=== PATIENT | male | born 1965 | race Caucasian/White ===

== ENCOUNTER → 2018-04-11 | Outpatient (CLI) | payer OTHER ==
[~2018-04-11] MED LIST: AMPHETAMINE PO; ATR20T PO; CATHETER FLUSH 10 ML SYR IV PRN; CHOL200018 PO; DIAZ10TA PO; GARL200T PO; LAMO100T PO; LISI-552 PO; MULT-974 PO; OMEG-9 PO; OMEP-10 PO; ONDA4TAB8 PO; OXYC-12 PO; RED600TA PO; SAWP1CAP PO; SRTR100T PO; THYR60TA2 PO
[2018-04-11 09:40] VITALS: BP 115/84
[2018-04-11 09:49] VITALS: BP 112/64
--- NOTE | 2018-04-12 07:16 | STRESS TEST ---
DATE OF SERVICE: 04/11/2018 EXERCISE MYOVIEW STRESS TEST REPORT REFERRING PHYSICIAN: Dr. Francisco. Baseline heart rate is 83, baseline blood pressure 102/78. Baseline EKG is sinus rhythm with no significant abnormality. In summary, the patient was injected with 10.97 mCi of technetium-99 Myoview and the resting images were obtained. Then, the patient started exercising with a baseline heart rate, blood pressure and EKG as mentioned above. The patient was able to exercise for 7 minutes on standard Nehemias protocol. With peak exercise level, EKG was showing no acute ischemic changes. Blood pressure was 141/87. During recovery, heart rate and blood pressure returned to baseline. EKG returned to baseline. The resting and stress images were reviewed and compared in the short axis, horizontal long axis and vertical long axis views. Review of the images showed diaphragmatic attenuation with typical male pattern and no significant ischemia or infarction on SPECT images. SSS is 3, SDS 3, TID value 0.98. On the gated images, the left ventricle appeared to be in normal size with normal contractility. Calculated ejection fraction is 63%. CONCLUSION: 1. Fair exercise tolerance, a total of 7 minutes on standard Nehemias protocol, total of 8.3 METS achieving 92% of maximum expected heart rate. 2. Appropriate heart rate and blood pressure response to exercise returned to baseline during recovery. 3. Typical male pattern with diaphragmatic attenuation with no significant ischemia or infarction on SPECT images. Job ID: [id number] DocumentID: [id number] Dictated Date: 04/12/2018 06:39:42 Auto Glass Technician Date: 04/12/2018 07:15:50 Dictated By: MARVIN VERDUZCO MD
== END ==
LOC: CARD 07:31
PROVIDERS: ATTEND Internal Medicine Cardiovascular Disease
DX: R07.89 Other chest pain (principal); I10 Essential (primary) hypertension; E78.2 Mixed hyperlipidemia; E78.00 Pure hypercholesterolemia, unspecified; K21.9 Gastro-esophageal reflux disease without esophagitis
CPT/HCPCS: 78452; 93017

== ENCOUNTER → 2018-04-30 | Outpatient (CLI) | payer OTHER ==
[~2018-04-30] MED LIST changes: -CATHETER FLUSH 10 ML SYR IV PRN
== END ==
LOC: CARD 08:43
PROVIDERS: ATTEND Internal Medicine Cardiovascular Disease
DX: R07.89 Other chest pain (principal); I10 Essential (primary) hypertension; E78.2 Mixed hyperlipidemia; E78.00 Pure hypercholesterolemia, unspecified; K21.9 Gastro-esophageal reflux disease without esophagitis; I07.1 Rheumatic tricuspid insufficiency
CPT/HCPCS: 93306

== ENCOUNTER 2019-11-11 14:55 | Emergency (ER) | payer OTHER ==
[~2019-11-11] VITALS: Ht 167.7 cm; Wt 72.6 kg
[~2019-11-11 14:55] MED LIST changes: -LAMO100T PO; +LAMO100T5 PO
[2019-11-11] MEDS ORDERED: KETOROLAC 30 MG/ML VIAL IVP ONE (15:15)
[2019-11-11] MEDS ORDERED: ORPHENADRINE 60 MG/2 ML (NORFLEX) AMP IV ONE (15:15)
[2019-11-11] MEDS ORDERED: fentaNYL INJECTION 100 MCG/2 ML AMP IVP ONE (15:15)
--- NOTE | 2019-11-11 15:16 | ED Back Pain ---
General Chief Complaint: Back Problems Stated Complaint: BACK PAIN Source of Information: Patient Exam Limitations: No Limitations History of Present Illness Date Seen by Provider: November 11, 2019 Time Seen by Provider: 15:13 Initial Comments To ER with right-sided low back pain that began yesterday. He bent down to pepper picker a small piece of wood out of the yard after he finished mowing and had sudden onset of worsening of his chronic low back pain. This is right-sided greater than left. He does report some mild tingling sensation in both feet but has normal sensation and can feel everything fine he states. He is able to move both legs. No fever no chills. No loss of sensation of genitals or loss of control of bowel or bladder. Is taken to the [facility] yesterday for this pain and was given prednisone Toradol injection and Flexeril prescription. Denies much improvement despite taking these. 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, states he'll also need a note to be off the rest of the week. Location: Lumbar Spine, Paraspinous Muscles Timing/Duration: 1-2 Days Severity: Moderate Pain/Injury Location: Back Associated Symptoms: lower back pain Allergies and Home Medications Allergies Coded Allergies: codeine (Unverified Adverse Reaction, Unknown, 09/29/14) MAKES HIM FEEL DRUNK Home Medications Atorvastatin 20 Mg Tablet, 20 MG PO DAILY, (Reported) Lamotrigine 100 Mg Tablet, 100 MG PO HS, (Reported) Lisinopril 20 Mg Tablet, 20 MG PO DAILY, (Reported) Omeprazole 20 Mg Capsule.dr, 20 MG PO HS, (Reported) Ondansetron 4 Mg Tab.rapdis, 4 MG PO Q4H PRN for NAUSEA/VOMITING Prescribed by: RICHARD GIBBONS on 10/04/15 1319 [Amphetamine] , 200 MG PO BID, (Reported) Patient Home Medication List Home Medication List Reviewed: Yes Review of Systems Constitutional: see HPI; No chills, No fever EENTM: see HPI Respiratory: no symptoms reported Cardiovascular: no symptoms reported Genitourinary: no symptoms reported Musculoskeletal: see HPI, back pain Skin: no symptoms reported Psychiatric/Neurological: No Symptoms Reported Past Dsnbnxq-Ophunk-Skvbim Hx Patient Social History Alcohol Use: Denies Use Recreational Drug Use: No Smoking Status: Never a Smoker 2nd Hand Smoke Exposure: No Recent Hopitalizations: No Physical Abuse: No Sexual Abuse: No Mistreated: No Fear: No Immunizations Up To Date Date of Pneumonia Vaccine: Feb 06, 2010 Date of Influenza Vaccine: May 01, 2014 Seasonal Allergies Seasonal Allergies: No Past Medical History Surgeries: Yes Abdominal Respiratory: No Cardiac: Yes (TACHYCARDIA) High Cholesterol, Hypertension Neurological: No Reproductive Disorders: No Genitourinary: No Gastrointestinal: Yes (INGUINAL HERNIA) Musculoskeletal: No Endocrine: No Cancer: No Psychosocial: Yes ADD/ADHD Blood Disorders: No Family Medical History Heart Disease Physical Exam Vital Signs Vital Signs - First Documented 11/11/19 15:11 Temp 37.0 Pulse 97 Resp 18 B/P (MAP) 137/90 (106) O2 Delivery Room Air Capillary Refill : Height, Weight, BMI Height: 5'6" Weight: 150lbs. oz. 68.702409vp; BMI Method:Stated General Appearance: WD/WN, Mild Distress (unable to stand without assistance because of pain, any movement causes him to yell out.) Neck: Full Range of Motion, Normal Inspection Respiratory: No Accessory Muscle Use, No Respiratory Distress Gastrointestinal: Normal Bowel Sounds, Non Tender, Soft Back: Normal Inspection, Decreased Range of Motion; No Vertebral Tenderness Extremity: Normal Capillary Refill, Normal Inspection Neurologic/Psychiatric: Alert, Oriented x3 Skin: Normal Color, Warm/Dry Progress/Results/Core Measures Results/Orders Lab Results Laboratory Tests Test 11/11/19 15:05 Range/Units White Blood Count 11.2 H 4.3-11.0 10^3/uL Red Blood Count 4.99 4.35-5.85 10^6/uL Hemoglobin 15.6 13.3-17.7 G/DL Hematocrit 46 40-54 % Mean Corpuscular Volume 91 80-99 FL Mean Corpuscular Hemoglobin 31 25-34 PG Mean Corpuscular Hemoglobin Concent 34 32-36 G/DL Red Cell Distribution Width 12.3 10.0-14.5 % Platelet Count 295 130-400 10^3/uL Mean Platelet Volume 9.9 7.4-10.4 FL Neutrophils (%) (Auto) 73 42-75 % Lymphocytes (%) (Auto) 20 12-44 % Monocytes (%) (Auto) 7 0-12 % Eosinophils (%) (Auto) 1 0-10 % Basophils (%) (Auto) 0 0-10 % Neutrophils # (Auto) 8.2 H 1.8-7.8 X 10^3 Lymphocytes # (Auto) 2.2 1.0-4.0 X 10^3 Monocytes # (Auto) 0.8 0.0-1.0 X 10^3 Eosinophils # (Auto) 0.1 0.0-0.3 10^3/uL Basophils # (Auto) 0.0 0.0-0.1 10^3/uL Sodium Level 138 135-145 MMOL/L Potassium Level 4.0 3.6-5.0 MMOL/L Chloride Level 107 98-107 MMOL/L Carbon Dioxide Level 21 21-32 MMOL/L Anion Gap 10 5-14 MMOL/L Blood Urea Nitrogen 19 H 7-18 MG/DL Creatinine 1.36 H 0.60-1.30 MG/DL Estimat Glomerular Filtration Rate 55 BUN/Creatinine Ratio 14 Glucose Level 90 70-105 MG/DL Calcium Level 9.8 8.5-10.1 MG/DL C-Reactive Protein High Sensitivity 0.09 0.00-0.50 MG/DL My Orders Orders - JUANA MAURICIO APRN Cbc With Automated Diff (11/11/19 15:11) Basic Metabolic Panel (11/11/19 15:11) Hs C Reactive Protein (11/11/19 15:11) Ct Lumbar Spine Wo (11/11/19 15:11) Ed Iv/Invasive Line Start (11/11/19 15:11) Ketorolac Injection (Toradol Injection) (11/11/19 15:15) Fentanyl Injection (Sublimaze Injection (11/11/19 15:15) Orphenadrine Injection (Norflex Injectio (11/11/19 15:15) Lactated Ringers (Lr 1000 Ml Iv Solution (11/11/19 16:00) Medications Given in ED Current Medications Medications Dose Ordered Sig/Katya Route Start Time Stop Time Status Last Admin Dose Admin Fentanyl Citrate 50 mcg ONCE ONCE IVP 11/11/19 15:15 11/11/19 15:16 DC 11/11/19 15:19 50 MCG Ketorolac Tromethamine 15 mg ONCE ONCE IVP 11/11/19 15:15 11/11/19 15:16 DC 11/11/19 15:19 15 MG Orphenadrine Citrate 60 mg ONCE ONCE IV 11/11/19 15:15 11/11/19 15:16 DC 11/11/19 15:19 60 MG Vital Signs/I&O 11/11/19 15:11 Temp 37.0 Pulse 97 Resp 18 B/P (MAP) 137/90 (106) O2 Delivery Room Air Diagnostic Imaging Diagonstic Imaging: CT Comments NAME: NOEL CHENG REC#: [id number] PT STATUS: REG ER : 1965 PHYSICIAN: JUANA MAURICIO APRN ADMIT DATE: 11/11/19/ER Signed Date of Exam:11/11/19 CT LUMBAR SPINE WO PROCEDURE: CT lumbar spine without contrast. TECHNIQUE: Multiple contiguous axial images were obtained through the lumbar spine without the use of intravenous contrast. Sagittal and coronal reformations were then performed. Auto Exposure Controls were utilized during the CT exam to meet ALARA standards for radiation dose reduction. INDICATION: Back pain. [place] something pull while bending over. COMPARISON: None. FINDINGS: Five lumbar type vertebral bodies are visualized with the last well-formed disc space designated L5-S1. No acute fracture or dislocation is seen in the lumbar spine. Alignment is anatomic. The vertebral body heights and disc spaces are well maintained. No focal osseous lesions are identified. Small Schmorl's nodes are visualized in the lumbar spine at the L2-L3 and L4-L5 levels. Mild degenerative changes are present in the lumbar spine with disc bulges, facet hypertrophy, and marginal osteophytes. These appear greatest at the L5-S1 level. The surrounding soft tissues of the lumbar spine demonstrate no acute abnormalities. Views of the pelvis demonstrate normal alignment of the SI joints bilaterally. IMPRESSION: 1. No acute fracture or dislocation in the lumbar spine. 2. Mild degenerative changes in the lumbar spine, greatest at L5-S1. Dictated by: Dictated on workstation # [id number] Dict: 11/11/19 1542 Trans: 11/11/19 1554 [id number] Interpreted by: ANDRADE DELANEY DO Electronically signed by: ANDRADE DELANEY DO 11/11/19 1554 Departure Communication (Admissions) 2714-he was offered additional pain medication at this time but declines, states he doesn't need any right now. I'll give a liter of IV fluids given slightly bumped BUN/creatinine. Impression Primary Impression: Acute low back pain Qualified Codes: M54.5 - Low back pain Disposition: 01 HOME, SELF-CARE Condition: Stable Departure-Patient Inst. Decision time for Depature: 15:59 Referrals: FALLON JOHNSON MD (PCP/Family) Primary Care Physician Patient Instructions: Low Back Pain (DC) Add. Discharge Instructions: 1. Follow-up with your doctor or [facility] later this week for recheck. If pain persists discuss scheduling an MRI. All discharge instructions reviewed with patient and/or family. Voiced understanding. Work/School Note: Work Release Form Date Seen in the Emergency Department: November 11, 2019 Return to Work: November 18, 2019 Images Torso/Trunk 1 - JUANA MAURICIO APRN November 11, 2019 15:16
[2019-11-11 15:19] LABS: BASOPHILS % (AUTO) 0 % (0-10); EOSINOPHILS # (AUTO) 0.1 10^3/uL (0.0-0.3); EOSINOPHILS % (AUTO) 1 % (0-10); HEMATOCRIT 46 % (40-54); HEMOGLOBIN 15.6 G/DL (13.3-17.7); LYMPHOCYTES # (AUTO) 2.2 X 10^3 (1.0-4.0); LYMPHOCYTES % (AUTO) 20 % (12-44); MEAN CORPUSCULAR HEMOGLOBIN 31 PG (25-34); MEAN CORPUSCULAR HGB CONC 34 G/DL (32-36); MEAN CORPUSCULAR VOLUME 91 FL (80-99); MEAN PLATELET VOLUME 9.9 FL (7.4-10.4); MONOCYTES # (AUTO) 0.8 X 10^3 (0.0-1.0); MONOCYTES % (AUTO) 7 % (0-12); NEUTROPHILS # (AUTO) 8.2 X 10^3 (1.8-7.8); NEUTROPHILS % (AUTO) 73 % (42-75); PLATELET COUNT 295 10^3/uL (130-400); RED CELL DISTRIBUTION WIDTH 12.3 % (10.0-14.5); WHITE BLOOD COUNT 11.2 10^3/uL (4.3-11.0)
[2019-11-11 15:26] LABS: CALCIUM 9.8 MG/DL (8.5-10.1)
[2019-11-11 15:30] LABS: CREATININE SERUM 1.36 MG/DL (0.60-1.30)
--- NOTE | 2019-11-11 15:51 | Diagnostic Imaging Report ---
PROCEDURE: CT lumbar spine without contrast. TECHNIQUE: Multiple contiguous axial images were obtained through the lumbar spine without the use of intravenous contrast. Sagittal and coronal reformations were then performed. Auto Exposure Controls were utilized during the CT exam to meet ALARA standards for radiation dose reduction. INDICATION: Back pain. [place] something pull while bending over. COMPARISON: None. FINDINGS: Five lumbar type vertebral bodies are visualized with the last well-formed disc space designated L5-S1. No acute fracture or dislocation is seen in the lumbar spine. Alignment is anatomic. The vertebral body heights and disc spaces are well maintained. No focal osseous lesions are identified. Small Schmorl's nodes are visualized in the lumbar spine at the L2-L3 and L4-L5 levels. Mild degenerative changes are present in the lumbar spine with disc bulges, facet hypertrophy, and marginal osteophytes. These appear greatest at the L5-S1 level. The surrounding soft tissues of the lumbar spine demonstrate no acute abnormalities. Views of the pelvis demonstrate normal alignment of the SI joints bilaterally. IMPRESSION: 1. No acute fracture or dislocation in the lumbar spine. 2. Mild degenerative changes in the lumbar spine, greatest at L5-S1. Dictated by: Dictated on workstation # [id number]
[2019-11-11] MEDS ORDERED: HYDR-3870 PO (15:59)
[2019-11-11] MEDS ORDERED: LACTATED RINGERS 1,000 ML IV SCH (16:00)
[2019-11-11 16:49] VITALS: BP 124/71
--- OUTSIDE RECORDS SUMMARY | 2019-11-11 19:05 | XMS REPORT ---
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 [employer] [facility] [facility] Address [address] [address] Care Team Providers Care Environmental Services Worker Name Role Phone FLEX, GUILLERMO Unavailable Unavailable FLEX, GUILLERMO Unavailable FALLON JOHNSON Unavailable Unavailable FALLON JOHNSON Unavailable SKYLAR THOMPSON Unavailable Unavailable FALLON JOHNSON Unavailable FLEX, GUILLERMO Unavailable FALLON JOHNSON Unavailable FLEX, GUILLERMO Unavailable FLEX, GUILELRMO Unavailable FLEX, GUILLERMO Unavailable FLEX, GUILLERMO Unavailable FLEX, GUILLERMO Unavailable LANE DIAZ Unavailable FLEX, GUILLERMO Unavailable FLEX, GUILLERMO Unavailable FALLON JOHNSON Unavailable GERRY BOATENG Unavailable FLEX, GUILLERMO Unavailable FLEX, GUILLERMO Unavailable FLEX, GUILLERMO Unavailable FLEX, GUILLERMO Unavailable FLEX, GUILLERMO Unavailable FRANKLIN HIGGINS Unavailable FLEX, GUILLERMO Unavailable FLEX, GUILLERMO Unavailable FLEX, GUILLERMO Unavailable ERASTO ARRIAGA Unavailable FLEX, GUILLERMO Unavailable FALLON JOHNSON Unavailable FLEX, GUILLERMO Unavailable HUERTDARRION, FALLON Unavailable FLEX, GUILLERMO Unavailable FLEX, GUILLERMO Unavailable FLEX, GUILLERMO Unavailable Migration, Doctor Unavailable Unavailable Migration, Doctor Unavailable Unavailable Migration, Doctor Unavailable Unavailable FLEX, GUILLERMO Unavailable DONNA, SKYLAR Unavailable HUERTER, FALLON Unavailable HUERTDARRION, FALLON Unavailable FLEX, GUILLERMO Unavailable FLEX, GUILLERMO Unavailable SKYLAR THOMPSON Unavailable ERTER, FALLON Unavailable ERTDARRION, FALLON Unavailable FLEX, GUILLERMO Unavailable ERTFALLON MAIER Unavailable FLEX, GUILLERMO Unavailable FLEX, GUILLERMO Unavailable FLEX, GUILLERMO Unavailable DONNA, SKYLAR [facility]available [facility] Un[facility] FLEX, GUILLERMO Unavailable FLEX, GUILLERMO Unavailable FALLON SUMMERS Unavailable FLEX, GUILLERMO Unavailable FLEX, GUILLERMO Unavailable FALLON JOHNSON Unavailable Unavailable MARVIN VERDUZCO MD Unavailable Unavailable Unavailable Unavailable SKYLAR THOMPSON Unavailable FLEX, GUILLERMO Unavailable DONNA SKYLAR Unavailable HOLLEY PEREA DO Unavailable Unavailable MD Erick JOHNSON PCP Unavailable Unavailable Unavailable Unavailable Unavailable Unavailable Unavailable Unavailable Unavailable Unavailable Allergies Normalized Allergy Reported Date of Reaction(s) Care Provider Facility Allergy Type classification allergen Allergy Onset Drug Allergy Amoxicillin / Amoxicillin / 09-10-2018 - stomach up set [facility] (1 source.) Clavulanate Clavulanate [facility] [address] [facility] nter Translations: of [facility] [ Augmentin] [place] ([address]) Medications Medication Ingredient Drug Dose Dates Status Sig Sig Care Class(es) (Normalized) (Original) Provid er no Acetaminoph no Active no Tylenol no information en information information Active name (1 source.) amoxicillin amoxicillin Penicillin- 12-11-19 Active no Augme ntin no 875 mg / / class 18 - information 875-125 MG name clavulanate clavulanate Antibacteri 12-18-19 Orally every 125 mg oral Translation al 18 12 hrs 1 tablet (1 s: [ tablet 12h source.) Augmentin Dec, 875-125 MG] Dec, 07 days Active cyclobenzap cyclobenzap Muscle 10 mg 09-11-19 Active take 1 Cyc lobenzapr no rine rine Relaxant 19 tablet by ine HCl 10 name hydrochlori Translation mouth three MG Orally de 10 mg s: [ times daily Three times oral tablet Cyclobenzap as needed a day 1 (3 rine HCl 10 tablet as sources.) mg, needed 8h 11 Cyclobenzap Aug, 2018 7 rine HCl 10 days Active mg] 10 mg 03-06-2018 Suspended no Cycloben no name - inform zaprine 04-05-2018 ation HCl 10 mg Orally Three times a day 1 tablet as needed 8h Mar, 4 Apr, 2018 30 days Not-Taki ng HYDROcodone HYDROcodone Opioid 03-06-20 Active no Hydrocodon e- no bitartrate / ibuprofen Agonist, 18 - information Ibuprofen name 7.5 mg / Translation Nonsteroida 03-11-20 7.5-200 MG ibuprofen s: [ l 18 Orally 3 200 mg oral Hydrocodone Anti-inflam times a day tablet (1 -Ibuprofen matory Drug 1 tablet as source.) 7.5-200 MG] needed 8h Mar, 9 Mar, 2018 05 days Active no Ibuprofen Nonsteroida Active no Ibuprofen no information l information Active name (1 source.) Anti-inflam matory Drug 24 hr Methylpheni Central 27 mg 08-20-19 Active take 1 Methylp henid no methylpheni date Nervous 19 tablet by ate HCl ER nam e date Translation System mouth once 27 MG Orally hydrochlori s: [ Stimulant daily in the Once a day de 27 mg Methylpheni morning for ADHD 1 extended date HCl ER tablet in release 27 MG] the morning oral tablet Aug, (2 28 days sources.) Active Problems Problem Normalized Date Last Normalized Normalized Provider Juan lin Classification Problem(s) Recorded Problem Problem Sta tus Duration Attention-defi Attention Chronic Active GUILLERMO Communi ty cit, conduct, deficit [place] [address] [facility] and disruptive disorder of [facility] behavior without [place] ([address]) disorders (20 mention of sources.) hyperactivity Translations: [ - Attention deficit disorder of childhood without mention of hyperactivity 314.00, - Attention deficit disorder of childhood without mention of hyperactivity 314.00] Other Diarrhea, Episodic Active no name no informati on gastrointestin unspecified al disorders (3 sources.) Fluid and Hypovolemia Episodic Active MD FALLON Nichols Via electrolyte Translations: ERT 12250 [facility] disorders (4 [ Hypovolemia] (Work Phone: Hospital sources.) (24560) ) NEGATED Mixed no information Active MARVIN VERDUZCO , Not Available no hyperlipidemia (85768) information (5 Translations: sources.) [ PURE HYPERCHOLESTER OLEMIA, UNSPECIFIED] Nonspecific Other chest Episodic Active GUILLERMO Communit y chest pain (20 pain [place] [address] [facility] sources.) Translations: of [facility] [ - Chest [place] ([address]) pain, exertional R07.9, - Exertional chest pain R07.9, - Chest pain, exertional R07.9, - Exertional chest pain R07.9] 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 (44588) 09-10-2018 Ketorolac tromethamine no information no name [facility] (45246) 09-10-2018 Therapeutic no information no name [facility] ealt prophylactic/dx [facility] injection subq/im [place] (02169) Immunizations Normalized Immunization Date Notes Care Provider Facili ty Immunization influenza, seasonal, 04-21-2019 no information no name [facility] (31773) influenza, seasonal, 05-03-2018 no information no name [facility] (02958) TORADOL (IM) 60 09-10-2018 no information ION ARMACHANDRAN [facility] MG/2ML (UP TO 15 MG) [address] [facility] (88869) Results Test Name Value Interpretation Reference Range Date Time Fa cility (Normalized) (Normalized) (Medline Reference) laboratory on 2019-11-11 Anion gap 10 mmol/L (NEG) 3 - 11 mmol/L 11-11-2019 PENDING LOCATION [Moles/Vol] 11:05-0400 [facility] (06863) Basophils (Bld) 0.0 10*3/uL (NEG) 0 - 0.3 10*3/uL 11-11-2019 PENDING LOCATION [#/Vol] 11:05-0400 [facility] (66296) Basophils/100 0 % (NEG) 0.5 - 1 % 11-11-2019 PENDING LOCATION WBC (Bld) 11:05-0400 [facility] (98048) Calcium 9.8 mg/dL (NEG) 8.5 - 10.2 mg/dL 11-11-2019 PENDI NG LOCATION [Mass/Vol] 11:05-0400 [facility] (33999) Chloride 107 mmol/L (NEG) 95 - 106 mmol/L 11-11-2019 PENDI NG LOCATION [Moles/Vol] 11:05-0400 [facility] (16494) CO2 [Moles/Vol] 21 mmol/L (NEG) 23 - 29 mmol/L 11-11-2019 P ENDING LOCATION 11:05-0400 [facility] (97563) Creatinine 1.36 mg/dL (H) 11-11-2019 PENDING LOCATI ON [Mass/Vol] 11:05-0400 [facility] (36089) Creatinine and 55 (no code) 11-11-2019 PENDING LOC ATION Glomerular 11:05-0400 [facility] (47900) filtration rate.predicted panel - Serum, Plasma or Blood CRP [Mass/Vol] 0.09 (NEG) 11-11-2019 PENDING LOC ATION 11:05-0400 [facility] (77939) Eosinophils 0.1 10*3/uL (NEG) 0.05 - 0.5 11-11-2019 PENDING LOCATION (Bld) [#/Vol] 10*3/uL 11:05-0400 [facility] (49473) Eosinophils/100 1 % (NEG) 1 - 4 % 11-11-2019 [facility] LOCATION WBC (Bld) 11:05-0400 [facility] (52369) Erythrocyte 12.3 % (NEG) 11.6 - 14.6 % 11-11-2019 [facility] LOCATION distribution 11:05-0400 [facility] (89661) width (RBC) [Ratio] Glucose 90 mg/dL (NEG) 60 - 125 mg/dL 11-11-2019 PENDING LOCATION [Mass/Vol] 11:05-0400 [facility] (80961) Hematocrit (Bld) 46 % (NEG) 36.1 - 50.3 % 11-11-2019 P ENDING LOCATION [Volume 11:05-0400 [facility] (76690) fraction] Hemoglobin (Bld) 15.6 g/dL (NEG) 12.1 - 17.2 g/dL 11-11-2019 PENDING LOCATION [Mass/Vol] 11:05-0400 [facility] (07470) Lymphocytes 2.2 10*3/uL (NEG) 0.9 - 2.9 11-11-2019 PENDING LOCATION (Bld) [#/Vol] 10*3/uL 11:05-0400 [facility] (49730) Lymphocytes/100 20 % (NEG) 20 - 40 % 11-11-2019 [facility] LOCATION WBC (Bld) 11:05-0400 [facility] (42570) MCH (RBC) 31 pg (NEG) 27 - 31 pg 11-11-2019 PENDING LOC ATION [Entitic mass] 11:05-0400 [facility] (89207) MCHC (RBC) 34 g/dL (NEG) 32 - 36 g/dL 11-11-2019 PENDING LOCATION [Mass/Vol] 11:05-0400 [facility] (52322) MCV (RBC) 91 (NEG) 11-11-2019 PENDING LOCATI ON [Entitic vol] 11:05-0400 [facility] (64847) Monocytes (Bld) 0.8 10*3/uL (NEG) 0.3 - 0.9 11-11-2019 PEND ING LOCATION [#/Vol] 10*3/uL 11:05-0400 [facility] (52855) Monocytes/100 7 % (NEG) 2 - 8 % 11-11-2019 PENDING LOCATION WBC (Bld) 11:05-0400 [facility] (14817) Neutrophils 8.2 10*3/uL (H) 1.7 - 7 10*3/uL 11-11-2019 PE NDING LOCATION (Bld) [#/Vol] 11:05-0400 [facility] (99448) Neutrophils/100 73 % (NEG) 40 - 60 % 11-11-2019 PENDIN G LOCATION WBC (Bld) 11:0400 [facility] (99955) Platelet mean 9.9 (NEG) 11-11-2019 PENDING LOCA TION volume (Bld) 11:05-0400 [facility] (61756) [Entitic vol] Platelets (Bld) 295 10*3/uL (NEG) 150 - 450 11-11-2019 PEND ING LOCATION [#/Vol] 10*3/uL 11:05-0400 [facility] (57182) Potassium 4.0 mmol/L (NEG) 3.7 - 5.2 mmol/L 11-11-2019 PEND ING LOCATION [Moles/Vol] 11:05-0400 [facility] (49225) RBC (Bld) 4.99 10*6/uL (NEG) 4.2 - 6.1 11-11-2019 PENDING L OCATION [#/Vol] 10*6/uL 11:05-0400 [facility] (29471) Sodium 138 mmol/L (NEG) 135 - 145 mmol/L 11-11-2019 PEND ING LOCATION [Moles/Vol] 11:05-0400 [facility] (28305) Urea nitrogen 19 mg/dL (H) 7 - 20 mg/dL 11-11-2019 PENDI NG LOCATION [Mass/Vol] 11:05-0400 [facility] (27621) Urea 14 mg/mg (no code) 6 - 22 mg/mg 11-11-2019 PENDING L OCATION nitrogen/Creatin 11:050400 [facility] (88423) ine [Mass ratio] WBC (Bld) 11.2 10*3/uL (H) 3.5 - 10.5 11-11-2019 PENDING LOCATION [#/Vol] 10*3/uL 11: [facility] (22668) laboratory on 2019-10-10 Appearance (U) CLEAR (N) [facility] (19151) Bacteria LM.HPF NONE SEEN (N) [facility] (Urine sed) [facility] [#/Area] [facility] (81673) Bilirubin Ql (U) Negative (N) [facility] (72881) Color (U) YELLOW (N) [facility] (89651) Creatinine (U) 113 mg/dL (N) [facility] [Mass/Vol] [facility] (46745) Epithelial NONE SEEN (N) [facility] cells.squamous [facility] LM.HPF (Urine [facility] sed) [#/Area] (73908) Glucose Ql (U) Negative (N) [facility] (70018) Hemoglobin Ql Negative (N) [facility] h (U) [facility] (61286) Hyaline casts NONE SEEN (N) [facility] (Urine sed) [facility] [#/Area] [facility] (09831) Ketones Ql (U) Negative (N) [facility] (80353) Leukocyte Negative (N) [facility] esterase Test Center [facility] Ql (U) [facility] (99048) Nitrite Ql (U) Negative (N) [facility] (31408) pH (U) 5.5 [pH] (N) 4.6 - 8 [pH] [facility] alth [facility] (66816) Protein (U) 6 mg/dL (N) 0 - 20 mg/dL [facility] alth [Mass/Vol] [facility] (65901) Protein Ql (U) Negative (N) [facility] (43723) Protein/Creatini 53 (N) [facility] ne (U) [Mass [facility] ratio] [facility] (75414) RBC LM.HPF NONE SEEN (N) [facility] h (Urine sed) [facility] [#/Area] [facility] (09449) Specific gravity 1.019 (N) [facility] (U) [[facility]] [facility] (92471) WBC LM.HPF NONE SEEN (N) [facility] (Urine sed) [facility] [#/Area] [facility] (40451) laboratory on 2019-08-30 Albumin 4.6 g/dL (N) 3.4 - 5.4 g/dL [facility] [Mass/Vol] [facility] (99164) Albumin/Globulin 2.0 {ratio} (N) 1 - 2.5 {ratio} Comm [facility] [Mass ratio] [facility] (36903) ALP [Catalytic 92 U/L (N) 44 - 147 U/L [facility] Health activity/Vol] [facility] (67459) ALT [Catalytic 44 U/L (N) 4 - 40 U/L [facility] ealth activity/Vol] [facility] (93796) AST [Catalytic 27 U/L (N) 10 - 34 U/L [facility] activity/Vol] [facility] (46295) Bilirubin 0.6 mg/dL (N) 0.1 - 1.2 mg/dL [facility] [Mass/Vol] [facility] (09094) Calcium 9.9 mg/dL (N) 8.5 - 10.2 mg/dL [facility] [Mass/Vol] [facility] (31020) Chloride 103 mmol/L (N) 95 - 106 mmol/L [facility] [Moles/Vol] [facility] (79293) Cholesterol 204 mg/dL (H) 180 - 200 mg/dL [facility] [Mass/Vol] [facility] (10448) Cholesterol in 45 mg/dL (N) [facility] HDL [Mass/Vol] [facility] (24608) Cholesterol in 123 mg/dL (H) 0 - 100 mg/dL [facility] LDL [Mass/Vol] [facility] (68535) Cholesterol non 159 mg/dL (H) [facility] HDL [Mass/Vol] [facility] (06338) Cholesterol.tota 4.5 {ratio} (N) [facility] Hea lth l/Cholesterol in [facility] HDL [Mass ratio] [facility] (25449) CO2 [Moles/Vol] 26 mmol/L (N) 23 - 29 mmol/L [facility] (59614) Creatinine 1.43 mg/dL (H) [facility] h [Mass/Vol] [facility] (23717) GFR/1.73 sq M 65 (N) 90 - 120 [facility] He alth predicted among mL/min/{1.73_m2} mL/min/{1.73_m2} Center o f [facility] blacks MDRD [facility] (S/P/Bld) [Vol (93014) rate/Area] GFR/1.73 sq 56 (L) 90 - 120 [facility] th M.predicted MDRD mL/min/{1.73_m2} mL/min/{1.73_m2} [facility] (S/P/Bld) [Vol [facility] rate/Area] (19800) Globulin (S) 2.3 g/dL (N) 2 - 3.5 g/dL Community ealth [Mass/Vol] [facility] (49424) Glucose 116 mg/dL (N) 60 - 125 mg/dL [facility] [Mass/Vol] [facility] (54787) Potassium 4.6 mmol/L (N) 3.7 - 5.2 mmol/L [facility] [Moles/Vol] [facility] (94438) Protein 6.9 g/dL (N) 6.4 - 8.3 g/dL [facility] [Mass/Vol] [facility] (27550) Sodium 139 mmol/L (N) 135 - 145 mmol/L [facility] [Moles/Vol] [facility] (62814) Triglyceride 235 mg/dL (H) 0 - 150 mg/dL [facility] [Mass/Vol] [facility] (57148) Urea nitrogen 21 mg/dL (N) 7 - 20 mg/dL [facility] [Mass/Vol] [facility] (74714) Urea 15 mg/mg (N) 6 - 22 mg/mg Community [facility] alth nitrogen/Creatin Center [facility] [Mass ratio] [facility] (65361) other on 2018-03-23 Albumin/Globulin 1.7 (N) [facility] Hea lth mass ratio Center [facility] (16746) Cholesterol in 153 (H) [facility] Healt h LDL mass conc [facility] (90883) Cholesterol non 192 (H) [facility] HDL mass conc [facility] (36268) Cholesterol.tota 4.9 (N) [facility]/Cholesterol in [facility] HDL mass ratio [facility] (29179) Globulin 2.7 (N) [facility] h Calculated mass [facility] (S) [facility] (96842) metabolic panel on 2018-03-23 Albumin mass 4.7 g/dL (N) 3.4 - 5.4 g/dL [facility] (83642) ALP enzyme 85 U/L (N) 44 - 147 U/L Community [facility] alth act/vol [facility] (07106) ALT enzyme 20 U/L (N) 4 - 40 U/L [facility] act/vol [facility] (76435) AST enzyme 13 U/L (N) 10 - 34 U/L [facility] (78872) Bilirubin mass 0.5 mg/dL (N) 0.1 - 1.2 mg/dL [facility] (38759) Calcium mass 10.2 mg/dL (N) 8.5 - 10.2 mg/dL [facility] (66709) Chloride molar 103 mmol/L (N) 95 - 106 mmol/L [facility] (80602) CO2 molar conc 27 mmol/L (N) 23 - 29 mmol/L [facility] (12645) Creatinine mass 1.30 mg/dL (N) [facility] conc [facility] (26294) GFR/1.73 sq M 74 (N) 90 - 120 [facility] alth predicted among mL/min/{1.73_m2} mL/min/{1.73_m2} Center o [facility] blacks MDRD vol [facility] rate/area (02831) (S/P/Bld) GFR/1.73 sq 64 (N) 90 - 120 [facility] th M.predicted MDRD mL/min/{1.73_m2} mL/min/{1.73_m2} Center [facility] rate/area [facility] (94280) Glucose mass 99 mg/dL (N) 60 - 125 mg/dL [facility] (85726) Potassium molar 4.4 mmol/L (N) 3.7 - 5.2 mmol/L Comm [facility] (58297) Protein mass 7.4 g/dL (N) 6.4 - 8.3 g/dL [facility] (72907) Sodium molar 139 mmol/L (N) 135 - 145 mmol/L [facility] (62405) Urea nitrogen 24 mg/dL (N) 7 - 20 mg/dL [facility] (52283) Urea NOT APPLICABLE (no code) [facility] nitrogen/Creatin [facility] mass ratio [facility] (76961) imm/path on 2018-03-23 Prostate 1.1 ng/mL (N) 0 - 4 ng/mL [facility] lth specific Ag [facility] (35802) cardiac on 2018-03-23 Cholesterol in 49 mg/dL (N) [facility] HDL mass [facility] (73798) Cholesterol mass 241 mg/dL (H) 180 - 200 mg/dL Comm [facility] (99952) Triglyceride 219 mg/dL (H) 0 - 150 mg/dL [facility] (82301) other on 2017-04-14 Albumin/Globulin 1.8 {ratio} (no code) 1 - 2.5 {ratio} 7 Not Available mass ratio 09:05-0400 (68370) Cholesterol in 123 (H) 04-14-2017 Not Availab le LDL mass conc 09:12-0400 (58536) Cholesterol in 24 (no code) 04-14-2017 Not Availab le VLDL mass conc 09: (75610) Globulin 2.4 g/dL (no code) 2 - 3.5 g/dL 04-14-2017 Not Avail able Calculated mass 09: (82782) conc (S) metabolic panel on 2017-04-14 Albumin mass 4.3 g/dL (no code) 3.4 - 5.4 g/dL 04-14-2017 Not Available conc 09: (67366) ALP enzyme 91 U/L (no code) 44 - 147 U/L 04-14-2017 Not Avai lable act/vol 09: (85104) ALT enzyme 28 U/L (no code) 4 - 40 U/L 04-14-2017 Not Availa ble act/vol 09: (39564) AST enzyme 18 U/L (no code) 10 - 34 U/L 04-14-2017 Not Avail able act/vol 09: (29229) Bilirubin mass 0.4 mg/dL (no code) 0.1 - 1.2 mg/dL 04-14-2017 N ot Available conc 09: (95244) Calcium mass 9.8 mg/dL (no code) 8.5 - 10.2 mg/dL 04-14-2017 No t Available conc 09: (11248) Chloride molar 99 mmol/L (no code) 95 - 106 mmol/L 04-14-2017 N ot Available conc 09: (50805) CO2 molar conc 25 mmol/L (no code) 23 - 29 mmol/L 04-14-2017 No t Available 09: (12141) Creatinine mass 1.25 mg/dL (no code) 04-14-2017 Not Availa ble conc 09: (16317) GFR/1.73 sq M 78 (no code) 90 - 120 04-14-2017 Not Avai lable predicted among mL/min/{1.73_m2} mL/min/{1.73_m2} 09: (75946) blacks MDRD vol rate/area (S/P/Bld) GFR/1.73 sq M 67 (no code) 90 - 120 04-14-2017 Not Avai lable predicted among mL/min/{1.73_m2} mL/min/{1.73_m2} 09: (59813) non-blacks MDRD vol rate/area (S/P/Bld) Glucose mass 104 mg/dL (H) 60 - 125 mg/dL 04-14-2017 Not Available conc : (58456) Potassium molar 4.4 mmol/L (no code) 3.7 - 5.2 mmol/L 04-14-2017 Not Available conc : (87503) Protein mass 6.7 g/dL (no code) 6.4 - 8.3 g/dL 04-14-2017 Not Available conc : (98535) Sodium molar 138 mmol/L (no code) 135 - 145 mmol/L 04-14-2017 N ot Available conc : (67876) Urea nitrogen 18 mg/dL (no code) 7 - 20 mg/dL 04-14-2017 Not A vailable mass conc : (57630) Urea 14 mg/mg (no code) 6 - 22 mg/mg 04-14-2017 Not Avail able nitrogen/Creatin : (10594) ine mass ratio cardiac on 2017-04-14 Cholesterol in 46 mg/dL (no code) 04-14-2017 Not Availab le HDL mass conc 09: (02713) Cholesterol mass 193 mg/dL (no code) 180 - 200 mg/dL 04-14-2017 Not Available conc : (89618) Triglyceride 118 mg/dL (no code) 0 - 150 mg/dL 04-14-2017 Not A vailable mass conc : (63757) Vital Signs Vital Sign Value Interpretation Reference Date Time Care Prov ider Facility (Normalized) (Normalized) Range BMI (Body Mass 27.53 kg/m2 (no code) 15 - 25 kg/m2 09-10-2018 CH RISTY Community Index) 13:00-[id number] [place] [address] (13352) BMI (Body Mass 25.74 kg/m2 (no code) 15 - 25 kg/m2 03-22-2018 Melissa JOHNSON Community Index) 12:00762 [facility] (00047) BMI (Body Mass 25.92 kg/m2 (no code) 15 - 25 kg/m2 03-06-2018 CARLOS MURRAYCheyanne CORINA Community Index) 11:762 [facility] (25037) BMI (Body Mass 25.68 kg/m2 (no code) 15 - 25 kg/m2 01-25-2018 ILAN FLOWER Community Index) 10: [place] [address] [facility] (92899) BMI (Body Mass 26.02 kg/m2 (no code) 15 - 25 kg/m2 12-10-2017 Shannon HIGGINS Community Index) 17: [address] [place] [address] (30818) Body 97.4 [degF] (no code) 97.8 - 99.0 09-10-2018 [facility] Temperature [degF] 13:[address] (92419) Body 97.4 [degF] (no code) 97.8 - 99.0 03-22-2018 FALLON BOOTH [facility] Temperature [degF] 12:762 [facility] (29058) Body 97 [degF] (no code) 97.8 - 99.0 03-06-2018 [facility] Temperature [degF] 11:762 [facility] (74730) Body 97.7 [degF] (no code) 97.8 - 99.0 12-10-2017 FRANKLIN QUEVEDO [facility] Temperature [degF] 17:762 [facility] (20768) Body weight 72.76 kg (no code) kg 09-10-2018 ION Com munity 13:00-[address] (65890) Height 162.56 cm (no code) cm 09-10-2018 ION Commu nity 13:[address] [place] ([address]174) Height 162.56 cm (no code) cm 03-22-2018 [facility] 12:00-[address] [place] [address] (25689) Height 162.56 cm (no code) cm 03-06-2018 ERASTO GAJOSTIN [facility] 11:200400 [address] [place] [address] (66619) Height 162.56 cm (no code) cm 01-25-2018 GUILLERMO Parham nitcheyanne 10:200400 FLEX [address] [place] [address] (90525) Height 162.56 cm (no code) cm 12-10-2017 FRANKLIN HIGGINS [facility] 17:[address] [place] [address] ([id number]) Pulse Oximetry 99 % (no code) 95 - 100 % 01-[facility] [address] ([id number]) Pulse Oximetry 0 % (no code) 95 - 100 % 12-10-2017 URSULARUPAL CHANCE BURGESS [facility] 17:[address] [place] [address] ([id number]) Weight 68.04 kg (no code) kg 03-22-2018 FALLON JOHNSON [facility] 12:000400 [address] [place] [address] ([id number]) Weight 68.49 kg (no code) kg 03-06-[address] [facility] munity 11: [address] [place] [address] ([id number]) Weight 67.86 kg (no code) kg 01-25-2018 GUILLERMO [facility] 10:200400 FLEX [address] [place] [address] ([id number]) Weight 68.77 kg (no code) kg 12-10-2017 [facility]LIN HIGGINS [facility]:[address] [place] [address] ([id number]) Interventions No Information Plan of Treatment Normalized Care Care Detail Care Activity Date Care Provider F acility Activity (PSY-FU-20) [facility] 05-03-2018 GUILLERMO Parham nitcheyanne [facility] Psychiatry F/U [address] ([id number]) (PSY-FU-20) [facility] 08-09-2018 GUILLERMO MCCORD [facility] Psychiatry F/U 20 [facility] [address] [facility] ([id number]) Patient Education Low Back Pain (DC) no information MD FALLON SUMMERS [address] [phone] (Work Phone: [place] [address] ) ([id number]) Patient referral no information no information MD FALLON JOHNSON [address] [address] (Work Phone: [facility] ) ([id number]) Goals Patient Goal Desired Goal no information no information Social History Normalized Code Original Code Date Value Tobacco smoking status Tobacco smoking status no information Never smoked tobacco NHIS NJIS (finding) no information no information 10-04-2015 Denies Use no information no information 10-04-2015 No no information no information 11-11-2019 Denies no information no information 11-11-2019 Never a Smoker Sex Assigned At Sex Assigned At no information M jennifer Functional Status Status Assessment Result Care Provider Facility Functional status Pasrachelle Opioid-induced MD FALLON JOHNSON [phone] Sedation Scale (POSS) (Work Phone: Hospital ([id number]) Awake and alert ) Mental Status Status Assessment Result Care Provider Facility Cognitive function Radha Opioid-induced MD FALLON JOHNSON [phone] Sedation Scale (POSS) (Work Phone: [facility] ([phone]) Awake and alert ) Encounters Encounter Normalized Encounter Encounter Diagnosis Care Provi gabby Organization Date Type 11-11-2019 Emergency department no information (no phone) [facility] [address] - patient visit Hospital (no phone) 11-11-2019 11-11-2019 Emergency department no information [facility] (no [facility] [address] patient visit phone) [facility] (no phone) NEGATED Patient encounter no information no name no or ganization name 04-30-2018 NEGATED Patient encounter no information no name no or ganization name 04-11-2018 03-23-2018 Patient encounter no information no name no or ganization name 12-10-2017 Patient encounter no information no name no or ganization name 07-12-2017 Patient encounter no information no name no or ganization name 09-29-2014 Patient encounter no information no name no or ganization name - 09-29-2014 Patient encounter no information no name no organizat ion name 11-10-2019 Patient encounter no information FALLON JOHNSON [facility] (no phone) 10-10-2019 Patient encounter no information (no phone) [facility] procedure [facility] (no phone) 08-30-2019 Patient encounter no information (no phone) [facility] procedure [facility] (no phone) 04-21-2019 Patient encounter no information no name no or ganization name procedure 02-18-2019 Patient encounter no information no name no or ganization name procedure 02-18-2019 Patient encounter no information no name no or ganization name procedure 02-07-2019 Patient encounter no information no name no or ganization name procedure 01-24-2019 Patient encounter no information no name no or ganization name procedure 10-04-2018 Patient encounter no information no name no or ganization name procedure 09-10-2018 Patient encounter no information no name no or ganization name procedure 08-09-2018 Patient encounter no information no name no or ganization name procedure 07-01-2018 Patient encounter no information no name no or ganization name procedure 04-30-2018 Patient encounter no information no name no or ganization name procedure 09-29-2014 Patient encounter no information no name no or ganization name procedure no information Pre-operative no name no organization name examination, unspecified Medical Equipment The data below is from unstructured sourcesNo Medical Equipment Information available Payers Normalized Payer Value Private Health Insurance no information ([id number]) Evaluation note Note Type Note Facility Evaluation No Assessments Information Available A scension note [facility] ([id number]) Summary Purpose eClinicalWorks SubmissioneClinicalWorks SubmissioneClinicalWorks SubmissioneClinicalWorks SubmissioneClinicalWorks SubmissioneClinicalWorks SubmissioneClinicalWorks SubmissioneClinicalWorks SubmissioneClinicalWorks SubmissioneClinicalWorks SubmissioneClinicalWorks SubmissioneClinicalWorks SubmissioneClinicalWorks SubmissioneClinicalWorks SubmissioneClinicalWorks SubmissioneClinicalWorks SubmissioneClinicalWorks SubmissioneClinicalWorks SubmissioneClinicalWorks SubmissioneClinicalWorks SubmissioneClinicalWorks SubmissioneClinicalWorks SubmissioneClinicalWorks Submission Advance Directives Directive Response Recor ded Date/Time Advance Directives No 10:08am Health Care Power of [employer] Applications Analyst No 10/04/15 10:08am Organ Donor No 10/04/15 10:08am Resuscitation Status Full Code 10/04/15 10:08am Directive Response Recor ded Date Advance Directives N 01/12 12:58pm Health Care Power of [employer] Applications Analyst N 02/06/13 12:58pm Organ Donor N 02/06/13 1 2:58pm Directive Response Recor ded Date/Time Advance Directives No 10:20am Health Care Power of [employer] Applications Analyst No 09/29/14 10:20am Organ Donor No 09/29/14 10:20am Resuscitation Status Full Code 09/29/14 10:20am Advance Directive Response Recorded Date/Time Advance Directives No 2019 3:05pm Health Care Power of [employer] Applications Analyst No November 11, 2019 3:05pm Organ Donor No November 11, 2019 3:05pm Resuscitation Status Full Code November 11, 2019 3:05pm Discharge Instructions No hospital discharge instructions.No hospital discharge instructions. Chief Complaint and Reason for Visit Chief Complaint Back Problems Reason for Visit [id number] Additional Source Comments This clinical document has been generated using [employer] software that has been certified by the Office of the National Coordinator for Health Information Technology (ONC 15.99.04.3023.Diam.31.00.0.658252) and the National Committee for Net Software Developer (NCQA, as an eMeasure certified technology). FOR RECORDS PERTAINING TO PATIENTS WHO ARE OR HAVE BEEN ENROLLED IN A CHEMICAL D EPENDENCY/SUBSTANCE ABUSE PROGRAM, SOME INFORMATION MAY BE OMITTED. This clinica l summary was aggregated from multiple sources. Caution should be exercised in using it in the provision of clinical care. This summary normalizes information from multiple sources, and as a consequence, information in this document may ma terially change the coding, format and clinical context of patient data. In nicolas tion, data may be omitted in some cases. CLINICAL DECISIONS SHOULD BE BASED ON T HE PRIMARY CLINICAL RECORDS. [employer] provides no warranty or guara ntee of the accuracy or completeness of information in this document.The followi ng information is based on time limited clinical information UNRECOGNIZED CONTENT PROVIDED BELOW FOR UNRECOGNIZED SECTION MEDICAL (GENERAL) HISTORY Type Description Date Medical History Hypertension Medical History GERD Medical History Bipolar Surgical History Hernia right ingual Surgical History Colonoscopy october 2014 Hospitalization History surgeries Hospitalization History [facility] de [facility] and vomitting 10/04/15 Type Description Date Medical History Hypertension Medical History GERD Medical History Bipolar Medical History Gastroesophageal ref lux disease without esophagitis Medical History Urinary hesitancy Medical History Posttraumatic stress disorder Surgical History Hernia right ingual Surgical History Colonoscopy october 2014 Hospitalization History surgeries Hospitalization History [facility] for de hydration and vomitting 10/04/15 Type Description Date Medical History Hypertension Medical History GERD Medical History Bipolar Medical History Gastroesophageal ref lux disease without esophagitis Medical History Urinary hesitancy Medical History Posttraumatic stress disorder Surgical History Hernia right ingual Surgical History Colonoscopy August 2014 Hospitalization History surgeries Hospitalization History [facility] de [facility] and vomitting 10/04/15 UNRECOGNIZED CONTENT PROVIDED BELOW FOR UNRECOGNIZED SECTION REASON FOR VISIT Morris 12/28/17vnaveed 01/25/2018 erick/u [place] low Back Painmaiking it hard to walk -- lacy vang 02/22/2018wanting blood work / annual check up KP age Lacy 03/21/2018vnaveed 05/17/2018vnaveed 05/29/2018vyvdonan 06/26/2018EMR -IatZEK-JvfWII-Ldzfaz back pain: Patient reports having back pain and back spasm s since Monday. Patient reports their pain started after they were standing fo r a long period of time. Patient reports they have been using a heating pad and taking Tylenol to help their pain.[place] 09/18/2018
--- OUTSIDE RECORDS SUMMARY | 2019-11-11 19:05 | XMS REPORT ---
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 12 Active 614396714 Problem Bipolar 2 disorder F31.81 Active 8 8089164 Problem PTSD (post-traumatic stress disorder) F43.10 Active 79930101 Problem Social anxiety disorder F40.10 Active 66593588 Problem Stage 3 chronic kidney disease N18.3 Active 086153997 Problem Attention deficit disorder F90.0 Act shalom 484511308 Problem Other chronic pain G89.29 Active 8 8359470 Problem Lumbago with sciatica, left side M54.42 Active 586511607 Problem Lumbago with sciatica, right side M54.41 Active [id number] Problem Pure hypercholesterolemia E78.00 Acti ve [id number] ALLERGIES No Information ENCOUNTERS Encounter Location Date Diagnosis [facility] [address] [facility] [id number] [address] [place] [phone] October, [facility] [address] [facility] [id number] [address] [place] [phone] Oct, [facility] [address] [facility] [id number] [address] [place] [phone] Oct, Chronic post-traumatic stres s disorder (PTSD) F43.12 [facility] [address] [facility] [id number] [address] [place] [phone] Oct, Attention deficit disorder F 90.0 [facility] [address] [facility] [id number] [address] [place] [phone] 09 Oct, 2019 Stage 3 chronic kidney disea se N18.3 [facility] [address] [facility] [id number] [address] [place] [id number] 09 Oct, 2019 Bipolar 2 disorder F31.81 ; Attention deficit disorder F90.0 ; Social anxiety disorder F40.10 and Chronic post-traumatic stress disorder (PTSD) F43.12 [facility] [address] [facility] [id number] [address] [place] [phone] Aug, Attention deficit disorder F 90.0 [facility] [address] [facility] [id number] [address] [place] [id number] 02 Sep, 2019 Stage 3 chronic kidney disea se N18.3 [facility] [address] [facility] [id number] [address] [place] [phone] 28 Aug, 2019 Hypertension I10 ; Hyperlipi demia E78.5 and Other chronic pain G89.29 [place] [address] [facility] [id number] [address] [place] [id number] 14 Aug, 2019 [facility] [address] [facility] [id number] [address] [place] [id number] 13 Aug, 2019 Attention deficit disorder F 90.0 [facility] [address] [facility] [id number] [address] [place] [phone] Jul, [place] [address] [facility] [id number] [address] [place] [id number] Jul, Bipolar 2 disorder F31.81 [facility] [address] [facility] [id number] [address] [place] [id number] Jul, Bipolar 2 disorder F31.81 ; Attention deficit disorder F90.0 ; Chronic post-traumatic stress disorder (PTSD) F43.12 and Social anxiety disorder F40.10 [facility] [address] [facility] [id number] [address] [place] [phone] Jun, Bipolar 2 disorder F31.81 [place] [address] [place] [id number] [address] [place] [phone] May, Bipolar 2 disorder F31.81 [facility] [address] [place] [id number] [address] [place] [id number] May, Bipolar 2 disorder F31.81 ; Attention deficit disorder F90.0 ; Social anxiety disorder F40.10 and PTSD (post-traumatic stress disorder) F43.10 [facility] [id number] [place] [id number] Apr, Bipolar 2 disorder F31.81 [facility] [address] [place] [id number] [address] [place] [phone] Apr, Encounter for immunization Z 23 [place] [address] [place] [id number] [place] [phone] Mar, Bipolar 2 disorder F31.81 [place] [address] [address] Jan, Bipolar 2 disorder F31.81 [facility] [address] [place] [id number] [address] [place] [phone] Jan, Lumbago with sciatica, left side M54.42 and Lumbago with sciatica, right side M54.41 [place] [address] [place] [id number] [address] [place] [phone] Jan, Bipolar 2 disorder F31.81 ; Attention deficit disorder F90.0 ; Social anxiety disorder F40.10 and Chronic post-traumatic stress disorder (PTSD) F43.12 [place] [address] [place] [phone] Dec, Hypertension I10 and Impacte d cerumen of left ear H61.22 [place] [address] [place] [id number] [address] [place] [id number] Dec, Bipolar 2 disorder F31.81 [place] [address] [place] [id number] [address] [place] [phone] Dec, [place] [address] [place] [address] Dec, Bipolar 2 disorder F31.81 [facility] [address] [place] [id number] [address] [place] [phone] Oct, Bipolar 2 disorder F31.81 [facility] [address] [facility] [id number] [address] [place] [phone] Oct, Bipolar 2 disorder F31.81 ; Attention deficit disorder F90.0 ; Social anxiety disorder F40.10 and Chronic post-traumatic stress disorder (PTSD) F43.12 [facility] [address] [facility] [id number] [address] [place] [id number] Aug, Lumbago with sciatica, left side M54.42 and Lumbago with sciatica, right side M54.41 [place] [address] [place] [id number] [address] [place] [address] Aug, Bipolar 2 disorder F31.81 [place] [address] [place] [id number] [address] [place] [phone] Aug, Bipolar 2 disorder F31.81 [place] [address] [place] [id number] [place] [address] Aug, Bipolar 2 disorder F31.81 ; Attention deficit disorder F90.0 ; Social anxiety disorder F40.10 and PTSD (post-traumatic stress disorder) F43.10 [facility] [address] [place] [id number] [address] [place] [phone] Jul, [facility] [address] [facility] [id number] [address] [place] [phone] Jun, Nasal congestion R09.81 ; Ac ping nonintractable headache, unspecified headache type R51 and Viral upper respiratory tract infection J06.9 [facility] [address] [facility] [id number] [address] [place] [phone] Jun, [place] [address] [place] [id number] [place] [phone] May, [facility] [address] [address] May, [facility] [address] [address] May, Bipolar 2 disorder F31.81 ; Social anxiety disorder F40.10 ; Chronic post-traumatic stress disorder (PTSD) F43.12 ; Attention deficit disorder F90.0 and Encounter for immunization Z23 [facility] [address] [address] Apr, [facility] [address] [address] Apr, Body aches R52 and Acute chely opharyngitis J00 [place] [address] [address] 24 Mar, 2018 Pure hypercholesterolemia E7 8.00 and Exertional chest pain R07.9 [place] [address] [address] Mar, Hyperlipidemia E78.5 ; Hyper tension I10 and Routine adult health maintenance Z00.00 [place] [address] [address] 20 Mar, 2018 Hypertension I10 ; Hyperlipi demia E78.5 ; Chest pain, exertional R07.9 and Routine adult health maintenance Z00.00 [place] [address] [address] 17 Mar, 2018 [place] [address] [address] Mar, Lumbago with sciatica, left side M54.42 and Lumbago with sciatica, right side M54.41 [place] [address] [address] Jan, [place] [address] [address] Dec, Bipolar 2 disorder F31.81 ; Social anxiety disorder F40.10 and Chronic post-traumatic stress disorder (PTSD) F43.12 [facility] [address] [id number] [address] [place] [id number] Dec, [facility] [address] [id number] [address] [place] [id number] Dec, [facility] [address] [id number] [address] [place] [phone] Dec, Upper respiratory tract infe ction, unspecified type J06.9 [facility] [address] [id number] [address] [place] [phone] October, [facility] [address] [id number] [address] [place] [id number] Oct, Bipolar 2 disorder F31.81 ; Attention deficit disorder F90.0 ; Social anxiety disorder F40.10 and Chronic post-traumatic stress disorder (PTSD) F43.12 [facility] [address] [id number] [address] [place] [phone] Oct, [facility] [address] [id number] [address] [place] [phone] Oct, [facility] [address] [id number] [address] [place] [phone] Aug, [facility] [address] [facility] [id number] [address] [place] [phone] Aug, [facility] [address] [id number] [address] [place] [id number] Jul, Strain of lumbar region, ini tial encounter S39.012A [facility] [address] [id number] [address] [place] [id number] Jul, Lumbago with sciatica, left side M54.42 and Lumbago with sciatica, right side M54.41 [facility] [address] [id number] [address] [place] [id number] Jul, Low back pain M54.5 and Othe r chronic pain G89.29 [facility] [address] [facility] [id number] [address] [place] [id number] Jul, [facility] [address] [facility] [id number] [address] [place] [id number] Jul, Bipolar 2 disorder F31.81 ; Attention deficit disorder F90.0 and Social anxiety disorder F40.10 [facility] [address] [place] [id number] [place] [phone] Jun, [facility] [address] [place] [id number] [place] [phone] May, [facility] [address] [place] [id number] [place] [phone] Apr, Bipolar 2 disorder F31.81 ; Attention deficit disorder F90.0 ; Social anxiety disorder F40.10 and Chronic post-traumatic stress disorder (PTSD) F43.12 [facility] [address] [address] Apr, [facility] [address] [place] [id number] [place] [phone] Apr, Hyperlipidemia E78.5 [facility] [address] [facility] [id number] [address] [place] [phone] Mar, Encounter for immunization Z 23 and Tinea cruris B35.6 [facility] [address] [facility] [id number] [address] [place] [phone] Mar, [facility] [address] [facility] [id number] [address] [place] [phone] Jan, [facility] [address] [facility] [id number] [address] [place] [phone] Dec, [facility] [address] [facility] [id number] [address] [place] [phone] Dec, [place] [address] [id number] [address] [place] [phone] Dec, Bipolar 2 disorder F31.81 ; Social anxiety disorder F40.10 and Attention deficit disorder F90.0 [facility] [address] [id number] [address] [place] [id number] Dec, [facility] [address] [id number] [address] [place] [phone] Dec, Hypertension I10 [facility] [address] [id number] [address] [place] [id number] October, [facility] [address] [id number] [address] [place] [phone] Oct, [facility] [address] [facility] [id number] [address] [place] [phone] Oct, Nasal congestion R09.81 [facility] [address] [facility] [id number] [address] [place] [phone] Oct, Social anxiety disorder F40. 10 ; Bipolar 2 disorder F31.81 and Attention deficit disorder F90.0 [facility] [address] [facility] [id number] [address] [place] [phone] Aug, [facility] [address] [facility] [id number] [address] [place] [phone] Aug, [facility] [address] [facility] [id number] [address] [place] [phone] Jul, Nasal congestion R09.81 [facility] [address] [facility] [id number] [address] [place] [id number] Jul, [facility] [address] [facility] [id number] [address] [place] [phone] Jun, Bipolar 2 disorder F31.81 ; Attention deficit disorder F90.0 ; Social anxiety disorder F40.10 and Chronic post-traumatic stress disorder (PTSD) F43.12 [facility] [address] [facility] [id number] [address] [place] [phone] Jun, [facility] [address] [facility] [id number] [address] [place] [phone] May, [facility] [address] [facility] [id number] [address] [place] [phone] Apr, Attention deficit disorder F 90.0 [facility] [address] [place] [id number] [address] [place] [phone] Apr, Urinary hesitancy R39.11 ; H yperlipidemia E78.5 and Encounter for immunization Z23 [facility] [address] [facility] [id number] [address] [place] [phone] Apr, [facility] [address] [facility] [id number] [address] [place] [id number] Mar, [facility] [address] [place] [id number] [place] [phone] Jan, [facility] [address] [place] [id number] [address] [place] [phone] Dec, [facility] [address] [facility] [id number] [address] [place] [id number] Dec, [facility] [address] [place] [id number] [address] [place] [phone] Dec, Bipolar 2 disorder F31.81 ; Attention deficit disorder F90.0 ; Posttraumatic stress disorder F43.10 and Social anxiety disorder F40.10 [facility] [address] [facility] [id number] [address] [place] [id number] Dec, Scabies exposure Z20.89 and Scabies B86 [facility] [address] [place] [id number] [address] [place] [phone] Dec, [facility] [address] [place] [id number] [address] [place] [id number] Dec, Hypertension I10 and Gastroe sophageal reflux disease without esophagitis K21.9 [facility] [address] [place] [id number] [address] [place] [phone] October, [facility] [address] [facility] [id number] [address] [place] [phone] October, [facility] [address] [facility] [id number] [address] [place] [phone] Oct, Bipolar 2 disorder F31.81 ; Posttraumatic stress disorder F43.10 ; Attention deficit disorder F90.0 and Social anxiety disorder F40.10 [facility] [address] [facility] [id number] [address] [place] [phone] Oct, [facility] [address] [facility] [id number] [address] [place] [phone] Oct, Hypertension I10 and Nasal c ongestion R09.81 [facility] [address] [facility] [id number] [address] [place] [phone] Aug, [facility] [address] [facility] [id number] [address] [place] [phone] Aug, [facility] [address] [facility] [id number] [address] [place] [phone] Aug, [facility] [address] [facility] [id number] [address] [place] [phone] Aug, [facility] [address] [facility] [id number] [address] [place] [phone] Aug, [facility] [address] [facility] [id number] [address] [place] [phone] Aug, Hypertension I10 and Tremor R25.1 [facility] [address] [facility] [id number] [address] [place] [phone] Aug, Bipolar 2 disorder F31.81 ; Posttraumatic stress disorder F43.10 ; Attention deficit disorder F90.0 and Social anxiety disorder F40.10 [facility] [address] [facility] [id number] [address] [place] [id number] Jul, [facility] [address] [id number] [address] [place] [phone] Jul, Hyperlipidemia E78.5 [facility] [address] [facility] [id number] [address] [place] [phone] Jul, Hypertension I10 and Hyperli pidemia E78.5 [facility] [address] [id number] [address] [place] [phone] Jun, Bipolar 2 disorder F31.81 ; Posttraumatic stress disorder F43.10 ; Attention deficit disorder F90.0 and Social anxiety disorder F40.10 [facility] [address] [id number] [address] [place] [phone] May, [facility] [address] [facility] [id number] [address] [place] [id number] May, [facility] [address] [facility] [id number] [address] [place] [phone] Apr, Bipolar 2 disorder F31.81 ; Posttraumatic stress disorder F43.10 ; Attention deficit disorder F90.0 and Social phobia F40.10 [facility] [address] [id number] [address] [place] [id number] Apr, Bipolar 2 disorder F31.81 ; Posttraumatic stress disorder F43.10 and Attention deficit disorder F90.0 [facility] [address] [facility] [id number] [address] [place] [phone] Apr, [facility] [address] [id number] [address] [place] [phone] Apr, [facility] [address] [facility] [id number] [address] [place] [phone] Apr, [facility] [address] [id number] [address] [place] [phone] Mar, [facility] [address] [id number] [address] [place] [phone] Mar, [facility] [address] [facility] [id number] [address] [place] [phone] Jan, [facility] [address] [facility] [id number] [address] [place] [phone] Jan, [facility] [address] [facility] [id number] [address] [place] [phone] Jan, Bipolar II disorder 296.89 ; Posttraumatic stress disorder 309.81 ; Social phobia 300.23 and Attention deficit disorder of childhood without mention of hyperactivity 314.00 [facility] [address] [facility] [id number] [address] [place] [phone] Jan, Other and unspecified bipola r disorders 296.89 ; Posttraumatic stress disorder 309.81 and Attention deficit disorder of childhood without mention of hyperactivity 314.00 [facility] [address] [facility] [id number] [address] [place] [phone] Jan, [facility] [address] [facility] [id number] [address] [place] [phone] Dec, Other and unspecified bipola r disorders 296.89 ; Posttraumatic stress disorder 309.81 and Attention deficit disorder of childhood without mention of hyperactivity 314.00 [facility] [address] [facility] [id number] [address] [place] [phone] Dec, Migraines 346.90 [facility] [address] [facility] [id number] [address] [place] [phone] Dec, Other and unspecified bipola r disorders 296.89 ; Posttraumatic stress disorder 309.81 and Attention deficit disorder of childhood without mention of hyperactivity 314.00 [facility] [address] [facility] [id number] [address] [place] [phone] Dec, [facility] [address] [facility] [id number] [address] [place] [phone] Dec, Bipolar II disorder 296.89 ; Social phobia 300.23 ; Posttraumatic stress disorder 309.81 and Attention deficit disorder of childhood without mention of hyperactivity 314.00 [facility] [address] [facility] [id number] [address] [place] [phone] Dec, Other and unspecified bipola r disorders 296.89 ; Posttraumatic stress disorder 309.81 and Attention deficit disorder of childhood without mention of hyperactivity 314.00 [facility] [address] [id number] [address] [place] [phone] October, Other and unspecified bipola r disorders 296.89 ; Posttraumatic stress disorder 309.81 and Attention deficit disorder of childhood without mention of hyperactivity 314.00 [facility] [address] [id number] [address] [place] [phone] October, [facility] [address] [id number] [address] [place] [id number] October, [facility] [address] [id number] [address] [place] [phone] October, [facility] [address] [id number] [address] [place] [phone] October, [facility] [address] [facility] [id number] [address] [place] [id number] October, Attention deficit disorder o f childhood without mention of hyperactivity 314.00 ; Posttraumatic stress disorder 309.81 ; Social phobia 300.23 and Other and unspecified bipolar disorders 296.89 [facility] [address] [id number] [address] [place] [id number] Oct, [facility] [address] [id number] [address] [place] [id number] Oct, [facility] [address] [id number] [address] [place] [id number] Aug, [facility] [address] [id number] [address] [place] [id number] Aug, [facility] [address] [id number] [address] [place] [id number] Aug, [facility] [address] [id number] [address] [place] [id number] Aug, [facility] [address] [id number] [address] [place] [id number] 17 Aug, 2014 [facility] [address] [id number] [facility] [place] [address] 17 Aug, 2014 [facility] [address] [id number] [facility] [place] [address] 17 Aug, 2014 [facility] [address] [id number] [facility] [place] [address] 17 Aug, 2014 [facility] [address] [id number] [address] [place] [address], [place] [address] 17 Aug, 2014 [facility] [address] [id number] [address] [place] [address], [place] [address] 17 Aug, 2014 [facility] [address] [id number] [address] [place] [address], [place] [address] 13 Aug, 2014 [facility] [address] [id number] [address] [place] [address], [place] [address] 13 Aug, 2014 [facility] [address] [id number] [address] [place] [address], [place] [address] 12 Aug, 2014 [facility] [address] [id number] [address] [place] [address], [place] [address] Aug, [facility] [address] [id number] [address] [place] [address], [place] [address] Aug, [facility] [address] [id number] [address] [place] [address], [place] [address] Aug, [facility] [address] [id number] [address] [place] [address], [place] [address] Aug, [facility] [address] [id number] [address] [place] [address], [place] [address] Aug, [facility] [address] [id number] [address] [place] [address], [place] [address] Aug, [facility] [address] [id number] [address] [place] [address], [place] [address] Aug, [facility] [address] [id number] [address] [place] [address], [place] [address] Aug, [facility] [address] [id number] [address] [place] [address], [place] [address] Aug, [facility] [address] [id number] [address] [place] [address], [place] [address] Aug, [facility] [address] [id number] [address] [place] [address], [place] [address] Aug, [facility] [address] [id number] [address] [place] [address], [place] [address] Aug, [facility] [address] [id number] [address] [place] [address], [place] [address] Aug, [facility] [address] [id number] [address] [place] [address], [place] [address] Aug, [facility] [address] [id number] [address] [place] [address], [place] [address] Aug, [facility] [address] [id number] [address] [place] [address], [place] [address] Aug, [facility] [address] [id number] [address] [place] [address], [place] [address] Aug, [facility] [address] [id number] [address] [place] [address], [place] [address] Jul, [facility] [address] [id number] [address] [place] [address], [place] [address] Jul, [facility] [address] [id number] [address] [place] [address], [place] [address] Jul, [facility] [address] [id number] [address] [place] [address], [place] [address] Jul, [facility] [address] [id number] [address] [place] [address], [place] [address] Jul, [facility] [address] [id number] [address] [place] [address], [place] [address] Jul, [facility] [address] [id number] [address] [place] [phone] Jul, [facility] [address] [id number] [address] [place] [phone] Jul, [facility] [address] [id number] [address] [place] [id number] Jun, [facility] [address] [id number] [address] [place] [id number] Jun, [facility] [address] [id number] [address] [place] [phone] Jun, [facility] [address] [id number] [address] [place] [id number] Jun, [facility] [address] [id number] [address] [place] [id number] May, [facility] [address] [id number] [address] [place] [phone] May, [facility] [address] [id number] [address] [place] [phone] May, [facility] [address] [id number] [address] [place] [id number] May, [facility] [address] [id number] [address] [place] [id number] May, [facility] [address] [id number] [address] [place] [id number] Apr, [facility] [address] [id number] [address] [place] [id number] Apr, IMMUNIZATIONS No Known Immunizations SOCIAL HISTORY Never Assessed REASON FOR VISIT PLAN OF CARE VITAL SIGNS MEDICATIONS Unknown Medications RESULTS No Results PROCEDURES Procedure Date Ordered Result Body Site PSYCH DIAGNOSTIC EVALUATION Jun 20, 2014 INSTRUCTIONS MEDICATIONS ADMINISTERED No Known Medications MEDICAL (GENERAL) HISTORY Type Description Date Medical History Hypertension Medical History GERD Medical History Bipolar Medical History Gastroesophageal reflux disease without esophagitis Medical History Urinary hesitancy Medical History Posttraumatic stress disorder Surgical History Hernia right ingual Surgical History Colonoscopy August 2014 Hospitalization History surgeries Hospitalization History [facility] and [facility] 10/04/15
--- OUTSIDE RECORDS SUMMARY | 2019-11-11 19:06 | XMS REPORT ---
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 12 Active 223444146 Problem Other chronic pain G89.29 Active 8 6155182 Problem Lumbago with sciatica, left side M54.42 Active 075781921 Problem Lumbago with sciatica, right side M54.41 Active [id number] ALLERGIES No Information ENCOUNTERS Encounter Location Date Diagnosis [facility] [address] [facility] [id number] [address] [place] [phone] May, [facility] [address] [place] [id number] [address] [place] [phone] Jan, Bipolar 2 disorder F31.81 [facility] [address] [facility] [id number] [address] [place] [phone] Jan, Lumbago with sciatica, left side M54.42 and Lumbago with sciatica, right side M54.41 [facility] [address] [facility] [id number] [address] [place] [phone] 08 Jan, 2019 Bipolar 2 disorder F31.81 ; Attention deficit disorder F90.0 ; Social anxiety disorder F40.10 and Chronic post-traumatic stress disorder (PTSD) F43.12 [facility] [address] [facility] [id number] [address] [place] [phone] Dec, Hypertension I10 and Impacte d cerumen of left ear H61.22 [facility] [address] [facility] [id number] [address] [place] [phone] Dec, Bipolar 2 disorder F31.81 [facility] [address] [facility] [id number] [address] [place] [phone] Dec, [place] [address] [facility] [id number] [address] [place] [phone] Dec, Bipolar 2 disorder F31.81 [place] [address] [place] [id number] [address] [place] [phone] Oct, Bipolar 2 disorder F31.81 [place] [address] [place] [id number] [address] [place] [phone] Oct, Bipolar 2 disorder F31.81 ; Attention deficit disorder F90.0 ; Social anxiety disorder F40.10 and Chronic post-traumatic stress disorder (PTSD) F43.12 [facility] [address] [place] [id number] [address] [place] [phone] Aug, Lumbago with sciatica, left side M54.42 and Lumbago with sciatica, right side M54.41 [facility] [address] [place] [id number] [address] [place] [phone] Aug, Bipolar 2 disorder F31.81 [facility] [address] [facility] [id number] [address] [place] [phone] Aug, Bipolar 2 disorder F31.81 [place] [address] [place] [id number] [address] [place] [phone] Aug, Bipolar 2 disorder F31.81 ; Attention deficit disorder F90.0 ; Social anxiety disorder F40.10 and PTSD (post-traumatic stress disorder) F43.10 [facility] [address] [place] [id number] [address] [place] [phone] Jul, [facility] [address] [place] [id number] [place] [phone] Jun, Nasal congestion R09.81 ; Ac ambler nonintractable headache, unspecified headache type R51 and Viral upper respiratory tract infection J06.9 [facility] [address] [id number] Jun, [facility] [address] [id number] May, [place] [address] [phone] May, [facility] [address] [address] May, Bipolar 2 disorder F31.81 ; Social anxiety disorder F40.10 ; Chronic post-traumatic stress disorder (PTSD) F43.12 ; Attention deficit disorder F90.0 and Encounter for immunization Z23 [facility] [address] [id number] 12 Apr, 2018 [facility] [address] [place] [id number] [place] [phone] Apr, Body aches R52 and Acute chely opharyngitis J00 [place] [address] [id number] 24 Mar, 2018 Pure hypercholesterolemia E7 8.00 and Exertional chest pain R07.9 [facility] [address] [place] [id number] [address] [place] [id number] 21 Mar, 2018 Hyperlipidemia E78.5 ; Hyper tension I10 and Routine adult health maintenance Z00.00 [facility] [address] [place] [id number] [place] [phone] 20 Mar, 2018 Hypertension I10 ; Hyperlipi demia E78.5 ; Chest pain, exertional R07.9 and Routine adult health maintenance Z00.00 [place] [address] [id number] [address] [place] [phone] Mar, [facility] [address] [id number] [address] [place] [phone] Mar, Lumbago with sciatica, left side M54.42 and Lumbago with sciatica, right side M54.41 [facility] [address] [id number] [address] [place] [id number] Jan, [facility] [address] [id number] [address] [place] [phone] Dec, Bipolar 2 disorder F31.81 ; Social anxiety disorder F40.10 and Chronic post-traumatic stress disorder (PTSD) F43.12 [facility] [address] [facility] [id number] [address] [place] [phone] Dec, [facility] [address] [facility] [id number] [address] [place] [phone] Dec, [facility] [address] [id number] [address] [place] [id number] Dec, Upper respiratory tract infe ction, unspecified type J06.9 [facility] [address] [facility] [id number] [address] [place] [phone] October, [facility] [address] [facility] [id number] [address] [place] [phone] Oct, Bipolar 2 disorder F31.81 ; Attention deficit disorder F90.0 ; Social anxiety disorder F40.10 and Chronic post-traumatic stress disorder (PTSD) F43.12 [facility] [address] [id number] [address] [place] [id number] Oct, [facility] [address] [facility] [id number] [address] [place] [phone] Oct, [facility] [address] [facility] [id number] [address] [place] [phone] Aug, [facility] [address] [id number] [address] [place] [phone] 05 Aug, 2017 [facility] [address] [id number] [address] [place] [phone] Jul, Strain of lumbar region, ini tial encounter S39.012A [facility] [address] [id number] [address] [place] [phone] Jul, Lumbago with sciatica, left side M54.42 and Lumbago with sciatica, right side M54.41 [facility] [address] [id number] [address] [place] [phone] Jul, Low back pain M54.5 and Othe r chronic pain G89.29 [facility] [address] [facility] [id number] [address] [place] [phone] Jul, [facility] [address] [facility] [id number] [address] [place] [phone] Jul, Bipolar 2 disorder F31.81 ; Attention deficit disorder F90.0 and Social anxiety disorder F40.10 [place] [address] [id number] [address] [place] [phone] Jun, [facility] [address] [facility] [id number] [address] [place] [phone] May, [facility] [address] [facility] [id number] [address] [place] [phone] Apr, Bipolar 2 disorder F31.81 ; Attention deficit disorder F90.0 ; Social anxiety disorder F40.10 and Chronic post-traumatic stress disorder (PTSD) F43.12 [place] [address] [facility] [id number] [address] [place] [phone] Apr, [place] [address] [facility] [id number] [address] [place] [phone] 12 Apr, 2017 Hyperlipidemia E78.5 [facility] [address] [facility] [id number] [address] [place] [phone] Mar, Encounter for immunization Z 23 and Tinea cruris B35.6 [facility] [address] [facility] [id number] [address] [place] [phone] Mar, [facility] [address] [facility] [id number] [address] [place] [phone] Jan, [facility] [address] [facility] [id number] [address] [place] [phone] Dec, [facility] [address] [facility] [id number] [address] [place] [phone] Dec, [facility] [address] [facility] [id number] [address] [place] [phone] Dec, Bipolar 2 disorder F31.81 ; Social anxiety disorder F40.10 and Attention deficit disorder F90.0 [facility] [address] [place] [id number] [address] [place] [phone] Dec, [facility] [address] [place] [id number] [address] [place] [phone] Dec, Hypertension I10 [facility] [address] [facility] [id number] [address] [place] [phone] October, [facility] [address] [place] [id number] [address] [place] [phone] Oct, [facility] [address] [place] [id number] [address] [place] [phone] Oct, Nasal congestion R09.81 [facility] [address] [facility] [id number] [address] [place] [id number] Oct, Social anxiety disorder F40. 10 ; Bipolar 2 disorder F31.81 and Attention deficit disorder F90.0 [facility] [address] [facility] [id number] [address] [place] [phone] Aug, [facility] [address] [place] [id number] [address] [place] [phone] Aug, [facility] [address] [place] [id number] [address] [place] [phone] Jul, Nasal congestion R09.81 [facility] [address] [facility] [id number] [address] [place] [phone] Jul, [facility] [address] [facility] [id number] [address] [place] [phone] Jun, Bipolar 2 disorder F31.81 ; Attention deficit disorder F90.0 ; Social anxiety disorder F40.10 and Chronic post-traumatic stress disorder (PTSD) F43.12 [facility] [address] [facility] [id number] [address] [place] [phone] Jun, [facility] [address] [place] [id number] [place] [phone] May, [facility] [address] [place] [id number] [place] [phone] Apr, Attention deficit disorder F 90.0 [facility] [address] [id number] Apr, Urinary hesitancy R39.11 ; H yperlipidemia E78.5 and Encounter for immunization Z23 [facility] [address] [place] [id number] [address] [place] [phone] Apr, [facility] [address] [place] [id number] [address] [place] [phone] Mar, [facility] [address] [facility] [id number] [address] [place] [phone] Jan, [facility] [address] [place] [id number] [address] [place] [id number] Dec, [facility] [address] [place] [id number] [address] [place] [phone] Dec, [facility] [address] [facility] [id number] [address] [place] [phone] Dec, Bipolar 2 disorder F31.81 ; Attention deficit disorder F90.0 ; Posttraumatic stress disorder F43.10 and Social anxiety disorder F40.10 [facility] [address] [facility] [id number] [address] [place] [phone] 27 Dec, 2015 Scabies exposure Z20.89 and Scabies B86 [facility] [address] [facility] [id number] [address] [place] [phone] 24 Dec, 2015 [facility] [address] [facility] [id number] [address] [place] [phone] 16 Dec, 2015 Hypertension I10 and Gastroe sophageal reflux disease without esophagitis K21.9 [facility] [address] [facility] [id number] [address] [place] [phone] October, [facility] [address] [facility] [id number] [address] [place] [phone] October, [facility] [address] [facility] [id number] [address] [place] [phone] 14 Oct, 2015 Bipolar 2 disorder F31.81 ; Posttraumatic stress disorder F43.10 ; Attention deficit disorder F90.0 and Social anxiety disorder F40.10 [facility] [address] [facility] [id number] [address] [place] [phone] Oct, [facility] [address] [facility] [id number] [address] [place] [phone] Oct, Hypertension I10 and Nasal c ongestion R09.81 [facility] [address] [facility] [id number] [address] [place] [phone] Aug, [facility] [address] [facility] [id number] [address] [place] [phone] Aug, [facility] [address] [facility] [id number] [address] [place] [phone] Aug, [facility] [address] [facility] [id number] [address] [place] [phone] 26 Aug, 2015 [facility] [address] [place] [id number] [address] [place] [id number] 15 Aug, 2015 [facility] [address] [place] [id number] [address] [place] [phone] Aug, Hypertension I10 and Tremor R25.1 [facility] [address] [place] [id number] [place] [address] 04 Aug, 2015 Bipolar 2 disorder F31.81 ; Posttraumatic stress disorder F43.10 ; Attention deficit disorder F90.0 and Social anxiety disorder F40.10 [place] [address] [address] Jul, [facility] [address] [address] Jul, Hyperlipidemia E78.5 [place] [address] [address] Jul, Hypertension I10 and Hyperli pidemia E78.5 [place] [address] [address] Jun, Bipolar 2 disorder F31.81 ; Posttraumatic stress disorder F43.10 ; Attention deficit disorder F90.0 and Social anxiety disorder F40.10 [place] [address] [address] May, [place] [address] [address] May, [facility] [address] [address] Apr, Bipolar 2 disorder F31.81 ; Posttraumatic stress disorder F43.10 ; Attention deficit disorder F90.0 and Social phobia F40.10 [place] [address] [address] Apr, Bipolar 2 disorder F31.81 ; Posttraumatic stress disorder F43.10 and Attention deficit disorder F90.0 [place] [address] [address] Apr, [facility] [address] [id number] [address] [place] [phone] Apr, [facility] [address] [id number] [address] [place] [phone] Apr, [facility] [address] [id number] [address] [place] [phone] Mar, [facility] [address] [id number] [address] [place] [phone] Mar, [facility] [address] [id number] [address] [place] [phone] Jan, [facility] [address] [id number] [address] [place] [phone] Jan, [facility] [address] [facility] [id number] [address] [place] [phone] Jan, Bipolar II disorder 296.89 ; Posttraumatic stress disorder 309.81 ; Social phobia 300.23 and Attention deficit disorder of childhood without mention of hyperactivity 314.00 [facility] [address] [facility] [id number] [address] [place] [phone] Jan, Other and unspecified bipola r disorders 296.89 ; Posttraumatic stress disorder 309.81 and Attention deficit disorder of childhood without mention of hyperactivity 314.00 [facility] [address] [facility] [id number] [address] [place] [phone] Jan, [facility] [address] [facility] [id number] [address] [place] [phone] Dec, Other and unspecified bipola r disorders 296.89 ; Posttraumatic stress disorder 309.81 and Attention deficit disorder of childhood without mention of hyperactivity 314.00 [facility] [address] [facility] [id number] [address] [place] [phone] Dec, Migraines 346.90 [facility] [address] [facility] [id number] [address] [place] [phone] Dec, Other and unspecified bipola r disorders 296.89 ; Posttraumatic stress disorder 309.81 and Attention deficit disorder of childhood without mention of hyperactivity 314.00 [facility] [address] [id number] [address] [place] [phone] Dec, [facility] [address] [facility] [id number] [address] [place] [address] Dec, Bipolar II disorder 296.89 ; Social phobia 300.23 ; Posttraumatic stress disorder 309.81 and Attention deficit disorder of childhood without mention of hyperactivity 314.00 [facility] [address] [facility] [id number] [address] [place] [phone] Dec, Other and unspecified bipola r disorders 296.89 ; Posttraumatic stress disorder 309.81 and Attention deficit disorder of childhood without mention of hyperactivity 314.00 [facility] [address] [facility] [id number] [address] [place] [phone] October, Other and unspecified bipola r disorders 296.89 ; Posttraumatic stress disorder 309.81 and Attention deficit disorder of childhood without mention of hyperactivity 314.00 [facility] [address] [facility] [id number] [address] [place] [phone] October, [facility] [address] [facility] [id number] [address] [place] [phone] October, [facility] [address] [facility] [id number] [address] [place] [phone] October, [facility] [address] [facility] [id number] [address] [place] [phone] October, [facility] [address] [facility] [id number] [address] [place] [phone] October, Attention deficit disorder o f childhood without mention of hyperactivity 314.00 ; Posttraumatic stress disorder 309.81 ; Social phobia 300.23 and Other and unspecified bipolar disorders 296.89 [facility] [address] [facility] [id number] [address] [place] [phone] Oct, [facility] [address] [facility] [id number] [address] [place] [phone] Oct, [facility] [address] [id number] [facility] [place] [address] 26 Aug, 2014 [facility] [address] [id number] [facility] [place] [address] 26 Aug, 2014 [facility] [address] [id number] [facility] [place] [address] 24 Aug, 2014 [facility] [address] [id number] [address] [place] [address], [place] [id number] 24 Aug, 2014 [facility] [address] [id number] [facility] [place] [address] 17 Aug, 2014 [facility] [address] [id number] [address] [place] [address], [place] [id number] 17 Aug, 2014 [facility] [address] [id number] [address] [place] [address], [place] [id number] 17 Aug, 2014 [facility] [address] [id number] [address] [place] [address], [place] [id number] 17 Aug, 2014 [facility] [address] [id number] [address] [place] [address], [place] [id number] 17 Aug, 2014 [facility] [address] [id number] [address] [place] [address], [place] [id number] 17 Aug, 2014 [facility] [address] [id number] [address] [place] [address], [place] [id number] 13 Aug, 2014 [facility] [address] [id number] [address] [place] [address], [place] [id number] 13 Aug, 2014 [facility] [facility] [address] [id number] [address] [place] [address], [place] [id number] 12 Aug, 2014 [facility] [address] [id number] [address] [place] [address], [place] [id number] 12 Aug, 2014 [facility] [address] [id number] [address] [place] [address], [place] [id number] 12 Aug, 2014 [facility] [address] [id number] [address] [address] Aug, [facility] [address] [id number] [address] [place] [address], [place] [id number] Aug, [facility] [address] [id number] [address] [place] [address], [place] [id number] Aug, [facility] [address] [id number] [address] [place] [address], [place] [id number] Aug, [facility] [address] [id number] [address] [place] [address], [place] [id number] Aug, [facility] [address] [id number] [address] [place] [address], [place] [id number] Aug, [facility] [address] [id number] [address] [place] [address], [place] [id number] Aug, [facility] [address] [id number] [address] [place] [address], [place] [id number] Aug, [facility] [address] [id number] [address] [place] [id number] Aug, [facility] [address] [id number] [address] [place] [address], [place] [id number] Aug, [facility] [address] [id number] [address] [place] [address], [place] [id number] Aug, [facility] [address] [id number] [address] [place] [address], [place] [id number] Aug, [facility] [address] [id number] [address] [place] [id number] Aug, [facility] [address] [id number] [address] [place] [address], [place] [id number] Aug, [facility] [address] [id number] [address] [place] [address], [place] [id number] Aug, [facility] [address] [id number] [address] [place] [address], [place] [id number] Jul, [facility] [address] [id number] [address] [place] [address], [place] [id number] Jul, [facility] [address] [id number] [address] [place] [address], [place] [id number] Jul, [facility] [address] [id number] [address] [place] [address], [place] [id number] Jul, [facility] [address] [id number] [address] [place] [address], [place] [id number] Jul, [facility] [address] [id number] [address] [place] [address], [place] [id number] Jul, [facility] [address] [id number] [address] [place] [address], [place] [id number] Jul, [facility] [address] [id number] [address] [place] [address], [place] [id number] Jul, [facility] [address] [id number] [address] [place] [address], [place] [id number] Jun, [facility] [address] [id number] [address] [place] [address], [place] [id number] Jun, [facility] [address] [id number] [address] [place] [address], [place] [id number] Jun, [facility] [address] [id number] [address] [place] [address], [place] [id number] Jun, [facility] [address] [id number] [address] [place] [address], [place] [id number] May, [facility] [address] [id number] [address] [place] [address], [place] [id number] May, [facility] [address] [id number] [address] [place] [address], [place] [address] May, [facility] [address] [id number] [address] [place] [address], [place] [id number] May, [facility] [address] [id number] [address] [place] [address], [place] [id number] May, [facility] [address] [facility] [id number] [address] [place] [id number] Apr, [facility] [address] [facility] [id number] [address] [place] [id number] Apr, IMMUNIZATIONS No Known Immunizations SOCIAL HISTORY Never Assessed REASON FOR VISIT PLAN OF CARE VITAL SIGNS MEDICATIONS Unknown Medications RESULTS No Results PROCEDURES No Known procedures INSTRUCTIONS MEDICATIONS ADMINISTERED No Known Medications MEDICAL (GENERAL) HISTORY Type Description Date Medical History Hypertension Medical History GERD Medical History Bipolar Medical History Gastroesophageal reflux disease without esophagitis Medical History Urinary hesitancy Medical History Posttraumatic stress disorder Surgical History Hernia right ingual Surgical History Colonoscopy August 2014 Hospitalization History surgeries Hospitalization History ER for dehydration and vomitting 10/04/15
--- OUTSIDE RECORDS SUMMARY | 2019-11-11 19:06 | XMS REPORT ---
Author Author [place] [facility] Address [address] [place] [address] Care Team Providers Care Combustion Analyst Name Role Phone GUILLERMO MCCORD Unavailable PROBLEMS Type Condition ICD9-CM Code DYC26-DF Code Onset Dates Condition S tatus SNOMED Code Problem Social anxiety disorder F40.10 Active 77490967 Problem Hyperlipidemia E78.5 Active 72274 004 Problem Hypertension I10 Active 8173484 3 Problem Pure hypercholesterolemia E78.00 Acti ve 120091203 Problem Attention deficit disorder F90.0 Act shalom 519869681 Problem PTSD (post-traumatic stress disorder) F43.10 Active 22838729 Problem Bipolar 2 disorder F31.81 Active 8 2389201 Problem Chronic post-traumatic stress disorder (PTSD) F43. 12 Active 055019239 Problem Other chronic pain G89.29 Active 8 0259451 Problem Lumbago with sciatica, left side M54.42 Active 993003342 Problem Lumbago with sciatica, right side M54.41 Active [id number] ALLERGIES No Information ENCOUNTERS Encounter Location Date Diagnosis [facility] [address] [id number] [address] [place] [phone] May, [facility] [address] [id number] [address] [place] [address] Jan, Bipolar 2 disorder F31.81 ; Attention deficit disorder F90.0 ; Social anxiety disorder F40.10 and Chronic post-traumatic stress disorder (PTSD) F43.12 [facility] [address] [id number] [address] [place] [address] Dec, Hypertension I10 and Impacte d cerumen of left ear H61.22 [facility] [address] [id number] [address] [place] [address] Dec, Bipolar [address] [facility] [address] [facility] [id number] [address] [place] [address] Dec, [facility] [address] [facility] [id number] [address] [place] [address] Dec, Bipolar [address] [facility] [address] [facility] [id number] [address] [place] [address] Oct, Bipolar [address] [facility] [address] [facility] [id number] [address] [place] [address] Oct, Bipolar 2 disorder F31.81 ; Attention deficit disorder F90.0 ; Social anxiety disorder F40.10 and Chronic post-traumatic stress disorder (PTSD) F43.12 [facility] [address] [facility] [id number] [address] [place] [address] Aug, Lumbago with sciatica, left side M54.42 and Lumbago with sciatica, right side M54.41 [facility] [address] [facility] [id number] [address] [place] [address] Aug, Bipolar [address] [facility] [address] [facility] [id number] [address] [place] [address] Aug, Bipolar [address] [facility] [address] [facility] [id number] [address] [place] [address] Aug, Bipolar 2 disorder F31.81 ; Attention deficit disorder F90.0 ; Social anxiety disorder F40.10 and PTSD (post-traumatic stress disorder) F43.10 [facility] [address] [facility] [id number] [address] [place] [address] Jul, [facility] [address] [facility] [id number] [address] [place] [address] Jun, Nasal congestion R09.81 ; Ac confederated salish nonintractable headache, unspecified headache type R51 and Viral upper respiratory tract infection J06.9 [facility] [address] [id number] [address] [place] [phone] [address], [address] [facility] [address] [facility] [id number] [address] [place] [address] May, [facility] [id number] [place] [address] May, [facility] [address] [address] May, Bipolar 2 disorder F31.81 ; Social anxiety disorder F40.10 ; Chronic post-traumatic stress disorder (PTSD) F43.12 ; Attention deficit disorder F90.0 and Encounter for immunization Z23 [facility] [address] [address] 12 Apr, 2018 [facility] [id number] [place] [address] Apr, Body aches R52 and Acute chely opharyngitis J00 [facility] [address] [id number] [address] [place] [address] 24 Mar, 2018 Pure hypercholesterolemia E7 8.00 and Exertional chest pain R07.9 [place] [address] [id number] [place] [address] Mar, Hyperlipidemia E78.5 ; Hyper tension I10 and Routine adult health maintenance Z00.00 [place] [id number] [place] [address] 20 Mar, 2018 Hypertension I10 ; Hyperlipi demia E78.5 ; Chest pain, exertional R07.9 and Routine adult health maintenance Z00.00 [facility] [address] [id number] [address] [place] [address] 17 Mar, 2018 [place] [id number] [place] [address] 04 Mar, 2018 Lumbago with sciatica, left side M54.42 and Lumbago with sciatica, right side M54.41 [facility] [id number] [address] Jan, [facility] [address] [id number] [address] [place] [address] Dec, Bipolar 2 disorder F31.81 ; Social anxiety disorder F40.10 and Chronic post-traumatic stress disorder (PTSD) F43.12 [facility] [address] [id number] [address] [place] [address] Dec, [facility] [address] [id number] [address] [place] [address] Dec, [facility] [address] [id number] [address] [place] [address] Dec, Upper respiratory tract infe ction, unspecified type J06.9 [facility] [address] [facility] [id number] [address] [place] [address] October, [facility] [address] [facility] [id number] [address] [place] [address] Oct, Bipolar 2 disorder F31.81 ; Attention deficit disorder F90.0 ; Social anxiety disorder F40.10 and Chronic post-traumatic stress disorder (PTSD) F43.12 [facility] [address] [facility] [id number] [address] [place] [address] Oct, [facility] [address] [id number] [address] [place] [address] Oct, [facility] [address] [facility] [id number] [address] [place] [address] Aug, [facility] [address] [facility] [id number] [address] [place] [address] Aug, [facility] [address] [facility] [id number] [address] [place] [address] Jul, Strain of lumbar region, ini tial encounter S39.012A [facility] [address] [facility] [id number] [address] [place] [address] Jul, Lumbago with sciatica, left side M54.42 and Lumbago with sciatica, right side M54.41 [facility] [address] [address] Jul, Low back pain M54.5 and Othe r chronic pain G89.29 [facility] [address] [address] Jul, [place] [address] [address] Jul, Bipolar 2 disorder F31.81 ; Attention deficit disorder F90.0 and Social anxiety disorder F40.10 [place] [address] [address] Jun, [place] [address] [address] May, [place] [address] [address] Apr, Bipolar 2 disorder F31.81 ; Attention deficit disorder F90.0 ; Social anxiety disorder F40.10 and Chronic post-traumatic stress disorder (PTSD) F43.12 [place] [address] [address] 13 Apr, 2017 [place] [address] [address] Apr, Hyperlipidemia E78.5 [facility] [address] [address] 27 Mar, 2017 Encounter for immunization Z 23 and Tinea cruris B35.6 [place] [address] [address] 15 Mar, 2017 [place] [address] [address] Jan, [place] [address] [address] Dec, [facility] [address] [facility] [id number] [address] [place] [address] Dec, [facility] [address] [facility] [id number] [address] [place] [address] Dec, Bipolar 2 disorder F31.81 ; Social anxiety disorder F40.10 and Attention deficit disorder F90.0 [facility] [address] [facility] [id number] [address] [place] [address] Dec, [facility] [address] [facility] [id number] [address] [place] [address] Dec, Hypertension I10 [facility] [address] [facility] [id number] [address] [place] [address] October, [facility] [address] [facility] [id number] [address] [place] [address] Oct, [facility] [address] [facility] [id number] [address] [place] [address] Oct, Nasal congestion R09.81 [facility] [address] [facility] [id number] [address] [place] [address] Oct, Social anxiety disorder F40. 10 ; Bipolar 2 disorder F31.81 and Attention deficit disorder F90.0 [facility] [address] [facility] [id number] [address] [place] [phone] Aug, [facility] [address] [facility] [id number] [address] [place] [address] Aug, [facility] [address] [facility] [id number] [address] [place] [address] Jul, Nasal congestion R09.81 [facility] [address] [facility] [id number] [address] [place] [address] Jul, [facility] [address] [facility] [id number] [address] [place] [address] Jun, Bipolar 2 disorder F31.81 ; Attention deficit disorder F90.0 ; Social anxiety disorder F40.10 and Chronic post-traumatic stress disorder (PTSD) F43.12 [facility] [address] [address] Jun, [facility] [address] [id number] [address] [place] [address] May, [facility] [address] [address] Apr, Attention deficit disorder F 90.0 [place] [address] [address] Apr, Urinary hesitancy R39.11 ; H yperlipidemia E78.5 and Encounter for immunization Z23 [facility] [address] [address] Apr, [facility] [address] [address] Mar, [facility] [address] [address] Jan, [facility] [address] [address] Dec, [facility] [address] [address] Dec, [facility] [address] [address] Dec, Bipolar 2 disorder F31.81 ; Attention deficit disorder F90.0 ; Posttraumatic stress disorder F43.10 and Social anxiety disorder F40.10 [facility] [id number] [place] [address] Dec, Scabies exposure Z20.[address] [facility] [address] [id number] [address] [place] [address] Dec, [facility] [id number] [address] Dec, Hypertension I10 and Gastroe sophageal reflux disease without esophagitis K21.9 [facility] [address] [facility] [id number] [address] [place] [address] October, [facility] [address] [facility] [id number] [address] [place] [address] October, [facility] [address] [facility] [id number] [address] [place] [address] Oct, Bipolar 2 disorder F31.81 ; Posttraumatic stress disorder F43.10 ; Attention deficit disorder F90.0 and Social anxiety disorder F40.10 [facility] [address] [facility] [id number] [address] [place] [address] Oct, [facility] [id number] [place] [address] Oct, Hypertension I10 and Nasal c ongestion R09.81 [facility] [address] [facility] [id number] [address] [place] [address] Aug, [facility] [address] [facility] [id number] [address] [place] [address] Aug, [facility] [address] [facility] [id number] [address] [place] [address] Aug, [facility] [address] [facility] [id number] [address] [place] [phone] Aug, [facility] [address] [facility] [id number] [address] [place] [address] Aug, [facility] [address] [facility] [id number] [address] [place] [address] Aug, Hypertension I10 [address]25.1 [facility] [address] [facility] [id number] [address] [place] [address] Aug, Bipolar 2 disorder F31.81 ; Posttraumatic stress disorder F43.10 ; Attention deficit disorder F90.0 and Social anxiety disorder F40.10 [facility] [address] [facility] [id number] [address] [place] [address] Jul, [facility] [address] [facility] [id number] [address] [place] [address] Jul, Hyperlipidemia E78.5 [facility] [address] [facility] [id number] [address] [place] [address] Jul, Hypertension I10 and Hyperli pidemia E78.5 [facility] [address] [id number] [address] [place] [address] Jun, Bipolar 2 disorder F31.81 ; Posttraumatic stress disorder F43.10 ; Attention deficit disorder F90.0 and Social anxiety disorder F40.10 [facility] [address] [facility] [id number] [address] [place] [address] May, [facility] [address] [facility] [id number] [address] [place] [address] May, [facility] [address] [facility] [id number] [address] [place] [address] Apr, Bipolar 2 disorder F31.81 ; Posttraumatic stress disorder F43.10 ; Attention deficit disorder F90.[address] phobia F40.10 [facility] [address] [facility] [id number] [address] [place] [address] Apr, Bipolar 2 disorder F31.81 ; Posttraumatic stress disorder F43.10 and Attention deficit disorder F90.0 [facility] [address] [facility] [id number] [address] [place] [address] Apr, [facility] [address] [facility] [id number] [address] [place] [address] Apr, [facility] [address] [facility] [id number] [address] [place] [address] Apr, [facility] [address] [facility] [id number] [address] [place] [address] Mar, [facility] [address] [facility] [id number] [address] [place] [phone] Mar, [facility] [address] [facility] [id number] [address] [place] [address] Jan, [facility] [address] [facility] [id number] [address] [place] [address] Jan, [facility] [address] [facility] [id number] [address] [place] [address] Jan, Bipolar II disorder 296.89 ; Posttraumatic stress disorder 309.81 ; Social phobia 300.23 and Attention deficit disorder of childhood without mention of hyperactivity 314.00 [facility] [address] [facility] [id number] [address] [place] [address] Jan, Other and unspecified bipola r disorders 296.89 ; Posttraumatic stress disorder 309.81 and Attention deficit disorder of childhood without mention of hyperactivity 314.00 [facility] [address] [facility] [id number] [address] [place] [address] Jan, [facility] [address] [facility] [id number] [address] [place] [address] Dec, Other and unspecified bipola r disorders 296.89 ; Posttraumatic stress disorder 309.81 and Attention deficit disorder of childhood without mention of hyperactivity 314.00 [facility] [address] [facility] [id number] [address] [place] [address] Dec, Migraines 346.90 [facility] [address] [facility] [id number] [address] [place] [address] Dec, Other and unspecified bipola r disorders 296.89 ; Posttraumatic stress disorder 309.81 and Attention deficit disorder of childhood without mention of hyperactivity 314.00 [facility] [address] [facility] [id number] [address] [place] [address] Dec, [facility] [address] [facility] [id number] [address] [place] [address] Dec, Bipolar II disorder 296.89 ; Social phobia 300.23 ; Posttraumatic stress disorder 309.81 and Attention deficit disorder of childhood without mention of hyperactivity 314.00 [facility] [address] [id number] [address] [place] [address] Dec, Other and unspecified bipola r disorders 296.89 ; Posttraumatic stress disorder 309.81 and Attention deficit disorder of childhood without mention of hyperactivity 314.00 [facility] [address] [id number] [address] [place] [address] October, Other and unspecified bipola r disorders 296.89 ; Posttraumatic stress disorder 309.81 and Attention deficit disorder of childhood without mention of hyperactivity 314.00 [facility] [address] [id number] [address] [place] [address] October, [facility] [address] [id number] [address] [place] [address] October, [facility] [address] [id number] [address] [place] [address] October, [facility] [address] [id number] [address] [place] [address] October, [facility] [address] [id number] [address] [place] [address] October, Attention deficit disorder o f childhood without mention of hyperactivity 314.00 ; Posttraumatic stress disorder 309.81 ; Social phobia 300.23 and Other and unspecified bipolar disorders 296.89 [facility] [address] [id number] [address] [place] [address] Oct, [facility] [address] [id number] [address] [place] [address] Oct, [facility] [address] [id number] [address] [place] [address] Aug, [facility] [address] [id number] [address] [place] [address] Aug, [facility] [address] [facility] [id number] [address] [place] [address] Aug, [facility] [place] [facility] [address] [id number] [facility] [address] 24 Aug, 2014 [facility] [place] [facility] [address] [id number] [facility] [address] 17 Aug, 2014 [facility] [place] [facility] [address] [id number] [facility] [address] 17 Aug, 2014 [facility] [place] [facility] [address] [id number] [facility] [address] 17 Aug, 2014 [facility] [place] [facility] [address] [id number] [facility] [address] 17 Aug, 2014 [facility] [place] [facility] [address] [id number] [facility] [address] 17 Aug, 2014 [facility] [address] [id number] [address] [place] [address], [place] [address] 17 Aug, 2014 [facility] [address] [id number] [address] [place] [address], [place] [address] 13 Aug, 2014 [facility] [address] [id number] [address] [place] [address], [place] [address] 13 Aug, 2014 [facility] [address] [id number] [address] [place] [address], [place] [address] 12 Aug, 2014 [facility] [address] [id number] [address] [place] [address], [place] [address] 12 Aug, 2014 [facility] [address] [id number] [address] [place] [address], [place] [address] 12 Aug, 2014 [facility] [address] [id number] [address] [place] [address], [place] [address] 12 Aug, 2014 [facility] [address] [id number] [address] [place] [address], [place] [address] 12 Aug, 2014 [facility] [address] [id number] [address] [place] [address], [place] [address] 12 Aug, 2014 [facility] [address] [id number] [address] [place] [address], [place] [address] Aug, [facility] [address] [id number] [address] [place] [address], [place] [address] Aug, [facility] [address] [id number] [address] [place] [address], [place] [address] Aug, [facility] [address] [id number] [address] [place] [address], [place] [address] Aug, [facility] [address] [id number] [address] [place] [address], [place] [address] Aug, [facility] [address] [id number] [address] [place] [address], [place] [address] Aug, [facility] [address] [id number] [address] [place] [address], [place] [address] Aug, [facility] [address] [id number] [address] [place] [address], [place] [address] Aug, [facility] [address] [id number] [address] [place] [address], [place] [address] Aug, [facility] [address] [id number] [address] [place] [address], [place] [address] Aug, [facility] [address] [id number] [address] [place] [address], [place] [address] Aug, [facility] [address] [id number] [address] [place] [address], [place] [address] Aug, [facility] [address] [id number] [address] [place] [address], [place] [address] Jul, [facility] [address] [id number] [address] [place] [address], [place] [address] Jul, [facility] [address] [id number] [address] [place] [address], [place] [id number] Jul, [facility] [address] [id number] [address] [place] [address], [place] [id number] Jul, [facility] [address] [id number] [address] [place] [phone] Jul, [facility] [address] [id number] [address] [place] [phone] Jul, [facility] [address] [id number] [address] [place] [phone] Jul, [facility] [address] [id number] [address] [place] [phone] Jul, [facility] [address] [id number] [address] [place] [phone] Jun, [facility] [address] [id number] [address] [place] [phone] Jun, [facility] [address] [id number] [address] [place] [id number] Jun, [facility] [address] [id number] [address] [place] [id number] Jun, [facility] [address] [id number] [address] [place] [id number] May, [facility] [address] [id number] [address] [place] [phone] May, [facility] [address] [id number] [address] [place] [phone] May, [facility] [address] [id number] [address] [place] [id number] May, [facility] [address] [id number] [address] [place] [phone] May, [facility] [address] [id number] [address] [place] [phone] Apr, [facility] [address] [id number] [address] [place] [id number] Apr, IMMUNIZATIONS No Known Immunizations SOCIAL HISTORY [...]
--- OUTSIDE RECORDS SUMMARY | 2019-11-11 19:06 | XMS REPORT ---
Author Author [facility] Address [address] [place] [address] Care Team Providers Care Instruction Librarian Name Role Phone GUILLERMO MCCORD Unavailable PROBLEMS Type Condition ICD9-CM Code YJD88-AH Code Onset Dates Condition S tatus SNOMED Code Problem Hyperlipidemia E78.5 Active 66568 004 Problem Hypertension I10 Active 5736829 3 Problem Chronic post-traumatic stress disorder (PTSD) F43. 12 Active 202042664 Problem Bipolar 2 disorder F31.81 Active 8 6025652 Problem PTSD (post-traumatic stress disorder) F43.10 Active 86850424 Problem Social anxiety disorder F40.10 Active 22324565 Problem Stage 3 chronic kidney disease N18.3 Active 796192620 Problem Attention deficit disorder F90.0 Act shalom 614361508 Problem Other chronic pain G89.29 Active 8 2924384 Problem Lumbago with sciatica, left side M54.42 Active 267774101 Problem Lumbago with sciatica, right side M54.41 Active [id number] Problem Pure hypercholesterolemia E78.00 Acti ve [id number] ALLERGIES No Information ENCOUNTERS Encounter Location Date Diagnosis [facility] [address] [facility] [id number] [address] [place] [phone] October, [facility] [address] [facility] [id number] [address] [place] [phone] Oct, [facility] [address] [facility] [id number] [address] [place] [phone] Oct, Chronic post-traumatic stres s disorder (PTSD) F43.12 [facility] [address] [facility] [id number] [address] [place] [phone] Oct, Attention deficit disorder F 90.0 [facility] [address] [facility] [id number] [address] [place] [phone] 09 Oct, 2019 Stage 3 chronic kidney disea se N18.3 [facility] [address] [id number] [address] [place] [id number] 09 Oct, 2019 Bipolar 2 disorder F31.81 ; Attention deficit disorder F90.0 ; Social anxiety disorder F40.10 and Chronic post-traumatic stress disorder (PTSD) F43.12 [facility] [address] [facility] [id number] [address] [place] [id number] 13 Sep, 2019 Attention deficit disorder F 90.0 [facility] [address] [id number] [address] [place] [id number] 02 Sep, 2019 Stage 3 chronic kidney disea se N18.3 [facility] [address] [facility] [id number] [address] [place] [phone] 28 Aug, 2019 Hypertension I10 ; Hyperlipi demia E78.5 and Other chronic pain G89.29 [place] [address] [facility] [id number] [address] [place] [id number] 14 Aug, 2019 [facility] [address] [facility] [id number] [address] [place] [phone] 13 Aug, 2019 Attention deficit disorder F 90.0 [facility] [address] [facility] [id number] [address] [place] [phone] Jul, [place] [address] [facility] [id number] [address] [place] [address] Jul, Bipolar 2 disorder F31.81 [facility] [address] [facility] [id number] [address] [place] [phone] 09 Jul, 2019 Bipolar 2 disorder F31.81 ; Attention deficit disorder F90.0 ; Chronic post-traumatic stress disorder (PTSD) F43.12 and Social anxiety disorder F40.10 [facility] [address] [facility] [id number] [address] [place] [address] Jun, Bipolar 2 disorder F31.81 [place] [address] [facility] [id number] [address] [place] [address] May, Bipolar 2 disorder F31.81 [facility] [address] [facility] [id number] [address] [place] [address] May, Bipolar 2 disorder F31.81 ; Attention deficit disorder F90.0 ; Social anxiety disorder F40.10 and PTSD (post-traumatic stress disorder) F43.10 [facility] [address] [facility] [id number] [address] [place] [address] Apr, Bipolar 2 disorder F31.81 [facility] [address] [facility] [id number] [address] [place] [address] Apr, Encounter for immunization Z 23 [place] [address] [facility] [id number] [address] [place] [address] Mar, Bipolar 2 disorder F31.81 [place] [address] [place] [id number] [address] [place] [address] Jan, Bipolar 2 disorder F31.81 [facility] [address] [facility] [id number] [address] [place] [address] Jan, Lumbago with sciatica, left side M54.42 and Lumbago with sciatica, right side M54.41 [place] [address] [place] [id number] [address] [place] [address] Jan, Bipolar 2 disorder F31.81 ; Attention deficit disorder F90.0 ; Social anxiety disorder F40.10 and Chronic post-traumatic stress disorder (PTSD) F43.12 [place] [address] [place] [id number] [address] [place] [address] Dec, Hypertension I10 and Impacte d cerumen of left ear H61.22 [place] [address] [place] [id number] [address] [place] [address] Dec, Bipolar 2 disorder F31.81 [place] [address] [place] [id number] [address] [place] [address] Dec, [place] [address] [id number] [address] Dec, Bipolar 2 disorder F31.81 [facility] [address] [facility] [id number] [address] [place] [address] Oct, Bipolar 2 disorder F31.81 [facility] [address] [facility] [id number] [address] [place] [address] Oct, Bipolar 2 disorder F31.81 ; Attention deficit disorder F90.0 ; Social anxiety disorder F40.10 and Chronic post-traumatic stress disorder (PTSD) F43.12 [facility] [address] [facility] [id number] [address] [place] [address] Aug, Lumbago with sciatica, left side M54.42 and Lumbago with sciatica, right side M54.41 [facility] [address] [place] [id number] [address] [place] [phone] Aug, Bipolar 2 disorder F31.81 [facility] [address] [place] [id number] [address] [place] [address] Aug, Bipolar 2 disorder F31.81 [place] [address] [place] [id number] [place] [address] Aug, Bipolar 2 disorder F31.81 ; Attention deficit disorder F90.0 ; Social anxiety disorder F40.10 and PTSD (post-traumatic stress disorder) F43.10 [facility] [address] [place] [id number] [address] [place] [phone] Jul, [facility] [address] [facility] [id number] [address] [place] [address] Jun, Nasal congestion R09.81 ; Ac [employer] nonintractable headache, unspecified headache type R51 and Viral upper respiratory tract infection J06.9 [facility] [address] [facility] [id number] [address] [place] [address] Jun, [facility] [address] [place] [id number] [place] [address] May, [facility] [address] [address] May, [facility] [address] [address] May, Bipolar 2 disorder F31.81 ; Social anxiety disorder F40.10 ; Chronic post-traumatic stress disorder (PTSD) F43.12 ; Attention deficit disorder F90.0 and Encounter for immunization Z23 [facility] [address] [address] Apr, [facility] [address] [address] Apr, Body aches R52 and Acute chely opharyngitis J00 [place] [address] [address] Mar, Pure hypercholesterolemia E7 8.00 and Exertional chest pain R07.9 [place] [address] [address] Mar, Hyperlipidemia E78.5 ; Hyper tension I10 and Routine adult health maintenance Z00.00 [place] [address] [address] 20 Mar, 2018 Hypertension I10 ; Hyperlipi demia E78.5 ; Chest pain, exertional R07.9 and Routine adult health maintenance Z00.00 [place] [address] [address] Mar, [place] [address] [address] Mar, Lumbago with sciatica, left side M54.42 and Lumbago with sciatica, right side M54.41 [place] [address] [address] Jan, [place] [address] [address] Dec, Bipolar 2 disorder F31.81 ; Social anxiety disorder F40.10 and Chronic post-traumatic stress disorder (PTSD) F43.12 [facility] [address] [id number] [address] [place] [address] Dec, [facility] [address] [id number] [address] [place] [address] Dec, [facility] [address] [id number] [address] [place] [address] Dec, Upper respiratory tract infe ction, unspecified type J06.9 [facility] [address] [id number] [address] [place] [phone] October, [facility] [address] [id number] [address] [place] [address] Oct, Bipolar 2 disorder F31.81 ; Attention deficit disorder F90.0 ; Social anxiety disorder F40.10 and Chronic post-traumatic stress disorder (PTSD) F43.12 [facility] [address] [id number] [address] [place] [address] Oct, [facility] [address] [id number] [address] [place] [phone] Oct, [facility] [address] [facility] [id number] [address] [place] [address] Aug, [facility] [address] [facility] [id number] [address] [place] [id number] Aug, [facility] [address] [id number] [address] [place] [address] Jul, Strain of lumbar region, ini tial encounter S39.012A [facility] [address] [id number] [address] [place] [address] Jul, Lumbago with sciatica, left side M54.42 and Lumbago with sciatica, right side M54.41 [facility] [address] [place] [id number] [address] [place] [address] Jul, Low back pain M54.5 and Othe r chronic pain G89.29 [facility] [address] [place] [id number] [place] [address] Jul, [facility] [address] [place] [id number] [address] [place] [address] Jul, Bipolar 2 disorder F31.81 ; Attention deficit disorder F90.0 and Social anxiety disorder F40.10 [facility] [address] [place] [id number] [place] [address] Jun, [facility] [address] [place] [id number] [place] [address] May, [facility] [address] [place] [id number] [place] [address] Apr, Bipolar 2 disorder F31.81 ; Attention deficit disorder F90.0 ; Social anxiety disorder F40.10 and Chronic post-traumatic stress disorder (PTSD) F43.12 [facility] [address] [address] Apr, [facility] [address] [address] Apr, Hyperlipidemia E78.5 [facility] [address] [facility] [id number] [address] [place] [address] Mar, Encounter for immunization Z 23 and Tinea cruris B35.6 [facility] [address] [place] [id number] [address] [place] [address] Mar, [facility] [address] [place] [id number] [address] [place] [address] Jan, [facility] [address] [place] [id number] [address] [place] [address] Dec, [facility] [address] [place] [id number] [place] [address] Dec, [facility] [address] [id number] [address] [place] [address] Dec, Bipolar 2 disorder F31.81 ; Social anxiety disorder F40.10 and Attention deficit disorder F90.0 [facility] [address] [id number] [address] [place] [address] Dec, [facility] [address] [id number] [address] [place] [address] Dec, Hypertension I10 [facility] [address] [id number] [address] [place] [address] October, [facility] [address] [id number] [address] [place] [address] Oct, [facility] [address] [facility] [id number] [address] [place] [address] Oct, Nasal congestion R09.81 [facility] [address] [facility] [id number] [address] [place] [address] Oct, Social anxiety disorder F40. 10 ; Bipolar 2 disorder F31.81 and Attention deficit disorder F90.0 [facility] [address] [id number] [address] [place] [address] Aug, [facility] [address] [facility] [id number] [address] [place] [address] Aug, [facility] [address] [id number] [address] [place] [address] Jul, Nasal congestion R09.81 [facility] [address] [id number] [address] [place] [address] Jul, [facility] [address] [facility] [id number] [address] [place] [address] Jun, Bipolar 2 disorder F31.81 ; Attention deficit disorder F90.0 ; Social anxiety disorder F40.10 and Chronic post-traumatic stress disorder (PTSD) F43.12 [facility] [address] [facility] [id number] [address] [place] [address] Jun, [facility] [address] [facility] [id number] [address] [place] [address] May, [facility] [address] [place] [id number] [address] [place] [address] Apr, Attention deficit disorder F 90.0 [facility] [address] [address] Apr, Urinary hesitancy R39.11 ; H yperlipidemia E78.5 and Encounter for immunization Z23 [facility] [address] [place] [id number] [address] [place] [address] Apr, [facility] [address] [place] [id number] [place] [address] Mar, [facility] [address] [address] Jan, [facility] [address] [place] [id number] [address] [place] [address] Dec, [facility] [address] [address] Dec, [facility] [address] [place] [id number] [address] [place] [address] Dec, Bipolar 2 disorder F31.81 ; Attention deficit disorder F90.0 ; Posttraumatic stress disorder F43.10 and Social anxiety disorder F40.10 [facility] [address] [place] [id number] [address] [place] [address] Dec, Scabies exposure Z20.89 and Scabies B86 [facility] [address] [place] [id number] [address] [place] [address] Dec, [facility] [address] [place] [id number] [address] [place] [address] Dec, Hypertension I10 and Gastroe sophageal reflux disease without esophagitis K21.9 [facility] [address] [place] [id number] [address] [place] [address] October, [facility] [address] [facility] [id number] [address] [place] [address] October, [facility] [address] [facility] [id number] [address] [place] [address] Oct, Bipolar 2 disorder F31.81 ; Posttraumatic stress disorder F43.10 ; Attention deficit disorder F90.0 and Social anxiety disorder F40.10 [facility] [address] [facility] [id number] [address] [place] [address] Oct, [facility] [address] [facility] [id number] [address] [place] [address] Oct, Hypertension I10 and Nasal c ongestion R09.81 [facility] [address] [facility] [id number] [address] [place] [address] Aug, [facility] [address] [facility] [id number] [address] [place] [phone] Aug, [facility] [address] [facility] [id number] [address] [place] [phone] Aug, [facility] [address] [facility] [id number] [address] [place] [address] Aug, [facility] [address] [facility] [id number] [address] [place] [address] Aug, [facility] [address] [facility] [id number] [address] [place] [address] Aug, Hypertension I10 and Tremor R25.1 [facility] [address] [facility] [id number] [address] [place] [address] Aug, Bipolar 2 disorder F31.81 ; Posttraumatic stress disorder F43.10 ; Attention deficit disorder F90.0 and Social anxiety disorder F40.10 [facility] [address] [facility] [id number] [address] [place] [address] Jul, [facility] [address] [id number] [address] [place] [address] Jul, Hyperlipidemia E78.5 [facility] [address] [facility] [id number] [address] [place] [address] Jul, Hypertension I10 and Hyperli pidemia E78.5 [facility] [address] [id number] [address] [place] [address] Jun, Bipolar 2 disorder F31.81 ; Posttraumatic stress disorder F43.10 ; Attention deficit disorder F90.0 and Social anxiety disorder F40.10 [facility] [address] [id number] [address] [place] [address] May, [facility] [address] [facility] [id number] [address] [place] [address] May, [facility] [address] [facility] [id number] [address] [place] [address] Apr, Bipolar 2 disorder F31.81 ; Posttraumatic stress disorder F43.10 ; Attention deficit disorder F90.0 and Social phobia F40.10 [facility] [address] [id number] [address] [place] [address] Apr, Bipolar 2 disorder F31.81 ; Posttraumatic stress disorder F43.10 and Attention deficit disorder F90.0 [facility] [address] [facility] [id number] [address] [place] [address] Apr, [facility] [address] [id number] [address] [place] [address] Apr, [facility] [address] [facility] [id number] [address] [place] [address] Apr, [facility] [address] [id number] [address] [place] [phone] Mar, [facility] [address] [facility] [id number] [address] [place] [phone] Mar, [facility] [address] [id number] [address] [place] [phone] Jan, [facility] [address] [facility] [id number] [address] [place] [address] Jan, [facility] [address] [facility] [id number] [address] [place] [address] Jan, Bipolar II disorder 296.89 ; Posttraumatic stress disorder 309.81 ; Social phobia 300.23 and Attention deficit disorder of childhood without mention of hyperactivity 314.00 [facility] [address] [facility] [id number] [address] [place] [address] Jan, Other and unspecified bipola r disorders 296.89 ; Posttraumatic stress disorder 309.81 and Attention deficit disorder of childhood without mention of hyperactivity 314.00 [facility] [address] [facility] [id number] [address] [place] [address] Jan, [facility] [address] [facility] [id number] [address] [place] [id number] Dec, Other and unspecified bipola r disorders 296.89 ; Posttraumatic stress disorder 309.81 and Attention deficit disorder of childhood without mention of hyperactivity 314.00 [facility] [address] [facility] [id number] [address] [place] [id number] Dec, Migraines 346.90 [facility] [address] [facility] [id number] [address] [place] [id number] Dec, Other and unspecified bipola r disorders 296.89 ; Posttraumatic stress disorder 309.81 and Attention deficit disorder of childhood without mention of hyperactivity 314.00 [facility] [address] [facility] [id number] [address] [place] [id number] Dec, [facility] [address] [facility] [id number] [address] [place] [id number] Dec, Bipolar II disorder 296.89 ; Social phobia 300.23 ; Posttraumatic stress disorder 309.81 and Attention deficit disorder of childhood without mention of hyperactivity 314.00 [facility] [address] [facility] [id number] [address] [place] [id number] Dec, Other and unspecified bipola r disorders 296.89 ; Posttraumatic stress disorder 309.81 and Attention deficit disorder of childhood without mention of hyperactivity 314.00 [facility] [address] [id number] [address] [place], [place] [id number] October, Other and unspecified bipola r disorders 296.89 ; Posttraumatic stress disorder 309.81 and Attention deficit disorder of childhood without mention of hyperactivity 314.00 [facility] [address] [id number] [address] [place] [id number] October, [facility] [address] [id number] [address] [place] [id number] October, [facility] [address] [id number] [address] [place] [id number] October, [facility] [address] [id number] [address] [place] [id number] October, [facility] [address] [id number] [address] [place] [id number] October, Attention deficit disorder o f childhood without mention of hyperactivity 314.00 ; Posttraumatic stress disorder 309.81 ; Social phobia 300.23 and Other and unspecified bipolar disorders 296.89 [facility] [address] [id number] [address] [place] [id number] Oct, [facility] [address] [id number] [address] [place] [phone] Oct, [facility] [address] [id number] [address] [place] [id number] Aug, [facility] [address] [id number] [address] [place] [phone] Aug, [facility] [address] [id number] [address] [place] [id number] Aug, [facility] [address] [id number] [address] [place] [id number] Aug, [facility] [address] [id number] [address] [place] [phone] 17 Aug, 2014 [facility] [address] [id number] [facility] [place] [address] 17 Aug, 2014 [facility] [address] [id number] [address] [place] [id number], [place] [address] 17 Aug, 2014 [facility] [address] [id number] [address] [place] [id number], [place] [address] 17 Aug, 2014 [facility] [address] [id number] [address] [place] [id number], [place] [address] 17 Aug, 2014 [facility] [address] [id number] [address] [place] [id number], [place] [address] 17 Aug, 2014 [facility] [address] [id number] [address] [place] [id number], [place] [address] 13 Aug, 2014 [facility] [address] [id number] [address] [place] [id number], [place] [address] 13 Aug, 2014 [facility] [address] [id number] [address] [place] [id number], [place] [address] 12 Aug, 2014 [facility] [address] [id number] [address] [place] [id number], [place] [address] Aug, [facility] [address] [id number] [address] [place] [id number], [place] [address] Aug, [facility] [address] [id number] [address] [place] [id number], [place] [address] Aug, [facility] [address] [id number] [address] [place] [id number], [place] [address] Aug, [facility] [address] [id number] [address] [place] [id number], [place] [address] Aug, [facility] [address] [id number] [address] [place] [id number], [place] [address] Aug, [facility] [address] [id number] [address] [place] [id number], [place] [address] Aug, [facility] [address] [id number] [address] [place] [id number], [place] [address] Aug, [facility] [address] [id number] [address] [place] [id number], [place] [address] Aug, [facility] [address] [id number] [address] [place] [id number], [place] [address] Aug, [facility] [address] [id number] [address] [place] [id number], [place] [address] Aug, [facility] [address] [id number] [address] [place] [id number], [place] [address] Aug, [facility] [address] [id number] [address] [place] [id number], [place] [address] Aug, [facility] [address] [id number] [address] [place] [id number], [place] [address] Aug, [facility] [address] [id number] [address] [place] [id number], [place] [address] Aug, [facility] [address] [id number] [address] [place] [id number], [place] [address] Aug, [facility] [address] [id number] [address] [place] [id number], [place] [address] Aug, [facility] [address] [id number] [address] [place] [id number], [place] [address] Jul, [facility] [address] [id number] [address] [place] [id number], [place] [address] Jul, [facility] [address] [id number] [address] [place] [id number], [place] [address] Jul, [facility] [address] [id number] [address] [place] [id number], [place] [address] Jul, [facility] [address] [id number] [address] [place] [id number], [place] [address] Jul, [facility] [address] [id number] [address] [place] [phone] Jul, [facility] [address] [id number] [address] [place] [phone] Jul, [facility] [address] [id number] [address] [place] [phone] Jul, [facility] [address] [id number] [address] [place] [phone] Jun, [facility] [address] [id number] [address] [place] [phone] Jun, [facility] [address] [id number] [address] [place] [phone] Jun, [facility] [address] [id number] [address] [place] [phone] Jun, [facility] [address] [id number] [address] [place] [phone] May, [facility] [address] [id number] [address] [place] [phone] May, [facility] [address] [id number] [address] [place] [phone] May, [facility] [address] [id number] [address] [place] [phone] May, [facility] [address] [id number] [address] [place] [phone] May, [facility] [address] [id number] [address] [place] [id number] Apr, [facility] [address] [id number] [address] [place] [phone] Apr, IMMUNIZATIONS No Known Immunizations SOCIAL HISTORY Never Assessed REASON FOR VISIT PLAN OF CARE VITAL SIGNS Height 64.5 in 2014-07-24 Weight 160.5 lbs 2014-07-24 Temperature 98 degrees Fahrenheit 2014-07-24 Heart Rate 88 bpm 2014-07-24 Respiratory Rate 28 2014-07-24 Blood pressure systolic 114 mmHg 2014-07-24 Blood pressure diastolic 84 mmHg 2014-07-24 MEDICATIONS Unknown Medications RESULTS No Results PROCEDURES [...]
--- OUTSIDE RECORDS SUMMARY | 2019-11-11 19:06 | XMS REPORT ---
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 12 Active 604315847 Problem Other chronic pain G89.29 Active 8 1358419 Problem Lumbago with sciatica, left side M54.42 Active 209323320 Problem Lumbago with sciatica, right side M54.41 Active [id number] ALLERGIES No Information ENCOUNTERS Encounter Location Date Diagnosis [facility] [address] [facility] [id number] [address] [place] [id number] May, [facility] [address] [place] [id number] [address] [place] [address] Jan, Bipolar 2 disorder F31.81 [facility] [address] [facility] [id number] [address] [place] [address] Jan, Lumbago with sciatica, left side M54.42 and Lumbago with sciatica, right side M54.41 [facility] [address] [facility] [id number] [address] [place] [address] 08 Jan, 2019 Bipolar 2 disorder F31.81 ; Attention deficit disorder F90.0 ; Social anxiety disorder F40.10 and Chronic post-traumatic stress disorder (PTSD) F43.12 [facility] [address] [facility] [id number] [address] [place] [id number] Dec, Hypertension I10 and Impacte d cerumen of left ear H61.22 [facility] [address] [facility] [id number] [address] [place] [address] Dec, Bipolar 2 disorder F31.81 [facility] [address] [facility] [id number] [address] [place] [address] Dec, [place] [address] [facility] [id number] [address] [place] [address] Dec, Bipolar 2 disorder F31.81 [place] [address] [place] [id number] [address] [place] [address] Oct, Bipolar 2 disorder F31.81 [place] [address] [place] [id number] [address] [place] [address] Oct, Bipolar 2 disorder F31.81 ; Attention deficit disorder F90.0 ; Social anxiety disorder F40.10 and Chronic post-traumatic stress disorder (PTSD) F43.12 [facility] [address] [place] [id number] [address] [place] [address] Aug, Lumbago with sciatica, left side M54.42 and Lumbago with sciatica, right side M54.41 [facility] [address] [place] [id number] [address] [place] [address] Aug, Bipolar 2 disorder F31.81 [facility] [address] [facility] [id number] [address] [place] [address] Aug, Bipolar 2 disorder F31.81 [place] [address] [place] [id number] [address] [place] [address] Aug, Bipolar 2 disorder F31.81 ; Attention deficit disorder F90.0 ; Social anxiety disorder F40.10 and PTSD (post-traumatic stress disorder) F43.10 [facility] [address] [place] [id number] [address] [place] [address] Jul, [facility] [address] [place] [id number] [place] [address] Jun, Nasal congestion R09.81 ; Ac [place] nonintractable headache, unspecified headache type R51 and Viral upper respiratory tract infection J06.9 [facility] [address] [address] Jun, [facility] [address] [address] May, [place] [address] [address] May, [facility] [address] [address] May, Bipolar 2 disorder F31.81 ; Social anxiety disorder F40.10 ; Chronic post-traumatic stress disorder (PTSD) F43.12 ; Attention deficit disorder F90.0 and Encounter for immunization Z23 [facility] [address] [address] 12 Apr, 2018 [facility] [address] [place] [id number] [place] [address] Apr, Body aches R52 and Acute chely opharyngitis J00 [place] [address] [address] 24 Mar, 2018 Pure hypercholesterolemia E7 8.00 and Exertional chest pain R07.9 [facility] [address] [place] [id number] [address] [place] [address] 21 Mar, 2018 Hyperlipidemia E78.5 ; Hyper tension I10 and Routine adult health maintenance Z00.00 [facility] [address] [place] [id number] [place] [address] 20 Mar, 2018 Hypertension I10 ; Hyperlipi demia E78.5 ; Chest pain, exertional R07.9 and Routine adult health maintenance Z00.00 [place] [address] [id number] [address] [place] [address] Mar, [facility] [address] [id number] [address] [place] [address] Mar, Lumbago with sciatica, left side M54.42 and Lumbago with sciatica, right side M54.41 [facility] [address] [id number] [address] [place] [address] Jan, [facility] [address] [id number] [address] [place] [address] Dec, Bipolar 2 disorder F31.81 ; Social anxiety disorder F40.10 and Chronic post-traumatic stress disorder (PTSD) F43.12 [facility] [address] [facility] [id number] [address] [place] [address] Dec, [facility] [address] [facility] [id number] [address] [place] [address] Dec, [facility] [address] [id number] [address] [place] [address] Dec, Upper respiratory tract infe ction, unspecified type J06.9 [facility] [address] [facility] [id number] [address] [place] [address] October, [facility] [address] [facility] [id number] [address] [place] [address] Oct, Bipolar 2 disorder F31.81 ; Attention deficit disorder F90.0 ; Social anxiety disorder F40.10 and Chronic post-traumatic stress disorder (PTSD) F43.12 [facility] [address] [id number] [address] [place] [address] Oct, [facility] [address] [facility] [id number] [address] [place] [address] Oct, [facility] [address] [facility] [id number] [address] [place] [address] Aug, [facility] [address] [id number] [address] [place] [address] 05 Aug, 2017 [facility] [address] [id number] [address] [place] [address] Jul, Strain of lumbar region, ini tial encounter S39.012A [facility] [address] [id number] [address] [place] [address] Jul, Lumbago with sciatica, left side M54.42 and Lumbago with sciatica, right side M54.41 [facility] [address] [id number] [address] [place] [address] Jul, Low back pain M54.5 and Othe r chronic pain G89.29 [facility] [address] [facility] [id number] [address] [place] [address] Jul, [facility] [address] [facility] [id number] [address] [place] [address] Jul, Bipolar 2 disorder F31.81 ; Attention deficit disorder F90.0 and Social anxiety disorder F40.10 [place] [address] [id number] [address] [place] [address] Jun, [facility] [address] [facility] [id number] [address] [place] [address] May, [facility] [address] [facility] [id number] [address] [place] [address] Apr, Bipolar 2 disorder F31.81 ; Attention deficit disorder F90.0 ; Social anxiety disorder F40.10 and Chronic post-traumatic stress disorder (PTSD) F43.12 [place] [address] [facility] [id number] [address] [place] [address] Apr, [place] [address] [facility] [id number] [address] [place] [phone] 12 Apr, 2017 Hyperlipidemia E78.5 [facility] [address] [facility] [id number] [address] [place] [address] Mar, Encounter for immunization Z 23 and Tinea cruris B35.6 [facility] [address] [facility] [id number] [address] [place] [address] Mar, [facility] [address] [facility] [id number] [address] [place] [address] Jan, [facility] [address] [facility] [id number] [address] [place] [address] Dec, [facility] [address] [facility] [id number] [address] [place] [address] Dec, [facility] [address] [facility] [id number] [address] [place] [address] Dec, Bipolar 2 disorder F31.81 ; Social anxiety disorder F40.10 and Attention deficit disorder F90.0 [facility] [address] [place] [id number] [address] [place] [address] Dec, [facility] [address] [place] [id number] [address] [place] [address] Dec, Hypertension I10 [facility] [address] [facility] [id number] [address] [place] [address] October, [facility] [address] [place] [id number] [address] [place] [address] Oct, [facility] [address] [place] [id number] [address] [place] [address] Oct, Nasal congestion R09.81 [facility] [address] [facility] [id number] [address] [place] [address] Oct, Social anxiety disorder F40. 10 ; Bipolar 2 disorder F31.81 and Attention deficit disorder F90.0 [facility] [address] [facility] [id number] [address] [place] [address] Aug, [facility] [address] [place] [id number] [address] [place] [address] Aug, [facility] [address] [place] [id number] [address] [place] [address] Jul, Nasal congestion R09.81 [facility] [address] [facility] [id number] [address] [place] [address] Jul, [facility] [address] [facility] [id number] [address] [place] [address] Jun, Bipolar 2 disorder F31.81 ; Attention deficit disorder F90.0 ; Social anxiety disorder F40.10 and Chronic post-traumatic stress disorder (PTSD) F43.12 [facility] [address] [facility] [id number] [address] [place] [address] Jun, [facility] [address] [place] [id number] [place] [address] May, [facility] [address] [place] [id number] [place] [address] Apr, Attention deficit disorder F 90.0 [facility] [address] [address] Apr, Urinary hesitancy R39.11 ; H yperlipidemia E78.5 and Encounter for immunization Z23 [facility] [address] [place] [id number] [address] [place] [address] Apr, [facility] [address] [place] [id number] [address] [place] [address] Mar, [facility] [address] [facility] [id number] [address] [place] [address] Jan, [facility] [address] [place] [id number] [address] [place] [address] Dec, [facility] [address] [place] [id number] [address] [place] [address] Dec, [facility] [address] [facility] [id number] [address] [place] [address] Dec, Bipolar 2 disorder F31.81 ; Attention deficit disorder F90.0 ; Posttraumatic stress disorder F43.10 and Social anxiety disorder F40.10 [facility] [address] [facility] [id number] [address] [place] [address] 27 Dec, 2015 Scabies exposure Z20.89 and Scabies B86 [facility] [address] [facility] [id number] [address] [place] [address] 24 Dec, 2015 [facility] [address] [facility] [id number] [address] [place] [id number] 16 Dec, 2015 Hypertension I10 and Gastroe sophageal reflux disease without esophagitis K21.9 [facility] [address] [facility] [id number] [address] [place] [address] October, [facility] [address] [facility] [id number] [address] [place] [address] October, [facility] [address] [facility] [id number] [address] [place] [address] 14 Oct, 2015 Bipolar 2 disorder F31.81 ; Posttraumatic stress disorder F43.10 ; Attention deficit disorder F90.0 and Social anxiety disorder F40.10 [facility] [address] [facility] [id number] [address] [place] [address] Oct, [facility] [address] [facility] [id number] [address] [place] [address] Oct, Hypertension I10 and Nasal c ongestion R09.81 [facility] [address] [facility] [id number] [address] [place] [id number] Aug, [facility] [address] [facility] [id number] [address] [place] [phone] Aug, [facility] [address] [facility] [id number] [address] [place] [address] Aug, [facility] [address] [facility] [id number] [address] [place] [address] 26 Aug, 2015 [facility] [address] [place] [id number] [address] [place] [phone] 15 Aug, 2015 [facility] [address] [place] [id number] [address] [place] [address] Aug, Hypertension I10 and Tremor R25.1 [facility] [address] [place] [id number] [place] [address] 04 Aug, 2015 Bipolar 2 disorder F31.81 ; Posttraumatic stress disorder F43.10 ; Attention deficit disorder F90.0 and Social anxiety disorder F40.10 [place] [address] [address] Jul, [facility] [address] [address] Jul, Hyperlipidemia E78.5 [place] [address] [address] Jul, Hypertension I10 and Hyperli pidemia E78.5 [place] [address] [address] Jun, Bipolar 2 disorder F31.81 ; Posttraumatic stress disorder F43.10 ; Attention deficit disorder F90.0 and Social anxiety disorder F40.10 [place] [address] [address] May, [place] [address] [address] May, [facility] [address] [address] Apr, Bipolar 2 disorder F31.81 ; Posttraumatic stress disorder F43.10 ; Attention deficit disorder F90.0 and Social phobia F40.10 [place] [address] [address] Apr, Bipolar 2 disorder F31.81 ; Posttraumatic stress disorder F43.10 and Attention deficit disorder F90.0 [place] [address] [address] Apr, [facility] [address] [id number] [address] [place] [address] Apr, [facility] [address] [id number] [address] [place] [address] Apr, [facility] [address] [id number] [address] [place] [address] Mar, [facility] [address] [id number] [address] [place] [address] Mar, [facility] [address] [id number] [address] [place] [address] Jan, [facility] [address] [id number] [address] [place] [address] Jan, [facility] [address] [facility] [id number] [address] [place] [address] Jan, Bipolar II disorder 296.89 ; Posttraumatic stress disorder 309.81 ; Social phobia 300.23 and Attention deficit disorder of childhood without mention of hyperactivity 314.00 [facility] [address] [facility] [id number] [address] [place] [address] Jan, Other and unspecified bipola r disorders 296.89 ; Posttraumatic stress disorder 309.81 and Attention deficit disorder of childhood without mention of hyperactivity 314.00 [facility] [address] [facility] [id number] [address] [place] [address] Jan, [facility] [address] [facility] [id number] [address] [place] [address] Dec, Other and unspecified bipola r disorders 296.89 ; Posttraumatic stress disorder 309.81 and Attention deficit disorder of childhood without mention of hyperactivity 314.00 [facility] [address] [facility] [id number] [address] [place] [address] Dec, Migraines 346.90 [facility] [address] [facility] [id number] [address] [place] [address] Dec, Other and unspecified bipola r disorders 296.89 ; Posttraumatic stress disorder 309.81 and Attention deficit disorder of childhood without mention of hyperactivity 314.00 [facility] [address] [id number] [address] [place] [address] Dec, [facility] [address] [facility] [id number] [address] [place] [address] Dec, Bipolar II disorder 296.89 ; Social phobia 300.23 ; Posttraumatic stress disorder 309.81 and Attention deficit disorder of childhood without mention of hyperactivity 314.00 [facility] [address] [facility] [id number] [address] [place] [address] Dec, Other and unspecified bipola r disorders 296.89 ; Posttraumatic stress disorder 309.81 and Attention deficit disorder of childhood without mention of hyperactivity 314.00 [facility] [address] [facility] [id number] [address] [place] [address] October, Other and unspecified bipola r disorders 296.89 ; Posttraumatic stress disorder 309.81 and Attention deficit disorder of childhood without mention of hyperactivity 314.00 [facility] [address] [facility] [id number] [address] [place] [address] October, [facility] [address] [facility] [id number] [address] [place] [address] October, [facility] [address] [facility] [id number] [address] [place] [address] October, [facility] [address] [facility] [id number] [address] [place] [address] October, [facility] [address] [facility] [id number] [address] [place] [address] October, Attention deficit disorder o f childhood without mention of hyperactivity 314.00 ; Posttraumatic stress disorder 309.81 ; Social phobia 300.23 and Other and unspecified bipolar disorders 296.89 [facility] [address] [facility] [id number] [address] [place] [address] Oct, [facility] [address] [facility] [id number] [address] [place] [address] Oct, [facility] [address] [id number] [facility] [place] [address] 26 Aug, 2014 [facility] [address] [id number] [facility] [place] [address] 26 Aug, 2014 [facility] [address] [id number] [facility] [place] [address] 24 Aug, 2014 [facility] [address] [id number] [address] [place] [address], [place] [address] 24 Aug, 2014 [facility] [address] [id number] [facility] [place] [address] 17 Aug, 2014 [facility] [address] [id number] [address] [place] [address], [place] [address] 17 Aug, 2014 [facility] [address] [id number] [address] [place] [address], [place] [address] 17 Aug, 2014 [facility] [address] [id number] [address] [place] [address], [place] [address] 17 Aug, 2014 [facility] [address] [id number] [address] [place] [address], [place] [address] 17 Aug, 2014 [facility] [address] [id number] [address] [place] [address], [place] [id number] 17 Aug, 2014 [facility] [address] [id number] [address] [place] [address], [place] [address] 13 Aug, 2014 [facility] [address] [id number] [address] [place] [address], [place] [address] 13 Aug, 2014 [facility] [address] [id number] [address] [place] [address], [place] [address] 12 Aug, 2014 [facility] [address] [id number] [address] [place] [address], [place] [address] 12 Aug, 2014 [facility] [address] [id number] [address] [place] [address], [place] [address] 12 Aug, 2014 [facility] [address] [id number] [address] [address] Aug, [facility] [address] [id number] [address] [place] [address], [place] [address] Aug, [facility] [address] [id number] [address] [place] [address], [place] [address] Aug, [facility] [address] [id number] [address] [place] [address], [place] [address] Aug, [facility] [address] [id number] [address] [place] [address], [place] [address] Aug, [facility] [address] [id number] [address] [place] [address], [place] [address] Aug, [facility] [address] [id number] [address] [place] [address], [place] [address] Aug, [facility] [address] [id number] [address] [place] [address], [place] [id number] Aug, [facility] [address] [id number] [address] [place] [id number] Aug, [facility] [address] [id number] [address] [place] [address], [place] [id number] Aug, [facility] [address] [id number] [address] [place] [address], [place] [id number] Aug, [facility] [address] [id number] [address] [place] [address], [place] [id number] Aug, [facility] [address] [id number] [address] [place] [id number] Aug, [facility] [address] [id number] [address] [place] [address], [place] [id number] Aug, [facility] [address] [id number] [address] [place] [address], [place] [id number] Aug, [facility] [address] [id number] [address] [place] [address], [place] [id number] Jul, [facility] [address] [id number] [address] [place] [address], [place] [id number] Jul, [facility] [address] [id number] [address] [place] [address], [place] [id number] Jul, [facility] [address] [id number] [address] [place] [address], [place] [id number] Jul, [facility] [address] [id number] [address] [place] [address], [place] [id number] Jul, [facility] [address] [id number] [address] [place] [address], [place] [id number] Jul, [facility] [address] [id number] [address] [place] [address], [place] [id number] Jul, [facility] [address] [id number] [address] [place] [address], [place] [address] Jul, [facility] [address] [id number] [address] [place] [address], [place] [id number] Jun, [facility] [address] [id number] [address] [place] [address], [place] [id number] Jun, [facility] [address] [id number] [address] [place] [address], [place] [id number] Jun, [facility] [address] [id number] [address] [place] [address], [place] [id number] Jun, [facility] [facility] [address] [id number] [address] [place] [address], [place] [phone] May, [facility] [address] [id number] [address] [place] [address], [place] [id number] May, [facility] [address] [id number] [address] [place] [address], [place] [id number] May, [facility] [address] [id number] [address] [place] [address], [place] [id number] May, [facility] [address] [id number] [address] [place] [address], [place] [id number] May, [facility] [address] [facility] [id number] [address] [address] Apr, [facility] [address] [facility] [id number] [address] [place] [id number] Apr, IMMUNIZATIONS No Known Immunizations SOCIAL HISTORY Never Assessed REASON FOR VISIT PLAN OF CARE VITAL SIGNS Height 64.5 in 2014-05-27 Weight 154.12 lbs 2014-05-27 Temperature 97.5 degrees Fahrenheit 2014-05-27 Heart Rate 98 bpm 2014-05-27 Respiratory Rate 28 2014-05-27 Blood pressure systolic 124 mmHg 2014-05-27 Blood pressure diastolic 98 mmHg 2014-05-27 MEDICATIONS Unknown Medications RESULTS No Results PROCEDURES [...]
--- OUTSIDE RECORDS SUMMARY | 2019-11-11 19:06 | XMS REPORT ---
Author Author [facility] Address [address] [place] [address] Care Team Providers Care Slackline Operator Name Role Phone SKYLAR THOMPSON Unavailable PROBLEMS Type Condition ICD9-CM Code LMA34-KX Code Onset Dates Condition S tatus SNOMED Code Problem Hyperlipidemia E78.5 Active 68190 004 Problem Hypertension I10 Active 0322093 3 Problem Chronic post-traumatic stress disorder (PTSD) F43. 12 Active 583360035 Problem Bipolar 2 disorder F31.81 Active 8 3340897 Problem PTSD (post-traumatic stress disorder) F43.10 Active 61140567 Problem Social anxiety disorder F40.10 Active 64226540 Problem Stage 3 chronic kidney disease N18.3 Active 045754896 Problem Attention deficit disorder F90.0 Act shalom 638438591 Problem Other chronic pain G89.29 Active 8 9606042 Problem Lumbago with sciatica, left side M54.42 Active 919241257 Problem Lumbago with sciatica, right side M54.41 Active [id number] Problem Pure hypercholesterolemia E78.00 Acti ve 897602364 ALLERGIES No Information ENCOUNTERS Encounter Location Date Diagnosis [facility] [address] [facility] [id number] [address] [place] [phone] October, [facility] [address] [facility] [id number] [address] [place] [phone] Oct, [facility] [address] [facility] [id number] [address] [place] [phone] Oct, Chronic post-traumatic stres s disorder (PTSD) F43.12 [facility] [address] [facility] [id number] [address] [place] [phone] Oct, Attention deficit disorder F 90.0 [facility] [address] [facility] [id number] [address] [place] [phone] 09 Oct, 2019 Stage 3 chronic kidney disea se N18.3 [facility] [address] [facility] [id number] [address] [place] [phone] 09 Oct, 2019 Bipolar 2 disorder F31.81 ; Attention deficit disorder F90.0 ; Social anxiety disorder F40.10 and Chronic post-traumatic stress disorder (PTSD) F43.12 [facility] [address] [facility] [id number] [address] [place] [phone] Aug, Attention deficit disorder F 90.0 [facility] [address] [facility] [id number] [address] [place] [phone] 02 Sep, 2019 Stage 3 chronic kidney disea se N18.3 [facility] [address] [facility] [id number] [address] [place] [phone] 28 Aug, 2019 Hypertension I10 ; Hyperlipi demia E78.5 and Other chronic pain G89.29 [place] [address] [facility] [id number] [address] [place] [phone] 14 Aug, 2019 [facility] [address] [facility] [id number] [address] [place] [phone] 13 Aug, 2019 Attention deficit disorder F 90.0 [facility] [address] [facility] [id number] [address] [place] [phone] Jul, [place] [address] [facility] [id number] [address] [place] [phone] Jul, Bipolar 2 disorder F31.81 [facility] [address] [facility] [id number] [address] [place] [address] Jul, Bipolar 2 disorder F31.81 ; Attention deficit disorder F90.0 ; Chronic post-traumatic stress disorder (PTSD) F43.12 and Social anxiety disorder F40.10 [facility] [address] [facility] [id number] [address] [place] [address] Jun, Bipolar 2 disorder F31.81 [place] [address] [place] [id number] [address] [place] [phone] May, Bipolar 2 disorder F31.81 [facility] [address] [place] [id number] [address] [place] [phone] May, Bipolar 2 disorder F31.81 ; Attention deficit disorder F90.0 ; Social anxiety disorder F40.10 and PTSD (post-traumatic stress disorder) F43.10 [facility] [id number] [place] [phone] Apr, Bipolar 2 disorder F31.81 [facility] [address] [place] [id number] [address] [place] [phone] Apr, Encounter for immunization Z 23 [place] [address] [place] [id number] [place] [phone] Mar, Bipolar 2 disorder F31.81 [place] [address] [address] Jan, Bipolar 2 disorder F31.81 [facility] [address] [place] [id number] [address] [place] [address] Jan, Lumbago with sciatica, left side M54.42 and Lumbago with sciatica, right side M54.41 [place] [address] [place] [id number] [address] [place] [address] Jan, Bipolar 2 disorder F31.81 ; Attention deficit disorder F90.0 ; Social anxiety disorder F40.10 and Chronic post-traumatic stress disorder (PTSD) F43.12 [place] [address] [place] [address] Dec, Hypertension I10 and Impacte d cerumen of left ear H61.22 [place] [address] [place] [id number] [address] [place] [address] Dec, Bipolar 2 disorder F31.81 [place] [address] [place] [id number] [address] [place] [address] Dec, [place] [address] [place] [address] Dec, Bipolar 2 disorder F31.81 [facility] [address] [place] [id number] [address] [place] [address] Oct, Bipolar 2 disorder F31.81 [facility] [address] [facility] [id number] [address] [place] [address] Oct, Bipolar 2 disorder F31.81 ; Attention deficit disorder F90.0 ; Social anxiety disorder F40.10 and Chronic post-traumatic stress disorder (PTSD) F43.12 [facility] [address] [facility] [id number] [address] [place] [address] Aug, Lumbago with sciatica, left side M54.42 and Lumbago with sciatica, right side M54.41 [place] [address] [place] [id number] [address] [place] [address] Aug, Bipolar 2 disorder F31.81 [place] [address] [place] [id number] [address] [place] [address] Aug, Bipolar 2 disorder F31.81 [place] [address] [place] [id number] [place] [address] Aug, Bipolar 2 disorder F31.81 ; Attention deficit disorder F90.0 ; Social anxiety disorder F40.10 and PTSD (post-traumatic stress disorder) F43.10 [facility] [address] [place] [id number] [address] [place] [address] Jul, [facility] [address] [facility] [id number] [address] [place] [address] Jun, Nasal congestion R09.81 ; Ac ping nonintractable headache, unspecified headache type R51 and Viral upper respiratory tract infection J06.9 [facility] [address] [facility] [id number] [address] [place] [address] Jun, [place] [address] [place] [id number] [place] [phone] May, [facility] [address] [address] May, [facility] [address] [address] May, Bipolar 2 disorder F31.81 ; Social anxiety disorder F40.10 ; Chronic post-traumatic stress disorder (PTSD) F43.12 ; Attention deficit disorder F90.0 and Encounter for immunization Z23 [facility] [address] [address] Apr, [facility] [address] [address] Apr, Body aches R52 and Acute chely opharyngitis J00 [place] [address] [address] 24 Mar, 2018 Pure hypercholesterolemia E7 8.00 and Exertional chest pain R07.9 [place] [address] [address] Mar, Hyperlipidemia E78.5 ; Hyper tension I10 and Routine adult health maintenance Z00.00 [place] [address] [address] 20 Mar, 2018 Hypertension I10 ; Hyperlipi demia E78.5 ; Chest pain, exertional R07.9 and Routine adult health maintenance Z00.00 [place] [address] [address] 17 Mar, 2018 [place] [address] [address] Mar, Lumbago with sciatica, left side M54.42 and Lumbago with sciatica, right side M54.41 [place] [address] [address] Jan, [place] [address] [address] Dec, Bipolar 2 disorder F31.81 ; Social anxiety disorder F40.10 and Chronic post-traumatic stress disorder (PTSD) F43.12 [facility] [address] [id number] [address] [place] [address] Dec, [facility] [address] [id number] [address] [place] [phone] Dec, [facility] [address] [id number] [address] [place] [address] Dec, Upper respiratory tract infe ction, unspecified type J06.9 [facility] [address] [id number] [address] [place] [address] October, [facility] [address] [id number] [address] [place] [address] Oct, Bipolar 2 disorder F31.81 ; Attention deficit disorder F90.0 ; Social anxiety disorder F40.10 and Chronic post-traumatic stress disorder (PTSD) F43.12 [facility] [address] [id number] [address] [place] [phone] Oct, [facility] [address] [id number] [address] [place] [address] Oct, [facility] [address] [id number] [address] [place] [phone] Aug, [facility] [address] [facility] [id number] [address] [place] [phone] Aug, [facility] [address] [id number] [address] [place] [phone] Jul, Strain of lumbar region, ini tial encounter S39.012A [facility] [address] [id number] [address] [place] [phone] Jul, Lumbago with sciatica, left side M54.42 and Lumbago with sciatica, right side M54.41 [facility] [address] [id number] [address] [place] [address] Jul, Low back pain M54.5 and Othe r chronic pain G89.29 [facility] [address] [facility] [id number] [address] [place] [phone] Jul, [facility] [address] [facility] [id number] [address] [place] [address] Jul, Bipolar 2 disorder F31.81 ; Attention deficit disorder F90.0 and Social anxiety disorder F40.10 [facility] [address] [place] [id number] [place] [phone] Jun, [facility] [address] [place] [id number] [place] [phone] May, [facility] [address] [place] [id number] [place] [address] Apr, Bipolar 2 disorder F31.81 ; Attention deficit disorder F90.0 ; Social anxiety disorder F40.10 and Chronic post-traumatic stress disorder (PTSD) F43.12 [facility] [address] [id number] Apr, [facility] [address] [place] [id number] [place] [address] Apr, Hyperlipidemia E78.5 [facility] [address] [facility] [id number] [address] [place] [address] Mar, Encounter for immunization Z 23 and Tinea cruris B35.6 [facility] [address] [facility] [id number] [address] [place] [address] Mar, [facility] [address] [facility] [id number] [address] [place] [phone] Jan, [facility] [address] [facility] [id number] [address] [place] [phone] Dec, [facility] [address] [facility] [id number] [address] [place] [address] Dec, [place] [address] [id number] [address] [place] [address] Dec, Bipolar 2 disorder F31.81 ; Social anxiety disorder F40.10 and Attention deficit disorder F90.0 [facility] [address] [id number] [address] [place] [phone] Dec, [facility] [address] [id number] [address] [place] [address] Dec, Hypertension I10 [facility] [address] [id number] [address] [place] [phone] October, [facility] [address] [id number] [address] [place] [phone] Oct, [facility] [address] [facility] [id number] [address] [place] [phone] Oct, Nasal congestion R09.81 [facility] [address] [facility] [id number] [address] [place] [address] Oct, Social anxiety disorder F40. 10 ; Bipolar 2 disorder F31.81 and Attention deficit disorder F90.0 [facility] [address] [facility] [id number] [address] [place] [phone] Aug, [facility] [address] [facility] [id number] [address] [place] [phone] Aug, [facility] [address] [facility] [id number] [address] [place] [address] Jul, Nasal congestion R09.81 [facility] [address] [facility] [id number] [address] [place] [address] Jul, [facility] [address] [facility] [id number] [address] [place] [phone] Jun, Bipolar 2 disorder F31.81 ; Attention deficit disorder F90.0 ; Social anxiety disorder F40.10 and Chronic post-traumatic stress disorder (PTSD) F43.12 [facility] [address] [facility] [id number] [address] [place] [phone] Jun, [facility] [address] [facility] [id number] [address] [place] [address] May, [facility] [address] [facility] [id number] [address] [place] [address] Apr, Attention deficit disorder F 90.0 [facility] [address] [place] [id number] [address] [place] [address] Apr, Urinary hesitancy R39.11 ; H yperlipidemia E78.5 and Encounter for immunization Z23 [facility] [address] [facility] [id number] [address] [place] [address] Apr, [facility] [address] [facility] [id number] [address] [place] [address] Mar, [facility] [address] [place] [id number] [place] [address] Jan, [facility] [address] [place] [id number] [address] [place] [phone] Dec, [facility] [address] [facility] [id number] [address] [place] [address] Dec, [facility] [address] [place] [id number] [address] [place] [address] Dec, Bipolar 2 disorder F31.81 ; Attention deficit disorder F90.0 ; Posttraumatic stress disorder F43.10 and Social anxiety disorder F40.10 [facility] [address] [facility] [id number] [address] [place] [phone] Dec, Scabies exposure Z20.89 and Scabies B86 [facility] [address] [place] [id number] [address] [place] [address] Dec, [facility] [address] [place] [id number] [address] [place] [phone] Dec, Hypertension I10 and Gastroe sophageal reflux disease without esophagitis K21.9 [facility] [address] [place] [id number] [address] [place] [address] October, [facility] [address] [facility] [id number] [address] [place] [phone] October, [facility] [address] [facility] [id number] [address] [place] [address] Oct, Bipolar 2 disorder F31.81 ; Posttraumatic stress disorder F43.10 ; Attention deficit disorder F90.0 and Social anxiety disorder F40.10 [facility] [address] [facility] [id number] [address] [place] [phone] Oct, [facility] [address] [facility] [id number] [address] [place] [address] Oct, Hypertension I10 and Nasal c ongestion R09.81 [facility] [address] [facility] [id number] [address] [place] [phone] Aug, [facility] [address] [facility] [id number] [address] [place] [phone] Aug, [facility] [address] [facility] [id number] [address] [place] [address] Aug, [facility] [address] [facility] [id number] [address] [place] [address] Aug, [facility] [address] [facility] [id number] [address] [place] [phone] Aug, [facility] [address] [facility] [id number] [address] [place] [phone] Aug, Hypertension I10 and Tremor R25.1 [facility] [address] [facility] [id number] [address] [place] [address] Aug, Bipolar 2 disorder F31.81 ; Posttraumatic stress disorder F43.10 ; Attention deficit disorder F90.0 and Social anxiety disorder F40.10 [facility] [address] [facility] [id number] [address] [place] [address] Jul, [facility] [address] [id number] [address] [place] [address] Jul, Hyperlipidemia E78.5 [facility] [address] [facility] [id number] [address] [place] [address] Jul, Hypertension I10 and Hyperli pidemia E78.5 [facility] [address] [id number] [address] [place] [address] Jun, Bipolar 2 disorder F31.81 ; Posttraumatic stress disorder F43.10 ; Attention deficit disorder F90.0 and Social anxiety disorder F40.10 [facility] [address] [id number] [address] [place] [phone] May, [facility] [address] [facility] [id number] [address] [place] [address] May, [facility] [address] [facility] [id number] [address] [place] [address] Apr, Bipolar 2 disorder F31.81 ; Posttraumatic stress disorder F43.10 ; Attention deficit disorder F90.0 and Social phobia F40.10 [facility] [address] [id number] [address] [place] [address] Apr, Bipolar 2 disorder F31.81 ; Posttraumatic stress disorder F43.10 and Attention deficit disorder F90.0 [facility] [address] [facility] [id number] [address] [place] [phone] Apr, [facility] [address] [id number] [address] [place] [phone] Apr, [facility] [address] [facility] [id number] [address] [place] [address] Apr, [facility] [address] [id number] [address] [place] [phone] Mar, [facility] [address] [id number] [address] [place] [phone] Mar, [facility] [address] [facility] [id number] [address] [place] [phone] Jan, [facility] [address] [facility] [id number] [address] [place] [address] Jan, [facility] [address] [facility] [id number] [address] [place] [phone] Jan, Bipolar II disorder 296.89 ; Posttraumatic stress disorder 309.81 ; Social phobia 300.23 and Attention deficit disorder of childhood without mention of hyperactivity 314.00 [facility] [address] [facility] [id number] [address] [place] [address] Jan, Other and unspecified bipola r disorders 296.89 ; Posttraumatic stress disorder 309.81 and Attention deficit disorder of childhood without mention of hyperactivity 314.00 [facility] [address] [facility] [id number] [address] [place] [address] Jan, [facility] [address] [facility] [id number] [address] [place] [phone] Dec, Other and unspecified bipola r disorders 296.89 ; Posttraumatic stress disorder 309.81 and Attention deficit disorder of childhood without mention of hyperactivity 314.00 [facility] [address] [facility] [id number] [address] [place] [address] Dec, Migraines 346.90 [facility] [address] [facility] [id number] [address] [place] [address] Dec, Other and unspecified bipola r disorders 296.89 ; Posttraumatic stress disorder 309.81 and Attention deficit disorder of childhood without mention of hyperactivity 314.00 [facility] [address] [facility] [id number] [address] [place] [phone] Dec, [facility] [address] [facility] [id number] [address] [place] [phone] Dec, Bipolar II disorder 296.89 ; Social phobia 300.23 ; Posttraumatic stress disorder 309.81 and Attention deficit disorder of childhood without mention of hyperactivity 314.00 [facility] [address] [facility] [id number] [address] [place] [phone] Dec, Other and unspecified bipola r disorders 296.89 ; Posttraumatic stress disorder 309.81 and Attention deficit disorder of childhood without mention of hyperactivity 314.00 [facility] [address] [id number] [address] [place] [phone] October, Other and unspecified bipola r disorders 296.89 ; Posttraumatic stress disorder 309.81 and Attention deficit disorder of childhood without mention of hyperactivity 314.00 [facility] [address] [id number] [address] [place] [phone] October, [facility] [address] [id number] [address] [place] [phone] October, [facility] [address] [id number] [address] [place] [phone] October, [facility] [address] [id number] [address] [place] [phone] October, [facility] [address] [facility] [id number] [address] [place] [phone] October, Attention deficit disorder o f childhood without mention of hyperactivity 314.00 ; Posttraumatic stress disorder 309.81 ; Social phobia 300.23 and Other and unspecified bipolar disorders 296.89 [facility] [address] [id number] [address] [place] [phone] Oct, [facility] [address] [id number] [address] [place] [phone] Oct, [facility] [address] [id number] [address] [place] [phone] Aug, [facility] [address] [id number] [address] [place] [phone] Aug, [facility] [address] [id number] [address] [place] [phone] Aug, [facility] [address] [id number] [address] [place] [id number] Aug, [facility] [address] [id number] [address] [place] [phone] 17 Aug, 2014 [facility] [address] [id number] [facility] [place] [address] 17 Aug, 2014 [facility] [address] [id number] [facility] [place] [address] 17 Aug, 2014 [facility] [address] [id number] [facility] [place] [address] 17 Aug, 2014 [facility] [address] [id number] [address] [place] [address], [place] [address] 17 Aug, 2014 [facility] [address] [id number] [address] [place] [address], [place] [address] 17 Aug, 2014 [facility] [address] [id number] [address] [place] [address], [place] [address] 13 Aug, 2014 [facility] [address] [id number] [address] [place] [address], [place] [address] 13 Aug, 2014 [facility] [address] [id number] [address] [place] [address], [place] [address] 12 Aug, 2014 [facility] [address] [id number] [address] [place] [address], [place] [address] Aug, [facility] [address] [id number] [address] [place] [address], [place] [address] Aug, [facility] [address] [id number] [address] [place] [address], [place] [address] Aug, [facility] [address] [id number] [address] [place] [address], [place] [address] Aug, [facility] [address] [id number] [address] [place] [address], [place] [address] Aug, [facility] [address] [id number] [address] [place] [address], [place] [address] Aug, [facility] [address] [id number] [address] [place] [address], [place] [address] Aug, [facility] [address] [id number] [address] [place] [address], [place] [address] Aug, [facility] [address] [id number] [address] [place] [address], [place] [address] Aug, [facility] [address] [id number] [address] [place] [address], [place] [address] Aug, [facility] [address] [id number] [address] [place] [address], [place] [address] Aug, [facility] [address] [id number] [address] [place] [address], [place] [address] Aug, [facility] [address] [id number] [address] [place] [address], [place] [address] Aug, [facility] [address] [id number] [address] [place] [address], [place] [address] Aug, [facility] [address] [id number] [address] [place] [address], [place] [address] Aug, [facility] [address] [id number] [address] [place] [address], [place] [address] Aug, [facility] [address] [id number] [address] [place] [address], [place] [address] Aug, [facility] [address] [id number] [address] [place] [address], [place] [address] Jul, [facility] [address] [id number] [address] [place] [address], [place] [address] Jul, [facility] [address] [id number] [address] [place] [address], [place] [address] Jul, [facility] [address] [id number] [address] [place] [address], [place] [address] Jul, [facility] [address] [id number] [address] [place] [address], [place] [address] Jul, [facility] [address] [id number] [address] [place] [address], [place] [address] Jul, [facility] [address] [id number] [address] [place] [phone] Jul, [facility] [address] [id number] [address] [place] [id number] Jul, [facility] [address] [id number] [address] [place] [phone] Jun, [facility] [address] [id number] [address] [place] [phone] Jun, [facility] [address] [id number] [address] [place] [phone] Jun, [facility] [address] [id number] [address] [place] [phone] Jun, [facility] [address] [id number] [address] [place] [id number] May, [facility] [address] [id number] [address] [place] [id number] May, [facility] [address] [id number] [address] [place] [id number] May, [facility] [address] [id number] [address] [place] [id number] May, [facility] [address] [id number] [address] [place] [phone] May, [facility] [address] [id number] [address] [place] [phone] Apr, [facility] [address] [id number] [address] [place] [phone] Apr, IMMUNIZATIONS No Known Immunizations SOCIAL HISTORY Never Assessed REASON FOR VISIT PLAN OF CARE VITAL SIGNS MEDICATIONS Unknown Medications RESULTS No Results PROCEDURES Procedure Date Ordered Result Body Site PSYTX PT&/FAMILY 45 MINUTES Aug 22, 2014 INSTRUCTIONS MEDICATIONS ADMINISTERED No Known Medications [...]
--- OUTSIDE RECORDS SUMMARY | 2019-11-11 19:07 | XMS REPORT ---
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 12 Active 980617221 Problem Other chronic pain G89.29 Active 8 4874429 Problem Lumbago with sciatica, left side M54.42 Active 400436830 Problem Lumbago with sciatica, right side M54.41 Active [id number] ALLERGIES No Information ENCOUNTERS Encounter Location Date Diagnosis [facility] [address] [id number] [address] [place] [address] May, [facility] [address] [id number] [address] [place] [address] Jan, Bipolar 2 disorder F31.81 ; Attention deficit disorder F90.0 ; Social anxiety disorder F40.10 and Chronic post-traumatic stress disorder (PTSD) F43.12 [facility] [address] [id number] [address] [place] [address] Dec, Hypertension I10 and Impacte d cerumen of left ear H61.22 [facility] [address] [id number] [address] [place] [address] Dec, Bipolar 2 disorder F31.81 [facility] [address] [facility] [id number] [address] [place] [address] Dec, [facility] [address] [facility] [id number] [address] [place] [address] Dec, Bipolar 2 disorder F31.81 [facility] [address] [facility] [id number] [address] [place] [address] Oct, Bipolar 2 disorder F31.81 [facility] [address] [facility] [id number] [address] [place] [address] Oct, Bipolar 2 disorder F31.81 ; Attention deficit disorder F90.0 ; Social anxiety disorder F40.10 and Chronic post-traumatic stress disorder (PTSD) F43.12 [facility] [address] [facility] [id number] [address] [place] [address] Aug, Lumbago with sciatica, left side M54.42 and Lumbago with sciatica, right side M54.41 [facility] [address] [facility] [id number] [address] [place] [address] Aug, Bipolar 2 disorder F31.81 [facility] [address] [facility] [id number] [address] [place] [address] Aug, Bipolar 2 disorder F31.81 [facility] [address] [facility] [id number] [address] [place] [address] Aug, Bipolar 2 disorder F31.81 ; Attention deficit disorder F90.0 ; Social anxiety disorder F40.10 and PTSD (post-traumatic stress disorder) F43.10 [facility] [address] [facility] [id number] [address] [place] [address] Jul, [facility] [address] [facility] [id number] [address] [place] [address] Jun, Nasal congestion R09.81 ; Ac capitan grande nonintractable headache, unspecified headache type R51 and Viral upper respiratory tract infection J06.9 [facility] [address] [id number] [address] [place] [address] 18 Jun, 2018 [facility] [address] [facility] [id number] [address] [place] [address] May, [facility] [id number] [place] [address] May, [facility] [address] [address] May, Bipolar 2 disorder F31.81 ; Social anxiety disorder F40.10 ; Chronic post-traumatic stress disorder (PTSD) F43.12 ; Attention deficit disorder F90.0 and Encounter for immunization Z23 [facility] [address] [address] 12 Apr, 2018 [facility] [id number] [place] [address] Apr, Body aches R52 and Acute chely opharyngitis J00 [facility] [address] [id number] [address] [place] [address] 24 Mar, 2018 Pure hypercholesterolemia E7 8.00 and Exertional chest pain R07.9 [place] [address] [id number] [address] [place] [address] Mar, Hyperlipidemia E78.5 ; Hyper tension I10 and Routine adult health maintenance Z00.00 [place] [address] [id number] [address] [place] [address] 20 Mar, 2018 Hypertension I10 ; Hyperlipi demia E78.5 ; Chest pain, exertional R07.9 and Routine adult health maintenance Z00.00 [facility] [address] [id number] [address] [place] [address] 17 Mar, 2018 [place] [id number] [place] [address] 04 Mar, 2018 Lumbago with sciatica, left side M54.42 and Lumbago with sciatica, right side M54.41 [facility] [address] [place] [address] Jan, [facility] [address] [id number] [address] [place] [address] Dec, Bipolar 2 disorder F31.81 ; Social anxiety disorder F40.10 and Chronic post-traumatic stress disorder (PTSD) F43.12 [facility] [address] [id number] [address] [place] [address] Dec, [facility] [address] [id number] [address] [place] [address] Dec, [facility] [address] [id number] [address] [place] [address] Dec, Upper respiratory tract infe ction, unspecified type J06.9 [facility] [address] [facility] [id number] [address] [place] [address] October, [facility] [address] [facility] [id number] [address] [place] [address] Oct, Bipolar 2 disorder F31.81 ; Attention deficit disorder F90.0 ; Social anxiety disorder F40.10 and Chronic post-traumatic stress disorder (PTSD) F43.12 [facility] [address] [facility] [id number] [address] [place] [address] Oct, [facility] [address] [id number] [address] [place] [address] Oct, [facility] [address] [facility] [id number] [address] [place] [address] Aug, [facility] [address] [facility] [id number] [address] [place] [address] Aug, [facility] [address] [facility] [id number] [address] [place] [address] Jul, Strain of lumbar region, ini tial encounter S39.012A [facility] [address] [facility] [id number] [address] [place] [address] Jul, Lumbago with sciatica, left side M54.42 and Lumbago with sciatica, right side M54.41 [facility] [address] [address] Jul, Low back pain M54.5 and Othe r chronic pain G89.29 [facility] [address] [address] Jul, [place] [address] [address] Jul, Bipolar 2 disorder F31.81 ; Attention deficit disorder F90.0 and Social anxiety disorder F40.10 [place] [address] [address] Jun, [place] [address] [address] May, [place] [address] [address] Apr, Bipolar 2 disorder F31.81 ; Attention deficit disorder F90.0 ; Social anxiety disorder F40.10 and Chronic post-traumatic stress disorder (PTSD) F43.12 [place] [address] [address] 13 Apr, 2017 [place] [address] [address] Apr, Hyperlipidemia E78.5 [facility] [address] [address] 27 Mar, 2017 Encounter for immunization Z 23 and Tinea cruris B35.6 [place] [address] [address] 15 Mar, 2017 [place] [address] [address] Jan, [place] [address] [address] Dec, [facility] [address] [facility] [id number] [address] [place] [address] Dec, [facility] [address] [facility] [id number] [address] [place] [address] Dec, Bipolar 2 disorder F31.81 ; Social anxiety disorder F40.10 and Attention deficit disorder F90.0 [facility] [address] [facility] [id number] [address] [place] [address] Dec, [facility] [address] [facility] [id number] [address] [place] [address] Dec, Hypertension I10 [facility] [address] [facility] [id number] [address] [place] [address] October, [facility] [address] [facility] [id number] [address] [place] [address] Oct, [facility] [address] [facility] [id number] [address] [place] [address] Oct, Nasal congestion R09.81 [facility] [address] [facility] [id number] [address] [place] [address] Oct, Social anxiety disorder F40. 10 ; Bipolar 2 disorder F31.81 and Attention deficit disorder F90.0 [facility] [address] [facility] [id number] [address] [place] [address] Aug, [facility] [address] [facility] [id number] [address] [place] [address] Aug, [facility] [address] [facility] [id number] [address] [place] [address] Jul, Nasal congestion R09.81 [facility] [address] [facility] [id number] [address] [place] [address] Jul, [facility] [address] [facility] [id number] [address] [place] [address] Jun, Bipolar 2 disorder F31.81 ; Attention deficit disorder F90.0 ; Social anxiety disorder F40.10 and Chronic post-traumatic stress disorder (PTSD) F43.12 [facility] [address] [address] Jun, [facility] [address] [id number] [address] [place] [address] May, [facility] [address] [address] Apr, Attention deficit disorder F 90.0 [place] [address] [address] Apr, Urinary hesitancy R39.11 ; H yperlipidemia E78.5 and Encounter for immunization Z23 [facility] [address] [address] Apr, [facility] [address] [address] Mar, [facility] [address] [address] Jan, [facility] [address] [address] Dec, [facility] [address] [address] Dec, [facility] [address] [address] Dec, Bipolar 2 disorder F31.81 ; Attention deficit disorder F90.0 ; Posttraumatic stress disorder F43.10 and Social anxiety disorder F40.10 [facility] [id number] [place] [address] Dec, Scabies exposure Z20.89 and Scabies B86 [facility] [address] [id number] [address] [place] [address] Dec, [facility] [address] [place] [address] Dec, Hypertension I10 and Gastroe sophageal reflux disease without esophagitis K21.9 [facility] [address] [facility] [id number] [address] [place] [address] October, [facility] [address] [facility] [id number] [address] [place] [address] October, [facility] [address] [facility] [id number] [address] [place] [address] Oct, Bipolar 2 disorder F31.81 ; Posttraumatic stress disorder F43.10 ; Attention deficit disorder F90.0 and Social anxiety disorder F40.10 [facility] [address] [facility] [id number] [address] [place] [address] Oct, [facility] [id number] [place] [address] Oct, Hypertension I10 and Nasal c ongestion R09.81 [facility] [address] [facility] [id number] [address] [place] [address] Aug, [facility] [address] [facility] [id number] [address] [place] [address] Aug, [facility] [address] [facility] [id number] [address] [place] [address] Aug, [facility] [address] [facility] [id number] [address] [place] [address] Aug, [facility] [address] [facility] [id number] [address] [place] [address] Aug, [facility] [address] [facility] [id number] [address] [place] [address] Aug, Hypertension I10 and Tremor R25.1 [facility] [address] [facility] [id number] [address] [place] [address] Aug, Bipolar 2 disorder F31.81 ; Posttraumatic stress disorder F43.10 ; Attention deficit disorder F90.0 and Social anxiety disorder F40.10 [facility] [address] [facility] [id number] [address] [place] [address] Jul, [facility] [address] [facility] [id number] [address] [place] [address] Jul, Hyperlipidemia E78.5 [facility] [address] [facility] [id number] [address] [place] [address] Jul, Hypertension I10 and Hyperli pidemia E78.5 [facility] [address] [id number] [address] [place] [address] Jun, Bipolar 2 disorder F31.81 ; Posttraumatic stress disorder F43.10 ; Attention deficit disorder F90.0 and Social anxiety disorder F40.10 [facility] [address] [facility] [id number] [address] [place] [address] May, [facility] [address] [facility] [id number] [address] [place] [address] May, [facility] [address] [facility] [id number] [address] [place] [address] Apr, Bipolar 2 disorder F31.81 ; Posttraumatic stress disorder F43.10 ; Attention deficit disorder F90.0 and Social phobia F40.10 [facility] [address] [facility] [id number] [address] [place] [address] Apr, Bipolar 2 disorder F31.81 ; Posttraumatic stress disorder F43.10 and Attention deficit disorder F90.0 [facility] [address] [facility] [id number] [address] [place] [address] Apr, [facility] [address] [facility] [id number] [address] [place] [address] Apr, [facility] [address] [facility] [id number] [address] [place] [address] Apr, [facility] [address] [facility] [id number] [address] [place] [address] Mar, [facility] [address] [facility] [id number] [address] [place] [address] Mar, [facility] [address] [facility] [id number] [address] [place] [address] Jan, [facility] [address] [facility] [id number] [address] [place] [address] Jan, [facility] [address] [facility] [id number] [address] [place] [address] Jan, Bipolar II disorder 296.89 ; Posttraumatic stress disorder 309.81 ; Social phobia 300.23 and Attention deficit disorder of childhood without mention of hyperactivity 314.00 [facility] [address] [facility] [id number] [address] [place] [address] Jan, Other and unspecified bipola r disorders 296.89 ; Posttraumatic stress disorder 309.81 and Attention deficit disorder of childhood without mention of hyperactivity 314.00 [facility] [address] [facility] [id number] [address] [place] [address] Jan, [facility] [address] [facility] [id number] [address] [place] [address] Dec, Other and unspecified bipola r disorders 296.89 ; Posttraumatic stress disorder 309.81 and Attention deficit disorder of childhood without mention of hyperactivity 314.00 [facility] [address] [facility] [id number] [address] [place] [address] Dec, Migraines 346.90 [facility] [address] [facility] [id number] [address] [place] [address] Dec, Other and unspecified bipola r disorders 296.89 ; Posttraumatic stress disorder 309.81 and Attention deficit disorder of childhood without mention of hyperactivity 314.00 [facility] [address] [facility] [id number] [address] [place] [address] Dec, [facility] [address] [facility] [id number] [address] [place] [address] Dec, Bipolar II disorder 296.89 ; Social phobia 300.23 ; Posttraumatic stress disorder 309.81 and Attention deficit disorder of childhood without mention of hyperactivity 314.00 [facility] [address] [id number] [address] [place] [address] Dec, Other and unspecified bipola r disorders 296.89 ; Posttraumatic stress disorder 309.81 and Attention deficit disorder of childhood without mention of hyperactivity 314.00 [facility] [address] [id number] [address] [place] [address] October, Other and unspecified bipola r disorders 296.89 ; Posttraumatic stress disorder 309.81 and Attention deficit disorder of childhood without mention of hyperactivity 314.00 [facility] [address] [id number] [address] [place] [address] October, [facility] [address] [id number] [address] [place] [address] October, [facility] [address] [id number] [address] [place] [address] October, [facility] [address] [id number] [address] [place] [address] October, [facility] [address] [id number] [address] [place] [address] October, Attention deficit disorder o f childhood without mention of hyperactivity 314.00 ; Posttraumatic stress disorder 309.81 ; Social phobia 300.23 and Other and unspecified bipolar disorders 296.89 [facility] [address] [id number] [address] [place] [address] Oct, [facility] [address] [id number] [address] [place] [address] Oct, [facility] [address] [id number] [address] [place] [address] Aug, [facility] [address] [id number] [address] [place] [address] Aug, [facility] [address] [facility] [id number] [address] [place] [address] Aug, [facility] [place] [facility] [address] [id number] [facility] [place] [address] 24 Aug, 2014 [facility] [place] [facility] [address] [id number] [facility] [place] [address] 17 Aug, 2014 [facility] [place] [facility] [address] [id number] [facility] [place] [address] 17 Aug, 2014 [facility] [place] [facility] [address] [id number] [facility] [place] [address] 17 Aug, 2014 [facility] [place] [facility] [address] [id number] [facility] [place] [address] 17 Aug, 2014 [facility] [place] [facility] [address] [id number] [facility] [place] [address] 17 Aug, 2014 [facility] [place] [facility] [address] [id number] [address] [place] [address], [place] [address] 17 Aug, 2014 [facility] [place] [facility] [address] [id number] [address] [place] [address], [place] [address] 13 Aug, 2014 [facility] [place] [facility] [address] [id number] [address] [place] [address], [place] [address] 13 Aug, 2014 [facility] [place] [facility] [address] [id number] [address] [place] [address], [place] [address] 12 Aug, 2014 [facility] [place] [facility] [address] [id number] [address] [place] [address], [place] [address] 12 Aug, 2014 [facility] [address] [id number] [address] [place] [address], [place] [address] 12 Aug, 2014 [facility] [address] [id number] [address] [place] [address], [place] [address] 12 Aug, 2014 [facility] [address] [id number] [address] [place] [address], [place] [address] 12 Aug, 2014 [facility] [address] [id number] [address] [place] [address], [place] [address] 12 Aug, 2014 [facility] [address] [id number] [address] [place] [address], [place] [address] Aug, [facility] [address] [id number] [address] [place] [address], [place] [address] Aug, [facility] [address] [id number] [address] [place] [address], [place] [address] Aug, [facility] [address] [id number] [address] [place] [address], [place] [address] Aug, [facility] [address] [id number] [address] [place] [address], [place] [address] Aug, [facility] [address] [id number] [address] [place] [address], [place] [address] Aug, [facility] [address] [id number] [address] [place] [address], [place] [address] Aug, [facility] [address] [id number] [address] [place] [address], [place] [address] Aug, [facility] [address] [id number] [address] [place] [address], [place] [address] Aug, [facility] [address] [id number] [address] [place] [address], [place] [address] Aug, [facility] [address] [id number] [address] [place] [address], [place] [address] Aug, [facility] [address] [id number] [address] [place] [address], [place] [address] Aug, [facility] [address] [id number] [address] [place] [address], [place] [address] Jul, [facility] [address] [id number] [address] [place] [address], [place] [id number] Jul, [facility] [address] [id number] [address] [place] [address], [place] [id number] Jul, [facility] [address] [id number] [address] [place] [address], [place] [id number] Jul, [facility] [address] [id number] [address] [place] [id number] Jul, [facility] [address] [id number] [address] [place] [id number] Jul, [facility] [address] [id number] [address] [place] [id number] Jul, [facility] [address] [id number] [address] [place] [id number] Jul, [facility] [address] [id number] [address] [place] [id number] Jun, [facility] [address] [id number] [address] [place] [phone] Jun, [facility] [address] [id number] [address] [place] [id number] Jun, [facility] [address] [id number] [address] [place] [id number] Jun, [facility] [address] [id number] [address] [place] [id number] May, [facility] [address] [id number] [address] [place] [phone] May, [facility] [address] [id number] [address] [place] [id number] May, [facility] [address] [id number] [address] [place] [id number] May, [facility] [address] [id number] [address] [place] [id number] May, [facility] [address] [id number] [address] [place] [id number] Apr, [facility] [address] [id number] [address] [place] [id number] Apr, IMMUNIZATIONS No Known Immunizations SOCIAL HISTORY Never Assessed REASON FOR VISIT PLAN OF CARE VITAL SIGNS Height 64.5 in 2014-05-01 Weight 151.5 lbs 2014-05-01 Temperature 97.9 degrees Fahrenheit 2014-05-01 Heart Rate 80 bpm 2014-05-01 Respiratory Rate 28 2014-05-01 Blood pressure systolic 130 mmHg 2014-05-01 Blood pressure diastolic 96 mmHg 2014-05-01 MEDICATIONS Unknown Medications RESULTS No Results PROCEDURES [...]
--- OUTSIDE RECORDS SUMMARY | 2019-11-11 19:07 | XMS REPORT ---
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 12 Active 179604415 Problem Other chronic pain G89.29 Active 8 1149313 Problem Lumbago with sciatica, left side M54.42 Active 609108436 Problem Lumbago with sciatica, right side M54.41 Active [id number] ALLERGIES No Information ENCOUNTERS Encounter Location Date Diagnosis [place] [id number] [facility] [id number] [address] [place] [phone] Jan, [facility] [address] [place] [id number] [address] [place] [address] Dec, Hypertension I10 and Impacte d cerumen of left ear H61.22 [facility] [address] [facility] [id number] [address] [place] [address] Dec, Bipolar 2 disorder F31.81 [facility] [address] [facility] [id number] [address] [place] [address] Dec, [facility] [address] [facility] [id number] [address] [place] [id number] Dec, Bipolar 2 disorder F31.81 [facility] [address] [place] [id number] [address] [place] [phone] Oct, Bipolar 2 disorder F31.81 [facility] [address] [facility] [id number] [address] [place] [phone] Oct, Bipolar 2 disorder F31.81 ; Attention deficit disorder F90.0 ; Social anxiety disorder F40.10 and Chronic post-traumatic stress disorder (PTSD) F43.12 [facility] [address] [place] [id number] [address] [place] [id number] Aug, Lumbago with sciatica, left side M54.42 and Lumbago with sciatica, right side M54.41 [facility] [address] [place] [id number] [address] [place] [address] Aug, Bipolar 2 disorder F31.81 [place] [address] [place] [id number] [place] [address] Aug, Bipolar 2 disorder F31.81 [facility] [address] [place] [id number] [place] [address] Aug, Bipolar 2 disorder F31.81 ; Attention deficit disorder F90.0 ; Social anxiety disorder F40.10 and PTSD (post-traumatic stress disorder) F43.10 [facility] [address] [place] [id number] [address] [place] [address] Jul, [facility] [address] [place] [id number] [address] [place] [address] Jun, Nasal congestion R09.81 ; Ac ping nonintractable headache, unspecified headache type R51 and Viral upper respiratory tract infection J06.9 [facility] [address] [place] [id number] [address] [place] [address] Jun, [facility] [address] [place] [id number] [address] [place] [phone] May, [facility] [address] [address] May, [facility] [address] [address] May, Bipolar 2 disorder F31.81 ; Social anxiety disorder F40.10 ; Chronic post-traumatic stress disorder (PTSD) F43.12 ; Attention deficit disorder F90.0 and Encounter for immunization Z23 [facility] [address] [address] Apr, [facility] [address] [address] Apr, Body aches R52 and Acute chely opharyngitis J00 [place] [address] [address] 24 Mar, 2018 Pure hypercholesterolemia E7 8.00 and Exertional chest pain R07.9 [place] [address] [address] Mar, Hyperlipidemia E78.5 ; Hyper tension I10 and Routine adult health maintenance Z00.00 [place] [address] [address] 20 Mar, 2018 Hypertension I10 ; Hyperlipi demia E78.5 ; Chest pain, exertional R07.9 and Routine adult health maintenance Z00.00 [place] [address] [address] 17 Mar, 2018 [place] [address] [address] Mar, Lumbago with sciatica, left side M54.42 and Lumbago with sciatica, right side M54.41 [place] [address] [address] Jan, [place] [address] [place] [id number] [address] [place] [address] Dec, Bipolar 2 disorder F31.81 ; Social anxiety disorder F40.10 and Chronic post-traumatic stress disorder (PTSD) F43.12 [facility] [address] [id number] [address] [place] [address] Dec, [facility] [address] [id number] [address] [place] [address] Dec, [facility] [address] [id number] [address] [place] [address] Dec, Upper respiratory tract infe ction, unspecified type J06.9 [facility] [address] [id number] [address] [place] [address] October, [place] [address] [id number] [address] [place] [address] Oct, Bipolar 2 disorder F31.81 ; Attention deficit disorder F90.0 ; Social anxiety disorder F40.10 and Chronic post-traumatic stress disorder (PTSD) F43.12 [place] [address] [id number] [address] [place] [address] Oct, [place] [address] [id number] [address] [place] [address] Oct, [place] [address] [facility] [id number] [address] [place] [address] Aug, [place] [address] [facility] [id number] [address] [place] [address] Aug, [place] [address] [facility] [id number] [address] [place] [address] Jul, Strain of lumbar region, ini tial encounter S39.012A [facility] [address] [id number] [address] [place] [address] Jul, Lumbago with sciatica, left side M54.42 and Lumbago with sciatica, right side M54.41 [facility] [address] [facility] [id number] [address] [place] [id number] Jul, Low back pain M54.5 and Othe r chronic pain G89.29 [facility] [address] [facility] [id number] [address] [place] [phone] Jul, [facility] [address] [facility] [id number] [address] [place] [address] Jul, Bipolar 2 disorder F31.81 ; Attention deficit disorder F90.0 and Social anxiety disorder F40.10 [facility] [address] [place] [id number] [place] [id number] Jun, [facility] [address] [place] [id number] [place] [address] May, [facility] [address] [place] [id number] [place] [address] Apr, Bipolar 2 disorder F31.81 ; Attention deficit disorder F90.0 ; Social anxiety disorder F40.10 and Chronic post-traumatic stress disorder (PTSD) F43.12 [facility] [address] [address] Apr, [facility] [address] [address] Apr, Hyperlipidemia E78.5 [facility] [address] [place] [id number] [address] [place] [phone] Mar, Encounter for immunization Z 23 and Tinea cruris B35.6 [facility] [address] [place] [id number] [address] [place] [address] Mar, [facility] [address] [place] [id number] [address] [place] [address] Jan, [facility] [address] [place] [id number] [address] [place] [id number] Dec, [facility] [address] [place] [id number] [address] [place] [address] Dec, [facility] [address] [place] [id number] [address] [place] [address] Dec, Bipolar 2 disorder F31.81 ; Social anxiety disorder F40.10 and Attention deficit disorder F90.0 [facility] [address] [id number] [address] [place] [address] Dec, [facility] [address] [id number] [address] [place] [address] Dec, Hypertension I10 [facility] [address] [id number] [address] [place] [phone] October, [facility] [address] [id number] [address] [place] [phone] Oct, [facility] [address] [id number] [address] [place] [address] Oct, Nasal congestion R09.81 [facility] [address] [id number] [address] [place] [phone] Oct, Social anxiety disorder F40. 10 ; Bipolar 2 disorder F31.81 and Attention deficit disorder F90.0 [facility] [address] [id number] [address] [place] [address] Aug, [facility] [address] [id number] [address] [place] [id number] Aug, [facility] [address] [id number] [address] [place] [address] Jul, Nasal congestion R09.81 [facility] [address] [id number] [address] [place] [address] Jul, [facility] [address] [id number] [address] [place] [address] Jun, Bipolar 2 disorder F31.81 ; Attention deficit disorder F90.0 ; Social anxiety disorder F40.10 and Chronic post-traumatic stress disorder (PTSD) F43.12 [facility] [address] [id number] [address] [place] [address] Jun, [facility] [address] [place] [id number] [address] [place] [address] May, [facility] [address] [address] Apr, Attention deficit disorder F 90.0 [facility] [address] [place] [id number] [place] [address] 10 Apr, 2016 Urinary hesitancy R39.11 ; H yperlipidemia E78.5 and Encounter for immunization Z23 [facility] [address] [address] Apr, [facility] [address] [address] Mar, [facility] [address] [address] Jan, [facility] [address] [address] Dec, [facility] [address] [address] Dec, [facility] [address] [address] Dec, Bipolar 2 disorder F31.81 ; Attention deficit disorder F90.0 ; Posttraumatic stress disorder F43.10 and Social anxiety disorder F40.10 [facility] [id number] [place] [address] Dec, Scabies exposure Z20.89 and Scabies B86 [facility] [address] [place] [address] Dec, [facility] [address] [address] Dec, Hypertension I10 and Gastroe sophageal reflux disease without esophagitis K21.9 [facility] [address] [address] October, [facility] [address] [facility] [id number] [address] [place] [id number] October, [facility] [address] [facility] [id number] [address] [place] [address] Oct, Bipolar 2 disorder F31.81 ; Posttraumatic stress disorder F43.10 ; Attention deficit disorder F90.0 and Social anxiety disorder F40.10 [facility] [address] [facility] [id number] [address] [place] [phone] Oct, [facility] [address] [facility] [id number] [address] [place] [id number] Oct, Hypertension I10 and Nasal c ongestion R09.81 [facility] [address] [facility] [id number] [address] [place] [phone] Aug, [facility] [address] [facility] [id number] [address] [place] [id number] Aug, [facility] [address] [facility] [id number] [address] [place] [phone] Aug, [facility] [address] [facility] [id number] [address] [place] [id number] Aug, [facility] [address] [facility] [id number] [address] [place] [id number] Aug, [facility] [address] [facility] [id number] [address] [place] [phone] Aug, Hypertension I10 and Tremor R25.1 [facility] [address] [facility] [id number] [address] [place] [address] Aug, Bipolar 2 disorder F31.81 ; Posttraumatic stress disorder F43.10 ; Attention deficit disorder F90.0 and Social anxiety disorder F40.10 [facility] [address] [facility] [id number] [address] [place] [id number] Jul, [facility] [address] [place] [id number] [address] [place] [address] Jul, Hyperlipidemia E78.5 [facility] [address] [facility] [id number] [address] [place] [address] Jul, Hypertension I10 and Hyperli pidemia E78.5 [facility] [address] [id number] [address] [place] [address] Jun, Bipolar 2 disorder F31.81 ; Posttraumatic stress disorder F43.10 ; Attention deficit disorder F90.0 and Social anxiety disorder F40.10 [facility] [address] [id number] [address] [place] [address] May, [facility] [address] [facility] [id number] [address] [place] [address] May, [facility] [address] [facility] [id number] [address] [place] [address] Apr, Bipolar 2 disorder F31.81 ; Posttraumatic stress disorder F43.10 ; Attention deficit disorder F90.0 and Social phobia F40.10 [facility] [address] [facility] [id number] [address] [place] [address] Apr, Bipolar 2 disorder F31.81 ; Posttraumatic stress disorder F43.10 and Attention deficit disorder F90.0 [facility] [address] [facility] [id number] [address] [place] [address] Apr, [facility] [address] [facility] [id number] [address] [place] [address] Apr, [facility] [address] [facility] [id number] [address] [place] [address] Apr, [facility] [address] [id number] [address] [place] [phone] Mar, [facility] [address] [facility] [id number] [address] [place] [phone] Mar, [facility] [address] [facility] [id number] [address] [place] [phone] Jan, [facility] [address] [facility] [id number] [address] [place] [address] Jan, [facility] [address] [facility] [id number] [address] [place] [address] Jan, Bipolar II disorder 296.89 ; Posttraumatic stress disorder 309.81 ; Social phobia 300.23 and Attention deficit disorder of childhood without mention of hyperactivity 314.00 [facility] [address] [facility] [id number] [address] [place] [address] Jan, Other and unspecified bipola r disorders 296.89 ; Posttraumatic stress disorder 309.81 and Attention deficit disorder of childhood without mention of hyperactivity 314.00 [facility] [address] [facility] [id number] [address] [place] [address] Jan, [facility] [address] [facility] [id number] [address] [place] [address] Dec, Other and unspecified bipola r disorders 296.89 ; Posttraumatic stress disorder 309.81 and Attention deficit disorder of childhood without mention of hyperactivity 314.00 [facility] [address] [facility] [id number] [address] [place] [address] Dec, Migraines 346.90 [facility] [address] [facility] [id number] [address] [place] [address] Dec, Other and unspecified bipola r disorders 296.89 ; Posttraumatic stress disorder 309.81 and Attention deficit disorder of childhood without mention of hyperactivity 314.00 [facility] [address] [facility] [id number] [address] [place] [id number] Dec, [facility] [address] [facility] [id number] [address] [place] [address] Dec, Bipolar II disorder 296.89 ; Social phobia 300.23 ; Posttraumatic stress disorder 309.81 and Attention deficit disorder of childhood without mention of hyperactivity 314.00 [facility] [address] [facility] [id number] [address] [place] [address] Dec, Other and unspecified bipola r disorders 296.89 ; Posttraumatic stress disorder 309.81 and Attention deficit disorder of childhood without mention of hyperactivity 314.00 [facility] [address] [id number] [address] [place] [address] October, Other and unspecified bipola r disorders 296.89 ; Posttraumatic stress disorder 309.81 and Attention deficit disorder of childhood without mention of hyperactivity 314.00 [facility] [address] [id number] [address] [place] [address] October, [facility] [address] [id number] [address] [place] [phone] October, [facility] [address] [id number] [address] [place] [phone] October, [facility] [address] [id number] [address] [place] [address] October, [facility] [address] [id number] [address] [place] [address] October, Attention deficit disorder o f childhood without mention of hyperactivity 314.00 ; Posttraumatic stress disorder 309.81 ; Social phobia 300.23 and Other and unspecified bipolar disorders 296.89 [facility] [address] [id number] [address] [place] [phone] Oct, [facility] [address] [id number] [address] [place] [phone] Oct, [facility] [address] [id number] [address] [place] [phone] Aug, [facility] [address] [id number] [address] [place] [id number] Aug, [facility] [address] [id number] [address] [place] [phone] Aug, [facility] [address] [id number] [address] [place] [phone] Aug, [facility] [address] [id number] [address] [place] [phone] Aug, [facility] [address] [id number] [facility] [place] [address] 17 Aug, 2014 [facility] [address] [id number] [facility] [place] [address] 17 Aug, 2014 [facility] [address] [id number] [facility] [place] [address] 17 Aug, 2014 [facility] [address] [id number] [address] [place] [address], [place] [address] 17 Aug, 2014 [facility] [address] [id number] [facility] [place] [address] 17 Aug, 2014 [facility] [address] [id number] [address] [place] [address], [place] [address] 13 Aug, 2014 [facility] [address] [id number] [address] [place] [address], [place] [address] 13 Aug, 2014 [facility] [address] [id number] [address] [place] [address], [place] [address] 12 Aug, 2014 [facility] [address] [id number] [address] [place] [address], [place] [address] 12 Aug, 2014 [facility] [address] [id number] [address] [place] [address], [place] [address] Aug, [facility] [address] [id number] [address] [place] [address], [place] [address] 12 Aug, 2014 [facility] [address] [id number] [address] [place] [address], [place] [address] Aug, [facility] [address] [id number] [address] [place] [address], [place] [address] 12 Aug, 2014 [facility] [address] [id number] [address] [place] [address], [place] [address] 11 Aug, 2014 [facility] [address] [id number] [address] [place] [address], [place] [address] 11 Aug, 2014 [facility] [address] [id number] [address] [place] [address], [place] [address] Aug, [facility] [address] [id number] [address] [place] [address], [place] [address] Aug, [facility] [address] [id number] [address] [place] [address], [place] [address] Aug, [facility] [address] [id number] [address] [place] [address], [place] [address] Aug, [facility] [address] [id number] [address] [place] [address], [place] [address] Aug, [facility] [address] [id number] [address] [place] [address], [place] [address] Aug, [facility] [address] [id number] [address] [place] [address], [place] [address] Aug, [facility] [address] [id number] [address] [place] [address], [place] [address] Aug, [facility] [address] [id number] [address] [place] [address], [place] [address] Aug, [facility] [address] [id number] [address] [place] [address], [place] [address] Aug, [facility] [address] [id number] [address] [place] [address], [place] [address] Jul, [facility] [address] [id number] [address] [place] [address], [place] [address] Jul, [facility] [address] [id number] [address] [place] [address] Jul, [facility] [address] [id number] [address] [place] [address], [place] [address] Jul, [facility] [address] [id number] [address] [place] [address], [place] [address] Jul, [facility] [address] [id number] [address] [place] [address], [place] [address] Jul, [facility] [address] [id number] [address] [place] [address] Jul, [facility] [address] [id number] [address] [place] [address] Jul, [facility] [address] [id number] [address] [place] [address] Jun, [facility] [address] [id number] [address] [place] [phone] Jun, [facility] [address] [id number] [address] [place] [phone] Jun, [facility] [address] [id number] [address] [place] [phone] Jun, [facility] [address] [id number] [address] [place] [phone] May, [facility] [address] [id number] [address] [place] [phone] May, [facility] [address] [id number] [address] [place] [phone] May, [facility] [address] [id number] [address] [place] [phone] May, [facility] [address] [id number] [address] [place] [phone] May, [facility] [address] [id number] [address] [place] [phone] Apr, [facility] [address] [id number] [address] [place] [phone] Apr, IMMUNIZATIONS No Known Immunizations SOCIAL HISTORY Never Assessed REASON FOR VISIT PLAN OF CARE VITAL SIGNS MEDICATIONS Unknown Medications RESULTS No Results PROCEDURES Procedure Date Ordered Result Body Site ASSAY THYROID STIM HORMONE Jul 11, 2014 LIPID PANEL Jul 11, 2014 COMPREHEN METABOLIC PANEL Jul 11, 2014 VENIPUNCT, ROUTINE* Jul 11, 2014 INSTRUCTIONS MEDICATIONS ADMINISTERED No Known Medications [...]
--- OUTSIDE RECORDS SUMMARY | 2019-11-11 19:07 | XMS REPORT ---
Author Author [place] [facility] Address [address] [place] [address] Care Team Providers Care Air Brake Man Name Role Phone ION RAMACHANDRAN Unavailable PROBLEMS Type Condition ICD9-CM Code [id number] Code Onset Dates Condition S tatus SNOMED Code Problem Social anxiety disorder F40.10 Active 71389826 Problem Hyperlipidemia E78.5 Active 78800 004 Problem Hypertension I10 Active 0338088 3 Problem Pure hypercholesterolemia E78.00 Acti ve 137686561 Problem Attention deficit disorder F90.0 Act shalom 590362756 Problem PTSD (post-traumatic stress disorder) F43.10 Active 38311141 Problem Bipolar 2 disorder F31.81 Active 8 2123091 Problem Chronic post-traumatic stress disorder (PTSD) F43. 12 Active 140987244 Problem Other chronic pain G89.29 Active 8 2507497 Problem Lumbago with sciatica, left side M54.42 Active 593304382 Problem Lumbago with sciatica, right side M54.41 Active [id number] ALLERGIES Substance Reaction Event Type Date Status Codeine Sulfate disoriented Drug Allergy Aug, Active Augmentin stomach upset Drug Allergy Aug, Active ENCOUNTERS Encounter Location Date Diagnosis [facility] [address] [facility] [id number] [address] [place] [phone] Jan, [facility] [address] [facility] [id number] [address] [place] [phone] Dec, [facility] [address] [facility] [id number] [address] [place] [phone] Dec, Bipolar 2 disorder F31.81 [facility] [address] [facility] [id number] [address] [place] [phone] Dec, [facility] [address] [facility] [id number] [address] [place] [phone] Dec, Bipolar 2 disorder F31.81 [facility] [address] [facility] [id number] [address] [place] [phone] Oct, Bipolar 2 disorder F31.81 [facility] [address] [facility] [id number] [address] [place] [address] Oct, Bipolar 2 disorder F31.81 ; Attention deficit disorder F90.0 ; Social anxiety disorder F40.10 and Chronic post-traumatic stress disorder (PTSD) F43.12 [facility] [address] [facility] [id number] [address] [place] [phone] Aug, Lumbago with sciatica, left side M54.42 and Lumbago with sciatica, right side M54.41 [place] [id number] [place] [id number] [address] [place] [address] Aug, Bipolar 2 disorder F31.81 [facility] [address] [place] [id number] [address] [place] [address] Aug, Bipolar 2 disorder F31.81 [facility] [address] [place] [id number] [address] [place] [address] Aug, Bipolar 2 disorder F31.81 ; Attention deficit disorder F90.0 ; Social anxiety disorder F40.10 and PTSD (post-traumatic stress disorder) F43.10 [facility] [address] [place] [id number] [address] [place] [address] Jul, [facility] [address] [facility] [id number] [address] [place] [phone] Jun, Nasal congestion R09.81 ; Ac ping nonintractable headache, unspecified headache type R51 and Viral upper respiratory tract infection J06.9 [facility] [address] [facility] [id number] [address] [place] [address] Jun, [facility] [address] [place] [id number] [address] [place] [address] May, [place] [id number] [address] May, [place] [address] [address] May, Bipolar 2 disorder F31.81 ; Social anxiety disorder F40.10 ; Chronic post-traumatic stress disorder (PTSD) F43.12 ; Attention deficit disorder F90.0 and Encounter for immunization Z23 [facility] [address] [address] Apr, [facility] [address] [address] Apr, Body aches R52 and Acute chely opharyngitis J00 [place] [address] [address] 24 Mar, 2018 Pure hypercholesterolemia E7 8.00 and Exertional chest pain R07.9 [place] [address] [address] 21 Mar, 2018 Hyperlipidemia E78.5 ; Hyper tension I10 and Routine adult health maintenance Z00.00 [place] [address] [address] 20 Mar, 2018 Hypertension I10 ; Hyperlipi demia E78.5 ; Chest pain, exertional R07.9 and Routine adult health maintenance Z00.00 [place] [address] [address] 17 Mar, 2018 [place] [address] [address] Mar, Lumbago with sciatica, left side M54.42 and Lumbago with sciatica, right side M54.41 [place] [address] [address] Jan, [place] [address] [address] Dec, Bipolar 2 disorder F31.81 ; Social anxiety disorder F40.10 and Chronic post-traumatic stress disorder (PTSD) F43.12 [facility] [address] [id number] [address] [place] [address] Dec, [facility] [address] [id number] [address] [place] [phone] Dec, [facility] [address] [id number] [address] [place] [address] Dec, Upper respiratory tract infe ction, unspecified type J06.9 [facility] [address] [id number] [address] [place] [address] October, [facility] [address] [facility] [id number] [address] [place] [address] Oct, Bipolar 2 disorder F31.81 ; Attention deficit disorder F90.0 ; Social anxiety disorder F40.10 and Chronic post-traumatic stress disorder (PTSD) F43.12 [facility] [address] [id number] [address] [place] [address] Oct, [facility] [address] [id number] [address] [place] [phone] Oct, [facility] [address] [facility] [id number] [address] [place] [address] Aug, [place] [address] [facility] [id number] [address] [place] [address] Aug, [facility] [address] [facility] [id number] [address] [place] [address] Jul, Strain of lumbar region, ini tial encounter S39.012A [facility] [address] [facility] [id number] [address] [place] [address] Jul, Lumbago with sciatica, left side M54.42 and Lumbago with sciatica, right side M54.41 [facility] [address] [facility] [id number] [address] [place] [address] Jul, Low back pain M54.5 and Othe r chronic pain G89.29 [facility] [address] [facility] [id number] [address] [place] [address] Jul, [facility] [address] [facility] [id number] [address] [place] [address] Jul, Bipolar 2 disorder F31.81 ; Attention deficit disorder F90.0 and Social anxiety disorder F40.10 [facility] [address] [facility] [id number] [address] [place] [phone] Jun, [facility] [address] [facility] [id number] [place] [address] May, [facility] [address] [place] [id number] [place] [address] Apr, Bipolar 2 disorder F31.81 ; Attention deficit disorder F90.0 ; Social anxiety disorder F40.10 and Chronic post-traumatic stress disorder (PTSD) F43.12 [facility] [address] [facility] [id number] [address] [place] [phone] Apr, [facility] [address] [place] [id number] [place] [address] Apr, Hyperlipidemia E78.5 [facility] [address] [facility] [id number] [address] [place] [phone] Mar, Encounter for immunization Z 23 and Tinea cruris B35.6 [facility] [address] [facility] [id number] [address] [place] [phone] Mar, [facility] [address] [facility] [id number] [address] [place] [phone] Jan, [facility] [address] [facility] [id number] [address] [place] [phone] Dec, [facility] [address] [facility] [id number] [address] [place] [phone] Dec, [facility] [address] [place] [id number] [address] [place] [phone] Dec, Bipolar 2 disorder F31.81 ; Social anxiety disorder F40.10 and Attention deficit disorder F90.0 [facility] [address] [facility] [id number] [address] [place] [phone] Dec, [facility] [address] [facility] [id number] [address] [place] [address] Dec, Hypertension I10 [facility] [address] [facility] [id number] [address] [place] [address] October, [facility] [address] [id number] [address] [place] [address] Oct, [facility] [address] [facility] [id number] [address] [place] [address] Oct, Nasal congestion R09.81 [facility] [address] [facility] [id number] [address] [place] [address] Oct, Social anxiety disorder F40. 10 ; Bipolar 2 disorder F31.81 and Attention deficit disorder F90.0 [facility] [address] [facility] [id number] [address] [place] [phone] Aug, [facility] [address] [facility] [id number] [address] [place] [phone] Aug, [facility] [address] [facility] [id number] [address] [place] [phone] Jul, Nasal congestion R09.81 [facility] [address] [facility] [id number] [address] [place] [phone] Jul, [facility] [address] [place] [id number] [address] [place] [phone] Jun, Bipolar 2 disorder F31.81 ; Attention deficit disorder F90.0 ; Social anxiety disorder F40.10 and Chronic post-traumatic stress disorder (PTSD) F43.12 [facility] [address] [facility] [id number] [address] [place] [phone] Jun, [facility] [address] [facility] [id number] [address] [place] [phone] May, [facility] [address] [place] [id number] [address] [place] [address] Apr, Attention deficit disorder F 90.0 [facility] [address] [address] Apr, Urinary hesitancy R39.11 ; H yperlipidemia E78.5 and Encounter for immunization Z23 [facility] [address] [facility] [id number] [address] [place] [phone] Apr, [facility] [address] [place] [id number] [place] [address] Mar, [facility] [address] [address] Jan, [facility] [address] [place] [id number] [address] [place] [address] Dec, [facility] [address] [place] [id number] [address] [place] [phone] Dec, [facility] [address] [place] [id number] [address] [place] [phone] Dec, Bipolar 2 disorder F31.81 ; Attention deficit disorder F90.0 ; Posttraumatic stress disorder F43.10 and Social anxiety disorder F40.10 [facility] [address] [facility] [id number] [address] [place] [address] Dec, Scabies exposure Z20.89 and Scabies B86 [facility] [address] [place] [id number] [address] [place] [phone] Dec, [facility] [address] [place] [id number] [address] [place] [phone] Dec, Hypertension I10 and Gastroe sophageal reflux disease without esophagitis K21.9 [facility] [address] [place] [id number] [address] [place] [id number] October, [facility] [address] [facility] [id number] [address] [place] [address] October, [facility] [address] [place] [id number] [address] [place] [id number] Oct, Bipolar 2 disorder F31.81 ; Posttraumatic stress disorder F43.10 ; Attention deficit disorder F90.0 and Social anxiety disorder F40.10 [facility] [address] [facility] [id number] [address] [place] [address] Oct, [facility] [address] [facility] [id number] [address] [place] [address] Oct, Hypertension I10 and Nasal c ongestion R09.81 [facility] [address] [facility] [id number] [address] [place] [address] Aug, [facility] [address] [facility] [id number] [address] [place] [address] Aug, [facility] [address] [facility] [id number] [address] [place] [phone] Aug, [facility] [address] [facility] [id number] [address] [place] [phone] Aug, [facility] [address] [place] [id number] [address] [place] [phone] Aug, [facility] [address] [facility] [id number] [address] [place] [address] Aug, Hypertension I10 and Tremor R25.1 [facility] [address] [facility] [id number] [address] [place] [address] Aug, Bipolar 2 disorder F31.81 ; Posttraumatic stress disorder F43.10 ; Attention deficit disorder F90.0 and Social anxiety disorder F40.10 [facility] [address] [facility] [id number] [address] [place] [phone] Jul, [facility] [address] [place] [id number] [place] [address] Jul, Hyperlipidemia E78.5 [facility] [address] [facility] [id number] [address] [place] [address] Jul, Hypertension I10 and Hyperli pidemia E78.5 [facility] [address] [facility] [id number] [address] [place] [address] Jun, Bipolar 2 disorder F31.81 ; Posttraumatic stress disorder F43.10 ; Attention deficit disorder F90.0 and Social anxiety disorder F40.10 [facility] [address] [facility] [id number] [address] [place] [phone] May, [facility] [address] [facility] [id number] [address] [place] [address] May, [facility] [address] [facility] [id number] [address] [place] [address] Apr, Bipolar 2 disorder F31.81 ; Posttraumatic stress disorder F43.10 ; Attention deficit disorder F90.0 and Social phobia F40.10 [facility] [address] [facility] [id number] [address] [place] [address] Apr, Bipolar 2 disorder F31.81 ; Posttraumatic stress disorder F43.10 and Attention deficit disorder F90.0 [facility] [address] [facility] [id number] [address] [place] [phone] Apr, [facility] [address] [id number] [address] [place] [phone] Apr, [facility] [address] [facility] [id number] [address] [place] [address] Apr, [facility] [address] [facility] [id number] [address] [place] [phone] Mar, [facility] [address] [id number] [address] [place] [phone] Mar, [facility] [address] [facility] [id number] [address] [place] [phone] Jan, [facility] [address] [facility] [id number] [address] [place] [address] Jan, [facility] [address] [facility] [id number] [address] [place] [address] Jan, Bipolar II disorder 296.89 ; Posttraumatic stress disorder 309.81 ; Social phobia 300.23 and Attention deficit disorder of childhood without mention of hyperactivity 314.00 [facility] [address] [facility] [id number] [address] [place] [address] Jan, Other and unspecified bipola r disorders 296.89 ; Posttraumatic stress disorder 309.81 and Attention deficit disorder of childhood without mention of hyperactivity 314.00 [facility] [address] [facility] [id number] [address] [place] [address] Jan, [facility] [address] [facility] [id number] [address] [place] [address] Dec, Other and unspecified bipola r disorders 296.89 ; Posttraumatic stress disorder 309.81 and Attention deficit disorder of childhood without mention of hyperactivity 314.00 [facility] [address] [facility] [id number] [address] [place] [address] Dec, Migraines 346.90 [facility] [address] [facility] [id number] [address] [place] [address] Dec, Other and unspecified bipola r disorders 296.89 ; Posttraumatic stress disorder 309.81 and Attention deficit disorder of childhood without mention of hyperactivity 314.00 [facility] [address] [facility] [id number] [address] [place] [address] Dec, [facility] [address] [facility] [id number] [address] [place] [address] Dec, Bipolar II disorder 296.89 ; Social phobia 300.23 ; Posttraumatic stress disorder 309.81 and Attention deficit disorder of childhood without mention of hyperactivity 314.00 [facility] [address] [facility] [id number] [address] [place] [phone] Dec, Other and unspecified bipola r disorders 296.89 ; Posttraumatic stress disorder 309.81 and Attention deficit disorder of childhood without mention of hyperactivity 314.00 [facility] [address] [id number] [address] [place] [address] October, Other and unspecified bipola r disorders 296.89 ; Posttraumatic stress disorder 309.81 and Attention deficit disorder of childhood without mention of hyperactivity 314.00 [facility] [address] [id number] [address] [place] [phone] October, [facility] [address] [id number] [address] [place] [phone] October, [facility] [address] [facility] [id number] [address] [place] [phone] October, [facility] [address] [facility] [id number] [address] [place] [address] October, [facility] [address] [facility] [id number] [address] [place] [id number] October, Attention deficit disorder o f childhood without mention of hyperactivity 314.00 ; Posttraumatic stress disorder 309.81 ; Social phobia 300.23 and Other and unspecified bipolar disorders 296.89 [facility] [address] [facility] [id number] [address] [place] [phone] Oct, [facility] [address] [facility] [id number] [address] [place] [phone] Oct, [facility] [address] [facility] [id number] [address] [place] [phone] Aug, [facility] [address] [id number] [address] [place] [phone] Aug, [facility] [address] [facility] [id number] [address] [place] [phone] Aug, [facility] [address] [facility] [id number] [address] [place] [phone] Aug, [facility] [address] [facility] [id number] [address] [place] [id number] 17 Aug, 2014 [facility] [address] [id number] [facility] [place] [address] 17 Aug, 2014 [facility] [address] [id number] [facility] [place] [address] 17 Aug, 2014 [facility] [address] [id number] [facility] [place] [address] 17 Aug, 2014 [facility] [address] [id number] [facility] [place] [address] 17 Aug, 2014 [facility] [address] [id number] [facility] [place] [address] 17 Aug, 2014 [facility] [address] [id number] [address] [place] [address], [place] [address] 13 Aug, 2014 [facility] [address] [id number] [address] [place] [address], [place] [address] 13 Aug, 2014 [facility] [address] [id number] [address] [place] [address], [place] [address] 12 Aug, 2014 [facility] [address] [id number] [address] [place] [address], [place] [address] 12 Aug, 2014 [facility] [address] [id number] [address] [place] [address], [place] [address] 12 Aug, 2014 [facility] [address] [id number] [address] [place] [address], [place] [address] 12 Aug, 2014 [facility] [address] [id number] [address] [place] [address], [place] [address] 12 Aug, 2014 [facility] [address] [id number] [address] [place] [address], [place] [address] 12 Aug, 2014 [facility] [address] [id number] [address] [place] [address], [place] [address] 11 Aug, 2014 [facility] [address] [id number] [facility] [place] [address] 11 Aug, 2014 [facility] [address] [id number] [address] [place] [address], [place] [address] 04 Aug, 2014 [facility] [address] [id number] [address] [place] [address], [place] [address] Aug, [facility] [address] [id number] [address] [place] [address], [place] [address] Aug, [facility] [address] [id number] [address] [place] [address], [place] [address] Aug, [facility] [address] [id number] [address] [place] [address], [place] [address] Aug, [facility] [address] [id number] [address] [place] [address], [place] [address] Aug, [facility] [address] [id number] [address] [place] [address], [place] [address] Aug, [facility] [address] [address] [id number] [address] [place] [address], [place] [id number] Aug, [facility] [address] [id number] [address] [place] [address], [place] [address] Aug, [facility] [address] [id number] [address] [place] [address], [place] [address] Aug, [facility] [address] [id number] [address] [place] [address], [place] [id number] Jul, [facility] [address] [id number] [address] [place] [address], [place] [address] Jul, [facility] [address] [id number] [address] [place] [address], [place] [address] Jul, [facility] [address] [id number] [address] [place] [address], [place] [address] Jul, [facility] [address] [id number] [address] [place] [address], [place] [address] Jul, [facility] [address] [id number] [address] [place] [address], [place] [address] Jul, [facility] [address] [id number] [address] [place] [phone] Jul, [facility] [address] [id number] [address] [place] [phone] Jul, [facility] [address] [id number] [address] [place] [phone] Jun, [facility] [address] [id number] [address] [place] [phone] Jun, [facility] [address] [id number] [address] [place] [phone] Jun, [facility] [address] [id number] [address] [place] [phone] Jun, [facility] [address] [id number] [address] [place] [phone] May, [facility] [address] [id number] [address] [place] [phone] May, [facility] [address] [id number] [address] [place] [phone] May, [facility] [address] [id number] [address] [place] [phone] May, [facility] [address] [id number] [address] [place] [phone] May, [facility] [address] [id number] [address] [place] [phone] Apr, [facility] [address] [id number] [address] [place] [phone] Apr, IMMUNIZATIONS Vaccine Route Administration Date Status TORADOL (IM) 60 MG/2ML (UP TO 15 MG) IM Intramuscular September 10, 2018 Administered SOCIAL HISTORY Never Assessed REASON FOR VISIT bad back pain: Patient reports having back pain and back spasms since Monday. Patient reports their pain started after they were standing for a long period of time. Patient reports they have been using a heating pad and taking Tylenol to help their pain. PLAN OF CARE Activity Details Follow Up prn Reason: VITAL SIGNS Height 64 in 2018-09-10 Weight 160.4 lbs 2018-09-10 Temperature 97.4 degrees Fahrenheit 2018-09-10 Heart Rate 106 bpm 2018-09-10 Respiratory Rate 20 2018-09-10 BMI 27.53 kg/m2 2018-09-10 Blood pressure systolic 126 mmHg 2018-09-10 Blood pressure diastolic 70 mmHg 2018-09-10 MEDICATIONS Medication Instructions Dosage Frequency Start Date End Date Duration S tatus Ibuprofen Active Methylphenidate HCl ER 27 MG Orally Once a day for ADHD 1 tablet in the morning Aug, 28 days Active Multivitamin 1 tablet by Oral route 1 time per day 30 2013 Active PredniSONE 20 MG Orally Once a day 2 tablet 24h Aug, 5 days Active Omeprazole 20 MG TAKE ONE CAPSULE BY MOUTH ONCE DAILY 30 Active Lisinopril 20 MG TAKE ONE TABLET BY MOUTH ONCE DAILY 30 Active Tylenol Active Aspirin 325 mg 1 tablet by Oral route 1 time per day Apr, Active Lamotrigine 200 MG TAKE ONE TABLET BY M OUTH ONCE DAILY IN THE EVENING FOR DEPRESSION Active Vitamin C 500 mg 1 tablet by Oral route 1 time per day 3 0 Apr, 2014 Active Atorvastatin Calcium 40 MG Orally Once a day 1 tablet 24h 30 Active Vitamin D3 5000 UNIT Orally Once a day 1 capsule 24h Apr, Active Pseudoephedrine HCl 30 MG Orally every 6 hrs 1 tablet as needed 6h Jun, 7 days Active Cyclobenzaprine HCl 10 MG Orally Three times a day 1 tablet as need ed 8h Aug, 7 days Active RESULTS No Results PROCEDURES Procedure Date Ordered Result Body Site THER/PROPH/DIAG INJ, SC/IM September 10, 2018 TORADOL (IM) 60 MG/2ML (UP TO 15 MG) September 10, 2018 INSTRUCTIONS MEDICATIONS ADMINISTERED No Known Medications MEDICAL (GENERAL) HISTORY Type Description Date Medical History Hypertension Medical History GERD Medical History Bipolar Medical History Gastroesophageal reflux disease without esophagitis Medical History Urinary hesitancy Medical History Posttraumatic stress disorder Surgical History Hernia right ingual Surgical History Colonoscopy october 2014 Hospitalization History surgeries Hospitalization History ER for dehydration and vomitting 10/04/15
--- OUTSIDE RECORDS SUMMARY | 2019-11-11 19:07 | XMS REPORT ---
Author Author [facility] Address [address] [place] [address] Care Team Providers Care Machine Molder Name Role Phone GUILLERMO MCCORD Unavailable PROBLEMS Type Condition ICD9-CM Code [id number] Code Onset Dates Condition S tatus SNOMED Code Problem Social anxiety disorder F40.10 Active 15871989 Problem Hyperlipidemia E78.5 Active 19983 004 Problem Hypertension I10 Active 1659019 3 Problem Pure hypercholesterolemia E78.00 Acti ve 324900858 Problem Attention deficit disorder F90.0 Act shalom 790363015 Problem PTSD (post-traumatic stress disorder) F43.10 Active 42245360 Problem Bipolar 2 disorder F31.81 Active 8 0911320 Problem Chronic post-traumatic stress disorder (PTSD) F43. 12 Active 987852225 Problem Other chronic pain G89.29 Active 8 8336816 Problem Lumbago with sciatica, left side M54.42 Active 701773297 Problem Lumbago with sciatica, right side M54.41 Active [id number] ALLERGIES No Information ENCOUNTERS Encounter Location Date Diagnosis [facility] [address] [facility] [id number] [address] [place] [phone] Jan, [facility] [address] [facility] [id number] [address] [place] [phone] Dec, [facility] [address] [facility] [id number] [address] [place] [phone] Dec, Bipolar 2 disorder F31.81 [facility] [address] [facility] [id number] [address] [place] [address] Dec, [facility] [address] [facility] [id number] [address] [place] [address] Dec, Bipolar 2 disorder F31.81 [facility] [address] [place] [id number] [address] [place] [address] Oct, Bipolar 2 disorder F31.81 [facility] [address] [place] [id number] [place] [address] Oct, Bipolar 2 disorder F31.81 ; Attention deficit disorder F90.0 ; Social anxiety disorder F40.10 and Chronic post-traumatic stress disorder (PTSD) F43.[address] [facility] [address] [place] [id number] [address] [place] [address] Aug, Lumbago with sciatica, left side M54.42 and Lumbago with sciatica, right side M54.41 [facility] [address] [place] [id number] [place] [address] Aug, Bipolar 2 disorder F31.81 [facility] [address] [place] [id number] [place] [address] Aug, Bipolar 2 disorder F31.81 [facility] [address] [place] [id number] [place] [address] Aug, Bipolar 2 disorder F31.81 ; Attention deficit disorder F90.0 ; Social anxiety disorder F40.10 and PTSD (post-traumatic stress disorder) F43.10 [facility] [address] [place] [id number] [address] [place] [address] Jul, [facility] [address] [place] [id number] [address] [place] [phone] Jun, Nasal congestion R09.81 ; Ac table mountain nonintractable headache, unspecified headache type R51 and Viral upper respiratory tract infection J06.9 [facility] [address] [place] [id number] [address] [place] [phone] Jun, [facility] [address] [place] [id number] [place] [address] May, [facility] [address] [place] [id number] [address] [place] [phone] May, [place] [address] [place] [id number] [address] [place] [address] May, Bipolar 2 disorder F31.81 ; Social anxiety disorder F40.10 ; Chronic post-traumatic stress disorder (PTSD) F43.12 ; Attention deficit disorder F90.0 and Encounter for immunization Z23 [facility] [address] [address] Apr, [facility] [address] [place] [id number] [place] [address] Apr, Body aches R52 and Acute chely opharyngitis J00 [place] [address] [address] 24 Mar, 2018 Pure hypercholesterolemia E7 8.00 and Exertional chest pain R07.9 [place] [address] [address] Mar, Hyperlipidemia E78.5 ; Hyper tension I10 and Routine adult health maintenance Z00.00 [place] [address] [address] 20 Mar, 2018 Hypertension I10 ; Hyperlipi demia E78.5 ; Chest pain, exertional R07.9 and Routine adult health maintenance Z00.00 [place] [address] [place] [id number] [address] [place] [address] 17 Mar, 2018 [place] [address] [address] Mar, Lumbago with sciatica, left side M54.42 and Lumbago with sciatica, right side M54.41 [place] [address] [address] Jan, [place] [address] [place] [id number] [place] [address] Dec, Bipolar 2 disorder F31.81 ; Social anxiety disorder F40.10 and Chronic post-traumatic stress disorder (PTSD) F43.12 [place] [address] [id number] [address] [place] [address] Dec, [facility] [address] [facility] [id number] [address] [place] [address] Dec, [facility] [address] [facility] [id number] [address] [place] [address] Dec, Upper respiratory tract infe ction, unspecified type J06.9 [facility] [address] [id number] [address] [place] [address] October, [facility] [address] [id number] [address] [place] [address] Oct, Bipolar 2 disorder F31.81 ; Attention deficit disorder F90.0 ; Social anxiety disorder F40.10 and Chronic post-traumatic stress disorder (PTSD) F43.12 [place] [address] [facility] [id number] [address] [place] [address] Oct, [facility] [address] [facility] [id number] [address] [place] [address] Oct, [place] [address] [facility] [id number] [address] [place] [address] Aug, [facility] [address] [facility] [id number] [address] [place] [address] Aug, [facility] [address] [facility] [id number] [address] [place] [address] Jul, Strain of lumbar region, ini tial encounter S39.012A [facility] [address] [id number] [address] [place] [address] Jul, Lumbago with sciatica, left side M54.42 and Lumbago with sciatica, right side M54.41 [facility] [address] [facility] [id number] [address] [place] [address] Jul, Low back pain M54.5 and Othe r chronic pain G89.29 [facility] [address] [place] [id number] [address] [place] [address] Jul, [facility] [address] [place] [id number] [place] [address] Jul, Bipolar 2 disorder F31.81 ; Attention deficit disorder F90.0 and Social anxiety disorder F40.10 [facility] [address] [place] [id number] [place] [address] Jun, [facility] [address] [place] [id number] [place] [address] May, [facility] [address] [place] [id number] [place] [address] Apr, Bipolar 2 disorder F31.81 ; Attention deficit disorder F90.0 ; Social anxiety disorder F40.10 and Chronic post-traumatic stress disorder (PTSD) F43.12 [place] [address] [address] Apr, [facility] [address] [address] Apr, Hyperlipidemia E78.5 [facility] [address] [place] [id number] [place] [address] Mar, Encounter for immunization Z 23 and Tinea cruris B35.6 [facility] [id number] [place] [address] Mar, [facility] [address] [place] [id number] [place] [address] Jan, [facility] [address] [place] [id number] [address] [place] [address] Dec, [facility] [address] [place] [id number] [address] [place] [address] Dec, [facility] [address] [place] [id number] [address] [place] [address] Dec, Bipolar 2 disorder F31.81 ; Social anxiety disorder F40.10 and Attention deficit disorder F90.0 [facility] [address] [id number] [address] [place] [phone] Dec, [facility] [address] [id number] [address] [place] [address] Dec, Hypertension I10 [facility] [address] [id number] [address] [place] [phone] October, [facility] [address] [id number] [address] [place] [address] Oct, [facility] [address] [id number] [address] [place] [address] Oct, Nasal congestion R09.81 [facility] [address] [facility] [id number] [address] [place] [address] Oct, Social anxiety disorder F40. 10 ; Bipolar 2 disorder F31.81 and Attention deficit disorder F90.0 [facility] [address] [id number] [address] [place] [phone] Aug, [facility] [address] [facility] [id number] [address] [place] [address] Aug, [facility] [address] [facility] [id number] [address] [place] [address] Jul, Nasal congestion R09.81 [facility] [address] [facility] [id number] [address] [place] [address] Jul, [facility] [address] [facility] [id number] [address] [place] [address] Jun, Bipolar 2 disorder F31.81 ; Attention deficit disorder F90.0 ; Social anxiety disorder F40.10 and Chronic post-traumatic stress disorder (PTSD) F43.12 [facility] [address] [id number] [address] [place] [address] Jun, [facility] [address] [facility] [id number] [address] [place] [id number] May, [facility] [address] [facility] [id number] [address] [place] [address] Apr, Attention deficit disorder F 90.0 [facility] [address] [place] [id number] [address] [place] [address] Apr, Urinary hesitancy R39.11 ; H yperlipidemia E78.5 and Encounter for immunization Z23 [facility] [address] [facility] [id number] [address] [place] [address] Apr, [facility] [address] [place] [id number] [address] [place] [address] Mar, [facility] [address] [place] [id number] [place] [address] Jan, [facility] [address] [place] [id number] [place] [address] Dec, [facility] [address] [place] [id number] [address] [place] [address] Dec, [facility] [address] [place] [id number] [address] [place] [phone] Dec, Bipolar 2 disorder F31.81 ; Attention deficit disorder F90.0 ; Posttraumatic stress disorder F43.10 and Social anxiety disorder F40.10 [facility] [address] [facility] [id number] [address] [place] [address] Dec, Scabies exposure Z20.89 and Scabies B86 [facility] [address] [facility] [id number] [address] [place] [address] Dec, [facility] [address] [place] [id number] [address] [place] [id number] Dec, Hypertension I10 and Gastroe sophageal reflux disease without esophagitis K21.9 [facility] [address] [place] [id number] [address] [place] [address] October, [facility] [address] [place] [id number] [address] [place] [address] October, [facility] [address] [facility] [id number] [address] [place] [address] Oct, Bipolar 2 disorder F31.81 ; Posttraumatic stress disorder F43.10 ; Attention deficit disorder F90.0 and Social anxiety disorder F40.10 [facility] [address] [place] [id number] [place] [address] Oct, [facility] [address] [place] [id number] [place] [address] Oct, Hypertension I10 and Nasal c ongestion R09.81 [facility] [address] [facility] [id number] [place] [address] Aug, [facility] [address] [place] [id number] [place] [address] Aug, [facility] [address] [address] Aug, [facility] [address] [place] [id number] [address] [place] [address] Aug, [facility] [address] [address] Aug, [facility] [address] [address] Aug, Hypertension I10 and Tremor R25.1 [facility] [address] [place] [id number] [address] [place] [address] Aug, Bipolar 2 disorder F31.81 ; Posttraumatic stress disorder F43.10 ; Attention deficit disorder F90.0 and Social anxiety disorder F40.10 [facility] [address] [place] [id number] [address] [place] [address] Jul, [facility] [address] [address] Jul, Hyperlipidemia E78.5 [facility] [address] [place] [id number] [address] [place] [address] Jul, Hypertension I10 and Hyperli pidemia E78.5 [facility] [address] [place] [id number] [address] [place] [address] Jun, Bipolar 2 disorder F31.81 ; Posttraumatic stress disorder F43.10 ; Attention deficit disorder F90.0 and Social anxiety disorder F40.10 [facility] [address] [address] May, [facility] [address] [place] [id number] [place] [address] May, [facility] [address] [place] [id number] [place] [address] Apr, Bipolar 2 disorder F31.81 ; Posttraumatic stress disorder F43.10 ; Attention deficit disorder F90.0 and Social phobia F40.10 [facility] [address] [address] Apr, Bipolar 2 disorder F31.81 ; Posttraumatic stress disorder F43.10 and Attention deficit disorder F90.0 [facility] [address] [address] Apr, [facility] [address] [place] [id number] [place] [address] Apr, [facility] [address] [place] [id number] [address] [place] [address] Apr, [facility] [address] [place] [id number] [address] [place] [address] Mar, [facility] [address] [address] Mar, [facility] [address] [place] [id number] [address] [place] [address] Jan, [facility] [address] [place] [id number] [address] [place] [address] Jan, [facility] [address] [facility] [id number] [address] [place] [address] Jan, Bipolar II disorder 296.89 ; Posttraumatic stress disorder 309.81 ; Social phobia 300.23 and Attention deficit disorder of childhood without mention of hyperactivity 314.00 [facility] [address] [facility] [id number] [address] [place] [address] Jan, Other and unspecified bipola r disorders 296.89 ; Posttraumatic stress disorder 309.81 and Attention deficit disorder of childhood without mention of hyperactivity 314.00 [facility] [address] [facility] [id number] [address] [place] [address] Jan, [facility] [address] [facility] [id number] [address] [place] [address] Dec, Other and unspecified bipola r disorders 296.89 ; Posttraumatic stress disorder 309.81 and Attention deficit disorder of childhood without mention of hyperactivity 314.00 [facility] [address] [facility] [id number] [address] [place] [address] Dec, Migraines 346.90 [facility] [address] [facility] [id number] [address] [place] [address] Dec, Other and unspecified bipola r disorders 296.89 ; Posttraumatic stress disorder 309.81 and Attention deficit disorder of childhood without mention of hyperactivity 314.00 [facility] [address] [facility] [id number] [address] [place] [address] Dec, [facility] [address] [facility] [id number] [address] [place] [address] Dec, Bipolar II disorder 296.89 ; Social phobia 300.23 ; Posttraumatic stress disorder 309.81 and Attention deficit disorder of childhood without mention of hyperactivity 314.00 [facility] [address] [facility] [id number] [address] [place] [address] Dec, Other and unspecified bipola r disorders 296.89 ; Posttraumatic stress disorder 309.81 and Attention deficit disorder of childhood without mention of hyperactivity 314.00 [facility] [address] [facility] [id number] [address] [place] [address] October, Other and unspecified bipola r disorders 296.89 ; Posttraumatic stress disorder 309.81 and Attention deficit disorder of childhood without mention of hyperactivity 314.00 [facility] [address] [id number] [address] [place] [address] October, [facility] [address] [id number] [address] [place] [address] October, [facility] [address] [id number] [address] [place] [phone] October, [facility] [address] [id number] [address] [place] [address] October, [facility] [address] [id number] [address] [place] [address] October, Attention deficit disorder o f childhood without mention of hyperactivity 314.00 ; Posttraumatic stress disorder 309.81 ; Social phobia 300.23 and Other and unspecified bipolar disorders 296.89 [facility] [address] [id number] [address] [place] [address] Oct, [facility] [address] [id number] [address] [place] [phone] Oct, [facility] [address] [facility] [id number] [address] [place] [address] Aug, [facility] [address] [id number] [address] [place] [phone] Aug, [facility] [address] [id number] [address] [place] [address] Aug, [facility] [address] [id number] [address] [place] [phone] Aug, [facility] [address] [facility] [id number] [address] [place] [phone] Aug, [facility] [address] [id number] [address] [place] [address] Aug, [facility] [address] [id number] [facility] [place] [address] 17 Aug, 2014 [facility] [address] [id number] [facility] [place] [address] 17 Aug, 2014 [facility] [address] [id number] [facility] [place] [address] 17 Aug, 2014 [facility] [address] [id number] [address] [place] [address], [place] [address] 17 Aug, 2014 [facility] [address] [id number] [address] [place] [address], [place] [address] 13 Aug, 2014 [facility] [address] [id number] [address] [place] [address], [place] [address] 13 Aug, 2014 [facility] [address] [id number] [address] [place] [address], [place] [address] 12 Aug, 2014 [facility] [address] [id number] [address] [place] [address], [place] [address] 12 Aug, 2014 [facility] [address] [id number] [address] [place] [address], [place] [address] Aug, [facility] [address] [id number] [address] [place] [address], [place] [address] Aug, [facility] [address] [id number] [address] [place] [address], [place] [address] Aug, [facility] [address] [id number] [address] [place] [address], [place] [address] Aug, [facility] [address] [id number] [address] [place] [address], [place] [address] Aug, [facility] [address] [id number] [address] [place] [address], [place] [address] Aug, [facility] [address] [id number] [address] [place] [address], [place] [address] 04 Aug, 2014 [facility] [address] [id number] [address] [place] [address], [place] [address] Aug, [facility] [address] [id number] [address] [place] [address], [place] [address] Aug, [facility] [address] [id number] [address] [place] [address], [place] [address] Aug, [facility] [address] [id number] [address] [place] [address], [place] [address] Aug, [facility] [address] [id number] [address] [place] [address], [place] [address] Aug, [facility] [address] [id number] [address] [place] [address], [place] [address] Aug, [facility] [address] [id number] [address] [place] [address], [place] [address] Aug, [facility] [address] [id number] [address] [place] [address], [place] [address] Aug, [facility] [address] [id number] [address] [place] [address], [place] [address] Aug, [facility] [address] [id number] [address] [place] [address], [place] [address] Jul, [facility] [address] [id number] [address] [place] [address], [place] [address] Jul, [facility] [address] [id number] [address] [place] [address], [place] [address] Jul, [facility] [address] [id number] [address] [place] [address], [place] [address] Jul, [facility] [address] [id number] [address] [place] [address], [place] [address] Jul, [facility] [address] [id number] [address] [place] [address], [place] [address] Jul, [facility] [address] [id number] [address] [place] [address], [place] [address] Jul, [facility] [address] [id number] [address] [place] [id number] Jul, [facility] [address] [id number] [address] [place] [id number] Jun, [facility] [address] [id number] [address] [place] [id number] Jun, [facility] [facility] [address] [id number] [address] [place] [id number] Jun, [facility] [address] [id number] [address] [place] [id number] Jun, [facility] [address] [id number] [address] [place] [phone] May, [facility] [address] [id number] [address] [place] [id number] May, [facility] [address] [id number] [address] [place] [id number] May, [facility] [address] [id number] [address] [place] [id number] May, [facility] [address] [id number] [address] [place] [id number] May, [facility] [address] [id number] [address] [place] [id number] Apr, [facility] [address] [id number] [address] [place] [phone] Apr, IMMUNIZATIONS No Known Immunizations SOCIAL HISTORY Never Assessed REASON FOR VISIT [facility] 09/18/2018 PLAN OF CARE VITAL SIGNS MEDICATIONS Medication Instructions Dosage Frequency Start Date End Date Duration S sekouus Methylphenidate HCl ER 27 MG Orally Once a day for ADHD 1 tablet in the morning Aug, 28 days Active RESULTS No Results PROCEDURES No Known procedures [...]
--- OUTSIDE RECORDS SUMMARY | 2019-11-11 19:07 | XMS REPORT ---
Author Author [place] [facility] Address [address] [place] [address] Care Team Providers Care Fire Coordinator Name Role Phone GUILLERMO M[place] Unavailable PROBLEMS Type Condition ICD9-CM Code [id number] Code Onset Dates Condition S tatus SNOMED Code Problem Social anxiety disorder F40.10 Active 00755966 Problem Hyperlipidemia E78.5 Active 05937 004 Problem Hypertension I10 Active 7941942 3 Problem Pure hypercholesterolemia E78.00 Acti ve 526900705 Problem Attention deficit disorder F90.0 Act shalom 382499897 Problem PTSD (post-traumatic stress disorder) F43.10 Active 64790262 Problem Bipolar 2 disorder F31.81 Active 8 5239595 Problem Chronic post-traumatic stress disorder (PTSD) F43. 12 Active 465220316 Problem Other chronic pain G89.29 Active 8 6258406 Problem Lumbago with sciatica, left side M54.42 Active 854608483 Problem Lumbago with sciatica, right side M54.41 Active [id number] ALLERGIES No Information ENCOUNTERS Encounter Location Date Diagnosis [facility] [address] [facility] [id number] [address] [place] [phone] Jan, [facility] [address] [facility] [id number] [address] [place] [address] Dec, [facility] [address] [facility] [id number] [address] [place] [address] Dec, Bipolar [address] [facility] [address] [facility] [id number] [address] [place] [address] Dec, [facility] [address] [facility] [id number] [address] [place] [address] Dec, Bipolar [address] [facility] [address] [place] [id number] [address] [place] [address] Oct, Bipolar [address] [facility] [address] [id number] [place] [address] Oct, Bipolar 2 disorder F31.81 ; Attention deficit disorder F90.0 ; Social anxiety disorder F40.10 and Chronic post-traumatic stress disorder (PTSD) F43.12 [facility] [address] [id number] [address] [place] [address] Aug, Lumbago with sciatica, left side M54.42 and Lumbago with sciatica, right side M54.41 [facility] [address] [id number] [place] [address] Aug, Bipolar [address] [facility] [address] [id number] [place] [address] Aug, Bipolar [address] [facility] [id number] [place] [address] Aug, Bipolar 2 disorder F31.81 ; Attention deficit disorder F90.0 ; Social anxiety disorder F40.10 and PTSD (post-traumatic stress disorder) F43.10 [facility] [address] [id number] [address] [place] [address] Jul, [facility] [address] [id number] [address] [place] [address] Jun, Nasal congestion R09.81 ; Ac s[place] nonintractable headache, unspecified headache type R51 and Viral upper respiratory tract infection J06.9 [facility] [address] [id number] [address] [place] [address] Jun, [facility] [id number] [place] [address] May, [facility] [address] [place] [id number] [address] [place] [address] May, [place] [address] [place] [id number] [address] [place] [address] May, Bipolar 2 disorder F31.81 ; Social anxiety disorder F40.10 ; Chronic post-traumatic stress disorder (PTSD) F43.12 ; Attention deficit disorder F90.0 and Encounter for immunization Z23 [facility] [address] [address] Apr, [facility] [id number] [place] [address] Apr, Body aches R52 and Acute chely opharyngitis J00 [place] [address] [id number] 24 Mar, 2018 Pure hypercholesterolemia E7 8.00 and Exertional chest pain R07.9 [place] [address] [address] Mar, Hyperlipidemia E78.5 ; Hyper tension I10 and Routine adult health maintenance Z00.00 [place] [address] [address] 20 Mar, 2018 Hypertension I10 ; Hyperlipi demia E78.5 ; Chest pain, exertional R07.9 and Routine adult health maintenance Z00.00 [place] [address] [place] [id number] [address] [place] [address] 17 Mar, 2018 [place] [address] [address] Mar, Lumbago with sciatica, left side M54.42 and Lumbago with sciatica, right side M54.41 [place] [address] [address] Jan, [place] [address] [place] [id number] [place] [address] Dec, Bipolar 2 disorder F31.81 ; Social anxiety disorder F40.10 and Chronic post-traumatic stress disorder (PTSD) F43.12 [place] [address] [id number] [address] [place] [address] Dec, [facility] [address] [facility] [id number] [address] [place] [address] Dec, [facility] [address] [facility] [id number] [address] [place] [address] Dec, Upper respiratory tract infe ction, unspecified type J06.9 [facility] [address] [id number] [address] [place] [address] October, [facility] [address] [id number] [address] [place] [address] Oct, Bipolar 2 disorder F31.81 ; Attention deficit disorder F90.0 ; Social anxiety disorder F40.10 and Chronic post-traumatic stress disorder (PTSD) F43.12 [place] [address] [facility] [id number] [address] [place] [address] Oct, [facility] [address] [facility] [id number] [address] [place] [address] Oct, [place] [address] [facility] [id number] [address] [place] [address] Aug, [facility] [address] [facility] [id number] [address] [place] [address] Aug, [facility] [address] [facility] [id number] [address] [place] [address] Jul, Strain of lumbar region, ini tial encounter S39.012A [facility] [address] [id number] [address] [place] [address] Jul, Lumbago with sciatica, left side M54.42 and Lumbago with sciatica, right side M54.41 [facility] [address] [facility] [id number] [address] [place] [address] Jul, Low back pain M54.5 and Othe r chronic pain G89.29 [facility] [address] [id number] [address] [place] [address] Jul, [facility] [address] [address] [id number] [place] [address] Jul, Bipolar 2 disorder F31.81 ; Attention deficit disorder F90.0 and Social anxiety disorder F40.10 [facility] [id number] [place] [address] Jun, [facility] [address] [id number] [place] [address] May, [facility] [address] [id number] [place] [address] Apr, Bipolar 2 disorder F31.81 ; Attention deficit disorder F90.0 ; Social anxiety disorder F40.10 and Chronic post-traumatic stress disorder (PTSD) F43.12 [place] [address] [address] Apr, [facility] [address] [address] Apr, Hyperlipidemia E78.5 [facility] [address] [id number] [place] [address] Mar, Encounter for immunization Z 23 and Tinea cruris B35.6 [facility] [id number] [place] [address] Mar, [facility] [id number] [place] [phone] Jan, [facility] [address] [place] [id number] [address] [place] [address] Dec, [facility] [address] [id number] [address] [place] [address] Dec, [facility] [address] [place] [id number] [address] [place] [address] Dec, Bipolar 2 disorder F31.81 ; Social anxiety disorder F40.10 and Attention deficit disorder F90.0 [facility] [address] [id number] [address] [place] [address] Dec, [facility] [address] [id number] [address] [place] [address] Dec, Hypertension I10 [facility] [address] [id number] [address] [place] [address] October, [facility] [address] [id number] [address] [place] [address] Oct, [facility] [address] [id number] [address] [place] [address] Oct, Nasal congestion R09.81 [facility] [address] [facility] [id number] [address] [place] [address] Oct, Social anxiety disorder F40. 10 ; Bipolar 2 disorder F31.81 and Attention deficit disorder F90.0 [facility] [address] [id number] [address] [place] [address] Aug, [facility] [address] [facility] [id number] [address] [place] [address] Aug, [facility] [address] [facility] [id number] [address] [place] [address] Jul, Nasal congestion R09.81 [facility] [address] [facility] [id number] [address] [place] [address] Jul, [facility] [address] [facility] [id number] [address] [place] [address] Jun, Bipolar 2 disorder F31.81 ; Attention deficit disorder F90.0 ; Social anxiety disorder F40.10 and Chronic post-traumatic stress disorder (PTSD) F43.12 [facility] [address] [id number] [address] [place] [address] Jun, [facility] [address] [facility] [id number] [address] [place] [address] May, [facility] [address] [facility] [id number] [address] [place] [address] Apr, Attention deficit disorder F 90.0 [facility] [address] [place] [id number] [address] [place] [address] Apr, Urinary hesitancy R39.11 ; H yperlipidemia E78.5 and Encounter for immunization Z23 [facility] [address] [facility] [id number] [address] [place] [address] Apr, [facility] [address] [id number] [address] [place] [phone] Mar, [facility] [id number] [place] [address] Jan, [facility] [id number] [place] [address] Dec, [facility] [address] [place] [id number] [address] [place] [phone] Dec, [facility] [address] [id number] [address] [place] [address] Dec, Bipolar 2 disorder F31.81 ; Attention deficit disorder F90.0 ; Posttraumatic stress disorder F43.10 and Social anxiety disorder F40.10 [facility] [address] [facility] [id number] [address] [place] [address] Dec, Scabies exposure Z20.[address] [facility] [address] [facility] [id number] [address] [place] [address] Dec, [facility] [address] [id number] [address] [place] [address] Dec, Hypertension I10 and Gastroe sophageal reflux disease without esophagitis K21.9 [facility] [address] [id number] [address] [place] [address] October, [facility] [address] [place] [id number] [address] [place] [address] October, [facility] [address] [facility] [id number] [address] [place] [address] Oct, Bipolar 2 disorder F31.81 ; Posttraumatic stress disorder F43.10 ; Attention deficit disorder F90.0 and Social anxiety disorder F40.10 [facility] [id number] [place] [address] Oct, [facility] [id number] [place] [address] Oct, Hypertension I10 and Nasal c ongestion R09.81 [facility] [address] [facility] [id number] [place] [phone] Aug, [facility] [id number] [place] [address] Aug, [facility] [address] [address] Aug, [facility] [address] [place] [id number] [address] [place] [address] Aug, [facility] [address] [address] Aug, [facility] [address] [address] Aug, Hypertension I10 [address]25[address]1 [facility] [address] [id number] [address] [place] [address] Aug, Bipolar 2 disorder F31.81 ; Posttraumatic stress disorder F43.10 ; Attention deficit disorder F90.0 and Social anxiety disorder F40.10 [facility] [address] [place] [id number] [address] [place] [address] Jul, [facility] [address] [address] Jul, Hyperlipidemia E78.5 [facility] [address] [place] [id number] [address] [place] [address] Jul, Hypertension I10 and Hyperli pidemia E78.5 [facility] [address] [place] [id number] [address] [place] [address] Jun, Bipolar 2 disorder F31.81 ; Posttraumatic stress disorder F43.10 ; Attention deficit disorder F90.0 and Social anxiety disorder F40.10 [facility] [address] [address] May, [facility] [address] [id number] [place] [address] May, [facility] [id number] [place] [address] Apr, Bipolar 2 disorder F31.81 ; Posttraumatic stress disorder F43.10 ; Attention deficit disorder F90.[address]obia F40.10 [facility] [address] [address] Apr, Bipolar 2 disorder F31.81 ; Posttraumatic stress disorder F43.10 and Attention deficit disorder F90.0 [facility] [address] [address] Apr, [facility] [id number] [place] [address] Apr, [facility] [address] [place] [id number] [address] [place] [address] Apr, [facility] [address] [id number] [address] [place] [address] Mar, [facility] [address] [address] Mar, [facility] [address] [place] [id number] [address] [place] [phone] Jan, [facility] [address] [place] [id number] [address] [place] [address] Jan, [facility] [address] [facility] [id number] [address] [place] [address] Jan, Bipolar II disorder 296.89 ; Posttraumatic stress disorder 309.81 ; Social phobia 300.23 and Attention deficit disorder of childhood without mention of hyperactivity 314.00 [facility] [address] [facility] [id number] [address] [place] [address] Jan, Other and unspecified bipola r disorders 296.89 ; Posttraumatic stress disorder 309.81 and Attention deficit disorder of childhood without mention of hyperactivity 314.00 [facility] [address] [facility] [id number] [address] [place] [address] Jan, [facility] [address] [facility] [id number] [address] [place] [address] Dec, Other and unspecified bipola r disorders 296.89 ; Posttraumatic stress disorder 309.81 and Attention deficit disorder of childhood without mention of hyperactivity 314.00 [facility] [address] [facility] [id number] [address] [place] [address] Dec, Migraines 346.90 [facility] [address] [facility] [id number] [address] [place] [address] Dec, Other and unspecified bipola r disorders 296.89 ; Posttraumatic stress disorder 309.81 and Attention deficit disorder of childhood without mention of hyperactivity 314.00 [facility] [address] [facility] [id number] [address] [place] [address] Dec, [facility] [address] [facility] [id number] [address] [place] [address] Dec, Bipolar II disorder 296.89 ; Social phobia 300.23 ; Posttraumatic stress disorder 309.81 and Attention deficit disorder of childhood without mention of hyperactivity 314.00 [facility] [address] [facility] [id number] [address] [place] [address] Dec, Other and unspecified bipola r disorders 296.89 ; Posttraumatic stress disorder 309.81 and Attention deficit disorder of childhood without mention of hyperactivity 314.00 [facility] [address] [facility] [id number] [address] [place] [address] October, Other and unspecified bipola r disorders 296.89 ; Posttraumatic stress disorder 309.81 and Attention deficit disorder of childhood without mention of hyperactivity 314.00 [facility] [address] [id number] [address] [place] [address] October, [facility] [address] [id number] [address] [place] [address] October, [facility] [address] [id number] [address] [place] [address] October, [facility] [address] [id number] [address] [place] [address] October, [facility] [address] [id number] [address] [place] [address] October, Attention deficit disorder o f childhood without mention of hyperactivity 314.00 ; Posttraumatic stress disorder 309.81 ; Social phobia 300.23 and Other and unspecified bipolar disorders 296.89 [facility] [address] [id number] [address] [place] [address] Oct, [facility] [address] [id number] [address] [place] [address] Oct, [facility] [address] [facility] [id number] [address] [place] [address] Aug, [facility] [address] [id number] [address] [place] [address] Aug, [facility] [address] [id number] [address] [place] [address] Aug, [facility] [address] [id number] [address] [place] [address] Aug, [facility] [address] [facility] [id number] [address] [place] [phone] Aug, [facility] [address] [id number] [address] [place] [address] Aug, [facility] [address] [id number] [facility] [address] 17 Aug, 2014 [facility] [address] [id number] [facility] [address] 17 Aug, 2014 [facility] [address] [id number] [facility] [address] 17 Aug, 2014 [facility] [address] [id number] [address] [place] [address], [place] [address] 17 Aug, 2014 [facility] [address] [id number] [address] [place] [address], [place] [id number] 13 Aug, 2014 [facility] [address] [id number] [address] [place] [address], [place] [id number] 13 Aug, 2014 [facility] [address] [id number] [address] [place] [address], [place] [id number] 12 Aug, 2014 [facility] [address] [id number] [address] [place] [address], [place] [id number] 12 Aug, 2014 [facility] [address] [id number] [address] [place] [address], [place] [id number] Aug, [facility] [address] [id number] [address] [place] [address], [place] [id number] Aug, [facility] [address] [id number] [address] [place] [address], [place] [id number] Aug, [facility] [address] [id number] [address] [place] [address], [place] [id number] Aug, [facility] [address] [id number] [address] [place] [address], [place] [id number] Aug, [facility] [address] [id number] [address] [place] [address], [place] [address] Aug, [facility] [address] [id number] [address] [place] [address], [place] [id number] 04 Aug, 2014 [facility] [address] [id number] [address] [place] [address], [place] [id number] Aug, [facility] [address] [id number] [address] [place] [address], [place] [id number] Aug, [facility] [address] [id number] [address] [place] [address], [place] [id number] Aug, [facility] [address] [id number] [address] [place] [address], [place] [id number] Aug, [facility] [address] [id number] [address] [place] [address], [place] [id number] Aug, [facility] [address] [id number] [address] [place] [address], [place] [address] Aug, [facility] [address] [id number] [address] [place] [address], [place] [id number] Aug, [facility] [address] [id number] [address] [place] [address], [place] [id number] Aug, [facility] [address] [id number] [address] [place] [address], [place] [id number] Aug, [facility] [address] [id number] [address] [place] [address], [place] [id number] Jul, [facility] [address] [id number] [address] [place] [address], [place] [id number] Jul, [facility] [address] [id number] [address] [place] [address], [place] [id number] Jul, [facility] [address] [id number] [address] [place] [address], [place] [id number] Jul, [facility] [address] [id number] [address] [place] [address], [place] [id number] Jul, [facility] [address] [id number] [address] [place] [address], [place] [id number] Jul, [facility] [address] [id number] [address] [place] [address], [place] [address] Jul, [facility] [address] [id number] [address] [place] [id number] Jul, [facility] [address] [id number] [address] [place] [id number] Jun, [facility] [address] [id number] [address] [place] [id number] Jun, [facility] [address] [id number] [address] [place] [phone] Jun, [facility] [address] [id number] [address] [place] [id number] Jun, [facility] [address] [id number] [address] [place] [id number] May, [facility] [address] [id number] [address] [place] [phone] May, [facility] [address] [id number] [address] [place] [id number] May, [facility] [address] [id number] [address] [place] [phone] May, [facility] [address] [id number] [address] [place] [phone] May, [facility] [address] [id number] [address] [place] [phone] Apr, [facility] [address] [id number] [address] [place] [phone] Apr, IMMUNIZATIONS No Known Immunizations SOCIAL HISTORY [...]
--- OUTSIDE RECORDS SUMMARY | 2019-11-11 19:08 | XMS REPORT ---
Author Author [place] Organization [facility] Address [address] [place] [address] Care Team Providers Care Cant Gang Sawyer Name Role Phone [place] JOHNSON Unavailable PROBLEMS Type Condition ICD9-CM Code [id number] Code Onset Dates Condition S tatus SNOMED Code Problem Social anxiety disorder F40.10 Active 70535086 Problem Hyperlipidemia E78.5 Active 85458 004 Problem Hypertension I10 Active 2828854 3 Problem Pure hypercholesterolemia E78.00 Acti ve 585458505 Problem Attention deficit disorder F90.0 Act shalom 184912613 Problem PTSD (post-traumatic stress disorder) F43.10 Active 35649696 Problem Bipolar 2 disorder F31.81 Active 8 1575834 Problem Chronic post-traumatic stress disorder (PTSD) F43. 12 Active 130069452 Problem Other chronic pain G89.29 Active 8 1148124 Problem Lumbago with sciatica, left side M54.42 Active 118496130 Problem Lumbago with sciatica, right side M54.41 Active [id number] ALLERGIES No Information ENCOUNTERS Encounter Location Date Diagnosis [facility] [address] [facility] [id number] [address] [place] [id number] Jan, [facility] [address] [facility] [id number] [address] [place] [id number] Dec, [facility] [address] [facility] [id number] [address] [place] [id number] Dec, Bipolar 2 disorder F31.81 [facility] [address] [facility] [id number] [address] [place] [id number] Dec, [facility] [address] [facility] [id number] [address] [place] [id number] Dec, Bipolar 2 disorder F31.81 [facility] [address] [place] [id number] [address] [place] [id number] Oct, Bipolar 2 disorder F31.81 [facility] [address] [place] [id number] [place] [address] Oct, Bipolar 2 disorder F31.81 ; Attention deficit disorder F90.0 ; Social anxiety disorder F40.10 and Chronic post-traumatic stress disorder (PTSD) F43.12 [facility] [address] [place] [id number] [address] [place] [id number] Aug, Lumbago with sciatica, left side M54.42 and Lumbago with sciatica, right side M54.41 [facility] [address] [place] [id number] [place] [address] Aug, Bipolar 2 disorder F31.81 [facility] [address] [place] [id number] [place] [address] Aug, Bipolar 2 disorder F31.81 [facility] [address] [place] [id number] [place] [phone] Aug, Bipolar 2 disorder F31.81 ; Attention deficit disorder F90.0 ; Social anxiety disorder F40.10 and PTSD (post-traumatic stress disorder) F43.10 [facility] [address] [place] [id number] [address] [place] [id number] Jul, [facility] [address] [place] [id number] [address] [place] [phone] Jun, Nasal congestion R09.81 ; Ac seminole nonintractable headache, unspecified headache type R51 and Viral upper respiratory tract infection J06.9 [facility] [address] [place] [id number] [address] [place] [id number] Jun, [facility] [address] [id number] [place] [address] May, [facility] [address] [place] [id number] [address] [place] [id number] May, [place] [address] [place] [id number] [address] [place] [id number] May, Bipolar 2 disorder F31.81 ; Social anxiety disorder F40.10 ; Chronic post-traumatic stress disorder (PTSD) F43.12 ; Attention deficit disorder F90.0 and Encounter for immunization Z23 [facility] [address] [address] Apr, [facility] [address] [place] [id number] [place] [address] Apr, Body aches R52 and Acute chely opharyngitis J00 [place] [address] [address] 24 Mar, 2018 Pure hypercholesterolemia E7 8.00 and Exertional chest pain R07.9 [place] [address] [address] Mar, Hyperlipidemia E78.5 ; Hyper tension I10 and Routine adult health maintenance Z00.00 [place] [address] [address] 20 Mar, 2018 Hypertension I10 ; Hyperlipi demia E78.5 ; Chest pain, exertional R07.9 and Routine adult health maintenance Z00.00 [place] [address] [place] [id number] [address] [place] [id number] 17 Mar, 2018 [place] [address] [address] Mar, Lumbago with sciatica, left side M54.42 and Lumbago with sciatica, right side M54.41 [place] [address] [address] Jan, [place] [address] [place] [id number] [place] [address] Dec, Bipolar 2 disorder F31.81 ; Social anxiety disorder F40.10 and Chronic post-traumatic stress disorder (PTSD) F43.12 [place] [address] [id number] [address] [place] [id number] Dec, [facility] [address] [facility] [id number] [address] [place] [id number] Dec, [facility] [address] [facility] [id number] [address] [place] [id number] Dec, Upper respiratory tract infe ction, unspecified type J06.9 [facility] [address] [id number] [address] [place] [id number] October, [facility] [address] [id number] [address] [place] [id number] Oct, Bipolar 2 disorder F31.81 ; Attention deficit disorder F90.0 ; Social anxiety disorder F40.10 and Chronic post-traumatic stress disorder (PTSD) F43.12 [place] [address] [facility] [id number] [address] [place] [id number] Oct, [facility] [address] [facility] [id number] [address] [place] [id number] Oct, [place] [address] [facility] [id number] [address] [place] [phone] Aug, [facility] [address] [facility] [id number] [address] [place] [phone] Aug, [facility] [address] [facility] [id number] [address] [place] [id number] Jul, Strain of lumbar region, ini tial encounter S39.012A [facility] [address] [id number] [address] [place] [id number] Jul, Lumbago with sciatica, left side M54.42 and Lumbago with sciatica, right side M54.41 [facility] [address] [facility] [id number] [address] [place] [id number] Jul, Low back pain M54.5 and Othe r chronic pain G89.29 [facility] [address] [place] [id number] [address] [place] [id number] Jul, [facility] [address] [place] [id number] [place] [address] Jul, Bipolar 2 disorder F31.81 ; Attention deficit disorder F90.0 and Social anxiety disorder F40.10 [facility] [address] [place] [id number] [place] [id number] Jun, [facility] [address] [place] [id number] [place] [address] May, [facility] [address] [place] [id number] [place] [address] Apr, Bipolar 2 disorder F31.81 ; Attention deficit disorder F90.0 ; Social anxiety disorder F40.10 and Chronic post-traumatic stress disorder (PTSD) F43.12 [place] [address] [address] Apr, [facility] [address] [address] Apr, Hyperlipidemia E78.5 [facility] [address] [place] [id number] [place] [id number] Mar, Encounter for immunization Z 23 and Tinea cruris B35.6 [facility] [id number] [place] [id number] Mar, [facility] [address] [place] [id number] [place] [address] Jan, [facility] [address] [place] [id number] [address] [place] [phone] Dec, [facility] [address] [place] [id number] [address] [place] [id number] Dec, [facility] [address] [place] [id number] [address] [place] [id number] Dec, Bipolar 2 disorder F31.81 ; Social anxiety disorder F40.10 and Attention deficit disorder F90.0 [facility] [address] [id number] [address] [place] [id number] Dec, [facility] [address] [id number] [address] [place] [id number] Dec, Hypertension I10 [facility] [address] [id number] [address] [place] [phone] October, [facility] [address] [id number] [address] [place] [phone] Oct, [facility] [address] [id number] [address] [place] [id number] Oct, Nasal congestion R09.81 [facility] [address] [facility] [id number] [address] [place] [id number] Oct, Social anxiety disorder F40. 10 ; Bipolar 2 disorder F31.81 and Attention deficit disorder F90.0 [facility] [address] [id number] [address] [place] [id number] Aug, [facility] [address] [facility] [id number] [address] [place] [phone] Aug, [facility] [address] [facility] [id number] [address] [place] [id number] Jul, Nasal congestion R09.81 [facility] [address] [facility] [id number] [address] [place] [id number] Jul, [facility] [address] [facility] [id number] [address] [place] [phone] Jun, Bipolar 2 disorder F31.81 ; Attention deficit disorder F90.0 ; Social anxiety disorder F40.10 and Chronic post-traumatic stress disorder (PTSD) F43.12 [facility] [address] [id number] [address] [place] [phone] Jun, [facility] [address] [facility] [id number] [address] [place] [phone] May, [facility] [address] [facility] [id number] [address] [place] [phone] Apr, Attention deficit disorder F 90.0 [facility] [address] [place] [id number] [address] [place] [phone] Apr, Urinary hesitancy R39.11 ; H yperlipidemia E78.5 and Encounter for immunization Z23 [facility] [address] [facility] [id number] [address] [place] [id number] Apr, [facility] [address] [place] [id number] [address] [place] [phone] Mar, [facility] [address] [place] [id number] [place] [phone] Jan, [facility] [address] [place] [id number] [place] [id number] Dec, [facility] [address] [place] [id number] [address] [place] [phone] Dec, [facility] [address] [place] [id number] [address] [place] [id number] Dec, Bipolar 2 disorder F31.81 ; Attention deficit disorder F90.0 ; Posttraumatic stress disorder F43.10 and Social anxiety disorder F40.10 [facility] [address] [facility] [id number] [address] [place] [id number] Dec, Scabies exposure Z20.89 and Scabies B86 [facility] [address] [facility] [id number] [address] [place] [phone] Dec, [facility] [address] [place] [id number] [address] [place] [phone] Dec, Hypertension I10 and Gastroe sophageal reflux disease without esophagitis K21.9 [facility] [address] [place] [id number] [address] [place] [phone] October, [facility] [address] [place] [id number] [address] [place] [phone] October, [facility] [address] [facility] [id number] [address] [place] [id number] Oct, Bipolar 2 disorder F31.81 ; Posttraumatic stress disorder F43.10 ; Attention deficit disorder F90.0 and Social anxiety disorder F40.10 [facility] [address] [place] [id number] [place] [phone] Oct, [facility] [address] [place] [id number] [place] [phone] Oct, Hypertension I10 and Nasal c ongestion R09.81 [facility] [address] [facility] [id number] [place] [phone] Aug, [facility] [address] [place] [id number] [place] [phone] Aug, [facility] [address] [address] Aug, [facility] [address] [place] [id number] [address] [place] [phone] Aug, [facility] [address] [address] Aug, [facility] [address] [address] Aug, Hypertension I10 and Tremor R25.1 [facility] [address] [place] [id number] [address] [place] [phone] Aug, Bipolar 2 disorder F31.81 ; Posttraumatic stress disorder F43.10 ; Attention deficit disorder F90.0 and Social anxiety disorder F40.10 [facility] [address] [place] [id number] [address] [place] [phone] Jul, [facility] [address] [address] Jul, Hyperlipidemia E78.5 [facility] [address] [place] [id number] [address] [place] [id number] Jul, Hypertension I10 and Hyperli pidemia E78.5 [facility] [address] [place] [id number] [address] [place] [id number] Jun, Bipolar 2 disorder F31.81 ; Posttraumatic stress disorder F43.10 ; Attention deficit disorder F90.0 and Social anxiety disorder F40.10 [facility] [address] [address] May, [facility] [address] [place] [id number] [place] [address] May, [facility] [address] [place] [id number] [place] [address] Apr, Bipolar 2 disorder F31.81 ; Posttraumatic stress disorder F43.10 ; Attention deficit disorder F90.0 and Social phobia F40.10 [facility] [address] [address] Apr, Bipolar 2 disorder F31.81 ; Posttraumatic stress disorder F43.10 and Attention deficit disorder F90.0 [facility] [address] [address] Apr, [facility] [address] [place] [id number] [place] [address] Apr, [facility] [address] [place] [id number] [address] [place] [id number] Apr, [facility] [address] [place] [id number] [address] [place] [phone] Mar, [facility] [address] [address] Mar, [facility] [address] [place] [id number] [address] [place] [id number] Jan, [facility] [address] [place] [id number] [address] [place] [id number] Jan, [facility] [address] [facility] [id number] [address] [place] [id number] Jan, Bipolar II disorder 296.89 ; Posttraumatic stress disorder 309.81 ; Social phobia 300.23 and Attention deficit disorder of childhood without mention of hyperactivity 314.00 [facility] [address] [facility] [id number] [address] [place] [id number] Jan, Other and unspecified bipola r disorders 296.89 ; Posttraumatic stress disorder 309.81 and Attention deficit disorder of childhood without mention of hyperactivity 314.00 [facility] [address] [facility] [id number] [address] [place] [id number] Jan, [facility] [address] [facility] [id number] [address] [place] [id number] Dec, Other and unspecified bipola r disorders 296.89 ; Posttraumatic stress disorder 309.81 and Attention deficit disorder of childhood without mention of hyperactivity 314.00 [facility] [address] [facility] [id number] [address] [place] [id number] Dec, Migraines 346.90 [facility] [address] [facility] [id number] [address] [place] [id number] Dec, Other and unspecified bipola r disorders 296.89 ; Posttraumatic stress disorder 309.81 and Attention deficit disorder of childhood without mention of hyperactivity 314.00 [facility] [address] [facility] [id number] [address] [place] [id number] Dec, [facility] [address] [facility] [id number] [address] [place] [id number] Dec, Bipolar II disorder 296.89 ; Social phobia 300.23 ; Posttraumatic stress disorder 309.81 and Attention deficit disorder of childhood without mention of hyperactivity 314.00 [facility] [address] [facility] [id number] [address] [place] [id number] Dec, Other and unspecified bipola r disorders 296.89 ; Posttraumatic stress disorder 309.81 and Attention deficit disorder of childhood without mention of hyperactivity 314.00 [facility] [address] [facility] [id number] [address] [place] [id number] October, Other and unspecified bipola r disorders 296.89 ; Posttraumatic stress disorder 309.81 and Attention deficit disorder of childhood without mention of hyperactivity 314.00 [facility] [address] [id number] [address] [place] [id number] October, [facility] [address] [id number] [address] [place] [phone] October, [facility] [address] [id number] [address] [place] [phone] October, [facility] [address] [id number] [address] [place] [phone] October, [facility] [address] [id number] [address] [place] [phone] October, Attention deficit disorder o f childhood without mention of hyperactivity 314.00 ; Posttraumatic stress disorder 309.81 ; Social phobia 300.23 and Other and unspecified bipolar disorders 296.89 [facility] [address] [id number] [address] [place] [phone] Oct, [facility] [address] [id number] [address] [place] [id number] Oct, [facility] [address] [facility] [id number] [address] [place] [phone] Aug, [facility] [address] [id number] [address] [place] [phone] Aug, [facility] [address] [id number] [address] [place] [phone] Aug, [facility] [address] [id number] [address] [place] [phone] Aug, [facility] [address] [facility] [id number] [address] [place] [phone] Aug, [facility] [address] [id number] [address] [place] [phone] Aug, [facility] [address] [id number] [facility] [place] [address] 17 Aug, 2014 [facility] [address] [id number] [facility] [place] [address] 17 Aug, 2014 [facility] [address] [id number] [facility] [place] [address] 17 Aug, 2014 [facility] [address] [id number] [address] [place] [address], [place] [address] 17 Aug, 2014 [facility] [address] [id number] [address] [place] [address], [place] [address] 13 Aug, 2014 [facility] [address] [id number] [address] [place] [address], [place] [address] 13 Aug, 2014 [facility] [address] [id number] [address] [place] [address], [place] [address] 12 Aug, 2014 [facility] [address] [id number] [address] [place] [address], [place] [address] 12 Aug, 2014 [facility] [address] [id number] [address] [place] [address], [place] [address] Aug, [facility] [address] [id number] [address] [place] [address], [place] [address] Aug, [facility] [address] [id number] [address] [place] [address], [place] [address] Aug, [facility] [address] [id number] [address] [place] [address], [place] [address] Aug, [facility] [address] [id number] [address] [place] [address], [place] [address] Aug, [facility] [address] [id number] [address] [place] [address], [place] [address] Aug, [facility] [address] [id number] [address] [place] [address], [place] [address] 04 Aug, 2014 [facility] [address] [id number] [address] [place] [address], [place] [address] Aug, [facility] [address] [id number] [address] [place] [address], [place] [address] Aug, [facility] [address] [id number] [address] [place] [address], [place] [address] Aug, [facility] [address] [id number] [address] [place] [address], [place] [address] Aug, [facility] [address] [id number] [address] [place] [address], [place] [address] Aug, [facility] [address] [id number] [address] [place] [address], [place] [address] Aug, [facility] [address] [id number] [address] [place] [address], [place] [address] Aug, [facility] [address] [id number] [address] [place] [address], [place] [address] Aug, [facility] [address] [id number] [address] [place] [address], [place] [address] Aug, [facility] [address] [id number] [address] [place] [address], [place] [address] Jul, [facility] [address] [id number] [address] [place] [address], [place] [address] Jul, [facility] [address] [id number] [address] [place] [address], [place] [address] Jul, [facility] [address] [id number] [address] [place] [address], [place] [address] Jul, [facility] [address] [id number] [address] [place] [address], [place] [address] Jul, [facility] [address] [id number] [address] [place] [address], [place] [address] Jul, [facility] [address] [id number] [address] [place] [address], [place] [address] Jul, [facility] [address] [id number] [address] [place] [id number] Jul, [facility] [address] [id number] [address] [place] [id number] Jun, [facility] [address] [id number] [address] [place] [id number] Jun, [facility] [address] [id number] [address] [place] [id number] Jun, [facility] [address] [id number] [address] [place] [id number] Jun, [facility] [address] [id number] [address] [place] [id number] May, [facility] [address] [id number] [address] [place] [id number] May, [facility] [address] [address] [id number] [address] [place] [id number] May, [facility] [address] [id number] [address] [place] [id number] May, [facility] [address] [id number] [address] [place] [id number] May, [facility] [address] [id number] [address] [place] [id number] Apr, [facility] [address] [id number] [address] [place] [id number] Apr, IMMUNIZATIONS No Known Immunizations SOCIAL HISTORY [...]
--- OUTSIDE RECORDS SUMMARY | 2019-11-11 19:08 | XMS REPORT ---
Author Author [facility] Address [address] [place] [address] Care Team Providers Care Charging Board Operator Name Role Phone GUILLERMO M[facility] Unavailable PROBLEMS Type Condition ICD9-CM Code [id number] Code Onset Dates Condition S tatus SNOMED Code Problem Social anxiety disorder F40.10 Active 39351975 Problem Hyperlipidemia E78.5 Active 84748 004 Problem Hypertension I10 Active 1409875 3 Problem Pure hypercholesterolemia E78.00 Acti ve 207329203 Problem Attention deficit disorder F90.0 Act shalom 819946518 Problem PTSD (post-traumatic stress disorder) F43.10 Active 24544465 Problem Bipolar 2 disorder F31.81 Active 8 0177670 Problem Chronic post-traumatic stress disorder (PTSD) F43. 12 Active 316108896 Problem Other chronic pain G89.29 Active 8 6233403 Problem Lumbago with sciatica, left side M54.42 Active 752751511 Problem Lumbago with sciatica, right side M54.41 Active [id number] ALLERGIES No Information ENCOUNTERS Encounter Location Date Diagnosis [facility] [address] [facility] [id number] [address] [place] [address] Jan, [facility] [address] [facility] [id number] [address] [place] [address] Dec, [facility] [address] [facility] [id number] [address] [place] [address] Dec, Bipolar 2 disorder F31.81 [facility] [address] [facility] [id number] [address] [place] [address] Dec, [facility] [address] [facility] [id number] [address] [place] [address] Dec, Bipolar 2 disorder F31.81 [facility] [address] [place] [id number] [address] [place] [address] Oct, Bipolar 2 disorder F31.81 [facility] [address] [place] [id number] [place] [address] Oct, Bipolar 2 disorder F31.81 ; Attention deficit disorder F90.0 ; Social anxiety disorder F40.10 and Chronic post-traumatic stress disorder (PTSD) F43.12 [facility] [address] [place] [id number] [address] [place] [address] Aug, Lumbago with sciatica, left side M54.42 and Lumbago with sciatica, right side M54.41 [facility] [address] [place] [id number] [place] [address] Aug, Bipolar 2 disorder F31.81 [facility] [address] [place] [id number] [place] [address] Aug, Bipolar 2 disorder F31.81 [facility] [address] [id number] [place] [address] Aug, Bipolar 2 disorder F31.81 ; Attention deficit disorder F90.0 ; Social anxiety disorder F40.10 and PTSD (post-traumatic stress disorder) F43.10 [facility] [address] [place] [id number] [address] [place] [address] Jul, [facility] [address] [place] [id number] [address] [place] [address] Jun, Nasal congestion R09.81 ; Ac [place] nonintractable headache, unspecified headache type R51 and Viral upper respiratory tract infection J06.9 [facility] [address] [place] [id number] [address] [place] [address] Jun, [facility] [address] [id number] [place] [address] May, [facility] [address] [place] [id number] [address] [place] [address] May, [place] [address] [place] [id number] [place] [address] May, Bipolar 2 disorder F31.81 ; Social anxiety disorder F40.10 ; Chronic post-traumatic stress disorder (PTSD) F43.12 ; Attention deficit disorder F90.0 and Encounter for immunization Z23 [facility] [address] [address] Apr, [facility] [address] [place] [id number] [place] [address] Apr, Body aches R52 and Acute chely opharyngitis J00 [place] [address] [address] 24 Mar, 2018 Pure hypercholesterolemia E7 8.00 and Exertional chest pain R07.9 [place] [address] [address] Mar, Hyperlipidemia E78.5 ; Hyper tension I10 and Routine adult health maintenance Z00.00 [place] [address] [address] 20 Mar, 2018 Hypertension I10 ; Hyperlipi demia E78.5 ; Chest pain, exertional R07.9 and Routine adult health maintenance Z00.00 [place] [address] [place] [id number] [place] [address] 17 Mar, 2018 [place] [address] [address] Mar, Lumbago with sciatica, left side M54.42 and Lumbago with sciatica, right side M54.41 [place] [address] [address] Jan, [place] [address] [place] [id number] [place] [address] Dec, Bipolar 2 disorder F31.81 ; Social anxiety disorder F40.10 and Chronic post-traumatic stress disorder (PTSD) F43.12 [place] [address] [id number] [address] [place] [address] Dec, [facility] [address] [facility] [id number] [address] [place] [address] Dec, [facility] [address] [facility] [id number] [address] [place] [address] Dec, Upper respiratory tract infe ction, unspecified type J06.9 [facility] [address] [id number] [address] [place] [address] October, [facility] [address] [id number] [address] [place] [address] Oct, Bipolar 2 disorder F31.81 ; Attention deficit disorder F90.0 ; Social anxiety disorder F40.10 and Chronic post-traumatic stress disorder (PTSD) F43.12 [place] [address] [facility] [id number] [address] [place] [address] Oct, [facility] [address] [facility] [id number] [address] [place] [address] Oct, [place] [address] [facility] [id number] [address] [place] [address] Aug, [facility] [address] [facility] [id number] [address] [place] [address] Aug, [facility] [address] [facility] [id number] [address] [place] [address] Jul, Strain of lumbar region, ini tial encounter S39.012A [facility] [address] [id number] [address] [place] [address] Jul, Lumbago with sciatica, left side M54.42 and Lumbago with sciatica, right side M54.41 [facility] [address] [facility] [id number] [address] [place] [address] Jul, Low back pain M54.5 and Othe r chronic pain G89.29 [facility] [address] [place] [id number] [place] [address] Jul, [facility] [address] [place] [id number] [place] [address] Jul, Bipolar 2 disorder F31.81 ; Attention deficit disorder F90.0 and Social anxiety disorder F40.10 [facility] [address] [place] [id number] [place] [address] Jun, [facility] [address] [place] [id number] [place] [address] May, [facility] [address] [place] [id number] [place] [address] Apr, Bipolar 2 disorder F31.81 ; Attention deficit disorder F90.0 ; Social anxiety disorder F40.10 and Chronic post-traumatic stress disorder (PTSD) F43.12 [place] [address] [address] Apr, [facility] [address] [address] Apr, Hyperlipidemia E78.5 [facility] [address] [place] [id number] [place] [address] Mar, Encounter for immunization Z 23 and Tinea cruris B35.6 [facility] [id number] [place] [address] Mar, [facility] [address] [place] [id number] [place] [address] Jan, [facility] [address] [place] [id number] [place] [address] Dec, [facility] [address] [place] [id number] [place] [address] Dec, [facility] [address] [place] [id number] [place] [address] Dec, Bipolar 2 disorder F31.81 ; Social anxiety disorder F40.10 and Attention deficit disorder F90.0 [facility] [address] [id number] [address] [place] [address] Dec, [facility] [address] [id number] [address] [place] [address] Dec, Hypertension I10 [facility] [address] [id number] [address] [place] [address] October, [facility] [address] [id number] [address] [place] [address] Oct, [facility] [address] [id number] [address] [place] [address] Oct, Nasal congestion R09.81 [facility] [address] [facility] [id number] [address] [place] [address] Oct, Social anxiety disorder F40. 10 ; Bipolar 2 disorder F31.81 and Attention deficit disorder F90.0 [facility] [address] [id number] [address] [place] [address] Aug, [facility] [address] [facility] [id number] [address] [place] [address] Aug, [facility] [address] [facility] [id number] [address] [place] [address] Jul, Nasal congestion R09.81 [facility] [address] [facility] [id number] [address] [place] [address] Jul, [facility] [address] [facility] [id number] [address] [place] [address] Jun, Bipolar 2 disorder F31.81 ; Attention deficit disorder F90.0 ; Social anxiety disorder F40.10 and Chronic post-traumatic stress disorder (PTSD) F43.12 [facility] [address] [id number] [address] [place] [address] Jun, [facility] [address] [facility] [id number] [address] [place] [address] May, [facility] [address] [facility] [id number] [address] [place] [address] Apr, Attention deficit disorder F 90.0 [facility] [address] [place] [id number] [place] [address] Apr, Urinary hesitancy R39.11 ; H yperlipidemia E78.5 and Encounter for immunization Z23 [facility] [address] [facility] [id number] [address] [place] [address] Apr, [facility] [address] [place] [id number] [place] [address] Mar, [facility] [address] [place] [id number] [place] [address] Jan, [facility] [address] [place] [id number] [place] [address] Dec, [facility] [address] [place] [id number] [place] [address] Dec, [facility] [address] [place] [id number] [place] [address] Dec, Bipolar 2 disorder F31.81 ; Attention deficit disorder F90.0 ; Posttraumatic stress disorder F43.10 and Social anxiety disorder F40.10 [facility] [address] [facility] [id number] [address] [place] [address] Dec, Scabies exposure Z20.89 and Scabies B86 [facility] [address] [facility] [id number] [address] [place] [address] Dec, [facility] [address] [place] [id number] [place] [address] Dec, Hypertension I10 and Gastroe sophageal reflux disease without esophagitis K21.9 [facility] [address] [place] [id number] [place] [address] October, [facility] [address] [place] [id number] [place] [address] October, [facility] [address] [facility] [id number] [address] [place] [address] Oct, Bipolar 2 disorder F31.81 ; Posttraumatic stress disorder F43.10 ; Attention deficit disorder F90.0 and Social anxiety disorder F40.10 [facility] [address] [place] [id number] [place] [address] Oct, [facility] [address] [place] [id number] [place] [address] Oct, Hypertension I10 and Nasal c ongestion R09.81 [facility] [address] [facility] [id number] [place] [address] Aug, [facility] [address] [place] [id number] [place] [address] Aug, [facility] [address] [address] Aug, [facility] [address] [place] [id number] [place] [address] Aug, [facility] [address] [address] Aug, [facility] [address] [address] Aug, Hypertension I10 and Tremor R25.1 [facility] [address] [place] [id number] [place] [address] Aug, Bipolar 2 disorder F31.81 ; Posttraumatic stress disorder F43.10 ; Attention deficit disorder F90.0 and Social anxiety disorder F40.10 [facility] [address] [place] [id number] [place] [address] Jul, [facility] [address] [address] Jul, Hyperlipidemia E78.5 [facility] [address] [place] [id number] [place] [address] Jul, Hypertension I10 and Hyperli pidemia E78.5 [facility] [address] [place] [id number] [place] [address] Jun, Bipolar 2 disorder F31.81 ; Posttraumatic stress disorder F43.10 ; Attention deficit disorder F90.0 and Social anxiety disorder F40.10 [facility] [address] [address] May, [facility] [address] [place] [id number] [place] [address] May, [facility] [address] [place] [id number] [place] [address] Apr, Bipolar 2 disorder F31.81 ; Posttraumatic stress disorder F43.10 ; Attention deficit disorder F90.0 and Social phobia F40.10 [facility] [address] [address] Apr, Bipolar 2 disorder F31.81 ; Posttraumatic stress disorder F43.10 and Attention deficit disorder F90.0 [facility] [address] [address] Apr, [facility] [address] [place] [id number] [place] [address] Apr, [facility] [address] [place] [id number] [place] [address] Apr, [facility] [address] [place] [id number] [place] [address] Mar, [facility] [address] [address] Mar, [facility] [address] [place] [id number] [place] [address] Jan, [facility] [address] [place] [id number] [place] [address] Jan, [facility] [address] [facility] [id number] [address] [place] [address] Jan, Bipolar II disorder 296.89 ; Posttraumatic stress disorder 309.81 ; Social phobia 300.23 and Attention deficit disorder of childhood without mention of hyperactivity 314.00 [facility] [address] [facility] [id number] [address] [place] [address] Jan, Other and unspecified bipola r disorders 296.89 ; Posttraumatic stress disorder 309.81 and Attention deficit disorder of childhood without mention of hyperactivity 314.00 [facility] [address] [facility] [id number] [address] [place] [address] Jan, [facility] [address] [facility] [id number] [address] [place] [address] Dec, Other and unspecified bipola r disorders 296.89 ; Posttraumatic stress disorder 309.81 and Attention deficit disorder of childhood without mention of hyperactivity 314.00 [facility] [address] [facility] [id number] [address] [place] [address] Dec, Migraines 346.90 [facility] [address] [facility] [id number] [address] [place] [address] Dec, Other and unspecified bipola r disorders 296.89 ; Posttraumatic stress disorder 309.81 and Attention deficit disorder of childhood without mention of hyperactivity 314.00 [facility] [address] [facility] [id number] [address] [place] [address] Dec, [facility] [address] [facility] [id number] [address] [place] [address] Dec, Bipolar II disorder 296.89 ; Social phobia 300.23 ; Posttraumatic stress disorder 309.81 and Attention deficit disorder of childhood without mention of hyperactivity 314.00 [facility] [address] [facility] [id number] [address] [place] [address] Dec, Other and unspecified bipola r disorders 296.89 ; Posttraumatic stress disorder 309.81 and Attention deficit disorder of childhood without mention of hyperactivity 314.00 [facility] [address] [facility] [id number] [address] [place] [address] October, Other and unspecified bipola r disorders 296.89 ; Posttraumatic stress disorder 309.81 and Attention deficit disorder of childhood without mention of hyperactivity 314.00 [facility] [address] [id number] [address] [place] [address] October, [facility] [address] [id number] [address] [place] [address] October, [facility] [address] [id number] [address] [place] [address] October, [facility] [address] [id number] [address] [place] [address] October, [facility] [address] [id number] [address] [place] [address] October, Attention deficit disorder o f childhood without mention of hyperactivity 314.00 ; Posttraumatic stress disorder 309.81 ; Social phobia 300.23 and Other and unspecified bipolar disorders 296.89 [facility] [address] [id number] [address] [place] [address] Oct, [facility] [address] [id number] [address] [place] [address] Oct, [facility] [address] [facility] [id number] [address] [place] [address] Aug, [facility] [address] [id number] [address] [place] [address] Aug, [facility] [address] [id number] [address] [place] [address] Aug, [facility] [address] [id number] [address] [place] [address] Aug, [facility] [address] [facility] [id number] [address] [place] [address] Aug, [facility] [address] [id number] [address] [place] [address] Aug, [facility] [address] [id number] [facility] [address] 17 Aug, 2014 [facility] [address] [id number] [facility] [address] 17 Aug, 2014 [facility] [address] [id number] [facility] [place] [address] 17 Aug, 2014 [facility] [address] [id number] [address] [place] [address], [place] [address] 17 Aug, 2014 [facility] [address] [id number] [address] [place] [address], [place] [address] 13 Aug, 2014 [facility] [address] [id number] [address] [place] [address], [place] [address] 13 Aug, 2014 [facility] [address] [id number] [address] [place] [address], [place] [address] 12 Aug, 2014 [facility] [address] [id number] [address] [place] [address], [place] [address] 12 Aug, 2014 [facility] [address] [id number] [address] [place] [address], [place] [address] Aug, [facility] [address] [id number] [address] [place] [address], [place] [address] Aug, [facility] [address] [id number] [address] [place] [address], [place] [address] Aug, [facility] [address] [id number] [address] [place] [address], [place] [address] Aug, [facility] [address] [id number] [address] [place] [address], [place] [address] Aug, [facility] [address] [id number] [address] [place] [address], [place] [address] Aug, [facility] [address] [id number] [address] [place] [address], [place] [address] 04 Aug, 2014 [facility] [address] [id number] [address] [place] [address], [place] [address] Aug, [facility] [address] [id number] [address] [place] [address], [place] [address] Aug, [facility] [address] [id number] [address] [place] [address], [place] [address] Aug, [facility] [address] [id number] [address] [place] [address], [place] [address] Aug, [facility] [address] [id number] [address] [place] [address], [place] [address] Aug, [facility] [address] [id number] [address] [place] [address], [place] [address] Aug, [facility] [address] [id number] [address] [place] [address], [place] [address] Aug, [facility] [address] [id number] [address] [place] [address], [place] [address] Aug, [facility] [address] [id number] [address] [place] [address], [place] [address] Aug, [facility] [address] [id number] [address] [place] [address], [place] [address] Jul, [facility] [address] [id number] [address] [place] [address], [place] [address] Jul, [facility] [address] [id number] [address] [place] [address], [place] [address] Jul, [facility] [address] [id number] [address] [place] [address], [place] [address] Jul, [facility] [address] [id number] [address] [place] [address], [place] [address] Jul, [facility] [address] [id number] [address] [place] [address], [place] [address] Jul, [facility] [address] [id number] [address] [place] [address], [place] [address] Jul, [facility] [address] [id number] [address] [place] [address] Jul, [facility] [address] [id number] [address] [place] [address] Jun, [facility] [address] [id number] [address] [place] [id number] Jun, [facility] [address] [id number] [address] [place] [id number] Jun, [facility] [address] [id number] [address] [place] [id number] Jun, [facility] [address] [id number] [address] [place] [address] May, [facility] [address] [address] [id number] [address] [place] [id number] May, [facility] [address] [id number] [address] [place] [phone] May, [facility] [address] [id number] [address] [place] [id number] May, [facility] [address] [id number] [address] [place] [id number] May, [facility] [address] [id number] [address] [place] [id number] Apr, [facility] [address] [id number] [address] [place] [id number] Apr, IMMUNIZATIONS No Known Immunizations SOCIAL HISTORY [...]
--- OUTSIDE RECORDS SUMMARY | 2019-11-11 19:08 | XMS REPORT ---
Author Author [place] [facility] Address [address] [place] [address] Care Team Providers Care Helper Shear Operator Name Role Phone GUILLERMO MCCORD Unavailable PROBLEMS Type Condition ICD9-CM Code [id number] Code Onset Dates Condition S tatus SNOMED Code Problem Social anxiety disorder F40.10 Active 19391258 Problem Hyperlipidemia E78.5 Active 07355 004 Problem Hypertension I10 Active 1237170 3 Problem Pure hypercholesterolemia E78.00 Acti ve 930703310 Problem Attention deficit disorder F90.0 Act shalom 997517084 Problem PTSD (post-traumatic stress disorder) F43.10 Active 57073241 Problem Bipolar 2 disorder F31.81 Active 8 1831080 Problem Chronic post-traumatic stress disorder (PTSD) F43. 12 Active 430308829 Problem Other chronic pain G89.29 Active 8 7050993 Problem Lumbago with sciatica, left side M54.42 Active 873267542 Problem Lumbago with sciatica, right side M54.41 Active [id number] ALLERGIES No Information ENCOUNTERS Encounter Location Date Diagnosis [facility] [address] [facility] [id number] [address] [place] [phone] Jan, [facility] [address] [facility] [id number] [address] [place] [address] Dec, [facility] [address] [facility] [id number] [address] [place] [address] Dec, Bipolar 2 disorder F31.81 [facility] [address] [facility] [id number] [address] [place] [id number] Dec, [facility] [address] [facility] [id number] [address] [place] [address] Dec, Bipolar 2 disorder F31.81 [facility] [address] [place] [id number] [address] [place] [phone] Oct, Bipolar 2 disorder F31.81 [facility] [address] [place] [id number] [place] [address] Oct, Bipolar 2 disorder F31.81 ; Attention deficit disorder F90.0 ; Social anxiety disorder F40.10 and Chronic post-traumatic stress disorder (PTSD) F43.12 [facility] [address] [place] [id number] [address] [place] [address] Aug, Lumbago with sciatica, left side M54.42 and Lumbago with sciatica, right side M54.41 [facility] [address] [place] [id number] [place] [address] Aug, Bipolar 2 disorder F31.81 [facility] [address] [place] [id number] [place] [address] Aug, Bipolar 2 disorder F31.81 [facility] [address] [place] [id number] [place] [address] Aug, Bipolar 2 disorder F31.81 ; Attention deficit disorder F90.0 ; Social anxiety disorder F40.10 and PTSD (post-traumatic stress disorder) F43.10 [facility] [address] [place] [id number] [address] [place] [phone] Jul, [facility] [address] [place] [id number] [address] [place] [address] Jun, Nasal congestion R09.81 ; Ac tlingit & haida nonintractable headache, unspecified headache type R51 and Viral upper respiratory tract infection J06.9 [facility] [address] [place] [id number] [address] [place] [phone] Jun, [facility] [address] [place] [id number] [place] [address] May, [facility] [address] [place] [id number] [address] [place] [address] May, [place] [address] [place] [id number] [place] [address] May, Bipolar 2 disorder F31.81 ; Social anxiety disorder F40.10 ; Chronic post-traumatic stress disorder (PTSD) F43.12 ; Attention deficit disorder F90.0 and Encounter for immunization Z23 [facility] [address] [address] Apr, [facility] [address] [place] [id number] [place] [address] Apr, Body aches R52 and Acute chely opharyngitis J00 [place] [address] [address] 24 Mar, 2018 Pure hypercholesterolemia E7 8.00 and Exertional chest pain R07.9 [place] [address] [address] Mar, Hyperlipidemia E78.5 ; Hyper tension I10 and Routine adult health maintenance Z00.00 [place] [address] [address] 20 Mar, 2018 Hypertension I10 ; Hyperlipi demia E78.5 ; Chest pain, exertional R07.9 and Routine adult health maintenance Z00.00 [place] [address] [place] [id number] [place] [id number] 17 Mar, 2018 [place] [address] [address] Mar, Lumbago with sciatica, left side M54.42 and Lumbago with sciatica, right side M54.41 [place] [address] [address] Jan, [place] [address] [place] [id number] [place] [address] Dec, Bipolar 2 disorder F31.81 ; Social anxiety disorder F40.10 and Chronic post-traumatic stress disorder (PTSD) F43.12 [place] [address] [id number] [address] [place] [id number] Dec, [facility] [address] [facility] [id number] [address] [place] [address] Dec, [facility] [address] [facility] [id number] [address] [place] [address] Dec, Upper respiratory tract infe ction, unspecified type J06.9 [facility] [address] [id number] [address] [place] [id number] October, [facility] [address] [id number] [address] [place] [address] Oct, Bipolar 2 disorder F31.81 ; Attention deficit disorder F90.0 ; Social anxiety disorder F40.10 and Chronic post-traumatic stress disorder (PTSD) F43.12 [place] [address] [facility] [id number] [address] [place] [address] Oct, [facility] [address] [facility] [id number] [address] [place] [phone] Oct, [place] [address] [facility] [id number] [address] [place] [address] Aug, [facility] [address] [facility] [id number] [address] [place] [address] Aug, [facility] [address] [facility] [id number] [address] [place] [address] Jul, Strain of lumbar region, ini tial encounter S39.012A [facility] [address] [id number] [address] [place] [address] Jul, Lumbago with sciatica, left side M54.42 and Lumbago with sciatica, right side M54.41 [facility] [address] [facility] [id number] [address] [place] [id number] Jul, Low back pain M54.5 and Othe r chronic pain G89.29 [facility] [address] [place] [id number] [address] [place] [address] Jul, [facility] [address] [place] [id number] [place] [address] Jul, Bipolar 2 disorder F31.81 ; Attention deficit disorder F90.0 and Social anxiety disorder F40.10 [facility] [address] [place] [id number] [place] [address] Jun, [facility] [address] [place] [id number] [place] [address] May, [facility] [address] [place] [id number] [place] [address] Apr, Bipolar 2 disorder F31.81 ; Attention deficit disorder F90.0 ; Social anxiety disorder F40.10 and Chronic post-traumatic stress disorder (PTSD) F43.12 [place] [address] [address] Apr, [facility] [address] [address] Apr, Hyperlipidemia E78.5 [facility] [address] [place] [id number] [place] [phone] Mar, Encounter for immunization Z 23 and Tinea cruris B35.6 [facility] [id number] [place] [phone] Mar, [facility] [address] [place] [id number] [place] [address] Jan, [facility] [address] [place] [id number] [address] [place] [phone] Dec, [facility] [address] [place] [id number] [address] [place] [address] Dec, [facility] [address] [place] [id number] [place] [address] Dec, Bipolar 2 disorder F31.81 ; Social anxiety disorder F40.10 and Attention deficit disorder F90.0 [facility] [address] [id number] [address] [place] [address] Dec, [facility] [address] [id number] [address] [place] [address] Dec, Hypertension I10 [facility] [address] [id number] [address] [place] [phone] October, [facility] [address] [id number] [address] [place] [address] Oct, [facility] [address] [id number] [address] [place] [address] Oct, Nasal congestion R09.81 [facility] [address] [facility] [id number] [address] [place] [address] Oct, Social anxiety disorder F40. 10 ; Bipolar 2 disorder F31.81 and Attention deficit disorder F90.0 [facility] [address] [id number] [address] [place] [address] Aug, [facility] [address] [facility] [id number] [address] [place] [address] Aug, [facility] [address] [facility] [id number] [address] [place] [address] Jul, Nasal congestion R09.81 [facility] [address] [facility] [id number] [address] [place] [address] Jul, [facility] [address] [facility] [id number] [address] [place] [id number] Jun, Bipolar 2 disorder F31.81 ; Attention deficit disorder F90.0 ; Social anxiety disorder F40.10 and Chronic post-traumatic stress disorder (PTSD) F43.12 [facility] [address] [id number] [address] [place] [phone] Jun, [facility] [address] [facility] [id number] [address] [place] [phone] May, [facility] [address] [facility] [id number] [address] [place] [address] Apr, Attention deficit disorder F 90.0 [facility] [address] [place] [id number] [place] [phone] Apr, Urinary hesitancy R39.11 ; H yperlipidemia E78.5 and Encounter for immunization Z23 [facility] [address] [facility] [id number] [address] [place] [phone] Apr, [facility] [address] [place] [id number] [place] [phone] Mar, [facility] [address] [place] [id number] [place] [phone] Jan, [facility] [address] [place] [id number] [place] [address] Dec, [facility] [address] [place] [id number] [place] [address] Dec, [facility] [address] [place] [id number] [place] [address] Dec, Bipolar 2 disorder F31.81 ; Attention deficit disorder F90.0 ; Posttraumatic stress disorder F43.10 and Social anxiety disorder F40.10 [facility] [address] [facility] [id number] [address] [place] [address] Dec, Scabies exposure Z20.89 and Scabies B86 [facility] [address] [facility] [id number] [address] [place] [address] Dec, [facility] [address] [place] [id number] [place] [address] Dec, Hypertension I10 and Gastroe sophageal reflux disease without esophagitis K21.9 [facility] [address] [place] [id number] [place] [address] October, [facility] [address] [place] [id number] [place] [phone] October, [facility] [address] [facility] [id number] [address] [place] [address] Oct, Bipolar 2 disorder F31.81 ; Posttraumatic stress disorder F43.10 ; Attention deficit disorder F90.0 and Social anxiety disorder F40.10 [facility] [address] [place] [id number] [place] [address] Oct, [facility] [address] [place] [id number] [place] [address] Oct, Hypertension I10 and Nasal c ongestion R09.81 [facility] [address] [facility] [id number] [place] [phone] Aug, [facility] [address] [place] [id number] [place] [phone] Aug, [facility] [address] [address] Aug, [facility] [address] [place] [id number] [place] [address] Aug, [facility] [address] [address] Aug, [facility] [address] [address] Aug, Hypertension I10 and Tremor R25.1 [facility] [address] [place] [id number] [place] [address] Aug, Bipolar 2 disorder F31.81 ; Posttraumatic stress disorder F43.10 ; Attention deficit disorder F90.0 and Social anxiety disorder F40.10 [facility] [address] [place] [id number] [place] [address] Jul, [facility] [address] [address] Jul, Hyperlipidemia E78.5 [facility] [address] [place] [id number] [place] [address] Jul, Hypertension I10 and Hyperli pidemia E78.5 [facility] [address] [place] [id number] [place] [address] Jun, Bipolar 2 disorder F31.81 ; Posttraumatic stress disorder F43.10 ; Attention deficit disorder F90.0 and Social anxiety disorder F40.10 [facility] [address] [address] May, [facility] [address] [place] [id number] [place] [address] May, [facility] [address] [place] [id number] [place] [address] Apr, Bipolar 2 disorder F31.81 ; Posttraumatic stress disorder F43.10 ; Attention deficit disorder F90.0 and Social phobia F40.10 [facility] [address] [address] Apr, Bipolar 2 disorder F31.81 ; Posttraumatic stress disorder F43.10 and Attention deficit disorder F90.0 [facility] [address] [address] Apr, [facility] [address] [place] [id number] [place] [address] Apr, [facility] [address] [place] [id number] [address] [place] [address] Apr, [facility] [address] [place] [id number] [place] [address] Mar, [facility] [address] [address] Mar, [facility] [address] [place] [id number] [place] [address] Jan, [facility] [address] [place] [id number] [place] [id number] Jan, [facility] [address] [facility] [id number] [address] [place] [address] Jan, Bipolar II disorder 296.89 ; Posttraumatic stress disorder 309.81 ; Social phobia 300.23 and Attention deficit disorder of childhood without mention of hyperactivity 314.00 [facility] [address] [facility] [id number] [address] [place] [address] Jan, Other and unspecified bipola r disorders 296.89 ; Posttraumatic stress disorder 309.81 and Attention deficit disorder of childhood without mention of hyperactivity 314.00 [facility] [address] [facility] [id number] [address] [place] [address] Jan, [facility] [address] [facility] [id number] [address] [place] [address] Dec, Other and unspecified bipola r disorders 296.89 ; Posttraumatic stress disorder 309.81 and Attention deficit disorder of childhood without mention of hyperactivity 314.00 [facility] [address] [facility] [id number] [address] [place] [address] Dec, Migraines 346.90 [facility] [address] [facility] [id number] [address] [place] [address] Dec, Other and unspecified bipola r disorders 296.89 ; Posttraumatic stress disorder 309.81 and Attention deficit disorder of childhood without mention of hyperactivity 314.00 [facility] [address] [facility] [id number] [address] [place] [address] Dec, [facility] [address] [facility] [id number] [address] [place] [address] Dec, Bipolar II disorder 296.89 ; Social phobia 300.23 ; Posttraumatic stress disorder 309.81 and Attention deficit disorder of childhood without mention of hyperactivity 314.00 [facility] [address] [facility] [id number] [address] [place] [address] Dec, Other and unspecified bipola r disorders 296.89 ; Posttraumatic stress disorder 309.81 and Attention deficit disorder of childhood without mention of hyperactivity 314.00 [facility] [address] [facility] [id number] [address] [place] [address] October, Other and unspecified bipola r disorders 296.89 ; Posttraumatic stress disorder 309.81 and Attention deficit disorder of childhood without mention of hyperactivity 314.00 [facility] [address] [id number] [address] [place] [address] October, [facility] [address] [id number] [address] [place] [address] October, [facility] [address] [id number] [address] [place] [address] October, [facility] [address] [id number] [address] [place] [address] October, [facility] [address] [id number] [address] [place] [address] October, Attention deficit disorder o f childhood without mention of hyperactivity 314.00 ; Posttraumatic stress disorder 309.81 ; Social phobia 300.23 and Other and unspecified bipolar disorders 296.89 [facility] [address] [id number] [address] [place] [address] Oct, [facility] [address] [id number] [address] [place] [address] Oct, [facility] [address] [facility] [id number] [address] [place] [id number] Aug, [facility] [address] [id number] [address] [place] [phone] Aug, [facility] [address] [id number] [address] [place] [phone] Aug, [facility] [address] [id number] [address] [place] [address] Aug, [facility] [address] [facility] [id number] [address] [place] [id number] Aug, [facility] [address] [id number] [address] [place] [phone] Aug, [facility] [address] [id number] [facility] [place] [address] 17 Aug, 2014 [facility] [address] [id number] [facility] [place] [address] 17 Aug, 2014 [facility] [address] [id number] [facility] [place] [address] 17 Aug, 2014 [facility] [address] [id number] [address] [place] [address], [place] [address] 17 Aug, 2014 [facility] [address] [id number] [address] [place] [address], [place] [address] 13 Aug, 2014 [facility] [address] [id number] [address] [place] [address], [place] [address] 13 Aug, 2014 [facility] [address] [id number] [address] [place] [address], [place] [address] 12 Aug, 2014 [facility] [address] [id number] [address] [place] [address], [place] [address] 12 Aug, 2014 [facility] [address] [id number] [address] [place] [address], [place] [address] Aug, [facility] [address] [id number] [address] [place] [address], [place] [address] Aug, [facility] [address] [id number] [address] [place] [address], [place] [address] Aug, [facility] [address] [id number] [address] [place] [address], [place] [address] Aug, [facility] [address] [id number] [address] [place] [address], [place] [address] Aug, [facility] [address] [id number] [address] [place] [address], [place] [address] Aug, [facility] [address] [id number] [address] [place] [address], [place] [address] 04 Aug, 2014 [facility] [address] [id number] [address] [place] [address], [place] [address] Aug, [facility] [address] [id number] [address] [place] [address], [place] [address] Aug, [facility] [address] [id number] [address] [place] [address], [place] [address] Aug, [facility] [address] [id number] [address] [place] [address], [place] [address] Aug, [facility] [address] [id number] [address] [place] [address], [place] [address] Aug, [facility] [address] [id number] [address] [place] [address], [place] [address] Aug, [facility] [address] [id number] [address] [place] [address], [place] [address] Aug, [facility] [address] [id number] [address] [place] [address], [place] [address] Aug, [facility] [address] [id number] [address] [place] [address], [place] [address] Aug, [facility] [address] [id number] [address] [place] [address], [place] [address] Jul, [facility] [address] [id number] [address] [place] [address], [place] [address] Jul, [facility] [address] [id number] [address] [place] [address], [place] [address] Jul, [facility] [address] [id number] [address] [place] [address], [place] [address] Jul, [facility] [address] [id number] [address] [place] [address], [place] [address] Jul, [facility] [address] [id number] [address] [place] [address], [place] [id number] Jul, [facility] [address] [id number] [address] [place] [address], [place] [phone] Jul, [facility] [address] [id number] [address] [place] [phone] Jul, [facility] [address] [id number] [address] [place] [phone] Jun, [facility] [address] [id number] [address] [place] [phone] Jun, [facility] [address] [id number] [address] [place] [phone] Jun, [facility] [address] [id number] [address] [place] [phone] Jun, [facility] [address] [id number] [address] [place] [phone] May, [facility] [address] [id number] [address] [place] [phone] May, [facility] [address] [id number] [address] [place] [phone] May, [facility] [address] [id number] [address] [place] [phone] May, [facility] [address] [id number] [address] [place] [phone] May, [facility] [address] [id number] [address] [place] [phone] Apr, [facility] [address] [id number] [address] [place] [phone] Apr, IMMUNIZATIONS No Known Immunizations SOCIAL HISTORY [...]
--- OUTSIDE RECORDS SUMMARY | 2019-11-11 19:08 | XMS REPORT ---
Author Author [facility] Address [address] [place] [address] Care Team Providers Care Primary Care Coordinator Name Role Phone GUILLERMO MCCORD Unavailable PROBLEMS Type Condition ICD9-CM Code NKD31-EP Code Onset Dates Condition S tatus SNOMED Code Problem Social anxiety disorder F40.10 Active 77351481 Problem Hyperlipidemia E78.5 Active 84885 004 Problem Hypertension I10 Active 0355265 3 Problem Pure hypercholesterolemia E78.00 Acti ve 172546567 Problem Attention deficit disorder F90.0 Act shalom 006874540 Problem PTSD (post-traumatic stress disorder) F43.10 Active 47555782 Problem Bipolar 2 disorder F31.81 Active 8 2235054 Problem Chronic post-traumatic stress disorder (PTSD) F43. 12 Active 359620724 Problem Other chronic pain G89.29 Active 8 3190117 Problem Lumbago with sciatica, left side M54.42 Active 758629186 Problem Lumbago with sciatica, right side M54.41 Active [id number] ALLERGIES No Information ENCOUNTERS Encounter Location Date Diagnosis [facility] [address] [facility] [id number] [address] [place] [phone] Jan, [facility] [address] [facility] [id number] [address] [place] [phone] Dec, [facility] [address] [facility] [id number] [address] [place] [phone] Dec, Bipolar 2 disorder F31.81 [facility] [address] [facility] [id number] [address] [place] [phone] Dec, [facility] [address] [facility] [id number] [address] [place] [phone] Dec, Bipolar 2 disorder F31.81 [facility] [address] [place] [id number] [address] [place] [phone] Oct, Bipolar 2 disorder F31.81 [facility] [address] [place] [id number] [place] [address] Oct, Bipolar 2 disorder F31.81 ; Attention deficit disorder F90.0 ; Social anxiety disorder F40.10 and Chronic post-traumatic stress disorder (PTSD) F43.12 [facility] [address] [place] [id number] [address] [place] [phone] Aug, Lumbago with sciatica, left side M54.42 and Lumbago with sciatica, right side M54.41 [facility] [address] [place] [id number] [place] [address] Aug, Bipolar 2 disorder F31.81 [facility] [address] [place] [id number] [place] [address] Aug, Bipolar 2 disorder F31.81 [facility] [address] [place] [id number] [place] [address] Aug, Bipolar 2 disorder F31.81 ; Attention deficit disorder F90.0 ; Social anxiety disorder F40.10 and PTSD (post-traumatic stress disorder) F43.10 [facility] [address] [place] [id number] [address] [place] [phone] Jul, [facility] [address] [place] [id number] [address] [place] [address] Jun, Nasal congestion R09.81 ; Ac kasaan nonintractable headache, unspecified headache type R51 and Viral upper respiratory tract infection J06.9 [facility] [address] [place] [id number] [address] [place] [phone] Jun, [facility] [address] [id number] [place] [address] May, [facility] [address] [place] [id number] [address] [place] [phone] May, [place] [address] [place] [id number] [address] [place] [phone] May, Bipolar 2 disorder F31.81 ; Social anxiety disorder F40.10 ; Chronic post-traumatic stress disorder (PTSD) F43.12 ; Attention deficit disorder F90.0 and Encounter for immunization Z23 [facility] [address] [address] Apr, [facility] [address] [place] [id number] [place] [address] Apr, Body aches R52 and Acute chely opharyngitis J00 [place] [address] [address] 24 Mar, 2018 Pure hypercholesterolemia E7 8.00 and Exertional chest pain R07.9 [place] [address] [address] Mar, Hyperlipidemia E78.5 ; Hyper tension I10 and Routine adult health maintenance Z00.00 [place] [address] [address] 20 Mar, 2018 Hypertension I10 ; Hyperlipi demia E78.5 ; Chest pain, exertional R07.9 and Routine adult health maintenance Z00.00 [place] [address] [place] [id number] [address] [place] [id number] 17 Mar, 2018 [place] [address] [address] Mar, Lumbago with sciatica, left side M54.42 and Lumbago with sciatica, right side M54.41 [place] [address] [address] Jan, [place] [address] [place] [id number] [place] [address] Dec, Bipolar 2 disorder F31.81 ; Social anxiety disorder F40.10 and Chronic post-traumatic stress disorder (PTSD) F43.12 [place] [address] [id number] [address] [place] [phone] Dec, [facility] [address] [facility] [id number] [address] [place] [phone] Dec, [facility] [address] [facility] [id number] [address] [place] [address] Dec, Upper respiratory tract infe ction, unspecified type J06.9 [facility] [address] [id number] [address] [place] [phone] October, [facility] [address] [id number] [address] [place] [address] Oct, Bipolar 2 disorder F31.81 ; Attention deficit disorder F90.0 ; Social anxiety disorder F40.10 and Chronic post-traumatic stress disorder (PTSD) F43.12 [place] [address] [facility] [id number] [address] [place] [address] Oct, [facility] [address] [facility] [id number] [address] [place] [address] Oct, [place] [address] [facility] [id number] [address] [place] [phone] Aug, [facility] [address] [facility] [id number] [address] [place] [id number] Aug, [facility] [address] [facility] [id number] [address] [place] [address] Jul, Strain of lumbar region, ini tial encounter S39.012A [facility] [address] [id number] [address] [place] [phone] Jul, Lumbago with sciatica, left side M54.42 and Lumbago with sciatica, right side M54.41 [facility] [address] [facility] [id number] [address] [place] [phone] Jul, Low back pain M54.5 and Othe r chronic pain G89.29 [facility] [address] [place] [id number] [address] [place] [phone] Jul, [facility] [address] [place] [id number] [place] [address] Jul, Bipolar 2 disorder F31.81 ; Attention deficit disorder F90.0 and Social anxiety disorder F40.10 [facility] [address] [place] [id number] [place] [address] Jun, [facility] [address] [place] [id number] [place] [address] May, [facility] [address] [place] [id number] [place] [address] Apr, Bipolar 2 disorder F31.81 ; Attention deficit disorder F90.0 ; Social anxiety disorder F40.10 and Chronic post-traumatic stress disorder (PTSD) F43.12 [place] [address] [address] Apr, [facility] [address] [address] Apr, Hyperlipidemia E78.5 [facility] [address] [place] [id number] [place] [address] Mar, Encounter for immunization Z 23 and Tinea cruris B35.6 [facility] [id number] [place] [address] Mar, [facility] [address] [place] [id number] [place] [phone] Jan, [facility] [address] [place] [id number] [address] [place] [phone] Dec, [facility] [address] [place] [id number] [address] [place] [address] Dec, [facility] [address] [place] [id number] [address] [place] [address] Dec, Bipolar 2 disorder F31.81 ; Social anxiety disorder F40.10 and Attention deficit disorder F90.0 [facility] [address] [id number] [address] [place] [phone] Dec, [facility] [address] [id number] [address] [place] [phone] Dec, Hypertension I10 [facility] [address] [id number] [address] [place] [phone] October, [facility] [address] [id number] [address] [place] [phone] Oct, [facility] [address] [id number] [address] [place] [phone] Oct, Nasal congestion R09.81 [facility] [address] [facility] [id number] [address] [place] [address] Oct, Social anxiety disorder F40. 10 ; Bipolar 2 disorder F31.81 and Attention deficit disorder F90.0 [facility] [address] [id number] [address] [place] [phone] Aug, [facility] [address] [facility] [id number] [address] [place] [phone] Aug, [facility] [address] [facility] [id number] [address] [place] [phone] Jul, Nasal congestion R09.81 [facility] [address] [facility] [id number] [address] [place] [address] Jul, [facility] [address] [facility] [id number] [address] [place] [phone] Jun, Bipolar 2 disorder F31.81 ; Attention deficit disorder F90.0 ; Social anxiety disorder F40.10 and Chronic post-traumatic stress disorder (PTSD) F43.12 [facility] [address] [id number] [address] [place] [phone] Jun, [facility] [address] [facility] [id number] [address] [place] [phone] May, [facility] [address] [facility] [id number] [address] [place] [phone] Apr, Attention deficit disorder F 90.0 [facility] [address] [place] [id number] [address] [place] [phone] Apr, Urinary hesitancy R39.11 ; H yperlipidemia E78.5 and Encounter for immunization Z23 [facility] [address] [facility] [id number] [address] [place] [phone] Apr, [facility] [address] [place] [id number] [address] [place] [phone] Mar, [facility] [address] [place] [id number] [place] [phone] Jan, [facility] [address] [place] [id number] [place] [phone] Dec, [facility] [address] [place] [id number] [address] [place] [phone] Dec, [facility] [address] [place] [id number] [address] [place] [address] Dec, Bipolar 2 disorder F31.81 ; Attention deficit disorder F90.0 ; Posttraumatic stress disorder F43.10 and Social anxiety disorder F40.10 [facility] [address] [facility] [id number] [address] [place] [phone] Dec, Scabies exposure Z20.89 and Scabies B86 [facility] [address] [facility] [id number] [address] [place] [phone] Dec, [facility] [address] [place] [id number] [address] [place] [phone] Dec, Hypertension I10 and Gastroe sophageal reflux disease without esophagitis K21.9 [facility] [address] [place] [id number] [address] [place] [phone] October, [facility] [address] [place] [id number] [address] [place] [phone] October, [facility] [address] [facility] [id number] [address] [place] [phone] Oct, Bipolar 2 disorder F31.81 ; Posttraumatic stress disorder F43.10 ; Attention deficit disorder F90.0 and Social anxiety disorder F40.10 [facility] [address] [place] [id number] [place] [address] Oct, [facility] [address] [place] [id number] [place] [address] Oct, Hypertension I10 and Nasal c ongestion R09.81 [facility] [address] [facility] [id number] [place] [phone] Aug, [facility] [address] [place] [id number] [place] [address] Aug, [facility] [address] [address] Aug, [facility] [address] [place] [id number] [address] [place] [phone] Aug, [facility] [address] [address] Aug, [facility] [address] [address] Aug, Hypertension I10 and Tremor R25.1 [facility] [address] [place] [id number] [address] [place] [address] Aug, Bipolar 2 disorder F31.81 ; Posttraumatic stress disorder F43.10 ; Attention deficit disorder F90.0 and Social anxiety disorder F40.10 [facility] [address] [place] [id number] [address] [place] [phone] Jul, [facility] [address] [address] Jul, Hyperlipidemia E78.5 [facility] [address] [place] [id number] [address] [place] [address] Jul, Hypertension I10 and Hyperli pidemia E78.5 [facility] [address] [place] [id number] [address] [place] [address] Jun, Bipolar 2 disorder F31.81 ; Posttraumatic stress disorder F43.10 ; Attention deficit disorder F90.0 and Social anxiety disorder F40.10 [facility] [address] [address] May, [facility] [address] [place] [id number] [place] [address] May, [facility] [address] [place] [id number] [place] [address] Apr, Bipolar 2 disorder F31.81 ; Posttraumatic stress disorder F43.10 ; Attention deficit disorder F90.0 and Social phobia F40.10 [facility] [address] [address] Apr, Bipolar 2 disorder F31.81 ; Posttraumatic stress disorder F43.10 and Attention deficit disorder F90.0 [facility] [address] [address] Apr, [facility] [address] [place] [id number] [place] [address] Apr, [facility] [address] [place] [id number] [address] [place] [phone] Apr, [facility] [address] [place] [id number] [address] [place] [phone] Mar, [facility] [address] [address] Mar, [facility] [address] [place] [id number] [address] [place] [phone] Jan, [facility] [address] [place] [id number] [address] [place] [phone] Jan, [facility] [address] [facility] [id number] [address] [place] [address] Jan, Bipolar II disorder 296.89 ; Posttraumatic stress disorder 309.81 ; Social phobia 300.23 and Attention deficit disorder of childhood without mention of hyperactivity 314.00 [facility] [address] [facility] [id number] [address] [place] [address] Jan, Other and unspecified bipola r disorders 296.89 ; Posttraumatic stress disorder 309.81 and Attention deficit disorder of childhood without mention of hyperactivity 314.00 [facility] [address] [facility] [id number] [address] [place] [address] Jan, [facility] [address] [facility] [id number] [address] [place] [address] Dec, Other and unspecified bipola r disorders 296.89 ; Posttraumatic stress disorder 309.81 and Attention deficit disorder of childhood without mention of hyperactivity 314.00 [facility] [address] [facility] [id number] [address] [place] [address] Dec, Migraines 346.90 [facility] [address] [facility] [id number] [address] [place] [address] Dec, Other and unspecified bipola r disorders 296.89 ; Posttraumatic stress disorder 309.81 and Attention deficit disorder of childhood without mention of hyperactivity 314.00 [facility] [address] [facility] [id number] [address] [place] [address] Dec, [facility] [address] [facility] [id number] [address] [place] [phone] Dec, Bipolar II disorder 296.89 ; Social phobia 300.23 ; Posttraumatic stress disorder 309.81 and Attention deficit disorder of childhood without mention of hyperactivity 314.00 [facility] [address] [facility] [id number] [address] [place] [address] Dec, Other and unspecified bipola r disorders 296.89 ; Posttraumatic stress disorder 309.81 and Attention deficit disorder of childhood without mention of hyperactivity 314.00 [facility] [address] [facility] [id number] [address] [place] [address] October, Other and unspecified bipola r disorders 296.89 ; Posttraumatic stress disorder 309.81 and Attention deficit disorder of childhood without mention of hyperactivity 314.00 [facility] [address] [id number] [address] [place] [phone] October, [facility] [address] [id number] [address] [place] [phone] October, [facility] [address] [id number] [address] [place] [phone] October, [facility] [address] [id number] [address] [place] [phone] October, [facility] [address] [id number] [address] [place] [address] October, Attention deficit disorder o f childhood without mention of hyperactivity 314.00 ; Posttraumatic stress disorder 309.81 ; Social phobia 300.23 and Other and unspecified bipolar disorders 296.89 [facility] [address] [id number] [address] [place] [phone] Oct, [facility] [address] [id number] [address] [place] [phone] Oct, [facility] [address] [facility] [id number] [address] [place] [phone] Aug, [facility] [address] [id number] [address] [place] [phone] Aug, [facility] [address] [id number] [address] [place] [phone] Aug, [facility] [address] [id number] [address] [place] [phone] Aug, [facility] [address] [facility] [id number] [address] [place] [id number] Aug, [facility] [address] [id number] [address] [place] [id number] Aug, [facility] [address] [id number] [facility] [place] [address] 17 Aug, 2014 [facility] [address] [id number] [facility] [place] [address] 17 Aug, 2014 [facility] [address] [id number] [facility] [place] [address] 17 Aug, 2014 [facility] [address] [id number] [address] [place] [address], [place] [address] 17 Aug, 2014 [facility] [address] [id number] [address] [place] [address], [place] [address] 13 Aug, 2014 [facility] [address] [id number] [address] [place] [address], [place] [address] 13 Aug, 2014 [facility] [address] [id number] [address] [place] [address], [place] [address] 12 Aug, 2014 [facility] [address] [id number] [address] [place] [address], [place] [address] 12 Aug, 2014 [facility] [address] [id number] [address] [place] [address], [place] [address] Aug, [facility] [address] [id number] [address] [place] [address], [place] [address] Aug, [facility] [address] [id number] [address] [place] [address], [place] [address] Aug, [facility] [address] [id number] [address] [place] [address], [place] [address] Aug, [facility] [address] [id number] [address] [place] [address], [place] [address] Aug, [facility] [address] [id number] [address] [place] [address], [place] [address] Aug, [facility] [address] [id number] [address] [place] [address], [place] [address] 04 Aug, 2014 [facility] [address] [id number] [address] [place] [address], [place] [address] Aug, [facility] [address] [id number] [address] [place] [address], [place] [address] Aug, [facility] [address] [id number] [address] [place] [address], [place] [address] Aug, [facility] [address] [id number] [address] [place] [address], [place] [address] Aug, [facility] [address] [id number] [address] [place] [address], [place] [address] Aug, [facility] [address] [id number] [address] [place] [address], [place] [address] Aug, [facility] [address] [id number] [address] [place] [address], [place] [address] Aug, [facility] [address] [id number] [address] [place] [address], [place] [address] Aug, [facility] [address] [id number] [address] [place] [address], [place] [address] Aug, [facility] [address] [id number] [address] [place] [address], [place] [address] Jul, [facility] [address] [id number] [address] [place] [address], [place] [address] Jul, [facility] [address] [id number] [address] [place] [address], [place] [address] Jul, [facility] [address] [id number] [address] [place] [address], [place] [address] Jul, [facility] [address] [id number] [address] [place] [address], [place] [address] Jul, [facility] [address] [id number] [address] [place] [address], [place] [address] Jul, [facility] [address] [id number] [address] [place] [address], [place] [address] Jul, [facility] [address] [id number] [address] [place] [address] Jul, [facility] [address] [id number] [address] [place] [id number] Jun, [facility] [address] [id number] [address] [place] [id number] Jun, [facility] [address] [id number] [address] [place] [id number] Jun, [facility] [address] [id number] [address] [place] [id number] Jun, [facility] [address] [id number] [address] [place] [id number] May, [facility] [address] [id number] [place] [id number] May, [facility] [address] [id number] [address] [place] [id number] May, [facility] [address] [id number] [address] [place] [id number] May, [facility] [address] [id number] [address] [place] [id number] May, [facility] [address] [id number] [address] [place] [phone] Apr, [facility] [address] [id number] [address] [place] [id number] Apr, IMMUNIZATIONS No Known Immunizations SOCIAL HISTORY [...]
--- OUTSIDE RECORDS SUMMARY | 2019-11-11 19:08 | XMS REPORT ---
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 12 Active 786033451 Problem Other chronic pain G89.29 Active 8 1330926 Problem Lumbago with sciatica, left side M54.42 Active 995218311 Problem Lumbago with sciatica, right side M54.41 Active [id number] ALLERGIES No Information ENCOUNTERS Encounter Location Date Diagnosis [facility] [address] [facility] [id number] [address] [place] [phone] Jan, [facility] [address] [facility] [id number] [address] [place] [phone] Dec, [facility] [address] [facility] [id number] [address] [place] [phone] Dec, Bipolar 2 disorder F31.81 [facility] [address] [facility] [id number] [address] [place] [phone] Dec, [facility] [address] [facility] [id number] [address] [place] [address] Dec, Bipolar 2 disorder F31.81 [facility] [address] [place] [id number] [address] [place] [phone] Oct, Bipolar 2 disorder F31.81 [facility] [address] [place] [id number] [place] [address] Oct, Bipolar 2 disorder F31.81 ; Attention deficit disorder F90.0 ; Social anxiety disorder F40.10 and Chronic post-traumatic stress disorder (PTSD) F43.12 [facility] [address] [place] [id number] [address] [place] [phone] Aug, Lumbago with sciatica, left side M54.42 and Lumbago with sciatica, right side M54.41 [facility] [address] [place] [id number] [place] [address] Aug, Bipolar 2 disorder F31.81 [facility] [id number] [place] [address] Aug, Bipolar 2 disorder F31.81 [facility] [id number] [place] [address] Aug, Bipolar 2 disorder F31.81 ; Attention deficit disorder F90.0 ; Social anxiety disorder F40.10 and PTSD (post-traumatic stress disorder) F43.10 [facility] [address] [place] [place] [id number] [address] [place] [id number] Jul, [facility] [address] [place] [id number] [address] [place] [address] Jun, Nasal congestion R09.81 ; Ac [place] nonintractable headache, unspecified headache type R51 and Viral upper respiratory tract infection J06.9 [facility] [address] [place] [place] [id number] [address] [place] [phone] Jun, [facility] [address] [place] [id number] [place] [address] May, [facility] [address] [place] [id number] [address] [place] [address] May, [place] [address] [place] [id number] [place] [address] May, Bipolar 2 disorder F31.81 ; Social anxiety disorder F40.10 ; Chronic post-traumatic stress disorder (PTSD) F43.12 ; Attention deficit disorder F90.0 and Encounter for immunization Z23 [facility] [address] [address] Apr, [facility] [address] [id number] [place] [address] Apr, Body aches R52 and Acute chely opharyngitis J00 [place] [address] [address] 24 Mar, 2018 Pure hypercholesterolemia E7 8.00 and Exertional chest pain R07.9 [place] [address] [address] Mar, Hyperlipidemia E78.5 ; Hyper tension I10 and Routine adult health maintenance Z00.00 [place] [address] [address] 20 Mar, 2018 Hypertension I10 ; Hyperlipi demia E78.5 ; Chest pain, exertional R07.9 and Routine adult health maintenance Z00.00 [place] [address] [place] [id number] [place] [address] 17 Mar, 2018 [place] [address] [address] Mar, Lumbago with sciatica, left side M54.42 and Lumbago with sciatica, right side M54.41 [place] [address] [address] Jan, [place] [address] [place] [id number] [place] [address] Dec, Bipolar 2 disorder F31.81 ; Social anxiety disorder F40.10 and Chronic post-traumatic stress disorder (PTSD) F43.12 [place] [address] [id number] [address] [place] [phone] Dec, [facility] [address] [facility] [id number] [address] [place] [phone] Dec, [facility] [address] [facility] [id number] [address] [place] [phone] Dec, Upper respiratory tract infe ction, unspecified type J06.9 [facility] [address] [id number] [address] [place] [address] October, [facility] [address] [id number] [address] [place] [address] Oct, Bipolar 2 disorder F31.81 ; Attention deficit disorder F90.0 ; Social anxiety disorder F40.10 and Chronic post-traumatic stress disorder (PTSD) F43.12 [place] [address] [facility] [id number] [address] [place] [phone] Oct, [facility] [address] [facility] [id number] [address] [place] [phone] Oct, [place] [address] [facility] [id number] [address] [place] [phone] Aug, [facility] [address] [facility] [id number] [address] [place] [address] Aug, [facility] [address] [facility] [id number] [address] [place] [address] Jul, Strain of lumbar region, ini tial encounter S39.012A [facility] [address] [id number] [address] [place] [phone] Jul, Lumbago with sciatica, left side M54.42 and Lumbago with sciatica, right side M54.41 [facility] [address] [facility] [id number] [address] [place] [phone] Jul, Low back pain M54.5 and Othe r chronic pain G89.29 [facility] [address] [place] [id number] [address] [place] [address] Jul, [facility] [address] [id number] [place] [address] Jul, Bipolar 2 disorder F31.81 ; Attention deficit disorder F90.0 and Social anxiety disorder F40.10 [facility] [address] [place] [id number] [place] [address] Jun, [facility] [address] [id number] [place] [address] May, [facility] [address] [place] [id number] [place] [address] Apr, Bipolar 2 disorder F31.81 ; Attention deficit disorder F90.0 ; Social anxiety disorder F40.10 and Chronic post-traumatic stress disorder (PTSD) F43.12 [place] [address] [address] Apr, [facility] [address] [address] Apr, Hyperlipidemia E78.5 [facility] [address] [id number] [place] [address] Mar, Encounter for immunization Z 23 and Tinea cruris B35.6 [facility] [id number] [place] [address] Mar, [facility] [address] [place] [id number] [place] [address] Jan, [facility] [address] [place] [id number] [address] [place] [phone] Dec, [facility] [address] [place] [id number] [address] [place] [phone] Dec, [facility] [address] [place] [id number] [place] [address] Dec, Bipolar 2 disorder F31.81 ; Social anxiety disorder F40.10 and Attention deficit disorder F90.0 [facility] [address] [id number] [address] [place] [phone] Dec, [facility] [address] [id number] [address] [place] [address] Dec, Hypertension I10 [facility] [address] [id number] [address] [place] [address] October, [facility] [address] [id number] [address] [place] [phone] Oct, [facility] [address] [id number] [address] [place] [phone] Oct, Nasal congestion R09.81 [facility] [address] [facility] [id number] [address] [place] [phone] Oct, Social anxiety disorder F40. 10 ; Bipolar 2 disorder F31.81 and Attention deficit disorder F90.0 [facility] [address] [id number] [address] [place] [phone] Aug, [facility] [address] [facility] [id number] [address] [place] [phone] Aug, [facility] [address] [facility] [id number] [address] [place] [address] Jul, Nasal congestion R09.81 [facility] [address] [facility] [id number] [address] [place] [phone] Jul, [facility] [address] [facility] [id number] [address] [place] [phone] Jun, Bipolar 2 disorder F31.81 ; Attention deficit disorder F90.0 ; Social anxiety disorder F40.10 and Chronic post-traumatic stress disorder (PTSD) F43.12 [facility] [address] [id number] [address] [place] [phone] Jun, [facility] [address] [facility] [id number] [address] [place] [address] May, [facility] [address] [facility] [id number] [address] [place] [phone] Apr, Attention deficit disorder F 90.0 [facility] [address] [place] [id number] [address] [place] [address] Apr, Urinary hesitancy R39.11 ; H yperlipidemia E78.5 and Encounter for immunization Z23 [facility] [address] [facility] [id number] [address] [place] [phone] Apr, [facility] [address] [place] [id number] [place] [phone] Mar, [facility] [address] [place] [id number] [place] [address] Jan, [facility] [address] [place] [id number] [place] [phone] Dec, [facility] [address] [place] [id number] [place] [address] Dec, [facility] [address] [place] [id number] [place] [address] Dec, Bipolar 2 disorder F31.81 ; Attention deficit disorder F90.0 ; Posttraumatic stress disorder F43.10 and Social anxiety disorder F40.10 [facility] [address] [facility] [id number] [address] [place] [phone] Dec, Scabies exposure Z20.89 and Scabies B86 [facility] [address] [facility] [id number] [address] [place] [phone] Dec, [facility] [address] [place] [id number] [address] [place] [address] Dec, Hypertension I10 and Gastroe sophageal reflux disease without esophagitis K21.9 [facility] [address] [place] [id number] [place] [address] October, [facility] [address] [place] [id number] [address] [place] [phone] October, [facility] [address] [facility] [id number] [address] [place] [address] Oct, Bipolar 2 disorder F31.81 ; Posttraumatic stress disorder F43.10 ; Attention deficit disorder F90.0 and Social anxiety disorder F40.10 [facility] [address] [place] [id number] [place] [address] Oct, [facility] [address] [place] [id number] [place] [address] Oct, Hypertension I10 and Nasal c ongestion R09.81 [facility] [address] [facility] [id number] [place] [address] Aug, [facility] [address] [place] [id number] [place] [phone] Aug, [facility] [address] [address] Aug, [facility] [address] [place] [id number] [place] [address] Aug, [facility] [address] [address] Aug, [facility] [address] [address] Aug, Hypertension I10 and Tremor R25.1 [facility] [address] [place] [id number] [place] [address] Aug, Bipolar 2 disorder F31.81 ; Posttraumatic stress disorder F43.10 ; Attention deficit disorder F90.0 and Social anxiety disorder F40.10 [facility] [address] [place] [id number] [place] [address] Jul, [facility] [address] [address] Jul, Hyperlipidemia E78.5 [facility] [address] [place] [id number] [place] [address] Jul, Hypertension I10 and Hyperli pidemia E78.5 [facility] [address] [place] [id number] [place] [address] Jun, Bipolar 2 disorder F31.81 ; Posttraumatic stress disorder F43.10 ; Attention deficit disorder F90.0 and Social anxiety disorder F40.10 [facility] [address] [address] May, [facility] [address] [place] [id number] [place] [address] May, [facility] [address] [place] [id number] [place] [address] Apr, Bipolar 2 disorder F31.81 ; Posttraumatic stress disorder F43.10 ; Attention deficit disorder F90.0 and Social phobia F40.10 [facility] [address] [address] Apr, Bipolar 2 disorder F31.81 ; Posttraumatic stress disorder F43.10 and Attention deficit disorder F90.0 [facility] [address] [address] Apr, [facility] [address] [place] [id number] [place] [address] Apr, [facility] [address] [place] [id number] [address] [place] [address] Apr, [facility] [address] [place] [id number] [place] [phone] Mar, [facility] [address] [address] Mar, [facility] [address] [place] [id number] [place] [address] Jan, [facility] [address] [place] [id number] [place] [address] Jan, [facility] [address] [facility] [id number] [address] [place] [address] Jan, Bipolar II disorder 296.89 ; Posttraumatic stress disorder 309.81 ; Social phobia 300.23 and Attention deficit disorder of childhood without mention of hyperactivity 314.00 [facility] [address] [facility] [id number] [address] [place] [address] Jan, Other and unspecified bipola r disorders 296.89 ; Posttraumatic stress disorder 309.81 and Attention deficit disorder of childhood without mention of hyperactivity 314.00 [facility] [address] [facility] [id number] [address] [place] [address] Jan, [facility] [address] [facility] [id number] [address] [place] [phone] Dec, Other and unspecified bipola r disorders 296.89 ; Posttraumatic stress disorder 309.81 and Attention deficit disorder of childhood without mention of hyperactivity 314.00 [facility] [address] [facility] [id number] [address] [place] [address] Dec, Migraines 346.90 [facility] [address] [facility] [id number] [address] [place] [address] Dec, Other and unspecified bipola r disorders 296.89 ; Posttraumatic stress disorder 309.81 and Attention deficit disorder of childhood without mention of hyperactivity 314.00 [facility] [address] [facility] [id number] [address] [place] [phone] Dec, [facility] [address] [facility] [id number] [address] [place] [address] Dec, Bipolar II disorder 296.89 ; Social phobia 300.23 ; Posttraumatic stress disorder 309.81 and Attention deficit disorder of childhood without mention of hyperactivity 314.00 [facility] [address] [facility] [id number] [address] [place] [address] Dec, Other and unspecified bipola r disorders 296.89 ; Posttraumatic stress disorder 309.81 and Attention deficit disorder of childhood without mention of hyperactivity 314.00 [facility] [address] [facility] [id number] [address] [place] [address] October, Other and unspecified bipola r disorders 296.89 ; Posttraumatic stress disorder 309.81 and Attention deficit disorder of childhood without mention of hyperactivity 314.00 [facility] [address] [id number] [address] [place] [phone] October, [facility] [address] [id number] [address] [place] [address] October, [facility] [address] [id number] [address] [place] [address] October, [facility] [address] [id number] [address] [place] [address] October, [facility] [address] [id number] [address] [place] [address] October, Attention deficit disorder o f childhood without mention of hyperactivity 314.00 ; Posttraumatic stress disorder 309.81 ; Social phobia 300.23 and Other and unspecified bipolar disorders 296.89 [facility] [address] [id number] [address] [place] [address] Oct, [facility] [address] [id number] [address] [place] [phone] Oct, [facility] [address] [facility] [id number] [address] [place] [phone] Aug, [facility] [address] [id number] [address] [place] [phone] Aug, [facility] [address] [id number] [address] [place] [phone] Aug, [facility] [address] [id number] [address] [place] [phone] Aug, [facility] [address] [facility] [id number] [address] [place] [phone] Aug, [facility] [address] [id number] [address] [place] [phone] Aug, [facility] [address] [id number] [facility] [place] [address] 17 Aug, 2014 [facility] [address] [id number] [facility] [place] [address] 17 Aug, 2014 [facility] [address] [id number] [facility] [place] [address] 17 Aug, 2014 [facility] [address] [id number] [address] [place] [address], [place] [address] 17 Aug, 2014 [facility] [address] [id number] [address] [place] [address], [place] [address] 13 Aug, 2014 [facility] [address] [id number] [address] [place] [address], [place] [address] 13 Aug, 2014 [facility] [address] [id number] [address] [place] [address], [place] [address] 12 Aug, 2014 [facility] [address] [id number] [address] [place] [address], [place] [address] 12 Aug, 2014 [facility] [address] [id number] [address] [place] [address], [place] [address] Aug, [facility] [address] [id number] [address] [place] [address], [place] [address] Aug, [facility] [address] [id number] [address] [place] [address], [place] [address] Aug, [facility] [address] [id number] [address] [place] [address], [place] [address] Aug, [facility] [address] [id number] [address] [place] [address], [place] [address] Aug, [facility] [address] [id number] [address] [place] [address], [place] [address] Aug, [facility] [address] [id number] [address] [place] [address], [place] [address] 04 Aug, 2014 [facility] [address] [id number] [address] [place] [address], [place] [address] Aug, [facility] [address] [id number] [address] [place] [address], [place] [address] Aug, [facility] [address] [id number] [address] [place] [address], [place] [address] Aug, [facility] [address] [id number] [address] [place] [address], [place] [address] Aug, [facility] [address] [id number] [address] [place] [address], [place] [address] Aug, [facility] [address] [id number] [address] [place] [address], [place] [address] Aug, [facility] [address] [id number] [address] [place] [address], [place] [address] Aug, [facility] [address] [id number] [address] [place] [address], [place] [address] Aug, [facility] [address] [id number] [address] [place] [address], [place] [address] Aug, [facility] [address] [id number] [address] [place] [address], [place] [address] Jul, [facility] [address] [id number] [address] [place] [address], [place] [address] Jul, [facility] [address] [id number] [address] [place] [address], [place] [address] Jul, [facility] [address] [id number] [address] [place] [address], [place] [address] Jul, [facility] [address] [id number] [address] [place] [address], [place] [address] Jul, [facility] [address] [id number] [address] [place] [address], [place] [address] Jul, [facility] [address] [id number] [address] [place] [address], [place] [address] Jul, [facility] [address] [id number] [address] [place], [place] [id number] Jul, [facility] [address] [id number] [address] [place] [phone] Jun, [facility] [address] [id number] [address] [place] [id number] Jun, [facility] [address] [id number] [address] [place] [id number] Jun, [facility] [address] [id number] [address] [place] [phone] Jun, [facility] [address] [id number] [address] [place] [phone] May, [facility] [address] [id number] [address] [place] [id number] May, [facility] [address] [id number] [address] [place] [phone] May, [facility] [address] [id number] [address] [place] [id number] May, [facility] [address] [id number] [address] [place] [id number] May, [facility] [address] [id number] [address] [place] [id number] Apr, [facility] [address] [id number] [address] [place] [id number] Apr, IMMUNIZATIONS No Known Immunizations SOCIAL HISTORY [...]
--- OUTSIDE RECORDS SUMMARY | 2019-11-11 19:08 | XMS REPORT ---
Author Author [place] [facility] Address [address] [place] [address] Care Team Providers Care Cable Hooker Name Role Phone DONNA SKYLAR Unavailable PROBLEMS Type Condition ICD9-CM Code IKC10-FS Code Onset Dates Condition S tatus SNOMED Code Problem Social anxiety disorder F40.10 Active 39536578 Problem Hyperlipidemia E78.5 Active 08769 004 Problem Hypertension I10 Active 8529976 3 Problem Pure hypercholesterolemia E78.00 Acti ve 057643309 Problem Attention deficit disorder F90.0 Act shalmo 760848984 Problem PTSD (post-traumatic stress disorder) F43.10 Active 32044834 Problem Bipolar 2 disorder F31.81 Active 8 7255917 Problem Chronic post-traumatic stress disorder (PTSD) F43. 12 Active 926609299 Problem Other chronic pain G89.29 Active 8 2119997 Problem Lumbago with sciatica, left side M54.42 Active 355129395 Problem Lumbago with sciatica, right side M54.41 Active [id number] ALLERGIES No Information ENCOUNTERS Encounter Location Date Diagnosis [facility] [address] [facility] [id number] [address] [place] [id number] Jan, [facility] [address] [facility] [id number] [address] [place] [address] Dec, [facility] [address] [facility] [id number] [address] [place] [address] Dec, Bipolar [address] [facility] [address] [facility] [id number] [address] [place] [address] Dec, [facility] [address] [facility] [id number] [address] [place] [address] Dec, Bipolar [address] [facility] [address] [place] [id number] [address] [place] [address] Oct, Bipolar [address] [facility] [address] [place] [id number] [place] [address] Oct, Bipolar 2 disorder F31.81 ; Attention deficit disorder F90.0 ; Social anxiety disorder F40.10 and Chronic post-traumatic stress disorder (PTSD) F43.12 [facility] [address] [place] [id number] [place] [phone] Aug, Lumbago with sciatica, left side M54.42 and Lumbago with sciatica, right side M54.41 [facility] [address] [place] [id number] [place] [phone] Aug, Bipolar [address] [facility] [address] [address] Aug, Bipolar [address] [facility] [address] [address] Aug, Bipolar 2 disorder F31.81 ; Attention deficit disorder F90.0 ; Social anxiety disorder F40.10 and PTSD (post-traumatic stress disorder) F43.10 [facility] [address] [address] Jul, [facility] [address] [address] Jun, Nasal congestion R09.81 ; Ac ping nonintractable headache, unspecified headache type R51 and Viral upper respiratory tract infection J06.9 [place] [address] [address] Jun, [facility] [address] [place] [id number] [place] [phone] May, [facility] [address] [address] May, [facility] [address] [address] May, Bipolar 2 disorder F31.81 ; Social anxiety disorder F40.10 ; Chronic post-traumatic stress disorder (PTSD) F43.12 ; Attention deficit disorder F90.0 and Encounter for immunization Z23 [facility] [address] [address] Apr, [facility] [address] [place] [id number] [place] [address] Apr, Body aches R52 and Acute chely opharyngitis J00 [place] [address] [address] 24 Mar, 2018 Pure hypercholesterolemia E7 8.00 and Exertional chest pain R07.9 [place] [address] [address] Mar, Hyperlipidemia E78.5 ; Hyper tension I10 and Routine adult health maintenance Z00.00 [place] [address] [address] 20 Mar, 2018 Hypertension I10 ; Hyperlipi demia E78.5 ; Chest pain, exertional R07.9 and Routine adult health maintenance Z00.00 [place] [address] [address] 17 Mar, 2018 [place] [address] [address] Mar, Lumbago with sciatica, left side M54.42 and Lumbago with sciatica, right side M54.41 [place] [address] [address] Jan, [place] [address] [address] Dec, Bipolar 2 disorder F31.81 ; Social anxiety disorder F40.10 and Chronic post-traumatic stress disorder (PTSD) F43.12 [place] [address] [facility] [id number] [address] [place] [address] Dec, [facility] [address] [facility] [id number] [address] [place] [address] Dec, [facility] [address] [facility] [id number] [address] [place] [address] Dec, Upper respiratory tract infe ction, unspecified type J06.9 [facility] [address] [id number] [address] [place] [address] October, [facility] [address] [id number] [address] [place] [address] Oct, Bipolar 2 disorder F31.81 ; Attention deficit disorder F90.0 ; Social anxiety disorder F40.10 and Chronic post-traumatic stress disorder (PTSD) F43.12 [place] [address] [facility] [id number] [address] [place] [address] Oct, [facility] [address] [facility] [id number] [address] [place] [address] Oct, [facility] [address] [facility] [id number] [address] [place] [address] Aug, [facility] [address] [facility] [id number] [address] [place] [address] Aug, [facility] [address] [facility] [id number] [address] [place] [address] Jul, Strain of lumbar region, ini tial encounter S39.012A [facility] [address] [id number] [address] [place] [address] Jul, Lumbago with sciatica, left side M54.42 and Lumbago with sciatica, right side M54.41 [facility] [address] [facility] [id number] [address] [place] [phone] Jul, Low back pain M54.5 and Othe r chronic pain G89.29 [facility] [address] [place] [id number] [address] [place] [address] Jul, [facility] [address] [place] [id number] [place] [address] Jul, Bipolar 2 disorder F31.81 ; Attention deficit disorder F90.0 and Social anxiety disorder F40.10 [facility] [address] [address] Jun, [facility] [address] [address] May, [facility] [address] [address] Apr, Bipolar 2 disorder F31.81 ; Attention deficit disorder F90.0 ; Social anxiety disorder F40.10 and Chronic post-traumatic stress disorder (PTSD) F43.12 [place] [address] [address] Apr, [facility] [address] [address] Apr, Hyperlipidemia E78.5 [facility] [address] [place] [id number] [place] [address] Mar, Encounter for immunization Z 23 and Tinea cruris B35.6 [facility] [address] [address] Mar, [facility] [address] [place] [id number] [place] [address] Jan, [facility] [address] [place] [id number] [address] [place] [phone] Dec, [facility] [address] [place] [id number] [place] [address] Dec, [facility] [address] [place] [id number] [address] [place] [address] Dec, Bipolar 2 disorder F31.81 ; Social anxiety disorder F40.10 and Attention deficit disorder F90.0 [facility] [address] [id number] [address] [place] [phone] Dec, [facility] [address] [id number] [address] [place] [phone] Dec, Hypertension I10 [facility] [address] [id number] [address] [place] [phone] October, [facility] [address] [id number] [address] [place] [id number] Oct, [facility] [address] [id number] [address] [place] [id number] Oct, Nasal congestion R09.81 [facility] [address] [facility] [id number] [address] [place] [address] Oct, Social anxiety disorder F40. 10 ; Bipolar 2 disorder F31.81 and Attention deficit disorder F90.0 [facility] [address] [id number] [address] [place] [phone] Aug, [facility] [address] [id number] [address] [place] [id number] Aug, [facility] [address] [facility] [id number] [address] [place] [address] Jul, Nasal congestion R09.81 [facility] [address] [facility] [id number] [address] [place] [id number] Jul, [facility] [address] [facility] [id number] [address] [place] [phone] Jun, Bipolar 2 disorder F31.81 ; Attention deficit disorder F90.0 ; Social anxiety disorder F40.10 and Chronic post-traumatic stress disorder (PTSD) F43.12 [facility] [address] [id number] [address] [place] [address] Jun, [facility] [address] [facility] [id number] [address] [place] [address] May, [facility] [address] [place] [id number] [address] [place] [address] Apr, Attention deficit disorder F 90.0 [facility] [address] [place] [id number] [place] [address] Apr, Urinary hesitancy R39.11 ; H yperlipidemia E78.5 and Encounter for immunization Z23 [facility] [id number] [place] [phone] Apr, [facility] [address] [place] [id number] [address] [place] [address] Mar, [facility] [address] [address] Jan, [facility] [address] [place] [id number] [place] [address] Dec, [facility] [address] [address] Dec, [facility] [address] [address] Dec, Bipolar 2 disorder F31.81 ; Attention deficit disorder F90.0 ; Posttraumatic stress disorder F43.10 and Social anxiety disorder F40.10 [facility] [address] [place] [id number] [address] [place] [address] Dec, Scabies exposure Z20.[address] [facility] [address] [place] [id number] [address] [place] [address] Dec, [facility] [address] [address] Dec, Hypertension I10 and Gastroe sophageal reflux disease without esophagitis K21.9 [facility] [address] [place] [id number] [address] [place] [phone] October, [facility] [address] [place] [id number] [address] [place] [address] October, [facility] [address] [facility] [id number] [address] [place] [phone] Oct, Bipolar 2 disorder F31.81 ; Posttraumatic stress disorder F43.10 ; Attention deficit disorder F90.0 and Social anxiety disorder F40.10 [facility] [address] [facility] [id number] [address] [place] [address] Oct, [facility] [address] [facility] [id number] [address] [place] [phone] Oct, Hypertension I10 and Nasal c ongestion R09.81 [facility] [address] [facility] [id number] [address] [place] [phone] Aug, [facility] [address] [facility] [id number] [address] [place] [phone] Aug, [facility] [address] [facility] [id number] [address] [place] [address] Aug, [facility] [address] [facility] [id number] [address] [place] [address] Aug, [facility] [address] [place] [id number] [address] [place] [phone] Aug, [facility] [address] [place] [id number] [place] [address] Aug, Hypertension I10 and T[address]25.1 [facility] [address] [facility] [id number] [address] [place] [address] Aug, Bipolar 2 disorder F31.81 ; Posttraumatic stress disorder F43.10 ; Attention deficit disorder F90.0 and Social anxiety disorder F40.10 [facility] [address] [facility] [id number] [address] [place] [phone] Jul, [facility] [address] [place] [id number] [address] [place] [address] Jul, Hyperlipidemia E78.5 [facility] [address] [place] [id number] [address] [place] [address] Jul, Hypertension I10 and Hyperli pidemia E78.5 [facility] [address] [place] [id number] [address] [place] [address] Jun, Bipolar 2 disorder F31.81 ; Posttraumatic stress disorder F43.10 ; Attention deficit disorder F90.0 and Social anxiety disorder F40.10 [facility] [address] [address] May, [facility] [address] [place] [id number] [place] [address] May, [facility] [address] [address] Apr, Bipolar 2 disorder F31.81 ; Posttraumatic stress disorder F43.10 ; Attention deficit disorder F90.0 and Social phobia F40.10 [facility] [address] [address] Apr, Bipolar 2 disorder F31.81 ; Posttraumatic stress disorder F43.10 and Attention deficit disorder F90.0 [facility] [address] [address] Apr, [facility] [address] [place] [id number] [place] [phone] Apr, [facility] [address] [place] [id number] [address] [place] [address] Apr, [facility] [address] [place] [id number] [address] [place] [address] Mar, [facility] [address] [address] Mar, [facility] [address] [place] [id number] [address] [place] [address] Jan, [facility] [address] [place] [id number] [address] [place] [address] Jan, [facility] [address] [facility] [id number] [address] [place] [address] Jan, Bipolar II disorder 296.89 ; Posttraumatic stress disorder 309.81 ; Social phobia 300.23 and Attention deficit disorder of childhood without mention of hyperactivity 314.00 [facility] [address] [facility] [id number] [address] [place] [address] Jan, Other and unspecified bipola r disorders 296.89 ; Posttraumatic stress disorder 309.81 and Attention deficit disorder of childhood without mention of hyperactivity 314.00 [facility] [address] [facility] [id number] [address] [place] [phone] Jan, [facility] [address] [facility] [id number] [address] [place] [address] Dec, Other and unspecified bipola r disorders 296.89 ; Posttraumatic stress disorder 309.81 and Attention deficit disorder of childhood without mention of hyperactivity 314.00 [facility] [address] [facility] [id number] [address] [place] [address] Dec, Migraines 346.90 [facility] [address] [facility] [id number] [address] [place] [address] Dec, Other and unspecified bipola r disorders 296.89 ; Posttraumatic stress disorder 309.81 and Attention deficit disorder of childhood without mention of hyperactivity 314.00 [facility] [address] [facility] [id number] [address] [place] [phone] Dec, [facility] [address] [facility] [id number] [address] [place] [address] Dec, Bipolar II disorder 296.89 ; Social phobia 300.23 ; Posttraumatic stress disorder 309.81 and Attention deficit disorder of childhood without mention of hyperactivity 314.00 [facility] [address] [facility] [id number] [address] [place] [address] Dec, Other and unspecified bipola r disorders 296.89 ; Posttraumatic stress disorder 309.81 and Attention deficit disorder of childhood without mention of hyperactivity 314.00 [facility] [address] [id number] [address] [place] [address] October, Other and unspecified bipola r disorders 296.89 ; Posttraumatic stress disorder 309.81 and Attention deficit disorder of childhood without mention of hyperactivity 314.00 [facility] [address] [id number] [address] [place] [address] October, [facility] [address] [id number] [address] [place] [address] October, [facility] [address] [id number] [address] [place] [address] October, [facility] [address] [id number] [address] [place] [address] October, [facility] [address] [id number] [address] [place] [address] October, Attention deficit disorder o f childhood without mention of hyperactivity 314.00 ; Posttraumatic stress disorder 309.81 ; Social phobia 300.23 and Other and unspecified bipolar disorders 296.89 [facility] [address] [id number] [address] [place] [id number] Oct, [facility] [address] [id number] [address] [place] [address] Oct, [facility] [address] [facility] [id number] [address] [place] [phone] Aug, [facility] [address] [id number] [address] [place] [phone] Aug, [facility] [address] [id number] [address] [place] [phone] Aug, [facility] [address] [id number] [address] [place] [phone] Aug, [facility] [address] [facility] [id number] [address] [place] [phone] Aug, [facility] [address] [id number] [address] [place] [phone] Aug, [facility] [address] [id number] [facility] [place] [address] 17 Aug, 2014 [facility] [address] [id number] [facility] [place] [address] 17 Aug, 2014 [facility] [address] [id number] [facility] [place] [address] 17 Aug, 2014 [facility] [address] [id number] [address] [place] [address], [place] [address] 17 Aug, 2014 [facility] [address] [id number] [address] [place] [address], [place] [id number] 13 Aug, 2014 [facility] [address] [id number] [address] [place] [address], [place] [id number] 13 Aug, 2014 [facility] [address] [id number] [address] [place] [address], [place] [address] 12 Aug, 2014 [facility] [address] [id number] [address] [place] [address], [place] [id number] Aug, [facility] [address] [id number] [address] [place] [address], [place] [id number] Aug, [facility] [address] [id number] [address] [place] [address], [place] [address] Aug, [facility] [address] [id number] [address] [place] [address], [place] [address] Aug, [facility] [address] [id number] [address] [place] [address], [place] [address] Aug, [facility] [address] [id number] [address] [place] [address], [place] [id number] Aug, [facility] [address] [id number] [address] [place] [address], [place] [address] Aug, [facility] [address] [id number] [address] [place] [address], [place] [id number] 04 Aug, 2014 [facility] [address] [id number] [address] [place] [address], [place] [id number] Aug, [facility] [address] [id number] [address] [place] [address], [place] [id number] Aug, [facility] [address] [id number] [address] [place] [address], [place] [address] Aug, [facility] [address] [id number] [address] [place] [address], [place] [address] Aug, [facility] [address] [id number] [address] [place] [address], [place] [address] Aug, [facility] [address] [id number] [address] [place] [address], [place] [address] Aug, [facility] [address] [id number] [address] [place] [address], [place] [id number] Aug, [facility] [address] [id number] [address] [place] [address], [place] [id number] Aug, [facility] [address] [id number] [address] [place] [address], [place] [id number] Aug, [facility] [address] [address] [id number] [address] [place] [address], [place] [id number] Jul, [facility] [address] [id number] [address] [place] [address], [place] [id number] Jul, [facility] [address] [id number] [address] [place] [address], [place] [id number] Jul, [facility] [address] [id number] [address] [place] [address], [place] [id number] Jul, [facility] [address] [id number] [address] [place] [address], [place] [id number] Jul, [facility] [address] [id number] [address] [place] [address], [place] [id number] Jul, [facility] [address] [id number] [address] [place] [address], [place] [phone] Jul, [facility] [address] [id number] [address] [place] [id number] Jul, [facility] [address] [id number] [address] [place] [phone] Jun, [facility] [address] [id number] [address] [place] [phone] Jun, [facility] [address] [id number] [address] [place] [id number] Jun, [facility] [address] [id number] [address] [place] [phone] Jun, [facility] [address] [id number] [address] [place] [phone] May, [facility] [address] [id number] [address] [place] [phone] May, [facility] [address] [id number] [address] [place] [phone] May, [facility] [address] [id number] [address] [place] [phone] May, [facility] [address] [id number] [address] [place] [phone] May, [facility] [address] [id number] [address] [place] [id number] Apr, [facility] [address] [id number] [address] [place] [phone] Apr, IMMUNIZATIONS No Known Immunizations SOCIAL HISTORY [...]
--- OUTSIDE RECORDS SUMMARY | 2019-11-11 19:09 | XMS REPORT ---
Author Author [facility] Address [address] [place] [address] Care Team Providers Care Harp Action Assembler Name Role Phone GUILLERMO M[facility]ORD Unavailable PROBLEMS Type Condition ICD9-CM Code SMB65-NH Code Onset Dates Condition S tatus SNOMED Code Problem Social anxiety disorder F40.10 Active 29700124 Problem Hyperlipidemia E78.5 Active 01769 004 Problem Hypertension I10 Active 4923692 3 Problem Pure hypercholesterolemia E78.00 Acti ve 183645427 Problem Attention deficit disorder F90.0 Act shalom 393166832 Problem PTSD (post-traumatic stress disorder) F43.10 Active 01641592 Problem Bipolar 2 disorder F31.81 Active 8 4047015 Problem Chronic post-traumatic stress disorder (PTSD) F43. 12 Active 924447573 Problem Other chronic pain G89.29 Active 8 4584497 Problem Lumbago with sciatica, left side M54.42 Active 786420433 Problem Lumbago with sciatica, right side M54.41 Active [id number] ALLERGIES No Information ENCOUNTERS Encounter Location Date Diagnosis [facility] [address] [facility] [id number] [address] [place] [phone] Jan, [facility] [address] [facility] [id number] [address] [place] [phone] Dec, [facility] [address] [facility] [id number] [address] [place] [phone] Dec, Bipolar 2 disorder F31.81 [facility] [address] [facility] [id number] [address] [place] [phone] Oct, Bipolar 2 disorder F31.81 [facility] [address] [facility] [id number] [address] [place] [phone] Oct, Bipolar 2 disorder F31.81 ; Attention deficit disorder F90.0 ; Social anxiety disorder F40.10 and Chronic post-traumatic stress disorder (PTSD) F43.12 [facility] [address] [place] [id number] [place] [phone] Aug, Lumbago with sciatica, left side M54.42 and Lumbago with sciatica, right side M54.41 [facility] [address] [address] Aug, Bipolar 2 disorder F31.81 [facility] [address] [place] [id number] [place] [phone] Aug, Bipolar 2 disorder F31.81 [place] [address] [address] Aug, Bipolar 2 disorder F31.81 ; Attention deficit disorder F90.0 ; Social anxiety disorder F40.10 and PTSD (post-traumatic stress disorder) F43.10 [facility] [address] [address] Jul, [facility] [id number] [place] [address] Jun, Nasal congestion R09.81 ; Ac ping nonintractable headache, unspecified headache type R51 and Viral upper respiratory tract infection J06.9 [place] [address] [address] Jun, [facility] [address] [address] May, [place] [address] [address] May, [place] [address] [address] May, Bipolar 2 disorder F31.81 ; Social anxiety disorder F40.10 ; Chronic post-traumatic stress disorder (PTSD) F43.12 ; Attention deficit disorder F90.0 and Encounter for immunization Z23 [facility] [address] [facility] [id number] [address] [place] [address] Apr, [facility] [id number] [place] [address] Apr, Body aches R52 and Acute chely opharyngitis J00 [facility] [id number] [place] [phone] 24 Mar, 2018 Pure hypercholesterolemia E7 8.00 and Exertional chest pain R07.9 [facility] [address] [facility] [id number] [place] [address] Mar, Hyperlipidemia E78.5 ; Hyper tension I10 and Routine adult health maintenance Z00.00 [facility] [id number] [place] [address] 20 Mar, 2018 Hypertension I10 ; Hyperlipi demia E78.5 ; Chest pain, exertional R07.9 and Routine adult health maintenance Z00.00 [facility] [address] [address] 17 Mar, 2018 [place] [address] [address] Mar, Lumbago with sciatica, left side M54.42 and Lumbago with sciatica, right side M54.41 [place] [address] [address] Jan, [facility] [address] [address] Dec, Bipolar 2 disorder F31.81 ; Social anxiety disorder F40.10 and Chronic post-traumatic stress disorder (PTSD) F43.12 [place] [address] [place] [id number] [place] [address] Dec, [facility] [id number] [place] [address] Dec, [facility] [address] [place] [id number] [place] [address] Dec, Upper respiratory tract infe ction, unspecified type J06.9 [facility] [address] [id number] [address] [place] [address] October, [facility] [address] [id number] [address] [place] [address] Oct, Bipolar 2 disorder F31.81 ; Attention deficit disorder F90.0 ; Social anxiety disorder F40.10 and Chronic post-traumatic stress disorder (PTSD) F43.12 [facility] [address] [id number] [address] [place] [address] Oct, [facility] [address] [id number] [address] [place] [phone] Oct, [facility] [address] [id number] [address] [place] [phone] Aug, [facility] [address] [id number] [address] [place] [address] Aug, [facility] [address] [id number] [address] [place] [address] Jul, Strain of lumbar region, ini tial encounter S39.012A [facility] [address] [id number] [address] [place] [address] Jul, Lumbago with sciatica, left side M54.42 and Lumbago with sciatica, right side M54.41 [facility] [address] [id number] [address] [place] [address] Jul, Low back pain M54.5 and Othe r chronic pain G89.29 [facility] [address] [id number] [address] [place] [address] Jul, [facility] [address] [facility] [id number] [address] [place] [address] Jul, Bipolar 2 disorder F31.81 ; Attention deficit disorder F90.0 and Social anxiety disorder F40.10 [facility] [address] [facility] [id number] [address] [place] [address] Jun, [facility] [address] [facility] [id number] [address] [place] [id number] May, [facility] [address] [facility] [id number] [address] [place] [address] Apr, Bipolar 2 disorder F31.81 ; Attention deficit disorder F90.0 ; Social anxiety disorder F40.10 and Chronic post-traumatic stress disorder (PTSD) F43.12 [facility] [address] [facility] [id number] [address] [place] [phone] Apr, [facility] [address] [facility] [id number] [address] [place] [phone] Apr, Hyperlipidemia E78.5 [facility] [address] [facility] [id number] [address] [place] [id number] Mar, Encounter for immunization Z 23 and Tinea cruris B35.6 [facility] [address] [facility] [id number] [address] [place] [phone] Mar, [facility] [address] [facility] [id number] [address] [place] [phone] Jan, [facility] [address] [facility] [id number] [address] [place] [phone] Dec, [facility] [address] [facility] [id number] [address] [place] [address] Dec, [facility] [address] [facility] [id number] [address] [place] [address] Dec, Bipolar 2 disorder F31.81 ; Social anxiety disorder F40.10 and Attention deficit disorder F90.0 [facility] [address] [facility] [id number] [address] [place] [phone] Dec, [facility] [address] [facility] [id number] [address] [place] [phone] Dec, Hypertension I10 [facility] [address] [id number] [address] [place] [phone] October, [facility] [address] [id number] [address] [place] [phone] Oct, [facility] [address] [facility] [id number] [address] [place] [phone] Oct, Nasal congestion R09.81 [facility] [address] [id number] [address] [place] [phone] Oct, Social anxiety disorder F40. 10 ; Bipolar 2 disorder F31.81 and Attention deficit disorder F90.0 [facility] [address] [facility] [id number] [address] [place] [phone] Aug, [facility] [address] [facility] [id number] [address] [place] [phone] Aug, [facility] [address] [facility] [id number] [address] [place] [phone] Jul, Nasal congestion R09.81 [facility] [address] [facility] [id number] [address] [place] [phone] Jul, [facility] [address] [facility] [id number] [address] [place] [address] Jun, Bipolar 2 disorder F31.81 ; Attention deficit disorder F90.0 ; Social anxiety disorder F40.10 and Chronic post-traumatic stress disorder (PTSD) F43.12 [facility] [address] [id number] [address] [place] [phone] Jun, [facility] [address] [facility] [id number] [address] [place] [phone] May, [facility] [address] [facility] [id number] [address] [place] [id number] 14 Apr, 2016 Attention deficit disorder F 90.0 [facility] [address] [facility] [id number] [address] [place] [phone] Apr, Urinary hesitancy R39.11 ; H yperlipidemia E78.5 and Encounter for immunization Z23 [facility] [address] [facility] [id number] [address] [place] [phone] Apr, [facility] [address] [facility] [id number] [address] [place] [phone] Mar, [facility] [address] [facility] [id number] [address] [place] [phone] Jan, [facility] [address] [facility] [id number] [address] [place] [phone] Dec, [facility] [address] [facility] [id number] [address] [place] [phone] Dec, [facility] [address] [facility] [id number] [address] [place] [phone] Dec, Bipolar 2 disorder F31.81 ; Attention deficit disorder F90.0 ; Posttraumatic stress disorder F43.10 and Social anxiety disorder F40.10 [facility] [address] [facility] [id number] [address] [place] [id number] Dec, Scabies exposure Z20.89 and Scabies B86 [facility] [address] [facility] [id number] [address] [place] [phone] Dec, [facility] [address] [facility] [id number] [address] [place] [phone] Dec, Hypertension I10 and Gastroe sophageal reflux disease without esophagitis K21.9 [facility] [address] [facility] [id number] [address] [place] [phone] October, [facility] [address] [facility] [id number] [address] [place] [phone] October, [facility] [address] [facility] [id number] [address] [place] [address] Oct, Bipolar 2 disorder F31.81 ; Posttraumatic stress disorder F43.10 ; Attention deficit disorder F90.0 and Social anxiety disorder F40.10 [facility] [address] [facility] [id number] [address] [place] [phone] Oct, [facility] [address] [place] [address] [id number] [place] [address] Oct, Hypertension I10 and Nasal c ongestion R09.81 [facility] [address] [facility] [id number] [address] [place] [phone] Aug, [facility] [address] [facility] [id number] [place] [phone] Aug, [facility] [address] [phone] Aug, [facility] [address] [place] [id number] [place] [address] Aug, [facility] [address] [address] Aug, [facility] [address] [place] [address] [id number] [place] [address] Aug, Hypertension I10 and Tremor R25.1 [facility] [address] [place] [id number] [place] [address] Aug, Bipolar 2 disorder F31.81 ; Posttraumatic stress disorder F43.10 ; Attention deficit disorder F90.0 and Social anxiety disorder F40.10 [facility] [address] [place] [id number] [place] [phone] Jul, [facility] [address] [place] [id number] [place] [phone] Jul, Hyperlipidemia E78.5 [place] [address] [place] [address] [id number] [place] [address] Jul, Hypertension I10 and Hyperli pidemia E78.5 [facility] [address] [place] [id number] [place] [address] Jun, Bipolar 2 disorder F31.81 ; Posttraumatic stress disorder F43.10 ; Attention deficit disorder F90.0 and Social anxiety disorder F40.10 [facility] [address] [id number] [address] [place] [address] May, [facility] [address] [facility] [id number] [address] [place] [phone] May, [facility] [address] [facility] [id number] [address] [place] [address] Apr, Bipolar 2 disorder F31.81 ; Posttraumatic stress disorder F43.10 ; Attention deficit disorder F90.0 and Social phobia F40.10 [facility] [address] [facility] [id number] [address] [place] [phone] Apr, Bipolar 2 disorder F31.81 ; Posttraumatic stress disorder F43.10 and Attention deficit disorder F90.0 [facility] [address] [facility] [id number] [address] [place] [address] Apr, [facility] [address] [id number] [address] [place] [address] Apr, [facility] [address] [facility] [id number] [address] [place] [phone] Apr, [facility] [address] [facility] [id number] [address] [place] [phone] Mar, [facility] [address] [facility] [id number] [address] [place] [phone] Mar, [facility] [address] [id number] [address] [place] [phone] Jan, [facility] [address] [facility] [id number] [address] [place] [phone] Jan, [facility] [address] [facility] [id number] [address] [place] [phone] Jan, Bipolar II disorder 296.89 ; Posttraumatic stress disorder 309.81 ; Social phobia 300.23 and Attention deficit disorder of childhood without mention of hyperactivity 314.00 [facility] [address] [facility] [id number] [address] [place] [phone] Jan, Other and unspecified bipola r disorders 296.89 ; Posttraumatic stress disorder 309.81 and Attention deficit disorder of childhood without mention of hyperactivity 314.00 [facility] [address] [facility] [id number] [address] [place] [address] Jan, [facility] [address] [facility] [id number] [address] [place] [address] Dec, Other and unspecified bipola r disorders 296.89 ; Posttraumatic stress disorder 309.81 and Attention deficit disorder of childhood without mention of hyperactivity 314.00 [facility] [address] [facility] [id number] [address] [place] [address] Dec, Migraines 346.90 [facility] [address] [facility] [id number] [address] [place] [phone] Dec, Other and unspecified bipola r disorders 296.89 ; Posttraumatic stress disorder 309.81 and Attention deficit disorder of childhood without mention of hyperactivity 314.00 [facility] [address] [facility] [id number] [address] [place] [phone] Dec, [facility] [address] [facility] [id number] [address] [place] [address] Dec, Bipolar II disorder 296.89 ; Social phobia 300.23 ; Posttraumatic stress disorder 309.81 and Attention deficit disorder of childhood without mention of hyperactivity 314.00 [facility] [address] [facility] [id number] [address] [place] [address] Dec, Other and unspecified bipola r disorders 296.89 ; Posttraumatic stress disorder 309.81 and Attention deficit disorder of childhood without mention of hyperactivity 314.00 [facility] [address] [facility] [id number] [address] [place] [address] October, Other and unspecified bipola r disorders 296.89 ; Posttraumatic stress disorder 309.81 and Attention deficit disorder of childhood without mention of hyperactivity 314.00 [facility] [address] [facility] [id number] [address] [place] [phone] October, [facility] [address] [id number] [address] [place] [phone] October, [facility] [address] [id number] [address] [place] [phone] October, [facility] [address] [id number] [address] [place] [phone] October, [facility] [address] [facility] [id number] [address] [place] [address] October, Attention deficit disorder o f childhood without mention of hyperactivity 314.00 ; Posttraumatic stress disorder 309.81 ; Social phobia 300.23 and Other and unspecified bipolar disorders 296.89 [facility] [address] [id number] [address] [place] [phone] Oct, [facility] [address] [facility] [id number] [address] [place] [phone] Oct, [facility] [address] [id number] [address] [place] [phone] Aug, [facility] [address] [id number] [address] [place] [phone] Aug, [facility] [address] [id number] [address] [place] [phone] Aug, [facility] [address] [id number] [address] [place] [phone] Aug, [facility] [address] [id number] [address] [place] [phone] Aug, [facility] [address] [id number] [address] [place] [phone] Aug, [facility] [address] [id number] [address] [place] [phone] Aug, [facility] [address] [id number] [address] [place] [phone] Aug, [facility] [address] [id number] [facility] [place] [address] 17 Aug, 2014 [facility] [address] [id number] [facility] [place] [address] 17 Aug, 2014 [facility] [address] [id number] [address] [place] [address] 13 Aug, 2014 [facility] [address] [id number] [address] [place] [address] 13 Aug, 2014 [facility] [address] [id number] [address] [place] [address] 12 Aug, 2014 [facility] [address] [id number] [address] [place] [address], [place] [address] 12 Aug, 2014 [facility] [address] [id number] [address] [place] [address], [place] [address] 12 Aug, 2014 [facility] [address] [id number] [address] [place] [address], [place] [address] 12 Aug, 2014 [facility] [address] [id number] [address] [place] [address], [place] [address] Aug, [facility] [address] [id number] [address] [place] [address], [place] [address] 12 Aug, 2014 [facility] [address] [id number] [address] [place] [address], [place] [address] Aug, [facility] [address] [id number] [address] [place] [address], [place] [address] Aug, [facility] [address] [id number] [address] [place] [address], [place] [address] 04 Aug, 2014 [facility] [address] [id number] [address] [place] [address], [place] [address] 04 Aug, 2014 [facility] [address] [id number] [address] [place] [address], [place] [address] 03 Aug, 2014 [facility] [address] [id number] [address] [place] [address], [place] [address] Aug, [facility] [address] [id number] [address] [place] [address], [place] [address] Aug, [facility] [address] [id number] [address] [place] [address], [place] [address] Aug, [facility] [address] [id number] [address] [place] [address], [place] [address] Aug, [facility] [address] [id number] [address] [place] [address], [place] [address] Aug, [facility] [facility] [address] [id number] [address] [place] [address], [place] [address] Aug, [facility] [address] [id number] [address] [place] [address], [place] [address] Aug, [facility] [address] [id number] [address] [place] [address], [place] [address] Jul, [facility] [address] [id number] [address] [place] [address], [place] [address] Jul, [facility] [address] [id number] [address] [place] [address], [place] [address] Jul, [facility] [address] [id number] [address] [place] [address], [place] [address] Jul, [facility] [address] [id number] [address] [place] [address], [place] [address] Jul, [facility] [address] [id number] [address] [place] [id number] Jul, [facility] [address] [id number] [address] [place] [address], [place] [address] Jul, [facility] [address] [id number] [address] [place] [address], [place] [address] Jul, [facility] [address] [id number] [address] [place] [address], [place] [address] Jun, [facility] [address] [id number] [address] [place] [id number] Jun, [facility] [address] [id number] [address] [place] [id number] Jun, [facility] [address] [id number] [address] [place] [id number] Jun, [facility] [address] [id number] [address] [place] [id number] May, [facility] [address] [id number] [address] [place] [id number] May, [facility] [address] [id number] [address] [place] [phone] May, [facility] [address] [id number] [address] [place] [id number] May, [facility] [address] [id number] [address] [place] [id number] May, [facility] [address] [id number] [address] [place] [id number] Apr, [facility] [address] [id number] [address] [place] [id number] Apr, IMMUNIZATIONS No Known Immunizations SOCIAL HISTORY [...]
--- OUTSIDE RECORDS SUMMARY | 2019-11-11 19:09 | XMS REPORT ---
Author Author [place] Organization [facility] [place] Address [address] [place] [address] Care Team Providers Care Store Sales Leader Name Role Phone [place] Unavailable PROBLEMS Type Condition ICD9-CM Code [id number] Code Onset Dates Condition S tatus SNOMED Code Problem Social anxiety disorder F40.10 Active 76965944 Problem Hyperlipidemia E78.5 Active 34154 004 Problem Hypertension I10 Active 4420337 3 Problem Pure hypercholesterolemia E78.00 Acti ve 882866233 Problem Attention deficit disorder F90.0 Act shalom 242353233 Problem PTSD (post-traumatic stress disorder) F43.10 Active 09463287 Problem Bipolar 2 disorder F31.81 Active 8 5511627 Problem Chronic post-traumatic stress disorder (PTSD) F43. 12 Active 554945893 Problem Other chronic pain G89.29 Active 8 8104045 Problem Lumbago with sciatica, left side M54.42 Active 604093789 Problem Lumbago with sciatica, right side M54.41 Active [id number] ALLERGIES No Information ENCOUNTERS Encounter Location Date Diagnosis [facility] [place] [address] [facility] [id number] [address] [place] [phone] Jan, [facility] [place] [address] [facility] [id number] [address] [place] [address] Dec, [facility] [place] [address] [facility] [id number] [address] [place] [address] Dec, Bipolar 2 disorder F31.81 [facility] [place] [address] [facility] [id number] [address] [place] [address] Oct, Bipolar 2 disorder F31.81 [facility] [place] [address] [facility] [id number] [address] [place] [address] Oct, Bipolar 2 disorder F31.81 ; Attention deficit disorder F90.0 ; Social anxiety disorder F40.10 and Chronic post-traumatic stress disorder (PTSD) F43.12 [facility] [address] [place] [id number] [place] [address] Aug, Lumbago with sciatica, left side M54.42 and Lumbago with sciatica, right side M54.41 [facility] [place] [address] [address] Aug, Bipolar 2 disorder F31.81 [facility] [place] [address] [place] [id number] [place] [address] Aug, Bipolar 2 disorder F31.81 [place] [address] [address] Aug, Bipolar 2 disorder F31.81 ; Attention deficit disorder F90.0 ; Social anxiety disorder F40.10 and PTSD (post-traumatic stress disorder) F43.10 [facility] [place] [address] [address] Jul, [facility] [address] [place] [id number] [place] [address] Jun, Nasal congestion R09.81 ; Ac ping nonintractable headache, unspecified headache type R51 and Viral upper respiratory tract infection J06.9 [place] [address] [address] Jun, [facility] [place] [address] [address] May, [place] [address] [address] May, [place] [address] [address] May, Bipolar 2 disorder F31.81 ; Social anxiety disorder F40.10 ; Chronic post-traumatic stress disorder (PTSD) F43.12 ; Attention deficit disorder F90.0 and Encounter for immunization Z23 [facility] [place] [address] [facility] [id number] [address] [place] [address] Apr, [facility] [address] [place] [id number] [place] [address] Apr, Body aches R52 and Acute chely opharyngitis J00 [facility] [place] [address] [id number] [place] [address] 24 Mar, 2018 Pure hypercholesterolemia E7 8.00 and Exertional chest pain R07.9 [facility] [place] [address] [facility] [id number] [place] [address] Mar, Hyperlipidemia E78.5 ; Hyper tension I10 and Routine adult health maintenance Z00.00 [facility] [place] [address] [id number] [place] [phone] 20 Mar, 2018 Hypertension I10 ; Hyperlipi demia E78.5 ; Chest pain, exertional R07.9 and Routine adult health maintenance Z00.00 [facility] [place] [address] [address] 17 Mar, 2018 [place] [address] [address] Mar, Lumbago with sciatica, left side M54.42 and Lumbago with sciatica, right side M54.41 [place] [address] [address] Jan, [facility] [place] [address] [address] Dec, Bipolar 2 disorder F31.81 ; Social anxiety disorder F40.10 and Chronic post-traumatic stress disorder (PTSD) F43.12 [place] [address] [place] [id number] [place] [address] Dec, [facility] [place] [address] [id number] [place] [address] Dec, [facility] [address] [place] [id number] [place] [address] Dec, Upper respiratory tract infe ction, unspecified type J06.9 [facility] [place] [address] [id number] [address] [place] [address] October, [facility] [place] [address] [id number] [address] [place] [address] Oct, Bipolar 2 disorder F31.81 ; Attention deficit disorder F90.0 ; Social anxiety disorder F40.10 and Chronic post-traumatic stress disorder (PTSD) F43.12 [facility] [place] [address] [id number] [address] [place] [phone] Oct, [facility] [place] [address] [id number] [address] [place] [address] Oct, [facility] [place] [address] [id number] [address] [place] [address] Aug, [facility] [place] [address] [id number] [address] [place] [address] Aug, [facility] [place] [address] [id number] [address] [place] [address] Jul, Strain of lumbar region, ini tial encounter S39.012A [facility] [address] [id number] [address] [place] [address] Jul, Lumbago with sciatica, left side M54.42 and Lumbago with sciatica, right side M54.41 [facility] [address] [id number] [address] [place] [phone] Jul, Low back pain M54.5 and Othe r chronic pain G89.29 [facility] [place] [address] [id number] [address] [place] [id number] Jul, [facility] [place] [address] [facility] [id number] [address] [place] [address] Jul, Bipolar 2 disorder F31.81 ; Attention deficit disorder F90.0 and Social anxiety disorder F40.10 [facility] [place] [address] [facility] [id number] [address] [place] [id number] Jun, [facility] [place] [address] [facility] [id number] [address] [place] [address] May, [facility] [place] [address] [facility] [id number] [address] [place] [address] Apr, Bipolar 2 disorder F31.81 ; Attention deficit disorder F90.0 ; Social anxiety disorder F40.10 and Chronic post-traumatic stress disorder (PTSD) F43.12 [facility] [place] [address] [facility] [id number] [address] [place] [phone] Apr, [facility] [place] [address] [facility] [id number] [address] [place] [address] Apr, Hyperlipidemia E78.5 [facility] [address] [facility] [id number] [address] [place] [address] Mar, Encounter for immunization Z 23 and Tinea cruris B35.6 [facility] [place] [address] [facility] [id number] [address] [place] [phone] Mar, [facility] [place] [address] [facility] [id number] [address] [place] [address] Jan, [facility] [place] [address] [facility] [id number] [address] [place] [phone] Dec, [facility] [place] [address] [facility] [id number] [address] [place] [address] Dec, [facility] [place] [address] [facility] [id number] [address] [place] [address] Dec, Bipolar 2 disorder F31.81 ; Social anxiety disorder F40.10 and Attention deficit disorder F90.0 [facility] [place] [address] [facility] [id number] [address] [place] [phone] Dec, [facility] [place] [address] [facility] [id number] [address] [place] [address] Dec, Hypertension I10 [facility] [place] [address] [id number] [address] [place] [phone] October, [facility] [place] [address] [id number] [address] [place] [address] Oct, [facility] [place] [address] [facility] [id number] [address] [place] [id number] Oct, Nasal congestion R09.81 [facility] [place] [address] [id number] [address] [place] [address] Oct, Social anxiety disorder F40. 10 ; Bipolar 2 disorder F31.81 and Attention deficit disorder F90.0 [facility] [place] [address] [facility] [id number] [address] [place] [address] Aug, [facility] [place] [address] [facility] [id number] [address] [place] [address] Aug, [facility] [place] [address] [facility] [id number] [address] [place] [address] Jul, Nasal congestion R09.81 [facility] [place] [address] [facility] [id number] [address] [place] [phone] Jul, [facility] [place] [address] [facility] [id number] [address] [place] [address] Jun, Bipolar 2 disorder F31.81 ; Attention deficit disorder F90.0 ; Social anxiety disorder F40.10 and Chronic post-traumatic stress disorder (PTSD) F43.12 [facility] [place] [address] [id number] [address] [place] [address] Jun, [facility] [place] [address] [facility] [id number] [address] [place] [phone] May, [facility] [place] [address] [facility] [id number] [address] [place] [phone] 14 Apr, 2016 Attention deficit disorder F 90.0 [facility] [place] [address] [facility] [id number] [address] [place] [id number] Apr, Urinary hesitancy R39.11 ; H yperlipidemia E78.5 and Encounter for immunization Z23 [facility] [place] [address] [facility] [id number] [address] [place] [phone] Apr, [facility] [place] [address] [facility] [id number] [address] [place] [address] Mar, [facility] [place] [address] [facility] [id number] [address] [place] [address] Jan, [facility] [place] [address] [facility] [id number] [address] [place] [address] Dec, [facility] [place] [address] [facility] [id number] [address] [place] [phone] Dec, [facility] [place] [address] [facility] [id number] [address] [place] [address] Dec, Bipolar 2 disorder F31.81 ; Attention deficit disorder F90.0 ; Posttraumatic stress disorder F43.10 and Social anxiety disorder F40.10 [facility] [address] [facility] [id number] [address] [place] [address] Dec, Scabies exposure Z20.89 and Scabies B86 [facility] [place] [address] [facility] [id number] [address] [place] [phone] Dec, [facility] [place] [address] [facility] [id number] [address] [place] [address] Dec, Hypertension I10 and Gastroe sophageal reflux disease without esophagitis K21.9 [facility] [place] [address] [facility] [id number] [address] [place] [address] October, [facility] [place] [address] [facility] [id number] [address] [place] [address] October, [facility] [place] [address] [facility] [id number] [address] [place] [address] Oct, Bipolar 2 disorder F31.81 ; Posttraumatic stress disorder F43.10 ; Attention deficit disorder F90.0 and Social anxiety disorder F40.10 [facility] [place] [address] [facility] [id number] [address] [place] [phone] Oct, [facility] [place] [address] [place] [id number] [place] [address] Oct, Hypertension I10 and Nasal c ongestion R09.81 [facility] [place] [address] [facility] [id number] [address] [place] [phone] Aug, [facility] [place] [address] [facility] [id number] [place] [phone] Aug, [facility] [place] [address] [phone] Aug, [facility] [place] [address] [place] [id number] [place] [address] Aug, [facility] [place] [address] [address] Aug, [facility] [place] [address] [place] [id number] [place] [address] Aug, Hypertension I10 and Tremor R25.1 [facility] [place] [address] [place] [id number] [place] [address] Aug, Bipolar 2 disorder F31.81 ; Posttraumatic stress disorder F43.10 ; Attention deficit disorder F90.0 and Social anxiety disorder F40.10 [facility] [place] [address] [place] [id number] [address] [place] [phone] Jul, [facility] [place] [address] [place] [id number] [address] [place] [address] Jul, Hyperlipidemia E78.5 [place] [address] [place] [id number] [place] [address] Jul, Hypertension I10 and Hyperli pidemia E78.5 [facility] [place] [address] [place] [id number] [place] [address] Jun, Bipolar 2 disorder F31.81 ; Posttraumatic stress disorder F43.10 ; Attention deficit disorder F90.0 and Social anxiety disorder F40.10 [facility] [place] [address] [id number] [address] [place] [address] May, [facility] [place] [address] [facility] [id number] [address] [place] [address] May, [facility] [place] [address] [facility] [id number] [address] [place] [address] Apr, Bipolar 2 disorder F31.81 ; Posttraumatic stress disorder F43.10 ; Attention deficit disorder F90.0 and Social phobia F40.10 [facility] [place] [address] [facility] [id number] [address] [place] [address] Apr, Bipolar 2 disorder F31.81 ; Posttraumatic stress disorder F43.10 and Attention deficit disorder F90.0 [facility] [place] [address] [facility] [id number] [address] [place] [address] Apr, [facility] [place] [address] [id number] [address] [place] [address] Apr, [facility] [place] [address] [facility] [id number] [address] [place] [phone] Apr, [facility] [place] [address] [facility] [id number] [address] [place] [address] Mar, [facility] [place] [address] [facility] [id number] [address] [place] [address] Mar, [facility] [place] [address] [id number] [address] [place] [address] Jan, [facility] [place] [address] [facility] [id number] [address] [place] [address] Jan, [facility] [place] [address] [facility] [id number] [address] [place] [address] Jan, Bipolar II disorder 296.89 ; Posttraumatic stress disorder 309.81 ; Social phobia 300.23 and Attention deficit disorder of childhood without mention of hyperactivity 314.00 [facility] [place] [address] [facility] [id number] [address] [place] [address] Jan, Other and unspecified bipola r disorders 296.89 ; Posttraumatic stress disorder 309.81 and Attention deficit disorder of childhood without mention of hyperactivity 314.00 [facility] [place] [address] [facility] [id number] [address] [place] [phone] Jan, [facility] [place] [address] [facility] [id number] [address] [place] [address] Dec, Other and unspecified bipola r disorders 296.89 ; Posttraumatic stress disorder 309.81 and Attention deficit disorder of childhood without mention of hyperactivity 314.00 [facility] [place] [address] [facility] [id number] [address] [place] [address] Dec, Migraines 346.90 [facility] [place] [address] [facility] [id number] [address] [place] [address] Dec, Other and unspecified bipola r disorders 296.89 ; Posttraumatic stress disorder 309.81 and Attention deficit disorder of childhood without mention of hyperactivity 314.00 [facility] [place] [address] [facility] [id number] [address] [place] [id number] Dec, [facility] [place] [address] [facility] [id number] [address] [place] [phone] Dec, Bipolar II disorder 296.89 ; Social phobia 300.23 ; Posttraumatic stress disorder 309.81 and Attention deficit disorder of childhood without mention of hyperactivity 314.00 [facility] [place] [address] [facility] [id number] [address] [place] [id number] Dec, Other and unspecified bipola r disorders 296.89 ; Posttraumatic stress disorder 309.81 and Attention deficit disorder of childhood without mention of hyperactivity 314.00 [facility] [place] [address] [facility] [id number] [address] [place] [id number] October, Other and unspecified bipola r disorders 296.89 ; Posttraumatic stress disorder 309.81 and Attention deficit disorder of childhood without mention of hyperactivity 314.00 [facility] [place] [address] [facility] [id number] [address] [place] [phone] October, [facility] [place] [address] [id number] [address] [place] [phone] October, [facility] [place] [address] [id number] [address] [place] [phone] October, [facility] [place] [address] [id number] [address] [place] [id number] October, [facility] [place] [address] [facility] [id number] [address] [place] [phone] October, Attention deficit disorder o f childhood without mention of hyperactivity 314.00 ; Posttraumatic stress disorder 309.81 ; Social phobia 300.23 and Other and unspecified bipolar disorders 296.89 [facility] [place] [address] [id number] [address] [place] [id number] Oct, [facility] [place] [address] [facility] [id number] [address] [place] [phone] Oct, [facility] [place] [address] [id number] [address] [place] [phone] Aug, [facility] [place] [address] [id number] [address] [place] [id number] Aug, [facility] [place] [address] [id number] [address] [place] [phone] Aug, [facility] [place] [address] [id number] [address] [place] [id number] Aug, [facility] [address] [id number] [address] [place] [phone] Aug, [facility] [address] [address] [id number] [address] [place] [id number] Aug, [facility] [address] [id number] [address] [place] [id number] Aug, [facility] [place] [address] [id number] [address] [place] [id number] Aug, [facility] [address] [id number] [facility] [place] [address] 17 Aug, 2014 [facility] [address] [id number] [facility] [place] [address] 17 Aug, 2014 [facility] [address] [id number] [facility] [place] [address] 13 Aug, 2014 [facility] [address] [id number] [facility] [place] [address] 13 Aug, 2014 [facility] [address] [id number] [facility] [place] [address] 12 Aug, 2014 [facility] [address] [id number] [address] [place] [address], [place] [address] 12 Aug, 2014 [facility] [address] [id number] [address] [place] [address], [place] [address] 12 Aug, 2014 [facility] [address] [id number] [address] [place] [address], [place] [address] 12 Aug, 2014 [facility] [address] [id number] [address] [place] [address], [place] [address] Aug, [facility] [address] [id number] [address] [place] [address], [place] [address] 12 Aug, 2014 [facility] [address] [id number] [address] [place] [address], [place] [address] Aug, [facility] [address] [id number] [address] [place] [address], [place] [address] Aug, [facility] [address] [id number] [address] [place] [address], [place] [address] 04 Aug, 2014 [facility] [address] [id number] [address] [place] [address], [place] [address] 04 Aug, 2014 [facility] [address] [id number] [address] [place] [address], [place] [address] 03 Aug, 2014 [facility] [address] [id number] [address] [place] [address], [place] [address] Aug, [facility] [address] [id number] [address] [place] [address], [place] [address] Aug, [facility] [address] [id number] [address] [place] [address], [place] [address] Aug, [facility] [address] [id number] [address] [place] [address], [place] [address] Aug, [facility] [address] [id number] [address] [place] [address], [place] [address] Aug, [facility] [address] [id number] [address] [place] [address], [place] [address] Aug, [facility] [address] [id number] [address] [place] [address], [place] [address] Aug, [facility] [address] [id number] [address] [place] [address], [place] [address] Jul, [facility] [address] [id number] [address] [place] [address], [place] [address] Jul, [facility] [address] [id number] [address] [place] [address], [place] [address] Jul, [facility] [address] [id number] [address] [place] [address], [place] [address] Jul, [facility] [address] [id number] [address] [place] [address], [place] [address] Jul, [facility] [address] [id number] [address] [place] [address] Jul, [facility] [address] [id number] [address] [place] [address], [place] [address] Jul, [facility] [address] [id number] [address] [place] [address], [place] [address] Jul, [facility] [address] [id number] [address] [place] [address], [place] [address] Jun, [facility] [place] [address] [id number] [address] [place] [address] Jun, [facility] [place] [address] [id number] [address] [place] [address] Jun, [facility] [place] [address] [id number] [address] [place] [address] Jun, [facility] [place] [address] [id number] [address] [place] [address] May, [facility] [place] [address] [id number] [address] [place] [address] May, [facility] [place] [address] [id number] [address] [place] [address] May, [facility] [place] [address] [id number] [address] [place] [address] May, [facility] [place] [address] [id number] [address] [place] [address] May, [facility] [place] [address] [id number] [address] [place] [address] Apr, [facility] [place] [address] [id number] [address] [place] [address] Apr, IMMUNIZATIONS No Known Immunizations SOCIAL HISTORY Never Assessed REASON FOR VISIT PLAN OF CARE VITAL SIGNS Height 64 in 2014-09-23 Weight 160 lbs 2014-09-23 Temperature 97.6 degrees Fahrenheit 2014-09-23 Heart Rate 80 bpm 2014-09-23 Respiratory Rate 22 2014-09-23 Blood pressure systolic 120 mmHg 2014-09-23 Blood pressure diastolic 68 mmHg 2014-09-23 MEDICATIONS Unknown Medications RESULTS No Results PROCEDURES [...]
--- OUTSIDE RECORDS SUMMARY | 2019-11-11 19:09 | XMS REPORT ---
Author Author [place] Organization [facility] Address [address] [place] [address] Care Team Providers Care Legal Receptionist Name Role Phone DONNAKRISTYSKYLAR Unavailable PROBLEMS Type Condition ICD9-CM Code NYS23-XB Code Onset Dates Condition S tatus SNOMED Code Problem Social anxiety disorder F40.10 Active 01097657 Problem Hyperlipidemia E78.5 Active 71722 004 Problem Hypertension I10 Active 8593010 3 Problem Pure hypercholesterolemia E78.00 Acti ve 970727915 Problem Attention deficit disorder F90.0 Act shalom 369292060 Problem PTSD (post-traumatic stress disorder) F43.10 Active 29921298 Problem Bipolar 2 disorder F31.81 Active 8 0065795 Problem Chronic post-traumatic stress disorder (PTSD) F43. 12 Active 178718143 Problem Other chronic pain G89.29 Active 8 8515451 Problem Lumbago with sciatica, left side M54.42 Active 412467062 Problem Lumbago with sciatica, right side M54.41 Active [id number] ALLERGIES No Information ENCOUNTERS Encounter Location Date Diagnosis [facility] [address] [facility] [id number] [address] [place] [address] Jan, [facility] [address] [facility] [id number] [address] [place] [id number] Dec, [facility] [address] [facility] [id number] [address] [place] [address] Dec, Bipolar 2 disorder F31.81 [facility] [address] [facility] [id number] [address] [place] [address] Oct, Bipolar 2 disorder F31.81 [facility] [address] [facility] [id number] [address] [place] [address] Oct, Bipolar 2 disorder F31.81 ; Attention deficit disorder F90.0 ; Social anxiety disorder F40.10 and Chronic post-traumatic stress disorder (PTSD) F43.12 [facility] [address] [place] [id number] [place] [address] Aug, Lumbago with sciatica, left side M54.42 and Lumbago with sciatica, right side M54.41 [facility] [address] [address] Aug, Bipolar 2 disorder F31.81 [facility] [address] [place] [id number] [place] [address] Aug, Bipolar 2 disorder F31.81 [facility] [address] [address] Aug, Bipolar 2 disorder F31.81 ; Attention deficit disorder F90.0 ; Social anxiety disorder F40.10 and PTSD (post-traumatic stress disorder) F43.10 [facility] [address] [address] Jul, [facility] [address] [place] [id number] [place] [address] Jun, Nasal congestion R09.81 ; Ac ping nonintractable headache, unspecified headache type R51 and Viral upper respiratory tract infection J06.9 [facility] [address] [address] Jun, [facility] [address] [address] May, [facility] [address] [address] May, [facility] [address] [address] May, Bipolar 2 disorder F31.81 ; Social anxiety disorder F40.10 ; Chronic post-traumatic stress disorder (PTSD) F43.12 ; Attention deficit disorder F90.0 and Encounter for immunization Z23 [facility] [address] [facility] [id number] [address] [place] [phone] Apr, [facility] [address] [facility] [id number] [address] [place] [address] Apr, Body aches R52 and Acute chely opharyngitis J00 [facility] [address] [facility] [id number] [address] [place] [address] Mar, Pure hypercholesterolemia E7 8.00 and Exertional chest pain R07.9 [facility] [address] [facility] [id number] [address] [place] [address] Mar, Hyperlipidemia E78.5 ; Hyper tension I10 and Routine adult health maintenance Z00.00 [facility] [address] [facility] [id number] [address] [place] [id number] 20 Mar, 2018 Hypertension I10 ; Hyperlipi demia E78.5 ; Chest pain, exertional R07.9 and Routine adult health maintenance Z00.00 [facility] [address] [place] [id number] [address] [place] [address] 17 Mar, 2018 [place] [address] [address] Mar, Lumbago with sciatica, left side M54.42 and Lumbago with sciatica, right side M54.41 [place] [address] [place] [id number] [address] [place] [address] Jan, [facility] [address] [place] [id number] [address] [place] [address] Dec, Bipolar 2 disorder F31.81 ; Social anxiety disorder F40.10 and Chronic post-traumatic stress disorder (PTSD) F43.12 [place] [address] [facility] [id number] [address] [place] [address] Dec, [facility] [address] [place] [id number] [address] [place] [address] Dec, [facility] [address] [place] [id number] [address] [place] [address] Dec, Upper respiratory tract infe ction, unspecified type J06.9 [facility] [address] [id number] [address] [place] [address] October, [facility] [address] [id number] [address] [place] [address] Oct, Bipolar 2 disorder F31.81 ; Attention deficit disorder F90.0 ; Social anxiety disorder F40.10 and Chronic post-traumatic stress disorder (PTSD) F43.12 [facility] [address] [id number] [address] [place] [address] Oct, [facility] [address] [id number] [address] [place] [phone] Oct, [facility] [address] [id number] [address] [place] [address] Aug, [facility] [address] [id number] [address] [place] [address] Aug, [facility] [address] [id number] [address] [place] [address] Jul, Strain of lumbar region, ini tial encounter S39.012A [facility] [address] [id number] [address] [place] [address] Jul, Lumbago with sciatica, left side M54.42 and Lumbago with sciatica, right side M54.41 [facility] [address] [id number] [address] [place] [id number] Jul, Low back pain M54.5 and Othe r chronic pain G89.29 [facility] [address] [id number] [address] [place] [address] Jul, [facility] [address] [facility] [id number] [address] [place] [address] Jul, Bipolar 2 disorder F31.81 ; Attention deficit disorder F90.0 and Social anxiety disorder F40.10 [facility] [address] [facility] [id number] [address] [place] [address] Jun, [facility] [address] [facility] [id number] [address] [place] [address] May, [facility] [address] [facility] [id number] [address] [place] [address] Apr, Bipolar 2 disorder F31.81 ; Attention deficit disorder F90.0 ; Social anxiety disorder F40.10 and Chronic post-traumatic stress disorder (PTSD) F43.12 [facility] [address] [facility] [id number] [address] [place] [id number] Apr, [facility] [address] [facility] [id number] [address] [place] [address] Apr, Hyperlipidemia E78.5 [facility] [address] [facility] [id number] [address] [place] [id number] Mar, Encounter for immunization Z 23 and Tinea cruris B35.6 [facility] [address] [facility] [id number] [address] [place] [id number] Mar, [facility] [address] [facility] [id number] [address] [place] [address] Jan, [facility] [address] [facility] [id number] [address] [place] [id number] Dec, [facility] [address] [facility] [id number] [address] [place] [address] Dec, [facility] [address] [facility] [id number] [address] [place] [phone] Dec, Bipolar 2 disorder F31.81 ; Social anxiety disorder F40.10 and Attention deficit disorder F90.0 [facility] [address] [facility] [id number] [address] [place] [phone] Dec, [facility] [address] [facility] [id number] [address] [place] [id number] Dec, Hypertension I10 [facility] [address] [id number] [address] [place] [id number] October, [facility] [address] [id number] [address] [place] [id number] Oct, [facility] [address] [facility] [id number] [address] [place] [phone] Oct, Nasal congestion R09.81 [facility] [address] [id number] [address] [place] [address] Oct, Social anxiety disorder F40. 10 ; Bipolar 2 disorder F31.81 and Attention deficit disorder F90.0 [facility] [address] [id number] [address] [place] [phone] Aug, [facility] [address] [facility] [id number] [address] [place] [id number] Aug, [facility] [address] [facility] [id number] [address] [place] [address] Jul, Nasal congestion R09.81 [facility] [address] [id number] [address] [place] [id number] Jul, [facility] [address] [facility] [id number] [address] [place] [address] Jun, Bipolar 2 disorder F31.81 ; Attention deficit disorder F90.0 ; Social anxiety disorder F40.10 and Chronic post-traumatic stress disorder (PTSD) F43.12 [facility] [address] [id number] [address] [place] [id number] Jun, [facility] [address] [facility] [id number] [address] [place] [phone] May, [facility] [address] [facility] [id number] [address] [place] [id number] 14 Apr, 2016 Attention deficit disorder F 90.0 [facility] [address] [facility] [id number] [address] [place] [id number] Apr, Urinary hesitancy R39.11 ; H yperlipidemia E78.5 and Encounter for immunization Z23 [facility] [address] [facility] [id number] [address] [place] [phone] Apr, [facility] [address] [facility] [id number] [address] [place] [phone] Mar, [facility] [address] [facility] [id number] [address] [place] [phone] Jan, [facility] [address] [facility] [id number] [address] [place] [phone] Dec, [facility] [address] [facility] [id number] [address] [place] [id number] Dec, [facility] [address] [facility] [id number] [address] [place] [phone] Dec, Bipolar 2 disorder F31.81 ; Attention deficit disorder F90.0 ; Posttraumatic stress disorder F43.10 and Social anxiety disorder F40.10 [facility] [address] [facility] [id number] [address] [place] [id number] Dec, Scabies exposure Z20.89 and Scabies B86 [facility] [address] [facility] [id number] [address] [place] [phone] Dec, [facility] [address] [facility] [id number] [address] [place] [id number] Dec, Hypertension I10 and Gastroe sophageal reflux disease without esophagitis K21.9 [facility] [address] [facility] [id number] [address] [place] [phone] October, [facility] [address] [facility] [id number] [address] [place] [phone] October, [facility] [address] [facility] [id number] [address] [place] [address] Oct, Bipolar 2 disorder F31.81 ; Posttraumatic stress disorder F43.10 ; Attention deficit disorder F90.0 and Social anxiety disorder F40.10 [facility] [address] [facility] [id number] [address] [place] [address] Oct, [facility] [address] [facility] [id number] [address] [place] [id number] Oct, Hypertension I10 and Nasal c ongestion R09.81 [facility] [address] [facility] [id number] [address] [place] [id number] Aug, [facility] [address] [facility] [id number] [place] [phone] Aug, [facility] [address] [facility] [id number] [place] [phone] Aug, [facility] [address] [place] [id number] [place] [address] Aug, [facility] [address] [address] Aug, [facility] [address] [place] [id number] [place] [address] Aug, Hypertension I10 and Tremor R25.1 [facility] [address] [place] [id number] [place] [address] Aug, Bipolar 2 disorder F31.81 ; Posttraumatic stress disorder F43.10 ; Attention deficit disorder F90.0 and Social anxiety disorder F40.10 [facility] [address] [place] [id number] [address] [place] [id number] Jul, [facility] [address] [place] [id number] [address] [place] [address] Jul, Hyperlipidemia E78.5 [place] [address] [place] [id number] [address] [place] [id number] Jul, Hypertension I10 and Hyperli pidemia E78.5 [facility] [address] [place] [id number] [address] [place] [address] Jun, Bipolar 2 disorder F31.81 ; Posttraumatic stress disorder F43.10 ; Attention deficit disorder F90.0 and Social anxiety disorder F40.10 [facility] [address] [facility] [id number] [address] [place] [address] May, [facility] [address] [facility] [id number] [address] [place] [phone] May, [facility] [address] [facility] [id number] [address] [place] [address] Apr, Bipolar 2 disorder F31.81 ; Posttraumatic stress disorder F43.10 ; Attention deficit disorder F90.0 and Social phobia F40.10 [facility] [address] [facility] [id number] [address] [place] [address] Apr, Bipolar 2 disorder F31.81 ; Posttraumatic stress disorder F43.10 and Attention deficit disorder F90.0 [facility] [address] [facility] [id number] [address] [place] [id number] Apr, [facility] [address] [facility] [id number] [address] [place] [id number] Apr, [facility] [address] [facility] [id number] [address] [place] [phone] Apr, [facility] [address] [facility] [id number] [address] [place] [phone] Mar, [facility] [address] [facility] [id number] [address] [place] [phone] Mar, [facility] [address] [facility] [id number] [address] [place] [id number] Jan, [facility] [address] [facility] [id number] [address] [place] [phone] Jan, [facility] [address] [facility] [id number] [address] [place] [address] Jan, Bipolar II disorder 296.89 ; Posttraumatic stress disorder 309.81 ; Social phobia 300.23 and Attention deficit disorder of childhood without mention of hyperactivity 314.00 [facility] [address] [facility] [id number] [address] [place] [address] Jan, Other and unspecified bipola r disorders 296.89 ; Posttraumatic stress disorder 309.81 and Attention deficit disorder of childhood without mention of hyperactivity 314.00 [facility] [address] [facility] [id number] [address] [place] [address] Jan, [facility] [address] [facility] [id number] [address] [place] [address] Dec, Other and unspecified bipola r disorders 296.89 ; Posttraumatic stress disorder 309.81 and Attention deficit disorder of childhood without mention of hyperactivity 314.00 [facility] [address] [facility] [id number] [address] [place] [address] Dec, Migraines 346.90 [facility] [address] [facility] [id number] [address] [place] [address] Dec, Other and unspecified bipola r disorders 296.89 ; Posttraumatic stress disorder 309.81 and Attention deficit disorder of childhood without mention of hyperactivity 314.00 [facility] [address] [facility] [id number] [address] [place] [id number] Dec, [facility] [address] [facility] [id number] [address] [place] [id number] Dec, Bipolar II disorder 296.89 ; Social phobia 300.23 ; Posttraumatic stress disorder 309.81 and Attention deficit disorder of childhood without mention of hyperactivity 314.00 [facility] [address] [facility] [id number] [address] [place] [address] Dec, Other and unspecified bipola r disorders 296.89 ; Posttraumatic stress disorder 309.81 and Attention deficit disorder of childhood without mention of hyperactivity 314.00 [facility] [address] [facility] [id number] [address] [place] [address] October, Other and unspecified bipola r disorders 296.89 ; Posttraumatic stress disorder 309.81 and Attention deficit disorder of childhood without mention of hyperactivity 314.00 [facility] [address] [facility] [id number] [address] [place] [id number] October, [facility] [address] [id number] [address] [place] [phone] October, [facility] [address] [id number] [address] [place] [phone] October, [facility] [address] [facility] [id number] [address] [place] [address] October, [facility] [address] [id number] [address] [place] [id number] October, Attention deficit disorder o f childhood without mention of hyperactivity 314.00 ; Posttraumatic stress disorder 309.81 ; Social phobia 300.23 and Other and unspecified bipolar disorders 296.89 [facility] [address] [id number] [address] [place] [phone] Oct, [facility] [address] [id number] [address] [place] [phone] Oct, [facility] [address] [id number] [address] [place] [phone] Aug, [facility] [address] [id number] [address] [place] [id number] Aug, [facility] [address] [id number] [address] [place] [phone] Aug, [facility] [address] [id number] [address] [place] [phone] Aug, [facility] [address] [id number] [address] [place] [phone] Aug, [facility] [address] [id number] [address] [place] [phone] Aug, [facility] [address] [id number] [address] [place] [id number] Aug, [facility] [address] [id number] [address] [place] [phone] Aug, [facility] [address] [id number] [facility] [place] [id number] 17 Aug, 2014 [facility] [address] [id number] [facility] [place] [address] 17 Aug, 2014 [facility] [address] [id number] [facility] [place] [address] 13 Aug, 2014 [facility] [address] [id number] [address] [place] [address], [place] [id number] 13 Aug, 2014 [facility] [address] [id number] [address] [place] [address], [place] [address] 12 Aug, 2014 [facility] [address] [id number] [address] [place] [address], [place] [address] 12 Aug, 2014 [facility] [address] [id number] [address] [place] [address], [place] [id number] 12 Aug, 2014 [facility] [address] [id number] [address] [place] [address], [place] [id number] 12 Aug, 2014 [facility] [address] [id number] [address] [place] [address], [place] [id number] 12 Aug, 2014 [facility] [address] [id number] [address] [place] [address], [place] [id number] 12 Aug, 2014 [facility] [address] [id number] [address] [place] [address], [place] [id number] 11 Aug, 2014 [facility] [address] [id number] [address] [place] [address], [place] [id number] 11 Aug, 2014 [facility] [address] [id number] [address] [place] [address], [place] [id number] 04 Aug, 2014 [facility] [address] [id number] [address] [place] [address], [place] [id number] 04 Aug, 2014 [facility] [address] [id number] [address] [place] [address], [place] [id number] 03 Aug, 2014 [facility] [address] [id number] [address] [place] [address], [place] [id number] Aug, [facility] [address] [id number] [address] [place] [address], [place] [id number] Aug, [facility] [address] [id number] [address] [place] [address], [place] [id number] Aug, [facility] [address] [id number] [address] [place] [address], [place] [id number] Aug, [facility] [address] [id number] [address] [place] [address], [place] [id number] Aug, [facility] [address] [id number] [address] [place] [address], [place] [address] Aug, [facility] [address] [id number] [address] [place] [address], [place] [address] Aug, [facility] [address] [id number] [address] [place] [address], [place] [address] Jul, [facility] [address] [id number] [address] [place] [address], [place] [id number] Jul, [facility] [address] [id number] [address] [place] [address], [place] [address] Jul, [facility] [address] [id number] [address] [place] [address], [place] [id number] Jul, [facility] [address] [id number] [address] [place] [address], [place] [address] Jul, [facility] [address] [id number] [address] [place] [id number] Jul, [facility] [address] [id number] [address] [place] [address], [place] [id number] Jul, [facility] [address] [id number] [address] [place] [address], [place] [id number] Jul, [facility] [address] [id number] [address] [place] [address], [place] [id number] Jun, [facility] [address] [id number] [address] [place] [id number] Jun, [facility] [address] [id number] [address] [place] [id number] Jun, [facility] [address] [id number] [address] [place] [id number] Jun, [facility] [address] [id number] [address] [place] [id number] May, [facility] [address] [id number] [address] [place] [id number] May, [facility] [address] [id number] [address] [place] [id number] May, [facility] [address] [id number] [address] [place] [id number] May, [facility] [address] [id number] [address] [place] [id number] May, [facility] [address] [id number] [address] [place] [id number] Apr, [facility] [address] [id number] [address] [place] [id number] Apr, IMMUNIZATIONS No Known Immunizations SOCIAL HISTORY Never Assessed REASON FOR VISIT PLAN OF CARE VITAL SIGNS MEDICATIONS Unknown Medications RESULTS No Results PROCEDURES Procedure Date Ordered Result Body Site PSYTX PT&/FAMILY 45 MINUTES September 25, 2014 INSTRUCTIONS MEDICATIONS ADMINISTERED No Known Medications [...]
--- OUTSIDE RECORDS SUMMARY | 2019-11-11 19:09 | XMS REPORT ---
Author Author [place] Organization [facility] Address [address] [place] [address] Care Team Providers Care Plastic Top Assembler Name Role Phone FALLON JOHNSON Unavailable PROBLEMS Type Condition ICD9-CM Code [id number] Code Onset Dates Condition S tatus SNOMED Code Problem Social anxiety disorder F40.10 Active 03188936 Problem Hyperlipidemia E78.5 Active 45118 004 Problem Hypertension I10 Active 4105393 3 Problem Pure hypercholesterolemia E78.00 Acti ve 409778798 Problem Attention deficit disorder F90.0 Act shalom 085441949 Problem PTSD (post-traumatic stress disorder) F43.10 Active 47747959 Problem Bipolar 2 disorder F31.81 Active 8 4564670 Problem Chronic post-traumatic stress disorder (PTSD) F43. 12 Active 051470806 Problem Other chronic pain G89.29 Active 8 0600943 Problem Lumbago with sciatica, left side M54.42 Active 643675165 Problem Lumbago with sciatica, right side M54.41 Active [id number] ALLERGIES No Information ENCOUNTERS Encounter Location Date Diagnosis [facility] [address] [facility] [id number] [address] [place] [phone] Jan, [facility] [address] [facility] [id number] [address] [place] [phone] Dec, [facility] [address] [facility] [id number] [address] [place] [phone] Dec, Bipolar 2 disorder F31.81 [facility] [address] [facility] [id number] [address] [place] [phone] Oct, Bipolar 2 disorder F31.81 [facility] [address] [facility] [id number] [address] [place] [phone] Oct, Bipolar 2 disorder F31.81 ; Attention deficit disorder F90.0 ; Social anxiety disorder F40.10 and Chronic post-traumatic stress disorder (PTSD) F43.12 [facility] [address] [place] [id number] [place] [address] Aug, Lumbago with sciatica, left side M54.42 and Lumbago with sciatica, right side M54.41 [facility] [address] [address] Aug, Bipolar 2 disorder F31.81 [facility] [address] [place] [id number] [place] [phone] Aug, Bipolar 2 disorder F31.81 [place] [address] [address] Aug, Bipolar 2 disorder F31.81 ; Attention deficit disorder F90.0 ; Social anxiety disorder F40.10 and PTSD (post-traumatic stress disorder) F43.10 [facility] [address] [address] Jul, [facility] [address] [place] [id number] [place] [address] Jun, Nasal congestion R09.81 ; Ac ping nonintractable headache, unspecified headache type R51 and Viral upper respiratory tract infection J06.9 [place] [address] [address] Jun, [facility] [address] [address] May, [place] [address] [address] May, [place] [address] [address] May, Bipolar 2 disorder F31.81 ; Social anxiety disorder F40.10 ; Chronic post-traumatic stress disorder (PTSD) F43.12 ; Attention deficit disorder F90.0 and Encounter for immunization Z23 [facility] [address] [facility] [id number] [address] [place] [phone] Apr, [facility] [address] [place] [id number] [place] [address] Apr, Body aches R52 and Acute chely opharyngitis J00 [facility] [address] [place] [id number] [place] [address] 24 Mar, 2018 Pure hypercholesterolemia E7 8.00 and Exertional chest pain R07.9 [facility] [address] [facility] [id number] [place] [address] Mar, Hyperlipidemia E78.5 ; Hyper tension I10 and Routine adult health maintenance Z00.00 [facility] [address] [place] [id number] [place] [address] 20 Mar, 2018 Hypertension I10 ; Hyperlipi demia E78.5 ; Chest pain, exertional R07.9 and Routine adult health maintenance Z00.00 [facility] [address] [address] 17 Mar, 2018 [place] [address] [address] Mar, Lumbago with sciatica, left side M54.42 and Lumbago with sciatica, right side M54.41 [place] [address] [address] Jan, [facility] [address] [address] Dec, Bipolar 2 disorder F31.81 ; Social anxiety disorder F40.10 and Chronic post-traumatic stress disorder (PTSD) F43.12 [place] [address] [place] [id number] [place] [address] Dec, [facility] [address] [place] [id number] [place] [address] Dec, [facility] [address] [place] [id number] [place] [address] Dec, Upper respiratory tract infe ction, unspecified type J06.9 [facility] [address] [id number] [address] [place] [phone] October, [facility] [address] [id number] [address] [place] [address] Oct, Bipolar 2 disorder F31.81 ; Attention deficit disorder F90.0 ; Social anxiety disorder F40.10 and Chronic post-traumatic stress disorder (PTSD) F43.12 [facility] [address] [id number] [address] [place] [phone] Oct, [facility] [address] [id number] [address] [place] [phone] Oct, [facility] [address] [id number] [address] [place] [phone] Aug, [facility] [address] [id number] [address] [place] [address] Aug, [facility] [address] [id number] [address] [place] [address] Jul, Strain of lumbar region, ini tial encounter S39.012A [facility] [address] [id number] [address] [place] [phone] Jul, Lumbago with sciatica, left side M54.42 and Lumbago with sciatica, right side M54.41 [facility] [address] [id number] [address] [place] [phone] Jul, Low back pain M54.5 and Othe r chronic pain G89.29 [facility] [address] [id number] [address] [place] [phone] Jul, [facility] [address] [facility] [id number] [address] [place] [phone] Jul, Bipolar 2 disorder F31.81 ; Attention deficit disorder F90.0 and Social anxiety disorder F40.10 [facility] [address] [facility] [id number] [address] [place] [phone] Jun, [facility] [address] [facility] [id number] [address] [place] [phone] May, [facility] [address] [facility] [id number] [address] [place] [phone] Apr, Bipolar 2 disorder F31.81 ; Attention deficit disorder F90.0 ; Social anxiety disorder F40.10 and Chronic post-traumatic stress disorder (PTSD) F43.12 [facility] [address] [facility] [id number] [address] [place] [phone] Apr, [facility] [address] [facility] [id number] [address] [place] [address] Apr, Hyperlipidemia E78.5 [facility] [address] [facility] [id number] [address] [place] [phone] Mar, Encounter for immunization Z 23 and Tinea cruris B35.6 [facility] [address] [facility] [id number] [address] [place] [phone] Mar, [facility] [address] [facility] [id number] [address] [place] [phone] Jan, [facility] [address] [facility] [id number] [address] [place] [phone] Dec, [facility] [address] [facility] [id number] [address] [place] [phone] Dec, [facility] [address] [facility] [id number] [address] [place] [address] Dec, Bipolar 2 disorder F31.81 ; Social anxiety disorder F40.10 and Attention deficit disorder F90.0 [facility] [address] [facility] [id number] [address] [place] [phone] Dec, [facility] [address] [facility] [id number] [address] [place] [phone] Dec, Hypertension I10 [facility] [address] [id number] [address] [place] [phone] October, [facility] [address] [id number] [address] [place] [phone] Oct, [facility] [address] [facility] [id number] [address] [place] [address] Oct, Nasal congestion R09.81 [facility] [address] [id number] [address] [place] [phone] Oct, Social anxiety disorder F40. 10 ; Bipolar 2 disorder F31.81 and Attention deficit disorder F90.0 [facility] [address] [facility] [id number] [address] [place] [phone] Aug, [facility] [address] [facility] [id number] [address] [place] [phone] Aug, [facility] [address] [facility] [id number] [address] [place] [phone] Jul, Nasal congestion R09.81 [facility] [address] [facility] [id number] [address] [place] [phone] Jul, [facility] [address] [facility] [id number] [address] [place] [phone] Jun, Bipolar 2 disorder F31.81 ; Attention deficit disorder F90.0 ; Social anxiety disorder F40.10 and Chronic post-traumatic stress disorder (PTSD) F43.12 [facility] [address] [id number] [address] [place] [phone] Jun, [facility] [address] [facility] [id number] [address] [place] [phone] May, [facility] [address] [facility] [id number] [address] [place] [phone] 14 Apr, 2016 Attention deficit disorder F 90.0 [facility] [address] [facility] [id number] [address] [place] [phone] Apr, Urinary hesitancy R39.11 ; H yperlipidemia E78.5 and Encounter for immunization Z23 [facility] [address] [facility] [id number] [address] [place] [phone] Apr, [facility] [address] [facility] [id number] [address] [place] [phone] Mar, [facility] [address] [facility] [id number] [address] [place] [phone] Jan, [facility] [address] [facility] [id number] [address] [place] [phone] Dec, [facility] [address] [facility] [id number] [address] [place] [phone] Dec, [facility] [address] [facility] [id number] [address] [place] [address] Dec, Bipolar 2 disorder F31.81 ; Attention deficit disorder F90.0 ; Posttraumatic stress disorder F43.10 and Social anxiety disorder F40.10 [facility] [address] [facility] [id number] [address] [place] [phone] Dec, Scabies exposure Z20.89 and Scabies B86 [facility] [address] [facility] [id number] [address] [place] [phone] Dec, [facility] [address] [facility] [id number] [address] [place] [phone] Dec, Hypertension I10 and Gastroe sophageal reflux disease without esophagitis K21.9 [facility] [address] [facility] [id number] [address] [place] [phone] October, [facility] [address] [facility] [id number] [address] [place] [phone] October, [facility] [address] [facility] [id number] [address] [place] [phone] Oct, Bipolar 2 disorder F31.81 ; Posttraumatic stress disorder F43.10 ; Attention deficit disorder F90.0 and Social anxiety disorder F40.10 [facility] [address] [facility] [id number] [address] [place] [phone] Oct, [facility] [address] [place] [id number] [place] [address] Oct, Hypertension I10 and Nasal c ongestion R09.81 [facility] [address] [facility] [id number] [address] [place] [phone] Aug, [facility] [address] [facility] [id number] [place] [phone] Aug, [facility] [address] [address] Aug, [facility] [address] [place] [id number] [place] [address] Aug, [facility] [address] [address] Aug, [facility] [address] [place] [id number] [place] [address] Aug, Hypertension I10 and Tremor R25.1 [facility] [address] [place] [id number] [place] [address] Aug, Bipolar 2 disorder F31.81 ; Posttraumatic stress disorder F43.10 ; Attention deficit disorder F90.0 and Social anxiety disorder F40.10 [facility] [address] [place] [id number] [address] [place] [phone] Jul, [facility] [address] [place] [id number] [address] [place] [phone] Jul, Hyperlipidemia E78.5 [place] [address] [place] [id number] [place] [address] Jul, Hypertension I10 and Hyperli pidemia E78.5 [facility] [address] [place] [id number] [place] [phone] Jun, Bipolar 2 disorder F31.81 ; Posttraumatic stress disorder F43.10 ; Attention deficit disorder F90.0 and Social anxiety disorder F40.10 [facility] [address] [id number] [address] [place] [phone] May, [facility] [address] [facility] [id number] [address] [place] [phone] May, [facility] [address] [facility] [id number] [address] [place] [address] Apr, Bipolar 2 disorder F31.81 ; Posttraumatic stress disorder F43.10 ; Attention deficit disorder F90.0 and Social phobia F40.10 [facility] [address] [facility] [id number] [address] [place] [address] Apr, Bipolar 2 disorder F31.81 ; Posttraumatic stress disorder F43.10 and Attention deficit disorder F90.0 [facility] [address] [facility] [id number] [address] [place] [phone] Apr, [facility] [address] [id number] [address] [place] [phone] Apr, [facility] [address] [facility] [id number] [address] [place] [phone] Apr, [facility] [address] [facility] [id number] [address] [place] [phone] Mar, [facility] [address] [facility] [id number] [address] [place] [phone] Mar, [facility] [address] [id number] [address] [place] [phone] Jan, [facility] [address] [facility] [id number] [address] [place] [phone] Jan, [facility] [address] [facility] [id number] [address] [place] [phone] Jan, Bipolar II disorder 296.89 ; Posttraumatic stress disorder 309.81 ; Social phobia 300.23 and Attention deficit disorder of childhood without mention of hyperactivity 314.00 [facility] [address] [facility] [id number] [address] [place] [address] Jan, Other and unspecified bipola r disorders 296.89 ; Posttraumatic stress disorder 309.81 and Attention deficit disorder of childhood without mention of hyperactivity 314.00 [facility] [address] [facility] [id number] [address] [place] [phone] Jan, [facility] [address] [facility] [id number] [address] [place] [address] Dec, Other and unspecified bipola r disorders 296.89 ; Posttraumatic stress disorder 309.81 and Attention deficit disorder of childhood without mention of hyperactivity 314.00 [facility] [address] [facility] [id number] [address] [place] [address] Dec, Migraines 346.90 [facility] [address] [facility] [id number] [address] [place] [address] Dec, Other and unspecified bipola r disorders 296.89 ; Posttraumatic stress disorder 309.81 and Attention deficit disorder of childhood without mention of hyperactivity 314.00 [facility] [address] [facility] [id number] [address] [place] [phone] Dec, [facility] [address] [facility] [id number] [address] [place] [phone] Dec, Bipolar II disorder 296.89 ; Social phobia 300.23 ; Posttraumatic stress disorder 309.81 and Attention deficit disorder of childhood without mention of hyperactivity 314.00 [facility] [address] [facility] [id number] [address] [place] [address] Dec, Other and unspecified bipola r disorders 296.89 ; Posttraumatic stress disorder 309.81 and Attention deficit disorder of childhood without mention of hyperactivity 314.00 [facility] [address] [facility] [id number] [address] [place] [address] October, Other and unspecified bipola r disorders 296.89 ; Posttraumatic stress disorder 309.81 and Attention deficit disorder of childhood without mention of hyperactivity 314.00 [facility] [address] [facility] [id number] [address] [place] [phone] October, [facility] [address] [id number] [address] [place] [phone] October, [facility] [address] [id number] [address] [place] [phone] October, [facility] [address] [id number] [address] [place] [phone] October, [facility] [address] [facility] [id number] [address] [place] [phone] October, Attention deficit disorder o f childhood without mention of hyperactivity 314.00 ; Posttraumatic stress disorder 309.81 ; Social phobia 300.23 and Other and unspecified bipolar disorders 296.89 [facility] [address] [id number] [address] [place] [phone] Oct, [facility] [address] [facility] [id number] [address] [place] [phone] Oct, [facility] [address] [id number] [address] [place] [phone] Aug, [facility] [address] [id number] [address] [place] [phone] Aug, [facility] [address] [id number] [address] [place] [phone] Aug, [facility] [address] [id number] [address] [place] [phone] Aug, [facility] [address] [id number] [address] [place] [phone] Aug, [facility] [address] [id number] [address] [place] [phone] Aug, [facility] [address] [id number] [address] [place] [phone] Aug, [facility] [address] [id number] [address] [place] [phone] Aug, [facility] [address] [id number] [facility] [place] [address] 17 Aug, 2014 [facility] [address] [id number] [facility] [place] [address] 17 Aug, 2014 [facility] [address] [id number] [facility] [place] [address] 13 Aug, 2014 [facility] [address] [id number] [facility] [place] [address] 13 Aug, 2014 [facility] [address] [id number] [facility] [place] [address] 12 Aug, 2014 [facility] [address] [id number] [address] [place] [address], [place] [address] 12 Aug, 2014 [facility] [address] [id number] [address] [place] [address], [place] [address] 12 Aug, 2014 [facility] [address] [id number] [address] [place] [address], [place] [address] 12 Aug, 2014 [facility] [address] [id number] [address] [place] [address], [place] [address] Aug, [facility] [address] [id number] [address] [place] [address], [place] [address] 12 Aug, 2014 [facility] [address] [id number] [address] [place] [address], [place] [address] Aug, [facility] [address] [id number] [address] [place] [address], [place] [address] Aug, [facility] [address] [id number] [address] [place] [address], [place] [address] 04 Aug, 2014 [facility] [address] [id number] [address] [place] [address], [place] [address] 04 Aug, 2014 [facility] [address] [id number] [address] [place] [address], [place] [address] 03 Aug, 2014 [facility] [address] [id number] [address] [place] [address], [place] [address] Aug, [facility] [address] [id number] [address] [place] [address], [place] [address] Aug, [facility] [address] [id number] [address] [place] [address], [place] [address] Aug, [facility] [address] [id number] [address] [place] [address], [place] [address] Aug, [facility] [address] [id number] [address] [place] [address], [place] [address] Aug, [facility] [address] [id number] [address] [place] [address], [place] [address] Aug, [facility] [address] [id number] [address] [place] [address], [place] [address] Aug, [facility] [address] [id number] [address] [place] [address], [place] [address] Jul, [facility] [address] [id number] [address] [place] [address], [place] [address] Jul, [facility] [address] [id number] [address] [place] [address], [place] [address] Jul, [facility] [address] [id number] [address] [place] [address], [place] [address] Jul, [facility] [address] [id number] [address] [place] [address], [place] [id number] Jul, [facility] [address] [id number] [address] [place] [id number] Jul, [facility] [address] [id number] [address] [place] [address], [place] [id number] Jul, [facility] [address] [id number] [address] [place] [address], [place] [id number] Jul, [facility] [address] [id number] [address] [place] [address], [place] [address] Jun, [facility] [address] [id number] [address] [place] [id number] Jun, [facility] [address] [id number] [address] [place] [id number] Jun, [facility] [address] [id number] [address] [place] [id number] Jun, [facility] [address] [id number] [address] [place] [id number] May, [facility] [address] [id number] [address] [place] [id number] May, [facility] [address] [id number] [address] [place] [id number] May, [facility] [address] [id number] [address] [place] [phone] May, [facility] [address] [id number] [address] [place] [id number] May, [facility] [address] [id number] [address] [place] [id number] Apr, [facility] [address] [id number] [address] [place] [id number] Apr, IMMUNIZATIONS No Known Immunizations SOCIAL HISTORY [...]
--- OUTSIDE RECORDS SUMMARY | 2019-11-11 19:09 | XMS REPORT ---
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 12 Active 286015410 Problem Other chronic pain G89.29 Active 8 8883915 Problem Lumbago with sciatica, left side M54.42 Active 476614120 Problem Lumbago with sciatica, right side M54.41 Active [id number] ALLERGIES No Information ENCOUNTERS Encounter Location Date Diagnosis [facility] [address] [facility] [id number] [address] [place] [phone] Jan, [facility] [address] [facility] [id number] [address] [place] [phone] Dec, [facility] [address] [facility] [id number] [address] [place] [phone] Dec, Bipolar 2 disorder F31.81 [facility] [address] [facility] [id number] [address] [place] [phone] Dec, [facility] [address] [facility] [id number] [address] [place] [phone] Dec, Bipolar 2 disorder F31.81 [facility] [address] [place] [id number] [address] [place] [phone] Oct, Bipolar 2 disorder F31.81 [facility] [address] [place] [id number] [place] [phone] Oct, Bipolar 2 disorder F31.81 ; Attention deficit disorder F90.0 ; Social anxiety disorder F40.10 and Chronic post-traumatic stress disorder (PTSD) F43.12 [facility] [address] [place] [id number] [address] [place] [phone] Aug, Lumbago with sciatica, left side M54.42 and Lumbago with sciatica, right side M54.41 [facility] [address] [place] [id number] [place] [phone] Aug, Bipolar 2 disorder F31.81 [facility] [address] [place] [id number] [place] [address] Aug, Bipolar 2 disorder F31.81 [facility] [address] [place] [id number] [place] [address] Aug, Bipolar 2 disorder F31.81 ; Attention deficit disorder F90.0 ; Social anxiety disorder F40.10 and PTSD (post-traumatic stress disorder) F43.10 [facility] [address] [place] [id number] [address] [place] [phone] Jul, [facility] [address] [place] [id number] [address] [place] [phone] Jun, Nasal congestion R09.81 ; Ac levelock nonintractable headache, unspecified headache type R51 and Viral upper respiratory tract infection J06.9 [facility] [address] [place] [id number] [address] [place] [phone] Jun, [facility] [address] [id number] [place] [phone] May, [facility] [address] [place] [id number] [address] [place] [phone] May, [place] [address] [place] [id number] [place] [address] May, Bipolar 2 disorder F31.81 ; Social anxiety disorder F40.10 ; Chronic post-traumatic stress disorder (PTSD) F43.12 ; Attention deficit disorder F90.0 and Encounter for immunization Z23 [facility] [address] [address] Apr, [facility] [address] [place] [id number] [place] [address] Apr, Body aches R52 and Acute chely opharyngitis J00 [place] [address] [address] 24 Mar, 2018 Pure hypercholesterolemia E7 8.00 and Exertional chest pain R07.9 [place] [address] [address] Mar, Hyperlipidemia E78.5 ; Hyper tension I10 and Routine adult health maintenance Z00.00 [place] [address] [address] 20 Mar, 2018 Hypertension I10 ; Hyperlipi demia E78.5 ; Chest pain, exertional R07.9 and Routine adult health maintenance Z00.00 [place] [address] [place] [id number] [address] [place] [phone] 17 Mar, 2018 [place] [address] [address] Mar, Lumbago with sciatica, left side M54.42 and Lumbago with sciatica, right side M54.41 [place] [address] [address] Jan, [place] [address] [place] [id number] [place] [address] Dec, Bipolar 2 disorder F31.81 ; Social anxiety disorder F40.10 and Chronic post-traumatic stress disorder (PTSD) F43.12 [place] [address] [id number] [address] [place] [phone] Dec, [facility] [address] [facility] [id number] [address] [place] [phone] Dec, [facility] [address] [facility] [id number] [address] [place] [phone] Dec, Upper respiratory tract infe ction, unspecified type J06.9 [facility] [address] [id number] [address] [place] [phone] October, [facility] [address] [id number] [address] [place] [address] Oct, Bipolar 2 disorder F31.81 ; Attention deficit disorder F90.0 ; Social anxiety disorder F40.10 and Chronic post-traumatic stress disorder (PTSD) F43.12 [place] [address] [facility] [id number] [address] [place] [phone] Oct, [facility] [address] [facility] [id number] [address] [place] [phone] Oct, [place] [address] [facility] [id number] [address] [place] [phone] Aug, [facility] [address] [facility] [id number] [address] [place] [phone] Aug, [facility] [address] [facility] [id number] [address] [place] [phone] Jul, Strain of lumbar region, ini tial encounter S39.012A [facility] [address] [id number] [address] [place] [phone] Jul, Lumbago with sciatica, left side M54.42 and Lumbago with sciatica, right side M54.41 [facility] [address] [facility] [id number] [address] [place] [phone] Jul, Low back pain M54.5 and Othe r chronic pain G89.29 [facility] [address] [place] [id number] [address] [place] [phone] Jul, [facility] [address] [place] [id number] [place] [address] Jul, Bipolar 2 disorder F31.81 ; Attention deficit disorder F90.0 and Social anxiety disorder F40.10 [facility] [address] [place] [id number] [place] [phone] Jun, [facility] [address] [place] [id number] [place] [phone] May, [facility] [address] [place] [id number] [place] [address] Apr, Bipolar 2 disorder F31.81 ; Attention deficit disorder F90.0 ; Social anxiety disorder F40.10 and Chronic post-traumatic stress disorder (PTSD) F43.12 [place] [address] [address] Apr, [facility] [address] [address] Apr, Hyperlipidemia E78.5 [facility] [address] [place] [id number] [place] [address] Mar, Encounter for immunization Z 23 and Tinea cruris B35.6 [facility] [id number] [place] [phone] Mar, [facility] [address] [place] [id number] [place] [phone] Jan, [facility] [address] [place] [id number] [address] [place] [phone] Dec, [facility] [address] [place] [id number] [place] [phone] Dec, [facility] [address] [place] [id number] [place] [phone] Dec, Bipolar 2 disorder F31.81 ; Social anxiety disorder F40.10 and Attention deficit disorder F90.0 [facility] [address] [id number] [address] [place] [phone] Dec, [facility] [address] [id number] [address] [place] [phone] Dec, Hypertension I10 [facility] [address] [id number] [address] [place] [phone] October, [facility] [address] [id number] [address] [place] [phone] Oct, [facility] [address] [id number] [address] [place] [phone] Oct, Nasal congestion R09.81 [facility] [address] [facility] [id number] [address] [place] [phone] Oct, Social anxiety disorder F40. 10 ; Bipolar 2 disorder F31.81 and Attention deficit disorder F90.0 [facility] [address] [id number] [address] [place] [phone] Aug, [facility] [address] [facility] [id number] [address] [place] [phone] Aug, [facility] [address] [facility] [id number] [address] [place] [phone] Jul, Nasal congestion R09.81 [facility] [address] [facility] [id number] [address] [place] [phone] Jul, [facility] [address] [facility] [id number] [address] [place] [phone] Jun, Bipolar 2 disorder F31.81 ; Attention deficit disorder F90.0 ; Social anxiety disorder F40.10 and Chronic post-traumatic stress disorder (PTSD) F43.12 [facility] [address] [id number] [address] [place] [phone] Jun, [facility] [address] [facility] [id number] [address] [place] [phone] May, [facility] [address] [facility] [id number] [address] [place] [phone] Apr, Attention deficit disorder F 90.0 [facility] [address] [place] [id number] [place] [phone] Apr, Urinary hesitancy R39.11 ; H yperlipidemia E78.5 and Encounter for immunization Z23 [facility] [address] [facility] [id number] [address] [place] [phone] Apr, [facility] [address] [place] [id number] [place] [phone] Mar, [facility] [address] [place] [id number] [place] [phone] Jan, [facility] [address] [place] [id number] [place] [phone] Dec, [facility] [address] [place] [id number] [place] [phone] Dec, [facility] [address] [place] [id number] [place] [phone] Dec, Bipolar 2 disorder F31.81 ; Attention deficit disorder F90.0 ; Posttraumatic stress disorder F43.10 and Social anxiety disorder F40.10 [facility] [address] [facility] [id number] [address] [place] [phone] Dec, Scabies exposure Z20.89 and Scabies B86 [facility] [address] [facility] [id number] [address] [place] [phone] Dec, [facility] [address] [place] [id number] [place] [phone] Dec, Hypertension I10 and Gastroe sophageal reflux disease without esophagitis K21.9 [facility] [address] [place] [id number] [place] [phone] October, [facility] [address] [place] [id number] [place] [phone] October, [facility] [address] [facility] [id number] [address] [place] [phone] Oct, Bipolar 2 disorder F31.81 ; Posttraumatic stress disorder F43.10 ; Attention deficit disorder F90.0 and Social anxiety disorder F40.10 [facility] [address] [place] [id number] [place] [phone] Oct, [facility] [address] [place] [id number] [place] [phone] Oct, Hypertension I10 and Nasal c ongestion R09.81 [facility] [address] [facility] [id number] [place] [phone] Aug, [facility] [address] [place] [id number] [place] [phone] Aug, [facility] [address] [address] Aug, [facility] [address] [place] [id number] [place] [phone] Aug, [facility] [address] [address] Aug, [facility] [address] [address] Aug, Hypertension I10 and Tremor R25.1 [facility] [address] [place] [id number] [place] [phone] Aug, Bipolar 2 disorder F31.81 ; Posttraumatic stress disorder F43.10 ; Attention deficit disorder F90.0 and Social anxiety disorder F40.10 [facility] [address] [place] [id number] [place] [phone] Jul, [facility] [address] [address] Jul, Hyperlipidemia E78.5 [facility] [address] [place] [id number] [place] [phone] Jul, Hypertension I10 and Hyperli pidemia E78.5 [facility] [address] [place] [id number] [place] [address] Jun, Bipolar 2 disorder F31.81 ; Posttraumatic stress disorder F43.10 ; Attention deficit disorder F90.0 and Social anxiety disorder F40.10 [facility] [address] [address] May, [facility] [address] [place] [id number] [place] [phone] May, [facility] [address] [place] [id number] [place] [address] Apr, Bipolar 2 disorder F31.81 ; Posttraumatic stress disorder F43.10 ; Attention deficit disorder F90.0 and Social phobia F40.10 [facility] [address] [address] Apr, Bipolar 2 disorder F31.81 ; Posttraumatic stress disorder F43.10 and Attention deficit disorder F90.0 [facility] [address] [address] Apr, [facility] [address] [place] [id number] [place] [phone] Apr, [facility] [address] [place] [id number] [address] [place] [phone] Apr, [facility] [address] [place] [id number] [place] [phone] Mar, [facility] [address] [address] Mar, [facility] [address] [place] [id number] [place] [phone] Jan, [facility] [address] [place] [id number] [place] [phone] Jan, [facility] [address] [facility] [id number] [address] [place] [address] Jan, Bipolar II disorder 296.89 ; Posttraumatic stress disorder 309.81 ; Social phobia 300.23 and Attention deficit disorder of childhood without mention of hyperactivity 314.00 [facility] [address] [facility] [id number] [address] [place] [address] Jan, Other and unspecified bipola r disorders 296.89 ; Posttraumatic stress disorder 309.81 and Attention deficit disorder of childhood without mention of hyperactivity 314.00 [facility] [address] [facility] [id number] [address] [place] [phone] Jan, [facility] [address] [facility] [id number] [address] [place] [address] Dec, Other and unspecified bipola r disorders 296.89 ; Posttraumatic stress disorder 309.81 and Attention deficit disorder of childhood without mention of hyperactivity 314.00 [facility] [address] [facility] [id number] [address] [place] [phone] Dec, Migraines 346.90 [facility] [address] [facility] [id number] [address] [place] [phone] Dec, Other and unspecified bipola r disorders 296.89 ; Posttraumatic stress disorder 309.81 and Attention deficit disorder of childhood without mention of hyperactivity 314.00 [facility] [address] [facility] [id number] [address] [place] [phone] Dec, [facility] [address] [facility] [id number] [address] [place] [phone] Dec, Bipolar II disorder 296.89 ; Social phobia 300.23 ; Posttraumatic stress disorder 309.81 and Attention deficit disorder of childhood without mention of hyperactivity 314.00 [facility] [address] [facility] [id number] [address] [place] [phone] Dec, Other and unspecified bipola r disorders 296.89 ; Posttraumatic stress disorder 309.81 and Attention deficit disorder of childhood without mention of hyperactivity 314.00 [facility] [address] [facility] [id number] [address] [place] [address] October, Other and unspecified bipola r disorders 296.89 ; Posttraumatic stress disorder 309.81 and Attention deficit disorder of childhood without mention of hyperactivity 314.00 [facility] [address] [id number] [address] [place] [phone] October, [facility] [address] [id number] [address] [place] [phone] October, [facility] [address] [id number] [address] [place] [phone] October, [facility] [address] [id number] [address] [place] [phone] October, [facility] [address] [id number] [address] [place] [phone] October, Attention deficit disorder o f childhood without mention of hyperactivity 314.00 ; Posttraumatic stress disorder 309.81 ; Social phobia 300.23 and Other and unspecified bipolar disorders 296.89 [facility] [address] [id number] [address] [place] [phone] Oct, [facility] [address] [id number] [address] [place] [phone] Oct, [facility] [address] [facility] [id number] [address] [place] [phone] Aug, [facility] [address] [id number] [address] [place] [phone] Aug, [facility] [address] [id number] [address] [place] [phone] Aug, [facility] [address] [id number] [address] [place] [phone] Aug, [facility] [address] [facility] [id number] [address] [place] [phone] Aug, [facility] [address] [id number] [address] [place] [phone] Aug, [facility] [address] [id number] [facility] [place] [address] 17 Aug, 2014 [facility] [address] [id number] [facility] [place] [address] 17 Aug, 2014 [facility] [address] [id number] [facility] [place] [address] 17 Aug, 2014 [facility] [address] [id number] [address] [place] [address], [place] [address] 17 Aug, 2014 [facility] [address] [id number] [address] [place] [address], [place] [address] 13 Aug, 2014 [facility] [address] [id number] [address] [place] [address], [place] [address] 13 Aug, 2014 [facility] [address] [id number] [address] [place] [address], [place] [address] 12 Aug, 2014 [facility] [address] [id number] [address] [place] [address], [place] [address] 12 Aug, 2014 [facility] [address] [id number] [address] [place] [address], [place] [address] Aug, [facility] [address] [id number] [address] [place] [address], [place] [address] Aug, [facility] [address] [id number] [address] [place] [address], [place] [address] Aug, [facility] [address] [id number] [address] [place] [address], [place] [address] Aug, [facility] [address] [id number] [address] [place] [address], [place] [address] Aug, [facility] [address] [id number] [address] [place] [address], [place] [address] Aug, [facility] [address] [id number] [address] [place] [address], [place] [address] 04 Aug, 2014 [facility] [address] [id number] [address] [place] [address], [place] [address] Aug, [facility] [address] [id number] [address] [place] [address], [place] [address] Aug, [facility] [address] [id number] [address] [place] [address], [place] [address] Aug, [facility] [address] [id number] [address] [place] [address], [place] [address] Aug, [facility] [address] [id number] [address] [place] [address], [place] [address] Aug, [facility] [address] [id number] [address] [place] [address], [place] [address] Aug, [facility] [address] [id number] [address] [place] [address], [place] [address] Aug, [facility] [address] [id number] [address] [place] [address], [place] [address] Aug, [facility] [address] [id number] [address] [place] [address], [place] [address] Aug, [facility] [address] [id number] [address] [place] [address], [place] [address] Jul, [facility] [address] [id number] [address] [place] [address], [place] [address] Jul, [facility] [address] [id number] [address] [place] [address], [place] [id number] Jul, [facility] [address] [id number] [address] [place] [address], [place] [id number] Jul, [facility] [address] [id number] [address] [place] [address], [place] [id number] Jul, [facility] [address] [id number] [address] [place] [address], [place] [phone] Jul, [facility] [address] [id number] [address] [place] [address], [place] [id number] Jul, [facility] [address] [id number] [address] [place] [id number] Jul, [facility] [address] [id number] [address] [place] [id number] Jun, [facility] [address] [id number] [address] [place] [id number] Jun, [facility] [address] [id number] [address] [place] [id number] Jun, [facility] [address] [id number] [address] [place] [phone] Jun, [facility] [address] [id number] [address] [place] [phone] May, [facility] [address] [id number] [address] [place] [phone] May, [facility] [address] [id number] [address] [place] [phone] May, [facility] [address] [id number] [address] [place] [phone] May, [facility] [address] [id number] [address] [place] [phone] May, [facility] [address] [id number] [address] [place] [phone] Apr, [facility] [address] [id number] [address] [place] [phone] Apr, IMMUNIZATIONS No Known Immunizations SOCIAL HISTORY Never Assessed REASON FOR VISIT PLAN OF CARE VITAL SIGNS Height 64.5 in 2014-09-11 Weight 160.38 lbs 2014-09-11 Temperature 98.4 degrees Fahrenheit 2014-09-11 Heart Rate 98 bpm 2014-09-11 Respiratory Rate 24 2014-09-11 Blood pressure systolic 134 mmHg 2014-09-11 Blood pressure diastolic 102 mmHg 2014-09-11 MEDICATIONS Unknown Medications RESULTS No Results PROCEDURES Procedure Date Ordered Result Body Site PSYTX PT&/FAMILY 45 MINUTES September 11, 2014 ASSAY THYROID STIM HORMONE September 11, 2014 VENIPUNCT, ROUTINE* September 11, 2014 INSTRUCTIONS MEDICATIONS ADMINISTERED No Known [...]
--- OUTSIDE RECORDS SUMMARY | 2019-11-11 19:09 | XMS REPORT ---
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 12 Active 290094275 Problem Other chronic pain G89.29 Active 8 7761089 Problem Lumbago with sciatica, left side M54.42 Active 405779710 Problem Lumbago with sciatica, right side M54.41 Active [id number] ALLERGIES No Information ENCOUNTERS Encounter Location Date Diagnosis [facility] [place] [address] [facility] [id number] [address] [place] [phone] Jan, [facility], [place] [address] [facility] [id number] [address] [place] [phone] Dec, [facility] [place] [address] [facility] [id number] [address] [place] [address] Dec, Bipolar 2 disorder F31.81 [facility] [place] [address] [facility] [id number] [address] [place] [address] Oct, Bipolar 2 disorder F31.81 [facility] [place] [address] [facility] [id number] [address] [place] [address] Oct, Bipolar 2 disorder F31.81 ; Attention deficit disorder F90.0 ; Social anxiety disorder F40.10 and Chronic post-traumatic stress disorder (PTSD) F43.12 [facility] [address] [place] [id number] [place] [address] Aug, Lumbago with sciatica, left side M54.42 and Lumbago with sciatica, right side M54.41 [facility] [place] [address] [address] Aug, Bipolar 2 disorder F31.81 [facility] [place] [address] [place] [id number] [place] [address] Aug, Bipolar 2 disorder F31.81 [place] [address] [address] Aug, Bipolar 2 disorder F31.81 ; Attention deficit disorder F90.0 ; Social anxiety disorder F40.10 and PTSD (post-traumatic stress disorder) F43.10 [facility] [place] [address] [address] Jul, [facility] [address] [id number] [place] [address] Jun, Nasal congestion R09.81 ; Ac ping nonintractable headache, unspecified headache type R51 and Viral upper respiratory tract infection J06.9 [place] [address] [address] Jun, [facility] [place] [address] [address] May, [place] [address] [address] May, [place] [address] [address] May, Bipolar 2 disorder F31.81 ; Social anxiety disorder F40.10 ; Chronic post-traumatic stress disorder (PTSD) F43.12 ; Attention deficit disorder F90.0 and Encounter for immunization Z23 [facility] [place] [address] [facility] [id number] [address] [place] [address] Apr, [facility] [address] [id number] [place] [address] Apr, Body aches R52 and Acute chely opharyngitis J00 [facility] [place] [address] [id number] [place] [address] 24 Mar, 2018 Pure hypercholesterolemia E7 8.00 and Exertional chest pain R07.9 [facility] [place] [address] [facility] [id number] [place] [id number] Mar, Hyperlipidemia E78.5 ; Hyper tension I10 and Routine adult health maintenance Z00.00 [facility] [place] [address] [place] [id number] [place] [address] 20 Mar, 2018 Hypertension I10 ; Hyperlipi demia E78.5 ; Chest pain, exertional R07.9 and Routine adult health maintenance Z00.00 [facility] [place] [address] [address] 17 Mar, 2018 [place] [address] [address] Mar, Lumbago with sciatica, left side M54.42 and Lumbago with sciatica, right side M54.41 [place] [address] [address] Jan, [facility] [place] [address] [address] Dec, Bipolar 2 disorder F31.81 ; Social anxiety disorder F40.10 and Chronic post-traumatic stress disorder (PTSD) F43.12 [place] [address] [place] [id number] [place] [address] Dec, [facility] [place] [address] [id number] [place] [address] Dec, [facility] [address] [place] [id number] [place] [address] Dec, Upper respiratory tract infe ction, unspecified type J06.9 [facility], [place] [address] [id number] [address] [place] [phone] October, [facility] [place] [address] [id number] [address] [place] [address] Oct, Bipolar 2 disorder F31.81 ; Attention deficit disorder F90.0 ; Social anxiety disorder F40.10 and Chronic post-traumatic stress disorder (PTSD) F43.12 [facility] [place] [address] [id number] [address] [place] [address] Oct, [facility] [place] [address] [id number] [address] [place] [address] Oct, [facility] [place] [address] [id number] [address] [place] [address] Aug, [facility] [place] [address] [id number] [address] [place] [address] Aug, [facility] [place] [address] [id number] [address] [place] [address] Jul, Strain of lumbar region, ini tial encounter S39.012A [facility] [address] [id number] [address] [place] [address] Jul, Lumbago with sciatica, left side M54.42 and Lumbago with sciatica, right side M54.41 [facility] [address] [id number] [address] [place] [address] Jul, Low back pain M54.5 and Othe r chronic pain G89.29 [facility] [place] [address] [id number] [address] [place] [address] Jul, [facility] [place] [address] [facility] [id number] [address] [place] [address] Jul, Bipolar 2 disorder F31.81 ; Attention deficit disorder F90.0 and Social anxiety disorder F40.10 [facility] [place] [address] [facility] [id number] [address] [place] [address] Jun, [facility] [place] [address] [facility] [id number] [address] [place] [address] May, [facility] [place] [address] [facility] [id number] [address] [place] [address] Apr, Bipolar 2 disorder F31.81 ; Attention deficit disorder F90.0 ; Social anxiety disorder F40.10 and Chronic post-traumatic stress disorder (PTSD) F43.12 [facility] [place] [address] [facility] [id number] [address] [place] [address] Apr, [facility] [place] [address] [facility] [id number] [address] [place] [address] Apr, Hyperlipidemia E78.5 [facility] [address] [facility] [id number] [address] [place] [address] Mar, Encounter for immunization Z 23 and Tinea cruris B35.6 [facility] [place] [address] [facility] [id number] [address] [place] [phone] Mar, [facility] [place] [address] [facility] [id number] [address] [place] [phone] Jan, [facility] [place] [address] [facility] [id number] [address] [place] [address] Dec, [facility] [place] [address] [facility] [id number] [address] [place] [address] Dec, [facility] [place] [address] [facility] [id number] [address] [place] [address] Dec, Bipolar 2 disorder F31.81 ; Social anxiety disorder F40.10 and Attention deficit disorder F90.0 [facility] [place] [address] [facility] [id number] [address] [place] [phone] Dec, [facility] [place] [address] [facility] [id number] [address] [place] [address] Dec, Hypertension I10 [facility] [place] [address] [id number] [address] [place] [phone] October, [facility] [place] [address] [id number] [address] [place] [phone] Oct, [facility] [place] [address] [facility] [id number] [address] [place] [address] Oct, Nasal congestion R09.81 [facility] [place] [address] [id number] [address] [place] [address] Oct, Social anxiety disorder F40. 10 ; Bipolar 2 disorder F31.81 and Attention deficit disorder F90.0 [facility] [place] [address] [facility] [id number] [address] [place] [phone] Aug, [facility] [place] [address] [facility] [id number] [address] [place] [phone] Aug, [facility] [place] [address] [facility] [id number] [address] [place] [address] Jul, Nasal congestion R09.81 [facility] [place] [address] [facility] [id number] [address] [place] [phone] Jul, [facility] [place] [address] [facility] [id number] [address] [place] [address] Jun, Bipolar 2 disorder F31.81 ; Attention deficit disorder F90.0 ; Social anxiety disorder F40.10 and Chronic post-traumatic stress disorder (PTSD) F43.12 [facility] [place] [address] [id number] [address] [place] [phone] Jun, [facility] [place] [address] [facility] [id number] [address] [place] [phone] May, [facility] [place] [address] [facility] [id number] [address] [place] [phone] 14 Apr, 2016 Attention deficit disorder F 90.0 [facility] [place] [address] [facility] [id number] [address] [place] [address] Apr, Urinary hesitancy R39.11 ; H yperlipidemia E78.5 and Encounter for immunization Z23 [facility] [place] [address] [facility] [id number] [address] [place] [phone] Apr, [facility] [place] [address] [facility] [id number] [address] [place] [id number] Mar, [facility] [place] [address] [facility] [id number] [address] [place] [phone] Jan, [facility] [place] [address] [facility] [id number] [address] [place] [phone] Dec, [facility] [place] [address] [facility] [id number] [address] [place] [phone] Dec, [facility] [place] [address] [facility] [id number] [address] [place] [address] Dec, Bipolar 2 disorder F31.81 ; Attention deficit disorder F90.0 ; Posttraumatic stress disorder F43.10 and Social anxiety disorder F40.10 [facility] [address] [facility] [id number] [address] [place] [phone] Dec, Scabies exposure Z20.89 and Scabies B86 [facility] [place] [address] [facility] [id number] [address] [place] [phone] Dec, [facility] [place] [address] [facility] [id number] [address] [place] [phone] Dec, Hypertension I10 and Gastroe sophageal reflux disease without esophagitis K21.9 [facility] [place] [address] [facility] [id number] [address] [place] [address] October, [facility] [place] [address] [facility] [id number] [address] [place] [address] October, [facility] [place] [address] [facility] [id number] [address] [place] [address] Oct, Bipolar 2 disorder F31.81 ; Posttraumatic stress disorder F43.10 ; Attention deficit disorder F90.0 and Social anxiety disorder F40.10 [facility] [place] [address] [facility] [id number] [address] [place] [address] Oct, [facility] [place] [address] [place] [id number] [place] [address] Oct, Hypertension I10 and Nasal c ongestion R09.81 [facility] [place] [address] [facility] [id number] [address] [place] [address] Aug, [facility] [place] [address] [facility] [id number] [place] [address] Aug, [facility] [place] [address] [address] Aug, [facility] [place] [address] [place] [id number] [place] [address] Aug, [facility] [place] [address] [address] Aug, [facility] [place] [address] [place] [id number] [place] [address] Aug, Hypertension I10 and Tremor R25.1 [facility] [place] [address] [place] [id number] [place] [address] Aug, Bipolar 2 disorder F31.81 ; Posttraumatic stress disorder F43.10 ; Attention deficit disorder F90.0 and Social anxiety disorder F40.10 [facility] [place] [address] [place] [id number] [place] [phone] Jul, [facility] [place] [address] [place] [id number] [address] [place] [address] Jul, Hyperlipidemia E78.5 [place] [address] [place] [id number] [place] [address] Jul, Hypertension I10 and Hyperli pidemia E78.5 [facility] [place] [address] [place] [id number] [place] [address] Jun, Bipolar 2 disorder F31.81 ; Posttraumatic stress disorder F43.10 ; Attention deficit disorder F90.0 and Social anxiety disorder F40.10 [facility] [place] [address] [id number] [address] [place] [phone] May, [facility] [place] [address] [facility] [id number] [address] [place] [phone] May, [facility] [place] [address] [facility] [id number] [address] [place] [address] Apr, Bipolar 2 disorder F31.81 ; Posttraumatic stress disorder F43.10 ; Attention deficit disorder F90.0 and Social phobia F40.10 [facility] [place] [address] [facility] [id number] [address] [place] [phone] Apr, Bipolar 2 disorder F31.81 ; Posttraumatic stress disorder F43.10 and Attention deficit disorder F90.0 [facility] [place] [address] [facility] [id number] [address] [place] [phone] Apr, [facility] [place] [address] [id number] [address] [place] [phone] Apr, [facility] [place] [address] [facility] [id number] [address] [place] [phone] Apr, [facility] [place] [address] [facility] [id number] [address] [place] [phone] Mar, [facility] [place] [address] [facility] [id number] [address] [place] [phone] Mar, [facility] [place] [address] [id number] [address] [place] [address] Jan, [facility] [place] [address] [facility] [id number] [address] [place] [address] Jan, [facility] [place] [address] [facility] [id number] [address] [place] [address] Jan, Bipolar II disorder 296.89 ; Posttraumatic stress disorder 309.81 ; Social phobia 300.23 and Attention deficit disorder of childhood without mention of hyperactivity 314.00 [facility] [place] [address] [facility] [id number] [address] [place] [address] Jan, Other and unspecified bipola r disorders 296.89 ; Posttraumatic stress disorder 309.81 and Attention deficit disorder of childhood without mention of hyperactivity 314.00 [facility] [place] [address] [facility] [id number] [address] [place] [address] Jan, [facility] [place] [address] [facility] [id number] [address] [place] [phone] Dec, Other and unspecified bipola r disorders 296.89 ; Posttraumatic stress disorder 309.81 and Attention deficit disorder of childhood without mention of hyperactivity 314.00 [facility] [place] [address] [facility] [id number] [address] [place] [address] Dec, Migraines 346.90 [facility] [place] [address] [facility] [id number] [address] [place] [phone] Dec, Other and unspecified bipola r disorders 296.89 ; Posttraumatic stress disorder 309.81 and Attention deficit disorder of childhood without mention of hyperactivity 314.00 [facility] [place] [address] [facility] [id number] [address] [place] [phone] Dec, [facility] [place] [address] [facility] [id number] [address] [place] [address] Dec, Bipolar II disorder 296.89 ; Social phobia 300.23 ; Posttraumatic stress disorder 309.81 and Attention deficit disorder of childhood without mention of hyperactivity 314.00 [facility] [place] [address] [facility] [id number] [address] [place] [address] Dec, Other and unspecified bipola r disorders 296.89 ; Posttraumatic stress disorder 309.81 and Attention deficit disorder of childhood without mention of hyperactivity 314.00 [facility] [place] [address] [facility] [id number] [address] [place] [address] October, Other and unspecified bipola r disorders 296.89 ; Posttraumatic stress disorder 309.81 and Attention deficit disorder of childhood without mention of hyperactivity 314.00 [facility] [place] [address] [facility] [id number] [address] [place] [id number] October, [facility] [place] [address] [id number] [address] [place] [id number] October, [facility] [place] [address] [id number] [address] [place] [phone] October, [facility] [place] [address] [id number] [address] [place] [id number] October, [facility] [place] [address] [facility] [id number] [address] [place] [id number] October, Attention deficit disorder o f childhood without mention of hyperactivity 314.00 ; Posttraumatic stress disorder 309.81 ; Social phobia 300.23 and Other and unspecified bipolar disorders 296.89 [facility] [place] [address] [id number] [address] [place] [id number] Oct, [facility] [place] [address] [facility] [id number] [address] [place] [phone] Oct, [facility] [place] [address] [id number] [address] [place] [phone] Aug, [facility] [place] [address] [id number] [address] [place] [phone] Aug, [facility] [place] [address] [id number] [address] [place] [phone] Aug, [facility] [place] [address] [id number] [address] [place] [phone] Aug, [facility] [place] [address] [id number] [address] [place] [phone] Aug, [facility] [place] [address] [id number] [address] [place] [id number] Aug, [facility] [place] [address] [id number] [address] [place] [id number] Aug, [facility] [place] [address] [id number] [address] [place] [phone] Aug, [facility] [address] [id number] [facility] [place] [id number] 17 Aug, 2014 [facility] [address] [id number] [facility] [place] [id number] 17 Aug, 2014 [facility] [address] [id number] [facility] [place] [id number] 13 Aug, 2014 [facility] [address] [id number] [facility] [id number] 13 Aug, 2014 [facility] [address] [id number] [facility] [address] 12 Aug, 2014 [facility] [address] [id number] [address] [place] [address], [place] [id number] 12 Aug, 2014 [facility] [address] [address] [id number] [address] [place] [address], [place] [address] 12 Aug, 2014 [facility] [address] [id number] [address] [place] [address], [place] [address] 12 Aug, 2014 [facility] [address] [id number] [address] [place] [address], [place] [address] Aug, [facility] [address] [id number] [address] [place] [address], [place] [address] 12 Aug, 2014 [facility] [address] [id number] [address] [place] [address], [place] [address] Aug, [facility] [address] [id number] [address] [place] [address], [place] [address] Aug, [facility] [address] [id number] [address] [place] [address], [place] [address] 04 Aug, 2014 [facility] [address] [id number] [address] [place] [address], [place] [address] 04 Aug, 2014 [facility] [address] [id number] [address] [place] [address], [place] [address] 03 Aug, 2014 [facility] [address] [id number] [address] [place] [address], [place] [address] Aug, [facility] [address] [id number] [address] [place] [address], [place] [address] Aug, [facility] [address] [id number] [address] [place] [address], [place] [address] Aug, [facility] [address] [id number] [address] [place] [address], [place] [address] Aug, [facility] [address] [id number] [address] [place] [address], [place] [address] Aug, [facility] [address] [id number] [address] [place] [address], [place] [address] Aug, [facility] [address] [id number] [address] [place] [address], [place] [address] Aug, [facility] [address] [id number] [address] [place] [address], [place] [address] Jul, [facility] [address] [id number] [address] [place] [address], [place] [address] Jul, [facility] [address] [id number] [address] [place] [address], [place] [address] Jul, [facility] [address] [id number] [address] [place] [address], [place] [address] Jul, [facility] [address] [id number] [address] [place] [address], [place] [address] Jul, [facility] [address] [id number] [address] [place] [id number] Jul, [facility] [address] [id number] [address] [place] [address], [place] [address] Jul, [facility] [address] [id number] [address] [place] [address], [place] [address] Jul, [facility] [address] [id number] [address] [place] [address], [place] [address] Jun, [facility] [place] [address] [id number] [address] [place] [id number] Jun, [facility] [place] [address] [id number] [address] [place] [id number] Jun, [facility] [place] [address] [id number] [address] [place] [id number] Jun, [facility] [place] [address] [id number] [address] [place] [id number] May, [facility] [place] [address] [id number] [address] [place] [id number] May, [facility] [place] [address] [id number] [address] [place] [id number] May, [facility] [place] [address] [id number] [address] [place] [id number] May, [facility] [place] [address] [id number] [address] [place] [id number] May, [facility] [place] [address] [id number] [address] [place] [id number] Apr, [facility] [place] [address] [id number] [address] [place] [id number] Apr, IMMUNIZATIONS No Known Immunizations SOCIAL HISTORY [...]
--- OUTSIDE RECORDS SUMMARY | 2019-11-11 19:10 | XMS REPORT ---
Author Author [place] Organization [facility] Address [address] [place] [address] Care Team Providers Care Tripoler Name Role Phone F[place]ON JOHNSON Unavailable PROBLEMS Type Condition ICD9-CM Code [id number] Code Onset Dates Condition S tatus SNOMED Code Problem Social anxiety disorder F40.10 Active 63455377 Problem Hyperlipidemia E78.5 Active 91323 004 Problem Hypertension I10 Active 1441266 3 Problem Pure hypercholesterolemia E78.00 Acti ve 611417664 Problem Attention deficit disorder F90.0 Act shalom 947326071 Problem PTSD (post-traumatic stress disorder) F43.10 Active 00622356 Problem Bipolar 2 disorder F31.81 Active 8 8229152 Problem Chronic post-traumatic stress disorder (PTSD) F43. 12 Active 635436047 Problem Other chronic pain G89.29 Active 8 8985591 Problem Lumbago with sciatica, left side M54.42 Active 565656580 Problem Lumbago with sciatica, right side M54.41 Active [id number] ALLERGIES No Information ENCOUNTERS Encounter Location Date Diagnosis [facility] [address] [facility] [id number] [address] [place] [id number] Jan, [facility] [address] [facility] [id number] [address] [place] [id number] Dec, [facility] [address] [facility] [id number] [address] [place] [address] Dec, Bipolar 2 disorder F31.81 [facility] [address] [facility] [id number] [address] [place] [address] Oct, Bipolar 2 disorder F31.81 [facility] [address] [facility] [id number] [address] [place] [address] Oct, Bipolar 2 disorder F31.81 ; Attention deficit disorder F90.0 ; Social anxiety disorder F40.10 and Chronic post-traumatic stress disorder (PTSD) F43.12 [facility] [address] [id number] [place] [address] Aug, Lumbago with sciatica, left side M54.42 and Lumbago with sciatica, right side M54.41 [facility] [address] [address] Aug, Bipolar 2 disorder F31.81 [facility] [address] [place] [id number] [place] [address] Aug, Bipolar 2 disorder F31.81 [place] [address] [address] Aug, Bipolar 2 disorder F31.81 ; Attention deficit disorder F90.0 ; Social anxiety disorder F40.10 and PTSD (post-traumatic stress disorder) F43.10 [facility] [address] [address] Jul, [facility] [id number] [place] [address] Jun, Nasal congestion R09.81 ; Ac ping nonintractable headache, unspecified headache type R51 and Viral upper respiratory tract infection J06.9 [place] [address] [address] Jun, [facility] [address] [address] May, [place] [address] [address] May, [place] [address] [address] May, Bipolar 2 disorder F31.81 ; Social anxiety disorder F40.10 ; Chronic post-traumatic stress disorder (PTSD) F43.12 ; Attention deficit disorder F90.0 and Encounter for immunization Z23 [facility] [address] [facility] [id number] [address] [place] [address] Apr, [facility] [id number] [place] [address] Apr, Body aches R52 and Acute chely opharyngitis J00 [facility] [id number] [place] [address] 24 Mar, 2018 Pure hypercholesterolemia E7 8.00 and Exertional chest pain R07.9 [facility] [address] [facility] [id number] [place] [address] Mar, Hyperlipidemia E78.5 ; Hyper tension I10 and Routine adult health maintenance Z00.00 [facility] [id number] [place] [address] 20 Mar, 2018 Hypertension I10 ; Hyperlipi demia E78.5 ; Chest pain, exertional R07.9 and Routine adult health maintenance Z00.00 [facility] [address] [address] 17 Mar, 2018 [place] [address] [address] Mar, Lumbago with sciatica, left side M54.42 and Lumbago with sciatica, right side M54.41 [place] [address] [address] Jan, [facility] [address] [address] Dec, Bipolar 2 disorder F31.81 ; Social anxiety disorder F40.10 and Chronic post-traumatic stress disorder (PTSD) F43.12 [place] [address] [place] [id number] [place] [address] Dec, [facility] [id number] [place] [address] Dec, [facility] [address] [place] [id number] [place] [address] Dec, Upper respiratory tract infe ction, unspecified type J06.9 [facility] [address] [id number] [address] [place] [address] October, [facility] [address] [id number] [address] [place] [address] Oct, Bipolar 2 disorder F31.81 ; Attention deficit disorder F90.0 ; Social anxiety disorder F40.10 and Chronic post-traumatic stress disorder (PTSD) F43.12 [facility] [address] [id number] [address] [place] [address] Oct, [facility] [address] [id number] [address] [place] [id number] Oct, [facility] [address] [id number] [address] [place] [address] Aug, [facility] [address] [id number] [address] [place] [address] Aug, [facility] [address] [id number] [address] [place] [address] Jul, Strain of lumbar region, ini tial encounter S39.012A [facility] [address] [id number] [address] [place] [address] Jul, Lumbago with sciatica, left side M54.42 and Lumbago with sciatica, right side M54.41 [facility] [address] [id number] [address] [place] [address] Jul, Low back pain M54.5 and Othe r chronic pain G89.29 [facility] [address] [id number] [address] [place] [address] Jul, [facility] [address] [facility] [id number] [address] [place] [address] Jul, Bipolar 2 disorder F31.81 ; Attention deficit disorder F90.0 and Social anxiety disorder F40.10 [facility] [address] [facility] [id number] [address] [place] [address] Jun, [facility] [address] [facility] [id number] [address] [place] [address] May, [facility] [address] [facility] [id number] [address] [place] [address] Apr, Bipolar 2 disorder F31.81 ; Attention deficit disorder F90.0 ; Social anxiety disorder F40.10 and Chronic post-traumatic stress disorder (PTSD) F43.12 [facility] [address] [facility] [id number] [address] [place] [phone] Apr, [facility] [address] [facility] [id number] [address] [place] [address] Apr, Hyperlipidemia E78.5 [facility] [address] [facility] [id number] [address] [place] [address] Mar, Encounter for immunization Z 23 and Tinea cruris B35.6 [facility] [address] [facility] [id number] [address] [place] [phone] Mar, [facility] [address] [facility] [id number] [address] [place] [address] Jan, [facility] [address] [facility] [id number] [address] [place] [address] Dec, [facility] [address] [facility] [id number] [address] [place] [phone] Dec, [facility] [address] [facility] [id number] [address] [place] [address] Dec, Bipolar 2 disorder F31.81 ; Social anxiety disorder F40.10 and Attention deficit disorder F90.0 [facility] [address] [facility] [id number] [address] [place] [phone] Dec, [facility] [address] [facility] [id number] [address] [place] [address] Dec, Hypertension I10 [facility] [address] [id number] [address] [place] [address] October, [facility] [address] [id number] [address] [place] [address] Oct, [facility] [address] [facility] [id number] [address] [place] [address] Oct, Nasal congestion R09.81 [facility] [address] [id number] [address] [place] [address] Oct, Social anxiety disorder F40. 10 ; Bipolar 2 disorder F31.81 and Attention deficit disorder F90.0 [facility] [address] [facility] [id number] [address] [place] [phone] Aug, [facility] [address] [facility] [id number] [address] [place] [address] Aug, [facility] [address] [facility] [id number] [address] [place] [address] Jul, Nasal congestion R09.81 [facility] [address] [facility] [id number] [address] [place] [address] Jul, [facility] [address] [facility] [id number] [address] [place] [address] Jun, Bipolar 2 disorder F31.81 ; Attention deficit disorder F90.0 ; Social anxiety disorder F40.10 and Chronic post-traumatic stress disorder (PTSD) F43.12 [facility] [address] [id number] [address] [place] [address] Jun, [facility] [address] [facility] [id number] [address] [place] [address] May, [facility] [address] [facility] [id number] [address] [place] [phone] 14 Apr, 2016 Attention deficit disorder F 90.0 [facility] [address] [facility] [id number] [address] [place] [address] Apr, Urinary hesitancy R39.11 ; H yperlipidemia E78.5 and Encounter for immunization Z23 [facility] [address] [facility] [id number] [address] [place] [address] Apr, [facility] [address] [facility] [id number] [address] [place] [address] Mar, [facility] [address] [facility] [id number] [address] [place] [phone] Jan, [facility] [address] [facility] [id number] [address] [place] [phone] Dec, [facility] [address] [facility] [id number] [address] [place] [phone] Dec, [facility] [address] [facility] [id number] [address] [place] [address] Dec, Bipolar 2 disorder F31.81 ; Attention deficit disorder F90.0 ; Posttraumatic stress disorder F43.10 and Social anxiety disorder F40.10 [facility] [address] [facility] [id number] [address] [place] [address] Dec, Scabies exposure Z20.89 and Scabies B86 [facility] [address] [facility] [id number] [address] [place] [phone] Dec, [facility] [address] [facility] [id number] [address] [place] [address] Dec, Hypertension I10 and Gastroe sophageal reflux disease without esophagitis K21.9 [facility] [address] [facility] [id number] [address] [place] [phone] October, [facility] [address] [facility] [id number] [address] [place] [phone] October, [facility] [address] [facility] [id number] [address] [place] [address] Oct, Bipolar 2 disorder F31.81 ; Posttraumatic stress disorder F43.10 ; Attention deficit disorder F90.0 and Social anxiety disorder F40.10 [facility] [address] [facility] [id number] [address] [place] [phone] Oct, [facility] [address] [id number] [place] [address] Oct, Hypertension I10 and Nasal c ongestion R09.81 [facility] [address] [facility] [id number] [address] [place] [address] Aug, [facility] [address] [facility] [id number] [place] [id number] Aug, [facility] [address] [address] Aug, [facility] [address] [id number] [place] [address] Aug, [facility] [address] [address] Aug, [facility] [address] [id number] [place] [address] Aug, Hypertension I10 and Tremor R25.1 [facility] [address] [place] [id number] [place] [address] Aug, Bipolar 2 disorder F31.81 ; Posttraumatic stress disorder F43.10 ; Attention deficit disorder F90.0 and Social anxiety disorder F40.10 [facility] [address] [place] [id number] [address] [place] [address] Jul, [facility] [address] [place] [id number] [address] [place] [address] Jul, Hyperlipidemia E78.5 [place] [address] [place] [id number] [place] [address] Jul, Hypertension I10 and Hyperli pidemia E78.5 [facility] [address] [place] [id number] [place] [address] Jun, Bipolar 2 disorder F31.81 ; Posttraumatic stress disorder F43.10 ; Attention deficit disorder F90.0 and Social anxiety disorder F40.10 [facility] [address] [id number] [address] [place] [address] May, [facility] [address] [facility] [id number] [address] [place] [address] May, [facility] [address] [facility] [id number] [address] [place] [address] Apr, Bipolar 2 disorder F31.81 ; Posttraumatic stress disorder F43.10 ; Attention deficit disorder F90.0 and Social phobia F40.10 [facility] [address] [facility] [id number] [address] [place] [phone] Apr, Bipolar 2 disorder F31.81 ; Posttraumatic stress disorder F43.10 and Attention deficit disorder F90.0 [facility] [address] [facility] [id number] [address] [place] [address] Apr, [facility] [address] [id number] [address] [place] [address] Apr, [facility] [address] [facility] [id number] [address] [place] [phone] Apr, [facility] [address] [facility] [id number] [address] [place] [address] Mar, [facility] [address] [facility] [id number] [address] [place] [address] Mar, [facility] [address] [id number] [address] [place] [phone] Jan, [facility] [address] [facility] [id number] [address] [place] [address] Jan, [facility] [address] [facility] [id number] [address] [place] [address] Jan, Bipolar II disorder 296.89 ; Posttraumatic stress disorder 309.81 ; Social phobia 300.23 and Attention deficit disorder of childhood without mention of hyperactivity 314.00 [facility] [address] [facility] [id number] [address] [place] [id number] Jan, Other and unspecified bipola r disorders 296.89 ; Posttraumatic stress disorder 309.81 and Attention deficit disorder of childhood without mention of hyperactivity 314.00 [facility] [address] [facility] [id number] [address] [place] [address] Jan, [facility] [address] [facility] [id number] [address] [place] [address] Dec, Other and unspecified bipola r disorders 296.89 ; Posttraumatic stress disorder 309.81 and Attention deficit disorder of childhood without mention of hyperactivity 314.00 [facility] [address] [facility] [id number] [address] [place] [address] Dec, Migraines 346.90 [facility] [address] [facility] [id number] [address] [place] [address] Dec, Other and unspecified bipola r disorders 296.89 ; Posttraumatic stress disorder 309.81 and Attention deficit disorder of childhood without mention of hyperactivity 314.00 [facility] [address] [facility] [id number] [address] [place] [address] Dec, [facility] [address] [facility] [id number] [address] [place] [address] Dec, Bipolar II disorder 296.89 ; Social phobia 300.23 ; Posttraumatic stress disorder 309.81 and Attention deficit disorder of childhood without mention of hyperactivity 314.00 [facility] [address] [facility] [id number] [address] [place] [address] Dec, Other and unspecified bipola r disorders 296.89 ; Posttraumatic stress disorder 309.81 and Attention deficit disorder of childhood without mention of hyperactivity 314.00 [facility] [address] [facility] [id number] [address] [place] [address] October, Other and unspecified bipola r disorders 296.89 ; Posttraumatic stress disorder 309.81 and Attention deficit disorder of childhood without mention of hyperactivity 314.00 [facility] [address] [facility] [id number] [address] [place] [address] October, [facility] [address] [id number] [address] [place] [phone] October, [facility] [address] [id number] [address] [place] [address] October, [facility] [address] [id number] [address] [place] [address] October, [facility] [address] [facility] [id number] [address] [place] [address] October, Attention deficit disorder o f childhood without mention of hyperactivity 314.00 ; Posttraumatic stress disorder 309.81 ; Social phobia 300.23 and Other and unspecified bipolar disorders 296.89 [facility] [address] [id number] [address] [place] [address] Oct, [facility] [address] [facility] [id number] [address] [place] [address] Oct, [facility] [address] [id number] [address] [place] [address] Aug, [facility] [address] [id number] [address] [place] [id number] Aug, [facility] [address] [id number] [address] [place] [phone] Aug, [facility] [address] [id number] [address] [place] [address] Aug, [facility] [address] [id number] [address] [place] [address] Aug, [facility] [address] [id number] [address] [place] [phone] Aug, [facility] [address] [id number] [address] [place] [address] Aug, [facility] [address] [id number] [address] [place] [phone] Aug, [facility] [address] [id number] [facility] [place] [address] 17 Aug, 2014 [facility] [address] [id number] [facility] [place] [address] 17 Aug, 2014 [facility] [address] [id number] [facility] [place] [address] 13 Aug, 2014 [facility] [address] [id number] [facility] [place] [address] 13 Aug, 2014 [facility] [address] [id number] [facility] [place] [address] 12 Aug, 2014 [facility] [address] [id number] [address] [place] [address], [place] [id number] 12 Aug, 2014 [facility] [address] [id number] [address] [place] [address], [place] [id number] 12 Aug, 2014 [facility] [address] [id number] [address] [place] [address], [place] [id number] 12 Aug, 2014 [facility] [address] [id number] [address] [place] [address], [place] [id number] Aug, [facility] [address] [id number] [address] [place] [address], [place] [id number] 12 Aug, 2014 [facility] [address] [id number] [address] [place] [address], [place] [id number] Aug, [facility] [address] [id number] [address] [place] [address], [place] [id number] Aug, [facility] [address] [id number] [address] [place] [address], [place] [id number] 04 Aug, 2014 [facility] [address] [id number] [address] [place] [address], [place] [id number] 04 Aug, 2014 [facility] [address] [id number] [address] [place] [address], [place] [id number] 03 Aug, 2014 [facility] [address] [id number] [address] [place] [address], [place] [id number] Aug, [facility] [address] [id number] [address] [place] [address], [place] [id number] Aug, [facility] [address] [id number] [address] [place] [address], [place] [id number] Aug, [facility] [address] [id number] [address] [place] [address], [place] [id number] Aug, [facility] [address] [id number] [address] [place] [address], [place] [id number] Aug, [facility] [address] [id number] [address] [place] [address], [place] [id number] Aug, [facility] [address] [id number] [address] [place] [address], [place] [id number] Aug, [facility] [address] [id number] [address] [place] [address], [place] [id number] Jul, [facility] [address] [id number] [address] [place] [address], [place] [id number] Jul, [facility] [address] [id number] [address] [place] [address], [place] [id number] Jul, [facility] [address] [id number] [address] [place] [address], [place] [id number] Jul, [facility] [address] [id number] [address] [place] [address], [place] [id number] Jul, [facility] [address] [id number] [address] [place] [id number] Jul, [facility] [address] [id number] [address] [place] [address], [place] [id number] Jul, [facility] [address] [id number] [address] [place] [address], [place] [id number] Jul, [facility] [address] [id number] [address] [place] [address], [place] [id number] Jun, [facility] [address] [id number] [address] [place] [id number] Jun, [facility] [address] [id number] [address] [place] [id number] Jun, [facility] [address] [id number] [address] [place] [phone] Jun, [facility] [address] [id number] [address] [place] [id number] May, [facility] [address] [id number] [address] [place] [phone] May, [facility] [address] [id number] [address] [place] [id number] May, [facility] [address] [id number] [address] [place] [id number] May, [facility] [address] [id number] [address] [place] [id number] May, [facility] [address] [id number] [address] [place] [id number] Apr, [facility] [address] [id number] [address] [place] [id number] Apr, IMMUNIZATIONS No Known Immunizations SOCIAL HISTORY Never Assessed REASON FOR VISIT PLAN OF CARE VITAL SIGNS Height 64.5 in 2014-07-10 Weight 164.06 lbs 2014-07-10 Temperature 97.2 degrees Fahrenheit 2014-07-10 Heart Rate 80 bpm 2014-07-10 Respiratory Rate 20 2014-07-10 Blood pressure systolic 128 mmHg 2014-07-10 Blood pressure diastolic 74 mmHg 2014-07-10 MEDICATIONS Unknown Medications RESULTS No Results PROCEDURES [...]
--- OUTSIDE RECORDS SUMMARY | 2019-11-11 19:10 | XMS REPORT ---
Author Author [place] Doctor Organization [facility] Address Unknown Phone Unavailable Care Team Providers Care Rn Medical Inpatient Services Name Role Phone Migration, Doctor Unavailable Unavailable PROBLEMS Type Condition ICD9-CM Code FUY99-GN Code Onset Dates Condition S tatus SNOMED Code Problem Social anxiety disorder F40.10 Active 32947057 Problem Hyperlipidemia E78.5 Active 15172 004 Problem Hypertension I10 Active 2259464 3 Problem Pure hypercholesterolemia E78.00 Acti ve 782281576 Problem Attention deficit disorder F90.0 Act shalom 024310697 Problem PTSD (post-traumatic stress disorder) F43.10 Active 26425851 Problem Bipolar 2 disorder F31.81 Active 8 3289162 Problem Chronic post-traumatic stress disorder (PTSD) F43. 12 Active 531266454 Problem Other chronic pain G89.29 Active 8 8140489 Problem Lumbago with sciatica, left side M54.42 Active 564498123 Problem Lumbago with sciatica, right side M54.41 Active [id number] ALLERGIES No Information ENCOUNTERS Encounter Location Date Diagnosis [facility] [address] [id number] [address] [place] [address] Jan, [facility] [address] [id number] [address] [place] [address] Oct, Bipolar 2 disorder F31.81 ; Attention deficit disorder F90.0 ; Social anxiety disorder F40.10 and Chronic post-traumatic stress disorder (PTSD) F43.12 [facility] [address] [facility] [id number] [address] [place] [address] Aug, Lumbago with sciatica, left side M54.42 and Lumbago with sciatica, right side M54.41 [facility] [address] [facility] [id number] [address] [place] [address] Aug, Bipolar 2 disorder F31.81 [facility] [address] [address] 18 Aug, 2018 Bipolar 2 disorder F31.81 [facility] [address] [address] Aug, Bipolar 2 disorder F31.81 ; Attention deficit disorder F90.0 ; Social anxiety disorder F40.10 and PTSD (post-traumatic stress disorder) F43.10 [facility] [address] [address] Jul, [facility] [address] [address] Jun, Nasal congestion R09.81 ; Ac ping nonintractable headache, unspecified headache type R51 and Viral upper respiratory tract infection J06.9 [place] [address] [address] Jun, [place] [address] [address] May, [facility] [address] [address] May, [place] [address] [address] May, Bipolar 2 disorder F31.81 ; Social anxiety disorder F40.10 ; Chronic post-traumatic stress disorder (PTSD) F43.12 ; Attention deficit disorder F90.0 and Encounter for immunization Z23 [facility] [address] [address] Apr, [facility] [address] [address] Apr, Body aches R52 and Acute chely opharyngitis J00 [place] [address] [address] 24 Mar, 2018 Pure hypercholesterolemia E7 8.00 and Exertional chest pain R07.9 [place] [address] [id number] [place] [address] 21 Mar, 2018 Hyperlipidemia E78.5 ; Hyper tension I10 and Routine adult health maintenance Z00.00 [facility] [address] [facility] [id number] [address] [place] [address] 20 Mar, 2018 Hypertension I10 ; Hyperlipi demia E78.5 ; Chest pain, exertional R07.9 and Routine adult health maintenance Z00.00 [facility] [address] [facility] [id number] [address] [place] [address] 17 Mar, 2018 [facility] [id number] [place] [address] 04 Mar, 2018 Lumbago with sciatica, left side M54.42 and Lumbago with sciatica, right side M54.41 [place] [address] [id number] [place] [address] Jan, [place] [id number] [place] [address] Dec, Bipolar 2 disorder F31.81 ; Social anxiety disorder F40.10 and Chronic post-traumatic stress disorder (PTSD) F43.12 [facility] [address] [id number] [address] [place] [address] Dec, [facility] [id number] [place] [address] Dec, [facility] [address] [id number] [address] [place] [address] Dec, Upper respiratory tract infe ction, unspecified type J06.9 [facility] [address] [id number] [address] [place] [address] October, [facility] [id number] [place] [address] Oct, Bipolar 2 disorder F31.81 ; Attention deficit disorder F90.0 ; Social anxiety disorder F40.10 and Chronic post-traumatic stress disorder (PTSD) F43.12 [facility] [address] [id number] [address] [place] [address] Oct, [facility] [address] [id number] [address] [place] [address] Oct, [facility] [address] [id number] [address] [place] [address] Aug, [facility] [address] [id number] [address] [place] [address] Aug, [facility] [address] [id number] [address] [place] [address] Jul, Strain of lumbar region, ini tial encounter S39.012A [facility] [address] [facility] [id number] [address] [place] [address] Jul, Lumbago with sciatica, left side M54.42 and Lumbago with sciatica, right side M54.41 [facility] [address] [id number] [address] [place] [address] Jul, Low back pain M54.5 and Othe r chronic pain G89.29 [facility] [address] [facility] [id number] [address] [place] [address] Jul, [facility] [address] [facility] [id number] [address] [place] [address] Jul, Bipolar 2 disorder F31.81 ; Attention deficit disorder F90.0 and Social anxiety disorder F40.10 [facility] [address] [id number] [address] [place] [address] Jun, [facility] [address] [facility] [id number] [address] [place] [address] May, [facility] [address] [facility] [id number] [address] [place] [address] Apr, Bipolar 2 disorder F31.81 ; Attention deficit disorder F90.0 ; Social anxiety disorder F40.10 and Chronic post-traumatic stress disorder (PTSD) F43.12 [facility] [address] [facility] [id number] [address] [place] [address] Apr, [facility] [address] [facility] [id number] [address] [place] [address] Apr, Hyperlipidemia E78.5 [facility] [address] [facility] [id number] [address] [place] [address] 27 Mar, 2017 Encounter for immunization Z 23 and Tinea cruris B35.6 [facility] [address] [facility] [id number] [address] [place] [address] 15 Mar, 2017 [facility] [address] [facility] [id number] [address] [place] [address] Jan, [facility] [address] [facility] [id number] [address] [place] [address] Dec, [facility] [address] [facility] [id number] [address] [place] [address] Dec, [facility] [address] [id number] [address] [place] [address] Dec, Bipolar 2 disorder F31.81 ; Social anxiety disorder F40.10 and Attention deficit disorder F90.0 [facility] [address] [facility] [id number] [address] [place] [address] Dec, [facility] [address] [facility] [id number] [address] [place] [address] Dec, Hypertension I10 [facility] [address] [facility] [id number] [address] [place] [address] October, [facility] [address] [facility] [id number] [address] [place] [address] 28 Oct, 2016 [facility] [address] [facility] [id number] [address] [place] [address] 10 Oct, 2016 Nasal congestion R09.81 [facility] [address] [facility] [id number] [address] [place] [address] Oct, Social anxiety disorder F40. 10 ; Bipolar 2 disorder F31.81 and Attention deficit disorder F90.0 [facility] [address] [id number] [address] [place] [address] Aug, [facility] [address] [facility] [id number] [address] [place] [address] Aug, [facility] [address] [facility] [id number] [address] [place] [address] Jul, Nasal congestion R09.81 [facility] [address] [facility] [id number] [address] [place] [address] Jul, [facility] [address] [facility] [id number] [address] [place] [address] Jun, Bipolar 2 disorder F31.81 ; Attention deficit disorder F90.0 ; Social anxiety disorder F40.10 and Chronic post-traumatic stress disorder (PTSD) F43.12 [facility] [address] [facility] [id number] [address] [place] [address] Jun, [facility] [address] [facility] [id number] [address] [place] [address] May, [facility] [address] [id number] [address] [place] [address] 14 Apr, 2016 Attention deficit disorder F 90.0 [facility] [address] [facility] [id number] [address] [place] [address] Apr, Urinary hesitancy R39.11 ; H yperlipidemia E78.5 and Encounter for immunization Z23 [facility] [address] [facility] [id number] [address] [place] [address] Apr, [facility] [address] [facility] [id number] [address] [place] [address] 16 Mar, 2016 [facility] [address] [facility] [id number] [address] [place] [phone] Jan, [facility] [address] [facility] [id number] [address] [place] [address] Dec, [facility] [address] [id number] [address] [place] [phone] Dec, [facility] [address] [facility] [id number] [address] [place] [address] Dec, Bipolar 2 disorder F31.81 ; Attention deficit disorder F90.0 ; Posttraumatic stress disorder F43.10 and Social anxiety disorder F40.10 [facility] [address] [facility] [id number] [address] [place] [address] Dec, Scabies exposure Z20.89 and Scabies B86 [facility] [address] [facility] [id number] [address] [place] [address] Dec, [facility] [address] [facility] [id number] [address] [place] [address] Dec, Hypertension I10 and Gastroe sophageal reflux disease without esophagitis K21.9 [facility] [address] [facility] [id number] [address] [place] [address] October, [facility] [address] [facility] [id number] [address] [place] [address] October, [facility] [address] [facility] [id number] [address] [place] [address] Oct, Bipolar 2 disorder F31.81 ; Posttraumatic stress disorder F43.10 ; Attention deficit disorder F90.0 and Social anxiety disorder F40.10 [facility] [address] [facility] [id number] [address] [place] [address] Oct, [facility] [address] [facility] [id number] [address] [place] [address] Oct, Hypertension I10 and Nasal c ongestion R09.81 [facility] [address] [facility] [id number] [address] [place] [address] Aug, [facility] [address] [facility] [id number] [address] [place] [address] Aug, [facility] [address] [facility] [id number] [address] [place] [address] Aug, [facility] [address] [facility] [id number] [address] [place] [address] Aug, [facility] [address] [id number] [address] [place] [address] Aug, [facility] [id number] [place] [address] Aug, Hypertension I10 and Tremor R25.1 [facility] [id number] [place] [address] Aug, Bipolar 2 disorder F31.81 ; Posttraumatic stress disorder F43.10 ; Attention deficit disorder F90.0 and Social anxiety disorder F40.10 [facility] [id number] [place] [address] Jul, [facility] [address] [facility] [id number] [address] [place] [address] Jul, Hyperlipidemia E78.5 [facility] [address] [id number] [place] [address] Jul, Hypertension I10 and Hyperli pidemia E78.5 [facility] [address] [facility] [id number] [address] [place] [address] Jun, Bipolar 2 disorder F31.81 ; Posttraumatic stress disorder F43.10 ; Attention deficit disorder F90.0 and Social anxiety disorder F40.10 [facility] [address] [facility] [id number] [address] [place] [address] May, [facility] [id number] [place] [address] May, [facility] [id number] [place] [address] Apr, Bipolar 2 disorder F31.81 ; Posttraumatic stress disorder F43.10 ; Attention deficit disorder F90.0 and Social phobia F40.10 [facility] [address] [id number] [address] [place] [address] Apr, Bipolar 2 disorder F31.81 ; Posttraumatic stress disorder F43.10 and Attention deficit disorder F90.0 [facility] [address] [id number] [address] [place] [phone] Apr, [facility] [address] [id number] [address] [place] [address] Apr, [facility] [address] [id number] [address] [place] [address] Apr, [facility] [address] [id number] [address] [place] [address] Mar, [facility] [address] [facility] [id number] [address] [place] [address] Mar, [facility] [address] [facility] [id number] [address] [place] [address] Jan, [facility] [address] [id number] [address] [place] [address] Jan, [facility] [address] [facility] [id number] [address] [place] [address] Jan, Bipolar II disorder 296.89 ; Posttraumatic stress disorder 309.81 ; Social phobia 300.23 and Attention deficit disorder of childhood without mention of hyperactivity 314.00 [facility] [address] [facility] [id number] [address] [place] [address] Jan, Other and unspecified bipola r disorders 296.89 ; Posttraumatic stress disorder 309.81 and Attention deficit disorder of childhood without mention of hyperactivity 314.00 [facility] [address] [facility] [id number] [address] [place] [address] Jan, [facility] [address] [facility] [id number] [address] [place] [address] Dec, Other and unspecified bipola r disorders 296.89 ; Posttraumatic stress disorder 309.81 and Attention deficit disorder of childhood without mention of hyperactivity 314.00 [facility] [address] [facility] [id number] [address] [place] [address] Dec, Migraines 346.90 [facility] [address] [facility] [id number] [address] [place] [address] Dec, Other and unspecified bipola r disorders 296.89 ; Posttraumatic stress disorder 309.81 and Attention deficit disorder of childhood without mention of hyperactivity 314.00 [facility] [address] [facility] [id number] [address] [place] [address] Dec, [facility] [address] [facility] [id number] [address] [place] [address] Dec, Bipolar II disorder 296.89 ; Social phobia 300.23 ; Posttraumatic stress disorder 309.81 and Attention deficit disorder of childhood without mention of hyperactivity 314.00 [facility] [address] [facility] [id number] [address] [place] [address] Dec, Other and unspecified bipola r disorders 296.89 ; Posttraumatic stress disorder 309.81 and Attention deficit disorder of childhood without mention of hyperactivity 314.00 [facility] [address] [facility] [id number] [address] [place] [address] October, Other and unspecified bipola r disorders 296.89 ; Posttraumatic stress disorder 309.81 and Attention deficit disorder of childhood without mention of hyperactivity 314.00 [facility] [address] [facility] [id number] [address] [place] [address] October, [facility] [address] [facility] [id number] [address] [place] [address] October, [facility] [address] [facility] [id number] [address] [place] [address] October, [facility] [address] [facility] [id number] [address] [place] [address] October, [facility] [address] [facility] [id number] [address] [place] [address] October, Attention deficit disorder o f childhood without mention of hyperactivity 314.00 ; Posttraumatic stress disorder 309.81 ; Social phobia 300.23 and Other and unspecified bipolar disorders 296.89 [facility] [address] [id number] [address] [place] [address] 14 Oct, 2014 [facility] [address] [id number] [address] [place] [address] Oct, [facility] [address] [id number] [address] [place] [address] Aug, [facility] [address] [id number] [address] [place] [address] Aug, [facility] [address] [id number] [address] [place] [address] Aug, [facility] [address] [id number] [address] [place] [address] Aug, [facility] [address] [id number] [address] [place] [address] Aug, [facility] [address] [id number] [address] [place] [address] Aug, [facility] [address] [id number] [address] [place] [address] Aug, [facility] [address] [id number] [address] [place] [address] Aug, [facility] [address] [id number] [address] [place] [address] Aug, [facility] [address] [id number] [address] [place] [address] Aug, [facility] [address] [id number] [address] [place] [address] Aug, [facility] [address] [id number] [address] [place] [phone] Aug, [facility] [address] [id number] [facility] [place] [address] 12 Aug, 2014 [facility] [address] [id number] [address] [place] [address], [place] [address] Aug, [facility] [address] [id number] [facility] [place] [address] Aug, [facility] [address] [id number] [address] [place] [address], [place] [address] Aug, [facility] [address] [id number] [address] [place] [address], [place] [address] Aug, [facility] [address] [id number] [address] [place] [address], [place] [address] Aug, [facility] [address] [id number] [address] [place] [address], [place] [id number] Aug, [facility] [address] [id number] [address] [place] [address], [place] [id number] Aug, [facility] [address] [id number] [address] [place] [address], [place] [id number] Aug, [facility] [address] [id number] [address] [place] [address], [place] [id number] Aug, [facility] [address] [id number] [address] [place] [address], [place] [id number] Aug, [facility] [address] [id number] [address] [place] [address], [place] [id number] Aug, [facility] [address] [id number] [address] [place] [address], [place] [id number] Aug, [facility] [address] [id number] [address] [place] [address], [place] [id number] Aug, [facility] [address] [id number] [address] [place] [address], [place] [address] Aug, [facility] [address] [id number] [address] [place] [address], [place] [id number] Aug, [facility] [address] [id number] [address] [place] [address], [place] [id number] Aug, [facility] [address] [id number] [address] [place] [address], [place] [address] Aug, [facility] [address] [id number] [address] [place] [address], [place] [id number] Jul, [facility] [address] [id number] [address] [place] [address], [place] [address] Jul, [facility] [address] [id number] [address] [place] [address], [place] [address] Jul, [facility] [address] [id number] [address] [place] [address], [place] [address] Jul, [facility] [address] [id number] [address] [place] [address], [place] [address] Jul, [facility] [address] [id number] [address] [place] [address], [place] [address] Jul, [facility] [address] [id number] [address] [place] [address], [place] [address] Jul, [facility] [address] [id number] [address] [place] [address], [place] [address] Jul, [facility] [address] [id number] [address] [place] [address], [place] [address] Jun, [facility] [address] [id number] [address] [place] [address], [place] [address] Jun, [facility] [address] [id number] [address] [place] [address], [place] [address] Jun, [facility] [address] [id number] [address] [place] [address], [place] [address] Jun, [facility] [address] [id number] [address] [place] [address], [place] [address] May, [facility] [address] [id number] [address] [place] [id number] May, [facility] [address] [facility] [id number] [address] [place] [id number] May, [facility] [address] [facility] [id number] [address] [place] [id number] May, [facility] [address] [facility] [id number] [address] [place] [id number] May, [facility] [address] [facility] [id number] [address] [place] [id number] Apr, [facility] [address] [facility] [id number] [address] [place] [id number] Apr, IMMUNIZATIONS No Known Immunizations SOCIAL HISTORY Never Assessed [place] [place] VITAL SIGNS MEDICATIONS Unknown [...]
--- OUTSIDE RECORDS SUMMARY | 2019-11-11 19:10 | XMS REPORT ---
Author Author [place] Organization [facility] Address [address] [place] [address] Care Team Providers Care Cell Attendant Name Role Phone FLEX GUILLERMO Unavailable PROBLEMS Type Condition ICD9-CM Code [id number] Code Onset Dates Condition S tatus SNOMED Code Problem Hypertension I10 Active 4958351 3 Problem Gastroesophageal reflux disease without esophagitis K21.9 Active 292087456 Problem Hyperlipidemia E78.5 Active 60427 004 Problem Posttraumatic stress disorder F43.10 Active 99783116 Problem Bipolar 2 disorder F31.81 Active 8 9862076 Problem Attention deficit disorder F90.0 Act shalom 354394426 Problem Social anxiety disorder F40.10 Active 36375073 Problem Pure hypercholesterolemia E78.00 Acti ve 645870300 Problem Lumbago with sciatica, right side M54.41 Active [id number] Problem Chronic post-traumatic stress disorder (PTSD) F43. 12 Active 090720829 Problem Urinary hesitancy R39.11 Active 59 43331 Problem Lumbago with sciatica, left side M54.42 Active 881509273 Problem Other chronic pain G89.29 Active 8 4437284 ALLERGIES No Information ENCOUNTERS Encounter Location Date Diagnosis [facility] [address] [facility] [id number] [address] [place] [phone] Aug, [facility] [address] [facility] [id number] [address] [place] [phone] Jun, [facility] [address] [facility] [id number] [address] [place] [phone] May, [facility] [address] [facility] [id number] [address] [place] [phone] May, [facility] [address] [facility] [id number] [address] [place] [address] May, Bipolar 2 disorder F31.81 ; Social anxiety disorder F40.10 ; Chronic post-traumatic stress disorder (PTSD) F43.12 ; Attention deficit disorder F90.0 and Encounter for immunization Z23 [facility] [address] [phone] Apr, [facility] [address] [place] [id number] [place] [phone] Apr, Body aches R52 and Acute chely opharyngitis J00 [facility] [address] [place] [id number] [place] [phone] 24 Mar, 2018 Pure hypercholesterolemia E7 8.00 and Exertional chest pain R07.9 [place] [address] [id number] [place] [phone] 21 Mar, 2018 Hyperlipidemia E78.5 ; Hyper tension I10 and Routine adult health maintenance Z00.00 [place] [address] [address] 20 Mar, 2018 Hypertension I10 ; Hyperlipi demia E78.5 ; Chest pain, exertional R07.9 and Routine adult health maintenance Z00.00 [facility] [address] [phone] 17 Mar, 2018 [place] [address] [address] Mar, Lumbago with sciatica, left side M54.42 and Lumbago with sciatica, right side M54.41 [facility] [address] [place] [id number] [place] [phone] Jan, [place] [address] [address] Dec, Bipolar 2 disorder F31.81 ; Social anxiety disorder F40.10 and Chronic post-traumatic stress disorder (PTSD) F43.12 [place] [address] [address] Dec, [place] [address] [id number] [address] [place] [phone] Dec, [facility] [address] [facility] [id number] [address] [place] [phone] Dec, Upper respiratory tract infe ction, unspecified type J06.9 [facility] [address] [facility] [id number] [address] [place] [phone] October, [facility] [address] [place] [id number] [place] [phone] Oct, Bipolar 2 disorder F31.81 ; Attention deficit disorder F90.0 ; Social anxiety disorder F40.10 and Chronic post-traumatic stress disorder (PTSD) F43.12 [place] [address] [place] [id number] [place] [phone] Oct, [place] [address] [place] [id number] [place] [phone] Oct, [facility] [address] [facility] [id number] [address] [place] [phone] Aug, [place] [address] [place] [id number] [place] [phone] Aug, [facility] [address] [facility] [id number] [address] [place] [phone] Jul, Strain of lumbar region, ini tial encounter S39.012A [facility] [address] [facility] [id number] [address] [place] [phone] Jul, Lumbago with sciatica, left side M54.42 and Lumbago with sciatica, right side M54.41 [facility] [address] [facility] [id number] [address] [place] [phone] Jul, Low back pain M54.5 and Othe r chronic pain G89.29 [facility] [address] [facility] [id number] [address] [place] [phone] Jul, [place] [address] [facility] [id number] [address] [place] [phone] Jul, Bipolar 2 disorder F31.81 ; Attention deficit disorder F90.0 and Social anxiety disorder F40.10 [facility] [address] [facility] [id number] [address] [place] [phone] Jun, [facility] [address] [facility] [id number] [address] [place] [phone] May, [facility] [address] [facility] [id number] [address] [place] [phone] Apr, Bipolar 2 disorder F31.81 ; Attention deficit disorder F90.0 ; Social anxiety disorder F40.10 and Chronic post-traumatic stress disorder (PTSD) F43.12 [facility] [address] [facility] [id number] [address] [place] [phone] Apr, [facility] [address] [place] [id number] [place] [phone] Apr, Hyperlipidemia E78.5 [facility] [address] [facility] [id number] [address] [place] [phone] Mar, Encounter for immunization Z 23 and Tinea cruris B35.6 [facility] [address] [facility] [id number] [address] [place] [phone] Mar, [facility] [address] [facility] [id number] [address] [place] [phone] Jan, [facility] [address] [facility] [id number] [address] [place] [phone] Dec, [facility] [address] [facility] [id number] [address] [place] [phone] Dec, [facility] [address] [facility] [id number] [address] [place] [phone] Dec, Bipolar 2 disorder F31.81 ; Social anxiety disorder F40.10 and Attention deficit disorder F90.0 [facility] [address] [id number] [address] [place] [phone] Dec, [facility] [address] [id number] [address] [place] [phone] Dec, Hypertension I10 [facility] [address] [id number] [address] [place] [phone] October, [facility] [address] [id number] [address] [place] [phone] Oct, [facility] [address] [id number] [address] [place] [phone] Oct, Nasal congestion R09.81 [facility] [address] [facility] [id number] [address] [place] [phone] Oct, Social anxiety disorder F40. 10 ; Bipolar 2 disorder F31.81 and Attention deficit disorder F90.0 [facility] [address] [facility] [id number] [address] [place] [phone] Aug, [facility] [address] [id number] [address] [place] [phone] Aug, [facility] [address] [facility] [id number] [address] [place] [phone] Jul, Nasal congestion R09.81 [facility] [address] [facility] [id number] [address] [place] [phone] Jul, [facility] [address] [facility] [id number] [address] [place] [phone] Jun, Bipolar 2 disorder F31.81 ; Attention deficit disorder F90.0 ; Social anxiety disorder F40.10 and Chronic post-traumatic stress disorder (PTSD) F43.12 [facility] [address] [id number] [address] [place] [phone] 09 Jun, 2016 [facility] [address] [facility] [id number] [address] [place] [phone] 11 May, 2016 [facility] [address] [facility] [id number] [address] [place] [phone] Apr, Attention deficit disorder F 90.0 [facility] [address] [facility] [id number] [address] [place] [phone] Apr, Urinary hesitancy R39.11 ; H yperlipidemia E78.5 and Encounter for immunization Z23 [facility] [address] [facility] [id number] [address] [place] [phone] Apr, [facility] [address] [facility] [id number] [address] [place] [phone] Mar, [facility] [address] [facility] [id number] [address] [place] [phone] Jan, [facility] [address] [facility] [id number] [place] [phone] Dec, [facility] [address] [place] [id number] [place] [phone] Dec, [facility] [address] [place] [id number] [place] [phone] Dec, Bipolar 2 disorder F31.81 ; Attention deficit disorder F90.0 ; Posttraumatic stress disorder F43.10 and Social anxiety disorder F40.10 [facility] [address] [place] [id number] [place] [phone] Dec, Scabies exposure Z20.89 and Scabies B86 [facility] [address] [place] [id number] [place] [phone] Dec, [facility] [address] [facility] [id number] [address] [place] [phone] Dec, Hypertension I10 and Gastroe sophageal reflux disease without esophagitis K21.9 [facility] [address] [facility] [id number] [address] [place] [phone] October, [facility] [address] [place] [id number] [place] [phone] October, [facility] [address] [address] Oct, Bipolar 2 disorder F31.81 ; Posttraumatic stress disorder F43.10 ; Attention deficit disorder F90.0 and Social anxiety disorder F40.10 [facility] [address] [place] [id number] [place] [phone] Oct, [facility] [address] [place] [id number] [place] [phone] Oct, Hypertension I10 and Nasal c ongestion R09.81 [facility] [address] [place] [id number] [place] [phone] Aug, [facility] [address] [phone] Aug, [facility] [address] [address] Aug, [facility] [address] [phone] Aug, [facility] [address] [phone] Aug, [facility] [address] [address] Aug, Hypertension I10 and Tremor R25.1 [facility] [address] [address] Aug, Bipolar 2 disorder F31.81 ; Posttraumatic stress disorder F43.10 ; Attention deficit disorder F90.0 and Social anxiety disorder F40.10 [facility] [address] [phone] Jul, [facility] [address] [address] Jul, Hyperlipidemia E78.5 [facility] [address] [place] [id number] [place] [phone] Jul, Hypertension I10 and Hyperli pidemia E78.5 [facility] [address] [id number] [address] [place] [address] Jun, Bipolar 2 disorder F31.81 ; Posttraumatic stress disorder F43.10 ; Attention deficit disorder F90.0 and Social anxiety disorder F40.10 [facility] [address] [id number] [address] [place] [phone] May, [facility] [address] [id number] [address] [place] [phone] May, [facility] [address] [facility] [id number] [address] [place] [phone] Apr, Bipolar 2 disorder F31.81 ; Posttraumatic stress disorder F43.10 ; Attention deficit disorder F90.0 and Social phobia F40.10 [facility] [address] [id number] [address] [place] [phone] Apr, Bipolar 2 disorder F31.81 ; Posttraumatic stress disorder F43.10 and Attention deficit disorder F90.0 [facility] [address] [facility] [id number] [address] [place] [phone] Apr, [facility] [address] [id number] [address] [place] [phone] Apr, [facility] [address] [facility] [id number] [address] [place] [phone] Apr, [facility] [address] [id number] [address] [place] [phone] Mar, [facility] [address] [id number] [address] [place] [phone] Mar, [facility] [address] [id number] [address] [place] [phone] Jan, [facility] [address] [id number] [address] [place] [phone] Jan, [facility] [address] [id number] [address] [place] [phone] Jan, Bipolar II disorder 296.89 ; Posttraumatic stress disorder 309.81 ; Social phobia 300.23 and Attention deficit disorder of childhood without mention of hyperactivity 314.00 [facility] [address] [facility] [id number] [address] [place] [phone] Jan, Other and unspecified bipola r disorders 296.89 ; Posttraumatic stress disorder 309.81 and Attention deficit disorder of childhood without mention of hyperactivity 314.00 [facility] [address] [facility] [id number] [address] [place] [phone] Jan, [facility] [address] [facility] [id number] [address] [place] [phone] Dec, Other and unspecified bipola r disorders 296.89 ; Posttraumatic stress disorder 309.81 and Attention deficit disorder of childhood without mention of hyperactivity 314.00 [facility] [address] [place] [id number] [place] [address] Dec, Migraines 346.90 [facility] [address] [facility] [id number] [address] [place] [phone] Dec, Other and unspecified bipola r disorders 296.89 ; Posttraumatic stress disorder 309.81 and Attention deficit disorder of childhood without mention of hyperactivity 314.00 [facility] [address] [facility] [id number] [address] [place] [phone] Dec, [facility] [address] [facility] [id number] [address] [place] [phone] Dec, Bipolar II disorder 296.89 ; Social phobia 300.23 ; Posttraumatic stress disorder 309.81 and Attention deficit disorder of childhood without mention of hyperactivity 314.00 [facility] [address] [facility] [id number] [address] [place] [address] Dec, Other and unspecified bipola r disorders 296.89 ; Posttraumatic stress disorder 309.81 and Attention deficit disorder of childhood without mention of hyperactivity 314.00 [facility] [address] [facility] [id number] [address] [place] [address] October, Other and unspecified bipola r disorders 296.89 ; Posttraumatic stress disorder 309.81 and Attention deficit disorder of childhood without mention of hyperactivity 314.00 [facility] [address] [id number] [address] [place] [phone] October, [facility] [address] [id number] [address] [place] [phone] October, [facility] [address] [id number] [address] [place] [phone] October, [facility] [address] [id number] [address] [place] [phone] October, [facility] [address] [id number] [address] [place] [phone] October, Attention deficit disorder o f childhood without mention of hyperactivity 314.00 ; Posttraumatic stress disorder 309.81 ; Social phobia 300.23 and Other and unspecified bipolar disorders 296.89 [facility] [address] [id number] [address] [place] [phone] Oct, [facility] [address] [id number] [address] [place] [phone] Oct, [facility] [address] [facility] [id number] [address] [place] [phone] Aug, [facility] [address] [facility] [id number] [address] [place] [phone] Aug, [facility] [address] [id number] [address] [place] [phone] Aug, [facility] [address] [id number] [address] [place] [phone] Aug, [facility] [address] [id number] [address] [place] [phone] Aug, [facility] [address] [id number] [address] [place] [phone] Aug, [facility] [address] [id number] [address] [place] [phone] 17 Aug, 2014 [facility] [address] [id number] [facility] [place] [id number] 17 Aug, 2014 [facility] [address] [id number] [facility] [place] [address] 17 Aug, 2014 [facility] [address] [id number] [facility] [place] [address] 17 Aug, 2014 [facility] [address] [id number] [address] [place] [address], [place] [id number] 13 Aug, 2014 [facility] [address] [id number] [address] [place] [address], [place] [id number] 13 Aug, 2014 [facility] [address] [id number] [address] [place] [address], [place] [id number] 12 Aug, 2014 [facility] [address] [id number] [address] [place] [address], [place] [id number] Aug, [facility] [address] [id number] [address] [place] [address], [place] [phone] Aug, [facility] [address] [id number] [address] [place] [address], [place] [phone] Aug, [facility] [address] [id number] [address] [place] [address], [place] [id number] Aug, [facility] [address] [id number] [address] [place] [address], [place] [phone] Aug, [facility] [address] [id number] [address] [place] [address], [place] [phone] Aug, [facility] [address] [id number] [address] [place] [address], [place] [id number] Aug, [facility] [address] [id number] [address] [place] [address], [place] [id number] 04 Aug, 2014 [facility] [address] [id number] [address] [place] [address], [place] [id number] 04 Aug, 2014 [facility] [address] [id number] [address] [place] [address], [place] [id number] Aug, [facility] [address] [id number] [address] [place] [address], [place] [id number] Aug, [facility] [address] [id number] [address] [place] [address], [place] [id number] Aug, 2014 [facility] [address] [id number] [address] [place] [address], [place] [id number] Aug, 2014 [facility] [address] [id number] [address] [place] [address], [place] [id number] Aug, [facility] [address] [id number] [address] [place] [address], [place] [id number] Aug, [facility] [address] [id number] [address] [place] [address], [place] [id number] Aug, [facility] [address] [id number] [address] [place] [address], [place] [id number] Aug, [facility] [address] [id number] [address] [place] [address], [place] [id number] Jul, [facility] [address] [id number] [address] [place] [address], [place] [id number] Jul, [facility] [address] [id number] [address] [place] [address], [place] [id number] Jul, [facility] [address] [id number] [address] [place] [address], [place] [id number] Jul, [facility] [address] [id number] [address] [place] [address], [place] [id number] Jul, [facility] [address] [id number] [address] [place] [address], [place] [id number] Jul, [facility] [address] [id number] [address] [place] [address], [place] [id number] Jul, [facility] [address] [id number] [address] [place] [address], [place] [id number] Jul, [facility] [address] [id number] [address] [place] [id number] Jun, [facility] [address] [id number] [address] [place] [phone] Jun, [facility] [address] [id number] [address] [place] [phone] Jun, [facility] [address] [id number] [address] [place] [phone] Jun, [facility] [address] [id number] [address] [place] [phone] May, [facility] [address] [id number] [address] [place] [phone] May, [facility] [address] [id number] [address] [place] [id number] May, [facility] [address] [id number] [address] [place] [phone] May, [facility] [address] [id number] [address] [place] [phone] May, [facility] [address] [id number] [address] [place] [phone] Apr, [facility] [address] [id number] [address] [place] [phone] Apr, IMMUNIZATIONS No Known Immunizations SOCIAL HISTORY Never Assessed REASON FOR VISIT vyvanse 06/26/2018 PLAN OF CARE VITAL SIGNS MEDICATIONS Medication Instructions Dosage Frequency Start Date End Date Duration S tatus Vyvanse 30 MG Orally Once a day for ADHD 1 capsule in the morning Jun, 28 days Active RESULTS No Results PROCEDURES No Known procedures INSTRUCTIONS MEDICATIONS ADMINISTERED No Known Medications MEDICAL (GENERAL) HISTORY Type Description Date Medical History Hypertension Medical History GERD Medical History Bipolar Surgical History Hernia right ingual Surgical History Colonoscopy october 2014 Hospitalization History surgeries Hospitalization History ER for dehydration and vomitting 10/04/15
--- OUTSIDE RECORDS SUMMARY | 2019-11-11 19:10 | XMS REPORT ---
Author Author [place] Doctor Organization [facility] Address Unknown Phone Unavailable Care Team Providers Care Professor Of Environmental Studies Name Role Phone Migration, Doctor Unavailable Unavailable PROBLEMS Type Condition ICD9-CM Code [id number] Code Onset Dates Condition S tatus SNOMED Code Problem Social anxiety disorder F40.10 Active 34398663 Problem Hyperlipidemia E78.5 Active 48326 004 Problem Hypertension I10 Active 8703763 3 Problem Pure hypercholesterolemia E78.00 Acti ve 784499797 Problem Attention deficit disorder F90.0 Act shalom 701221979 Problem PTSD (post-traumatic stress disorder) F43.10 Active 59041671 Problem Bipolar 2 disorder F31.81 Active 8 2802536 Problem Chronic post-traumatic stress disorder (PTSD) F43. 12 Active 272119740 Problem Other chronic pain G89.29 Active 8 0346178 Problem Lumbago with sciatica, left side M54.42 Active 273920659 Problem Lumbago with sciatica, right side M54.41 Active [id number] ALLERGIES No Information ENCOUNTERS Encounter Location Date Diagnosis [facility] [address] [id number] [address] [place] [id number] 04 Oct, 2018 [facility] [address] [id number] [address] [place] [phone] Aug, Lumbago with sciatica, left side M54.42 and Lumbago with sciatica, right side M54.41 [facility] [address] [facility] [id number] [address] [place] [phone] Aug, Bipolar 2 disorder F31.81 [facility] [address] [id number] [address] [place] [id number] 18 Aug, 2018 Bipolar 2 disorder F31.81 [facility] [address] [id number] [address] [place] [phone] 07 Aug, 2018 Bipolar 2 disorder F31.81 ; Attention deficit disorder F90.0 ; Social anxiety disorder F40.10 and PTSD (post-traumatic stress disorder) F43.10 [facility] [address] [address] Jul, [facility] [id number] [place] [phone] Jun, Nasal congestion R09.81 ; Ac ping nonintractable headache, unspecified headache type R51 and Viral upper respiratory tract infection J06.9 [facility] [id number] [place] [phone] Jun, [place] [address] [phone] May, [place] [address] [address] May, [place] [address] [phone] May, Bipolar 2 disorder F31.81 ; Social anxiety disorder F40.10 ; Chronic post-traumatic stress disorder (PTSD) F43.12 ; Attention deficit disorder F90.0 and Encounter for immunization Z23 [place] [address] [phone] Apr, [facility] [address] [address] Apr, Body aches R52 and Acute chely opharyngitis J00 [place] [address] [address] Mar, Pure hypercholesterolemia E7 8.00 and Exertional chest pain R07.9 [place] [id number] [place] [phone] Mar, Hyperlipidemia E78.5 ; Hyper tension I10 and Routine adult health maintenance Z00.00 [place] [address] [address] Mar, Hypertension I10 ; Hyperlipi demia E78.5 ; Chest pain, exertional R07.9 and Routine adult health maintenance Z00.00 [facility] [address] [facility] [id number] [address] [place] [phone] Mar, [facility] [address] [facility] [id number] [address] [place] [phone] Mar, Lumbago with sciatica, left side M54.42 and Lumbago with sciatica, right side M54.41 [facility] [address] [facility] [id number] [address] [place] [phone] Jan, [facility] [address] [facility] [id number] [address] [place] [address] Dec, Bipolar 2 disorder F31.81 ; Social anxiety disorder F40.10 and Chronic post-traumatic stress disorder (PTSD) F43.12 [facility] [address] [facility] [id number] [address] [place] [address] Dec, [facility] [address] [facility] [id number] [address] [place] [id number] Dec, [facility] [address] [facility] [id number] [address] [place] [phone] Dec, Upper respiratory tract infe ction, unspecified type J06.9 [facility] [address] [facility] [id number] [address] [place] [phone] October, [facility] [address] [facility] [id number] [address] [place] [address] Oct, Bipolar 2 disorder F31.81 ; Attention deficit disorder F90.0 ; Social anxiety disorder F40.10 and Chronic post-traumatic stress disorder (PTSD) F43.12 [facility] [address] [facility] [id number] [address] [place] [phone] Oct, [facility] [address] [facility] [id number] [address] [place] [phone] Oct, [place] [address] [facility] [id number] [address] [place] [phone] Aug, [facility] [address] [facility] [id number] [address] [place] [phone] Aug, [facility] [address] [facility] [id number] [address] [place] [address] Jul, Strain of lumbar region, ini tial encounter S39.012A [facility] [address] [facility] [facility] [id number] [address] [place] [phone] Jul, Lumbago with sciatica, left side M54.42 and Lumbago with sciatica, right side M54.41 [facility] [address] [facility] [id number] [address] [place] [address] Jul, Low back pain M54.5 and Othe r chronic pain G89.29 [facility] [address] [facility] [id number] [address] [place] [phone] Jul, [facility] [address] [facility] [id number] [address] [place] [phone] Jul, Bipolar 2 disorder F31.81 ; Attention deficit disorder F90.0 and Social anxiety disorder F40.10 [facility] [address] [facility] [id number] [address] [place] [phone] Jun, [place] [address] [id number] [address] [place] [phone] May, [facility] [address] [facility] [id number] [address] [place] [address] Apr, Bipolar 2 disorder F31.81 ; Attention deficit disorder F90.0 ; Social anxiety disorder F40.10 and Chronic post-traumatic stress disorder (PTSD) F43.12 [facility] [address] [facility] [id number] [address] [place] [phone] 13 Apr, 2017 [place] [address] [id number] [place] [phone] Apr, Hyperlipidemia E78.5 [facility] [address] [facility] [id number] [address] [place] [phone] Mar, Encounter for immunization Z 23 and Tinea cruris B35.6 [facility] [address] [facility] [facility] [id number] [address] [place] [phone] 15 Mar, 2017 [facility] [address] [facility] [facility] [id number] [address] [place] [phone] Jan, [facility] [address] [facility] [id number] [address] [place] [phone] Dec, [facility] [id number] [place] [address] Dec, [facility] [address] [facility] [id number] [address] [place] [address] Dec, Bipolar 2 disorder F31.81 ; Social anxiety disorder F40.10 and Attention deficit disorder F90.0 [facility] [address] [facility] [id number] [address] [place] [phone] Dec, [facility] [address] [id number] Dec, Hypertension I10 [facility] [address] [facility] [id number] [address] [place] [phone] October, [facility] [address] [id number] [address] [place] [phone] Oct, [facility] [address] [facility] [id number] [address] [place] [phone] Oct, Nasal congestion R09.81 [facility] [address] [id number] [address] [place] [address] Oct, Social anxiety disorder F40. 10 ; Bipolar 2 disorder F31.81 and Attention deficit disorder F90.0 [facility] [address] [facility] [id number] [address] [place] [phone] Aug, [facility] [address] [id number] [address] [place] [id number] Aug, [facility] [address] [facility] [facility] [id number] [address] [place] [phone] Jul, Nasal congestion R09.81 [facility] [address] [facility] [id number] [address] [place] [phone] Jul, [facility] [address] [facility] [id number] [address] [place] [phone] Jun, Bipolar 2 disorder F31.81 ; Attention deficit disorder F90.0 ; Social anxiety disorder F40.10 and Chronic post-traumatic stress disorder (PTSD) F43.12 [facility] [id number] [place] [phone] Jun, [facility] [id number] [place] [phone] May, [facility] [id number] [place] [phone] Apr, Attention deficit disorder F 90.0 [facility] [address] [facility] [id number] [address] [place] [phone] Apr, Urinary hesitancy R39.11 ; H yperlipidemia E78.5 and Encounter for immunization Z23 [facility] [address] [facility] [id number] [address] [place] [phone] Apr, [facility] [address] [facility] [facility] [id number] [address] [place] [phone] Mar, [facility] [address] [facility] [id number] [address] [place] [phone] Jan, [facility] [address] [facility] [facility] [id number] [address] [place] [phone] Dec, [facility] [address] [facility] [id number] [address] [place] [phone] Dec, [facility] [address] [facility] [id number] [address] [place] [phone] Dec, Bipolar 2 disorder F31.81 ; Attention deficit disorder F90.0 ; Posttraumatic stress disorder F43.10 and Social anxiety disorder F40.10 [facility] [address] [id number] [address] [place] [phone] Dec, Scabies exposure Z20.89 and Scabies B86 [facility] [address] [facility] [facility] [id number] [address] [place] [phone] Dec, [facility] [address] [facility] [facility] [id number] [address] [place] [phone] Dec, Hypertension I10 and Gastroe sophageal reflux disease without esophagitis K21.9 [facility] [address] [facility] [id number] [address] [place] [phone] October, [facility] [address] [facility] [id number] [address] [place] [phone] October, [facility] [address] [facility] [facility] [id number] [address] [place] [id number] Oct, Bipolar 2 disorder F31.81 ; Posttraumatic stress disorder F43.10 ; Attention deficit disorder F90.0 and Social anxiety disorder F40.10 [facility] [id number] [place] [phone] Oct, [facility] [address] [id number] [address] [place] [phone] Oct, Hypertension I10 and Nasal c ongestion R09.81 [facility] [address] [facility] [id number] [address] [place] [id number] Aug, [facility] [address] [facility] [id number] [address] [place] [phone] Aug, [facility] [address] [facility] [id number] [address] [place] [phone] Aug, [facility] [address] [facility] [id number] [address] [place] [phone] Aug, [facility] [address] [facility] [id number] [address] [place] [phone] Aug, [facility] [address] [facility] [facility] [id number] [address] [place] [address] Aug, Hypertension I10 and Tremor R25.1 [facility] [id number] [place] [address] Aug, Bipolar 2 disorder F31.81 ; Posttraumatic stress disorder F43.10 ; Attention deficit disorder F90.0 and Social anxiety disorder F40.10 [facility] [address] [facility] [id number] [address] [place] [phone] Jul, [facility] [id number] [place] [address] Jul, Hyperlipidemia E78.5 [place] [id number] [place] [phone] Jul, Hypertension I10 and Hyperli pidemia E78.5 [facility] [id number] [place] [address] Jun, Bipolar 2 disorder F31.81 ; Posttraumatic stress disorder F43.10 ; Attention deficit disorder F90.0 and Social anxiety disorder F40.10 [facility] [address] [id number] [address] [place] [phone] May, [facility] [address] [id number] [place] [phone] May, [facility] [id number] [place] [id number] Apr, Bipolar 2 disorder F31.81 ; Posttraumatic stress disorder F43.10 ; Attention deficit disorder F90.0 and Social phobia F40.10 [facility] [id number] [place] [phone] Apr, Bipolar 2 disorder F31.81 ; Posttraumatic stress disorder F43.10 and Attention deficit disorder F90.0 [facility] [address] [facility] [id number] [address] [place] [phone] Apr, [facility] [address] [facility] [id number] [address] [place] [phone] Apr, [facility] [address] [facility] [id number] [address] [place] [phone] Apr, [facility] [address] [facility] [id number] [address] [place] [phone] Mar, [facility] [address] [facility] [id number] [address] [place] [phone] Mar, [facility] [address] [facility] [id number] [address] [place] [phone] Jan, [facility] [address] [facility] [id number] [address] [place] [address] Jan, [facility] [address] [facility] [facility] [id number] [address] [place] [phone] Jan, Bipolar II disorder 296.89 ; Posttraumatic stress disorder 309.81 ; Social phobia 300.23 and Attention deficit disorder of childhood without mention of hyperactivity 314.00 [facility] [id number] [place] [phone] Jan, Other and unspecified bipola r disorders 296.89 ; Posttraumatic stress disorder 309.81 and Attention deficit disorder of childhood without mention of hyperactivity 314.00 [facility] [address] [facility] [id number] [address] [place] [phone] Jan, [facility] [address] [facility] [id number] [address] [place] [phone] Dec, Other and unspecified bipola r disorders 296.89 ; Posttraumatic stress disorder 309.81 and Attention deficit disorder of childhood without mention of hyperactivity 314.00 [facility] [address] [facility] [facility] [id number] [address] [place] [phone] Dec, Migraines 346.90 [facility] [address] [facility] [id number] [address] [place] [address] Dec, Other and unspecified bipola r disorders 296.89 ; Posttraumatic stress disorder 309.81 and Attention deficit disorder of childhood without mention of hyperactivity 314.00 [facility] [address] [facility] [id number] [address] [place] [phone] Dec, [facility] [address] [facility] [id number] [address] [place] [address] Dec, Bipolar II disorder 296.89 ; Social phobia 300.23 ; Posttraumatic stress disorder 309.81 and Attention deficit disorder of childhood without mention of hyperactivity 314.00 [facility] [address] [facility] [id number] [address] [place] [phone] Dec, Other and unspecified bipola r disorders 296.89 ; Posttraumatic stress disorder 309.81 and Attention deficit disorder of childhood without mention of hyperactivity 314.00 [facility] [address] [facility] [facility] [id number] [address] [place] [phone] October, Other and unspecified bipola r disorders 296.89 ; Posttraumatic stress disorder 309.81 and Attention deficit disorder of childhood without mention of hyperactivity 314.00 [facility] [address] [facility] [id number] [address] [place] [phone] October, [facility] [address] [facility] [facility] [id number] [address] [place] [phone] October, [facility] [address] [facility] [id number] [address] [place] [phone] October, [facility] [address] [facility] [id number] [address] [place] [phone] October, [facility] [address] [facility] [id number] [address] [place] [phone] October, Attention deficit disorder o f childhood without mention of hyperactivity 314.00 ; Posttraumatic stress disorder 309.81 ; Social phobia 300.23 and Other and unspecified bipolar disorders 296.89 [facility] [address] [facility] [id number] [address] [place] [phone] Oct, [facility] [address] [id number] [facility] [place] [address] 13 Oct, 2014 [facility] [address] [id number] [address] [place] [address], [place] [address] 26 Aug, 2014 [facility] [address] [id number] [address] [place] [address], [place] [address] 26 Aug, 2014 [facility] [address] [id number] [address] [place] [address], [place] [address] 24 Aug, 2014 [facility] [address] [id number] [address] [place] [address], [place] [address] 24 Aug, 2014 [facility] [address] [id number] [address] [place] [address], [place] [address] 17 Aug, 2014 [facility] [address] [id number] [address] [place] [address], [place] [address] 17 Aug, 2014 [facility] [address] [id number] [address] [place] [address], [place] [address] 17 Aug, 2014 [facility] [address] [id number] [address] [place] [address], [place] [address] 17 Aug, 2014 [facility] [address] [id number] [address] [place] [address], [place] [address] 17 Aug, 2014 [facility] [address] [id number] [address] [place] [address], [place] [address] 17 Aug, 2014 [facility] [address] [id number] [address] [place] [address], [place] [address] 13 Aug, 2014 [facility] [address] [id number] [address] [place] [address], [place] [address] 13 Aug, 2014 [facility] [address] [id number] [address] [place] [address], [place] [address] 12 Aug, 2014 [facility] [address] [id number] [address] [place] [address], [place] [address] 12 Aug, 2014 [facility] [address] [id number] [address] [place] [address], [place] [address] 12 Aug, 2014 [facility] [address] [id number] [address] [place] [address], [place] [address] Aug, [facility] [address] [id number] [address] [place] [address], [place] [address] Aug, [facility] [address] [id number] [address] [place] [address], [place] [address] Aug, [facility] [address] [id number] [address] [place] [address], [place] [address] Aug, [facility] [address] [id number] [address] [place] [address], [place] [address] Aug, [facility] [address] [id number] [address] [place] [address], [place] [address] Aug, [facility] [address] [id number] [address] [place] [address], [place] [address] Aug, [facility] [address] [id number] [address] [place] [address], [place] [address] Aug, [facility] [address] [id number] [address] [place] [address], [place] [address] Aug, [facility] [address] [id number] [address] [place] [address], [place] [address] Aug, 2014 [facility] [address] [id number] [address] [place] [address], [place] [address] Aug, 2014 [facility] [address] [id number] [address] [place] [address], [place] [address] Aug, 2014 [facility] [address] [id number] [address] [place] [address], [place] [address] Aug, 2014 [facility] [address] [id number] [address] [place] [address], [place] [address] Aug, 2014 [facility] [address] [id number] [address] [place] [address], [place] [address] Aug, [facility] [address] [id number] [address] [place] [address], [place] [address] Jul, [facility] [address] [id number] [address] [place] [address], [place] [address] Jul, [facility] [address] [id number] [address] [place] [address], [place] [address] Jul, [facility] [address] [id number] [address] [place] [address], [place] [address] Jul, [facility] [address] [id number] [address] [place] [address], [place] [address] Jul, [facility] [address] [id number] [address] [place] [address], [place] [address] Jul, [facility] [address] [id number] [address] [place] [address], [place] [address] Jul, [facility] [address] [id number] [address] [place] [address], [place] [address] Jul, [facility] [address] [id number] [address] [place] [address], [place] [address] Jun, [facility] [address] [id number] [address] [place] [address], [place] [address] Jun, [facility] [address] [id number] [address] [place] [address], [place] [address] Jun, [facility] [address] [id number] [address] [place] [address], [place] [address] Jun, [facility] [address] [id number] [address] [place] [address], [place] [address] May, [facility] [address] [id number] [address] [place] [address], [place] [address] May, [facility] [address] [id number] [address] [place] [address], [place] [id number] May, [facility] [address] [id number] [address] [place] [id number] May, [facility] [address] [id number] [address] [place] [id number] May, [facility] [address] [id number] [address] [place] [id number] Apr, [facility] [address] [id number] [address] [place] [id number] Apr, IMMUNIZATIONS No Known Immunizations SOCIAL HISTORY Never Assessed REASON FOR VISIT [facility] [place] VITAL SIGNS MEDICATIONS Medication Instructions Dosage Frequency Start Date End Date Duration S tatus Aspirin 325 mg 1 tablet by Oral route 1 time per day Apr, Active Multivitamin 1 tablet by Oral route 1 time per day 2013 Active Vitamin D3 1,000 unit 2 Capsule 1 time per day take on e tablet orally daily Apr, Active buspirone 15 mg 1 tablet by Oral route 2 times per day for anxiety Aug, Active Skelaxin 800 mg 1 Tablet by Oral route 3-4 times per d ay PRN muscle spasm Aug, Active Vitamin C 500 mg 1 tablet by Oral route 1 time per day 3 0 Apr, 2014 Active Omeprazole 20 mg take 1 capsule (20 m g) by oral route once daily before a meal Apr, Active Colace 100 mg 1 capsule by Oral route 2 times per day PRN Apr, Active Latuda 40 mg 1 tablet by Oral rou te 1 time per day in the evening with 350 kcal Jul, Active BuPROPion HCl 75 mg 1 tablet by Oral route 2 times per day Aug, Active Adderall 10 mg 1 tablet by Oral route 2 times per day for ADHD Aug, Active propranolol 10 mg Take 1 tablet by Ora l route 1 time per day for oral grimmace Aug, Active Zoloft 100 mg 1 tablet by Oral route 2 times per day Aug, Active atorvastatin 20 mg take 1 tablet by Ora l route 1 time per day QHS; Avoid grapefruit juice Apr, Active Anusol-HC 25 mg by Rectal route 2 times per day Aug, Active RESULTS No Results PROCEDURES No Known [...]
--- OUTSIDE RECORDS SUMMARY | 2019-11-11 19:10 | XMS REPORT ---
Author Author [place] Organization [facility] Address [address] [place] [address] Care Team Providers Care Biztalk Architect Name Role Phone DONNAKRISTYSKYLAR Unavailable PROBLEMS Type Condition ICD9-CM Code IKI50-UL Code Onset Dates Condition S tatus SNOMED Code Problem Social anxiety disorder F40.10 Active 56164176 Problem Hyperlipidemia E78.5 Active 74102 004 Problem Hypertension I10 Active 6134664 3 Problem Pure hypercholesterolemia E78.00 Acti ve 841129910 Problem Attention deficit disorder F90.0 Act shalom 616296861 Problem PTSD (post-traumatic stress disorder) F43.10 Active 55119782 Problem Bipolar 2 disorder F31.81 Active 8 4679646 Problem Chronic post-traumatic stress disorder (PTSD) F43. 12 Active 572915172 Problem Other chronic pain G89.29 Active 8 0608099 Problem Lumbago with sciatica, left side M54.42 Active 700187460 Problem Lumbago with sciatica, right side M54.41 Active [id number] ALLERGIES No Information ENCOUNTERS Encounter Location Date Diagnosis [facility] [address] [facility] [id number] [address] [place] [phone] Jan, [facility] [address] [facility] [id number] [address] [place] [phone] Dec, [facility] [address] [facility] [id number] [address] [place] [phone] Dec, Bipolar 2 disorder F31.81 [facility] [address] [facility] [id number] [address] [place] [phone] Oct, Bipolar 2 disorder F31.81 [facility] [address] [facility] [id number] [address] [place] [phone] Oct, Bipolar 2 disorder F31.81 ; Attention deficit disorder F90.0 ; Social anxiety disorder F40.10 and Chronic post-traumatic stress disorder (PTSD) F43.12 [facility] [address] [place] [id number] [place] [phone] Aug, Lumbago with sciatica, left side M54.42 and Lumbago with sciatica, right side M54.41 [facility] [address] [address] Aug, Bipolar 2 disorder F31.81 [facility] [address] [place] [id number] [place] [phone] Aug, Bipolar 2 disorder F31.81 [facility] [address] [address] Aug, Bipolar 2 disorder F31.81 ; Attention deficit disorder F90.0 ; Social anxiety disorder F40.10 and PTSD (post-traumatic stress disorder) F43.10 [facility] [address] [address] Jul, [facility] [id number] [place] [phone] Jun, Nasal congestion R09.81 ; Ac ping nonintractable headache, unspecified headache type R51 and Viral upper respiratory tract infection J06.9 [facility] [address] [phone] Jun, [facility] [address] [address] May, [facility] [address] [address] May, [facility] [address] [address] May, Bipolar 2 disorder F31.81 ; Social anxiety disorder F40.10 ; Chronic post-traumatic stress disorder (PTSD) F43.12 ; Attention deficit disorder F90.0 and Encounter for immunization Z23 [facility] [address] [facility] [id number] [address] [place] [phone] Apr, [facility] [address] [facility] [id number] [address] [place] [phone] Apr, Body aches R52 and Acute chely opharyngitis J00 [facility] [address] [facility] [id number] [address] [place] [phone] Mar, Pure hypercholesterolemia E7 8.00 and Exertional chest pain R07.9 [facility] [address] [facility] [id number] [address] [place] [phone] Mar, Hyperlipidemia E78.5 ; Hyper tension I10 and Routine adult health maintenance Z00.00 [facility] [address] [facility] [id number] [address] [place] [phone] 20 Mar, 2018 Hypertension I10 ; Hyperlipi demia E78.5 ; Chest pain, exertional R07.9 and Routine adult health maintenance Z00.00 [facility] [address] [id number] [place] [phone] 17 Mar, 2018 [place] [address] [address] Mar, Lumbago with sciatica, left side M54.42 and Lumbago with sciatica, right side M54.41 [place] [address] [place] [id number] [place] [phone] Jan, [facility] [address] [id number] [address] [place] [phone] Dec, Bipolar 2 disorder F31.81 ; Social anxiety disorder F40.10 and Chronic post-traumatic stress disorder (PTSD) F43.12 [place] [address] [facility] [id number] [address] [place] [phone] Dec, [facility] [address] [place] [id number] [address] [place] [phone] Dec, [facility] [address] [id number] [address] [place] [phone] Dec, Upper respiratory tract infe ction, unspecified type J06.9 [facility] [address] [id number] [address] [place] [phone] October, [facility] [address] [id number] [address] [place] [phone] Oct, Bipolar 2 disorder F31.81 ; Attention deficit disorder F90.0 ; Social anxiety disorder F40.10 and Chronic post-traumatic stress disorder (PTSD) F43.12 [facility] [address] [id number] [address] [place] [phone] Oct, [facility] [address] [id number] [address] [place] [phone] Oct, [facility] [address] [id number] [address] [place] [phone] Aug, [facility] [address] [id number] [address] [place] [phone] Aug, [facility] [address] [id number] [address] [place] [phone] Jul, Strain of lumbar region, ini tial encounter S39.012A [facility] [address] [id number] [address] [place] [phone] Jul, Lumbago with sciatica, left side M54.42 and Lumbago with sciatica, right side M54.41 [facility] [address] [id number] [address] [place] [phone] Jul, Low back pain M54.5 and Othe r chronic pain G89.29 [facility] [address] [id number] [address] [place] [phone] Jul, [facility] [address] [facility] [id number] [address] [place] [phone] Jul, Bipolar 2 disorder F31.81 ; Attention deficit disorder F90.0 and Social anxiety disorder F40.10 [facility] [address] [facility] [id number] [address] [place] [phone] Jun, [facility] [address] [facility] [id number] [address] [place] [phone] May, [facility] [address] [facility] [id number] [address] [place] [phone] Apr, Bipolar 2 disorder F31.81 ; Attention deficit disorder F90.0 ; Social anxiety disorder F40.10 and Chronic post-traumatic stress disorder (PTSD) F43.12 [facility] [address] [facility] [id number] [address] [place] [phone] Apr, [facility] [address] [facility] [id number] [address] [place] [phone] Apr, Hyperlipidemia E78.5 [facility] [address] [facility] [id number] [address] [place] [phone] Mar, Encounter for immunization Z 23 and Tinea cruris B35.6 [facility] [address] [facility] [id number] [address] [place] [phone] Mar, [facility] [address] [facility] [id number] [address] [place] [phone] Jan, [facility] [address] [facility] [id number] [address] [place] [phone] Dec, [facility] [address] [facility] [id number] [address] [place] [phone] Dec, [facility] [address] [facility] [id number] [address] [place] [id number] Dec, Bipolar 2 disorder F31.81 ; Social anxiety disorder F40.10 and Attention deficit disorder F90.0 [facility] [address] [facility] [id number] [address] [place] [phone] Dec, [facility] [address] [facility] [id number] [address] [place] [phone] Dec, Hypertension I10 [facility] [address] [id number] [address] [place] [phone] October, [facility] [address] [id number] [address] [place] [phone] Oct, [facility] [address] [facility] [id number] [address] [place] [phone] Oct, Nasal congestion R09.81 [facility] [address] [id number] [address] [place] [phone] Oct, Social anxiety disorder F40. 10 ; Bipolar 2 disorder F31.81 and Attention deficit disorder F90.0 [facility] [address] [id number] [address] [place] [phone] Aug, [facility] [address] [facility] [id number] [address] [place] [phone] Aug, [facility] [address] [facility] [id number] [address] [place] [phone] Jul, Nasal congestion R09.81 [facility] [address] [id number] [address] [place] [phone] Jul, [facility] [address] [facility] [id number] [address] [place] [phone] Jun, Bipolar 2 disorder F31.81 ; Attention deficit disorder F90.0 ; Social anxiety disorder F40.10 and Chronic post-traumatic stress disorder (PTSD) F43.12 [facility] [address] [id number] [address] [place] [phone] Jun, [facility] [address] [facility] [id number] [address] [place] [phone] May, [facility] [address] [facility] [id number] [address] [place] [phone] 14 Apr, 2016 Attention deficit disorder F 90.0 [facility] [address] [facility] [id number] [address] [place] [id number] Apr, Urinary hesitancy R39.11 ; H yperlipidemia E78.5 and Encounter for immunization Z23 [facility] [address] [facility] [id number] [address] [place] [phone] Apr, [facility] [address] [facility] [id number] [address] [place] [phone] Mar, [facility] [address] [facility] [id number] [address] [place] [phone] Jan, [facility] [address] [facility] [id number] [address] [place] [phone] Dec, [facility] [address] [facility] [id number] [address] [place] [phone] Dec, [facility] [address] [facility] [id number] [address] [place] [phone] Dec, Bipolar 2 disorder F31.81 ; Attention deficit disorder F90.0 ; Posttraumatic stress disorder F43.10 and Social anxiety disorder F40.10 [facility] [address] [facility] [id number] [address] [place] [phone] Dec, Scabies exposure Z20.89 and Scabies B86 [facility] [address] [facility] [id number] [address] [place] [phone] Dec, [facility] [address] [facility] [id number] [address] [place] [phone] Dec, Hypertension I10 and Gastroe sophageal reflux disease without esophagitis K21.9 [facility] [address] [facility] [id number] [address] [place] [phone] October, [facility] [address] [facility] [id number] [address] [place] [phone] October, [facility] [address] [facility] [id number] [address] [place] [phone] Oct, Bipolar 2 disorder F31.81 ; Posttraumatic stress disorder F43.10 ; Attention deficit disorder F90.0 and Social anxiety disorder F40.10 [facility] [address] [facility] [id number] [address] [place] [phone] Oct, [facility] [address] [facility] [id number] [address] [place] [phone] Oct, Hypertension I10 and Nasal c ongestion R09.81 [facility] [address] [facility] [id number] [address] [place] [phone] Aug, [facility] [address] [facility] [id number] [place] [phone] Aug, [facility] [address] [facility] [id number] [place] [phone] Aug, [facility] [address] [place] [id number] [place] [phone] Aug, [facility] [address] [phone] Aug, [facility] [address] [place] [id number] [place] [phone] Aug, Hypertension I10 and Tremor R25.1 [facility] [address] [place] [id number] [place] [phone] Aug, Bipolar 2 disorder F31.81 ; Posttraumatic stress disorder F43.10 ; Attention deficit disorder F90.0 and Social anxiety disorder F40.10 [facility] [address] [place] [id number] [address] [place] [phone] Jul, [facility] [address] [place] [id number] [address] [place] [phone] Jul, Hyperlipidemia E78.5 [place] [address] [place] [id number] [place] [phone] Jul, Hypertension I10 and Hyperli pidemia E78.5 [facility] [address] [place] [id number] [place] [phone] Jun, Bipolar 2 disorder F31.81 ; Posttraumatic stress disorder F43.10 ; Attention deficit disorder F90.0 and Social anxiety disorder F40.10 [facility] [address] [facility] [id number] [address] [place] [phone] May, [facility] [address] [facility] [id number] [address] [place] [phone] May, [facility] [address] [facility] [id number] [address] [place] [phone] Apr, Bipolar 2 disorder F31.81 ; Posttraumatic stress disorder F43.10 ; Attention deficit disorder F90.0 and Social phobia F40.10 [facility] [address] [facility] [id number] [address] [place] [phone] Apr, Bipolar 2 disorder F31.81 ; Posttraumatic stress disorder F43.10 and Attention deficit disorder F90.0 [facility] [address] [facility] [id number] [address] [place] [phone] Apr, [facility] [address] [facility] [id number] [address] [place] [phone] Apr, [facility] [address] [facility] [id number] [address] [place] [phone] Apr, [facility] [address] [facility] [id number] [address] [place] [phone] Mar, [facility] [address] [facility] [id number] [address] [place] [phone] Mar, [facility] [address] [facility] [id number] [address] [place] [phone] Jan, [facility] [address] [facility] [id number] [address] [place] [phone] Jan, [facility] [address] [facility] [id number] [address] [place] [phone] Jan, Bipolar II disorder 296.89 ; Posttraumatic stress disorder 309.81 ; Social phobia 300.23 and Attention deficit disorder of childhood without mention of hyperactivity 314.00 [facility] [address] [facility] [id number] [address] [place] [id number] Jan, Other and unspecified bipola r disorders 296.89 ; Posttraumatic stress disorder 309.81 and Attention deficit disorder of childhood without mention of hyperactivity 314.00 [facility] [address] [facility] [id number] [address] [place] [phone] Jan, [facility] [address] [facility] [id number] [address] [place] [phone] Dec, Other and unspecified bipola r disorders 296.89 ; Posttraumatic stress disorder 309.81 and Attention deficit disorder of childhood without mention of hyperactivity 314.00 [facility] [address] [facility] [id number] [address] [place] [phone] Dec, Migraines 346.90 [facility] [address] [facility] [id number] [address] [place] [phone] Dec, Other and unspecified bipola r disorders 296.89 ; Posttraumatic stress disorder 309.81 and Attention deficit disorder of childhood without mention of hyperactivity 314.00 [facility] [address] [facility] [id number] [address] [place] [phone] Dec, [facility] [address] [facility] [id number] [address] [place] [phone] Dec, Bipolar II disorder 296.89 ; Social phobia 300.23 ; Posttraumatic stress disorder 309.81 and Attention deficit disorder of childhood without mention of hyperactivity 314.00 [facility] [address] [facility] [id number] [address] [place] [phone] Dec, Other and unspecified bipola r disorders 296.89 ; Posttraumatic stress disorder 309.81 and Attention deficit disorder of childhood without mention of hyperactivity 314.00 [facility] [address] [facility] [id number] [address] [place] [phone] October, Other and unspecified bipola r disorders 296.89 ; Posttraumatic stress disorder 309.81 and Attention deficit disorder of childhood without mention of hyperactivity 314.00 [facility] [address] [facility] [id number] [address] [place] [phone] October, [facility] [address] [id number] [address] [place] [phone] October, [facility] [address] [id number] [address] [place] [phone] October, [facility] [address] [facility] [id number] [address] [place] [phone] October, [facility] [address] [id number] [address] [place] [phone] October, Attention deficit disorder o f childhood without mention of hyperactivity 314.00 ; Posttraumatic stress disorder 309.81 ; Social phobia 300.23 and Other and unspecified bipolar disorders 296.89 [facility] [address] [id number] [address] [place] [phone] Oct, [facility] [address] [id number] [address] [place] [phone] Oct, [facility] [address] [id number] [address] [place] [phone] Aug, [facility] [address] [id number] [address] [place] [phone] Aug, [facility] [address] [id number] [address] [place] [phone] Aug, [facility] [address] [id number] [address] [place] [id number] Aug, [facility] [address] [id number] [address] [place] [id number] Aug, [facility] [address] [id number] [address] [place] [id number] Aug, [facility] [address] [id number] [address] [place] [id number] Aug, [facility] [address] [id number] [address] [place] [id number] Aug, [facility] [address] [id number] [facility] [place] [id number] 17 Aug, 2014 [facility] [address] [id number] [facility] [place] [id number] 17 Aug, 2014 [facility] [address] [id number] [facility] [place] [id number] 13 Aug, 2014 [facility] [address] [id number] [address] [place] [address], [place] [id number] 13 Aug, 2014 [facility] [address] [id number] [address] [place] [address], [place] [id number] 12 Aug, 2014 [facility] [address] [id number] [address] [place] [address], [place] [id number] 12 Aug, 2014 [facility] [address] [id number] [address] [place] [address], [place] [id number] 12 Aug, 2014 [facility] [address] [id number] [address] [place] [address], [place] [id number] 12 Aug, 2014 [facility] [address] [id number] [address] [place] [address], [place] [id number] 12 Aug, 2014 [facility] [address] [id number] [address] [place] [address], [place] [id number] 12 Aug, 2014 [facility] [address] [id number] [address] [place] [address], [place] [id number] 11 Aug, 2014 [facility] [address] [id number] [address] [place] [address], [place] [id number] 11 Aug, 2014 [facility] [address] [id number] [address] [place] [address], [place] [id number] 04 Aug, 2014 [facility] [address] [id number] [address] [place] [address], [place] [id number] 04 Aug, 2014 [facility] [address] [id number] [address] [place] [address], [place] [id number] 03 Aug, 2014 [facility] [address] [id number] [address] [place] [address], [place] [id number] Aug, [facility] [address] [id number] [address] [place] [address], [place] [id number] Aug, [facility] [address] [id number] [address] [place] [address], [place] [id number] Aug, [facility] [address] [id number] [address] [place] [address], [place] [id number] Aug, [facility] [address] [id number] [address] [place] [address], [place] [id number] Aug, [facility] [address] [id number] [address] [place] [address], [place] [id number] Aug, [facility] [address] [id number] [address] [place] [address], [place] [id number] Aug, [facility] [address] [id number] [address] [place] [address], [place] [id number] Jul, [facility] [address] [id number] [address] [place] [address], [place] [address] Jul, [facility] [address] [id number] [address] [place] [address], [place] [id number] Jul, [facility] [address] [id number] [address] [place] [address], [place] [address] Jul, [facility] [address] [id number] [address] [place] [address], [place] [id number] Jul, [facility] [address] [id number] [address] [place] [id number] Jul, [facility] [address] [id number] [address] [place] [address], [place] [address] Jul, [facility] [address] [id number] [address] [place] [address], [place] [address] Jul, [facility] [address] [id number] [address] [place] [address], [place] [address] Jun, [facility] [address] [id number] [address] [place] [phone] Jun, [facility] [address] [id number] [address] [place] [id number] Jun, [facility] [address] [id number] [address] [place] [phone] Jun, [facility] [address] [id number] [address] [place] [phone] May, [facility] [address] [id number] [address] [place] [id number] May, [facility] [address] [id number] [address] [place] [phone] May, [facility] [address] [id number] [address] [place] [phone] May, [facility] [address] [id number] [address] [place] [id number] May, [facility] [address] [id number] [address] [place] [phone] Apr, [facility] [address] [id number] [address] [place] [phone] Apr, IMMUNIZATIONS No Known Immunizations SOCIAL HISTORY Never Assessed REASON FOR VISIT PLAN OF CARE VITAL SIGNS MEDICATIONS Unknown Medications RESULTS No Results PROCEDURES Procedure Date Ordered Result Body Site PSYTX PT&/FAMILY 45 MINUTES Aug 08, 2014 INSTRUCTIONS MEDICATIONS ADMINISTERED No Known Medications [...]
--- OUTSIDE RECORDS SUMMARY | 2019-11-11 19:10 | XMS REPORT ---
Author Author [place] Doctor Organization [facility] Address Unknown Phone Unavailable Care Team Providers Care Solder Sprayer Name Role Phone Migration, Doctor Unavailable Unavailable PROBLEMS Type Condition ICD9-CM Code GGR13-HF Code Onset Dates Condition S tatus SNOMED Code Problem Social anxiety disorder F40.10 Active 93048476 Problem Hyperlipidemia E78.5 Active 31442 004 Problem Hypertension I10 Active 3063914 3 Problem Pure hypercholesterolemia E78.00 Acti ve 711149011 Problem Attention deficit disorder F90.0 Act shalom 033723217 Problem PTSD (post-traumatic stress disorder) F43.10 Active 34807736 Problem Bipolar 2 disorder F31.81 Active 8 7225347 Problem Chronic post-traumatic stress disorder (PTSD) F43. 12 Active 232930527 Problem Other chronic pain G89.29 Active 8 4751398 Problem Lumbago with sciatica, left side M54.42 Active 944326884 Problem Lumbago with sciatica, right side M54.41 Active [id number] ALLERGIES No Information ENCOUNTERS Encounter Location Date Diagnosis [facility] [id number] [address] [place] [phone] Jan, [facility] [address] [id number] [address] [place] [address] Oct, Bipolar 2 disorder F31.81 [facility] [address] [id number] [address] [place] [address] Oct, Bipolar 2 disorder F31.81 ; Attention deficit disorder F90.0 ; Social anxiety disorder F40.10 and Chronic post-traumatic stress disorder (PTSD) F43.12 [facility] [id number] [place] [phone] Aug, Lumbago with sciatica, left side M54.42 and Lumbago with sciatica, right side M54.41 [facility] [id number] [address] [place] [address] Aug, Bipolar 2 disorder F31.81 [facility] [address] [address] Aug, Bipolar 2 disorder F31.81 [facility] [id number] [place] [phone] Aug, Bipolar 2 disorder F31.81 ; Attention deficit disorder F90.0 ; Social anxiety disorder F40.10 and PTSD (post-traumatic stress disorder) F43.10 [facility] [id number] [place] [address] Jul, [facility] [address] [address] Jun, Nasal congestion R09.81 ; Ac ping nonintractable headache, unspecified headache type R51 and Viral upper respiratory tract infection J06.9 [facility] [address] [address] Jun, [facility] [address] [address] May, [facility] [address] [address] May, [facility] [address] [address] May, Bipolar 2 disorder F31.81 ; Social anxiety disorder F40.10 ; Chronic post-traumatic stress disorder (PTSD) F43.12 ; Attention deficit disorder F90.0 and Encounter for immunization Z23 [facility] [address] [id number] [address] [place] [address] Apr, [facility] [address] [id number] [address] [place] [address] Apr, Body aches R52 and Acute chely opharyngitis J00 [facility] [address] [id number] 24 Mar, 2018 Pure hypercholesterolemia E7 8.00 and Exertional chest pain R07.9 [facility] [address] [id number] [address] [place] [id number] 21 Mar, 2018 Hyperlipidemia E78.5 ; Hyper tension I10 and Routine adult health maintenance Z00.00 [facility] [address] [id number] [address] [place] [id number] 20 Mar, 2018 Hypertension I10 ; Hyperlipi demia E78.5 ; Chest pain, exertional R07.9 and Routine adult health maintenance Z00.00 [facility] [address] [id number] [address] [place] [id number] 17 Mar, 2018 [facility] [address] [facility] [id number] [address] [place] [id number] Mar, Lumbago with sciatica, left side M54.42 and Lumbago with sciatica, right side M54.41 [facility] [address] [facility] [id number] [address] [place] [address] Jan, [facility] [address] [facility] [id number] [address] [place] [address] Dec, Bipolar 2 disorder F31.81 ; Social anxiety disorder F40.10 and Chronic post-traumatic stress disorder (PTSD) F43.12 [facility] [address] [facility] [id number] [address] [place] [address] Dec, [facility] [address] [facility] [id number] [address] [place] [address] Dec, [facility] [address] [id number] [address] [place] [address] Dec, Upper respiratory tract infe ction, unspecified type J06.9 [facility] [address] [facility] [id number] [address] [place] [address] October, [facility] [address] [id number] [address] [place] [address] Oct, Bipolar 2 disorder F31.81 ; Attention deficit disorder F90.0 ; Social anxiety disorder F40.10 and Chronic post-traumatic stress disorder (PTSD) F43.12 [facility] [address] [facility] [id number] [address] [place] [phone] Oct, [facility] [address] [facility] [id number] [address] [place] [address] Oct, [facility] [address] [facility] [id number] [address] [place] [address] Aug, [facility] [address] [facility] [id number] [address] [place] [address] Aug, [facility] [address] [id number] [address] [place] [address] Jul, Strain of lumbar region, ini tial encounter S39.012A [facility] [address] [facility] [id number] [address] [place] [address] Jul, Lumbago with sciatica, left side M54.42 and Lumbago with sciatica, right side M54.41 [facility] [address] [facility] [id number] [address] [place] [address] Jul, Low back pain M54.5 and Othe r chronic pain G89.29 [facility] [address] [facility] [id number] [address] [place] [address] Jul, [facility] [address] [facility] [id number] [address] [place] [id number] Jul, Bipolar 2 disorder F31.81 ; Attention deficit disorder F90.0 and Social anxiety disorder F40.10 [facility] [address] [facility] [id number] [address] [place] [phone] Jun, [facility] [address] [facility] [id number] [address] [place] [phone] May, [facility] [address] [id number] [address] [place] [address] Apr, Bipolar 2 disorder F31.81 ; Attention deficit disorder F90.0 ; Social anxiety disorder F40.10 and Chronic post-traumatic stress disorder (PTSD) F43.12 [facility] [address] [facility] [id number] [address] [place] [address] Apr, [facility] [address] [facility] [id number] [address] [place] [phone] Apr, Hyperlipidemia E78.5 [facility] [address] [facility] [id number] [address] [place] [address] Mar, Encounter for immunization Z 23 and Tinea cruris B35.6 [facility] [address] [facility] [id number] [address] [place] [address] Mar, [facility] [address] [facility] [id number] [address] [place] [id number] Jan, [facility] [address] [facility] [id number] [address] [place] [phone] Dec, [facility] [address] [facility] [id number] [address] [place] [id number] Dec, [facility] [address] [id number] [address] [place] [id number] Dec, Bipolar 2 disorder F31.81 ; Social anxiety disorder F40.10 and Attention deficit disorder F90.0 [facility] [address] [facility] [id number] [address] [place] [phone] Dec, [facility] [address] [facility] [id number] [address] [place] [address] Dec, Hypertension I10 [facility] [address] [facility] [id number] [address] [place] [phone] October, [facility] [address] [facility] [id number] [address] [place] [id number] Oct, [facility] [address] [facility] [id number] [address] [place] [address] Oct, Nasal congestion R09.81 [facility] [address] [id number] [address] [place] [address] Oct, Social anxiety disorder F40. 10 ; Bipolar 2 disorder F31.81 and Attention deficit disorder F90.0 [facility] [address] [id number] [address] [place] [phone] Aug, [facility] [address] [facility] [id number] [address] [place] [id number] Aug, [facility] [address] [facility] [id number] [address] [place] [address] Jul, Nasal congestion R09.81 [facility] [address] [facility] [id number] [address] [place] [address] Jul, [facility] [address] [facility] [id number] [address] [place] [phone] Jun, Bipolar 2 disorder F31.81 ; Attention deficit disorder F90.0 ; Social anxiety disorder F40.10 and Chronic post-traumatic stress disorder (PTSD) F43.12 [facility] [address] [facility] [id number] [address] [place] [phone] Jun, [facility] [address] [facility] [id number] [address] [place] [id number] May, [facility] [address] [id number] [address] [place] [id number] 14 Apr, 2016 Attention deficit disorder F 90.0 [facility] [address] [facility] [id number] [address] [place] [id number] 10 Apr, 2016 Urinary hesitancy R39.11 ; H yperlipidemia E78.5 and Encounter for immunization Z23 [facility] [address] [facility] [id number] [address] [place] [id number] 03 Apr, 2016 [facility] [address] [facility] [id number] [address] [place] [id number] 16 Mar, 2016 [facility] [address] [facility] [id number] [address] [place] [phone] Jan, [facility] [address] [facility] [id number] [address] [place] [phone] Dec, [facility] [address] [facility] [id number] [address] [place] [phone] Dec, [facility] [address] [id number] [address] [place] [address] Dec, Bipolar 2 disorder F31.81 ; Attention deficit disorder F90.0 ; Posttraumatic stress disorder F43.10 and Social anxiety disorder F40.10 [facility] [address] [facility] [id number] [address] [place] [address] Dec, Scabies exposure Z20.89 and Scabies B86 [facility] [address] [address] Dec, [facility] [address] [address] Dec, Hypertension I10 and Gastroe sophageal reflux disease without esophagitis K21.9 [facility] [id number] [place] [phone] October, [facility] [id number] [place] [phone] October, [facility] [id number] [place] [phone] Oct, Bipolar 2 disorder F31.81 ; Posttraumatic stress disorder F43.10 ; Attention deficit disorder F90.0 and Social anxiety disorder F40.10 [facility] [id number] [place] [address] Oct, [facility] [address] [facility] [id number] [address] [place] [id number] 07 Oct, 2015 Hypertension I10 and Nasal c ongestion R09.81 [facility] [address] [id number] [address] [place] [phone] Aug, [facility] [address] [facility] [id number] [address] [place] [phone] Aug, [facility] [address] [facility] [id number] [address] [place] [phone] Aug, [facility] [address] [facility] [id number] [address] [place] [id number] Aug, [facility] [address] [facility] [id number] [address] [place] [phone] Aug, [facility] [address] [facility] [id number] [address] [place] [id number] Aug, Hypertension I10 and Tremor R25.1 [facility] [address] [facility] [id number] [address] [place] [address] Aug, Bipolar 2 disorder F31.81 ; Posttraumatic stress disorder F43.10 ; Attention deficit disorder F90.0 and Social anxiety disorder F40.10 [facility] [address] [facility] [id number] [address] [place] [id number] Jul, [facility] [address] [facility] [id number] [address] [place] [address] Jul, Hyperlipidemia E78.5 [facility] [address] [facility] [id number] [address] [place] [address] Jul, Hypertension I10 and Hyperli pidemia E78.5 [facility] [address] [facility] [id number] [address] [place] [address] Jun, Bipolar 2 disorder F31.81 ; Posttraumatic stress disorder F43.10 ; Attention deficit disorder F90.0 and Social anxiety disorder F40.10 [facility] [address] [facility] [id number] [address] [place] [id number] May, [facility] [address] [facility] [id number] [address] [place] [id number] May, [facility] [address] [id number] [address] [place] [address] Apr, Bipolar 2 disorder F31.81 ; Posttraumatic stress disorder F43.10 ; Attention deficit disorder F90.0 and Social phobia F40.10 [facility] [address] [id number] [address] [place] [address] Apr, Bipolar 2 disorder F31.81 ; Posttraumatic stress disorder F43.10 and Attention deficit disorder F90.0 [facility] [address] [id number] [address] [place] [address] Apr, [facility] [address] [id number] [address] [place] [id number] Apr, [facility] [address] [facility] [id number] [address] [place] [phone] Apr, [facility] [address] [facility] [id number] [address] [place] [id number] Mar, [facility] [address] [id number] [address] [place] [address] Mar, [facility] [address] [facility] [id number] [address] [place] [address] Jan, [facility] [address] [facility] [id number] [address] [place] [address] Jan, [facility] [address] [facility] [id number] [address] [place] [id number] Jan, Bipolar II disorder 296.89 ; Posttraumatic stress disorder 309.81 ; Social phobia 300.23 and Attention deficit disorder of childhood without mention of hyperactivity 314.00 [facility] [address] [id number] [address] [place] [address] Jan, Other and unspecified bipola r disorders 296.89 ; Posttraumatic stress disorder 309.81 and Attention deficit disorder of childhood without mention of hyperactivity 314.00 [facility] [address] [facility] [id number] [address] [place] [phone] Jan, [facility] [address] [id number] [address] [place] [address] Dec, Other and unspecified bipola r disorders 296.89 ; Posttraumatic stress disorder 309.81 and Attention deficit disorder of childhood without mention of hyperactivity 314.00 [facility] [address] [id number] [address] [place] [address] Dec, Migraines 346.90 [facility] [address] [id number] [address] [place] [address] Dec, Other and unspecified bipola r disorders 296.89 ; Posttraumatic stress disorder 309.81 and Attention deficit disorder of childhood without mention of hyperactivity 314.00 [facility] [address] [id number] [address] [place] [address] Dec, [facility] [address] [facility] [id number] [address] [place] [address] Dec, Bipolar II disorder 296.89 ; Social phobia 300.23 ; Posttraumatic stress disorder 309.81 and Attention deficit disorder of childhood without mention of hyperactivity 314.00 [facility] [address] [facility] [id number] [address] [place] [address] Dec, Other and unspecified bipola r disorders 296.89 ; Posttraumatic stress disorder 309.81 and Attention deficit disorder of childhood without mention of hyperactivity 314.00 [facility] [address] [facility] [id number] [address] [place] [id number] October, Other and unspecified bipola r disorders 296.89 ; Posttraumatic stress disorder 309.81 and Attention deficit disorder of childhood without mention of hyperactivity 314.00 [facility] [address] [facility] [id number] [address] [place] [id number] October, [facility] [address] [id number] [address] [place] [address] October, [facility] [address] [facility] [id number] [address] [place] [phone] October, [facility] [address] [facility] [id number] [address] [place] [phone] October, [facility] [address] [id number] [address] [place] [address] October, Attention deficit disorder o f childhood without mention of hyperactivity 314.00 ; Posttraumatic stress disorder 309.81 ; Social phobia 300.23 and Other and unspecified bipolar disorders 296.89 [facility] [address] [id number] [address] [place] [phone] Oct, [facility] [address] [id number] [address] [place] [phone] Oct, [facility] [address] [id number] [address] [place] [phone] Aug, [facility] [address] [id number] [address] [place] [phone] Aug, [facility] [address] [id number] [address] [place] [phone] Aug, [facility] [address] [id number] [address] [place] [phone] Aug, [facility] [address] [id number] [address] [place] [phone] Aug, [facility] [address] [id number] [address] [place] [id number] Aug, [facility] [address] [id number] [address] [place] [phone] Aug, [facility] [address] [id number] [address] [place] [phone] Aug, [facility] [address] [id number] [address] [place] [phone] Aug, [facility] [address] [id number] [address] [place] [phone] Aug, [facility] [address] [id number] [address] [place] [phone] Aug, [facility] [address] [id number] [facility] [place] [address] 13 Aug, 2014 [facility] [address] [id number] [facility] [place] [address] Aug, [facility] [address] [id number] [address] [place] [address], [place] [address] Aug, [facility] [address] [id number] [address] [place] [address], [place] [address] Aug, [facility] [address] [id number] [address] [place] [address], [place] [id number] Aug, [facility] [address] [id number] [address] [place] [address], [place] [id number] Aug, [facility] [address] [id number] [address] [place] [address], [place] [id number] Aug, [facility] [address] [id number] [address] [place] [address], [place] [id number] Aug, [facility] [address] [id number] [address] [place] [address], [place] [id number] Aug, [facility] [address] [id number] [address] [place] [address], [place] [id number] Aug, [facility] [address] [id number] [address] [place] [address], [place] [id number] Aug, [facility] [address] [id number] [address] [place] [address], [place] [id number] Aug, [facility] [address] [id number] [address] [place] [address], [place] [id number] Aug, [facility] [address] [id number] [address] [place] [address], [place] [id number] Aug, [facility] [address] [id number] [address] [place] [address], [place] [id number] Aug, [facility] [address] [id number] [address] [place] [address], [place] [id number] Aug, [facility] [address] [id number] [address] [place] [address], [place] [id number] Aug, [facility] [address] [id number] [address] [place] [address], [place] [id number] Aug, [facility] [address] [id number] [address] [place] [address], [place] [id number] Aug, [facility] [address] [id number] [address] [place] [address], [place] [id number] Jul, [facility] [address] [id number] [address] [place] [address], [place] [id number] Jul, [facility] [address] [id number] [address] [place] [address], [place] [id number] Jul, [facility] [address] [id number] [address] [place] [address], [place] [id number] Jul, [facility] [address] [id number] [address] [place] [address], [place] [id number] Jul, [facility] [address] [id number] [address] [place] [address], [place] [id number] Jul, [facility] [address] [id number] [address] [place] [address], [place] [id number] Jul, [facility] [address] [id number] [address] [place] [address], [place] [id number] Jul, [facility] [address] [id number] [address] [place] [phone] Jun, [facility] [address] [id number] [address] [place] [address], [place] [phone] Jun, [facility] [address] [id number] [address] [place] [address], [place] [phone] Jun, [facility] [address] [id number] [address] [place] [address], [place] [phone] Jun, [facility] [address] [id number] [address] [place] [phone] May, [facility] [address] [id number] [address] [place] [phone] May, [facility] [address] [id number] [address] [place] [phone] May, [facility] [address] [id number] [address] [place] [phone] May, [facility] [address] [id number] [address] [place] [phone] May, [facility] [address] [id number] [address] [place] [phone] Apr, [facility] [address] [facility] [id number] [address] [place] [phone] Apr, IMMUNIZATIONS No Known Immunizations SOCIAL HISTORY Never Assessed [place] FOR [place] [place] V[place] SIGNS MEDICATIONS Unknown [...]
--- OUTSIDE RECORDS SUMMARY | 2019-11-11 19:10 | XMS REPORT ---
Author Author [facility] Address [address] [place] [address] Care Team Providers Care Intellectual Property Paralegal Name Role Phone GUILLERMO MCCORD Unavailable PROBLEMS Type Condition ICD9-CM Code [id number] Code Onset Dates Condition S tatus SNOMED Code Problem Social anxiety disorder F40.10 Active 52932929 Problem Hyperlipidemia E78.5 Active 44099 004 Problem Hypertension I10 Active 2989339 3 Problem Pure hypercholesterolemia E78.00 Acti ve 385197595 Problem Attention deficit disorder F90.0 Act shalom 613708162 Problem PTSD (post-traumatic stress disorder) F43.10 Active 20859886 Problem Bipolar 2 disorder F31.81 Active 8 2874197 Problem Chronic post-traumatic stress disorder (PTSD) F43. 12 Active 448974165 Problem Other chronic pain G89.29 Active 8 4522852 Problem Lumbago with sciatica, left side M54.42 Active 593718562 Problem Lumbago with sciatica, right side M54.41 Active [id number] ALLERGIES No Information ENCOUNTERS Encounter Location Date Diagnosis [facility] [address] [facility] [id number] [address] [place] [phone] Jan, [facility] [address] [facility] [id number] [address] [place] [phone] Dec, [facility] [address] [facility] [id number] [address] [place] [phone] Dec, Bipolar 2 disorder F31.81 [facility] [address] [facility] [id number] [address] [place] [phone] Oct, Bipolar 2 disorder F31.81 [facility] [address] [facility] [id number] [address] [place] [phone] Oct, Bipolar 2 disorder F31.81 ; Attention deficit disorder F90.0 ; Social anxiety disorder F40.10 and Chronic post-traumatic stress disorder (PTSD) F43.12 [facility] [address] [place] [id number] [place] [phone] Aug, Lumbago with sciatica, left side M54.42 and Lumbago with sciatica, right side M54.41 [facility] [address] [address] Aug, Bipolar 2 disorder F31.81 [facility] [address] [place] [id number] [place] [phone] Aug, Bipolar 2 disorder F31.81 [place] [address] [phone] Aug, Bipolar 2 disorder F31.81 ; Attention deficit disorder F90.0 ; Social anxiety disorder F40.10 and PTSD (post-traumatic stress disorder) F43.10 [facility] [address] [address] Jul, [facility] [address] [address] [id number] [place] [phone] Jun, Nasal congestion R09.81 ; Ac ping nonintractable headache, unspecified headache type R51 and Viral upper respiratory tract infection J06.9 [place] [address] [address] Jun, [facility] [address] [phone] May, [place] [address] [address] May, [place] [address] [address] May, Bipolar 2 disorder F31.81 ; Social anxiety disorder F40.10 ; Chronic post-traumatic stress disorder (PTSD) F43.12 ; Attention deficit disorder F90.0 and Encounter for immunization Z23 [facility] [address] [facility] [id number] [address] [place] [phone] Apr, [facility] [id number] [place] [phone] Apr, Body aches R52 and Acute chely opharyngitis J00 [facility] [address] [address] [id number] [place] [phone] 24 Mar, 2018 Pure hypercholesterolemia E7 8.00 and Exertional chest pain R07.9 [facility] [address] [facility] [id number] [place] [phone] Mar, Hyperlipidemia E78.5 ; Hyper tension I10 and Routine adult health maintenance Z00.00 [facility] [address] [id number] [place] [phone] 20 Mar, 2018 Hypertension I10 ; Hyperlipi demia E78.5 ; Chest pain, exertional R07.9 and Routine adult health maintenance Z00.00 [facility] [address] [phone] 17 Mar, 2018 [place] [address] [address] Mar, Lumbago with sciatica, left side M54.42 and Lumbago with sciatica, right side M54.41 [place] [address] [phone] Jan, [facility] [address] [address] Dec, Bipolar 2 disorder F31.81 ; Social anxiety disorder F40.10 and Chronic post-traumatic stress disorder (PTSD) F43.12 [place] [address] [place] [id number] [place] [phone] Dec, [facility] [address] [address] [id number] [place] [phone] Dec, [facility] [address] [place] [id number] [place] [phone] Dec, Upper respiratory tract infe ction, unspecified type J06.9 [facility] [address] [id number] [address] [place] [phone] October, [facility] [address] [id number] [address] [place] [phone] Oct, Bipolar 2 disorder F31.81 ; Attention deficit disorder F90.0 ; Social anxiety disorder F40.10 and Chronic post-traumatic stress disorder (PTSD) F43.12 [facility] [address] [id number] [address] [place] [phone] Oct, [facility] [address] [id number] [address] [place] [phone] Oct, [facility] [address] [id number] [address] [place] [phone] Aug, [facility] [address] [id number] [address] [place] [phone] Aug, [facility] [address] [id number] [address] [place] [phone] Jul, Strain of lumbar region, ini tial encounter S39.012A [facility] [address] [id number] [address] [place] [phone] Jul, Lumbago with sciatica, left side M54.42 and Lumbago with sciatica, right side M54.41 [facility] [address] [id number] [address] [place] [phone] Jul, Low back pain M54.5 and Othe r chronic pain G89.29 [facility] [address] [id number] [address] [place] [phone] Jul, [facility] [address] [facility] [id number] [address] [place] [phone] Jul, Bipolar 2 disorder F31.81 ; Attention deficit disorder F90.0 and Social anxiety disorder F40.10 [facility] [address] [facility] [id number] [address] [place] [phone] Jun, [facility] [address] [facility] [id number] [address] [place] [phone] May, [facility] [address] [facility] [id number] [address] [place] [phone] Apr, Bipolar 2 disorder F31.81 ; Attention deficit disorder F90.0 ; Social anxiety disorder F40.10 and Chronic post-traumatic stress disorder (PTSD) F43.12 [facility] [address] [facility] [id number] [address] [place] [phone] Apr, [facility] [address] [facility] [id number] [address] [place] [phone] Apr, Hyperlipidemia E78.5 [facility] [address] [facility] [id number] [address] [place] [phone] Mar, Encounter for immunization Z 23 and Tinea cruris B35.6 [facility] [address] [facility] [id number] [address] [place] [phone] Mar, [facility] [address] [facility] [id number] [address] [place] [phone] Jan, [facility] [address] [facility] [id number] [address] [place] [phone] Dec, [facility] [address] [facility] [id number] [address] [place] [phone] Dec, [facility] [address] [facility] [id number] [address] [place] [phone] Dec, Bipolar 2 disorder F31.81 ; Social anxiety disorder F40.10 and Attention deficit disorder F90.0 [facility] [address] [facility] [id number] [address] [place] [phone] Dec, [facility] [address] [facility] [id number] [address] [place] [phone] Dec, Hypertension I10 [facility] [address] [id number] [address] [place] [phone] October, [facility] [address] [id number] [address] [place] [phone] Oct, [facility] [address] [facility] [id number] [address] [place] [phone] Oct, Nasal congestion R09.81 [facility] [address] [id number] [address] [place] [phone] Oct, Social anxiety disorder F40. 10 ; Bipolar 2 disorder F31.81 and Attention deficit disorder F90.0 [facility] [address] [facility] [id number] [address] [place] [phone] Aug, [facility] [address] [facility] [id number] [address] [place] [phone] Aug, [facility] [address] [facility] [id number] [address] [place] [phone] Jul, Nasal congestion R09.81 [facility] [address] [facility] [id number] [address] [place] [phone] Jul, [facility] [address] [facility] [id number] [address] [place] [phone] Jun, Bipolar 2 disorder F31.81 ; Attention deficit disorder F90.0 ; Social anxiety disorder F40.10 and Chronic post-traumatic stress disorder (PTSD) F43.12 [facility] [address] [id number] [address] [place] [phone] Jun, [facility] [address] [facility] [id number] [address] [place] [phone] May, [facility] [address] [facility] [id number] [address] [place] [phone] 14 Apr, 2016 Attention deficit disorder F 90.0 [facility] [address] [facility] [id number] [address] [place] [phone] Apr, Urinary hesitancy R39.11 ; H yperlipidemia E78.5 and Encounter for immunization Z23 [facility] [address] [facility] [id number] [address] [place] [phone] Apr, [facility] [address] [facility] [id number] [address] [place] [phone] Mar, [facility] [address] [facility] [id number] [address] [place] [phone] Jan, [facility] [address] [facility] [id number] [address] [place] [phone] Dec, [facility] [address] [facility] [id number] [address] [place] [phone] Dec, [facility] [address] [facility] [id number] [address] [place] [phone] Dec, Bipolar 2 disorder F31.81 ; Attention deficit disorder F90.0 ; Posttraumatic stress disorder F43.10 and Social anxiety disorder F40.10 [facility] [address] [facility] [id number] [address] [place] [phone] Dec, Scabies exposure Z20.89 and Scabies B86 [facility] [address] [facility] [id number] [address] [place] [phone] Dec, [facility] [address] [facility] [id number] [address] [place] [phone] Dec, Hypertension I10 and Gastroe sophageal reflux disease without esophagitis K21.9 [facility] [address] [facility] [id number] [address] [place] [phone] October, [facility] [address] [facility] [id number] [address] [place] [phone] October, [facility] [address] [facility] [id number] [address] [place] [phone] Oct, Bipolar 2 disorder F31.81 ; Posttraumatic stress disorder F43.10 ; Attention deficit disorder F90.0 and Social anxiety disorder F40.10 [facility] [address] [facility] [id number] [address] [place] [phone] Oct, [facility] [address] [place] [id number] [place] [phone] Oct, Hypertension I10 and Nasal c ongestion R09.81 [facility] [address] [facility] [id number] [address] [place] [phone] Aug, [facility] [address] [facility] [id number] [place] [phone] Aug, [facility] [address] [phone] Aug, [facility] [address] [place] [id number] [place] [phone] Aug, [facility] [address] [address] Aug, [facility] [address] [place] [id number] [place] [phone] Aug, Hypertension I10 and Tremor R25.1 [facility] [address] [place] [id number] [place] [phone] Aug, Bipolar 2 disorder F31.81 ; Posttraumatic stress disorder F43.10 ; Attention deficit disorder F90.0 and Social anxiety disorder F40.10 [facility] [address] [place] [id number] [place] [phone] Jul, [facility] [address] [place] [id number] [place] [phone] Jul, Hyperlipidemia E78.5 [place] [address] [place] [id number] [place] [phone] Jul, Hypertension I10 and Hyperli pidemia E78.5 [facility] [address] [place] [id number] [place] [phone] Jun, Bipolar 2 disorder F31.81 ; Posttraumatic stress disorder F43.10 ; Attention deficit disorder F90.0 and Social anxiety disorder F40.10 [facility] [address] [id number] [address] [place] [phone] May, [facility] [address] [facility] [id number] [address] [place] [phone] May, [facility] [address] [facility] [id number] [address] [place] [phone] Apr, Bipolar 2 disorder F31.81 ; Posttraumatic stress disorder F43.10 ; Attention deficit disorder F90.0 and Social phobia F40.10 [facility] [address] [facility] [id number] [address] [place] [phone] Apr, Bipolar 2 disorder F31.81 ; Posttraumatic stress disorder F43.10 and Attention deficit disorder F90.0 [facility] [address] [facility] [id number] [address] [place] [phone] Apr, [facility] [address] [id number] [address] [place] [phone] Apr, [facility] [address] [facility] [id number] [address] [place] [phone] Apr, [facility] [address] [facility] [id number] [address] [place] [phone] Mar, [facility] [address] [facility] [id number] [address] [place] [phone] Mar, [facility] [address] [id number] [address] [place] [phone] Jan, [facility] [address] [facility] [id number] [address] [place] [phone] Jan, [facility] [address] [facility] [id number] [address] [place] [phone] Jan, Bipolar II disorder 296.89 ; Posttraumatic stress disorder 309.81 ; Social phobia 300.23 and Attention deficit disorder of childhood without mention of hyperactivity 314.00 [facility] [address] [facility] [id number] [address] [place] [phone] Jan, Other and unspecified bipola r disorders 296.89 ; Posttraumatic stress disorder 309.81 and Attention deficit disorder of childhood without mention of hyperactivity 314.00 [facility] [address] [facility] [id number] [address] [place] [phone] Jan, [facility] [address] [facility] [id number] [address] [place] [phone] Dec, Other and unspecified bipola r disorders 296.89 ; Posttraumatic stress disorder 309.81 and Attention deficit disorder of childhood without mention of hyperactivity 314.00 [facility] [address] [facility] [id number] [address] [place] [phone] Dec, Migraines 346.90 [facility] [address] [facility] [id number] [address] [place] [phone] Dec, Other and unspecified bipola r disorders 296.89 ; Posttraumatic stress disorder 309.81 and Attention deficit disorder of childhood without mention of hyperactivity 314.00 [facility] [address] [facility] [id number] [address] [place] [phone] Dec, [facility] [address] [facility] [id number] [address] [place] [phone] Dec, Bipolar II disorder 296.89 ; Social phobia 300.23 ; Posttraumatic stress disorder 309.81 and Attention deficit disorder of childhood without mention of hyperactivity 314.00 [facility] [address] [facility] [id number] [address] [place] [phone] Dec, Other and unspecified bipola r disorders 296.89 ; Posttraumatic stress disorder 309.81 and Attention deficit disorder of childhood without mention of hyperactivity 314.00 [facility] [address] [facility] [id number] [address] [place] [phone] October, Other and unspecified bipola r disorders 296.89 ; Posttraumatic stress disorder 309.81 and Attention deficit disorder of childhood without mention of hyperactivity 314.00 [facility] [address] [facility] [id number] [address] [place] [phone] October, [facility] [address] [id number] [address] [place] [phone] October, [facility] [address] [id number] [address] [place] [phone] October, [facility] [address] [id number] [address] [place] [phone] October, [facility] [address] [facility] [id number] [address] [place] [phone] October, Attention deficit disorder o f childhood without mention of hyperactivity 314.00 ; Posttraumatic stress disorder 309.81 ; Social phobia 300.23 and Other and unspecified bipolar disorders 296.89 [facility] [address] [id number] [address] [place] [phone] Oct, [facility] [address] [facility] [id number] [address] [place] [phone] Oct, [facility] [address] [id number] [address] [place] [phone] Aug, [facility] [address] [id number] [address] [place] [id number] Aug, [facility] [address] [id number] [address] [place] [id number] Aug, [facility] [address] [id number] [address] [place] [phone] Aug, [facility] [address] [id number] [address] [place] [id number] Aug, [facility] [address] [id number] [address] [place] [phone] Aug, [facility] [address] [id number] [address] [place] [phone] Aug, [facility] [address] [id number] [address] [place] [phone] Aug, [facility] [address] [id number] [address] [place] [id number] 17 Aug, 2014 [facility] [address] [id number] [address] [place] [id number] 17 Aug, 2014 [facility] [address] [id number] [address] [place] [id number] 13 Aug, 2014 [facility] [address] [id number] [address] [place] [id number] 13 Aug, 2014 [facility] [address] [id number] [facility] [place] [address] 12 Aug, 2014 [facility] [address] [id number] [address] [place] [address], [place] [id number] 12 Aug, 2014 [facility] [address] [id number] [address] [place] [address], [place] [id number] 12 Aug, 2014 [facility] [address] [id number] [address] [place] [address], [place] [id number] 12 Aug, 2014 [facility] [address] [id number] [address] [place] [address], [place] [id number] Aug, [facility] [address] [id number] [address] [place] [address], [place] [id number] 12 Aug, 2014 [facility] [address] [id number] [address] [place] [address], [place] [id number] Aug, [facility] [address] [id number] [address] [place] [address], [place] [id number] Aug, [facility] [address] [id number] [address] [place] [address], [place] [id number] 04 Aug, 2014 [facility] [address] [id number] [address] [place] [address], [place] [id number] 04 Aug, 2014 [facility] [address] [id number] [address] [place] [address], [place] [id number] 03 Aug, 2014 [facility] [address] [id number] [address] [place] [address], [place] [id number] Aug, [facility] [address] [id number] [address] [place] [address], [place] [id number] Aug, [facility] [address] [id number] [address] [place] [address], [place] [id number] Aug, [facility] [address] [id number] [address] [place] [address], [place] [id number] Aug, [facility] [address] [id number] [address] [place] [address], [place] [id number] Aug, [facility] [address] [id number] [address] [place] [address], [place] [id number] Aug, [facility] [address] [id number] [address] [place] [address], [place] [id number] Aug, [facility] [address] [id number] [address] [place] [address], [place] [id number] Jul, [facility] [address] [id number] [address] [place] [address], [place] [id number] Jul, [facility] [address] [id number] [address] [place] [address], [place] [id number] Jul, [facility] [address] [id number] [address] [place] [address], [place] [id number] Jul, [facility] [address] [id number] [address] [place] [address], [place] [id number] Jul, [facility] [address] [id number] [address] [place] [id number] Jul, [facility] [address] [id number] [address] [place] [address], [place] [id number] Jul, [facility] [address] [id number] [address] [place] [address], [place] [id number] Jul, [facility] [address] [id number] [address] [place] [address], [place] [id number] Jun, [facility] [address] [id number] [address] [place] [id number] Jun, [facility] [address] [id number] [address] [place] [id number] Jun, [facility] [address] [id number] [address] [place] [id number] Jun, [facility] [address] [id number] [address] [place] [phone] May, [facility] [address] [id number] [address] [place] [id number] May, [facility] [address] [id number] [address] [place] [id number] May, [facility] [address] [id number] [address] [place] [phone] May, [facility] [address] [id number] [address] [place] [id number] May, [facility] [address] [id number] [address] [place] [phone] Apr, [facility] [address] [id number] [address] [place] [id number] Apr, IMMUNIZATIONS No Known Immunizations SOCIAL HISTORY [...]
--- OUTSIDE RECORDS SUMMARY | 2019-11-11 19:11 | XMS REPORT ---
Author Author [place] Organization [facility] Address [address] [place] [address] Care Team Providers Care Data Collection Technician Name Role Phone F[place]ON JOHNSON Unavailable PROBLEMS Type Condition ICD9-CM Code [id number] Code Onset Dates Condition S tatus SNOMED Code Problem Hypertension I10 Active 8421483 3 Problem Gastroesophageal reflux disease without esophagitis K21.9 Active 575889242 Problem Hyperlipidemia E78.5 Active 78650 004 Problem Posttraumatic stress disorder F43.10 Active 24511445 Problem Bipolar 2 disorder F31.81 Active 8 0478814 Problem Attention deficit disorder F90.0 Act shalom 585466551 Problem Social anxiety disorder F40.10 Active 32988956 Problem Pure hypercholesterolemia E78.00 Acti ve 831134610 Problem Lumbago with sciatica, right side M54.41 Active 684306509124201 Problem Chronic post-traumatic stress disorder (PTSD) F43. 12 Active 618265832 Problem Urinary hesitancy R39.11 Active 59 87438 Problem Lumbago with sciatica, left side M54.42 Active 320658988 Problem Other chronic pain G89.29 Active 8 5262008 ALLERGIES Substance Reaction Event Type Date Status Codeine Sulfate disoriented Drug Allergy Mar, Active ENCOUNTERS Encounter Location Date Diagnosis [facility] [address] [facility] [id number] [address] [place] [phone] May, [facility] [address] [facility] [id number] [address] [place] [address] Apr, Body aches R52 and Acute chely opharyngitis J00 [facility] [address] [place] [id number] [address] [place] [address] 24 Mar, 2018 Pure hypercholesterolemia E7 8.00 and Exertional chest pain R07.9 [facility] [address] [facility] [id number] [address] [place] [id number] 21 Mar, 2018 Hyperlipidemia E78.5 ; Hyper tension I10 and Routine adult health maintenance Z00.00 [facility] [address] [id number] [address] [place] [id number] 20 Mar, 2018 Hypertension I10 ; Hyperlipi demia E78.5 ; Chest pain, exertional R07.9 and Routine adult health maintenance Z00.00 [facility] [address] [id number] [address] [place] [id number] 17 Mar, 2018 [facility] [address] [id number] [address] [place] [address] Mar, Lumbago with sciatica, left side M54.42 and Lumbago with sciatica, right side M54.41 [facility] [address] [id number] [address] [place] [address] Jan, [facility] [address] [facility] [id number] [address] [place] [address] Dec, Bipolar 2 disorder F31.81 ; Social anxiety disorder F40.10 and Chronic post-traumatic stress disorder (PTSD) F43.12 [facility] [address] [facility] [id number] [address] [place] [address] Dec, [facility] [address] [facility] [id number] [address] [place] [address] Dec, [facility] [address] [facility] [id number] [address] [place] [address] Dec, Upper respiratory tract infe ction, unspecified type J06.9 [facility] [address] [id number] [address] [place] [address] October, [facility] [address] [facility] [id number] [address] [place] [address] Oct, Bipolar 2 disorder F31.81 ; Attention deficit disorder F90.0 ; Social anxiety disorder F40.10 and Chronic post-traumatic stress disorder (PTSD) F43.12 [facility] [address] [facility] [id number] [address] [place] [address] Oct, [facility] [address] [id number] [address] [place] [address] Oct, [facility] [address] [facility] [id number] [address] [place] [address] Aug, [facility] [address] [facility] [id number] [address] [place] [address] Aug, [facility] [address] [facility] [id number] [address] [place] [address] Jul, Strain of lumbar region, ini tial encounter S39.012A [facility] [address] [facility] [id number] [address] [place] [address] Jul, Lumbago with sciatica, left side M54.42 and Lumbago with sciatica, right side M54.41 [facility] [address] [facility] [id number] [address] [place] [address] Jul, Low back pain M54.5 and Othe r chronic pain G89.29 [facility] [address] [facility] [id number] [address] [place] [address] Jul, [facility] [address] [facility] [id number] [address] [place] [address] Jul, Bipolar 2 disorder F31.81 ; Attention deficit disorder F90.0 and Social anxiety disorder F40.10 [facility] [address] [facility] [id number] [address] [place] [address] Jun, [facility] [address] [facility] [id number] [address] [place] [address] May, [facility] [address] [facility] [id number] [address] [place] [address] Apr, Bipolar 2 disorder F31.81 ; Attention deficit disorder F90.0 ; Social anxiety disorder F40.10 and Chronic post-traumatic stress disorder (PTSD) F43.12 [place] [address] [facility] [id number] [address] [place] [address] 13 Apr, 2017 [facility] [address] [facility] [id number] [address] [place] [address] Apr, Hyperlipidemia E78.5 [facility] [address] [facility] [id number] [address] [place] [address] 27 Mar, 2017 Encounter for immunization Z 23 and Tinea cruris B35.6 [facility] [address] [facility] [id number] [address] [place] [address] 15 Mar, 2017 [facility] [address] [facility] [id number] [address] [place] [address] Jan, [facility] [address] [facility] [id number] [address] [place] [address] Dec, [facility] [address] [facility] [id number] [address] [place] [address] Dec, [facility] [address] [facility] [id number] [address] [place] [address] Dec, Bipolar 2 disorder F31.81 ; Social anxiety disorder F40.10 and Attention deficit disorder F90.0 [facility] [address] [facility] [id number] [address] [place] [address] Dec, [facility] [address] [facility] [id number] [address] [place] [address] Dec, Hypertension I10 [facility] [address] [facility] [id number] [address] [place] [phone] October, [facility] [address] [facility] [id number] [address] [place] [address] Oct, [facility] [address] [place] [id number] [address] [place] [address] Oct, Nasal congestion R09.81 [facility] [address] [facility] [id number] [address] [place] [address] Oct, Social anxiety disorder F40. 10 ; Bipolar 2 disorder F31.81 and Attention deficit disorder F90.0 [facility] [address] [id number] [address] [place] [address] Aug, [facility] [address] [facility] [id number] [address] [place] [address] Aug, [facility] [address] [facility] [id number] [address] [place] [address] Jul, Nasal congestion R09.81 [facility] [address] [id number] [address] [place] [phone] Jul, [facility] [address] [facility] [id number] [address] [place] [address] Jun, Bipolar 2 disorder F31.81 ; Attention deficit disorder F90.0 ; Social anxiety disorder F40.10 and Chronic post-traumatic stress disorder (PTSD) F43.12 [facility] [address] [facility] [id number] [address] [place] [address] Jun, [facility] [address] [facility] [id number] [address] [place] [address] May, [facility] [address] [facility] [id number] [address] [place] [address] 14 Apr, 2016 Attention deficit disorder F 90.0 [facility] [address] [facility] [id number] [address] [place] [address] 10 Apr, 2016 Urinary hesitancy R39.11 ; H yperlipidemia E78.5 and Encounter for immunization Z23 [facility] [address] [facility] [id number] [address] [place] [address] Apr, [facility] [address] [facility] [id number] [address] [place] [address] Mar, [facility] [address] [facility] [id number] [address] [place] [address] Jan, [facility] [address] [facility] [id number] [address] [place] [address] Dec, [facility] [address] [facility] [id number] [address] [place] [address] Dec, [facility] [address] [facility] [id number] [address] [place] [address] Dec, Bipolar 2 disorder F31.81 ; Attention deficit disorder F90.0 ; Posttraumatic stress disorder F43.10 and Social anxiety disorder F40.10 [facility] [address] [facility] [id number] [address] [place] [address] Dec, Scabies exposure Z20.89 and Scabies B86 [facility] [address] [facility] [id number] [address] [place] [address] Dec, [facility] [address] [facility] [id number] [address] [place] [address] Dec, Hypertension I10 and Gastroe sophageal reflux disease without esophagitis K21.9 [facility] [address] [facility] [id number] [address] [place] [address] October, [facility] [address] [facility] [id number] [address] [place] [address] October, [facility] [address] [facility] [id number] [address] [place] [address] Oct, Bipolar 2 disorder F31.81 ; Posttraumatic stress disorder F43.10 ; Attention deficit disorder F90.0 and Social anxiety disorder F40.10 [facility] [address] [facility] [id number] [address] [place] [address] Oct, [facility] [address] [facility] [id number] [address] [place] [address] Oct, Hypertension I10 and Nasal c ongestion R09.81 [facility] [address] [facility] [id number] [address] [place] [address] Aug, [facility] [address] [place] [id number] [address] [place] [address] Aug, [facility] [address] [facility] [id number] [address] [place] [address] Aug, [facility] [address] [facility] [id number] [address] [place] [address] Aug, [facility] [address] [facility] [id number] [address] [place] [address] Aug, [facility] [address] [facility] [id number] [address] [place] [address] Aug, Hypertension I10 and Tremor R25.1 [facility] [address] [facility] [id number] [address] [place] [address] Aug, Bipolar 2 disorder F31.81 ; Posttraumatic stress disorder F43.10 ; Attention deficit disorder F90.0 and Social anxiety disorder F40.10 [facility] [address] [place] [id number] [address] [place] [address] Jul, [facility] [address] [facility] [id number] [address] [place] [address] Jul, Hyperlipidemia E78.5 [facility] [address] [place] [id number] [address] [place] [address] Jul, Hypertension I10 and Hyperli pidemia E78.5 [facility] [address] [facility] [id number] [address] [place] [address] Jun, Bipolar 2 disorder F31.81 ; Posttraumatic stress disorder F43.10 ; Attention deficit disorder F90.0 and Social anxiety disorder F40.10 [facility] [address] [facility] [id number] [address] [place] [address] May, [facility] [address] [facility] [id number] [address] [place] [address] May, [facility] [address] [facility] [id number] [address] [place] [address] Apr, Bipolar 2 disorder F31.81 ; Posttraumatic stress disorder F43.10 ; Attention deficit disorder F90.0 and Social phobia F40.10 [facility] [address] [id number] [address] [place] [address] Apr, Bipolar 2 disorder F31.81 ; Posttraumatic stress disorder F43.10 and Attention deficit disorder F90.0 [facility] [address] [id number] [address] [place] [address] Apr, [facility] [address] [id number] [address] [place] [address] Apr, [facility] [address] [id number] [address] [place] [address] Apr, [facility] [address] [id number] [address] [place] [address] Mar, [facility] [address] [facility] [id number] [address] [place] [address] Mar, [facility] [address] [facility] [id number] [address] [place] [address] Jan, [facility] [address] [id number] [address] [place] [address] Jan, [facility] [address] [id number] [address] [place] [address] Jan, Bipolar II disorder 296.89 ; Posttraumatic stress disorder 309.81 ; Social phobia 300.23 and Attention deficit disorder of childhood without mention of hyperactivity 314.00 [facility] [address] [facility] [id number] [address] [place] [phone] Jan, Other and unspecified bipola r disorders 296.89 ; Posttraumatic stress disorder 309.81 and Attention deficit disorder of childhood without mention of hyperactivity 314.00 [facility] [address] [id number] [address] [place] [address] Jan, [facility] [address] [facility] [id number] [address] [place] [address] Dec, Other and unspecified bipola r disorders 296.89 ; Posttraumatic stress disorder 309.81 and Attention deficit disorder of childhood without mention of hyperactivity 314.00 [facility] [address] [id number] [address] [place] [address] Dec, Migraines 346.90 [facility] [address] [facility] [id number] [address] [place] [address] Dec, Other and unspecified bipola r disorders 296.89 ; Posttraumatic stress disorder 309.81 and Attention deficit disorder of childhood without mention of hyperactivity 314.00 [facility] [address] [facility] [id number] [address] [place] [address] Dec, [facility] [address] [facility] [id number] [address] [place] [address] Dec, Bipolar II disorder 296.89 ; Social phobia 300.23 ; Posttraumatic stress disorder 309.81 and Attention deficit disorder of childhood without mention of hyperactivity 314.00 [facility] [address] [facility] [id number] [address] [place] [address] Dec, Other and unspecified bipola r disorders 296.89 ; Posttraumatic stress disorder 309.81 and Attention deficit disorder of childhood without mention of hyperactivity 314.00 [facility] [address] [facility] [id number] [address] [place] [address] October, Other and unspecified bipola r disorders 296.89 ; Posttraumatic stress disorder 309.81 and Attention deficit disorder of childhood without mention of hyperactivity 314.00 [facility] [address] [facility] [id number] [address] [place] [address] October, [facility] [address] [id number] [address] [place] [address] October, [facility] [address] [id number] [address] [place] [address] October, [facility] [address] [facility] [id number] [address] [place] [address] October, [facility] [address] [facility] [id number] [address] [place] [address] October, Attention deficit disorder o f childhood without mention of hyperactivity 314.00 ; Posttraumatic stress disorder 309.81 ; Social phobia 300.23 and Other and unspecified bipolar disorders 296.89 [facility] [address] [id number] [address] [place] [address] 14 Oct, 2014 [facility] [address] [id number] [address] [place] [address] Oct, [facility] [address] [id number] [address] [place] [address] 26 Aug, 2014 [facility] [address] [id number] [address] [place] [address] Aug, [facility] [address] [id number] [address] [place] [address] 24 Aug, 2014 [facility] [address] [id number] [address] [place] [address] 24 Aug, 2014 [facility] [address] [id number] [address] [place] [address] 17 Aug, 2014 [facility] [address] [id number] [address] [place] [address] Aug, [facility] [address] [id number] [address] [place] [address] Aug, [facility] [address] [id number] [address] [place] [address] 17 Aug, 2014 [facility] [address] [id number] [address] [place] [id number] 17 Aug, 2014 [facility] [address] [id number] [address] [place] [address] 17 Aug, 2014 [facility] [address] [id number] [address] [place] [address] Aug, [facility] [address] [id number] [address] [place] [phone] Aug, [facility] [address] [id number] [address] [place] [id number] Aug, [facility] [address] [id number] [address] [place] [address], [place] [address] Aug, [facility] [address] [id number] [address] [place] [address], [place] [address] Aug, [facility] [address] [id number] [address] [place] [address], [place] [address] Aug, [facility] [address] [id number] [address] [place] [address], [place] [address] Aug, [facility] [address] [id number] [address] [place] [address], [place] [address] Aug, [facility] [address] [id number] [address] [place] [address], [place] [address] Aug, [facility] [address] [id number] [address] [place] [address], [place] [address] Aug, [facility] [address] [id number] [address] [place] [address], [place] [address] Aug, [facility] [address] [id number] [address] [place] [address], [place] [address] Aug, [facility] [address] [id number] [address] [place] [address], [place] [address] Aug, [facility] [address] [id number] [address] [place] [address], [place] [address] Aug, [facility] [address] [id number] [address] [place] [address], [place] [address] Aug, [facility] [address] [id number] [address] [place] [address], [place] [address] Aug, [facility] [address] [id number] [address] [place] [address], [place] [address] Aug, [facility] [facility] [address] [id number] [address] [place] [address], [place] [address] Aug, [facility] [facility] [address] [id number] [address] [place] [address], [place] [address] Aug, [facility] [address] [id number] [address] [place] [address], [place] [address] Aug, [facility] [address] [id number] [address] [place] [address], [place] [address] Jul, [facility] [address] [id number] [address] [place] [address], [place] [address] Jul, [facility] [address] [id number] [address] [place] [address], [place] [address] Jul, [facility] [address] [id number] [address] [place] [address], [place] [address] Jul, [facility] [address] [id number] [address] [place] [address], [place] [address] Jul, [facility] [address] [id number] [address] [place] [address], [place] [address] Jul, [facility] [address] [id number] [address] [place] [address], [place] [address] Jul, [facility] [address] [id number] [address] [place] [address], [place] [address] Jul, [facility] [address] [id number] [address] [place] [address], [place] [address] Jun, [facility] [address] [id number] [address] [place] [address], [place] [address] Jun, [facility] [address] [id number] [address] [place] [address], [place] [address] Jun, [facility] [address] [id number] [address] [place] [address], [place] [address] Jun, [facility] [address] [id number] [address] [place] [address], [place] [address] May, [facility] [address] [id number] [address] [address] May, [facility] [address] [facility] [id number] [address] [place] [address] May, [facility] [address] [id number] [address] [place] [address] May, [facility] [address] [facility] [id number] [address] [place] [address] May, [facility] [address] [facility] [id number] [address] [place] [id number] Apr, [facility] [address] [facility] [id number] [address] [place] [address] Apr, IMMUNIZATIONS No Known Immunizations SOCIAL HISTORY Never Assessed REASON FOR VISIT wanting blood work / annual check up [employer] Activity Details Follow Up 3 Months Reason: VITAL SIGNS Height 64 in 2018-03-22 Weight 150 lbs 2018-03-22 Temperature 97.4 degrees Fahrenheit 2018-03-22 Heart Rate 103 bpm 2018-03-22 Respiratory Rate 20 2018-03-22 BMI 25.74 kg/m2 2018-03-22 Blood pressure systolic 128 mmHg 2018-03-22 Blood pressure diastolic 78 mmHg 2018-03-22 MEDICATIONS Medication Instructions Dosage Frequency Start Date End Date Duration S tatus Vitamin C 500 mg 1 tablet by Oral route 1 time per day 3 0 Apr, 2014 Active Multivitamin 1 tablet by Oral route 1 time per day 30 Oc 2013 Active Aspirin 325 mg 1 tablet by Oral route 1 time per day Apr, Active Atorvastatin Calcium 20 MG TAKE ONE TABL ET BY MOUTH ONCE DAILY (MUST HAVE APPOINTMENT FOR REFILL) 30 Acti ve Cyclobenzaprine HCl 10 mg Orally Three times a day 1 tablet as need ed 8h Mar, Apr, 30 days Not-Taking Omeprazole 20 MG TAKE ONE CAPSULE BY MOUTH ONCE DAILY 30 Active Lamotrigine 200 MG TAKE ONE TABLET BY M OUTH ONCE DAILY IN THE EVENING FOR DEPRESSION 30 Active Vitamin D3 5000 UNIT Orally Once a day 1 capsule 24h 30 Apr, 2014 Active Vyvanse 30 MG Orally Once a day for ADHD 1 capsule in the morning Mar, 28 days Active Lisinopril 20 MG TAKE ONE TABLET BY MOUTH ONCE DAILY 30 Active RESULTS No Results PROCEDURES No Known procedures INSTRUCTIONS MEDICATIONS ADMINISTERED No Known Medications MEDICAL (GENERAL) HISTORY Type Description Date Medical History Hypertension Medical History GERD Medical History Bipolar Surgical History Hernia right ingual Surgical History Colonoscopy october 2014 Hospitalization History surgeries Hospitalization History [facility] for [facility] and vom[facility] 10/04/15
--- OUTSIDE RECORDS SUMMARY | 2019-11-11 19:11 | XMS REPORT ---
Author Author [place] Organization [facility] Address [address] [place] [address] Care Team Providers [employer] Name Role Phone ERASTO ARRIAGA Unavailable PROBLEMS Type Condition ICD9-CM Code [id number] Code Onset Dates Condition S tatus SNOMED Code Problem Hypertension I10 Active 7042319 3 Problem Gastroesophageal reflux disease without esophagitis K21.9 Active 371980969 Problem Hyperlipidemia E78.5 Active 17296 004 Problem Posttraumatic stress disorder F43.10 Active 29091018 Problem Bipolar 2 disorder F31.81 Active 8 4559387 Problem Attention deficit disorder F90.0 Act shalom 509182557 Problem Social anxiety disorder F40.10 Active 37523300 Problem Pure hypercholesterolemia E78.00 Acti ve 958513663 Problem Lumbago with sciatica, right side M54.41 Active 599118599552110 Problem Chronic post-traumatic stress disorder (PTSD) F43. 12 Active 185922600 Problem Urinary hesitancy R39.11 Active 59 34428 Problem Lumbago with sciatica, left side M54.42 Active 201455039 Problem Other chronic pain G89.29 Active 8 5118678 ALLERGIES Substance Reaction Event Type Date Status Codeine Sulfate disoriented Drug Allergy Mar, Active ENCOUNTERS Encounter Location Date Diagnosis [facility] [address] [facility] [id number] [address] [place] [address] May, [facility] [address] [facility] [id number] [address] [place] [address] Mar, Pure hypercholesterolemia E7 8.00 and Exertional chest pain R07.9 [facility] [address] [facility] [id number] [address] [place] [address] Mar, Hyperlipidemia E78.5 ; Hyper tension I10 and Routine adult health maintenance Z00.00 [facility] [address] [facility] [id number] [address] [place] [address] Mar, Hypertension I10 ; Hyperlipi demia E78.5 ; Chest pain, exertional R07.9 and Routine adult health maintenance Z00.00 [facility] [address] [facility] [id number] [address] [place] [address] Mar, [facility] [address] [facility] [id number] [address] [place] [address] Mar, Lumbago with sciatica, left side M54.42 and Lumbago with sciatica, right side M54.41 [facility] [address] [facility] [id number] [address] [place] [address] Jan, [facility] [address] [place] [id number] [place] [address] Dec, Bipolar 2 disorder F31.81 ; Social anxiety disorder F40.10 and Chronic post-traumatic stress disorder (PTSD) F43.12 [facility] [address] [place] [place] [id number] [address] [place] [address] Dec, [facility] [address] [facility] [id number] [address] [place] [address] Dec, [facility] [address] [facility] [id number] [address] [place] [address] Dec, Upper respiratory tract infe ction, unspecified type J06.9 [facility] [address] [id number] [address] [place] [address] October, [facility] [address] [facility] [id number] [address] [place] [address] Oct, Bipolar 2 disorder F31.81 ; Attention deficit disorder F90.0 ; Social anxiety disorder F40.10 and Chronic post-traumatic stress disorder (PTSD) F43.12 [facility] [address] [facility] [id number] [address] [place] [address] Oct, [facility] [address] [id number] [address] [place] [address] Oct, [facility] [address] [id number] [address] [place] [address] Aug, [facility] [address] [id number] [address] [place] [address] Aug, [facility] [address] [id number] [address] [place] [address] Jul, Strain of lumbar region, ini tial encounter S39.012A [facility] [address] [id number] [address] [place] [address] Jul, Lumbago with sciatica, left side M54.42 and Lumbago with sciatica, right side M54.41 [facility] [address] [id number] [address] [place] [address] Jul, Low back pain M54.5 and Othe r chronic pain G89.29 [facility] [address] [id number] [address] [place] [address] Jul, [facility] [address] [id number] [address] [place] [address] Jul, Bipolar 2 disorder F31.81 ; Attention deficit disorder F90.0 and Social anxiety disorder F40.10 [facility] [address] [id number] [address] [place] [address] Jun, [facility] [address] [id number] [address] [place] [address] May, [facility] [address] [id number] [address] [place] [address] Apr, Bipolar 2 disorder F31.81 ; Attention deficit disorder F90.0 ; Social anxiety disorder F40.10 and Chronic post-traumatic stress disorder (PTSD) F43.12 [facility] [address] [id number] [address] [place] [address] 13 Apr, 2017 [facility] [address] [facility] [id number] [address] [place] [address] Apr, Hyperlipidemia E78.5 [facility] [address] [facility] [id number] [address] [place] [address] Mar, Encounter for immunization Z 23 and Tinea cruris B35.6 [facility] [address] [facility] [id number] [address] [place] [address] Mar, [facility] [address] [facility] [id number] [address] [place] [address] Jan, [facility] [address] [facility] [id number] [address] [place] [address] Dec, [facility] [address] [facility] [id number] [address] [place] [address] Dec, [facility] [address] [facility] [id number] [address] [place] [address] Dec, Bipolar 2 disorder F31.81 ; Social anxiety disorder F40.10 and Attention deficit disorder F90.0 [facility] [address] [facility] [id number] [address] [place] [address] Dec, [facility] [address] [facility] [id number] [address] [place] [address] Dec, Hypertension I10 [facility] [address] [facility] [id number] [address] [place] [address] October, [facility] [address] [facility] [id number] [address] [place] [address] Oct, [facility] [address] [facility] [id number] [address] [place] [address] Oct, Nasal congestion R09.81 [facility] [address] [facility] [id number] [address] [place] [address] Oct, Social anxiety disorder F40. 10 ; Bipolar 2 disorder F31.81 and Attention deficit disorder F90.0 [facility] [address] [facility] [id number] [address] [place] [address] Aug, [facility] [address] [facility] [id number] [address] [place] [address] Aug, [facility] [address] [id number] [address] [place] [address] Jul, Nasal congestion R09.81 [facility] [address] [id number] [address] [place] [address] Jul, [facility] [address] [id number] [address] [place] [address] Jun, Bipolar 2 disorder F31.81 ; Attention deficit disorder F90.0 ; Social anxiety disorder F40.10 and Chronic post-traumatic stress disorder (PTSD) F43.12 [facility] [address] [id number] [address] [place] [address] Jun, [facility] [address] [address] May, [facility] [address] [address] [id number] [place] [address] 14 Apr, 2016 Attention deficit disorder F 90.0 [facility] [id number] [place] [address] Apr, Urinary hesitancy R39.11 ; H yperlipidemia E78.5 and Encounter for immunization Z23 [facility] [address] [id number] [address] [place] [address] Apr, [facility] [address] [id number] [address] [place] [address] Mar, [facility] [address] [id number] [address] [place] [address] Jan, [facility] [address] [id number] [address] [place] [address] Dec, [facility] [address] [id number] [address] [place] [address] Dec, [facility] [address] [facility] [id number] [address] [place] [address] Dec, Bipolar 2 disorder F31.81 ; Attention deficit disorder F90.0 ; Posttraumatic stress disorder F43.10 and Social anxiety disorder F40.10 [facility] [address] [facility] [id number] [address] [place] [address] Dec, Scabies exposure Z20.89 and Scabies B86 [facility] [address] [facility] [id number] [address] [place] [address] Dec, [facility] [address] [facility] [id number] [address] [place] [address] Dec, Hypertension I10 and Gastroe sophageal reflux disease without esophagitis K21.9 [facility] [address] [facility] [id number] [address] [place] [address] October, [facility] [address] [facility] [id number] [address] [place] [address] October, [facility] [address] [facility] [id number] [address] [place] [address] Oct, Bipolar 2 disorder F31.81 ; Posttraumatic stress disorder F43.10 ; Attention deficit disorder F90.0 and Social anxiety disorder F40.10 [facility] [address] [facility] [id number] [address] [place] [address] Oct, [facility] [address] [facility] [id number] [address] [place] [address] Oct, Hypertension I10 and Nasal c ongestion R09.81 [facility] [address] [facility] [id number] [address] [place] [address] Aug, [facility] [address] [facility] [id number] [address] [place] [address] Aug, [facility] [address] [facility] [id number] [address] [place] [address] Aug, [facility] [id number] [place] [address] Aug, [facility] [address] [address] Aug, [facility] [address] [id number] [place] [address] Aug, Hypertension I10 and Tremor R25.1 [facility] [address] [address] Aug, Bipolar 2 disorder F31.81 ; Posttraumatic stress disorder F43.10 ; Attention deficit disorder F90.0 and Social anxiety disorder F40.10 [facility] [address] [address] Jul, [place] [address] [address] Jul, Hyperlipidemia E78.5 [place] [address] [address] Jul, Hypertension I10 and Hyperli pidemia E78.5 [place] [address] [address] Jun, Bipolar 2 disorder F31.81 ; Posttraumatic stress disorder F43.10 ; Attention deficit disorder F90.0 and Social anxiety disorder F40.10 [place] [address] [address] May, [facility] [address] [address] May, [facility] [address] [address] Apr, Bipolar 2 disorder F31.81 ; Posttraumatic stress disorder F43.10 ; Attention deficit disorder F90.0 and Social phobia F40.10 [place] [address] [address] Apr, Bipolar 2 disorder F31.81 ; Posttraumatic stress disorder F43.10 and Attention deficit disorder F90.0 [facility] [address] [id number] [address] [place] [address] Apr, [facility] [address] [id number] [address] [place] [address] Apr, [facility] [address] [id number] [address] [place] [address] Apr, [facility] [address] [id number] [address] [place] [address] Mar, [facility] [address] [id number] [address] [place] [address] Mar, [facility] [address] [facility] [id number] [address] [place] [phone] Jan, [facility] [address] [facility] [id number] [address] [place] [address] Jan, [facility] [address] [facility] [id number] [address] [place] [address] Jan, Bipolar II disorder 296.89 ; Posttraumatic stress disorder 309.81 ; Social phobia 300.23 and Attention deficit disorder of childhood without mention of hyperactivity 314.00 [facility] [address] [facility] [id number] [address] [place] [address] Jan, Other and unspecified bipola r disorders 296.89 ; Posttraumatic stress disorder 309.81 and Attention deficit disorder of childhood without mention of hyperactivity 314.00 [facility] [address] [facility] [id number] [address] [place] [address] Jan, [facility] [address] [facility] [id number] [address] [place] [address] Dec, Other and unspecified bipola r disorders 296.89 ; Posttraumatic stress disorder 309.81 and Attention deficit disorder of childhood without mention of hyperactivity 314.00 [facility] [address] [facility] [id number] [address] [place] [address] Dec, Migraines 346.90 [facility] [address] [facility] [id number] [address] [place] [address] Dec, Other and unspecified bipola r disorders 296.89 ; Posttraumatic stress disorder 309.81 and Attention deficit disorder of childhood without mention of hyperactivity 314.00 [facility] [address] [facility] [id number] [address] [place] [address] Dec, [facility] [address] [facility] [id number] [address] [place] [address] Dec, Bipolar II disorder 296.89 ; Social phobia 300.23 ; Posttraumatic stress disorder 309.81 and Attention deficit disorder of childhood without mention of hyperactivity 314.00 [facility] [address] [facility] [id number] [address] [place] [address] Dec, Other and unspecified bipola r disorders 296.89 ; Posttraumatic stress disorder 309.81 and Attention deficit disorder of childhood without mention of hyperactivity 314.00 [facility] [address] [facility] [id number] [address] [place] [address] October, Other and unspecified bipola r disorders 296.89 ; Posttraumatic stress disorder 309.81 and Attention deficit disorder of childhood without mention of hyperactivity 314.00 [facility] [address] [facility] [id number] [address] [place] [address] October, [facility] [address] [facility] [id number] [address] [place] [address] October, [facility] [address] [facility] [id number] [address] [place] [address] October, [facility] [address] [facility] [id number] [address] [place] [address] October, [facility] [address] [facility] [id number] [address] [place] [address] October, Attention deficit disorder o f childhood without mention of hyperactivity 314.00 ; Posttraumatic stress disorder 309.81 ; Social phobia 300.23 and Other and unspecified bipolar disorders 296.89 [facility] [address] [id number] [facility] [place] [address] 14 Oct, 2014 [facility] [address] [id number] [address] [place] [address], [place] [address] 13 Oct, 2014 [facility] [address] [id number] [address] [place] [address], [place] [address] 26 Aug, 2014 [facility] [address] [id number] [address] [place] [address], [place] [address] 26 Aug, 2014 [facility] [address] [id number] [address] [place] [address], [place] [address] 24 Aug, 2014 [facility] [address] [id number] [address] [place] [address], [place] [address] 24 Aug, 2014 [facility] [address] [id number] [address] [place] [address], [place] [address] 17 Aug, 2014 [facility] [address] [id number] [address] [place] [address], [place] [address] 17 Aug, 2014 [facility] [address] [id number] [address] [place] [address], [place] [address] 17 Aug, 2014 [facility] [address] [id number] [address] [place] [address], [place] [address] 17 Aug, 2014 [facility] [address] [id number] [address] [place] [address], [place] [address] 17 Aug, 2014 [facility] [address] [id number] [address] [place] [address], [place] [address] 17 Aug, 2014 [facility] [address] [id number] [address] [place] [address], [place] [address] 13 Aug, 2014 [facility] [address] [id number] [address] [place] [address], [place] [address] 13 Aug, 2014 [facility] [address] [id number] [address] [place] [address], [place] [address] 12 Aug, 2014 [facility] [address] [id number] [address] [place] [address], [place] [address] 12 Aug, 2014 [facility] [address] [id number] [facility] [place] [address] Aug, [facility] [address] [id number] [address] [place] [address], [place] [address] Aug, [facility] [address] [id number] [address] [place] [address], [place] [address] Aug, [facility] [address] [id number] [address] [place] [address], [place] [address] Aug, [facility] [address] [id number] [address] [place] [address], [place] [address] Aug, [facility] [address] [id number] [address] [place] [address], [place] [address] Aug, [facility] [address] [id number] [address] [place] [address], [place] [address] Aug, [facility] [address] [id number] [address] [place] [address], [place] [address] Aug, [facility] [address] [id number] [address] [place] [address], [place] [address] Aug, [facility] [address] [id number] [address] [place] [address], [place] [address] Aug, [facility] [address] [id number] [address] [place] [address], [place] [address] Aug, [facility] [address] [id number] [address] [place] [address], [place] [address] Aug, 2014 [facility] [address] [id number] [address] [place] [address], [place] [address] Aug, [facility] [address] [id number] [address] [place] [address], [place] [address] Aug, [facility] [address] [id number] [address] [place] [address], [place] [address] Aug, [facility] [address] [id number] [address] [place] [address], [place] [address] Aug, [facility] [address] [id number] [address] [place] [address], [place] [address] Jul, [facility] [address] [id number] [address] [place] [address], [place] [address] Jul, [facility] [address] [id number] [address] [place] [address], [place] [address] Jul, [facility] [address] [id number] [address] [place] [address], [place] [address] Jul, [facility] [address] [id number] [address] [place] [address], [place] [id number] Jul, [facility] [address] [id number] [address] [place] [address], [place] [id number] Jul, [facility] [address] [id number] [address] [place] [address], [place] [id number] Jul, [facility] [address] [id number] [address] [place] [address], [place] [id number] Jul, [facility] [address] [id number] [address] [place] [address], [place] [id number] Jun, [facility] [address] [id number] [address] [place] [address], [place] [phone] Jun, [facility] [address] [id number] [address] [place] [address], [place] [id number] Jun, [facility] [address] [id number] [address] [place] [address], [place] [id number] Jun, [facility] [address] [id number] [address] [place] [address], [place] [address] May, [facility] [address] [id number] [address] [place] [address], [place] [id number] May, [facility] [address] [id number] [address] [place] [address], [place] [id number] May, [facility] [address] [facility] [id number] [address] [place] [id number] May, [facility] [address] [facility] [id number] [address] [place] [id number] May, [facility] [address] [facility] [id number] [address] [place] [id number] Apr, [facility] [address] [facility] [id number] [address] [place] [id number] Apr, IMMUNIZATIONS No Known Immunizations SOCIAL HISTORY Never Assessed REASON FOR VISIT low Back Painmaiking it hard to walk -- rosa vang PLAN OF CARE Activity Details Follow Up has appt with PCP Reason: VITAL SIGNS Height 64 in 2018-03-06 Weight 151.0 lbs 2018-03-06 Temperature 97.0 degrees Fahrenheit 2018-03-06 BMI 25.92 kg/m2 2018-03-06 Blood pressure systolic 136 mmHg 2018-03-06 Blood pressure diastolic 78 mmHg 2018-03-06 MEDICATIONS Medication Instructions Dosage Frequency Start Date End Date Duration S tatus Atorvastatin Calcium 20 MG TAKE ONE TABL ET BY MOUTH ONCE DAILY (MUST HAVE APPOINTMENT FOR REFILL) 30 Acti ve Lamotrigine 200 MG TAKE ONE TABLET BY M OUTH ONCE DAILY IN THE EVENING FOR DEPRESSION 30 Active Omeprazole 20 MG TAKE ONE CAPSULE BY MOUTH ONCE DAILY 30 Active Vitamin C 500 mg 1 tablet by Oral route 1 time per day 3 0 Apr, 2014 Active Vitamin D3 5000 UNIT Orally Once a day 1 capsule 24h Apr, Active Lisinopril 20 MG TAKE ONE TABLET BY MOUTH ONCE DAILY 30 Active Cyclobenzaprine HCl 10 mg Orally Three times a day 1 tablet as need ed 8h Mar, Apr, 30 days Active Hydrocodone-Ibuprofen 7.5-200 MG Orally 3 times a day 1 tablet as n eeded 8h Mar, Mar, 05 days Active Aspirin 325 mg 1 tablet by Oral route 1 time per day Apr, Active Multivitamin 1 tablet by Oral route 1 time per day 30 Oc 2013 Active Vyvanse 30 MG Orally Once a day for ADHD 1 capsule in the morning Jan, 28 days Active RESULTS No Results PROCEDURES No Known procedures INSTRUCTIONS MEDICATIONS ADMINISTERED No Known Medications MEDICAL (GENERAL) HISTORY Type Description Date Medical History Hypertension Medical History GERD Medical History Bipolar Surgical History Hernia right ingual Surgical History Colonoscopy october 2014 Hospitalization History surgeries Hospitalization History [facility] for dehydration and vomitting 10/04/15
--- OUTSIDE RECORDS SUMMARY | 2019-11-11 19:11 | XMS REPORT ---
Author Author [place] Organization [facility] Address [address] [place] [address] Care Team Providers Care Neck Cutter Name Role Phone FLEX GUILLERMO Unavailable PROBLEMS Type Condition ICD9-CM Code FDA97-SP Code Onset Dates Condition S tatus SNOMED Code Problem Hypertension I10 Active 8902185 3 Problem Gastroesophageal reflux disease without esophagitis K21.9 Active 767579799 Problem Hyperlipidemia E78.5 Active 98715 004 Problem Posttraumatic stress disorder F43.10 Active 66291586 Problem Bipolar 2 disorder F31.81 Active 8 3957743 Problem Attention deficit disorder F90.0 Act shalom 880510259 Problem Social anxiety disorder F40.10 Active 18435562 Problem Pure hypercholesterolemia E78.00 Acti ve 160122811 Problem Lumbago with sciatica, right side M54.41 Active [id number] Problem Chronic post-traumatic stress disorder (PTSD) F43. 12 Active 022020241 Problem Urinary hesitancy R39.11 Active 59 50108 Problem Lumbago with sciatica, left side M54.42 Active 531641613 Problem Other chronic pain G89.29 Active 8 [id number] ALLERGIES No Information ENCOUNTERS Encounter Location Date Diagnosis [facility] [address] [facility] [id number] [address] [place] [phone] Aug, [facility] [address] [facility] [id number] [address] [place] [phone] May, [facility] [address] [facility] [id number] [address] [place] [phone] May, [facility] [address] [place] [id number] [address] [place] [phone] May, Bipolar 2 disorder F31.81 ; Social anxiety disorder F40.10 ; Chronic post-traumatic stress disorder (PTSD) F43.12 ; Attention deficit disorder F90.0 and Encounter for immunization Z23 [facility] [address] [place] [id number] [address] [place] [phone] Apr, [facility] [address] [facility] [id number] [address] [place] [phone] Apr, Body aches R52 and Acute chely opharyngitis J00 [place] [address] [place] [id number] [address] [place] [id number] 24 Mar, 2018 Pure hypercholesterolemia E7 8.00 and Exertional chest pain R07.9 [place] [address] [facility] [id number] [phone] 21 Mar, 2018 Hyperlipidemia E78.5 ; Hyper tension I10 and Routine adult health maintenance Z00.00 [place] [id number] [facility] [id number] [place] [phone] 20 Mar, 2018 Hypertension I10 ; Hyperlipi demia E78.5 ; Chest pain, exertional R07.9 and Routine adult health maintenance Z00.00 [facility] [address] [place] [id number] [address] [place] [id number] 17 Mar, 2018 [place] [address] [place] [id number] [place] [phone] Mar, Lumbago with sciatica, left side M54.42 and Lumbago with sciatica, right side M54.41 [place] [address] [place] [id number] [address] [place] [phone] Jan, [place] [address] [place] [id number] [address] [place] [phone] Dec, Bipolar 2 disorder F31.81 ; Social anxiety disorder F40.10 and Chronic post-traumatic stress disorder (PTSD) F43.12 [facility] [address] [place] [id number] [address] [place] [phone] Dec, [facility] [address] [place] [id number] [address] [place] [phone] Dec, [facility] [address] [id number] [address] [place] [phone] Dec, Upper respiratory tract infe ction, unspecified type J06.9 [facility] [address] [id number] [address] [place] [phone] October, [facility] [address] [id number] [address] [place] [phone] Oct, Bipolar 2 disorder F31.81 ; Attention deficit disorder F90.0 ; Social anxiety disorder F40.10 and Chronic post-traumatic stress disorder (PTSD) F43.12 [facility] [address] [id number] [address] [place] [phone] Oct, [facility] [address] [id number] [address] [place] [phone] Oct, [facility] [address] [facility] [id number] [address] [place] [phone] Aug, [facility] [address] [id number] [address] [place] [phone] Aug, [facility] [address] [id number] [address] [place] [id number] Jul, Strain of lumbar region, ini tial encounter S39.012A [facility] [address] [id number] [address] [place] [id number] Jul, Lumbago with sciatica, left side M54.42 and Lumbago with sciatica, right side M54.41 [facility] [address] [id number] [address] [place] [phone] Jul, Low back pain M54.5 and Othe r chronic pain G89.29 [facility] [address] [id number] [address] [place] [phone] Jul, [facility] [address] [facility] [id number] [address] [place] [phone] Jul, Bipolar 2 disorder F31.81 ; Attention deficit disorder F90.0 and Social anxiety disorder F40.10 [facility] [address] [id number] [address] [place] [phone] Jun, [facility] [address] [facility] [id number] [address] [place] [phone] May, [facility] [address] [facility] [id number] [address] [place] [phone] Apr, Bipolar 2 disorder F31.81 ; Attention deficit disorder F90.0 ; Social anxiety disorder F40.10 and Chronic post-traumatic stress disorder (PTSD) F43.12 [facility] [address] [facility] [id number] [address] [place] [phone] Apr, [facility] [address] [facility] [id number] [address] [place] [phone] Apr, Hyperlipidemia E78.5 [facility] [address] [facility] [id number] [address] [place] [phone] Mar, Encounter for immunization Z 23 and Tinea cruris B35.6 [facility] [address] [facility] [id number] [address] [place] [phone] Mar, [facility] [address] [facility] [id number] [address] [place] [phone] Jan, [facility] [address] [facility] [id number] [address] [place] [phone] Dec, [facility] [address] [facility] [id number] [address] [place] [phone] Dec, [facility] [address] [facility] [id number] [address] [place] [id number] Dec, Bipolar 2 disorder F31.81 ; Social anxiety disorder F40.10 and Attention deficit disorder F90.0 [facility] [address] [facility] [id number] [address] [place] [phone] Dec, [facility] [address] [id number] [address] [place] [id number] 08 Dec, 2016 Hypertension I10 [facility] [address] [id number] [address] [place] [phone] October, [facility] [address] [id number] [address] [place] [phone] Oct, [facility] [address] [id number] [address] [place] [phone] Oct, Nasal congestion R09.81 [facility] [address] [id number] [address] [place] [phone] Oct, Social anxiety disorder F40. 10 ; Bipolar 2 disorder F31.81 and Attention deficit disorder F90.0 [facility] [address] [id number] [address] [place] [phone] Aug, [facility] [address] [id number] [address] [place] [phone] Aug, [facility] [address] [id number] [address] [place] [id number] Jul, Nasal congestion R09.81 [facility] [address] [id number] [address] [place] [phone] Jul, [facility] [address] [facility] [id number] [address] [place] [address] Jun, Bipolar 2 disorder F31.81 ; Attention deficit disorder F90.0 ; Social anxiety disorder F40.10 and Chronic post-traumatic stress disorder (PTSD) F43.12 [facility] [address] [id number] [address] [place] [phone] Jun, [facility] [address] [id number] [address] [place] [phone] May, [facility] [address] [facility] [id number] [address] [place] [id number] 14 Apr, 2016 Attention deficit disorder F 90.0 [facility] [address] [id number] [address] [place] [phone] Apr, Urinary hesitancy R39.11 ; H yperlipidemia E78.5 and Encounter for immunization Z23 [facility] [address] [facility] [id number] [address] [place] [phone] Apr, [facility] [address] [facility] [id number] [address] [place] [phone] Mar, [facility] [address] [facility] [id number] [address] [place] [phone] Jan, [facility] [address] [facility] [id number] [address] [place] [phone] Dec, [facility] [address] [facility] [id number] [address] [place] [phone] Dec, [facility] [address] [facility] [id number] [address] [place] [phone] Dec, Bipolar 2 disorder F31.81 ; Attention deficit disorder F90.0 ; Posttraumatic stress disorder F43.10 and Social anxiety disorder F40.10 [facility] [address] [facility] [id number] [address] [place] [phone] Dec, Scabies exposure Z20.89 and Scabies B86 [facility] [address] [facility] [id number] [address] [place] [phone] Dec, [facility] [address] [facility] [id number] [address] [place] [phone] Dec, Hypertension I10 and Gastroe sophageal reflux disease without esophagitis K21.9 [facility] [address] [facility] [id number] [address] [place] [id number] October, [facility] [address] [facility] [id number] [address] [place] [phone] October, [facility] [address] [facility] [id number] [address] [place] [address] Oct, Bipolar 2 disorder F31.81 ; Posttraumatic stress disorder F43.10 ; Attention deficit disorder F90.0 and Social anxiety disorder F40.10 [facility] [address] [address] Oct, [facility] [address] [place] [id number] [place] [phone] Oct, Hypertension I10 and Nasal c ongestion R09.81 [facility] [address] [place] [id number] [place] [phone] Aug, [facility] [address] [place] [id number] [place] [phone] Aug, [facility] [address] [id number] Aug, [facility] [address] [id number] Aug, [facility] [address] [address] Aug, [facility] [address] [address] Aug, Hypertension I10 and Tremor R25.1 [facility] [address] [address] Aug, Bipolar 2 disorder F31.81 ; Posttraumatic stress disorder F43.10 ; Attention deficit disorder F90.0 and Social anxiety disorder F40.10 [facility] [address] [place] [id number] [address] [place] [phone] Jul, [facility] [address] [place] [id number] [place] [phone] Jul, Hyperlipidemia E78.5 [facility] [address] [place] [id number] [place] [phone] Jul, Hypertension I10 and Hyperli pidemia E78.5 [facility] [address] [place] [id number] [place] [phone] Jun, Bipolar 2 disorder F31.81 ; Posttraumatic stress disorder F43.10 ; Attention deficit disorder F90.0 and Social anxiety disorder F40.10 [facility] [address] [facility] [id number] [address] [place] [phone] May, [facility] [address] [facility] [id number] [address] [place] [phone] May, [facility] [address] [facility] [id number] [address] [place] [address] Apr, Bipolar 2 disorder F31.81 ; Posttraumatic stress disorder F43.10 ; Attention deficit disorder F90.0 and Social phobia F40.10 [facility] [address] [facility] [id number] [address] [place] [phone] Apr, Bipolar 2 disorder F31.81 ; Posttraumatic stress disorder F43.10 and Attention deficit disorder F90.0 [facility] [address] [facility] [id number] [address] [place] [phone] Apr, [facility] [address] [facility] [id number] [address] [place] [phone] Apr, [facility] [address] [facility] [id number] [address] [place] [phone] Apr, [facility] [address] [facility] [id number] [address] [place] [phone] Mar, [facility] [address] [facility] [id number] [address] [place] [phone] Mar, [facility] [address] [facility] [id number] [address] [place] [phone] Jan, [facility] [address] [facility] [id number] [address] [place] [phone] Jan, [facility] [address] [facility] [id number] [address] [place] [address] Jan, Bipolar II disorder 296.89 ; Posttraumatic stress disorder 309.81 ; Social phobia 300.23 and Attention deficit disorder of childhood without mention of hyperactivity 314.00 [facility] [address] [facility] [id number] [address] [place] [address] Jan, Other and unspecified bipola r disorders 296.89 ; Posttraumatic stress disorder 309.81 and Attention deficit disorder of childhood without mention of hyperactivity 314.00 [facility] [address] [facility] [id number] [address] [place] [phone] Jan, [facility] [address] [facility] [id number] [address] [place] [phone] Dec, Other and unspecified bipola r disorders 296.89 ; Posttraumatic stress disorder 309.81 and Attention deficit disorder of childhood without mention of hyperactivity 314.00 [facility] [address] [facility] [id number] [address] [place] [address] Dec, Migraines 346.90 [facility] [address] [facility] [id number] [address] [place] [address] Dec, Other and unspecified bipola r disorders 296.89 ; Posttraumatic stress disorder 309.81 and Attention deficit disorder of childhood without mention of hyperactivity 314.00 [facility] [address] [facility] [id number] [address] [place] [phone] Dec, [facility] [address] [facility] [id number] [address] [place] [phone] Dec, Bipolar II disorder 296.89 ; Social phobia 300.23 ; Posttraumatic stress disorder 309.81 and Attention deficit disorder of childhood without mention of hyperactivity 314.00 [facility] [address] [facility] [id number] [address] [place] [id number] Dec, Other and unspecified bipola r disorders 296.89 ; Posttraumatic stress disorder 309.81 and Attention deficit disorder of childhood without mention of hyperactivity 314.00 [facility] [address] [facility] [id number] [address] [place] [phone] October, Other and unspecified bipola r disorders 296.89 ; Posttraumatic stress disorder 309.81 and Attention deficit disorder of childhood without mention of hyperactivity 314.00 [facility] [address] [facility] [id number] [address] [place] [phone] October, [facility] [address] [id number] [address] [place] [phone] October, [facility] [address] [id number] [address] [place] [phone] October, [facility] [address] [facility] [id number] [address] [place] [phone] October, [facility] [address] [facility] [id number] [address] [place] [phone] October, Attention deficit disorder o f childhood without mention of hyperactivity 314.00 ; Posttraumatic stress disorder 309.81 ; Social phobia 300.23 and Other and unspecified bipolar disorders 296.89 [facility] [address] [facility] [id number] [address] [place] [phone] Oct, [facility] [address] [facility] [id number] [address] [place] [phone] Oct, [facility] [address] [facility] [id number] [address] [place] [phone] Aug, [facility] [address] [id number] [address] [place] [phone] Aug, [facility] [address] [facility] [id number] [address] [place] [phone] Aug, [facility] [address] [id number] [address] [place] [id number] Aug, [facility] [address] [id number] [address] [place] [phone] Aug, [facility] [address] [id number] [address] [place] [phone] Aug, [facility] [address] [facility] [id number] [address] [place] [phone] Aug, [facility] [address] [id number] [address] [place] [phone] 17 Aug, 2014 [facility] [address] [id number] [facility] [place] [address] 17 Aug, 2014 [facility] [address] [id number] [facility] [place] [address] 17 Aug, 2014 [facility] [address] [id number] [facility] [place] [address] 13 Aug, 2014 [facility] [address] [id number] [address] [place] [address], [place] [address] 13 Aug, 2014 [facility] [address] [id number] [facility] [place] [address] 12 Aug, 2014 [facility] [address] [id number] [address] [place] [address], [place] [address] Aug, [facility] [address] [id number] [address] [place] [address], [place] [address] Aug, [facility] [address] [id number] [address] [place] [address], [place] [address] Aug, [facility] [address] [id number] [address] [place] [address], [place] [address] Aug, [facility] [address] [id number] [address] [place] [address], [place] [address] Aug, [facility] [address] [id number] [address] [place] [address], [place] [address] Aug, [facility] [address] [id number] [address] [place] [address], [place] [address] Aug, [facility] [address] [id number] [address] [place] [address], [place] [id number] 04 Aug, 2014 [facility] [address] [id number] [address] [place] [address], [place] [address] 04 Aug, 2014 [facility] [address] [id number] [address] [place] [address], [place] [address] Aug, [facility] [address] [id number] [address] [place] [address], [place] [address] Aug, [facility] [address] [id number] [address] [place] [address], [place] [address] Aug, [facility] [address] [id number] [address] [place] [address], [place] [address] Aug, 2014 [facility] [address] [id number] [address] [place] [address], [place] [address] Aug, 2014 [facility] [address] [id number] [address] [place] [address], [place] [address] Aug, [facility] [address] [id number] [address] [place] [address], [place] [address] Aug, [facility] [address] [id number] [address] [place] [address], [place] [address] Aug, [facility] [address] [id number] [address] [place] [address], [place] [address] Jul, [facility] [address] [id number] [address] [place] [address], [place] [address] Jul, [facility] [address] [id number] [address] [place] [address], [place] [address] Jul, [facility] [address] [id number] [address] [place] [address], [place] [address] Jul, [facility] [address] [id number] [address] [place] [address], [place] [address] Jul, [facility] [address] [id number] [address] [place] [address], [place] [address] Jul, [facility] [address] [id number] [address] [place] [address], [place] [phone] Jul, [facility] [address] [id number] [address] [place] [address], [place] [id number] Jul, [facility] [address] [id number] [address] [place] [address], [place] [id number] Jun, [facility] [address] [id number] [address] [place] [id number] Jun, [facility] [address] [id number] [address] [place] [id number] Jun, [facility] [address] [id number] [address] [place] [id number] Jun, [facility] [address] [id number] [address] [place] [phone] May, [facility] [address] [id number] [address] [place] [phone] May, [facility] [address] [id number] [address] [place] [phone] May, [facility] [address] [id number] [address] [place] [phone] May, [facility] [address] [id number] [address] [place] [phone] May, [facility] [address] [id number] [address] [place] [phone] Apr, [facility] [address] [id number] [address] [place] [id number] Apr, IMMUNIZATIONS No Known Immunizations SOCIAL HISTORY Never Assessed REASON FOR VISIT vyvanse 05/29/2018 PLAN OF CARE VITAL SIGNS MEDICATIONS Medication Instructions Dosage Frequency Start Date End Date Duration S tatus Vyvanse 30 MG Orally Once a day for ADHD 1 capsule in the morning May, 28 days Active RESULTS No Results PROCEDURES No Known procedures INSTRUCTIONS MEDICATIONS ADMINISTERED No Known Medications MEDICAL (GENERAL) HISTORY Type Description Date Medical History Hypertension Medical History GERD Medical History Bipolar Surgical History Hernia right ingual Surgical History Colonoscopy october 2014 Hospitalization History surgeries Hospitalization History ER for dehydration and vomitting 10/04/15
--- OUTSIDE RECORDS SUMMARY | 2019-11-11 19:11 | XMS REPORT ---
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 Name Role Phone GUILLERMO MCCORD Unavailable PROBLEMS Type Condition ICD9-CM Code WHN85-ZU Code Onset Dates Condition S tatus SNOMED Code Problem Hypertension I10 Active 0244476 3 Problem Gastroesophageal reflux disease without esophagitis K21.9 Active 389022694 Problem Hyperlipidemia E78.5 Active 73111 004 Problem Posttraumatic stress disorder F43.10 Active 36043097 Problem Bipolar 2 disorder F31.81 Active 8 8867469 Problem Attention deficit disorder F90.0 Act shalom 480899134 Problem Social anxiety disorder F40.10 Active 66788741 Problem Pure hypercholesterolemia E78.00 Acti ve 902464179 Problem Lumbago with sciatica, right side M54.41 Active [id number] Problem Chronic post-traumatic stress disorder (PTSD) F43. 12 Active 247220541 Problem Urinary hesitancy R39.11 Active 59 38538 Problem Lumbago with sciatica, left side M54.42 Active 678644267 Problem Other chronic pain G89.29 Active 8 1645520 ALLERGIES No Information ENCOUNTERS Encounter Location Date Diagnosis [facility] [address] [id number] [address] [place] [address] May, [facility] [address] [id number] [address] [place] [address] Apr, Body aches R52 and Acute chely opharyngitis J00 [facility] [address] [id number] [address] [place] [address] Mar, Pure hypercholesterolemia E7 8.00 and Exertional chest pain R07.9 [facility] [id number] [address] [place] [address] Mar, Hyperlipidemia E78.5 ; Hyper tension I10 and Routine adult health maintenance Z00.00 [facility] [address] [id number] [address] [place] [address] 20 Mar, 2018 Hypertension I10 ; Hyperlipi demia E78.5 ; Chest pain, exertional R07.9 and Routine adult health maintenance Z00.00 [facility] [address] [id number] [address] [place] [address] 17 Mar, 2018 [facility] [address] [id number] [address] [place] [address] 04 Mar, 2018 Lumbago with sciatica, left side M54.42 and Lumbago with sciatica, right side M54.41 [facility] [address] [id number] [address] [place] [address] Jan, [place] [address] [id number] [address] [place] [address] Dec, Bipolar 2 disorder F31.81 ; Social anxiety disorder F40.10 and Chronic post-traumatic stress disorder (PTSD) F43.12 [facility] [address] [id number] [address] [place] [address] Dec, [facility] [address] [facility] [id number] [address] [place] [address] Dec, [facility] [address] [id number] [address] [place] [address] Dec, Upper respiratory tract infe ction, unspecified type J06.9 [facility] [address] [id number] [address] [place] [address] October, [facility] [address] [facility] [id number] [address] [place] [address] Oct, Bipolar 2 disorder F31.81 ; Attention deficit disorder F90.0 ; Social anxiety disorder F40.10 and Chronic post-traumatic stress disorder (PTSD) F43.12 [facility] [address] [facility] [id number] [address] [place] [address] Oct, [facility] [address] [id number] [address] [place] [address] Oct, [facility] [address] [id number] [address] [place] [address] Aug, [facility] [address] [facility] [id number] [address] [place] [address] Aug, [facility] [address] [facility] [id number] [address] [place] [address] Jul, Strain of lumbar region, ini tial encounter S39.012A [facility] [address] [facility] [id number] [address] [place] [address] Jul, Lumbago with sciatica, left side M54.42 and Lumbago with sciatica, right side M54.41 [facility] [address] [facility] [id number] [address] [place] [address] Jul, Low back pain M54.5 and Othe r chronic pain G89.29 [facility] [address] [facility] [id number] [address] [place] [address] Jul, [facility] [address] [facility] [id number] [address] [place] [address] Jul, Bipolar 2 disorder F31.81 ; Attention deficit disorder F90.0 and Social anxiety disorder F40.10 [facility] [address] [facility] [id number] [address] [place] [address] Jun, [facility] [address] [facility] [id number] [address] [place] [address] May, [facility] [address] [facility] [id number] [address] [place] [address] Apr, Bipolar 2 disorder F31.81 ; Attention deficit disorder F90.0 ; Social anxiety disorder F40.10 and Chronic post-traumatic stress disorder (PTSD) F43.12 [facility] [address] [facility] [id number] [address] [place] [address] Apr, [facility] [address] [facility] [id number] [address] [place] [address] Apr, Hyperlipidemia E78.5 [facility] [address] [facility] [id number] [address] [place] [address] 27 Mar, 2017 Encounter for immunization Z 23 and Tinea cruris B35.6 [facility] [address] [facility] [id number] [address] [place] [address] 15 Mar, 2017 [facility] [address] [facility] [id number] [address] [place] [address] Jan, [facility] [address] [facility] [id number] [address] [place] [address] Dec, [facility] [address] [facility] [id number] [address] [place] [address] Dec, [facility] [address] [facility] [id number] [address] [place] [address] Dec, Bipolar 2 disorder F31.81 ; Social anxiety disorder F40.10 and Attention deficit disorder F90.0 [facility] [address] [facility] [id number] [address] [place] [address] Dec, [facility] [address] [facility] [id number] [address] [place] [address] Dec, Hypertension I10 [facility] [address] [facility] [id number] [address] [place] [address] October, [facility] [address] [facility] [id number] [address] [place] [address] Oct, [facility] [address] [facility] [id number] [address] [place] [address] Oct, Nasal congestion R09.81 [facility] [address] [facility] [id number] [address] [place] [address] Oct, Social anxiety disorder F40. 10 ; Bipolar 2 disorder F31.81 and Attention deficit disorder F90.0 [facility] [address] [facility] [id number] [address] [place] [address] Aug, [facility] [address] [facility] [id number] [address] [place] [address] Aug, [facility] [id number] [place] [address] Jul, Nasal congestion R09.81 [facility] [id number] [place] [address] Jul, [facility] [id number] [address] [place] [address] Jun, Bipolar 2 disorder F31.81 ; Attention deficit disorder F90.0 ; Social anxiety disorder F40.10 and Chronic post-traumatic stress disorder (PTSD) F43.12 [facility] [id number] [address] [place] [address] Jun, [facility] [address] [address] May, [facility] [address] [address] 14 Apr, 2016 Attention deficit disorder F 90.0 [facility] [id number] [place] [address] 10 Apr, 2016 Urinary hesitancy R39.11 ; H yperlipidemia E78.5 and Encounter for immunization Z23 [facility] [id number] [address] [place] [address] Apr, [facility] [id number] [place] [address] Mar, [facility] [id number] [address] [place] [address] Jan, [facility] [id number] [address] [place] [address] Dec, [facility] [address] [facility] [id number] [address] [place] [address] Dec, [facility] [id number] [place] [address] Dec, Bipolar 2 disorder F31.81 ; Attention deficit disorder F90.0 ; Posttraumatic stress disorder F43.10 and Social anxiety disorder F40.10 [facility] [address] [facility] [id number] [address] [place] [address] Dec, Scabies exposure Z20.89 and Scabies B86 [facility] [address] [facility] [id number] [address] [place] [address] Dec, [facility] [address] [address] Dec, Hypertension I10 and Gastroe sophageal reflux disease without esophagitis K21.9 [facility] [address] [id number] [address] [place] [address] October, [facility] [id number] [place] [address] October, [facility] [id number] [place] [address] Oct, Bipolar 2 disorder F31.81 ; Posttraumatic stress disorder F43.10 ; Attention deficit disorder F90.0 and Social anxiety disorder F40.10 [facility] [id number] [place] [address] Oct, [facility] [id number] [place] [address] Oct, Hypertension I10 and Nasal c ongestion R09.81 [facility] [address] [facility] [id number] [address] [place] [address] Aug, [facility] [id number] [place] [address] Aug, [facility] [address] [place] [address] Aug, [facility] [address] [facility] [id number] [address] [place] [address] Aug, [facility] [address] [facility] [id number] [address] [place] [address] Aug, [facility] [id number] [place] [address] Aug, Hypertension I10 and Tremor R25.1 [facility] [address] [facility] [id number] [address] [place] [address] Aug, Bipolar 2 disorder F31.81 ; Posttraumatic stress disorder F43.10 ; Attention deficit disorder F90.0 and Social anxiety disorder F40.10 [facility] [id number] [place] [address] Jul, [facility] [address] [address] Jul, Hyperlipidemia E78.5 [facility] [id number] [place] [address] Jul, Hypertension I10 and Hyperli pidemia E78.5 [facility] [id number] [place] [address] Jun, Bipolar 2 disorder F31.81 ; Posttraumatic stress disorder F43.10 ; Attention deficit disorder F90.0 and Social anxiety disorder F40.10 [facility] [address] [facility] [id number] [address] [place] [address] May, [facility] [address] [address] May, [facility] [id number] [place] [address] Apr, Bipolar 2 disorder F31.81 ; Posttraumatic stress disorder F43.10 ; Attention deficit disorder F90.0 and Social phobia F40.10 [facility] [address] [facility] [id number] [address] [place] [address] Apr, Bipolar 2 disorder F31.81 ; Posttraumatic stress disorder F43.10 and Attention deficit disorder F90.0 [facility] [address] [id number] [address] [place] [address] Apr, [facility] [address] [facility] [id number] [address] [place] [address] Apr, [facility] [address] [id number] [address] [place] [address] Apr, [facility] [address] [id number] [address] [place] [address] Mar, [facility] [address] [facility] [id number] [address] [place] [address] Mar, [facility] [address] [facility] [id number] [address] [place] [address] Jan, [facility] [address] [facility] [id number] [address] [place] [address] Jan, [facility] [address] [facility] [id number] [address] [place] [address] Jan, Bipolar II disorder 296.89 ; Posttraumatic stress disorder 309.81 ; Social phobia 300.23 and Attention deficit disorder of childhood without mention of hyperactivity 314.00 [facility] [address] [facility] [id number] [address] [place] [address] Jan, Other and unspecified bipola r disorders 296.89 ; Posttraumatic stress disorder 309.81 and Attention deficit disorder of childhood without mention of hyperactivity 314.00 [facility] [address] [facility] [id number] [address] [place] [address] Jan, [facility] [address] [facility] [id number] [address] [place] [address] Dec, Other and unspecified bipola r disorders 296.89 ; Posttraumatic stress disorder 309.81 and Attention deficit disorder of childhood without mention of hyperactivity 314.00 [facility] [address] [id number] [address] [place] [address] Dec, Migraines 346.90 [facility] [address] [facility] [id number] [address] [place] [address] Dec, Other and unspecified bipola r disorders 296.89 ; Posttraumatic stress disorder 309.81 and Attention deficit disorder of childhood without mention of hyperactivity 314.00 [facility] [address] [facility] [id number] [address] [place] [address] Dec, [facility] [address] [facility] [id number] [address] [place] [address] Dec, Bipolar II disorder 296.89 ; Social phobia 300.23 ; Posttraumatic stress disorder 309.81 and Attention deficit disorder of childhood without mention of hyperactivity 314.00 [facility] [address] [facility] [id number] [address] [place] [address] Dec, Other and unspecified bipola r disorders 296.89 ; Posttraumatic stress disorder 309.81 and Attention deficit disorder of childhood without mention of hyperactivity 314.00 [facility] [address] [facility] [id number] [address] [place] [address] October, Other and unspecified bipola r disorders 296.89 ; Posttraumatic stress disorder 309.81 and Attention deficit disorder of childhood without mention of hyperactivity 314.00 [facility] [address] [facility] [id number] [address] [place] [address] October, [facility] [address] [facility] [id number] [address] [place] [address] October, [facility] [address] [facility] [id number] [address] [place] [address] October, [facility] [address] [facility] [id number] [address] [place] [address] October, [facility] [address] [facility] [id number] [address] [place] [address] October, Attention deficit disorder o f childhood without mention of hyperactivity 314.00 ; Posttraumatic stress disorder 309.81 ; Social phobia 300.23 and Other and unspecified bipolar disorders 296.89 [facility] [address] [id number] [address] [place] [address], [place] [address] 14 Oct, 2014 [facility] [address] [id number] [address] [place] [address] 13 Oct, 2014 [facility] [address] [id number] [address] [place] [address] 26 Aug, 2014 [facility] [address] [id number] [address] [place] [address] 26 Aug, 2014 [facility] [address] [id number] [address] [place] [address] 24 Aug, 2014 [facility] [address] [id number] [address] [place] [address] 24 Aug, 2014 [facility] [address] [id number] [address] [place] [address] 17 Aug, 2014 [facility] [address] [id number] [address] [place] [address] 17 Aug, 2014 [facility] [address] [id number] [address] [place] [address] 17 Aug, 2014 [facility] [address] [id number] [address] [place] [address] 17 Aug, 2014 [facility] [address] [id number] [address] [place] [address] 17 Aug, 2014 [facility] [address] [id number] [address] [place] [address] 17 Aug, 2014 [facility] [address] [id number] [address] [place] [address] 13 Aug, 2014 [facility] [address] [id number] [address] [place] [address] 13 Aug, 2014 [facility] [address] [id number] [address] [place] [address] 12 Aug, 2014 [facility] [address] [id number] [facility] [place] [address] 12 Aug, 2014 [facility] [address] [id number] [address] [place] [address], [place] [address] Aug, [facility] [address] [id number] [address] [place] [address], [place] [address] Aug, [facility] [address] [id number] [address] [place] [address], [place] [address] Aug, [facility] [address] [id number] [address] [place] [address], [place] [address] Aug, [facility] [address] [id number] [address] [place] [address], [place] [address] Aug, [facility] [address] [id number] [address] [place] [address], [place] [address] Aug, [facility] [address] [id number] [address] [place] [address], [place] [address] Aug, [facility] [address] [id number] [address] [place] [address], [place] [address] Aug, [facility] [address] [id number] [address] [place] [address], [place] [address] Aug, [facility] [address] [id number] [address] [place] [address], [place] [address] Aug, [facility] [address] [id number] [address] [place] [address], [place] [address] Aug, [facility] [address] [id number] [address] [place] [address], [place] [address] Aug, [facility] [address] [id number] [address] [place] [address], [place] [address] Aug, [facility] [address] [id number] [address] [place] [address], [place] [address] Aug, [facility] [address] [id number] [address] [place] [address], [place] [address] Aug, [facility] [address] [id number] [address] [place] [address], [place] [address] Aug, [facility] [address] [id number] [address] [place] [address], [place] [address] Jul, [facility] [address] [id number] [address] [place] [address], [place] [address] Jul, [facility] [address] [id number] [address] [place] [address], [place] [address] Jul, [facility] [address] [id number] [address] [place] [address], [place] [address] Jul, [facility] [address] [id number] [address] [place] [address], [place] [address] Jul, [facility] [address] [id number] [address] [place] [address], [place] [address] Jul, [facility] [address] [id number] [address] [place] [address], [place] [address] Jul, [facility] [address] [id number] [address] [place] [address], [place] [address] Jul, [facility] [address] [id number] [address] [place] [address], [place] [address] Jun, [facility] [address] [id number] [address] [place] [address], [place] [address] Jun, [facility] [address] [id number] [address] [place] [address], [place] [address] Jun, [facility] [address] [id number] [address] [place] [address], [place] [address] Jun, [facility] [address] [id number] [address] [place] [address], [place] [address] May, [facility] [address] [id number] [address] [place] [address], [place] [address] May, [facility] [address] [id number] [address] [place] [address] May, [facility] [address] [facility] [id number] [address] [place] [address] May, [facility] [facility] [address] [facility] [id number] [address] [place] [id number] May, [facility] [address] [facility] [id number] [address] [place] [id number] Apr, [facility] [address] [facility] [id number] [address] [place] [id number] Apr, IMMUNIZATIONS No Known Immunizations SOCIAL HISTORY Never Assessed REASON FOR VISIT vyvanse 03/21/2018 PLAN OF CARE VITAL SIGNS MEDICATIONS Medication Instructions Dosage Frequency Start Date End Date Duration S sekouus Vyvanse 30 MG Orally Once a day for ADHD 1 capsule in the morning Mar, 28 days Active RESULTS No Results PROCEDURES No Known procedures INSTRUCTIONS MEDICATIONS ADMINISTERED No Known Medications MEDICAL (GENERAL) HISTORY Type Description Date Medical History Hypertension Medical History GERD Medical History Bipolar Surgical History Hernia right ingual Surgical History Colonoscopy october 2014 Hospitalization History surgeries Hospitalization History ER for dehydration and vomitting 10/04/15
--- OUTSIDE RECORDS SUMMARY | 2019-11-11 19:11 | XMS REPORT ---
Author Author [place] Organization [facility] Address [address] [place] [address] Care Team Providers Care Vp Sales Name Role Phone FLEX GUILLERMO Unavailable PROBLEMS Type Condition ICD9-CM Code ERR96-TA Code Onset Dates Condition S tatus SNOMED Code Problem Hypertension I10 Active 3321163 3 Problem Gastroesophageal reflux disease without esophagitis K21.9 Active 661169380 Problem Hyperlipidemia E78.5 Active 24026 004 Problem Posttraumatic stress disorder F43.10 Active 69242621 Problem Bipolar 2 disorder F31.81 Active 8 3798956 Problem Attention deficit disorder F90.0 Act shalom 385384951 Problem Social anxiety disorder F40.10 Active 52995322 Problem Pure hypercholesterolemia E78.00 Acti ve 835638615 Problem Lumbago with sciatica, right side M54.41 Active [id number] Problem Chronic post-traumatic stress disorder (PTSD) F43. 12 Active 038624897 Problem Urinary hesitancy R39.11 Active 59 23754 Problem Lumbago with sciatica, left side M54.42 Active 244573865 Problem Other chronic pain G89.29 Active 8 [id number] ALLERGIES No Information ENCOUNTERS Encounter Location Date Diagnosis [facility] [address] [id number] [address] [place] [address] Aug, [facility] [address] [id number] [address] [place] [address] May, [facility] [address] [id number] [address] [place] [address] May, Bipolar 2 disorder F31.81 ; Social anxiety disorder F40.10 ; Chronic post-traumatic stress disorder (PTSD) F43.12 ; Attention deficit disorder F90.0 and Encounter for immunization Z23 [facility] [id number] [address] [place] [address] Apr, [facility] [address] [facility] [id number] [address] [place] [address] Apr, Body aches R52 and Acute chely opharyngitis J00 [facility] [address] [facility] [id number] [address] [place] [address] 24 Mar, 2018 Pure hypercholesterolemia E7 8.00 and Exertional chest pain R07.9 [place] [address] [facility] [id number] [address] [place] [address] Mar, Hyperlipidemia E78.5 ; Hyper tension I10 and Routine adult health maintenance Z00.00 [place] [address] [facility] [id number] [place] [address] Mar, Hypertension I10 ; Hyperlipi demia E78.5 ; Chest pain, exertional R07.9 and Routine adult health maintenance Z00.00 [place] [address] [id number] [address] [place] [address] Mar, [place] [id number] [place] [address] Mar, Lumbago with sciatica, left side M54.42 and Lumbago with sciatica, right side M54.41 [place] [id number] [id number] [address] [place] [address] Jan, [facility] [address] [id number] [address] [place] [address] Dec, Bipolar 2 disorder F31.81 ; Social anxiety disorder F40.10 and Chronic post-traumatic stress disorder (PTSD) F43.12 [place] [address] [id number] [address] [place] [address] Dec, [place] [id number] [address] [place] [address] Dec, [facility] [address] [id number] [address] [place] [address] Dec, Upper respiratory tract infe ction, unspecified type J06.9 [facility] [address] [facility] [id number] [address] [place] [address] October, [facility] [address] [facility] [id number] [address] [place] [address] Oct, Bipolar 2 disorder F31.81 ; Attention deficit disorder F90.0 ; Social anxiety disorder F40.10 and Chronic post-traumatic stress disorder (PTSD) F43.12 [facility] [address] [facility] [id number] [address] [place] [address] Oct, [facility] [address] [facility] [id number] [address] [place] [address] Oct, [facility] [address] [facility] [id number] [address] [place] [address] Aug, [place] [id number] [place] [address] Aug, [facility] [address] [id number] [address] [place] [address] Jul, Strain of lumbar region, ini tial encounter S39.012A [facility] [id number] [address] [place] [address] Jul, Lumbago with sciatica, left side M54.42 and Lumbago with sciatica, right side M54.41 [facility] [address] [facility] [id number] [address] [place] [address] Jul, Low back pain M54.5 and Othe r chronic pain G89.29 [facility] [address] [facility] [id number] [address] [place] [address] Jul, [facility] [address] [id number] [address] [place] [address] Jul, Bipolar 2 disorder F31.81 ; Attention deficit disorder F90.0 and Social anxiety disorder F40.10 [facility] [id number] [address] [place] [address] Jun, [facility] [address] [id number] [address] [place] [address] May, [facility] [address] [facility] [id number] [address] [place] [address] Apr, Bipolar 2 disorder F31.81 ; Attention deficit disorder F90.0 ; Social anxiety disorder F40.10 and Chronic post-traumatic stress disorder (PTSD) F43.12 [facility] [address] [facility] [id number] [address] [place] [address] Apr, [facility] [address] [facility] [id number] [address] [place] [address] Apr, Hyperlipidemia E78.5 [facility] [address] [facility] [id number] [address] [place] [address] Mar, Encounter for immunization Z 23 and Tinea cruris B35.6 [facility] [address] [facility] [id number] [address] [place] [address] Mar, [facility] [address] [facility] [id number] [address] [place] [address] Jan, [facility] [address] [facility] [id number] [address] [place] [address] Dec, [facility] [address] [facility] [id number] [address] [place] [address] Dec, [facility] [address] [facility] [id number] [address] [place] [address] Dec, Bipolar 2 disorder F31.81 ; Social anxiety disorder F40.10 and Attention deficit disorder F90.0 [facility] [address] [facility] [id number] [address] [place] [address] Dec, [facility] [address] [facility] [id number] [address] [place] [address] Dec, Hypertension I10 [facility] [address] [id number] [address] [place] [address] October, [facility] [address] [id number] [address] [place] [address] Oct, [facility] [address] [facility] [id number] [address] [place] [address] Oct, Nasal congestion R09.81 [facility] [address] [facility] [id number] [address] [place] [address] Oct, Social anxiety disorder F40. 10 ; Bipolar 2 disorder F31.81 and Attention deficit disorder F90.0 [facility] [address] [id number] [address] [place] [address] Aug, [facility] [address] [facility] [id number] [address] [place] [address] Aug, [facility] [address] [facility] [id number] [address] [place] [address] Jul, Nasal congestion R09.81 [facility] [address] [id number] [address] [place] [address] Jul, [facility] [address] [facility] [id number] [address] [place] [address] Jun, Bipolar 2 disorder F31.81 ; Attention deficit disorder F90.0 ; Social anxiety disorder F40.10 and Chronic post-traumatic stress disorder (PTSD) F43.12 [facility] [address] [facility] [id number] [address] [place] [address] Jun, [facility] [address] [facility] [id number] [address] [place] [address] May, [facility] [address] [facility] [id number] [address] [place] [address] 14 Apr, 2016 Attention deficit disorder F 90.0 [facility] [address] [facility] [id number] [address] [place] [address] 10 Apr, 2016 Urinary hesitancy R39.11 ; H yperlipidemia E78.5 and Encounter for immunization Z23 [facility] [address] [facility] [id number] [address] [place] [address] Apr, [facility] [address] [facility] [id number] [address] [place] [address] Mar, [facility] [id number] [place] [address] Jan, [facility] [address] [id number] [address] [place] [address] Dec, [facility] [address] [id number] [address] [place] [address] Dec, [facility] [id number] [place] [address] Dec, Bipolar 2 disorder F31.81 ; Attention deficit disorder F90.0 ; Posttraumatic stress disorder F43.10 and Social anxiety disorder F40.10 [facility] [id number] [address] [place] [address] Dec, Scabies exposure Z20.89 and Scabies B86 [facility] [id number] [address] [place] [address] Dec, [facility] [id number] [address] [place] [address] Dec, Hypertension I10 and Gastroe sophageal reflux disease without esophagitis K21.9 [facility] [id number] [place] [address] October, [facility] [id number] [address] [place] [address] October, [facility] [id number] [address] [place] [address] Oct, Bipolar 2 disorder F31.81 ; Posttraumatic stress disorder F43.10 ; Attention deficit disorder F90.0 and Social anxiety disorder F40.10 [facility] [address] [place] [address] Oct, [facility] [id number] [place] [address] Oct, Hypertension I10 and Nasal c ongestion R09.81 [facility] [address] [facility] [id number] [place] [address] Aug, [facility] [address] [address] Aug, [facility] [id number] [place] [address] Aug, [facility] [address] [address] Aug, [facility] [address] [address] Aug, [facility] [address] [address] Aug, Hypertension I10 and Tremor R25.1 [facility] [address] [address] Aug, Bipolar 2 disorder F31.81 ; Posttraumatic stress disorder F43.10 ; Attention deficit disorder F90.0 and Social anxiety disorder F40.10 [facility] [address] [address] Jul, [facility] [address] [address] Jul, Hyperlipidemia E78.5 [facility] [address] [address] Jul, Hypertension I10 and Hyperli pidemia E78.5 [facility] [id number] [address] [place] [address] Jun, Bipolar 2 disorder F31.81 ; Posttraumatic stress disorder F43.10 ; Attention deficit disorder F90.0 and Social anxiety disorder F40.10 [facility] [address] [facility] [id number] [address] [place] [address] May, [facility] [address] [facility] [id number] [address] [place] [address] May, [facility] [address] [facility] [id number] [address] [place] [address] Apr, Bipolar 2 disorder F31.81 ; Posttraumatic stress disorder F43.10 ; Attention deficit disorder F90.0 and Social phobia F40.10 [facility] [address] [facility] [id number] [address] [place] [address] Apr, Bipolar 2 disorder F31.81 ; Posttraumatic stress disorder F43.10 and Attention deficit disorder F90.0 [facility] [address] [facility] [id number] [address] [place] [address] Apr, [facility] [address] [facility] [id number] [address] [place] [address] Apr, [facility] [address] [facility] [id number] [address] [place] [address] Apr, [facility] [address] [facility] [id number] [address] [place] [address] Mar, [facility] [address] [facility] [id number] [address] [place] [address] Mar, [facility] [address] [facility] [id number] [address] [place] [address] Jan, [facility] [address] [facility] [id number] [address] [place] [address] Jan, [facility] [address] [facility] [id number] [address] [place] [address] Jan, Bipolar II disorder 296.89 ; Posttraumatic stress disorder 309.81 ; Social phobia 300.23 and Attention deficit disorder of childhood without mention of hyperactivity 314.00 [facility] [address] [facility] [id number] [address] [place] [address] Jan, Other and unspecified bipola r disorders 296.89 ; Posttraumatic stress disorder 309.81 and Attention deficit disorder of childhood without mention of hyperactivity 314.00 [facility] [address] [facility] [id number] [address] [place] [address] Jan, [facility] [address] [facility] [id number] [address] [place] [address] Dec, Other and unspecified bipola r disorders 296.89 ; Posttraumatic stress disorder 309.81 and Attention deficit disorder of childhood without mention of hyperactivity 314.00 [facility] [address] [facility] [id number] [address] [place] [address] Dec, Migraines 346.90 [facility] [address] [facility] [id number] [address] [place] [address] Dec, Other and unspecified bipola r disorders 296.89 ; Posttraumatic stress disorder 309.81 and Attention deficit disorder of childhood without mention of hyperactivity 314.00 [facility] [address] [facility] [id number] [address] [place] [address] Dec, [facility] [address] [facility] [id number] [address] [place] [address] Dec, Bipolar II disorder 296.89 ; Social phobia 300.23 ; Posttraumatic stress disorder 309.81 and Attention deficit disorder of childhood without mention of hyperactivity 314.00 [facility] [address] [facility] [id number] [address] [place] [address] Dec, Other and unspecified bipola r disorders 296.89 ; Posttraumatic stress disorder 309.81 and Attention deficit disorder of childhood without mention of hyperactivity 314.00 [facility] [address] [facility] [id number] [address] [place] [address] October, Other and unspecified bipola r disorders 296.89 ; Posttraumatic stress disorder 309.81 and Attention deficit disorder of childhood without mention of hyperactivity 314.00 [facility] [address] [facility] [id number] [address] [place] [address] October, [facility] [address] [facility] [id number] [address] [place] [address] October, [facility] [address] [id number] [address] [place] [address] October, [facility] [address] [id number] [address] [place] [address] October, [facility] [address] [id number] [address] [place] [address] October, Attention deficit disorder o f childhood without mention of hyperactivity 314.00 ; Posttraumatic stress disorder 309.81 ; Social phobia 300.23 and Other and unspecified bipolar disorders 296.89 [facility] [address] [id number] [address] [place] [address] Oct, [facility] [address] [id number] [address] [place] [address] Oct, [facility] [address] [id number] [address] [place] [address] Aug, [facility] [address] [id number] [address] [place] [address] Aug, [facility] [address] [id number] [address] [place] [address] Aug, [facility] [address] [id number] [address] [place] [address] Aug, [facility] [address] [id number] [address] [place] [address] Aug, [facility] [address] [id number] [address] [place] [address] Aug, [facility] [address] [id number] [address] [place] [address] Aug, [facility] [address] [id number] [address] [place] [address] Aug, [facility] [address] [id number] [address] [place] [address] 17 Aug, 2014 [facility] [address] [id number] [facility] [place] [address] 17 Aug, 2014 [facility] [address] [id number] [facility] [place] [address] 13 Aug, 2014 [facility] [address] [id number] [facility] [place] [address] 13 Aug, 2014 [facility] [address] [id number] [address] [place] [address], [place] [address] 12 Aug, 2014 [facility] [address] [id number] [address] [place] [address], [place] [address] Aug, [facility] [address] [id number] [address] [place] [address], [place] [address] Aug, [facility] [address] [id number] [address] [place] [address], [place] [address] Aug, [facility] [address] [id number] [address] [place] [address], [place] [address] Aug, [facility] [address] [id number] [address] [place] [address], [place] [address] Aug, [facility] [address] [id number] [address] [place] [address], [place] [address] Aug, [facility] [address] [id number] [address] [place] [address], [place] [address] Aug, [facility] [address] [id number] [address] [place] [address], [place] [address] 04 Aug, 2014 [facility] [address] [id number] [address] [place] [address], [place] [address] Aug, [facility] [address] [id number] [address] [place] [address], [place] [address] Aug, [facility] [address] [id number] [address] [place] [address], [place] [address] Aug, [facility] [address] [id number] [address] [place] [address], [place] [address] Aug, [address] [facility] [address] [id number] [address] [place] [address], [place] [address] Aug, [facility] [address] [id number] [address] [place] [address], [place] [address] Aug, [address] [facility] [address] [id number] [address] [place] [address], [place] [address] Aug, 2014 [facility] [address] [id number] [address] [place] [address], [place] [address] Aug, [facility] [address] [id number] [address] [place] [address], [place] [address] Aug, [facility] [address] [id number] [address] [place] [address], [place] [address] Jul, [facility] [address] [id number] [address] [place] [address], [place] [address] Jul, [facility] [address] [id number] [address] [place] [address], [place] [address] Jul, [facility] [address] [id number] [address] [place] [address], [place] [address] Jul, [facility] [address] [id number] [address] [place] [address], [place] [address] Jul, [facility] [address] [id number] [address] [place] [address], [place] [address] Jul, [facility] [address] [id number] [address] [place] [address], [place] [address] Jul, [facility] [address] [id number] [address] [place] [address], [place] [address] Jul, [facility] [address] [id number] [address] [place] [address], [place] [address] Jun, [facility] [address] [id number] [address] [place] [address], [place] [address] Jun, [facility] [address] [id number] [address] [place] [address] Jun, [facility] [address] [id number] [address] [place] [address] Jun, [facility] [address] [id number] [address] [place] [address] May, [facility] [address] [id number] [address] [place] [phone] May, [facility] [address] [id number] [address] [place] [id number] May, [facility] [address] [id number] [address] [place] [phone] May, [facility] [address] [id number] [address] [place] [phone] May, [facility] [address] [id number] [address] [place] [phone] Apr, [facility] [address] [id number] [address] [place] [phone] Apr, IMMUNIZATIONS No Known Immunizations SOCIAL HISTORY Never Assessed REASON FOR VISIT vyvanse 05/17/2018 PLAN OF CARE VITAL SIGNS MEDICATIONS Medication Instructions Dosage Frequency Start Date End Date Duration S tatus Vyvanse 30 MG Orally Once a day for ADHD 1 capsule in the morning Apr, 28 days Active RESULTS No Results PROCEDURES No Known procedures INSTRUCTIONS MEDICATIONS ADMINISTERED No Known Medications MEDICAL (GENERAL) HISTORY Type Description Date Medical History Hypertension Medical History GERD Medical History Bipolar Surgical History Hernia right ingual Surgical History Colonoscopy october 2014 Hospitalization History surgeries Hospitalization History ER for dehydration and vomitting 10/04/15
--- OUTSIDE RECORDS SUMMARY | 2019-11-11 19:11 | XMS REPORT ---
Author Author [place] Organization [facility] Address [address] [place] [address] Care Team Providers Care [employer] Technology Instructor Name Role Phone [place] JOH[place]ON Unavailable PROBLEMS Type Condition ICD9-CM Code [id number] Code Onset Dates Condition S tatus SNOMED Code Problem Hypertension I10 Active 9485591 3 Problem Gastroesophageal reflux disease without esophagitis K21.9 Active 365813335 Problem Hyperlipidemia E78.5 Active 32051 004 Problem Posttraumatic stress disorder F43.10 Active 59655426 Problem Bipolar 2 disorder F31.81 Active 8 2648549 Problem Attention deficit disorder F90.0 Act shalom 877651763 Problem Social anxiety disorder F40.10 Active 92584580 Problem Pure hypercholesterolemia E78.00 Acti ve 961734771 Problem Lumbago with sciatica, right side M54.41 Active [id number] Problem Chronic post-traumatic stress disorder (PTSD) F43. 12 Active 164462147 Problem Urinary hesitancy R39.11 Active 59 37221 Problem Lumbago with sciatica, left side M54.42 Active 385898101 Problem Other chronic pain G89.29 Active 8 [id number] ALLERGIES No Information ENCOUNTERS Encounter Location Date Diagnosis [facility] [address] [id number] [address] [place] [phone] May, [facility] [address] [id number] [address] [place] [phone] Apr, Body aches R52 and Acute chely opharyngitis J00 [facility] [address] [id number] [address] [place] [address] Mar, Pure hypercholesterolemia E7 8.00 and Exertional chest pain R07.9 [facility] [address] [id number] [address] [place] [phone] Mar, Hyperlipidemia E78.5 ; Hyper tension I10 and Routine adult health maintenance Z00.00 [facility] [address] [id number] [address] [place] [id number] 20 Mar, 2018 Hypertension I10 ; Hyperlipi demia E78.5 ; Chest pain, exertional R07.9 and Routine adult health maintenance Z00.00 [facility] [address] [id number] [address] [place] [phone] 17 Mar, 2018 [facility] [address] [id number] [address] [place] [phone] 04 Mar, 2018 Lumbago with sciatica, left side M54.42 and Lumbago with sciatica, right side M54.41 [facility] [address] [id number] [address] [place] [phone] Jan, [place] [address] [id number] [address] [place] [phone] Dec, Bipolar 2 disorder F31.81 ; Social anxiety disorder F40.10 and Chronic post-traumatic stress disorder (PTSD) F43.12 [facility] [address] [id number] [address] [place] [phone] Dec, [facility] [address] [facility] [id number] [address] [place] [phone] Dec, [facility] [address] [id number] [address] [place] [phone] Dec, Upper respiratory tract infe ction, unspecified type J06.9 [facility] [address] [id number] [address] [place] [phone] October, [facility] [address] [facility] [id number] [address] [place] [phone] Oct, Bipolar 2 disorder F31.81 ; Attention deficit disorder F90.0 ; Social anxiety disorder F40.10 and Chronic post-traumatic stress disorder (PTSD) F43.12 [facility] [address] [facility] [id number] [address] [place] [phone] Oct, [facility] [address] [id number] [address] [place] [phone] Oct, [facility] [address] [id number] [address] [place] [phone] Aug, [facility] [address] [facility] [id number] [address] [place] [phone] Aug, [facility] [address] [facility] [id number] [address] [place] [phone] Jul, Strain of lumbar region, ini tial encounter S39.012A [facility] [address] [facility] [id number] [address] [place] [address] Jul, Lumbago with sciatica, left side M54.42 and Lumbago with sciatica, right side M54.41 [facility] [address] [facility] [id number] [address] [place] [phone] Jul, Low back pain M54.5 and Othe r chronic pain G89.29 [facility] [address] [facility] [id number] [address] [place] [phone] Jul, [facility] [address] [facility] [id number] [address] [place] [id number] Jul, Bipolar 2 disorder F31.81 ; Attention deficit disorder F90.0 and Social anxiety disorder F40.10 [facility] [address] [facility] [id number] [address] [place] [phone] Jun, [facility] [address] [facility] [id number] [address] [place] [phone] May, [facility] [address] [facility] [id number] [address] [place] [phone] Apr, Bipolar 2 disorder F31.81 ; Attention deficit disorder F90.0 ; Social anxiety disorder F40.10 and Chronic post-traumatic stress disorder (PTSD) F43.12 [facility] [address] [facility] [id number] [address] [place] [phone] Apr, [facility] [address] [facility] [id number] [address] [place] [phone] Apr, Hyperlipidemia E78.5 [facility] [address] [facility] [id number] [address] [place] [phone] 27 Mar, 2017 Encounter for immunization Z 23 and Tinea cruris B35.6 [facility] [address] [facility] [id number] [address] [place] [phone] 15 Mar, 2017 [facility] [address] [facility] [id number] [address] [place] [phone] Jan, [facility] [address] [facility] [id number] [address] [place] [phone] Dec, [facility] [address] [facility] [id number] [address] [place] [phone] Dec, [facility] [address] [facility] [id number] [address] [place] [phone] Dec, Bipolar 2 disorder F31.81 ; Social anxiety disorder F40.10 and Attention deficit disorder F90.0 [facility] [address] [facility] [id number] [address] [place] [phone] Dec, [facility] [address] [facility] [id number] [address] [place] [phone] Dec, Hypertension I10 [facility] [address] [facility] [id number] [address] [place] [phone] October, [facility] [address] [facility] [id number] [address] [place] [phone] Oct, [facility] [address] [facility] [id number] [address] [place] [phone] Oct, Nasal congestion R09.81 [facility] [address] [facility] [id number] [address] [place] [phone] Oct, Social anxiety disorder F40. 10 ; Bipolar 2 disorder F31.81 and Attention deficit disorder F90.0 [facility] [address] [facility] [id number] [address] [place] [phone] Aug, [facility] [address] [facility] [id number] [address] [place] [phone] Aug, [facility] [address] [id number] [address] [place] [address] Jul, Nasal congestion R09.81 [facility] [id number] [address] [place] [address] Jul, [facility] [id number] [address] [place] [phone] Jun, Bipolar 2 disorder F31.81 ; Attention deficit disorder F90.0 ; Social anxiety disorder F40.10 and Chronic post-traumatic stress disorder (PTSD) F43.12 [facility] [id number] [place] [address] Jun, [facility] [address] [address] May, [facility] [address] [phone] 14 Apr, 2016 Attention deficit disorder F 90.0 [facility] [id number] [place] [address] 10 Apr, 2016 Urinary hesitancy R39.11 ; H yperlipidemia E78.5 and Encounter for immunization Z23 [facility] [id number] [address] [place] [phone] Apr, [facility] [id number] [place] [phone] Mar, [facility] [id number] [address] [place] [phone] Jan, [facility] [id number] [address] [place] [phone] Dec, [facility] [address] [facility] [id number] [address] [place] [phone] Dec, [facility] [id number] [place] [address] Dec, Bipolar 2 disorder F31.81 ; Attention deficit disorder F90.0 ; Posttraumatic stress disorder F43.10 and Social anxiety disorder F40.10 [facility] [address] [facility] [id number] [address] [place] [phone] Dec, Scabies exposure Z20.89 and Scabies B86 [facility] [address] [facility] [id number] [address] [place] [phone] Dec, [facility] [address] [phone] Dec, Hypertension I10 and Gastroe sophageal reflux disease without esophagitis K21.9 [facility] [id number] [place] [phone] October, [facility] [id number] [address] [place] [phone] October, [facility] [id number] [place] [address] Oct, Bipolar 2 disorder F31.81 ; Posttraumatic stress disorder F43.10 ; Attention deficit disorder F90.0 and Social anxiety disorder F40.10 [facility] [id number] [place] [address] Oct, [facility] [id number] [address] [place] [phone] Oct, Hypertension I10 and Nasal c ongestion R09.81 [facility] [address] [facility] [id number] [address] [place] [phone] Aug, [facility] [id number] [address] [place] [phone] Aug, [facility] [address] [place] [address] Aug, [facility] [address] [facility] [id number] [address] [place] [phone] Aug, [facility] [address] [facility] [id number] [address] [place] [phone] Aug, [facility] [id number] [place] [address] Aug, Hypertension I10 and Tremor R25.1 [facility] [address] [facility] [id number] [address] [place] [address] Aug, Bipolar 2 disorder F31.81 ; Posttraumatic stress disorder F43.10 ; Attention deficit disorder F90.0 and Social anxiety disorder F40.10 [facility] [id number] [address] [place] [phone] Jul, [facility] [address] [address] Jul, Hyperlipidemia E78.5 [facility] [id number] [place] [address] Jul, Hypertension I10 and Hyperli pidemia E78.5 [facility] [id number] [address] [place] [address] Jun, Bipolar 2 disorder F31.81 ; Posttraumatic stress disorder F43.10 ; Attention deficit disorder F90.0 and Social anxiety disorder F40.10 [facility] [address] [facility] [id number] [address] [place] [phone] May, [facility] [address] [address] May, [facility] [id number] [address] [place] [address] Apr, Bipolar 2 disorder F31.81 ; Posttraumatic stress disorder F43.10 ; Attention deficit disorder F90.0 and Social phobia F40.10 [facility] [address] [facility] [id number] [address] [place] [phone] Apr, Bipolar 2 disorder F31.81 ; Posttraumatic stress disorder F43.10 and Attention deficit disorder F90.0 [facility] [address] [id number] [address] [place] [phone] Apr, [facility] [address] [facility] [id number] [address] [place] [phone] Apr, [facility] [address] [id number] [address] [place] [phone] Apr, [facility] [address] [id number] [address] [place] [phone] Mar, [facility] [address] [facility] [id number] [address] [place] [phone] Mar, [facility] [address] [facility] [id number] [address] [place] [phone] Jan, [facility] [address] [facility] [id number] [address] [place] [phone] Jan, [facility] [address] [facility] [id number] [address] [place] [address] Jan, Bipolar II disorder 296.89 ; Posttraumatic stress disorder 309.81 ; Social phobia 300.23 and Attention deficit disorder of childhood without mention of hyperactivity 314.00 [facility] [address] [facility] [id number] [address] [place] [phone] Jan, Other and unspecified bipola r disorders 296.89 ; Posttraumatic stress disorder 309.81 and Attention deficit disorder of childhood without mention of hyperactivity 314.00 [facility] [address] [facility] [id number] [address] [place] [address] Jan, [facility] [address] [facility] [id number] [address] [place] [phone] Dec, Other and unspecified bipola r disorders 296.89 ; Posttraumatic stress disorder 309.81 and Attention deficit disorder of childhood without mention of hyperactivity 314.00 [facility] [address] [id number] [address] [place] [address] Dec, Migraines 346.90 [facility] [address] [facility] [id number] [address] [place] [address] Dec, Other and unspecified bipola r disorders 296.89 ; Posttraumatic stress disorder 309.81 and Attention deficit disorder of childhood without mention of hyperactivity 314.00 [facility] [address] [facility] [id number] [address] [place] [phone] Dec, [facility] [address] [facility] [id number] [address] [place] [address] Dec, Bipolar II disorder 296.89 ; Social phobia 300.23 ; Posttraumatic stress disorder 309.81 and Attention deficit disorder of childhood without mention of hyperactivity 314.00 [facility] [address] [facility] [id number] [address] [place] [phone] Dec, Other and unspecified bipola r disorders 296.89 ; Posttraumatic stress disorder 309.81 and Attention deficit disorder of childhood without mention of hyperactivity 314.00 [facility] [address] [facility] [id number] [address] [place] [address] October, Other and unspecified bipola r disorders 296.89 ; Posttraumatic stress disorder 309.81 and Attention deficit disorder of childhood without mention of hyperactivity 314.00 [facility] [address] [facility] [id number] [address] [place] [address] October, [facility] [address] [facility] [id number] [address] [place] [phone] October, [facility] [address] [facility] [id number] [address] [place] [phone] October, [facility] [address] [facility] [id number] [address] [place] [address] October, [facility] [address] [facility] [id number] [address] [place] [phone] October, Attention deficit disorder o f childhood without mention of hyperactivity 314.00 ; Posttraumatic stress disorder 309.81 ; Social phobia 300.23 and Other and unspecified bipolar disorders 296.89 [facility] [address] [id number] [address] [place] [address], [place] [address] 14 Oct, 2014 [facility] [address] [id number] [address] [place] [phone] 13 Oct, 2014 [facility] [address] [id number] [address] [place] [phone] 26 Aug, 2014 [facility] [address] [id number] [address] [place] [phone] 26 Aug, 2014 [facility] [address] [id number] [address] [place] [phone] 24 Aug, 2014 [facility] [address] [id number] [address] [place] [phone] 24 Aug, 2014 [facility] [address] [id number] [address] [place] [address] 17 Aug, 2014 [facility] [address] [id number] [address] [place] [phone] 17 Aug, 2014 [facility] [address] [id number] [address] [place] [phone] 17 Aug, 2014 [facility] [address] [id number] [address] [place] [phone] 17 Aug, 2014 [facility] [address] [id number] [address] [place] [phone] 17 Aug, 2014 [facility] [address] [id number] [address] [place] [phone] 17 Aug, 2014 [facility] [address] [id number] [address] [place] [phone] 13 Aug, 2014 [facility] [address] [id number] [address] [place] [phone] 13 Aug, 2014 [facility] [address] [id number] [address] [place] [phone] 12 Aug, 2014 [facility] [address] [id number] [facility] [place] [address] 12 Aug, 2014 [facility] [address] [id number] [address] [place] [address], [place] [address] Aug, [facility] [address] [id number] [address] [place] [address], [place] [phone] Aug, [facility] [address] [id number] [address] [place] [address], [place] [address] Aug, [facility] [address] [id number] [address] [place] [address], [place] [address] Aug, [facility] [address] [id number] [address] [place] [address], [place] [address] Aug, [facility] [address] [id number] [address] [place] [address], [place] [address] Aug, [facility] [address] [id number] [address] [place] [address], [place] [address] Aug, [facility] [address] [id number] [address] [place] [address], [place] [address] Aug, [facility] [address] [id number] [address] [place] [address], [place] [address] Aug, [facility] [address] [id number] [address] [place] [address], [place] [address] Aug, [facility] [address] [id number] [address] [place] [address], [place] [address] Aug, [facility] [address] [id number] [address] [place] [address], [place] [address] Aug, [facility] [address] [id number] [address] [place] [address], [place] [id number] Aug, [facility] [address] [id number] [address] [place] [address], [place] [id number] Aug, [facility] [address] [id number] [address] [place] [address], [place] [id number] Aug, [facility] [address] [id number] [address] [place] [address], [place] [id number] Aug, [facility] [address] [id number] [address] [place] [address], [place] [id number] Jul, [facility] [address] [id number] [address] [place] [address], [place] [id number] Jul, [facility] [address] [id number] [address] [place] [address], [place] [id number] Jul, [facility] [address] [id number] [address] [place] [address], [place] [id number] Jul, [facility] [address] [id number] [address] [place] [address], [place] [id number] Jul, [facility] [address] [id number] [address] [place] [address], [place] [id number] Jul, [facility] [address] [id number] [address] [place] [address], [place] [id number] Jul, [facility] [address] [id number] [address] [place] [address], [place] [id number] Jul, [facility] [address] [id number] [address] [place] [address], [place] [id number] Jun, [facility] [address] [id number] [address] [place] [address], [place] [address] Jun, [facility] [address] [id number] [address] [place] [address], [place] [id number] Jun, [facility] [address] [id number] [address] [place] [address], [place] [id number] Jun, [facility] [address] [id number] [address] [place] [address], [place] [id number] May, [facility] [address] [id number] [address] [place] [address], [place] [id number] May, [facility] [address] [id number] [address] [place] [id number] May, [facility] [address] [facility] [id number] [address] [place] [id number] May, [facility] [address] [facility] [id number] [address] [place] [address] [id number] May, [facility] [address] [facility] [id number] [address] [place] [id number] Apr, [facility] [address] [facility] [id number] [address] [place] [id number] Apr, IMMUNIZATIONS No Known Immunizations SOCIAL HISTORY Never Assessed REASON FOR VISIT PLAN OF CARE VITAL SIGNS MEDICATIONS Medication Instructions Dosage Frequency Start Date End Date Duration S tatus Atorvastatin Calcium 40 MG Orally Once a day 1 tablet 24h Active RESULTS No Results PROCEDURES No Known procedures INSTRUCTIONS MEDICATIONS ADMINISTERED No Known Medications MEDICAL (GENERAL) HISTORY Type Description Date Medical History Hypertension Medical History GERD Medical History Bipolar Surgical History Hernia right ingual Surgical History Colonoscopy october 2014 Hospitalization History surgeries Hospitalization History ER for dehydration and vomitting 10/04/15
--- OUTSIDE RECORDS SUMMARY | 2019-11-11 19:11 | XMS REPORT ---
Author Author [place] Organization [facility] Address [address] [place] [address] Care Team Providers Care Vp Transportation Name Role Phone FLEX GUILLERMO Unavailable PROBLEMS Type Condition ICD9-CM Code LQN31-BI Code Onset Dates Condition S tatus SNOMED Code Problem Hypertension I10 Active 6199893 3 Problem Gastroesophageal reflux disease without esophagitis K21.9 Active 833842395 Problem Hyperlipidemia E78.5 Active 73714 004 Problem Posttraumatic stress disorder F43.10 Active 84059522 Problem Bipolar 2 disorder F31.81 Active 8 1628246 Problem Attention deficit disorder F90.0 Act shalom 614741853 Problem Social anxiety disorder F40.10 Active 06721443 Problem Pure hypercholesterolemia E78.00 Acti ve 941136250 Problem Lumbago with sciatica, right side M54.41 Active 120940098477166 Problem Chronic post-traumatic stress disorder (PTSD) F43. 12 Active 200882545 Problem Urinary hesitancy R39.11 Active 59 84301 Problem Lumbago with sciatica, left side M54.42 Active 180611459 Problem Other chronic pain G89.29 Active 8 8585227 ALLERGIES Substance Reaction Event Type Date Status Codeine Sulfate disoriented Drug Allergy May, Active Augmentin stomach upset Drug Allergy May, Active ENCOUNTERS Encounter Location Date Diagnosis [facility] [address] [facility] [id number] [address] [place] [id number] Aug, [facility] [address] [facility] [id number] [address] [place] [address] May, [facility] [address] [facility] [id number] [address] [place] [address] May, [facility] [address] [facility] [id number] [address] [place] [address] May, Bipolar 2 disorder F31.81 ; Social anxiety disorder F40.10 ; Chronic post-traumatic stress disorder (PTSD) F43.12 ; Attention deficit disorder F90.0 and Encounter for immunization Z23 [facility] [address] [address] Apr, [facility] [address] [place] [id number] [place] [address] Apr, Body aches R52 and Acute chely opharyngitis J00 [facility] [address] [address] [id number] [place] [address] 24 Mar, 2018 Pure hypercholesterolemia E7 8.00 and Exertional chest pain R07.9 [place] [address] [id number] 21 Mar, 2018 Hyperlipidemia E78.5 ; Hyper tension I10 and Routine adult health maintenance Z00.00 [place] [address] [id number] 20 Mar, 2018 Hypertension I10 ; Hyperlipi demia E78.5 ; Chest pain, exertional R07.9 and Routine adult health maintenance Z00.00 [facility] [address] [address] 17 Mar, 2018 [place] [address] [id number] 04 Mar, 2018 Lumbago with sciatica, left side M54.42 and Lumbago with sciatica, right side M54.41 [facility] [address] [place] [id number] [address] [place] [address] Jan, [place] [address] [address] Dec, Bipolar 2 disorder F31.81 ; Social anxiety disorder F40.10 and Chronic post-traumatic stress disorder (PTSD) F43.12 [place] [address] [address] Dec, [place] [address] [facility] [id number] [address] [place] [phone] Dec, [facility] [address] [facility] [id number] [address] [place] [address] Dec, Upper respiratory tract infe ction, unspecified type J06.9 [facility] [address] [facility] [id number] [address] [place] [address] October, [facility] [address] [facility] [id number] [address] [place] [address] Oct, Bipolar 2 disorder F31.81 ; Attention deficit disorder F90.0 ; Social anxiety disorder F40.10 and Chronic post-traumatic stress disorder (PTSD) F43.12 [facility] [address] [place] [id number] [address] [place] [address] Oct, [place] [address] [place] [id number] [place] [address] Oct, [facility] [address] [place] [id number] [address] [place] [phone] Aug, [facility] [address] [place] [id number] [address] [place] [address] Aug, [facility] [address] [place] [id number] [address] [place] [address] Jul, Strain of lumbar region, ini tial encounter S39.012A [facility] [address] [facility] [id number] [address] [place] [address] Jul, Lumbago with sciatica, left side M54.42 and Lumbago with sciatica, right side M54.41 [facility] [address] [facility] [id number] [address] [place] [address] Jul, Low back pain M54.5 and Othe r chronic pain G89.29 [facility] [address] [facility] [id number] [address] [place] [address] Jul, [facility] [address] [place] [id number] [address] [place] [address] Jul, Bipolar 2 disorder F31.81 ; Attention deficit disorder F90.0 and Social anxiety disorder F40.10 [facility] [address] [place] [id number] [address] [place] [address] Jun, [facility] [address] [place] [id number] [place] [address] May, [facility] [address] [place] [id number] [place] [address] Apr, Bipolar 2 disorder F31.81 ; Attention deficit disorder F90.0 ; Social anxiety disorder F40.10 and Chronic post-traumatic stress disorder (PTSD) F43.12 [facility] [address] [place] [id number] [place] [address] Apr, [facility] [address] [address] Apr, Hyperlipidemia E78.5 [facility] [address] [facility] [id number] [address] [place] [address] Mar, Encounter for immunization Z 23 and Tinea cruris B35.6 [facility] [address] [place] [id number] [address] [place] [address] Mar, [facility] [address] [place] [id number] [address] [place] [address] Jan, [facility] [address] [place] [id number] [address] [place] [id number] Dec, [facility] [address] [facility] [id number] [address] [place] [address] Dec, [facility] [address] [place] [id number] [address] [place] [address] Dec, Bipolar 2 disorder F31.81 ; Social anxiety disorder F40.10 and Attention deficit disorder F90.0 [facility] [address] [place] [id number] [address] [place] [phone] Dec, [facility] [address] [id number] [address] [place] [phone] Dec, Hypertension I10 [facility] [address] [facility] [id number] [address] [place] [address] October, [facility] [address] [facility] [id number] [address] [place] [phone] Oct, [facility] [address] [facility] [id number] [address] [place] [phone] Oct, Nasal congestion R09.81 [facility] [address] [place] [id number] [address] [place] [address] Oct, Social anxiety disorder F40. 10 ; Bipolar 2 disorder F31.81 and Attention deficit disorder F90.0 [facility] [address] [facility] [id number] [address] [place] [phone] Aug, [facility] [address] [facility] [id number] [address] [place] [address] Aug, [facility] [address] [facility] [id number] [address] [place] [address] Jul, Nasal congestion R09.81 [facility] [address] [facility] [id number] [address] [place] [phone] Jul, [facility] [address] [facility] [id number] [address] [place] [phone] Jun, Bipolar 2 disorder F31.81 ; Attention deficit disorder F90.0 ; Social anxiety disorder F40.10 and Chronic post-traumatic stress disorder (PTSD) F43.12 [facility] [address] [facility] [id number] [address] [place] [address] Jun, [facility] [address] [facility] [id number] [address] [place] [phone] May, [facility] [address] [facility] [id number] [address] [place] [address] Apr, Attention deficit disorder F 90.0 [facility] [address] [facility] [id number] [address] [place] [address] Apr, Urinary hesitancy R39.11 ; H yperlipidemia E78.5 and Encounter for immunization Z23 [facility] [address] [facility] [id number] [address] [place] [id number] Apr, [facility] [address] [facility] [id number] [address] [place] [address] Mar, [facility] [address] [facility] [id number] [address] [place] [id number] Jan, [facility] [address] [address] Dec, [facility] [address] [address] Dec, [facility] [address] [address] Dec, Bipolar 2 disorder F31.81 ; Attention deficit disorder F90.0 ; Posttraumatic stress disorder F43.10 and Social anxiety disorder F40.10 [facility] [address] [place] [id number] [address] [place] [address] Dec, Scabies exposure Z20.89 and Scabies B86 [facility] [address] [place] [id number] [place] [phone] Dec, [facility] [address] [place] [id number] [address] [place] [phone] Dec, Hypertension I10 and Gastroe sophageal reflux disease without esophagitis K21.9 [facility] [address] [place] [id number] [address] [place] [phone] October, [facility] [address] [place] [id number] [address] [place] [id number] October, [facility] [address] [address] Oct, Bipolar 2 disorder F31.81 ; Posttraumatic stress disorder F43.10 ; Attention deficit disorder F90.0 and Social anxiety disorder F40.10 [facility] [address] [facility] [id number] [address] [place] [phone] Oct, [facility] [address] [facility] [id number] [address] [place] [phone] Oct, Hypertension I10 and Nasal c ongestion R09.81 [facility] [address] [facility] [id number] [address] [place] [address] Aug, [facility] [address] [facility] [id number] [place] [address] Aug, [facility] [address] [facility] [id number] [place] [id number] Aug, [facility] [address] [place] [id number] [place] [address] Aug, [facility] [address] [place] [id number] [address] [place] [phone] Aug, [facility] [address] [place] [id number] [place] [address] Aug, Hypertension I10 and Tremor R25.1 [facility] [address] [place] [id number] [address] [place] [address] Aug, Bipolar 2 disorder F31.81 ; Posttraumatic stress disorder F43.10 ; Attention deficit disorder F90.0 and Social anxiety disorder F40.10 [facility] [address] [facility] [id number] [address] [place] [address] Jul, [facility] [address] [place] [id number] [place] [address] Jul, Hyperlipidemia E78.5 [facility] [address] [facility] [id number] [address] [place] [address] Jul, Hypertension I10 and Hyperli pidemia E78.5 [facility] [address] [facility] [id number] [address] [place] [address] Jun, Bipolar 2 disorder F31.81 ; Posttraumatic stress disorder F43.10 ; Attention deficit disorder F90.0 and Social anxiety disorder F40.10 [facility] [address] [id number] [address] [place] [phone] May, [facility] [address] [id number] [address] [place] [phone] May, [facility] [address] [facility] [id number] [address] [place] [address] Apr, Bipolar 2 disorder F31.81 ; Posttraumatic stress disorder F43.10 ; Attention deficit disorder F90.0 and Social phobia F40.10 [facility] [address] [facility] [id number] [address] [place] [address] Apr, Bipolar 2 disorder F31.81 ; Posttraumatic stress disorder F43.10 and Attention deficit disorder F90.0 [facility] [address] [facility] [id number] [address] [place] [phone] Apr, [facility] [address] [id number] [address] [place] [phone] Apr, [facility] [address] [facility] [id number] [address] [place] [id number] Apr, [facility] [address] [facility] [id number] [address] [place] [phone] Mar, [facility] [address] [id number] [address] [place] [phone] Mar, [facility] [address] [facility] [id number] [address] [place] [phone] Jan, [facility] [address] [id number] [address] [place] [address] Jan, [facility] [address] [facility] [id number] [address] [place] [address] Jan, Bipolar II disorder 296.89 ; Posttraumatic stress disorder 309.81 ; Social phobia 300.23 and Attention deficit disorder of childhood without mention of hyperactivity 314.00 [facility] [address] [facility] [id number] [address] [place] [address] Jan, Other and unspecified bipola r disorders 296.89 ; Posttraumatic stress disorder 309.81 and Attention deficit disorder of childhood without mention of hyperactivity 314.00 [facility] [address] [facility] [id number] [address] [place] [address] Jan, [facility] [address] [facility] [id number] [address] [place] [address] Dec, Other and unspecified bipola r disorders 296.89 ; Posttraumatic stress disorder 309.81 and Attention deficit disorder of childhood without mention of hyperactivity 314.00 [facility] [address] [place] [id number] [address] [place] [address] Dec, Migraines 346.90 [facility] [address] [facility] [id number] [address] [place] [address] Dec, Other and unspecified bipola r disorders 296.89 ; Posttraumatic stress disorder 309.81 and Attention deficit disorder of childhood without mention of hyperactivity 314.00 [facility] [address] [place] [id number] [address] [place] [address] Dec, [facility] [address] [facility] [id number] [address] [place] [address] Dec, Bipolar II disorder 296.89 ; Social phobia 300.23 ; Posttraumatic stress disorder 309.81 and Attention deficit disorder of childhood without mention of hyperactivity 314.00 [facility] [address] [facility] [id number] [address] [place] [address] Dec, Other and unspecified bipola r disorders 296.89 ; Posttraumatic stress disorder 309.81 and Attention deficit disorder of childhood without mention of hyperactivity 314.00 [facility] [address] [facility] [id number] [address] [place] [address] October, Other and unspecified bipola r disorders 296.89 ; Posttraumatic stress disorder 309.81 and Attention deficit disorder of childhood without mention of hyperactivity 314.00 [facility] [address] [id number] [address] [place] [address] October, [facility] [address] [id number] [address] [place] [address] October, [facility] [address] [id number] [address] [place] [phone] October, [facility] [address] [id number] [address] [place] [phone] October, [facility] [address] [id number] [address] [place] [address] October, Attention deficit disorder o f childhood without mention of hyperactivity 314.00 ; Posttraumatic stress disorder 309.81 ; Social phobia 300.23 and Other and unspecified bipolar disorders 296.89 [facility] [address] [id number] [address] [place] [address] Oct, [facility] [address] [id number] [address] [place] [phone] Oct, [facility] [address] [id number] [address] [place] [address] Aug, [facility] [address] [id number] [address] [place] [phone] Aug, [facility] [address] [id number] [address] [place] [phone] Aug, [facility] [address] [id number] [address] [place] [phone] Aug, [facility] [address] [id number] [address] [place] [address] Aug, [facility] [address] [id number] [address] [place] [phone] Aug, [facility] [address] [id number] [address] [place] [phone] Aug, [facility] [address] [id number] [facility] [place] [address] 17 Aug, 2014 [facility] [address] [id number] [facility] [place] [address] 17 Aug, 2014 [facility] [address] [id number] [facility] [place] [address] 17 Aug, 2014 [facility] [address] [id number] [address] [place] [address], [place] [address] 13 Aug, 2014 [facility] [address] [id number] [address] [place] [address], [place] [address] 13 Aug, 2014 [facility] [address] [id number] [address] [place] [address], [place] [address] 12 Aug, 2014 [facility] [address] [id number] [address] [place] [address], [place] [address] Aug, [facility] [address] [id number] [address] [place] [address], [place] [address] Aug, [facility] [address] [id number] [address] [place] [address], [place] [address] Aug, [facility] [address] [id number] [address] [place] [address], [place] [address] Aug, [facility] [address] [id number] [address] [place] [address], [place] [address] Aug, [facility] [address] [id number] [address] [place] [address], [place] [address] Aug, [facility] [address] [id number] [address] [place] [address], [place] [address] Aug, [facility] [address] [id number] [address] [place] [address], [place] [address] 04 Aug, 2014 [facility] [address] [id number] [address] [place] [address], [place] [address] 04 Aug, 2014 [facility] [address] [id number] [address] [place] [address], [place] [address] Aug, [facility] [address] [id number] [address] [place] [address], [place] [address] Aug, [facility] [address] [id number] [address] [place] [address], [place] [address] Aug, 2014 [facility] [address] [id number] [address] [place] [address], [place] [address] Aug, [facility] [address] [id number] [address] [place] [address], [place] [address] Aug, [facility] [address] [id number] [address] [place] [address], [place] [address] Aug, [facility] [address] [id number] [address] [place] [address], [place] [address] Aug, [facility] [address] [id number] [address] [place] [address], [place] [address] Aug, [facility] [address] [id number] [address] [place] [address], [place] [address] Jul, [facility] [address] [id number] [address] [place] [address], [place] [address] Jul, [facility] [address] [id number] [address] [place] [address], [place] [address] Jul, [facility] [address] [id number] [address] [place] [address], [place] [address] Jul, [facility] [address] [id number] [address] [place] [address], [place] [address] Jul, [facility] [address] [id number] [address] [place] [address], [place] [address] Jul, [facility] [address] [id number] [address] [place] [address], [place] [address] Jul, [facility] [address] [id number] [address] [place] [address], [place] [address] Jul, [facility] [address] [id number] [address] [place] [id number] Jun, [facility] [address] [id number] [address] [place] [id number] Jun, [facility] [address] [id number] [address] [place] [address] Jun, [facility] [address] [id number] [address] [place] [id number] Jun, [facility] [address] [id number] [address] [place] [id number] May, [facility] [address] [id number] [address] [place], [place] [phone] May, [facility] [address] [id number] [address] [place] [phone] May, [facility] [address] [id number] [address] [place] [phone] May, [facility] [address] [id number] [address] [place] [phone] May, [facility] [address] [id number] [address] [place] [phone] Apr, [facility] [address] [id number] [address] [place] [phone] Apr, IMMUNIZATIONS Vaccine Route Administration Date Status FLULAVAL QUAD 0.5ML (6 MO & UP) 2018 IM Intramuscular May 03 Administered SOCIAL HISTORY Never Assessed REASON FOR VISIT f/u Jose A, contract, PDM, ADHD/Anxiety/Mood PLAN OF CARE Activity Details Follow Up 3 Months Reason: VITAL SIGNS Height 64 in 2018-05-03 Weight 150.7 lbs 2018-05-03 Heart Rate 92 bpm 2018-05-03 Respiratory Rate 20 2018-05-03 BMI 25.86 kg/m2 2018-05-03 Blood pressure systolic 124 mmHg 2018-05-03 Blood pressure diastolic 80 mmHg 2018-05-03 MEDICATIONS Medication Instructions Dosage Frequency Start Date End Date Duration S tatus Multivitamin 1 tablet by Oral route 1 time per day 30 Oc 2013 Active Vyvanse 30 MG Orally Once a day for ADHD 1 capsule in the morning 17 Apr, 2018 Active Aspirin 325 mg 1 tablet by Oral route 1 time per day 30 Apr, 2014 Active Omeprazole 20 MG TAKE ONE CAPSULE BY MOUTH ONCE DAILY 30 Active Vitamin C 500 mg 1 tablet by Oral route 1 time per day 3 0 Apr, 2014 Active Lisinopril 20 MG TAKE ONE TABLET BY MOUTH ONCE DAILY 30 Active Lamotrigine 200 MG TAKE ONE TABLET BY M OUTH ONCE DAILY IN THE EVENING FOR DEPRESSION 30 Active Atorvastatin Calcium 40 MG Orally Once a day 1 tablet 24h Active Vitamin D3 5000 UNIT Orally Once a day 1 capsule 24h 30 Apr, 2014 Active RESULTS No Results PROCEDURES Procedure Date Ordered Result Body Site Psychotherapy, patient &/family, with E&M, 30 minutes, established patient May 03, 2018 FLULAVAL QUAD 0.5ML (6 MO AND UP) 2017May 03, 2018 09 PANEL (PROFILE 1) May 03, 2018 SINGLE IMMUNIZATION ADMIN May 03, 2018 INSTRUCTIONS MEDICATIONS ADMINISTERED No Known Medications MEDICAL (GENERAL) HISTORY Type Description Date Medical History Hypertension Medical History GERD Medical History Bipolar Surgical History Hernia right ingual Surgical History Colonoscopy october 2014 Hospitalization History surgeries Hospitalization History [facility] for [facility] and vom[facility] 10/04/15
--- OUTSIDE RECORDS SUMMARY | 2019-11-11 19:12 | XMS REPORT ---
Author Author [place] [facility] Address [address] [place] [address] Care Team Providers Care Senior Accounts Payable Specialist Name Role Phone FLEX GUILLERMO Unavailable PROBLEMS Type Condition ICD9-CM Code [id number] Code Onset Dates Condition S tatus SNOMED Code Problem Social anxiety disorder F40.10 Active 20973452 Problem Hyperlipidemia E78.5 Active 12077 004 Problem Hypertension I10 Active 4603789 3 Problem Posttraumatic stress disorder F43.10 Active 65793428 Problem Bipolar 2 disorder F31.81 Active 8 2450463 Problem Attention deficit disorder F90.0 Act shalom 142045854 Problem Lumbago with sciatica, right side M54.41 Active [id number] Problem Lumbago with sciatica, left side M54.42 Active 994802712 Problem Urinary hesitancy R39.11 Active 59 95163 Problem Gastroesophageal reflux disease without esophagitis K21.9 Active 180552221 Problem Other chronic pain G89.29 Active 8 2638616 Problem Chronic post-traumatic stress disorder (PTSD) F43. 12 Active [id number] ALLERGIES No Information ENCOUNTERS Encounter Location Date Diagnosis [facility] [address] [id number] [address] [place] [phone] May, [facility] [address] [id number] [address] [place] [address] Mar, Hyperlipidemia E78.5 ; Hyper tension I10 and Routine adult health maintenance Z00.00 [facility] [address] [id number] [address] [place] [address] Mar, Hypertension I10 ; Hyperlipi demia E78.5 ; Chest pain, exertional R07.9 and Routine adult health maintenance Z00.00 [facility] [address] [facility] [id number] [address] [place] [address] Mar, [facility] [address] [id number] [address] [place] [address] Mar, Lumbago with sciatica, left side M54.42 and Lumbago with sciatica, right side M54.41 [facility] [address] [id number] [address] [place] [address] Jan, [facility] [address] [facility] [id number] [address] [place] [address] Dec, Bipolar 2 disorder F31.81 ; Social anxiety disorder F40.10 and Chronic post-traumatic stress disorder (PTSD) F43.12 [facility] [address] [id number] [address] [place] [address] Dec, [facility] [address] [id number] [address] [place] [phone] Dec, [facility] [address] [facility] [id number] [address] [place] [address] Dec, Upper respiratory tract infe ction, unspecified type J06.9 [facility] [address] [id number] [address] [place] [address] October, [facility] [address] [facility] [id number] [address] [place] [address] Oct, Bipolar 2 disorder F31.81 ; Attention deficit disorder F90.0 ; Social anxiety disorder F40.10 and Chronic post-traumatic stress disorder (PTSD) F43.12 [facility] [address] [id number] [address] [place] [address] Oct, [facility] [address] [id number] [address] [place] [address] Oct, [facility] [address] [facility] [id number] [address] [place] [address] Aug, [facility] [address] [facility] [id number] [address] [place] [address] Aug, [facility] [address] [facility] [id number] [address] [place] [address] Jul, Strain of lumbar region, ini tial encounter S39.012A [facility] [address] [facility] [id number] [address] [place] [phone] 10 Jul, 2017 Lumbago with sciatica, left side M54.42 and Lumbago with sciatica, right side M54.41 [facility] [address] [facility] [id number] [address] [place] [address] Jul, Low back pain M54.5 and Othe r chronic pain G89.29 [facility] [address] [facility] [id number] [address] [place] [address] Jul, [place] [id number] [place] [address] Jul, Bipolar 2 disorder F31.81 ; Attention deficit disorder F90.0 and Social anxiety disorder F40.10 [facility] [id number] [place] [address] Jun, [place] [address] [address] May, [facility] [id number] [place] [address] Apr, Bipolar 2 disorder F31.81 ; Attention deficit disorder F90.0 ; Social anxiety disorder F40.10 and Chronic post-traumatic stress disorder (PTSD) F43.12 [facility] [address] [id number] [address] [place] [address] Apr, [place] [address] [id number] 12 Apr, 2017 Hyperlipidemia E78.5 [facility] [address] [id number] [address] [place] [address] 27 Mar, 2017 Encounter for immunization Z 23 and Tinea cruris B35.6 [facility] [address] [id number] [address] [place] [phone] 15 Mar, 2017 [facility] [address] [id number] [address] [place] [address] Jan, [facility] [address] [id number] [address] [place] [address] Dec, [facility] [address] [facility] [id number] [address] [place] [address] Dec, [facility] [address] [id number] [address] [place] [address] Dec, Bipolar 2 disorder F31.81 ; Social anxiety disorder F40.10 and Attention deficit disorder F90.0 [facility] [address] [id number] [address] [place] [address] Dec, [facility] [address] [facility] [id number] [address] [place] [address] Dec, Hypertension I10 [facility] [address] [id number] [address] [place] [address] October, [facility] [address] [id number] [address] [place] [address] Oct, [facility] [address] [facility] [id number] [address] [place] [address] Oct, Nasal congestion R09.81 [facility] [address] [facility] [id number] [address] [place] [address] Oct, Social anxiety disorder F40. 10 ; Bipolar 2 disorder F31.81 and Attention deficit disorder F90.0 [facility] [address] [id number] [address] [place] [phone] Aug, [facility] [address] [facility] [id number] [address] [place] [address] Aug, [facility] [address] [facility] [id number] [address] [place] [address] Jul, Nasal congestion R09.81 [facility] [address] [facility] [id number] [address] [place] [phone] Jul, [facility] [address] [facility] [id number] [address] [place] [address] Jun, Bipolar 2 disorder F31.81 ; Attention deficit disorder F90.0 ; Social anxiety disorder F40.10 and Chronic post-traumatic stress disorder (PTSD) F43.12 [facility] [address] [facility] [id number] [address] [place] [phone] Jun, [facility] [address] [facility] [id number] [address] [place] [phone] May, [facility] [address] [facility] [id number] [address] [place] [address] Apr, Attention deficit disorder F 90.0 [facility] [id number] [address] [place] [address] Apr, Urinary hesitancy R39.11 ; H yperlipidemia E78.5 and Encounter for immunization Z23 [facility] [address] [facility] [id number] [address] [place] [address] Apr, [facility] [address] [facility] [id number] [address] [place] [phone] Mar, [facility] [address] [facility] [id number] [address] [place] [phone] Jan, [facility] [address] [facility] [id number] [address] [place] [address] Dec, [facility] [address] [facility] [id number] [address] [place] [address] Dec, [facility] [address] [facility] [id number] [address] [place] [address] Dec, Bipolar 2 disorder F31.81 ; Attention deficit disorder F90.0 ; Posttraumatic stress disorder F43.10 and Social anxiety disorder F40.10 [facility] [address] [facility] [id number] [address] [place] [address] Dec, Scabies exposure Z20.89 and Scabies B86 [facility] [id number] [address] [place] [phone] Dec, [facility] [id number] [place] [address] 16 Dec, 2015 Hypertension I10 and Gastroe sophageal reflux disease without esophagitis K21.9 [facility] [address] [address] October, [facility] [address] [address] October, [facility] [address] [address] Oct, Bipolar 2 disorder F31.81 ; Posttraumatic stress disorder F43.10 ; Attention deficit disorder F90.0 and Social anxiety disorder F40.10 [facility] [address] [address] Oct, [facility] [address] [address] Oct, Hypertension I10 and Nasal c ongestion R09.81 [facility] [address] [id number] [address] [place] [phone] Aug, [facility] [address] [id number] [address] [place] [phone] Aug, [facility] [address] [id number] [address] [place] [phone] Aug, [facility] [id number] [place] [phone] Aug, [facility] [address] [id number] [address] [place] [phone] Aug, [facility] [address] [id number] 04 Aug, 2015 Hypertension I10 and Tremor R25.1 [facility] [address] [id number] [address] [place] [address] Aug, Bipolar 2 disorder F31.81 ; Posttraumatic stress disorder F43.10 ; Attention deficit disorder F90.0 and Social anxiety disorder F40.10 [facility] [address] [id number] [address] [place] [address] Jul, [facility] [address] [facility] [id number] [address] [place] [address] Jul, Hyperlipidemia E78.5 [facility] [address] [facility] [id number] [address] [place] [address] Jul, Hypertension I10 and Hyperli pidemia E78.5 [facility] [address] [facility] [id number] [address] [place] [address] Jun, Bipolar 2 disorder F31.81 ; Posttraumatic stress disorder F43.10 ; Attention deficit disorder F90.0 and Social anxiety disorder F40.10 [facility] [address] [facility] [id number] [address] [place] [phone] May, [facility] [address] [facility] [id number] [address] [place] [address] May, [facility] [address] [facility] [id number] [address] [place] [address] Apr, Bipolar 2 disorder F31.81 ; Posttraumatic stress disorder F43.10 ; Attention deficit disorder F90.0 and Social phobia F40.10 [facility] [address] [facility] [id number] [address] [place] [address] Apr, Bipolar 2 disorder F31.81 ; Posttraumatic stress disorder F43.10 and Attention deficit disorder F90.0 [facility] [address] [facility] [id number] [address] [place] [phone] Apr, [facility] [address] [facility] [id number] [address] [place] [phone] Apr, [facility] [address] [facility] [id number] [address] [place] [phone] Apr, [facility] [address] [facility] [id number] [address] [place] [phone] Mar, [facility] [address] [facility] [id number] [address] [place] [phone] Mar, [facility] [address] [facility] [id number] [address] [place] [address] Jan, [facility] [address] [facility] [id number] [address] [place] [phone] Jan, [facility] [address] [facility] [id number] [address] [place] [address] Jan, Bipolar II disorder 296.89 ; Posttraumatic stress disorder 309.81 ; Social phobia 300.23 and Attention deficit disorder of childhood without mention of hyperactivity 314.00 [facility] [address] [facility] [id number] [address] [place] [address] Jan, Other and unspecified bipola r disorders 296.89 ; Posttraumatic stress disorder 309.81 and Attention deficit disorder of childhood without mention of hyperactivity 314.00 [facility] [address] [facility] [id number] [address] [place] [address] Jan, [facility] [address] [facility] [id number] [address] [place] [address] Dec, Other and unspecified bipola r disorders 296.89 ; Posttraumatic stress disorder 309.81 and Attention deficit disorder of childhood without mention of hyperactivity 314.00 [facility] [address] [facility] [id number] [address] [place] [address] Dec, Migraines 346.90 [facility] [address] [facility] [id number] [address] [place] [address] Dec, Other and unspecified bipola r disorders 296.89 ; Posttraumatic stress disorder 309.81 and Attention deficit disorder of childhood without mention of hyperactivity 314.00 [facility] [address] [facility] [id number] [address] [place] [address] Dec, [facility] [address] [id number] [address] [place] [address] Dec, Bipolar II disorder 296.89 ; Social phobia 300.23 ; Posttraumatic stress disorder 309.81 and Attention deficit disorder of childhood without mention of hyperactivity 314.00 [facility] [address] [id number] [address] [place] [address] Dec, Other and unspecified bipola r disorders 296.89 ; Posttraumatic stress disorder 309.81 and Attention deficit disorder of childhood without mention of hyperactivity 314.00 [facility] [address] [facility] [id number] [address] [place] [address] October, Other and unspecified bipola r disorders 296.89 ; Posttraumatic stress disorder 309.81 and Attention deficit disorder of childhood without mention of hyperactivity 314.00 [facility] [address] [facility] [id number] [address] [place] [phone] October, [facility] [address] [facility] [id number] [address] [place] [phone] October, [facility] [address] [facility] [id number] [address] [place] [address] October, [facility] [address] [facility] [id number] [address] [place] [phone] October, [facility] [address] [facility] [id number] [address] [place] [address] October, Attention deficit disorder o f childhood without mention of hyperactivity 314.00 ; Posttraumatic stress disorder 309.81 ; Social phobia 300.23 and Other and unspecified bipolar disorders 296.89 [facility] [address] [facility] [id number] [address] [place] [address] Oct, [facility] [address] [facility] [id number] [address] [place] [phone] Oct, [facility] [address] [facility] [id number] [address] [place] [phone] Aug, [facility] [address] [id number] [facility] [place] [address] 26 Aug, 2014 [facility] [address] [id number] [facility] [place] [address] 24 Aug, 2014 [facility] [address] [id number] [facility] [place] [address] 24 Aug, 2014 [facility] [address] [id number] [address] [place] [address], [place] [address] 17 Aug, 2014 [facility] [address] [id number] [address] [place] [address], [place] [address] 17 Aug, 2014 [facility] [address] [id number] [address] [place] [address], [place] [address] 17 Aug, 2014 [facility] [address] [id number] [address] [place] [address], [place] [address] 17 Aug, 2014 [facility] [address] [id number] [address] [place] [address], [place] [address] 17 Aug, 2014 [facility] [address] [id number] [address] [place] [address], [place] [address] 17 Aug, 2014 [facility] [address] [id number] [address] [place] [address], [place] [address] 13 Aug, 2014 [facility] [address] [id number] [address] [place] [address], [place] [address] 13 Aug, 2014 [facility] [address] [id number] [address] [place] [address], [place] [address] 12 Aug, 2014 [facility] [address] [id number] [address] [place] [address], [place] [address] Aug, [facility] [address] [id number] [address] [place] [address], [place] [address] Aug, [facility] [address] [id number] [address] [place] [address], [place] [address] Aug, [facility] [address] [id number] [address] [place] [address], [place] [address] Aug, [facility] [address] [id number] [address] [place] [address], [place] [address] Aug, [facility] [address] [id number] [address] [place] [address], [place] [address] Aug, [facility] [address] [id number] [address] [place] [address], [place] [address] Aug, [facility] [address] [id number] [address] [place] [address], [place] [address] Aug, [facility] [address] [id number] [address] [place] [address], [place] [address] Aug, [facility] [address] [id number] [address] [place] [address], [place] [address] Aug, [facility] [address] [id number] [address] [place] [address], [place] [address] Aug, [facility] [address] [id number] [address] [place] [address], [place] [address] Aug, [facility] [address] [id number] [address] [place] [address], [place] [address] Aug, [facility] [address] [id number] [address] [place] [address], [place] [address] Aug, [facility] [address] [id number] [address] [place] [address], [place] [address] Aug, [facility] [address] [id number] [address] [place] [address], [place] [address] Aug, [facility] [address] [id number] [address] [place] [address], [place] [address] Aug, [facility] [address] [id number] [address] [place] [address], [place] [address] Jul, [facility] [address] [id number] [address] [place] [address], [place] [address] Jul, [facility] [address] [id number] [address] [place] [address], [place] [address] Jul, [facility] [address] [id number] [address] [place] [address], [place] [address] Jul, [facility] [address] [id number] [address] [place] [address], [place] [address] Jul, [facility] [address] [id number] [address] [place] [address], [place] [address] Jul, [facility] [address] [id number] [address] [place] [address], [place] [address] Jul, [facility] [address] [id number] [address] [place] [address], [place] [address] Jul, [facility] [address] [id number] [address] [place] [address], [place] [address] Jun, [facility] [address] [id number] [address] [place] [address], [place] [address] Jun, [facility] [address] [id number] [address] [place] [address], [place] [address] Jun, [facility] [address] [id number] [address] [place] [address], [place] [address] Jun, [facility] [address] [id number] [address] [place] [address], [place] [address] May, [facility] [address] [id number] [address] [place] [address] May, [facility] [address] [id number] [address] [place] [address], [place] [address] May, [facility] [address] [id number] [address] [place] [address], [place] [address] May, [facility] [address] [id number] [address] [place] [address], [place] [address] May, [facility] [address] [id number] [address] [place] [phone] Apr, [facility] [address] [facility] [id number] [place] [address] Apr, IMMUNIZATIONS No Known Immunizations SOCIAL HISTORY Never Assessed REASON FOR VISIT vyvanse 02/22/2018 PLAN OF CARE VITAL SIGNS MEDICATIONS Medication [...]
--- OUTSIDE RECORDS SUMMARY | 2019-11-11 19:12 | XMS REPORT ---
Author Author [place] [facility] Address [address] [place] [address] Care Team Providers Care Videographer Name Role Phone FRANKLIN HIGGINS Unavailable PROBLEMS Type Condition ICD9-CM Code [id number] Code Onset Dates Condition S tatus SNOMED Code Problem Social anxiety disorder F40.10 Active 35441606 Problem Hyperlipidemia E78.5 Active 20466 004 Problem Hypertension I10 Active 3816307 3 Problem Posttraumatic stress disorder F43.10 Active 58828328 Problem Bipolar 2 disorder F31.81 Active 8 0765977 Problem Attention deficit disorder F90.0 Act shalom 465393889 Problem Lumbago with sciatica, right side M54.41 Active [id number] Problem Lumbago with sciatica, left side M54.42 Active 161579108 Problem Urinary hesitancy R39.11 Active 59 99996 Problem Gastroesophageal reflux disease without esophagitis K21.9 Active 273280471 Problem Other chronic pain G89.29 Active 8 2810629 Problem Chronic post-traumatic stress disorder (PTSD) F43. 12 Active 979717686 ALLERGIES Substance Reaction Event Type Date Status Codeine Sulfate disoriented Drug Allergy Dec, Active ENCOUNTERS Encounter Location Date Diagnosis [facility] [address] [facility] [id number] [address] [place] [phone] May, [facility] [address] [facility] [id number] [address] [place] [phone] Jan, [facility] [address] [place] [id number] [address] [place] [phone] Dec, Bipolar 2 disorder F31.81 ; Social anxiety disorder F40.10 and Chronic post-traumatic stress disorder (PTSD) F43.12 [facility] [address] [facility] [id number] [address] [place] [phone] Dec, [facility] [address] [id number] [address] [place] [phone] Dec, [facility] [address] [id number] [address] [place] [phone] Dec, Upper respiratory tract infe ction, unspecified type J06.9 [facility] [address] [id number] [address] [place] [phone] October, [facility] [address] [facility] [id number] [address] [place] [phone] Oct, Bipolar 2 disorder F31.81 ; Attention deficit disorder F90.0 ; Social anxiety disorder F40.10 and Chronic post-traumatic stress disorder (PTSD) F43.12 [place] [address] [id number] [address] [place] [phone] Oct, [place] [address] [facility] [id number] [address] [place] [phone] Oct, [facility] [address] [id number] [address] [place] [phone] Aug, [place] [id number] [facility] [id number] [address] [place] [phone] Aug, [facility] [address] [facility] [id number] [address] [place] [phone] Jul, Strain of lumbar region, ini tial encounter S39.012A [facility] [address] [id number] [address] [place] [phone] Jul, Lumbago with sciatica, left side M54.42 and Lumbago with sciatica, right side M54.41 [facility] [address] [id number] [address] [place] [phone] Jul, Low back pain M54.5 and Othe r chronic pain G89.29 [facility] [address] [facility] [id number] [address] [place] [phone] Jul, [facility] [address] [facility] [id number] [address] [place] [address] Jul, Bipolar 2 disorder F31.81 ; Attention deficit disorder F90.0 and Social anxiety disorder F40.10 [facility] [address] [facility] [id number] [address] [place] [id number] Jun, [facility] [address] [facility] [id number] [address] [place] [phone] May, [facility] [address] [facility] [id number] [address] [place] [phone] Apr, Bipolar 2 disorder F31.81 ; Attention deficit disorder F90.0 ; Social anxiety disorder F40.10 and Chronic post-traumatic stress disorder (PTSD) F43.12 [facility] [address] [facility] [id number] [address] [place] [id number] Apr, [facility] [address] [facility] [id number] [address] [place] [phone] Apr, Hyperlipidemia E78.5 [facility] [address] [facility] [id number] [address] [place] [phone] Mar, Encounter for immunization Z 23 and Tinea cruris B35.6 [facility] [address] [facility] [id number] [address] [place] [phone] Mar, [facility] [address] [facility] [id number] [address] [place] [phone] Jan, [facility] [address] [facility] [id number] [address] [place] [phone] Dec, [facility] [address] [facility] [id number] [address] [place] [phone] Dec, [facility] [address] [facility] [id number] [address] [place] [phone] Dec, Bipolar 2 disorder F31.81 ; Social anxiety disorder F40.10 and Attention deficit disorder F90.0 [facility] [address] [id number] [address] [place] [phone] Dec, [facility] [address] [id number] [address] [place] [phone] Dec, Hypertension I10 [facility] [address] [id number] [address] [place] [phone] October, [facility] [address] [facility] [id number] [address] [place] [id number] Oct, [facility] [address] [facility] [id number] [address] [place] [address] Oct, Nasal congestion R09.81 [facility] [address] [facility] [id number] [address] [place] [phone] Oct, Social anxiety disorder F40. 10 ; Bipolar 2 disorder F31.81 and Attention deficit disorder F90.0 [facility] [address] [facility] [id number] [address] [place] [phone] Aug, [facility] [address] [facility] [id number] [address] [place] [phone] Aug, [facility] [address] [facility] [id number] [address] [place] [id number] Jul, Nasal congestion R09.81 [facility] [address] [facility] [id number] [address] [place] [id number] Jul, [facility] [address] [facility] [id number] [address] [place] [id number] Jun, Bipolar 2 disorder F31.81 ; Attention deficit disorder F90.0 ; Social anxiety disorder F40.10 and Chronic post-traumatic stress disorder (PTSD) F43.12 [facility] [address] [facility] [id number] [address] [place] [phone] Jun, [facility] [address] [facility] [id number] [address] [place] [phone] May, [facility] [address] [facility] [id number] [address] [place] [id number] 14 Apr, 2016 Attention deficit disorder F 90.0 [facility] [address] [facility] [id number] [address] [place] [id number] Apr, Urinary hesitancy R39.11 ; H yperlipidemia E78.5 and Encounter for immunization Z23 [facility] [address] [facility] [id number] [address] [place] [id number] Apr, [facility] [address] [facility] [id number] [address] [place] [phone] Mar, [facility] [address] [facility] [id number] [address] [place] [phone] Jan, [facility] [address] [facility] [id number] [address] [place] [phone] Dec, [facility] [address] [facility] [id number] [address] [place] [phone] Dec, [facility] [address] [place] [id number] [address] [place] [phone] Dec, Bipolar 2 disorder F31.81 ; Attention deficit disorder F90.0 ; Posttraumatic stress disorder F43.10 and Social anxiety disorder F40.10 [facility] [address] [facility] [id number] [address] [place] [phone] Dec, Scabies exposure Z20.89 and Scabies B86 [facility] [address] [facility] [id number] [address] [place] [id number] Dec, [facility] [address] [facility] [id number] [address] [place] [phone] Dec, Hypertension I10 and Gastroe sophageal reflux disease without esophagitis K21.9 [facility] [address] [facility] [id number] [address] [place] [phone] October, [facility] [address] [facility] [id number] [address] [place] [phone] October, [facility] [address] [place] [id number] [address] 14 Oct, 2015 Bipolar 2 disorder F31.81 ; Posttraumatic stress disorder F43.10 ; Attention deficit disorder F90.0 and Social anxiety disorder F40.10 [facility] [address] [facility] [id number] [address] [place] [phone] Oct, [facility] [address] [place] [id number] [place] [address] Oct, Hypertension I10 and Nasal c ongestion R09.81 [facility] [address] [facility] [id number] [address] [place] [phone] Aug, [facility] [address] [place] [id number] [place] [phone] Aug, [facility] [address] [address] Aug, [facility] [address] [address] Aug, [facility] [address] [address] Aug, [facility] [address] [address] Aug, Hypertension I10 and Tremor R25.1 [facility] [address] [address] Aug, Bipolar 2 disorder F31.81 ; Posttraumatic stress disorder F43.10 ; Attention deficit disorder F90.0 and Social anxiety disorder F40.10 [facility] [address] [place] [id number] [address] [place] [phone] Jul, [facility] [address] [place] [id number] [place] [phone] Jul, Hyperlipidemia E78.5 [facility] [address] [place] [id number] [place] [phone] 05 Roberto, 2016 Hypertension I10 and Hyperli pidemia E78.5 [facility] [address] [facility] [id number] [address] [place] [id number] Jun, Bipolar 2 disorder F31.81 ; Posttraumatic stress disorder F43.10 ; Attention deficit disorder F90.0 and Social anxiety disorder F40.10 [facility] [address] [id number] [address] [place] [id number] May, [facility] [address] [id number] [address] [place] [phone] May, [facility] [address] [facility] [id number] [address] [place] [phone] Apr, Bipolar 2 disorder F31.81 ; Posttraumatic stress disorder F43.10 ; Attention deficit disorder F90.0 and Social phobia F40.10 [facility] [address] [id number] [address] [place] [address] Apr, Bipolar 2 disorder F31.81 ; Posttraumatic stress disorder F43.10 and Attention deficit disorder F90.0 [facility] [address] [facility] [id number] [address] [place] [id number] Apr, [facility] [address] [id number] [address] [place] [phone] Apr, [facility] [address] [facility] [id number] [address] [place] [phone] Apr, [facility] [address] [id number] [address] [place] [phone] Mar, [facility] [address] [id number] [address] [place] [phone] Mar, [facility] [address] [id number] [address] [place] [phone] Jan, [facility] [address] [id number] [address] [place] [phone] Jan, [facility] [address] [id number] [address] [place] [address] Jan, Bipolar II disorder 296.89 ; Posttraumatic stress disorder 309.81 ; Social phobia 300.23 and Attention deficit disorder of childhood without mention of hyperactivity 314.00 [facility] [address] [facility] [id number] [address] [place] [phone] Jan, Other and unspecified bipola r disorders 296.89 ; Posttraumatic stress disorder 309.81 and Attention deficit disorder of childhood without mention of hyperactivity 314.00 [facility] [address] [facility] [id number] [address] [place] [phone] Jan, [facility] [address] [facility] [id number] [address] [place] [phone] Dec, Other and unspecified bipola r disorders 296.89 ; Posttraumatic stress disorder 309.81 and Attention deficit disorder of childhood without mention of hyperactivity 314.00 [facility] [address] [place] [id number] [address] [place] [phone] Dec, Migraines 346.90 [facility] [address] [facility] [id number] [address] [place] [address] Dec, Other and unspecified bipola r disorders 296.89 ; Posttraumatic stress disorder 309.81 and Attention deficit disorder of childhood without mention of hyperactivity 314.00 [facility] [address] [facility] [id number] [address] [place] [phone] Dec, [facility] [address] [facility] [id number] [address] [place] [address] Dec, Bipolar II disorder 296.89 ; Social phobia 300.23 ; Posttraumatic stress disorder 309.81 and Attention deficit disorder of childhood without mention of hyperactivity 314.00 [facility] [address] [facility] [id number] [address] [place] [phone] Dec, Other and unspecified bipola r disorders 296.89 ; Posttraumatic stress disorder 309.81 and Attention deficit disorder of childhood without mention of hyperactivity 314.00 [facility] [address] [facility] [id number] [address] [place] [phone] October, Other and unspecified bipola r disorders 296.89 ; Posttraumatic stress disorder 309.81 and Attention deficit disorder of childhood without mention of hyperactivity 314.00 [facility] [address] [id number] [address] [place] [phone] October, [facility] [address] [id number] [address] [place] [phone] October, [facility] [address] [id number] [address] [place] [phone] October, [facility] [address] [id number] [address] [place] [phone] October, [facility] [address] [id number] [address] [place] [phone] October, Attention deficit disorder o f childhood without mention of hyperactivity 314.00 ; Posttraumatic stress disorder 309.81 ; Social phobia 300.23 and Other and unspecified bipolar disorders 296.89 [facility] [address] [id number] [address] [place] [phone] Oct, [facility] [address] [id number] [address] [place] [phone] Oct, [facility] [address] [id number] [address] [place] [phone] Aug, [facility] [address] [id number] [address] [place] [phone] Aug, [facility] [address] [id number] [address] [place] [phone] Aug, [facility] [address] [id number] [address] [place] [phone] Aug, [facility] [address] [id number] [address] [place] [phone] Aug, [facility] [address] [id number] [address] [place] [phone] Aug, [facility] [address] [id number] [address] [place] [id number] 17 Aug, 2014 [facility] [place] [facility] [address] [id number] [facility] [address] 17 Aug, 2014 [facility] [place] [facility] [address] [id number] [address] [place] [address], [place] [address] 17 Aug, 2014 [facility] [place] [facility] [address] [id number] [facility] [address] 17 Aug, 2014 [facility] [place] [facility] [address] [id number] [address] [place] [address], [place] [address] 13 Aug, 2014 [facility] [place] [facility] [address] [id number] [address] [place] [address], [place] [address] 13 Aug, 2014 [facility] [place] [facility] [address] [id number] [address] [place] [address], [place] [address] 12 Aug, 2014 [facility] [place] [facility] [address] [id number] [address] [place] [address], [place] [address] Aug, [facility] [place] [facility] [address] [id number] [address] [place] [address], [place] [address] Aug, [facility] [place] [facility] [address] [id number] [address] [place] [address], [place] [address] Aug, [facility] [place] [facility] [address] [id number] [address] [place] [address], [place] [address] Aug, [facility] [place] [facility] [address] [id number] [address] [place] [address], [place] [address] Aug, [facility] [place] [facility] [address] [id number] [address] [place] [address], [place] [address] Aug, [facility] [place] [facility] [address] [id number] [address] [place] [address], [place] [address] Aug, [facility] [place] [facility] [address] [id number] [address] [place] [address], [place] [address] 04 Aug, 2014 [facility] [place] [facility] [address] [id number] [address] [place] [address], [place] [address] 04 Aug, 2014 [facility] [place] [facility] [address] [id number] [address] [place] [address], [place] [address] Aug, [facility] [address] [id number] [address] [place] [address], [place] [address] Aug, [facility] [place] [facility] [address] [id number] [address] [place] [address], [place] [address] Aug, [facility] [place] [facility] [address] [id number] [address] [place] [address], [place] [address] Aug, [facility] [place] [facility] [address] [id number] [address] [place] [address], [place] [address] Aug, [facility] [address] [id number] [address] [place] [address], [place] [address] Aug, [facility] [address] [id number] [address] [place] [address], [place] [address] Aug, [facility] [place] [facility] [address] [id number] [address] [place] [address], [place] [address] Aug, [facility] [address] [id number] [address] [place] [address], [place] [address] Jul, [facility] [address] [id number] [address] [place] [address], [place] [address] Jul, [facility] [address] [id number] [address] [place] [address], [place] [address] Jul, [facility] [place] [facility] [address] [id number] [address] [place] [address], [place] [address] Jul, [facility] [place] [facility] [address] [id number] [address] [place] [address], [place] [address] Jul, [facility] [place] [facility] [address] [id number] [address] [place] [address], [place] [address] Jul, [facility] [place] [facility] [address] [id number] [address] [place] [address], [place] [address] Jul, [facility] [place] [facility] [address] [id number] [address] [place] [address] [address] Jul, [facility] [address] [id number] [address] [place] [phone] Jun, [facility] [address] [id number] [address] [place] [id number] Jun, [facility] [address] [id number] [address] [place] [id number] Jun, [facility] [address] [id number] [address] [place] [phone] Jun, [facility] [address] [id number] [address] [place] [address] May, [facility] [address] [id number] [address] [place] [phone] May, [facility] [address] [id number] [address] [place] [id number] May, [facility] [address] [id number] [address] [place] [id number] May, [facility] [address] [id number] [address] [place] [id number] May, [facility] [address] [id number] [address] [place] [phone] Apr, [facility] [address] [id number] [address] [place] [phone] Apr, IMMUNIZATIONS No Known Immunizations SOCIAL HISTORY Never Assessed REASON FOR VISIT chest congestion and cough for 5 days. [email or web address] PLAN OF CARE Activity Details Follow Up 1 Week, prn Reason:if sympto ms don't improve or worsen VITAL SIGNS Height 64 in 2017-12-10 Weight 151.6 lbs 2017-12-10 Temperature 97.7 degrees Fahrenheit 2017-12-10 Heart Rate 90 bpm 2017-12-10 Respiratory Rate 20 2017-12-10 Oximetry on room air:99 % 2017-12-10 BMI 26.02 kg/m2 2017-12-10 Blood pressure systolic 126 mmHg 2017-12-10 Blood pressure diastolic 72 mmHg 2017-12-10 MEDICATIONS Medication Instructions Dosage Frequency Start Date End Date Duration S sekouus Atorvastatin Calcium 20 MG TAKE ONE TABL ET BY MOUTH ONCE DAILY (MUST HAVE APPOINTMENT FOR REFILL) 30 Acti ve Vyvanse 30 MG Orally Once a day for ADHD 1 capsule in the morning October, 28 days Active Colace 100 mg 1 capsule by Oral route 2 times per day PRN 30 Apr, 2014 Not-Taking Vitamin D3 5000 UNIT Orally Once a day 1 capsule 24h Apr, Active Lisinopril 20 MG TAKE ONE TABLET BY MOUTH ONCE DAILY 30 Active Lamotrigine 200 MG TAKE ONE TABLET BY M OUTH ONCE DAILY IN THE EVENING FOR DEPRESSION 30 Active Aspirin 325 mg 1 tablet by Oral route 1 time per day Apr, Active Multivitamin 1 tablet by Oral route 1 time per day 30 Oc 2013 Active Omeprazole 20 MG TAKE ONE CAPSULE BY MOUTH ONCE DAILY 30 Active Vitamin C 500 mg 1 tablet by Oral route 1 time per day 3 0 Apr, 2014 Active Augmentin 875-125 MG Orally every 12 hrs 1 tablet 12h 10 Dec, 2 018 17 Dec, 2017 07 days Active RESULTS No Results PROCEDURES No Known procedures INSTRUCTIONS MEDICATIONS ADMINISTERED No Known Medications MEDICAL (GENERAL) HISTORY Type Description Date Medical History Hypertension Medical History GERD Medical History Bipolar Surgical History Hernia right ingual Surgical History Colonoscopy october 2014 Hospitalization History surgeries Hospitalization History ER for dehydration and vomitting 10/04/15
--- OUTSIDE RECORDS SUMMARY | 2019-11-11 19:12 | XMS REPORT ---
Author Author [facility] Address [address] [place] [address] Care Team Providers Care Optical Scientist Name Role Phone GUILLERMO [facility] Unavailable PROBLEMS Type Condition ICD9-CM Code [id number] Code Onset Dates Condition S tatus SNOMED Code Problem Social anxiety disorder F40.10 Active 39728475 Problem Hyperlipidemia E78.5 Active 52644 004 Problem Hypertension I10 Active 7784679 3 Problem Posttraumatic stress disorder F43.10 Active 72145918 Problem Bipolar 2 disorder F31.81 Active 8 6757131 Problem Attention deficit disorder F90.0 Act shalom 324609927 Problem Lumbago with sciatica, right side M54.41 Active [id number] Problem Lumbago with sciatica, left side M54.42 Active 305232239 Problem Urinary hesitancy R39.11 Active 59 13359 Problem Gastroesophageal reflux disease without esophagitis K21.9 Active 610779438 Problem Other chronic pain G89.29 Active 8 8869642 Problem Chronic post-traumatic stress disorder (PTSD) F43. 12 Active 374402633 ALLERGIES Substance Reaction Event Type Date Status Codeine Sulfate disoriented Drug Allergy Dec, Active ENCOUNTERS Encounter Location Date Diagnosis [facility] [address] [facility] [id number] [address] [place] [address] May, [facility] [address] [facility] [id number] [address] [place] [address] Mar, [facility] [address] [facility] [id number] [address] [place] [address] Mar, Lumbago with sciatica, left side M54.42 and Lumbago with sciatica, right side M54.41 [facility] [address] [facility] [id number] [address] [place] [address] Jan, [facility] [address] [id number] [address] [place] [address] Dec, Bipolar 2 disorder F31.81 ; Social anxiety disorder F40.10 and Chronic post-traumatic stress disorder (PTSD) F43.12 [facility] [address] [id number] [address] [place] [address] Dec, [facility] [address] [id number] [address] [place] [address] Dec, [facility] [address] [id number] [address] [place] [address] Dec, Upper respiratory tract infe ction, unspecified type J06.9 [facility] [address] [id number] [address] [place] [address] October, [facility] [address] [id number] [address] [place] [address] Oct, Bipolar 2 disorder F31.81 ; Attention deficit disorder F90.0 ; Social anxiety disorder F40.10 and Chronic post-traumatic stress disorder (PTSD) F43.12 [facility] [address] [id number] [address] [place] [address] Oct, [facility] [address] [id number] [address] [place] [address] Oct, [facility] [address] [id number] [address] [place] [address] Aug, [facility] [address] [id number] [address] [place] [address] Aug, [facility] [address] [id number] [address] [place] [address] Jul, Strain of lumbar region, ini tial encounter S39.012A [facility] [address] [id number] [address] [place] [address] Jul, Lumbago with sciatica, left side M54.42 and Lumbago with sciatica, right side M54.41 [facility] [address] [id number] [address] [place] [address] Jul, Low back pain M54.5 and Othe r chronic pain G89.29 [facility] [address] [id number] [address] [place] [address] Jul, [facility] [address] [facility] [id number] [address] [place] [address] Jul, Bipolar 2 disorder F31.81 ; Attention deficit disorder F90.0 and Social anxiety disorder F40.10 [facility] [address] [facility] [id number] [address] [place] [address] Jun, [facility] [address] [facility] [id number] [address] [place] [address] May, [facility] [address] [facility] [id number] [address] [place] [address] Apr, Bipolar 2 disorder F31.81 ; Attention deficit disorder F90.0 ; Social anxiety disorder F40.10 and Chronic post-traumatic stress disorder (PTSD) F43.12 [facility] [address] [id number] [address] [place] [address] Apr, [facility] [address] [facility] [id number] [address] [place] [address] Apr, Hyperlipidemia E78.5 [facility] [address] [facility] [id number] [address] [place] [address] Mar, Encounter for immunization Z 23 and Tinea cruris B35.6 [facility] [address] [facility] [id number] [address] [place] [address] Mar, [facility] [address] [facility] [id number] [address] [place] [address] Jan, [facility] [address] [id number] [address] [place] [address] Dec, [facility] [id number] [place] [address] Dec, [facility] [address] [id number] [address] [place] [address] Dec, Bipolar 2 disorder F31.81 ; Social anxiety disorder F40.10 and Attention deficit disorder F90.0 [facility] [address] [id number] [address] [place] [address] Dec, [facility] [address] [id number] [address] [place] [address] Dec, Hypertension I10 [facility] [address] [id number] [address] [place] [address] October, [facility] [address] [facility] [id number] [address] [place] [address] Oct, [facility] [address] [facility] [id number] [address] [place] [address] Oct, Nasal congestion R09.81 [facility] [address] [facility] [id number] [address] [place] [address] Oct, Social anxiety disorder F40. 10 ; Bipolar 2 disorder F31.81 and Attention deficit disorder F90.0 [facility] [address] [facility] [id number] [address] [place] [address] Aug, [facility] [address] [facility] [id number] [address] [place] [address] Aug, [facility] [address] [facility] [id number] [address] [place] [address] Jul, Nasal congestion R09.81 [facility] [address] [facility] [id number] [address] [place] [address] Jul, [facility] [address] [facility] [id number] [address] [place] [address] Jun, Bipolar 2 disorder F31.81 ; Attention deficit disorder F90.0 ; Social anxiety disorder F40.10 and Chronic post-traumatic stress disorder (PTSD) F43.12 [facility] [address] [facility] [id number] [address] [place] [address] Jun, [facility] [address] [facility] [id number] [place] [address] May, [facility] [address] [facility] [id number] [address] [place] [address] 14 Apr, 2016 Attention deficit disorder F 90.0 [facility] [id number] [place] [address] Apr, Urinary hesitancy R39.11 ; H yperlipidemia E78.5 and Encounter for immunization Z23 [facility] [id number] [place] [address] Apr, [facility] [address] [id number] [place] [address] Mar, [facility] [address] [address] Jan, [facility] [address] [id number] [address] [place] [address] Dec, [facility] [address] [id number] [address] [place] [address] Dec, [facility] [address] [id number] [address] [place] [address] Dec, Bipolar 2 disorder F31.81 ; Attention deficit disorder F90.0 ; Posttraumatic stress disorder F43.10 and Social anxiety disorder F40.10 [facility] [address] [facility] [id number] [address] [place] [address] Dec, Scabies exposure Z20.89 and Scabies B86 [facility] [address] [facility] [id number] [address] [place] [address] Dec, [facility] [address] [id number] [address] [place] [address] Dec, Hypertension I10 and Gastroe sophageal reflux disease without esophagitis K21.9 [facility] [address] [facility] [id number] [address] [place] [address] October, [facility] [address] [facility] [id number] [address] [place] [address] October, [facility] [address] [facility] [id number] [address] [place] [address] Oct, Bipolar 2 disorder F31.81 ; Posttraumatic stress disorder F43.10 ; Attention deficit disorder F90.0 and Social anxiety disorder F40.10 [facility] [address] [facility] [id number] [address] [place] [address] Oct, [facility] [address] [facility] [id number] [address] [place] [address] Oct, Hypertension I10 and Nasal c ongestion R09.81 [facility] [address] [facility] [id number] [address] [place] [address] Aug, [facility] [address] [facility] [id number] [address] [place] [address] Aug, [facility] [address] [facility] [id number] [address] [place] [address] Aug, [facility] [address] [facility] [id number] [address] [place] [address] Aug, [facility] [address] [facility] [id number] [address] [place] [address] Aug, [facility] [address] [facility] [id number] [address] [place] [address] 04 Aug, 2015 Hypertension I10 and Tremor R25.1 [facility] [address] [facility] [id number] [address] [place] [address] 04 Aug, 2015 Bipolar 2 disorder F31.81 ; Posttraumatic stress disorder F43.10 ; Attention deficit disorder F90.0 and Social anxiety disorder F40.10 [facility] [address] [facility] [id number] [address] [place] [address] Jul, [facility] [address] [facility] [id number] [address] [place] [address] Jul, Hyperlipidemia E78.5 [facility] [address] [id number] [address] [place] [address] Jul, Hypertension I10 and Hyperli pidemia E78.5 [facility] [id number] [place] [address] Jun, Bipolar 2 disorder F31.81 ; Posttraumatic stress disorder F43.10 ; Attention deficit disorder F90.0 and Social anxiety disorder F40.10 [facility] [id number] [place] [address] May, [facility] [address] [address] May, [facility] [address] [id number] Apr, Bipolar 2 disorder F31.81 ; Posttraumatic stress disorder F43.10 ; Attention deficit disorder F90.0 and Social phobia F40.10 [facility] [address] [address] Apr, Bipolar 2 disorder F31.81 ; Posttraumatic stress disorder F43.10 and Attention deficit disorder F90.0 [facility] [address] [id number] [address] [place] [address] Apr, [facility] [address] [id number] [address] [place] [address] Apr, [facility] [address] [address] Apr, [facility] [address] [id number] [address] [place] [address] Mar, [facility] [address] [id number] Mar, [facility] [address] [facility] [id number] [address] [place] [address] Jan, [facility] [address] [facility] [id number] [address] [place] [address] Jan, [facility] [address] [facility] [id number] [address] [place] [address] Jan, Bipolar II disorder 296.89 ; Posttraumatic stress disorder 309.81 ; Social phobia 300.23 and Attention deficit disorder of childhood without mention of hyperactivity 314.00 [facility] [address] [facility] [id number] [address] [place] [address] Jan, Other and unspecified bipola r disorders 296.89 ; Posttraumatic stress disorder 309.81 and Attention deficit disorder of childhood without mention of hyperactivity 314.00 [facility] [address] [facility] [id number] [address] [place] [address] Jan, [facility] [address] [facility] [id number] [address] [place] [address] Dec, Other and unspecified bipola r disorders 296.89 ; Posttraumatic stress disorder 309.81 and Attention deficit disorder of childhood without mention of hyperactivity 314.00 [facility] [address] [facility] [id number] [address] [place] [address] Dec, Migraines 346.90 [facility] [address] [facility] [id number] [address] [place] [address] Dec, Other and unspecified bipola r disorders 296.89 ; Posttraumatic stress disorder 309.81 and Attention deficit disorder of childhood without mention of hyperactivity 314.00 [facility] [address] [facility] [id number] [address] [place] [address] Dec, [facility] [address] [facility] [id number] [address] [place] [address] Dec, Bipolar II disorder 296.89 ; Social phobia 300.23 ; Posttraumatic stress disorder 309.81 and Attention deficit disorder of childhood without mention of hyperactivity 314.00 [facility] [address] [facility] [id number] [address] [place] [address] Dec, Other and unspecified bipola r disorders 296.89 ; Posttraumatic stress disorder 309.81 and Attention deficit disorder of childhood without mention of hyperactivity 314.00 [facility] [address] [id number] [address] [place] [address] October, Other and unspecified bipola r disorders 296.89 ; Posttraumatic stress disorder 309.81 and Attention deficit disorder of childhood without mention of hyperactivity 314.00 [facility] [address] [id number] [address] [place] [address] October, [facility] [address] [id number] [address] [place] [address] October, [facility] [address] [id number] [address] [place] [address] October, [facility] [address] [facility] [id number] [address] [place] [address] October, [facility] [address] [facility] [id number] [address] [place] [address] October, Attention deficit disorder o f childhood without mention of hyperactivity 314.00 ; Posttraumatic stress disorder 309.81 ; Social phobia 300.23 and Other and unspecified bipolar disorders 296.89 [facility] [address] [id number] [address] [place] [address] Oct, [facility] [address] [facility] [id number] [address] [place] [address] Oct, [facility] [address] [id number] [address] [place] [address] Aug, [facility] [address] [facility] [id number] [address] [place] [address] Aug, [facility] [address] [facility] [id number] [address] [place] [address] Aug, [facility] [address] [facility] [id number] [address] [place] [address] Aug, [facility] [address] [id number] [id number] [place] [id number] 17 Aug, 2014 [facility] [place] [facility] [address] [id number] [address] [place] [address], [place] [id number] 17 Aug, 2014 [facility] [place] [facility] [address] [id number] [facility] [place] [id number] 17 Aug, 2014 [facility] [place] [facility] [address] [id number] [address] [place] [address], [place] [id number] 17 Aug, 2014 [facility] [place] [facility] [address] [id number] [address] [place] [address], [place] [id number] 17 Aug, 2014 [facility] [place] [facility] [address] [id number] [address] [place] [address], [place] [id number] 17 Aug, 2014 [facility] [place] [facility] [address] [id number] [address] [place] [address], [place] [id number] 13 Aug, 2014 [facility] [place] [facility] [address] [id number] [address] [place] [address], [place] [id number] 13 Aug, 2014 [facility] [place] [facility] [address] [id number] [address] [place] [address], [place] [id number] 12 Aug, 2014 [facility] [place] [facility] [address] [id number] [address] [place] [address], [place] [id number] 12 Aug, 2014 [facility] [place] [facility] [address] [id number] [address] [place] [address], [place] [id number] 12 Aug, 2014 [facility] [place] [facility] [address] [id number] [address] [place] [address], [place] [id number] 12 Aug, 2014 [facility] [place] [facility] [address] [id number] [address] [place] [address], [place] [id number] Aug, [facility] [place] [facility] [address] [id number] [address] [place] [address], [place] [id number] 12 Aug, 2014 [facility] [place] [facility] [address] [id number] [address] [place] [address], [place] [id number] 11 Aug, 2014 [facility] [place] [facility] [address] [id number] [address] [place] [address], [place] [id number] Aug, [facility] [address] [id number] [address] [place] [address], [place] [id number] Aug, [facility] [place] [facility] [address] [id number] [address] [place] [address], [place] [id number] Aug, [facility] [place] [facility] [address] [id number] [address] [place] [address], [place] [id number] Aug, [facility] [place] [facility] [address] [id number] [address] [place] [address], [place] [id number] Aug, [facility] [place] [facility] [address] [id number] [address] [place] [address], [place] [id number] Aug, [facility] [place] [facility] [address] [id number] [address] [place] [address], [place] [id number] Aug, [facility] [address] [id number] [address] [place] [address], [place] [id number] Aug, [facility] [address] [id number] [address] [place] [address], [place] [id number] Aug, [facility] [address] [id number] [address] [place] [address], [place] [id number] Aug, [facility] [address] [id number] [address] [place] [address], [place] [id number] Aug, [facility] [place] [facility] [address] [id number] [address] [place] [address], [place] [id number] Jul, [facility] [place] [facility] [address] [id number] [address] [place] [address], [place] [id number] Jul, [facility] [place] [facility] [address] [id number] [address] [place] [address], [place] [id number] Jul, [facility] [place] [facility] [address] [id number] [address] [place] [address], [place] [id number] Jul, [facility] [place] [facility] [address] [id number] [address] [place] [address], [place] [id number] Jul, [facility] [address] [id number] [address] [place] [phone] Jul, [facility] [address] [id number] [address] [place] [id number] Jul, [facility] [address] [id number] [address] [place] [id number] Jul, [facility] [address] [id number] [address] [place] [id number] Jun, [facility] [address] [id number] [address] [place] [id number] Jun, [facility] [address] [id number] [address] [place] [id number] Jun, [facility] [address] [id number] [address] [place] [id number] Jun, [facility] [address] [id number] [address] [place] [id number] May, [facility] [address] [id number] [address] [place] [id number] May, [facility] [address] [id number] [address] [place] [id number] May, [facility] [address] [id number] [address] [place] [phone] May, [facility] [address] [id number] [address] [place] [id number] May, [facility] [address] [id number] [address] [place] [id number] Apr, [facility] [address] [id number] [address] [place] [id number] Apr, IMMUNIZATIONS No Known Immunizations SOCIAL HISTORY Never Assessed REASON FOR VISIT NIRU gooden/ebony Null MA PLAN OF CARE Activity Details Follow Up 3 Months Reason: VITAL SIGNS Height 64 in 2018-01-25 Weight 149.6 lbs 2018-01-25 Heart Rate 90 bpm 2018-01-25 Respiratory Rate 20 2018-01-25 Oximetry 99 % 2018-01-25 BMI 25.68 kg/m2 2018-01-25 Blood pressure systolic 130 mmHg 2018-01-25 Blood pressure diastolic 72 mmHg 2018-01-25 MEDICATIONS Medication Instructions Dosage Frequency Start Date End Date Duration S lion Vitamin C 500 mg 1 tablet by Oral route 1 time per day 3 0 Apr, 2014 Active Vitamin D3 5000 UNIT Orally Once a day 1 capsule 24h Apr, Active Vyvanse 30 MG Orally Once a day for ADHD 1 capsule in the morning Dec, Active Colace 100 mg 1 capsule by Oral route 2 times per day PRN 30 Apr, 2014 Not-Taking Multivitamin 1 tablet by Oral route 1 time per day 30 Oc 2013 Active Lamotrigine 200 MG TAKE ONE TABLET BY M OUTH ONCE DAILY IN THE EVENING FOR DEPRESSION 30 Active Lisinopril 20 MG TAKE ONE TABLET BY MOUTH ONCE DAILY 30 Active Aspirin 325 mg 1 tablet by Oral route 1 time per day Apr, Active Omeprazole 20 MG TAKE ONE CAPSULE BY MOUTH ONCE DAILY 30 Active Atorvastatin Calcium 20 MG TAKE ONE TABL ET BY MOUTH ONCE DAILY (MUST HAVE APPOINTMENT FOR REFILL) 30 Acti ve RESULTS No Results PROCEDURES No Known procedures INSTRUCTIONS MEDICATIONS ADMINISTERED No Known Medications MEDICAL (GENERAL) HISTORY Type Description Date Medical History Hypertension Medical History GERD Medical History Bipolar Surgical History Hernia right ingual Surgical History Colonoscopy october 2014 Hospitalization History surgeries Hospitalization History ER for dehydration and vomitting 10/04/15
--- OUTSIDE RECORDS SUMMARY | 2019-11-11 19:12 | XMS REPORT ---
Author Author [facility] Address [address] [place] [address] Care Team Providers Care Wash Test Checker Name Role Phone FLEX GUILLERMO Unavailable PROBLEMS Type Condition ICD9-CM Code EAO05-FX Code Onset Dates Condition S tatus SNOMED Code Problem Social anxiety disorder F40.10 Active 30558809 Problem Hyperlipidemia E78.5 Active 45522 004 Problem Hypertension I10 Active 8454568 3 Problem Posttraumatic stress disorder F43.10 Active 25632331 Problem Bipolar 2 disorder F31.81 Active 8 6637120 Problem Attention deficit disorder F90.0 Act shalom 364845071 Problem Lumbago with sciatica, right side M54.41 Active [id number] Problem Lumbago with sciatica, left side M54.42 Active 488023485 Problem Urinary hesitancy R39.11 Active 59 05106 Problem Gastroesophageal reflux disease without esophagitis K21.9 Active 564220663 Problem Other chronic pain G89.29 Active 8 2431244 Problem Chronic post-traumatic stress disorder (PTSD) F43. 12 Active [id number] ALLERGIES No Information ENCOUNTERS Encounter Location Date Diagnosis [facility] [address] [id number] [address] [place] [address] May, [facility] [address] [facility] [id number] [address] [place] [address] Dec, Bipolar 2 disorder F31.81 ; Social anxiety disorder F40.10 and Chronic post-traumatic stress disorder (PTSD) F43.12 [facility] [address] [facility] [id number] [address] [place] [address] Dec, [facility] [address] [facility] [id number] [address] [place] [address] Dec, [facility] [address] [facility] [id number] [address] [place] [address] Dec, Upper respiratory tract infe ction, unspecified type J06.9 [facility] [address] [id number] [address] [place] [address] October, [facility] [address] [id number] [address] [place] [address] Oct, Bipolar 2 disorder F31.81 ; Attention deficit disorder F90.0 ; Social anxiety disorder F40.10 and Chronic post-traumatic stress disorder (PTSD) F43.12 [facility] [address] [id number] [address] [place] [address] Oct, [facility] [address] [id number] [address] [place] [address] Oct, [facility] [address] [facility] [id number] [address] [place] [address] Aug, [facility] [address] [id number] [address] [place] [address] Aug, [facility] [address] [id number] [address] [place] [address] Jul, Strain of lumbar region, ini tial encounter S39.012A [facility] [address] [id number] [address] [place] [address] Jul, Lumbago with sciatica, left side M54.42 and Lumbago with sciatica, right side M54.41 [facility] [address] [id number] [address] [place] [phone] Jul, Low back pain M54.5 and Othe r chronic pain G89.29 [facility] [address] [id number] [address] [place] [address] Jul, [facility] [address] [facility] [id number] [address] [place] [address] Jul, Bipolar 2 disorder F31.81 ; Attention deficit disorder F90.0 and Social anxiety disorder F40.10 [facility] [address] [facility] [id number] [address] [place] [address] Jun, [facility] [address] [facility] [id number] [address] [place] [address] May, [facility] [address] [facility] [id number] [address] [place] [address] Apr, Bipolar 2 disorder F31.81 ; Attention deficit disorder F90.0 ; Social anxiety disorder F40.10 and Chronic post-traumatic stress disorder (PTSD) F43.12 [facility] [address] [facility] [id number] [address] [place] [address] Apr, [facility] [address] [facility] [id number] [address] [place] [address] Apr, Hyperlipidemia E78.5 [facility] [address] [facility] [id number] [address] [place] [address] Mar, Encounter for immunization Z 23 and Tinea cruris B35.6 [facility] [address] [facility] [id number] [address] [place] [address] Mar, [facility] [address] [facility] [id number] [address] [place] [address] Jan, [facility] [address] [facility] [id number] [address] [place] [address] Dec, [facility] [address] [facility] [id number] [address] [place] [phone] Dec, [facility] [address] [facility] [id number] [address] [place] [address] Dec, Bipolar 2 disorder F31.81 ; Social anxiety disorder F40.10 and Attention deficit disorder F90.0 [facility] [address] [facility] [id number] [address] [place] [address] Dec, [facility] [address] [facility] [id number] [address] [place] [address] Dec, Hypertension I10 [facility] [address] [id number] [address] [place] [address] October, [facility] [address] [id number] [address] [place] [phone] Oct, [facility] [address] [facility] [id number] [address] [place] [address] Oct, Nasal congestion R09.81 [facility] [address] [facility] [id number] [address] [place] [address] Oct, Social anxiety disorder F40. 10 ; Bipolar 2 disorder F31.81 and Attention deficit disorder F90.0 [facility] [address] [id number] [address] [place] [phone] Aug, [facility] [address] [facility] [id number] [address] [place] [address] Aug, [facility] [address] [facility] [id number] [address] [place] [address] Jul, Nasal congestion R09.81 [facility] [address] [facility] [id number] [address] [place] [id number] Jul, [facility] [address] [facility] [id number] [address] [place] [address] Jun, Bipolar 2 disorder F31.81 ; Attention deficit disorder F90.0 ; Social anxiety disorder F40.10 and Chronic post-traumatic stress disorder (PTSD) F43.12 [facility] [address] [facility] [id number] [address] [place] [address] Jun, [facility] [address] [facility] [id number] [address] [place] [phone] May, [facility] [address] [facility] [id number] [address] [place] [phone] 14 Apr, 2016 Attention deficit disorder F 90.0 [facility] [address] [facility] [id number] [address] [place] [address] Apr, Urinary hesitancy R39.11 ; H yperlipidemia E78.5 and Encounter for immunization Z23 [facility] [address] [facility] [id number] [address] [place] [address] Apr, [facility] [address] [facility] [id number] [address] [place] [phone] Mar, [facility] [address] [facility] [id number] [address] [place] [address] Jan, [facility] [address] [facility] [id number] [address] [place] [phone] Dec, [facility] [address] [facility] [id number] [address] [place] [address] Dec, [facility] [address] [facility] [id number] [address] [place] [address] Dec, Bipolar 2 disorder F31.81 ; Attention deficit disorder F90.0 ; Posttraumatic stress disorder F43.10 and Social anxiety disorder F40.10 [facility] [address] [facility] [id number] [address] [place] [id number] Dec, Scabies exposure Z20.89 and Scabies B86 [facility] [address] [facility] [id number] [address] [place] [phone] Dec, [facility] [address] [facility] [id number] [address] [place] [phone] Dec, Hypertension I10 and Gastroe sophageal reflux disease without esophagitis K21.9 [facility] [address] [facility] [id number] [address] [place] [phone] October, [facility] [address] [facility] [id number] [address] [place] [address] October, [facility] [address] [facility] [id number] [address] [place] [address] Oct, Bipolar 2 disorder F31.81 ; Posttraumatic stress disorder F43.10 ; Attention deficit disorder F90.0 and Social anxiety disorder F40.10 [facility] [address] [facility] [id number] [address] [place] [address] Oct, [facility] [address] [id number] Oct, Hypertension I10 and Nasal c ongestion R09.81 [facility] [address] [id number] [address] [place] [phone] Aug, [facility] [id number] [place] [address] Aug, [facility] [address] [facility] [id number] [place] [address] Aug, [facility] [address] [id number] [place] [phone] Aug, [facility] [address] [address] Aug, [facility] [address] [address] Aug, Hypertension I10 and Tremor R25.1 [facility] [address] [address] Aug, Bipolar 2 disorder F31.81 ; Posttraumatic stress disorder F43.10 ; Attention deficit disorder F90.0 and Social anxiety disorder F40.10 [facility] [address] [id number] [address] [place] [address] Jul, [facility] [address] [id number] [address] [place] [phone] Jul, Hyperlipidemia E78.5 [facility] [address] [id number] [place] [address] Jul, Hypertension I10 and Hyperli pidemia E78.5 [facility] [address] [id number] [address] [place] [id number] Jun, Bipolar 2 disorder F31.81 ; Posttraumatic stress disorder F43.10 ; Attention deficit disorder F90.0 and Social anxiety disorder F40.10 [facility] [address] [id number] [address] [place] [address] May, [facility] [address] [facility] [id number] [address] [place] [address] May, [facility] [address] [facility] [id number] [address] [place] [address] Apr, Bipolar 2 disorder F31.81 ; Posttraumatic stress disorder F43.10 ; Attention deficit disorder F90.0 and Social phobia F40.10 [facility] [address] [facility] [id number] [address] [place] [address] Apr, Bipolar 2 disorder F31.81 ; Posttraumatic stress disorder F43.10 and Attention deficit disorder F90.0 [facility] [address] [facility] [id number] [address] [place] [address] Apr, [facility] [address] [facility] [id number] [address] [place] [address] Apr, [facility] [address] [facility] [id number] [address] [place] [id number] Apr, [facility] [address] [facility] [id number] [address] [place] [address] Mar, [facility] [address] [facility] [id number] [address] [place] [phone] Mar, [facility] [address] [facility] [id number] [address] [place] [id number] Jan, [facility] [address] [facility] [id number] [address] [place] [address] Jan, [facility] [address] [facility] [id number] [address] [place] [address] Jan, Bipolar II disorder 296.89 ; Posttraumatic stress disorder 309.81 ; Social phobia 300.23 and Attention deficit disorder of childhood without mention of hyperactivity 314.00 [facility] [address] [facility] [id number] [address] [place] [id number] Jan, Other and unspecified bipola r disorders 296.89 ; Posttraumatic stress disorder 309.81 and Attention deficit disorder of childhood without mention of hyperactivity 314.00 [facility] [address] [facility] [id number] [address] [place] [phone] Jan, [facility] [address] [facility] [id number] [address] [place] [phone] Dec, Other and unspecified bipola r disorders 296.89 ; Posttraumatic stress disorder 309.81 and Attention deficit disorder of childhood without mention of hyperactivity 314.00 [facility] [address] [facility] [id number] [address] [place] [address] Dec, Migraines 346.90 [facility] [address] [facility] [id number] [address] [place] [address] Dec, Other and unspecified bipola r disorders 296.89 ; Posttraumatic stress disorder 309.81 and Attention deficit disorder of childhood without mention of hyperactivity 314.00 [facility] [address] [facility] [id number] [address] [place] [address] Dec, [facility] [address] [facility] [id number] [address] [place] [address] Dec, Bipolar II disorder 296.89 ; Social phobia 300.23 ; Posttraumatic stress disorder 309.81 and Attention deficit disorder of childhood without mention of hyperactivity 314.00 [facility] [address] [facility] [id number] [address] [place] [address] Dec, Other and unspecified bipola r disorders 296.89 ; Posttraumatic stress disorder 309.81 and Attention deficit disorder of childhood without mention of hyperactivity 314.00 [facility] [address] [facility] [id number] [address] [place] [address] October, Other and unspecified bipola r disorders 296.89 ; Posttraumatic stress disorder 309.81 and Attention deficit disorder of childhood without mention of hyperactivity 314.00 [facility] [address] [facility] [id number] [address] [place] [address] October, [facility] [address] [id number] [address] [place] [phone] October, [facility] [address] [id number] [address] [place] [phone] October, [facility] [address] [facility] [id number] [address] [place] [phone] October, [facility] [address] [facility] [id number] [address] [place] [address] October, Attention deficit disorder o f childhood without mention of hyperactivity 314.00 ; Posttraumatic stress disorder 309.81 ; Social phobia 300.23 and Other and unspecified bipolar disorders 296.89 [facility] [address] [id number] [address] [place] [address] Oct, [facility] [address] [facility] [id number] [address] [place] [phone] Oct, [facility] [address] [id number] [address] [place] [address] Aug, [facility] [address] [id number] [address] [place] [phone] Aug, [facility] [address] [id number] [address] [place] [id number] Aug, [facility] [address] [id number] [address] [place] [phone] Aug, [facility] [address] [id number] [address] [place] [id number] Aug, [facility] [address] [id number] [address] [place] [phone] Aug, [facility] [address] [id number] [address] [place] [phone] Aug, [facility] [address] [id number] [address] [place] [phone] Aug, [facility] [address] [id number] [facility] [place] [address] 17 Aug, 2014 [facility] [address] [id number] [facility] [place] [address] 17 Aug, 2014 [facility] [address] [id number] [facility] [place] [address] 13 Aug, 2014 [facility] [address] [id number] [address] [place] [address], [place] [address] 13 Aug, 2014 [facility] [address] [id number] [address] [place] [address], [place] [address] 12 Aug, 2014 [facility] [address] [id number] [address] [place] [address], [place] [address] 12 Aug, 2014 [facility] [address] [id number] [address] [place] [address], [place] [address] 12 Aug, 2014 [facility] [address] [id number] [address] [place] [address], [place] [address] Aug, [facility] [address] [id number] [address] [place] [address], [place] [address] Aug, [facility] [address] [id number] [address] [place] [address], [place] [address] Aug, [facility] [address] [id number] [address] [place] [address], [place] [address] Aug, [facility] [address] [id number] [address] [place] [address], [place] [address] Aug, [facility] [address] [id number] [address] [place] [address], [place] [address] Aug, [facility] [address] [id number] [address] [place] [address], [place] [address] 04 Aug, 2014 [facility] [address] [id number] [address] [place] [address], [place] [address] Aug, [facility] [address] [id number] [address] [place] [address], [place] [address] Aug, [facility] [address] [id number] [address] [place] [address], [place] [address] Aug, [facility] [address] [id number] [address] [place] [address], [place] [address] Aug, [facility] [address] [id number] [address] [place] [address], [place] [address] Aug, [facility] [address] [id number] [address] [place] [address], [place] [address] Aug, [facility] [address] [id number] [address] [place] [address], [place] [address] Aug, [facility] [address] [id number] [address] [place] [address], [place] [address] Aug, [facility] [address] [id number] [address] [place] [address], [place] [address] Jul, [facility] [address] [id number] [address] [place] [address], [place] [address] Jul, [facility] [address] [id number] [address] [place] [address], [place] [address] Jul, [facility] [address] [id number] [address] [place] [address], [place] [address] Jul, [facility] [address] [id number] [address] [place] [address], [place] [address] Jul, [facility] [address] [id number] [address] [place] [phone] Jul, [facility] [address] [id number] [address] [place] [address], [place] [address] Jul, [facility] [address] [id number] [address] [place] [address], [place] [address] Jul, [facility] [address] [id number] [address] [place] [address], [place] [address] Jun, [facility] [address] [id number] [address] [place] [address] Jun, [facility] [address] [id number] [address] [place] [address] Jun, [facility] [address] [id number] [address] [place] [phone] Jun, [facility] [address] [id number] [address] [place] [phone] May, [facility] [address] [id number] [address] [place] [phone] May, [facility] [address] [id number] [address] [place] [phone] May, [facility] [address] [id number] [address] [place] [phone] May, [facility] [address] [id number] [address] [place] [phone] May, [facility] [address] [id number] [address] [place] [phone] Apr, [facility] [address] [id number] [address] [place] [phone] Apr, IMMUNIZATIONS No Known Immunizations SOCIAL HISTORY Never Assessed REASON FOR VISIT vyvanse 11/30/2017 PLAN OF CARE VITAL SIGNS MEDICATIONS Medication Instructions Dosage Frequency Start Date End Date Duration S tatus Vyvanse 30 MG Orally Once a day for ADHD 1 capsule in the morning October, 28 days Active RESULTS No Results PROCEDURES No Known procedures INSTRUCTIONS MEDICATIONS ADMINISTERED No Known Medications MEDICAL (GENERAL) HISTORY Type Description Date Medical History Hypertension Medical History GERD Medical History Bipolar Surgical History Hernia right ingual Surgical History Colonoscopy october 2014 Hospitalization History surgeries Hospitalization History ER for dehydration and vomitting 10/04/15
--- OUTSIDE RECORDS SUMMARY | 2019-11-11 19:12 | XMS REPORT ---
Author Author [facility] Address [address] [place] [address] Care Team Providers Care Burr Picker Name Role Phone FLEX GUILLERMO Unavailable PROBLEMS Type Condition ICD9-CM Code ALR96-GK Code Onset Dates Condition S tatus SNOMED Code Problem Social anxiety disorder F40.10 Active 67598876 Problem Hyperlipidemia E78.5 Active 28837 004 Problem Hypertension I10 Active 2089133 3 Problem Posttraumatic stress disorder F43.10 Active 62243816 Problem Bipolar 2 disorder F31.81 Active 8 6093352 Problem Attention deficit disorder F90.0 Act shalom 872165856 Problem Lumbago with sciatica, right side M54.41 Active [id number] Problem Lumbago with sciatica, left side M54.42 Active 944132538 Problem Urinary hesitancy R39.11 Active 59 97092 Problem Gastroesophageal reflux disease without esophagitis K21.9 Active 811099576 Problem Other chronic pain G89.29 Active 8 1277675 Problem Chronic post-traumatic stress disorder (PTSD) F43. 12 Active [id number] ALLERGIES No Information ENCOUNTERS Encounter Location Date Diagnosis [facility] [address] [id number] [address] [place] [id number] May, [facility] [address] [facility] [id number] [address] [place] [phone] Mar, [facility] [address] [facility] [id number] [address] [place] [phone] Jan, [facility] [address] [id number] [address] [place] [id number] Dec, Bipolar 2 disorder F31.81 ; Social anxiety disorder F40.10 and Chronic post-traumatic stress disorder (PTSD) F43.12 [facility] [address] [id number] [address] [place] [phone] Dec, [facility] [address] [id number] [address] [place] [phone] Dec, [facility] [address] [id number] [address] [place] [phone] Dec, Upper respiratory tract infe ction, unspecified type J06.9 [facility] [address] [facility] [id number] [address] [place] [phone] October, [facility] [address] [id number] [address] [place] [address] Oct, Bipolar 2 disorder F31.81 ; Attention deficit disorder F90.0 ; Social anxiety disorder F40.10 and Chronic post-traumatic stress disorder (PTSD) F43.12 [place] [address] [facility] [id number] [address] [place] [phone] Oct, [place] [address] [id number] [address] [place] [phone] Oct, [facility] [address] [facility] [id number] [address] [place] [phone] Aug, [place] [address] [facility] [id number] [address] [place] [address] Aug, [place] [address] [facility] [id number] [address] [place] [address] Jul, Strain of lumbar region, ini tial encounter S39.012A [facility] [address] [id number] [address] [place] [phone] Jul, Lumbago with sciatica, left side M54.42 and Lumbago with sciatica, right side M54.41 [facility] [address] [facility] [id number] [address] [place] [phone] Jul, Low back pain M54.5 and Othe r chronic pain G89.29 [facility] [address] [facility] [id number] [address] [place] [phone] Jul, [facility] [address] [facility] [id number] [address] [place] [address] Jul, Bipolar 2 disorder F31.81 ; Attention deficit disorder F90.0 and Social anxiety disorder F40.10 [facility] [address] [facility] [id number] [address] [place] [phone] Jun, [facility] [address] [facility] [id number] [address] [place] [phone] May, [facility] [address] [facility] [id number] [address] [place] [address] Apr, Bipolar 2 disorder F31.81 ; Attention deficit disorder F90.0 ; Social anxiety disorder F40.10 and Chronic post-traumatic stress disorder (PTSD) F43.12 [facility] [address] [id number] [address] [place] [phone] Apr, [facility] [address] [id number] [address] [place] [phone] Apr, Hyperlipidemia E78.5 [facility] [address] [facility] [id number] [address] [place] [phone] Mar, Encounter for immunization Z 23 and Tinea cruris B35.6 [facility] [address] [facility] [id number] [address] [place] [phone] Mar, [facility] [address] [facility] [id number] [address] [place] [phone] Jan, [facility] [address] [facility] [id number] [address] [place] [phone] Dec, [facility] [address] [facility] [id number] [address] [place] [phone] Dec, [facility] [address] [facility] [id number] [address] [place] [address] Dec, Bipolar 2 disorder F31.81 ; Social anxiety disorder F40.10 and Attention deficit disorder F90.0 [facility] [address] [id number] [address] [place] [phone] Dec, [facility] [address] [id number] [address] [place] [phone] Dec, Hypertension I10 [facility] [address] [id number] [address] [place] [phone] October, [facility] [address] [id number] [address] [place] [phone] Oct, [facility] [address] [id number] [address] [place] [address] Oct, Nasal congestion R09.81 [facility] [address] [facility] [id number] [address] [place] [address] Oct, Social anxiety disorder F40. 10 ; Bipolar 2 disorder F31.81 and Attention deficit disorder F90.0 [facility] [address] [id number] [address] [place] [phone] Aug, [facility] [address] [id number] [address] [place] [phone] Aug, [facility] [address] [facility] [id number] [address] [place] [phone] Jul, Nasal congestion R09.81 [facility] [address] [id number] [address] [place] [id number] Jul, [facility] [address] [facility] [id number] [address] [place] [address] Jun, Bipolar 2 disorder F31.81 ; Attention deficit disorder F90.0 ; Social anxiety disorder F40.10 and Chronic post-traumatic stress disorder (PTSD) F43.12 [facility] [address] [id number] [address] [place] [id number] Jun, [facility] [address] [facility] [id number] [address] [place] [address] May, [facility] [address] [id number] [address] [place] [id number] 14 Apr, 2016 Attention deficit disorder F 90.0 [facility] [address] [address] Apr, Urinary hesitancy R39.11 ; H yperlipidemia E78.5 and Encounter for immunization Z23 [facility] [address] [facility] [id number] [place] [phone] Apr, [facility] [id number] [place] [address] Mar, [facility] [address] [address] Jan, [facility] [id number] [place] [address] Dec, [facility] [address] [address] Dec, [facility] [id number] [place] [address] Dec, Bipolar 2 disorder F31.81 ; Attention deficit disorder F90.0 ; Posttraumatic stress disorder F43.10 and Social anxiety disorder F40.10 [facility] [address] [facility] [id number] [address] [place] [phone] Dec, Scabies exposure Z20.89 and Scabies B86 [facility] [id number] [place] [address] Dec, [facility] [id number] [place] [address] Dec, Hypertension I10 and Gastroe sophageal reflux disease without esophagitis K21.9 [facility] [id number] [address] [place] [phone] October, [facility] [id number] [place] [address] October, [facility] [address] [facility] [id number] [address] [place] [address] Oct, Bipolar 2 disorder F31.81 ; Posttraumatic stress disorder F43.10 ; Attention deficit disorder F90.0 and Social anxiety disorder F40.10 [facility] [address] [facility] [id number] [address] [place] [phone] Oct, [facility] [address] [facility] [id number] [address] [place] [address] Oct, Hypertension I10 and Nasal c ongestion R09.81 [facility] [address] [facility] [id number] [address] [place] [phone] Aug, [facility] [address] [facility] [id number] [address] [place] [phone] Aug, [facility] [address] [facility] [id number] [address] [place] [phone] Aug, [facility] [address] [facility] [id number] [address] [place] [phone] Aug, [facility] [id number] [address] [place] [id number] Aug, [facility] [id number] [place] [address] Aug, Hypertension I10 and Tremor R25.1 [facility] [address] [facility] [id number] [address] [place] [phone] Aug, Bipolar 2 disorder F31.81 ; Posttraumatic stress disorder F43.10 ; Attention deficit disorder F90.0 and Social anxiety disorder F40.10 [facility] [id number] [place] [phone] Jul, [facility] [id number] [address] [place] [address] Jul, Hyperlipidemia E78.5 [facility] [id number] [place] [address] Jul, Hypertension I10 and Hyperli pidemia E78.5 [facility] [address] [facility] [id number] [address] [place] [address] Jun, Bipolar 2 disorder F31.81 ; Posttraumatic stress disorder F43.10 ; Attention deficit disorder F90.0 and Social anxiety disorder F40.10 [facility] [address] [facility] [id number] [address] [place] [address] May, [facility] [address] [id number] [address] [place] [address] May, [facility] [address] [facility] [id number] [address] [place] [phone] Apr, Bipolar 2 disorder F31.81 ; Posttraumatic stress disorder F43.10 ; Attention deficit disorder F90.0 and Social phobia F40.10 [facility] [id number] [place] [phone] Apr, Bipolar 2 disorder F31.81 ; Posttraumatic stress disorder F43.10 and Attention deficit disorder F90.0 [facility] [address] [facility] [id number] [address] [place] [phone] Apr, [facility] [address] [facility] [id number] [address] [place] [phone] Apr, [facility] [address] [facility] [id number] [address] [place] [phone] Apr, [facility] [address] [id number] [address] [place] [phone] Mar, [facility] [address] [id number] [address] [place] [id number] Mar, [facility] [address] [facility] [id number] [address] [place] [phone] Jan, [facility] [address] [facility] [id number] [address] [place] [phone] Jan, [facility] [address] [facility] [id number] [address] [place] [address] Jan, Bipolar II disorder 296.89 ; Posttraumatic stress disorder 309.81 ; Social phobia 300.23 and Attention deficit disorder of childhood without mention of hyperactivity 314.00 [facility] [address] [facility] [id number] [address] [place] [phone] Jan, Other and unspecified bipola r disorders 296.89 ; Posttraumatic stress disorder 309.81 and Attention deficit disorder of childhood without mention of hyperactivity 314.00 [facility] [address] [facility] [id number] [address] [place] [phone] Jan, [facility] [address] [facility] [id number] [address] [place] [phone] Dec, Other and unspecified bipola r disorders 296.89 ; Posttraumatic stress disorder 309.81 and Attention deficit disorder of childhood without mention of hyperactivity 314.00 [facility] [id number] [address] [place] [address] Dec, Migraines 346.90 [facility] [address] [facility] [id number] [address] [place] [address] Dec, Other and unspecified bipola r disorders 296.89 ; Posttraumatic stress disorder 309.81 and Attention deficit disorder of childhood without mention of hyperactivity 314.00 [facility] [id number] [address] [place] [phone] Dec, [facility] [address] [facility] [id number] [address] [place] [address] Dec, Bipolar II disorder 296.89 ; Social phobia 300.23 ; Posttraumatic stress disorder 309.81 and Attention deficit disorder of childhood without mention of hyperactivity 314.00 [facility] [address] [facility] [id number] [address] [place] [address] Dec, Other and unspecified bipola r disorders 296.89 ; Posttraumatic stress disorder 309.81 and Attention deficit disorder of childhood without mention of hyperactivity 314.00 [facility] [address] [facility] [id number] [address] [place] [address] October, Other and unspecified bipola r disorders 296.89 ; Posttraumatic stress disorder 309.81 and Attention deficit disorder of childhood without mention of hyperactivity 314.00 [facility] [address] [id number] [address] [place] [phone] October, [facility] [address] [id number] [address] [place] [phone] October, [facility] [address] [id number] [address] [place] [phone] October, [facility] [address] [id number] [address] [place] [phone] October, [facility] [address] [id number] [address] [place] [address] October, Attention deficit disorder o f childhood without mention of hyperactivity 314.00 ; Posttraumatic stress disorder 309.81 ; Social phobia 300.23 and Other and unspecified bipolar disorders 296.89 [facility] [address] [id number] [address] [place] [phone] Oct, [facility] [address] [id number] [address] [place] [phone] Oct, [facility] [address] [facility] [id number] [address] [place] [id number] Aug, [facility] [address] [id number] [address] [place] [phone] Aug, [facility] [address] [id number] [address] [place] [phone] Aug, [facility] [address] [id number] [address] [place] [phone] Aug, [facility] [address] [facility] [id number] [address] [place] [phone] Aug, [facility] [address] [id number] [address] [place] [phone] Aug, [facility] [address] [id number] [facility] [place] [address] 17 Aug, 2014 [facility] [address] [id number] [facility] [place] [address] 17 Aug, 2014 [facility] [address] [id number] [facility] [place] [address] 17 Aug, 2014 [facility] [address] [id number] [address] [place] [address], [place] [address] 17 Aug, 2014 [facility] [address] [id number] [address] [place] [address], [place] [address] 13 Aug, 2014 [facility] [address] [id number] [address] [place] [address], [place] [address] 13 Aug, 2014 [facility] [address] [id number] [address] [place] [address], [place] [address] 12 Aug, 2014 [facility] [address] [id number] [address] [place] [address], [place] [address] 12 Aug, 2014 [facility] [address] [id number] [address] [place] [address], [place] [address] 12 Aug, 2014 [facility] [address] [id number] [address] [place] [address], [place] [address] Aug, [facility] [address] [id number] [address] [place] [address], [place] [address] Aug, [facility] [address] [id number] [address] [place] [address], [place] [address] Aug, [facility] [address] [id number] [address] [place] [address], [place] [address] Aug, [facility] [address] [id number] [address] [place] [address], [place] [address] Aug, [facility] [address] [id number] [address] [place] [address], [place] [address] 04 Aug, 2014 [facility] [address] [id number] [address] [place] [address], [place] [address] Aug, [facility] [address] [id number] [address] [place] [address], [place] [address] Aug, [facility] [address] [id number] [address] [place] [address], [place] [address] Aug, [facility] [address] [id number] [address] [place] [address], [place] [address] Aug, [facility] [address] [id number] [address] [place] [address], [place] [address] Aug, [facility] [address] [id number] [address] [place] [address], [place] [address] Aug, [facility] [address] [id number] [address] [place] [address], [place] [address] Aug, [facility] [address] [id number] [address] [place] [address], [place] [address] Aug, [facility] [address] [id number] [address] [place] [address], [place] [address] Aug, [facility] [address] [id number] [address] [place] [address], [place] [address] Jul, [facility] [address] [id number] [address] [place] [address], [place] [address] Jul, [facility] [address] [id number] [address] [place] [address], [place] [address] Jul, [facility] [address] [id number] [address] [place] [address], [place] [address] Jul, [facility] [address] [id number] [address] [place] [address], [place] [address] Jul, [facility] [address] [id number] [address] [place] [address], [place] [address] Jul, [facility] [address] [id number] [address] [place] [address], [place] [address] Jul, [facility] [address] [id number] [address] [place] [id number] Jul, [facility] [address] [id number] [address] [place] [id number] Jun, [facility] [address] [id number] [address] [place] [id number] Jun, [facility] [address] [id number] [address] [place] [id number] Jun, [facility] [address] [id number] [address] [place] [phone] Jun, [facility] [address] [id number] [address] [place] [id number] May, [facility] [address] [id number] [address] [place] [id number] May, [facility] [address] [id number] [address] [place] [id number] May, [facility] [address] [id number] [address] [place] [phone] May, [facility] [address] [id number] [address] [place] [phone] May, [facility] [address] [id number] [address] [place] [id number] Apr, [facility] [address] [id number] [address] [place] [id number] Apr, IMMUNIZATIONS No Known Immunizations SOCIAL HISTORY Never Assessed REASON FOR VISIT Vyvanse 12/28/17 PLAN OF CARE VITAL SIGNS MEDICATIONS Medication Instructions Dosage Frequency Start Date End Date Duration S sekouus Vyvanse 30 MG Orally Once a day for ADHD 1 capsule in the morning Dec, 28 days Active RESULTS No Results PROCEDURES No Known procedures INSTRUCTIONS MEDICATIONS ADMINISTERED No Known Medications MEDICAL (GENERAL) HISTORY Type Description Date Medical History Hypertension Medical History GERD Medical History Bipolar Surgical History Hernia right ingual Surgical History Colonoscopy october 2014 Hospitalization History surgeries Hospitalization History ER for dehydration and vomitting 10/04/15
--- OUTSIDE RECORDS SUMMARY | 2019-11-11 19:12 | XMS REPORT ---
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 Silk Screen Printer Name Role Phone FLEX GUILLERMO Unavailable PROBLEMS Type Condition ICD9-CM Code PXU62-BD Code Onset Dates Condition S tatus SNOMED Code Problem Social anxiety disorder F40.10 Active 21468436 Problem Hyperlipidemia E78.5 Active 48239 004 Problem Hypertension I10 Active 7189429 3 Problem Posttraumatic stress disorder F43.10 Active 95373297 Problem Bipolar 2 disorder F31.81 Active 8 2638991 Problem Attention deficit disorder F90.0 Act shalom 999055141 Problem Lumbago with sciatica, right side M54.41 Active [id number] Problem Lumbago with sciatica, left side M54.42 Active 745619713 Problem Urinary hesitancy R39.11 Active 59 65487 Problem Gastroesophageal reflux disease without esophagitis K21.9 Active 067457260 Problem Other chronic pain G89.29 Active 8 4898977 Problem Chronic post-traumatic stress disorder (PTSD) F43. 12 Active [id number] ALLERGIES No Information ENCOUNTERS Encounter Location Date Diagnosis [facility] [address] [facility] [id number] [address] [place] [phone] May, [facility] [address] [facility] [id number] [address] [place] [address] Dec, Bipolar 2 disorder F31.81 ; Social anxiety disorder F40.10 and Chronic post-traumatic stress disorder (PTSD) F43.12 [facility] [address] [facility] [id number] [address] [place] [phone] Dec, [facility] [address] [facility] [id number] [address] [place] [phone] Dec, [facility] [address] [facility] [id number] [address] [place] [phone] Dec, Upper respiratory tract infe ction, unspecified type J06.9 [facility] [address] [id number] [address] [place] [phone] October, [facility] [address] [id number] [address] [place] [address] Oct, Bipolar 2 disorder F31.81 ; Attention deficit disorder F90.0 ; Social anxiety disorder F40.10 and Chronic post-traumatic stress disorder (PTSD) F43.12 [facility] [address] [id number] [address] [place] [phone] Oct, [facility] [address] [id number] [address] [place] [address] Oct, [facility] [address] [facility] [id number] [address] [place] [phone] Aug, [facility] [address] [id number] [address] [place] [phone] Aug, [facility] [address] [id number] [address] [place] [address] Jul, Strain of lumbar region, ini tial encounter S39.012A [facility] [address] [id number] [address] [place] [address] Jul, Lumbago with sciatica, left side M54.42 and Lumbago with sciatica, right side M54.41 [facility] [address] [id number] [address] [place] [address] Jul, Low back pain M54.5 and Othe r chronic pain G89.29 [facility] [address] [id number] [address] [place] [phone] Jul, [facility] [address] [facility] [id number] [address] [place] [address] Jul, Bipolar 2 disorder F31.81 ; Attention deficit disorder F90.0 and Social anxiety disorder F40.10 [facility] [address] [facility] [id number] [address] [place] [phone] Jun, [facility] [address] [facility] [id number] [address] [place] [phone] May, [facility] [address] [facility] [id number] [address] [place] [address] Apr, Bipolar 2 disorder F31.81 ; Attention deficit disorder F90.0 ; Social anxiety disorder F40.10 and Chronic post-traumatic stress disorder (PTSD) F43.12 [facility] [address] [facility] [id number] [address] [place] [address] Apr, [facility] [address] [facility] [id number] [address] [place] [phone] Apr, Hyperlipidemia E78.5 [facility] [address] [facility] [id number] [address] [place] [phone] Mar, Encounter for immunization Z 23 and Tinea cruris B35.6 [facility] [address] [facility] [id number] [address] [place] [phone] Mar, [facility] [address] [facility] [id number] [address] [place] [phone] Jan, [facility] [address] [facility] [id number] [address] [place] [phone] Dec, [facility] [address] [facility] [id number] [address] [place] [phone] Dec, [facility] [address] [facility] [id number] [address] [place] [address] Dec, Bipolar 2 disorder F31.81 ; Social anxiety disorder F40.10 and Attention deficit disorder F90.0 [facility] [address] [facility] [id number] [address] [place] [phone] Dec, [facility] [address] [facility] [id number] [address] [place] [phone] Dec, Hypertension I10 [facility] [address] [id number] [address] [place] [phone] October, [facility] [address] [id number] [address] [place] [phone] Oct, [facility] [address] [facility] [id number] [address] [place] [address] Oct, Nasal congestion R09.81 [facility] [address] [facility] [id number] [address] [place] [address] Oct, Social anxiety disorder F40. 10 ; Bipolar 2 disorder F31.81 and Attention deficit disorder F90.0 [facility] [address] [id number] [address] [place] [phone] Aug, [facility] [address] [facility] [id number] [address] [place] [address] Aug, [facility] [address] [facility] [id number] [address] [place] [phone] Jul, Nasal congestion R09.81 [facility] [address] [facility] [id number] [address] [place] [address] Jul, [facility] [address] [facility] [id number] [address] [place] [address] Jun, Bipolar 2 disorder F31.81 ; Attention deficit disorder F90.0 ; Social anxiety disorder F40.10 and Chronic post-traumatic stress disorder (PTSD) F43.12 [facility] [address] [facility] [id number] [address] [place] [address] Jun, [facility] [address] [facility] [id number] [address] [place] [address] May, [facility] [address] [facility] [id number] [address] [place] [phone] 14 Apr, 2016 Attention deficit disorder F 90.0 [facility] [address] [facility] [id number] [address] [place] [address] Apr, Urinary hesitancy R39.11 ; H yperlipidemia E78.5 and Encounter for immunization Z23 [facility] [address] [facility] [id number] [address] [place] [phone] Apr, [facility] [address] [facility] [id number] [address] [place] [phone] Mar, [facility] [address] [facility] [id number] [address] [place] [phone] Jan, [facility] [address] [facility] [id number] [address] [place] [phone] Dec, [facility] [address] [facility] [id number] [address] [place] [phone] Dec, [facility] [address] [facility] [id number] [address] [place] [address] Dec, Bipolar 2 disorder F31.81 ; Attention deficit disorder F90.0 ; Posttraumatic stress disorder F43.10 and Social anxiety disorder F40.10 [facility] [address] [facility] [id number] [address] [place] [phone] Dec, Scabies exposure Z20.89 and Scabies B86 [facility] [address] [facility] [id number] [address] [place] [phone] Dec, [facility] [address] [facility] [id number] [address] [place] [phone] Dec, Hypertension I10 and Gastroe sophageal reflux disease without esophagitis K21.9 [facility] [address] [facility] [id number] [address] [place] [phone] October, [facility] [address] [facility] [id number] [address] [place] [address] October, [facility] [address] [facility] [id number] [address] [place] [address] Oct, Bipolar 2 disorder F31.81 ; Posttraumatic stress disorder F43.10 ; Attention deficit disorder F90.0 and Social anxiety disorder F40.10 [facility] [address] [facility] [id number] [address] [place] [address] Oct, [facility] [address] [address] Oct, Hypertension I10 and Nasal c ongestion R09.81 [facility] [address] [id number] [address] [place] [phone] Aug, [facility] [id number] [place] [address] Aug, [facility] [address] [facility] [id number] [place] [address] Aug, [facility] [id number] [place] [address] Aug, [facility] [address] [address] Aug, [facility] [address] [address] Aug, Hypertension I10 and Tremor R25.1 [facility] [address] [address] Aug, Bipolar 2 disorder F31.81 ; Posttraumatic stress disorder F43.10 ; Attention deficit disorder F90.0 and Social anxiety disorder F40.10 [facility] [address] [id number] [address] [place] [phone] Jul, [facility] [address] [id number] [address] [place] [phone] Jul, Hyperlipidemia E78.5 [facility] [id number] [place] [address] Jul, Hypertension I10 and Hyperli pidemia E78.5 [facility] [address] [id number] [address] [place] [address] Jun, Bipolar 2 disorder F31.81 ; Posttraumatic stress disorder F43.10 ; Attention deficit disorder F90.0 and Social anxiety disorder F40.10 [facility] [address] [id number] [address] [place] [phone] May, [facility] [address] [facility] [id number] [address] [place] [phone] May, [facility] [address] [facility] [id number] [address] [place] [address] Apr, Bipolar 2 disorder F31.81 ; Posttraumatic stress disorder F43.10 ; Attention deficit disorder F90.0 and Social phobia F40.10 [facility] [address] [facility] [id number] [address] [place] [address] Apr, Bipolar 2 disorder F31.81 ; Posttraumatic stress disorder F43.10 and Attention deficit disorder F90.0 [facility] [address] [facility] [id number] [address] [place] [phone] Apr, [facility] [address] [facility] [id number] [address] [place] [phone] Apr, [facility] [address] [facility] [id number] [address] [place] [phone] Apr, [facility] [address] [facility] [id number] [address] [place] [phone] Mar, [facility] [address] [facility] [id number] [address] [place] [phone] Mar, [facility] [address] [facility] [id number] [address] [place] [phone] Jan, [facility] [address] [facility] [id number] [address] [place] [phone] Jan, [facility] [address] [facility] [id number] [address] [place] [phone] Jan, Bipolar II disorder 296.89 ; Posttraumatic stress disorder 309.81 ; Social phobia 300.23 and Attention deficit disorder of childhood without mention of hyperactivity 314.00 [facility] [address] [facility] [id number] [address] [place] [phone] Jan, Other and unspecified bipola r disorders 296.89 ; Posttraumatic stress disorder 309.81 and Attention deficit disorder of childhood without mention of hyperactivity 314.00 [facility] [address] [facility] [id number] [address] [place] [phone] Jan, [facility] [address] [facility] [id number] [address] [place] [address] Dec, Other and unspecified bipola r disorders 296.89 ; Posttraumatic stress disorder 309.81 and Attention deficit disorder of childhood without mention of hyperactivity 314.00 [facility] [address] [facility] [id number] [address] [place] [address] Dec, Migraines 346.90 [facility] [address] [facility] [id number] [address] [place] [phone] Dec, Other and unspecified bipola r disorders 296.89 ; Posttraumatic stress disorder 309.81 and Attention deficit disorder of childhood without mention of hyperactivity 314.00 [facility] [address] [facility] [id number] [address] [place] [phone] Dec, [facility] [address] [facility] [id number] [address] [place] [address] Dec, Bipolar II disorder 296.89 ; Social phobia 300.23 ; Posttraumatic stress disorder 309.81 and Attention deficit disorder of childhood without mention of hyperactivity 314.00 [facility] [address] [facility] [id number] [address] [place] [address] Dec, Other and unspecified bipola r disorders 296.89 ; Posttraumatic stress disorder 309.81 and Attention deficit disorder of childhood without mention of hyperactivity 314.00 [facility] [address] [facility] [id number] [address] [place] [address] October, Other and unspecified bipola r disorders 296.89 ; Posttraumatic stress disorder 309.81 and Attention deficit disorder of childhood without mention of hyperactivity 314.00 [facility] [address] [facility] [id number] [address] [place] [phone] October, [facility] [address] [id number] [address] [place] [phone] October, [facility] [address] [id number] [address] [place] [phone] October, [facility] [address] [facility] [id number] [address] [place] [address] October, [facility] [address] [facility] [id number] [address] [place] [phone] October, Attention deficit disorder o f childhood without mention of hyperactivity 314.00 ; Posttraumatic stress disorder 309.81 ; Social phobia 300.23 and Other and unspecified bipolar disorders 296.89 [facility] [address] [id number] [address] [place] [phone] Oct, [facility] [address] [facility] [id number] [address] [place] [phone] Oct, [facility] [address] [id number] [address] [place] [phone] Aug, [facility] [address] [id number] [address] [place] [phone] Aug, [facility] [address] [id number] [address] [place] [phone] Aug, [facility] [address] [id number] [address] [place] [phone] Aug, [facility] [address] [id number] [address] [place] [phone] Aug, [facility] [address] [id number] [address] [place] [phone] Aug, [facility] [address] [id number] [address] [place] [phone] Aug, [facility] [address] [id number] [address] [place] [phone] Aug, [facility] [address] [id number] [facility] [place] [address] 17 Aug, 2014 [facility] [address] [id number] [facility] [place] [address] 17 Aug, 2014 [facility] [address] [id number] [facility] [place] [address] 13 Aug, 2014 [facility] [address] [id number] [address] [place] [address], [place] [address] 13 Aug, 2014 [facility] [address] [id number] [address] [place] [address], [place] [address] 12 Aug, 2014 [facility] [address] [id number] [address] [place] [address], [place] [address] 12 Aug, 2014 [facility] [address] [id number] [address] [place] [address], [place] [address] 12 Aug, 2014 [facility] [address] [id number] [address] [place] [address], [place] [address] Aug, [facility] [address] [id number] [address] [place] [address], [place] [address] Aug, [facility] [address] [id number] [address] [place] [address], [place] [address] Aug, [facility] [address] [id number] [address] [place] [address], [place] [address] Aug, [facility] [address] [id number] [address] [place] [address], [place] [address] Aug, [facility] [address] [id number] [address] [place] [address], [place] [address] Aug, [facility] [address] [id number] [address] [place] [address], [place] [address] 04 Aug, 2014 [facility] [address] [id number] [address] [place] [address], [place] [address] Aug, [facility] [address] [id number] [address] [place] [address], [place] [address] Aug, [facility] [address] [id number] [address] [place] [address], [place] [address] Aug, [facility] [address] [id number] [address] [place] [address], [place] [address] Aug, [facility] [address] [id number] [address] [place] [address], [place] [address] Aug, [facility] [address] [id number] [address] [place] [address], [place] [address] Aug, [facility] [address] [id number] [address] [place] [address], [place] [address] Aug, [facility] [address] [id number] [address] [place] [address], [place] [address] Aug, [facility] [address] [id number] [address] [place] [address], [place] [address] Jul, [facility] [address] [id number] [address] [place] [address], [place] [address] Jul, [facility] [address] [id number] [address] [place] [address], [place] [address] Jul, [facility] [address] [id number] [address] [place] [address], [place] [address] Jul, [facility] [address] [id number] [address] [place] [address], [place] [address] Jul, [facility] [address] [id number] [address] [place] [phone] Jul, [facility] [address] [id number] [address] [place] [address], [place] [address] Jul, [facility] [address] [id number] [address] [place] [address], [place] [address] Jul, [facility] [address] [id number] [address] [place] [address], [place] [address] Jun, [facility] [address] [id number] [address] [place] [phone] Jun, [facility] [address] [id number] [address] [place] [phone] Jun, [facility] [address] [id number] [address] [place] [phone] Jun, [facility] [address] [id number] [address] [place] [phone] May, [facility] [address] [id number] [address] [place] [address] May, [facility] [address] [id number] [address] [place] [phone] May, [facility] [address] [id number] [address] [place] [phone] May, [facility] [address] [id number] [address] [place] [phone] May, [facility] [address] [id number] [address] [place] [phone] Apr, [facility] [address] [id number] [address] [place] [phone] Apr, IMMUNIZATIONS No Known Immunizations SOCIAL HISTORY Never Assessed REASON FOR VISIT vyvanse 11/02/2017 PLAN OF CARE VITAL SIGNS MEDICATIONS Medication [...]
--- OUTSIDE RECORDS SUMMARY | 2019-11-11 19:12 | XMS REPORT ---
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 Name Role Phone FLEX GUILLERMO Unavailable PROBLEMS Type Condition ICD9-CM Code XNB91-ES Code Onset Dates Condition S tatus SNOMED Code Problem Social anxiety disorder F40.10 Active 42781539 Problem Hyperlipidemia E78.5 Active 03168 004 Problem Hypertension I10 Active 6354197 3 Problem Posttraumatic stress disorder F43.10 Active 02941455 Problem Bipolar 2 disorder F31.81 Active 8 3083105 Problem Attention deficit disorder F90.0 Act shalom 498957950 Problem Lumbago with sciatica, right side M54.41 Active [id number] Problem Lumbago with sciatica, left side M54.42 Active 342754282 Problem Urinary hesitancy R39.11 Active 59 24218 Problem Gastroesophageal reflux disease without esophagitis K21.9 Active 672956535 Problem Other chronic pain G89.29 Active 8 0874194 Problem Chronic post-traumatic stress disorder (PTSD) F43. 12 Active [id number] ALLERGIES No Information ENCOUNTERS Encounter Location Date Diagnosis [facility] [address] [facility] [id number] [address] [place] [phone] May, [facility] [address] [facility] [id number] [address] [place] [address] Mar, [facility] [address] [facility] [id number] [address] [place] [id number] Mar, Lumbago with sciatica, left side M54.42 and Lumbago with sciatica, right side M54.41 [facility] [address] [facility] [id number] [address] [place] [phone] Jan, [facility] [address] [place] [id number] [address] [place] [address] Dec, Bipolar 2 disorder F31.81 ; Social anxiety disorder F40.10 and Chronic post-traumatic stress disorder (PTSD) F43.12 [facility] [address] [id number] [address] [place] [phone] Dec, [facility] [address] [id number] [address] [place] [address] Dec, [facility] [address] [id number] [address] [place] [phone] Dec, Upper respiratory tract infe ction, unspecified type J06.9 [facility] [address] [id number] [address] [place] [address] October, [facility] [address] [id number] [address] [place] [id number] Oct, Bipolar 2 disorder F31.81 ; Attention deficit disorder F90.0 ; Social anxiety disorder F40.10 and Chronic post-traumatic stress disorder (PTSD) F43.12 [facility] [address] [id number] [address] [place] [address] Oct, [facility] [address] [id number] [address] [place] [address] Oct, [facility] [address] [id number] [address] [place] [address] Aug, [facility] [address] [id number] [address] [place] [address] Aug, [facility] [address] [id number] [address] [place] [address] Jul, Strain of lumbar region, ini tial encounter S39.012A [facility] [address] [id number] [address] [place] [address] Jul, Lumbago with sciatica, left side M54.42 and Lumbago with sciatica, right side M54.41 [facility] [address] [id number] [address] [place] [address] Jul, Low back pain M54.5 and Othe r chronic pain G89.29 [facility] [address] [facility] [id number] [address] [place] [address] Jul, [facility] [address] [place] [id number] [place] [address] Jul, Bipolar 2 disorder F31.81 ; Attention deficit disorder F90.0 and Social anxiety disorder F40.10 [facility] [address] [facility] [id number] [place] [address] Jun, [facility] [address] [place] [id number] [place] [address] May, [facility] [address] [place] [id number] [place] [address] Apr, Bipolar 2 disorder F31.81 ; Attention deficit disorder F90.0 ; Social anxiety disorder F40.10 and Chronic post-traumatic stress disorder (PTSD) F43.12 [facility] [id number] [place] [address] Apr, [facility] [address] [id number] [place] [address] Apr, Hyperlipidemia E78.5 [facility] [address] [facility] [id number] [address] [place] [phone] Mar, Encounter for immunization Z 23 and Tinea cruris B35.6 [facility] [address] [facility] [id number] [address] [place] [address] Mar, [facility] [address] [place] [id number] [place] [address] Jan, [facility] [address] [place] [place] [id number] [address] [place] [phone] Dec, [facility] [address] [place] [place] [id number] [place] [address] Dec, [facility] [address] [id number] [address] [place] [address] Dec, Bipolar 2 disorder F31.81 ; Social anxiety disorder F40.10 and Attention deficit disorder F90.0 [facility] [address] [id number] [address] [place] [address] Dec, [facility] [address] [facility] [id number] [address] [place] [address] Dec, Hypertension I10 [facility] [address] [id number] [address] [place] [phone] October, [facility] [address] [facility] [id number] [address] [place] [phone] Oct, [facility] [address] [facility] [id number] [address] [place] [address] Oct, Nasal congestion R09.81 [facility] [address] [facility] [id number] [address] [place] [address] Oct, Social anxiety disorder F40. 10 ; Bipolar 2 disorder F31.81 and Attention deficit disorder F90.0 [facility] [address] [facility] [id number] [address] [place] [address] Aug, [facility] [address] [facility] [id number] [address] [place] [phone] Aug, [facility] [address] [id number] [address] [place] [address] Jul, Nasal congestion R09.81 [facility] [address] [facility] [id number] [address] [place] [address] Jul, [facility] [address] [facility] [id number] [address] [place] [address] Jun, Bipolar 2 disorder F31.81 ; Attention deficit disorder F90.0 ; Social anxiety disorder F40.10 and Chronic post-traumatic stress disorder (PTSD) F43.12 [facility] [address] [place] [id number] [address] [place] [address] Jun, [facility] [address] [place] [id number] [place] [address] May, [facility] [address] [place] [id number] [place] [address] Apr, Attention deficit disorder F 90.0 [facility] [address] [address] Apr, Urinary hesitancy R39.11 ; H yperlipidemia E78.5 and Encounter for immunization Z23 [facility] [address] [address] Apr, [facility] [address] [id number] [place] [address] Mar, [facility] [address] [address] Jan, [facility] [address] [address] Dec, [facility] [address] [address] Dec, [facility] [address] [place] [place] [id number] [place] [address] Dec, Bipolar 2 disorder F31.81 ; Attention deficit disorder F90.0 ; Posttraumatic stress disorder F43.10 and Social anxiety disorder F40.10 [facility] [address] [place] [place] [id number] [address] [place] [address] Dec, Scabies exposure Z20.89 and Scabies B86 [facility] [address] [place] [id number] [address] [place] [address] 24 Dec, 2015 [facility] [address] [place] [id number] [place] [address] 16 Dec, 2015 Hypertension I10 and Gastroe sophageal reflux disease without esophagitis K21.9 [facility] [address] [facility] [id number] [address] [place] [address] October, [facility] [address] [facility] [id number] [address] [place] [phone] October, [facility] [address] [facility] [id number] [address] [place] [phone] Oct, Bipolar 2 disorder F31.81 ; Posttraumatic stress disorder F43.10 ; Attention deficit disorder F90.0 and Social anxiety disorder F40.10 [facility] [address] [facility] [id number] [address] [place] [phone] Oct, [facility] [address] [facility] [id number] [address] [place] [address] Oct, Hypertension I10 and Nasal c ongestion R09.81 [facility] [address] [facility] [id number] [address] [place] [phone] Aug, [facility] [address] [facility] [id number] [address] [place] [phone] Aug, [facility] [address] [facility] [id number] [address] [place] [address] Aug, [facility] [address] [facility] [id number] [address] [place] [phone] Aug, [facility] [address] [facility] [id number] [address] [place] [phone] Aug, [facility] [address] [facility] [id number] [address] [place] [address] Aug, Hypertension I10 and Tremor R25.1 [facility] [address] [facility] [id number] [address] [place] [address] Aug, Bipolar 2 disorder F31.81 ; Posttraumatic stress disorder F43.10 ; Attention deficit disorder F90.0 and Social anxiety disorder F40.10 [facility] [address] [facility] [id number] [address] [place] [address] Jul, [facility] [address] [id number] [address] [place] [address] Jul, Hyperlipidemia E78.5 [facility] [address] [facility] [id number] [address] [place] [id number] Jul, Hypertension I10 and Hyperli pidemia E78.5 [facility] [address] [id number] [address] [place] [address] Jun, Bipolar 2 disorder F31.81 ; Posttraumatic stress disorder F43.10 ; Attention deficit disorder F90.0 and Social anxiety disorder F40.10 [facility] [address] [id number] [address] [place] [address] May, [facility] [address] [facility] [id number] [address] [place] [address] May, [facility] [address] [facility] [id number] [address] [place] [address] Apr, Bipolar 2 disorder F31.81 ; Posttraumatic stress disorder F43.10 ; Attention deficit disorder F90.0 and Social phobia F40.10 [facility] [address] [facility] [id number] [address] [place] [address] Apr, Bipolar 2 disorder F31.81 ; Posttraumatic stress disorder F43.10 and Attention deficit disorder F90.0 [facility] [address] [facility] [id number] [address] [place] [phone] Apr, [facility] [address] [id number] [address] [place] [phone] Apr, [facility] [address] [facility] [id number] [address] [place] [address] Apr, [facility] [address] [facility] [id number] [address] [place] [phone] Mar, [facility] [address] [facility] [id number] [address] [place] [address] Mar, [facility] [address] [facility] [id number] [address] [place] [address] Jan, [facility] [address] [facility] [id number] [address] [place] [address] Jan, [facility] [address] [facility] [id number] [address] [place] [address] Jan, Bipolar II disorder 296.89 ; Posttraumatic stress disorder 309.81 ; Social phobia 300.23 and Attention deficit disorder of childhood without mention of hyperactivity 314.00 [facility] [address] [facility] [id number] [address] [place] [phone] Jan, Other and unspecified bipola r disorders 296.89 ; Posttraumatic stress disorder 309.81 and Attention deficit disorder of childhood without mention of hyperactivity 314.00 [facility] [address] [facility] [id number] [address] [place] [address] Jan, [facility] [address] [facility] [id number] [address] [place] [address] Dec, Other and unspecified bipola r disorders 296.89 ; Posttraumatic stress disorder 309.81 and Attention deficit disorder of childhood without mention of hyperactivity 314.00 [facility] [address] [facility] [id number] [address] [place] [address] Dec, Migraines 346.90 [facility] [address] [facility] [id number] [address] [place] [address] Dec, Other and unspecified bipola r disorders 296.89 ; Posttraumatic stress disorder 309.81 and Attention deficit disorder of childhood without mention of hyperactivity 314.00 [facility] [address] [facility] [id number] [address] [place] [phone] Dec, [facility] [address] [facility] [id number] [address] [place] [address] Dec, Bipolar II disorder 296.89 ; Social phobia 300.23 ; Posttraumatic stress disorder 309.81 and Attention deficit disorder of childhood without mention of hyperactivity 314.00 [facility] [address] [facility] [id number] [address] [place] [address] Dec, Other and unspecified bipola r disorders 296.89 ; Posttraumatic stress disorder 309.81 and Attention deficit disorder of childhood without mention of hyperactivity 314.00 [facility] [address] [id number] [address] [place] [address] October, Other and unspecified bipola r disorders 296.89 ; Posttraumatic stress disorder 309.81 and Attention deficit disorder of childhood without mention of hyperactivity 314.00 [facility] [address] [id number] [address] [place] [address] October, [facility] [address] [id number] [address] [place] [address] October, [facility] [address] [id number] [address] [place] [address] October, [facility] [address] [id number] [address] [place] [address] October, [facility] [address] [id number] [address] [place] [address] October, Attention deficit disorder o f childhood without mention of hyperactivity 314.00 ; Posttraumatic stress disorder 309.81 ; Social phobia 300.23 and Other and unspecified bipolar disorders 296.89 [facility] [address] [id number] [address] [place] [address] Oct, [facility] [address] [id number] [address] [place] [phone] Oct, [facility] [address] [id number] [address] [place] [phone] Aug, [facility] [address] [id number] [address] [place] [address] Aug, [facility] [address] [id number] [address] [place] [address] Aug, [facility] [address] [id number] [address] [place] [phone] Aug, [facility] [address] [id number] [facility] [place] [address] 17 Aug, 2014 [facility] [address] [id number] [facility] [place] [address] 17 Aug, 2014 [facility] [address] [id number] [facility] [place] [address] 17 Aug, 2014 [facility] [address] [id number] [facility] [place] [address] 17 Aug, 2014 [facility] [address] [id number] [facility] [place] [address] 17 Aug, 2014 [facility] [address] [id number] [address] [place] [address], [place] [address] 17 Aug, 2014 [facility] [address] [id number] [address] [place] [address], [place] [address] 13 Aug, 2014 [facility] [address] [id number] [address] [place] [address], [place] [address] 13 Aug, 2014 [facility] [address] [id number] [address] [place] [address], [place] [address] 12 Aug, 2014 [facility] [address] [id number] [address] [place] [address], [place] [address] 12 Aug, 2014 [facility] [address] [id number] [address] [place] [address], [place] [address] 12 Aug, 2014 [facility] [address] [id number] [address] [place] [address], [place] [address] 12 Aug, 2014 [facility] [address] [id number] [address] [place] [address], [place] [address] Aug, [facility] [address] [id number] [address] [place] [address], [place] [address] Aug, [facility] [address] [id number] [address] [place] [address], [place] [address] 11 Aug, 2014 [facility] [address] [id number] [address] [place] [address], [place] [address] Aug, [facility] [address] [id number] [address] [place] [address], [place] [address] Aug, [facility] [address] [id number] [address] [place] [address], [place] [address] Aug, [facility] [address] [id number] [address] [place] [address], [place] [address] Aug, [facility] [address] [id number] [address] [place] [address], [place] [address] Aug, [facility] [address] [id number] [address] [place] [address], [place] [address] Aug, [facility] [address] [id number] [address] [place] [address], [place] [address] Aug, [facility] [address] [id number] [address] [place] [address], [place] [address] Aug, [facility] [address] [id number] [address] [place] [address], [place] [address] Aug, [facility] [address] [id number] [address] [place] [address], [place] [address] Aug, [facility] [address] [id number] [address] [place] [address], [place] [address] Aug, [facility] [address] [id number] [address] [place] [address], [place] [address] Jul, [facility] [address] [id number] [address] [place] [address], [place] [address] Jul, [facility] [address] [id number] [address] [place] [address], [place] [address] Jul, [facility] [address] [id number] [address] [place] [address], [place] [address] Jul, [facility] [address] [id number] [address] [place] [address], [place] [address] Jul, [facility] [address] [id number] [address] [place] [id number] Jul, [facility] [address] [id number] [address] [place] [id number] Jul, [facility] [address] [id number] [address] [place] [id number] Jul, [facility] [address] [id number] [address] [place] [id number] Jun, [facility] [address] [id number] [address] [place] [phone] Jun, [facility] [address] [id number] [address] [place] [id number] Jun, [facility] [address] [id number] [address] [place] [id number] Jun, [facility] [address] [id number] [address] [place] [phone] May, [facility] [address] [id number] [address] [place] [id number] May, [facility] [address] [id number] [address] [place] [phone] May, [facility] [address] [id number] [address] [place] [id number] May, [facility] [address] [id number] [address] [place] [phone] May, [facility] [address] [id number] [address] [place] [id number] Apr, [facility] [address] [id number] [address] [place] [id number] Apr, IMMUNIZATIONS No Known Immunizations SOCIAL HISTORY Never Assessed REASON FOR VISIT vyvanse 01/25/2018 PLAN OF CARE VITAL SIGNS MEDICATIONS Medication Instructions Dosage Frequency Start Date End Date Duration S lion Vyvanse 30 MG Orally Once a day [...]
--- OUTSIDE RECORDS SUMMARY | 2019-11-11 19:13 | XMS REPORT ---
Author Author [place] [facility] Address [address] [place] [address] Care Team Providers Care Student Assistance Counselor Name Role Phone GERRY BOATENG Unavailable PROBLEMS Type Condition ICD9-CM Code [id number] Code Onset Dates Condition S tatus SNOMED Code Problem Social anxiety disorder F40.10 Active 71295229 Problem Hyperlipidemia E78.5 Active 05381 004 Problem Hypertension I10 Active 4710662 3 Problem Posttraumatic stress disorder F43.10 Active 16361527 Problem Bipolar 2 disorder F31.81 Active 8 5115260 Problem Attention deficit disorder F90.0 Act shalom 446795852 Problem Lumbago with sciatica, right side M54.41 Active [id number] Problem Lumbago with sciatica, left side M54.42 Active 909637875 Problem Urinary hesitancy R39.11 Active 59 95494 Problem Gastroesophageal reflux disease without esophagitis K21.9 Active 008898842 Problem Other chronic pain G89.29 Active 8 9383953 Problem Chronic post-traumatic stress disorder (PTSD) F43. 12 Active 592583495 ALLERGIES Substance Reaction Event Type Date Status Codeine Sulfate disoriented Drug Allergy Jul, Active ENCOUNTERS Encounter Location Date Diagnosis [facility] [address] [facility] [id number] [address] [place] [id number] Dec, [facility] [address] [facility] [id number] [address] [place] [id number] Dec, Upper respiratory tract infe ction, unspecified type J06.9 [facility] [address] [facility] [id number] [address] [place] [id number] October, [facility] [address] [facility] [id number] [address] [place] [id number] Oct, Bipolar 2 disorder F31.81 ; Attention deficit disorder F90.0 ; Social anxiety disorder F40.10 and Chronic post-traumatic stress disorder (PTSD) F43.12 [facility] [address] [id number] [address] [place] [phone] Oct, [facility] [address] [id number] [address] [place] [id number] Oct, [facility] [address] [facility] [id number] [address] [place] [phone] Aug, [facility] [address] [id number] [address] [place] [phone] Aug, [facility] [address] [facility] [id number] [address] [place] [phone] Jul, Strain of lumbar region, ini tial encounter S39.012A [facility] [address] [facility] [id number] [address] [place] [id number] Jul, Lumbago with sciatica, left side M54.42 and Lumbago with sciatica, right side M54.41 [facility] [address] [id number] [address] [place] [id number] Jul, Low back pain M54.5 and Othe r chronic pain G89.29 [facility] [address] [facility] [id number] [address] [place] [id number] Jul, [facility] [address] [facility] [id number] [address] [place] [id number] Jul, Bipolar 2 disorder F31.81 ; Attention deficit disorder F90.0 and Social anxiety disorder F40.10 [facility] [address] [facility] [id number] [address] [place] [phone] Jun, [facility] [address] [facility] [id number] [address] [place] [phone] May, [facility] [address] [facility] [id number] [address] [place] [phone] Apr, Bipolar 2 disorder F31.81 ; Attention deficit disorder F90.0 ; Social anxiety disorder F40.10 and Chronic post-traumatic stress disorder (PTSD) F43.12 [facility] [address] [facility] [id number] [address] [place] [id number] 13 Apr, 2017 [facility] [address] [facility] [id number] [address] [place] [id number] Apr, Hyperlipidemia E78.5 [facility] [address] [facility] [id number] [address] [place] [phone] 27 Mar, 2017 Encounter for immunization Z 23 and Tinea cruris B35.6 [facility] [address] [facility] [id number] [address] [place] [phone] Mar, [facility] [address] [facility] [id number] [address] [place] [phone] Jan, [facility] [address] [place] [id number] [address] [place] [phone] Dec, [facility] [address] [facility] [id number] [address] [place] [phone] Dec, [facility] [address] [place] [id number] [address] [place] [id number] Dec, Bipolar 2 disorder F31.81 ; Social anxiety disorder F40.10 and Attention deficit disorder F90.0 [facility] [address] [facility] [id number] [address] [place] [phone] Dec, [facility] [address] [facility] [id number] [address] [place] [phone] Dec, Hypertension I10 [facility] [address] [facility] [id number] [address] [place] [phone] October, [facility] [address] [facility] [id number] [address] [place] [phone] Oct, [facility] [address] [facility] [id number] [address] [place] [phone] Oct, Nasal congestion R09.81 [facility] [address] [id number] [address] [place] [id number] Oct, Social anxiety disorder F40. 10 ; Bipolar 2 disorder F31.81 and Attention deficit disorder F90.0 [facility] [address] [id number] [address] [place] [phone] Aug, [facility] [address] [id number] [address] [place] [phone] Aug, [facility] [address] [id number] [address] [place] [phone] Jul, Nasal congestion R09.81 [facility] [address] [id number] [address] [place] [phone] Jul, [facility] [address] [facility] [id number] [address] [place] [phone] Jun, Bipolar 2 disorder F31.81 ; Attention deficit disorder F90.0 ; Social anxiety disorder F40.10 and Chronic post-traumatic stress disorder (PTSD) F43.12 [facility] [address] [id number] [address] [place] [phone] Jun, [facility] [address] [facility] [id number] [address] [place] [phone] May, [facility] [address] [facility] [id number] [address] [place] [id number] 14 Apr, 2016 Attention deficit disorder F 90.0 [facility] [address] [facility] [id number] [address] [place] [phone] 10 Apr, 2016 Urinary hesitancy R39.11 ; H yperlipidemia E78.5 and Encounter for immunization Z23 [facility] [address] [facility] [id number] [address] [place] [phone] 03 Apr, 2016 [facility] [address] [facility] [id number] [address] [place] [phone] 16 Mar, 2016 [facility] [address] [facility] [id number] [address] [place] [phone] Jan, [facility] [address] [facility] [id number] [address] [place] [phone] Dec, [facility] [address] [facility] [id number] [address] [place] [id number] Dec, [facility] [address] [facility] [id number] [address] [place] [id number] Dec, Bipolar 2 disorder F31.81 ; Attention deficit disorder F90.0 ; Posttraumatic stress disorder F43.10 and Social anxiety disorder F40.10 [facility] [address] [facility] [id number] [address] [place] [phone] Dec, Scabies exposure Z20.89 and Scabies B86 [facility] [address] [place] [id number] [address] [place] [phone] Dec, [facility] [address] [phone] Dec, Hypertension I10 and Gastroe sophageal reflux disease without esophagitis K21.9 [facility] [address] [phone] October, [facility] [address] [place] [id number] [address] [place] [phone] October, [facility] [address] [place] [id number] [address] [place] [phone] Oct, Bipolar 2 disorder F31.81 ; Posttraumatic stress disorder F43.10 ; Attention deficit disorder F90.0 and Social anxiety disorder F40.10 [facility] [address] [facility] [id number] [address] [place] [phone] Oct, [facility] [address] [place] [id number] [place] [phone] Oct, Hypertension I10 and Nasal c ongestion R09.81 [facility] [address] [place] [id number] [address] [place] [phone] Aug, [facility] [address] [facility] [id number] [address] [place] [phone] Aug, [facility] [address] [facility] [id number] [address] [place] [phone] Aug, [facility] [address] [facility] [id number] [address] [place] [phone] Aug, [facility] [address] [facility] [id number] [address] [place] [phone] Aug, [facility] [address] [facility] [id number] [address] [place] [phone] Aug, Hypertension I10 and Tremor R25.1 [facility] [address] [facility] [id number] [address] [place] [phone] Aug, Bipolar 2 disorder F31.81 ; Posttraumatic stress disorder F43.10 ; Attention deficit disorder F90.0 and Social anxiety disorder F40.10 [facility] [address] [facility] [id number] [address] [place] [id number] Jul, [facility] [address] [facility] [id number] [address] [place] [id number] Jul, Hyperlipidemia E78.5 [facility] [address] [place] [id number] [address] [place] [id number] Jul, Hypertension I10 and Hyperli pidemia E78.5 [facility] [address] [facility] [id number] [address] [place] [id number] Jun, Bipolar 2 disorder F31.81 ; Posttraumatic stress disorder F43.10 ; Attention deficit disorder F90.0 and Social anxiety disorder F40.10 [facility] [address] [facility] [id number] [address] [place] [phone] May, [facility] [address] [facility] [id number] [address] [place] [phone] May, [facility] [address] [facility] [id number] [address] [place] [phone] Apr, Bipolar 2 disorder F31.81 ; Posttraumatic stress disorder F43.10 ; Attention deficit disorder F90.0 and Social phobia F40.10 [facility] [address] [facility] [id number] [address] [place] [phone] Apr, Bipolar 2 disorder F31.81 ; Posttraumatic stress disorder F43.10 and Attention deficit disorder F90.0 [facility] [address] [id number] [address] [place] [phone] Apr, [facility] [address] [facility] [id number] [address] [place] [phone] Apr, [facility] [address] [facility] [id number] [address] [place] [id number] Apr, [facility] [address] [facility] [id number] [address] [place] [phone] Mar, [facility] [address] [facility] [id number] [address] [place] [phone] Mar, [facility] [address] [facility] [id number] [address] [place] [id number] Jan, [facility] [address] [facility] [id number] [address] [place] [phone] Jan, [facility] [address] [facility] [id number] [address] [place] [id number] Jan, Bipolar II disorder 296.89 ; Posttraumatic stress disorder 309.81 ; Social phobia 300.23 and Attention deficit disorder of childhood without mention of hyperactivity 314.00 [facility] [address] [facility] [id number] [address] [place] [phone] Jan, Other and unspecified bipola r disorders 296.89 ; Posttraumatic stress disorder 309.81 and Attention deficit disorder of childhood without mention of hyperactivity 314.00 [facility] [address] [facility] [id number] [address] [place] [phone] Jan, [facility] [address] [facility] [id number] [address] [place] [id number] Dec, Other and unspecified bipola r disorders 296.89 ; Posttraumatic stress disorder 309.81 and Attention deficit disorder of childhood without mention of hyperactivity 314.00 [facility] [address] [facility] [id number] [address] [place] [id number] Dec, Migraines 346.90 [facility] [address] [facility] [id number] [address] [place] [phone] Dec, Other and unspecified bipola r disorders 296.89 ; Posttraumatic stress disorder 309.81 and Attention deficit disorder of childhood without mention of hyperactivity 314.00 [facility] [address] [facility] [id number] [address] [place] [phone] Dec, [facility] [address] [facility] [id number] [address] [place] [phone] Dec, Bipolar II disorder 296.89 ; Social phobia 300.23 ; Posttraumatic stress disorder 309.81 and Attention deficit disorder of childhood without mention of hyperactivity 314.00 [facility] [address] [facility] [id number] [address] [place] [id number] Dec, Other and unspecified bipola r disorders 296.89 ; Posttraumatic stress disorder 309.81 and Attention deficit disorder of childhood without mention of hyperactivity 314.00 [facility] [address] [facility] [id number] [address] [place] [id number] October, Other and unspecified bipola r disorders 296.89 ; Posttraumatic stress disorder 309.81 and Attention deficit disorder of childhood without mention of hyperactivity 314.00 [facility] [address] [facility] [id number] [address] [place] [id number] October, [facility] [address] [facility] [id number] [address] [place] [id number] October, [facility] [address] [facility] [id number] [address] [place] [phone] October, [facility] [address] [facility] [id number] [address] [place] [phone] October, [facility] [address] [id number] [address] [place] [phone] October, Attention deficit disorder o f childhood without mention of hyperactivity 314.00 ; Posttraumatic stress disorder 309.81 ; Social phobia 300.23 and Other and unspecified bipolar disorders 296.89 [facility] [address] [id number] [address] [place] [phone] Oct, [facility] [address] [id number] [address] [place] [phone] Oct, [facility] [address] [id number] [address] [place] [phone] Aug, [facility] [address] [id number] [address] [place] [phone] Aug, [facility] [address] [id number] [address] [place] [phone] Aug, [facility] [address] [id number] [address] [place] [phone] Aug, [facility] [address] [id number] [address] [place] [phone] Aug, [facility] [address] [id number] [address] [place] [phone] Aug, [facility] [address] [id number] [address] [place] [phone] Aug, [facility] [address] [id number] [address] [place] [phone] Aug, [facility] [address] [id number] [address] [place] [phone] Aug, [facility] [address] [id number] [address] [place] [phone] Aug, [facility] [address] [id number] [address] [place] [phone] Aug, [facility] [address] [id number] [facility] [phone] 13 Aug, 2014 [facility] [address] [id number] [address] [place] [address], [place] [id number] 12 Aug, 2014 [facility] [address] [id number] [address] [place] [address], [place] [phone] Aug, [facility] [address] [id number] [address] [place] [address], [place] [id number] Aug, [facility] [address] [id number] [address] [place] [address], [place] [id number] Aug, [facility] [address] [id number] [address] [place] [address], [place] [phone] Aug, [facility] [address] [id number] [address] [place] [address], [place] [id number] Aug, [facility] [address] [id number] [address] [place] [address], [place] [id number] Aug, [facility] [address] [id number] [address] [place] [address], [place] [id number] Aug, [facility] [address] [id number] [address] [place] [address], [place] [phone] Aug, [facility] [address] [id number] [address] [place] [address], [place] [id number] Aug, [facility] [address] [id number] [address] [place] [address], [place] [id number] Aug, [facility] [address] [id number] [address] [place] [address], [place] [id number] Aug, [facility] [address] [id number] [address] [place] [address], [place] [id number] Aug, [facility] [address] [id number] [address] [place] [address], [place] [id number] Aug, [facility] [address] [id number] [address] [place] [address], [place] [id number] Aug, [facility] [address] [id number] [address] [place] [address], [place] [id number] Aug, [facility] [address] [id number] [address] [place] [address], [place] [id number] Aug, [facility] [address] [id number] [address] [place] [address], [place] [id number] Aug, [facility] [address] [id number] [address] [place] [address], [place] [phone] Jul, [facility] [address] [id number] [address] [place] [address], [place] [id number] Jul, [facility] [address] [id number] [address] [place] [address], [place] [id number] Jul, [facility] [address] [id number] [address] [place] [address], [place] [id number] Jul, [facility] [address] [id number] [address] [place] [address], [place] [id number] Jul, [facility] [address] [id number] [address] [place] [address], [place] [id number] Jul, [facility] [address] [id number] [address] [place] [address], [place] [id number] Jul, [facility] [address] [id number] [address] [place] [address], [place] [id number] Jul, [facility] [address] [id number] [address] [place] [address], [place] [id number] Jun, [facility] [address] [id number] [address] [place] [address], [place] [id number] Jun, [facility] [address] [id number] [address] [place] [address], [place] [id number] Jun, [facility] [address] [id number] [address] [place] [address], [place] [id number] Jun, [facility] [address] [id number] [address] [place] [phone] May, [facility] [address] [id number] [address] [place] [id number] May, [facility] [address] [id number] [address] [place] [phone] May, [facility] [address] [id number] [address] [place] [phone] May, [facility] [address] [id number] [address] [place] [phone] May, [facility] [address] [id number] [address] [place] [phone] Apr, [facility] [address] [id number] [address] [place] [id number] Apr, IMMUNIZATIONS No Known Immunizations SOCIAL HISTORY Never Assessed REASON FOR VISIT Back Pain- pt states he had back pain a few days ago but today bent over and the pain is awful, his legs are now weak and his soles of feet are numb- Alejandrina Noriega RN PLAN OF CARE Activity Details Follow Up keep scheduled appt with PCP tomorrow Reason: VITAL SIGNS Height 64 in 2017-07-12 Heart Rate 90 bpm 2017-07-12 Respiratory Rate 22 2017-07-12 Blood pressure systolic 142 mmHg 2017-07-12 Blood pressure diastolic 88 mmHg 2017-07-12 MEDICATIONS Medication Instructions Dosage Frequency Start Date End Date Duration S lion Lisinopril 20 MG Orally Once a day 1 tablet 24h 30 Active Vitamin C 500 mg 1 tablet by Oral route 1 time per day 3 0 Apr, 2014 Active Colace 100 mg 1 capsule by Oral route 2 times per day PRN Apr, Active Omeprazole 20 MG TAKE ONE CAPSULE BY MOUTH ONCE DAILY 30 Active Baclofen 10 MG Orally Once a day 1 tablet with food or milk 24h Jul, Jul, 5 days Active Lamotrigine 200 mg Orally in the evening for depression 1 tablet Active Aspirin 325 mg 1 tablet by Oral route 1 time per day Apr, Active Vitamin D3 5000 UNIT Orally Once a day 1 capsule 24h 30 Apr, 2014 Active Atorvastatin Calcium 20 MG Orally Once a day 1 tablet 24h 30 Not-Taking Hydrocodone-Acetaminophen 5-325 MG Orally every 6 hrs 1 tablet as n eeded 6h Jul, Jul, 4 days Active Multivitamin 1 tablet by Oral route 1 time per day 30 Oc , 2013 Active PredniSONE 50 MG Orally Once a day 1 tablet 24h Jul, Jul, 5 days Active Vyvanse 30 MG Orally Once a day for ADHD 1 capsule in the morning Jun, 28 days Active RESULTS Name Result Date Reference Range Xray : Spine, Lumbar 2-3 views (IN HOUSE) 2017-0 1-10 PROCEDURES Procedure Date Ordered Result Body Site X-RAY EXAM OF LOWER SPINE Jul 12, 2017 INSTRUCTIONS MEDICATIONS ADMINISTERED No Known Medications MEDICAL (GENERAL) HISTORY Type Description Date Medical History Hypertension Medical History GERD Medical History Bipolar Surgical History Hernia right ingual Surgical History Colonoscopy october 2014 Hospitalization History surgeries Hospitalization History ER for dehydration and vomitting 10/04/15
--- OUTSIDE RECORDS SUMMARY | 2019-11-11 19:13 | XMS REPORT ---
Author Author [place] Organization [facility] Address [address] [place] [address] Care Team Providers Care Cuff Slitter Name Role Phone FLEX GUILLERMO Unavailable PROBLEMS Type Condition ICD9-CM Code ANJ23-SG Code Onset Dates Condition S tatus SNOMED Code Problem Social anxiety disorder F40.10 Active 34002528 Problem Hyperlipidemia E78.5 Active 13768 004 Problem Hypertension I10 Active 4359736 3 Problem Posttraumatic stress disorder F43.10 Active 53198592 Problem Bipolar 2 disorder F31.81 Active 8 7589423 Problem Attention deficit disorder F90.0 Act shalom 296386161 Problem Lumbago with sciatica, right side M54.41 Active [id number] Problem Lumbago with sciatica, left side M54.42 Active 754070978 Problem Urinary hesitancy R39.11 Active 59 66910 Problem Gastroesophageal reflux disease without esophagitis K21.9 Active 033437513 Problem Other chronic pain G89.29 Active 8 9055351 Problem Chronic post-traumatic stress disorder (PTSD) F43. 12 Active [id number] ALLERGIES No Information ENCOUNTERS Encounter Location Date Diagnosis [facility] [address] [facility] [id number] [address] [place] [phone] Dec, [facility] [address] [facility] [id number] [address] [place] [phone] Dec, [facility] [address] [facility] [id number] [address] [place] [phone] Dec, Upper respiratory tract infe ction, unspecified type J06.9 [facility] [address] [facility] [id number] [address] [place] [phone] October, [facility] [address] [facility] [id number] [address] [place] [phone] Oct, Bipolar 2 disorder F31.81 ; Attention deficit disorder F90.0 ; Social anxiety disorder F40.10 and Chronic post-traumatic stress disorder (PTSD) F43.12 [facility] [address] [id number] [address] [place] [phone] Oct, [facility] [address] [facility] [id number] [address] [place] [phone] Oct, [facility] [address] [facility] [id number] [address] [place] [phone] Aug, [facility] [address] [facility] [id number] [address] [place] [phone] Aug, [facility] [address] [facility] [id number] [address] [place] [phone] Jul, Strain of lumbar region, ini tial encounter S39.012A [facility] [address] [facility] [id number] [address] [place] [phone] Jul, Lumbago with sciatica, left side M54.42 and Lumbago with sciatica, right side M54.41 [facility] [address] [facility] [id number] [address] [place] [phone] Jul, Low back pain M54.5 and Othe r chronic pain G89.29 [facility] [address] [facility] [id number] [address] [place] [phone] Jul, [facility] [address] [facility] [id number] [address] [place] [phone] Jul, Bipolar 2 disorder F31.81 ; Attention deficit disorder F90.0 and Social anxiety disorder F40.10 [facility] [address] [facility] [id number] [address] [place] [phone] Jun, [facility] [address] [facility] [id number] [address] [place] [phone] May, [facility] [address] [facility] [id number] [address] [place] [phone] Apr, Bipolar 2 disorder F31.81 ; Attention deficit disorder F90.0 ; Social anxiety disorder F40.10 and Chronic post-traumatic stress disorder (PTSD) F43.12 [facility] [address] [facility] [id number] [address] [place] [phone] Apr, [facility] [address] [facility] [id number] [address] [place] [phone] Apr, Hyperlipidemia E78.5 [facility] [address] [facility] [id number] [address] [place] [phone] 27 Mar, 2017 Encounter for immunization Z 23 and Tinea cruris B35.6 [facility] [address] [facility] [id number] [place] [phone] Mar, [facility] [address] [place] [id number] [address] [place] [id number] Jan, [facility] [address] [facility] [id number] [address] [place] [phone] Dec, [facility] [address] [facility] [id number] [address] [place] [phone] Dec, [facility] [address] [place] [id number] [place] [phone] Dec, Bipolar 2 disorder F31.81 ; Social anxiety disorder F40.10 and Attention deficit disorder F90.0 [facility] [address] [facility] [id number] [address] [place] [phone] Dec, [facility] [address] [facility] [id number] [address] [place] [phone] Dec, Hypertension I10 [facility] [address] [facility] [id number] [address] [place] [phone] October, [facility] [address] [facility] [id number] [address] [place] [phone] Oct, [facility] [address] [place] [id number] [address] [place] [phone] Oct, Nasal congestion R09.81 [facility] [address] [facility] [id number] [address] [place] [phone] Oct, Social anxiety disorder F40. 10 ; Bipolar 2 disorder F31.81 and Attention deficit disorder F90.0 [facility] [address] [id number] [address] [place] [phone] Aug, [facility] [address] [facility] [id number] [address] [place] [phone] Aug, [facility] [address] [facility] [id number] [address] [place] [phone] Jul, Nasal congestion R09.81 [facility] [address] [facility] [id number] [address] [place] [phone] Jul, [facility] [address] [facility] [id number] [address] [place] [phone] Jun, Bipolar 2 disorder F31.81 ; Attention deficit disorder F90.0 ; Social anxiety disorder F40.10 and Chronic post-traumatic stress disorder (PTSD) F43.12 [facility] [address] [place] [id number] [address] [place] [phone] Jun, [facility] [address] [place] [id number] [address] [place] [phone] May, [facility] [address] [place] [id number] [address] [place] [phone] 14 Apr, 2016 Attention deficit disorder F 90.0 [facility] [address] [facility] [id number] [address] [place] [phone] 10 Apr, 2016 Urinary hesitancy R39.11 ; H yperlipidemia E78.5 and Encounter for immunization Z23 [facility] [address] [facility] [id number] [address] [place] [phone] 03 Apr, 2016 [facility] [address] [facility] [id number] [address] [place] [phone] 16 Mar, 2016 [facility] [address] [place] [id number] [address] [place] [phone] Jan, [facility] [address] [facility] [id number] [address] [place] [phone] Dec, [facility] [address] [facility] [id number] [address] [place] [phone] Dec, [facility] [address] [place] [id number] [address] [place] [phone] Dec, Bipolar 2 disorder F31.81 ; Attention deficit disorder F90.0 ; Posttraumatic stress disorder F43.10 and Social anxiety disorder F40.10 [facility] [address] [facility] [id number] [address] [place] [phone] Dec, Scabies exposure Z20.89 and Scabies B86 [facility] [address] [phone] Dec, [facility] [address] [address] Dec, Hypertension I10 and Gastroe sophageal reflux disease without esophagitis K21.9 [facility] [address] [phone] October, [facility] [address] [address] October, [facility] [address] [phone] Oct, Bipolar 2 disorder F31.81 ; Posttraumatic stress disorder F43.10 ; Attention deficit disorder F90.0 and Social anxiety disorder F40.10 [facility] [address] [address] Oct, [facility] [address] [id number] [place] [phone] Oct, Hypertension I10 and Nasal c ongestion R09.81 [facility] [address] [place] [id number] [address] [place] [phone] Aug, [facility] [address] [facility] [id number] [address] [place] [phone] Aug, [facility] [address] [facility] [id number] [address] [place] [phone] Aug, [facility] [address] [facility] [id number] [address] [place] [phone] Aug, [facility] [address] [id number] [place] [phone] Aug, [facility] [address] [place] [id number] [place] [phone] Aug, Hypertension I10 and Tremor R25.1 [facility] [address] [phone] Aug, Bipolar 2 disorder F31.81 ; Posttraumatic stress disorder F43.10 ; Attention deficit disorder F90.0 and Social anxiety disorder F40.10 [facility] [id number] [place] [phone] Jul, [facility] [address] [phone] Jul, Hyperlipidemia E78.5 [facility] [address] [address] Jul, Hypertension I10 and Hyperli pidemia E78.5 [facility] [address] [facility] [id number] [address] [place] [phone] Jun, Bipolar 2 disorder F31.81 ; Posttraumatic stress disorder F43.10 ; Attention deficit disorder F90.0 and Social anxiety disorder F40.10 [facility] [address] [facility] [id number] [address] [place] [phone] May, [facility] [address] [place] [id number] [address] [place] [phone] May, [facility] [address] [place] [id number] [address] [place] [phone] Apr, Bipolar 2 disorder F31.81 ; Posttraumatic stress disorder F43.10 ; Attention deficit disorder F90.0 and Social phobia F40.10 [facility] [address] [facility] [id number] [address] [place] [phone] Apr, Bipolar 2 disorder F31.81 ; Posttraumatic stress disorder F43.10 and Attention deficit disorder F90.0 [facility] [address] [facility] [id number] [address] [place] [phone] Apr, [facility] [address] [id number] [address] [place] [phone] Apr, [facility] [address] [facility] [id number] [address] [place] [phone] Apr, [facility] [address] [facility] [id number] [address] [place] [phone] Mar, [facility] [address] [facility] [id number] [address] [place] [phone] Mar, [facility] [address] [facility] [id number] [address] [place] [phone] Jan, [facility] [address] [facility] [id number] [address] [place] [phone] Jan, [facility] [address] [facility] [id number] [address] [place] [phone] Jan, Bipolar II disorder 296.89 ; Posttraumatic stress disorder 309.81 ; Social phobia 300.23 and Attention deficit disorder of childhood without mention of hyperactivity 314.00 [facility] [address] [facility] [id number] [address] [place] [phone] Jan, Other and unspecified bipola r disorders 296.89 ; Posttraumatic stress disorder 309.81 and Attention deficit disorder of childhood without mention of hyperactivity 314.00 [facility] [address] [facility] [id number] [address] [place] [phone] Jan, [facility] [address] [id number] [address] [place] [phone] Dec, Other and unspecified bipola r disorders 296.89 ; Posttraumatic stress disorder 309.81 and Attention deficit disorder of childhood without mention of hyperactivity 314.00 [facility] [address] [id number] [address] [place] [phone] Dec, Migraines 346.90 [facility] [address] [id number] [address] [place] [phone] Dec, Other and unspecified bipola r disorders 296.89 ; Posttraumatic stress disorder 309.81 and Attention deficit disorder of childhood without mention of hyperactivity 314.00 [facility] [address] [id number] [address] [place] [phone] Dec, [facility] [address] [facility] [id number] [address] [place] [phone] Dec, Bipolar II disorder 296.89 ; Social phobia 300.23 ; Posttraumatic stress disorder 309.81 and Attention deficit disorder of childhood without mention of hyperactivity 314.00 [facility] [address] [facility] [id number] [address] [place] [phone] Dec, Other and unspecified bipola r disorders 296.89 ; Posttraumatic stress disorder 309.81 and Attention deficit disorder of childhood without mention of hyperactivity 314.00 [facility] [address] [facility] [id number] [address] [place] [phone] October, Other and unspecified bipola r disorders 296.89 ; Posttraumatic stress disorder 309.81 and Attention deficit disorder of childhood without mention of hyperactivity 314.00 [facility] [address] [id number] [address] [place] [phone] October, [facility] [address] [id number] [address] [place] [phone] October, [facility] [address] [id number] [address] [place] [phone] October, [facility] [address] [id number] [address] [place] [phone] October, [facility] [address] [id number] [address] [place] [phone] October, Attention deficit disorder o f childhood without mention of hyperactivity 314.00 ; Posttraumatic stress disorder 309.81 ; Social phobia 300.23 and Other and unspecified bipolar disorders 296.89 [facility] [address] [id number] [address] [place] [phone] Oct, [facility] [address] [id number] [address] [place] [phone] Oct, [facility] [address] [id number] [address] [place] [phone] Aug, [facility] [address] [id number] [address] [place] [phone] Aug, [facility] [address] [id number] [address] [place] [phone] Aug, [facility] [address] [id number] [address] [place] [phone] Aug, [facility] [address] [id number] [address] [place] [phone] Aug, [facility] [address] [id number] [address] [place] [phone] Aug, [facility] [address] [id number] [address] [place] [phone] Aug, [facility] [address] [id number] [address] [place] [phone] Aug, [facility] [address] [id number] [address] [place] [phone] Aug, [facility] [address] [id number] [address] [place] [phone] Aug, [facility] [address] [id number] [address] [place] [phone] Aug, [facility] [address] [id number] [facility] [place] [id number] 13 Aug, 2014 [facility] [address] [id number] [address] [place] [address], [place] [id number] 12 Aug, 2014 [facility] [address] [id number] [address] [place] [address], [place] [id number] Aug, [facility] [address] [id number] [address] [place] [address], [place] [id number] Aug, [facility] [address] [id number] [address] [place] [address], [place] [id number] Aug, [facility] [address] [id number] [address] [place] [address], [place] [id number] Aug, [facility] [address] [id number] [address] [place] [address], [place] [id number] Aug, [facility] [address] [id number] [address] [place] [address], [place] [id number] Aug, [facility] [address] [id number] [address] [place] [address], [place] [id number] Aug, [facility] [address] [id number] [address] [place] [address], [place] [id number] Aug, [facility] [address] [id number] [address] [place] [address], [place] [id number] Aug, [facility] [address] [id number] [address] [place] [address], [place] [id number] Aug, [facility] [address] [id number] [address] [place] [address], [place] [id number] Aug, [facility] [address] [id number] [address] [place] [address], [place] [id number] Aug, [facility] [address] [id number] [address] [place] [address], [place] [id number] Aug, [facility] [address] [id number] [address] [place] [address], [place] [id number] Aug, [facility] [address] [id number] [address] [place] [address], [place] [id number] Aug, [facility] [address] [id number] [address] [place] [address], [place] [id number] Aug, [facility] [address] [id number] [address] [place] [address], [place] [id number] Aug, [facility] [address] [id number] [address] [place] [address], [place] [id number] Jul, [facility] [address] [id number] [address] [place] [address], [place] [id number] Jul, [facility] [address] [id number] [address] [place] [address], [place] [id number] Jul, [facility] [address] [id number] [address] [place] [address], [place] [id number] Jul, [facility] [address] [id number] [address] [place] [address], [place] [id number] Jul, [facility] [address] [id number] [address] [place] [address], [place] [id number] Jul, [facility] [address] [id number] [address] [place] [address], [place] [id number] Jul, [facility] [address] [id number] [address] [place] [address], [place] [id number] Jul, [facility] [address] [id number] [address] [place] [address], [place] [id number] Jun, [facility] [address] [id number] [address] [place] [address], [place] [id number] Jun, [facility] [address] [id number] [address] [place] [address], [place] [id number] Jun, [facility] [address] [id number] [address] [place] [address], [place] [id number] Jun, [facility] [address] [id number] [address] [place] [phone] May, [facility] [address] [id number] [address] [place] [phone] May, [facility] [address] [id number] [address] [place] [phone] May, [facility] [address] [facility] [id number] [address] [place] [phone] May, [facility] [address] [facility] [id number] [address] [place] [id number] May, [facility] [address] [facility] [id number] [address] [place] [phone] Apr, [facility] [address] [facility] [id number] [address] [place] [phone] Apr, IMMUNIZATIONS No Known Immunizations SOCIAL HISTORY Never Assessed REASON FOR VISIT vyvanse 09/07/2017 PLAN OF CARE VITAL SIGNS MEDICATIONS Medication Instructions Dosage Frequency Start Date End Date Duration S tatus Vyvanse 30 MG Orally Once a day for ADHD 1 capsule in the morning Aug, 28 days Active RESULTS No Results PROCEDURES No Known procedures INSTRUCTIONS MEDICATIONS ADMINISTERED No Known Medications MEDICAL (GENERAL) HISTORY Type Description Date Medical History Hypertension Medical History GERD Medical History Bipolar Surgical History Hernia right ingual Surgical History Colonoscopy october 2014 Hospitalization History surgeries Hospitalization History ER for dehydration and vomitting 10/04/15
--- OUTSIDE RECORDS SUMMARY | 2019-11-11 19:13 | XMS REPORT ---
Author Author [place] [facility] e[employer] Address Unknown Phone Unavailable Care Team Providers Care End Stapler Name Role Phone F[place] J[facility] CP Unavailable Allergies No Known Allergies Problems Problem Type Condition ICD-9 Code Onset Dates Condition Statu s Problem Social phobia 300.23 Active Problem Anal fissure 565.0 Active Problem Other and unspecified bipolar disorders 296.89 Active Problem Attention deficit disorder o f childhood without mention of hyperactivity 314.00 Active Problem Posttraumatic stress disorder 309.81 Active Problem Bipolar II disorder 296.89 Active Problem Other malaise and fatigue 780.79 Ac tive Problem Migraines 346.90 Active Problem Reflux esophagitis 530.11 Active Problem Blood in stool 578.1 Active Problem Disturbance of skin sensation 782.0 Active Problem Other and unspecified hyperlipidemia 272.4 Active Medications Medication Code System Code Instructions Start Date End Date Status Dosage atorvastatin NDC 0 20 mg Once a day May 01, 2014 take 1 tablet by Oral route 1 time per day QHS; Avoid grapefruit juice Results No Known Results Summary Purpose eClinicalWorks Submission
--- OUTSIDE RECORDS SUMMARY | 2019-11-11 19:13 | XMS REPORT ---
Author Author [place] [facility] Address [address] [place] [address] Care Team Providers Care Director Of Partnerships Name Role Phone FLEX GUILLERMO Unavailable PROBLEMS Type Condition ICD9-CM Code [id number] Code Onset Dates Condition S tatus SNOMED Code Problem Social anxiety disorder F40.10 Active 47520401 Problem Hyperlipidemia E78.5 Active 73456 004 Problem Hypertension I10 Active 4104511 3 Problem Posttraumatic stress disorder F43.10 Active 85428913 Problem Bipolar 2 disorder F31.81 Active 8 8576580 Problem Attention deficit disorder F90.0 Act shalom 863611981 Problem Lumbago with sciatica, right side M54.41 Active 043309228458205 Problem Lumbago with sciatica, left side M54.42 Active 557296500 Problem Urinary hesitancy R39.11 Active 59 45064 Problem Gastroesophageal reflux disease without esophagitis K21.9 Active 496239700 Problem Other chronic pain G89.29 Active 8 5787473 Problem Chronic post-traumatic stress disorder (PTSD) F43. 12 Active [id number] ALLERGIES No Information ENCOUNTERS Encounter Location Date Diagnosis [facility], [place] [address] [facility] [id number] [address] [place] [phone] Dec, [facility] [place] [address] [facility] [id number] [address] [place] [address] Dec, [facility], [place] [address] [facility] [id number] [address] [place] [address] Dec, [facility] [address] [facility] [id number] [address] [place] [address] Dec, Upper respiratory tract infe ction, unspecified type J06.9 [facility], [place] [address] [facility] [id number] [address] [place] [address] October, [facility], [place] [address] [id number] [address] [place] [address] Oct, Bipolar 2 disorder F31.81 ; Attention deficit disorder F90.0 ; Social anxiety disorder F40.10 and Chronic post-traumatic stress disorder (PTSD) F43.12 [facility], [place] [address] [id number] [address] [place] [address] Oct, [facility] [place] [address] [id number] [address] [place] [address] Oct, [facility] [place] [address] [facility] [id number] [address] [place] [address] Aug, [facility] [place] [address] [facility] [id number] [address] [place] [address] Aug, [facility], [place] [address] [facility] [id number] [address] [place] [address] Jul, Strain of lumbar region, ini tial encounter S39.012A [facility] [address] [id number] [address] [place] [address] Jul, Lumbago with sciatica, left side M54.42 and Lumbago with sciatica, right side M54.41 [facility] [address] [facility] [id number] [address] [place] [address] Jul, Low back pain M54.5 and Othe r chronic pain G89.29 [facility] [place] [address] [id number] [address] [place] [phone] Jul, [facility], [place] [address] [facility] [id number] [address] [place] [address] Jul, Bipolar 2 disorder F31.81 ; Attention deficit disorder F90.0 and Social anxiety disorder F40.10 [facility], [place] [address] [id number] [address] [place] [phone] Jun, [facility], [place] [address] [facility] [id number] [address] [place] [phone] May, [facility], [place] [address] [facility] [id number] [address] [place] [address] Apr, Bipolar 2 disorder F31.81 ; Attention deficit disorder F90.0 ; Social anxiety disorder F40.10 and Chronic post-traumatic stress disorder (PTSD) F43.12 [facility], [place] [address] [facility] [id number] [address] [place] [phone] Apr, [facility], [place] [address] [facility] [id number] [address] [place] [address] Apr, Hyperlipidemia E78.5 [facility] [address] [facility] [id number] [address] [place] [phone] Mar, Encounter for immunization Z 23 and Tinea cruris B35.6 [facility], [place] [address] [facility] [id number] [address] [place] [address] Mar, [facility], [place] [address] [facility] [id number] [address] [place] [address] Jan, [facility], [place] [address] [facility] [id number] [address] [place] [phone] Dec, [facility], [place] [address] [facility] [id number] [address] [place] [phone] Dec, [facility], [place] [address] [facility] [id number] [address] [place] [address] Dec, Bipolar 2 disorder F31.81 ; Social anxiety disorder F40.10 and Attention deficit disorder F90.0 [facility], [place] [address] [facility] [id number] [address] [place] [phone] Dec, [facility], [place] [address] [facility] [id number] [address] [place] [phone] Dec, Hypertension I10 [facility] [place] [address] [facility] [id number] [address] [place] [address] October, [facility], [place] [address] [facility] [id number] [address] [place] [address] Oct, [facility], [place] [address] [facility] [id number] [address] [place] [address] Oct, Nasal congestion R09.81 [facility], [place] [address] [place] [id number] [address] [place] [phone] Oct, Social anxiety disorder F40. 10 ; Bipolar 2 disorder F31.81 and Attention deficit disorder F90.0 [facility], [place] [address] [place] [id number] [address] [place] [phone] Aug, [facility], [place] [address] [place] [place] [id number] [address] [place] [id number] Aug, [facility], [place] [address] [place] [id number] [place] [address] Jul, Nasal congestion R09.81 [facility], [place] [address] [place] [place] [id number] [address] [place] [address] Jul, [facility], [place] [address] [place] [place] [id number] [place] [address] Jun, Bipolar 2 disorder F31.81 ; Attention deficit disorder F90.0 ; Social anxiety disorder F40.10 and Chronic post-traumatic stress disorder (PTSD) F43.12 [facility], [place] [address] [address] Jun, [facility], [place] [address] [address] May, [facility], [place] [address] [place] [id number] [place] [address] 14 Apr, 2016 Attention deficit disorder F 90.0 [facility], [place] [address] [address] Apr, Urinary hesitancy R39.11 ; H yperlipidemia E78.5 and Encounter for immunization Z23 [facility], [place] [address] [place] [id number] [address] [place] [address] Apr, [facility], [place] [address] [place] [place] [id number] [address] [place] [phone] 16 Mar, 2016 [facility], [place] [address] [facility] [id number] [address] [place] [phone] Jan, [facility], [place] [address] [facility] [id number] [address] [place] [address] Dec, [facility], [place] [address] [facility] [id number] [address] [place] [address] Dec, [facility], [place] [address] [facility] [id number] [address] [place] [address] Dec, Bipolar 2 disorder F31.81 ; Attention deficit disorder F90.0 ; Posttraumatic stress disorder F43.10 and Social anxiety disorder F40.10 [facility] [address] [facility] [id number] [address] [place] [address] Dec, Scabies exposure Z20.89 and Scabies B86 [facility], [place] [address] [facility] [id number] [address] [place] [phone] Dec, [facility], [place] [address] [facility] [id number] [place] [phone] Dec, Hypertension I10 and Gastroe sophageal reflux disease without esophagitis K21.9 [facility], [place] [address] [facility] [id number] [address] [place] [phone] October, [facility], [place] [address] [facility] [id number] [address] [place] [address] October, [facility], [place] [address] [facility] [id number] [address] [place] [address] Oct, Bipolar 2 disorder F31.81 ; Posttraumatic stress disorder F43.10 ; Attention deficit disorder F90.0 and Social anxiety disorder F40.10 [facility], [place] [address] [facility] [id number] [address] [place] [phone] Oct, [facility], [place] [address] [place] [place] [id number] [address] [place] [address] Oct, Hypertension I10 and Nasal c ongestion R09.81 [facility], [place] [address] [place] [place] [id number] [address] [place] [address] Aug, [facility], [place] [address] [address] Aug, [facility], [place] [address] [address] Aug, [facility], [place] [address] [address] Aug, [facility], [place] [address] [address] Aug, [facility], [place] [address] [address] Aug, Hypertension I10 and Tremor R25.1 [facility], [place] [address] [address] Aug, Bipolar 2 disorder F31.81 ; Posttraumatic stress disorder F43.10 ; Attention deficit disorder F90.0 and Social anxiety disorder F40.10 [facility], [place] [address] [address] Jul, [facility], [place] [address] [address] Jul, Hyperlipidemia E78.5 [facility], [place] [address] [address] Jul, Hypertension I10 and Hyperli pidemia E78.5 [facility], [place] [address] [address] Jun, Bipolar 2 disorder F31.81 ; Posttraumatic stress disorder F43.10 ; Attention deficit disorder F90.0 and Social anxiety disorder F40.10 [facility], [place] [address] [address] May, [facility], [place] [address] [place] [id number] [address] [place] [address] May, [facility], [place] [address] [facility] [id number] [address] [place] [address] Apr, Bipolar 2 disorder F31.81 ; Posttraumatic stress disorder F43.10 ; Attention deficit disorder F90.0 and Social phobia F40.10 [facility], [place] [address] [place] [id number] [address] [place] [address] Apr, Bipolar 2 disorder F31.81 ; Posttraumatic stress disorder F43.10 and Attention deficit disorder F90.0 [facility], [place] [address] [facility] [id number] [address] [place] [phone] Apr, [facility], [place] [address] [facility] [id number] [address] [place] [address] Apr, [facility], [place] [address] [place] [id number] [address] [place] [phone] Apr, [facility], [place] [address] [facility] [id number] [address] [place] [phone] Mar, [facility], [place] [address] [place] [id number] [address] [place] [phone] Mar, [facility], [place] [address] [facility] [id number] [address] [place] [phone] Jan, [facility], [place] [address] [place] [id number] [address] [place] [phone] Jan, [facility], [place] [address] [facility] [id number] [address] [place] [address] Jan, Bipolar II disorder 296.89 ; Posttraumatic stress disorder 309.81 ; Social phobia 300.23 and Attention deficit disorder of childhood without mention of hyperactivity 314.00 [facility], [place] [address] [facility] [id number] [address] [place] [address] Jan, Other and unspecified bipola r disorders 296.89 ; Posttraumatic stress disorder 309.81 and Attention deficit disorder of childhood without mention of hyperactivity 314.00 [facility], [place] [address] [facility] [id number] [address] [place] [address] Jan, [facility] [place] [address] [facility] [id number] [address] [place] [address] Dec, Other and unspecified bipola r disorders 296.89 ; Posttraumatic stress disorder 309.81 and Attention deficit disorder of childhood without mention of hyperactivity 314.00 [facility] [place] [address] [facility] [id number] [address] [place] [address] Dec, Migraines 346.90 [facility], [place] [address] [facility] [id number] [address] [place] [address] Dec, Other and unspecified bipola r disorders 296.89 ; Posttraumatic stress disorder 309.81 and Attention deficit disorder of childhood without mention of hyperactivity 314.00 [facility], [place] [address] [facility] [id number] [address] [place] [address] Dec, [facility], [place] [address] [facility] [id number] [address] [place] [address] Dec, Bipolar II disorder 296.89 ; Social phobia 300.23 ; Posttraumatic stress disorder 309.81 and Attention deficit disorder of childhood without mention of hyperactivity 314.00 [facility] [place] [address] [facility] [id number] [address] [place] [address] Dec, Other and unspecified bipola r disorders 296.89 ; Posttraumatic stress disorder 309.81 and Attention deficit disorder of childhood without mention of hyperactivity 314.00 [facility] [place] [address] [facility] [id number] [address] [place] [address] October, Other and unspecified bipola r disorders 296.89 ; Posttraumatic stress disorder 309.81 and Attention deficit disorder of childhood without mention of hyperactivity 314.00 [facility] [place] [address] [facility] [id number] [address] [place] [address] October, [facility] [place] [address] [facility] [id number] [address] [place] [phone] October, [facility] [place] [address] [facility] [id number] [address] [place] [address] October, [facility] [place] [address] [id number] [address] [place] [phone] October, [facility] [place] [address] [id number] [address] [place] [address] October, Attention deficit disorder o f childhood without mention of hyperactivity 314.00 ; Posttraumatic stress disorder 309.81 ; Social phobia 300.23 and Other and unspecified bipolar disorders 296.89 [facility] [place] [address] [id number] [address] [place] [address] Oct, [facility], [place] [address] [id number] [address] [place] [phone] Oct, [facility] [address] [id number] [address] [place] [phone] Aug, [facility] [address] [id number] [address] [place] [phone] Aug, [facility] [address] [id number] [address] [place] [phone] Aug, [facility] [address] [id number] [address] [place] [phone] Aug, [facility] [address] [id number] [address] [place] [phone] Aug, [facility] [address] [id number] [address] [place] [address] Aug, [facility] [address] [id number] [address] [place] [phone] Aug, [facility] [address] [id number] [address] [place] [phone] Aug, [facility] [address] [id number] [address] [place] [phone] Aug, [facility] [address] [id number] [address] [place] [phone] Aug, [facility] [address] [id number] [facility] [place] [address] 13 Aug, 2014 [facility] [address] [id number] [address] [place] [address], [place] [address] 13 Aug, 2014 [facility] [address] [id number] [address] [place] [address], [place] [address] 12 Aug, 2014 [facility] [address] [id number] [address] [place] [address], [place] [address] Aug, [facility] [address] [id number] [address] [place] [address], [place] [address] Aug, [facility] [address] [id number] [address] [place] [address], [place] [address] Aug, [facility] [address] [id number] [address] [place] [address], [place] [address] Aug, [facility] [address] [id number] [address] [place] [address], [place] [address] Aug, [facility] [address] [id number] [address] [place] [address], [place] [address] Aug, [facility] [address] [id number] [address] [place] [address], [place] [address] Aug, [facility] [address] [id number] [address] [place] [address], [place] [address] Aug, [facility] [address] [id number] [address] [place] [address], [place] [address] Aug, [facility] [address] [id number] [address] [place] [address], [place] [address] Aug, [facility] [address] [id number] [address] [place] [address], [place] [address] Aug, [facility] [address] [id number] [address] [place] [address], [place] [address] Aug, [facility] [address] [id number] [address] [place] [address], [place] [address] Aug, [facility] [address] [id number] [address] [place] [address], [place] [address] Aug, [facility] [address] [id number] [address] [place] [address], [place] [address] Aug, [facility] [address] [id number] [address] [place] [address], [place] [address] Aug, [facility] [address] [id number] [address] [place] [address], [place] [address] Aug, [facility] [address] [id number] [address] [place] [address], [place] [address] Jul, [facility] [address] [id number] [address] [place] [address], [place] [address] Jul, [facility] [address] [id number] [address] [place] [address], [place] [id number] Jul, [facility] [address] [id number] [address] [place] [address], [place] [address] Jul, [facility] [address] [id number] [address] [place] [address], [place] [address] Jul, [facility] [address] [id number] [address] [place] [address], [place] [address] Jul, [facility] [address] [id number] [address] [place] [address], [place] [address] Jul, [facility] [address] [id number] [address] [place] [address], [place] [address] Jul, [facility] [address] [id number] [address] [place] [address], [place] [address] Jun, [facility] [address] [id number] [address] [place] [address], [place] [address] Jun, [facility] [address] [id number] [address] [place] [address], [place] [address] Jun, [facility] [address] [id number] [address] [place] [id number] Jun, [facility] [place] [address] [id number] [address] [place] [phone] May, [facility] [place] [address] [id number] [address] [place] [phone] May, [facility] [place] [address] [id number] [address] [place] [phone] May, [facility] [place] [address] [id number] [address] [place] [id number] May, [facility] [place] [address] [id number] [address] [place] [phone] May, [facility] [place] [address] [id number] [address] [place] [phone] Apr, [facility] [place] [address] [id number] [address] [place] [id number] Apr, IMMUNIZATIONS No Known Immunizations SOCIAL HISTORY Never Assessed REASON FOR VISIT vyvanse 10/05/2017 PLAN OF CARE VITAL SIGNS MEDICATIONS Medication Instructions Dosage Frequency Start Date End Date Duration S tatus Vyvanse 30 MG Orally Once a day for ADHD 1 capsule in the morning Oct, 28 days Active RESULTS No Results PROCEDURES No Known procedures INSTRUCTIONS MEDICATIONS ADMINISTERED No Known Medications MEDICAL (GENERAL) HISTORY Type Description Date Medical History Hypertension Medical History GERD Medical History Bipolar Surgical History Hernia right ingual Surgical History Colonoscopy october 2014 Hospitalization History surgeries Hospitalization History ER for dehydration and vomitting 10/04/15
--- OUTSIDE RECORDS SUMMARY | 2019-11-11 19:13 | XMS REPORT ---
Author Author [facility] Address [address] [place] [address] Care Team Providers Care Internal Audit Director Name Role Phone FLEX GUILLERMO Unavailable PROBLEMS Type Condition ICD9-CM Code [id number] Code Onset Dates Condition S tatus SNOMED Code Problem Social anxiety disorder F40.10 Active 46907411 Problem Hyperlipidemia E78.5 Active 31968 004 Problem Hypertension I10 Active 3820919 3 Problem Posttraumatic stress disorder F43.10 Active 68086029 Problem Bipolar 2 disorder F31.81 Active 8 1638357 Problem Attention deficit disorder F90.0 Act shalom 389911455 Problem Lumbago with sciatica, right side M54.41 Active [id number] Problem Lumbago with sciatica, left side M54.42 Active 831123312 Problem Urinary hesitancy R39.11 Active 59 40745 Problem Gastroesophageal reflux disease without esophagitis K21.9 Active 501711261 Problem Other chronic pain G89.29 Active 8 7324888 Problem Chronic post-traumatic stress disorder (PTSD) F43. 12 Active [id number] ALLERGIES No Information ENCOUNTERS Encounter Location Date Diagnosis [facility] [place] [address] [facility] [id number] [address] [place] [address] Dec, [facility] [place] [address] [facility] [id number] [address] [place] [address] October, [facility] [place] [address] [facility] [id number] [address] [place] [address] Oct, Bipolar 2 disorder F31.81 ; Attention deficit disorder F90.0 ; Social anxiety disorder F40.10 and Chronic post-traumatic stress disorder (PTSD) F43.12 [facility] [place] [address] [facility] [id number] [address] [place] [address] Oct, [facility] [place] [address] [place] [id number] [address] [place] [address] Oct, [facility] [place] [address] [id number] [address] [place] [phone] Aug, [facility] [place] [address] [id number] [address] [place] [id number] Aug, [facility] [place] [address] [facility] [id number] [address] [place] [address] Jul, Strain of lumbar region, ini tial encounter S39.012A [facility] [address] [id number] [address] [place] [address] Jul, Lumbago with sciatica, left side M54.42 and Lumbago with sciatica, right side M54.41 [facility] [address] [facility] [id number] [address] [place] [address] Jul, Low back pain M54.5 and Othe r chronic pain G89.29 [facility] [place] [address] [id number] [address] [place] [address] Jul, [facility] [place] [address] [facility] [id number] [address] [place] [address] Jul, Bipolar 2 disorder F31.81 ; Attention deficit disorder F90.0 and Social anxiety disorder F40.10 [facility] [place] [address] [facility] [id number] [address] [place] [address] Jun, [facility] [place] [address] [facility] [id number] [address] [place] [address] May, [facility] [place] [address] [facility] [id number] [address] [place] [address] Apr, Bipolar 2 disorder F31.81 ; Attention deficit disorder F90.0 ; Social anxiety disorder F40.10 and Chronic post-traumatic stress disorder (PTSD) F43.12 [facility] [place] [address] [facility] [id number] [address] [place] [address] 13 Apr, 2017 [facility] [place] [address] [facility] [id number] [address] [place] [address] Apr, Hyperlipidemia E78.5 [facility] [address] [facility] [id number] [address] [place] [address] 27 Mar, 2017 Encounter for immunization Z 23 and Tinea cruris B35.6 [facility] [place] [address] [facility] [id number] [address] [place] [address] Mar, [facility] [place] [address] [facility] [id number] [address] [place] [address] Jan, [facility] [place] [address] [facility] [id number] [address] [place] [address] Dec, [facility] [place] [address] [facility] [id number] [address] [place] [address] Dec, [facility] [place] [address] [facility] [id number] [address] [place] [address] Dec, Bipolar 2 disorder F31.81 ; Social anxiety disorder F40.10 and Attention deficit disorder F90.0 [facility] [place] [address] [facility] [id number] [address] [place] [address] Dec, [facility] [place] [address] [facility] [id number] [address] [place] [address] Dec, Hypertension I10 [facility] [place] [address] [facility] [id number] [address] [place] [address] October, [facility] [place] [address] [facility] [id number] [address] [place] [address] Oct, [facility] [place] [address] [facility] [id number] [address] [place] [address] Oct, Nasal congestion R09.81 [facility] [place] [address] [facility] [id number] [address] [place] [address] Oct, Social anxiety disorder F40. 10 ; Bipolar 2 disorder F31.81 and Attention deficit disorder F90.0 [facility] [place] [address] [facility] [id number] [address] [place] [address] Aug, [facility] [place] [address] [facility] [id number] [address] [place] [address] Aug, [facility] [place] [address] [place] [id number] [address] [place] [address] Jul, Nasal congestion R09.81 [facility] [place] [address] [place] [id number] [address] [place] [phone] Jul, [facility] [place] [address] [place] [id number] [place] [address] Jun, Bipolar 2 disorder F31.81 ; Attention deficit disorder F90.0 ; Social anxiety disorder F40.10 and Chronic post-traumatic stress disorder (PTSD) F43.12 [facility] [place] [address] [address] Jun, [facility] [place] [address] [address] May, [facility] [place] [address] [address] 14 Apr, 2016 Attention deficit disorder F 90.0 [facility] [place] [address] [place] [id number] [place] [address] Apr, Urinary hesitancy R39.11 ; H yperlipidemia E78.5 and Encounter for immunization Z23 [facility] [place] [address] [place] [id number] [address] [place] [address] Apr, [facility] [place] [address] [place] [id number] [address] [place] [address] Mar, [facility] [place] [address] [place] [id number] [place] [address] Jan, [facility] [place] [address] [facility] [id number] [address] [place] [address] Dec, [facility] [place] [address] [place] [id number] [address] [place] [address] Dec, [facility] [place] [address] [facility] [id number] [address] [place] [address] Dec, Bipolar 2 disorder F31.81 ; Attention deficit disorder F90.0 ; Posttraumatic stress disorder F43.10 and Social anxiety disorder F40.10 [facility] [address] [facility] [id number] [address] [place] [address] Dec, Scabies exposure Z20.89 and Scabies B86 [facility] [place] [address] [facility] [id number] [address] [place] [address] Dec, [facility] [place] [address] [facility] [id number] [address] [place] [address] Dec, Hypertension I10 and Gastroe sophageal reflux disease without esophagitis K21.9 [facility] [place] [address] [facility] [id number] [address] [place] [address] October, [facility] [place] [address] [facility] [id number] [address] [place] [address] October, [facility] [place] [address] [facility] [id number] [address] [place] [address] Oct, Bipolar 2 disorder F31.81 ; Posttraumatic stress disorder F43.10 ; Attention deficit disorder F90.0 and Social anxiety disorder F40.10 [facility] [place] [address] [facility] [id number] [address] [place] [address] Oct, [facility] [place] [address] [facility] [id number] [address] [place] [address] Oct, Hypertension I10 and Nasal c ongestion R09.81 [facility] [place] [address] [facility] [id number] [address] [place] [address] Aug, [facility] [place] [address] [facility] [id number] [address] [place] [address] Aug, [facility] [place] [address] [facility] [id number] [address] [place] [address] Aug, [facility] [place] [address] [place] [id number] [address] [place] [address] Aug, [facility] [place] [address] [address] Aug, [facility] [place] [address] [address] Aug, Hypertension I10 and Tremor R25.1 [facility] [place] [address] [address] Aug, Bipolar 2 disorder F31.81 ; Posttraumatic stress disorder F43.10 ; Attention deficit disorder F90.0 and Social anxiety disorder F40.10 [place] [address] [address] Jul, [place] [address] [address] Jul, Hyperlipidemia E78.5 [facility] [place] [address] [address] Jul, Hypertension I10 and Hyperli pidemia E78.5 [place] [address] [address] Jun, Bipolar 2 disorder F31.81 ; Posttraumatic stress disorder F43.10 ; Attention deficit disorder F90.0 and Social anxiety disorder F40.10 [place] [address] [address] May, [facility] [place] [address] [address] May, [facility] [place] [address] [address] Apr, Bipolar 2 disorder F31.81 ; Posttraumatic stress disorder F43.10 ; Attention deficit disorder F90.0 and Social phobia F40.10 [facility] [place] [address] [address] Apr, Bipolar 2 disorder F31.81 ; Posttraumatic stress disorder F43.10 and Attention deficit disorder F90.0 [facility] [place] [address] [id number] [address] [place] [address] Apr, [facility] [place] [address] [id number] [address] [place] [address] Apr, [facility] [place] [address] [facility] [id number] [address] [place] [address] Apr, [facility] [place] [address] [id number] [address] [place] [address] Mar, [facility] [place] [address] [id number] [address] [place] [address] Mar, [facility] [place] [address] [facility] [id number] [address] [place] [address] Jan, [facility] [place] [address] [facility] [id number] [address] [place] [address] Jan, [facility] [place] [address] [facility] [id number] [address] [place] [address] Jan, Bipolar II disorder 296.89 ; Posttraumatic stress disorder 309.81 ; Social phobia 300.23 and Attention deficit disorder of childhood without mention of hyperactivity 314.00 [facility] [place] [address] [facility] [id number] [address] [place] [address] Jan, Other and unspecified bipola r disorders 296.89 ; Posttraumatic stress disorder 309.81 and Attention deficit disorder of childhood without mention of hyperactivity 314.00 [facility] [place] [address] [facility] [id number] [address] [place] [address] Jan, [facility] [place] [address] [facility] [id number] [address] [place] [address] Dec, Other and unspecified bipola r disorders 296.89 ; Posttraumatic stress disorder 309.81 and Attention deficit disorder of childhood without mention of hyperactivity 314.00 [facility] [place] [address] [facility] [id number] [address] [place] [address] Dec, Migraines 346.90 [facility] [place] [address] [facility] [id number] [address] [place] [address] Dec, Other and unspecified bipola r disorders 296.89 ; Posttraumatic stress disorder 309.81 and Attention deficit disorder of childhood without mention of hyperactivity 314.00 [facility] [place] [address] [facility] [id number] [address] [place] [address] Dec, [facility] [place] [address] [facility] [id number] [address] [place] [address] Dec, Bipolar II disorder 296.89 ; Social phobia 300.23 ; Posttraumatic stress disorder 309.81 and Attention deficit disorder of childhood without mention of hyperactivity 314.00 [facility] [place] [address] [facility] [id number] [address] [place] [address] Dec, Other and unspecified bipola r disorders 296.89 ; Posttraumatic stress disorder 309.81 and Attention deficit disorder of childhood without mention of hyperactivity 314.00 [facility] [place] [address] [facility] [id number] [address] [place] [address] October, Other and unspecified bipola r disorders 296.89 ; Posttraumatic stress disorder 309.81 and Attention deficit disorder of childhood without mention of hyperactivity 314.00 [facility] [place] [address] [facility] [id number] [address] [place] [address] October, [facility] [place] [address] [facility] [id number] [address] [place] [address] October, [facility] [place] [address] [facility] [id number] [address] [place] [address] October, [facility] [place] [address] [facility] [id number] [address] [place] [address] October, [facility] [place] [address] [facility] [id number] [address] [place] [address] October, Attention deficit disorder o f childhood without mention of hyperactivity 314.00 ; Posttraumatic stress disorder 309.81 ; Social phobia 300.23 and Other and unspecified bipolar disorders 296.89 [facility] [address] [id number] [facility] [place] [address] 14 Oct, 2014 [facility] [address] [id number] [address] [place] [address], [place] [address] 13 Oct, 2014 [facility] [address] [id number] [address] [place] [address], [place] [address] 26 Aug, 2014 [facility] [address] [id number] [address] [place] [address], [place] [address] 26 Aug, 2014 [facility] [address] [id number] [address] [place] [address], [place] [address] 24 Aug, 2014 [facility] [address] [id number] [address] [place] [address], [place] [address] 24 Aug, 2014 [facility] [address] [id number] [address] [place] [address], [place] [address] 17 Aug, 2014 [facility] [address] [id number] [address] [place] [address], [place] [address] 17 Aug, 2014 [facility] [address] [id number] [address] [place] [address], [place] [address] 17 Aug, 2014 [facility] [address] [id number] [address] [place] [address], [place] [address] 17 Aug, 2014 [facility] [address] [id number] [address] [place] [address], [place] [address] 17 Aug, 2014 [facility] [address] [id number] [address] [place] [address], [place] [address] 17 Aug, 2014 [facility] [address] [id number] [address] [place] [address], [place] [address] 13 Aug, 2014 [facility] [address] [id number] [address] [place] [address], [place] [address] 13 Aug, 2014 [facility] [address] [id number] [address] [place] [address], [place] [address] 12 Aug, 2014 [facility] [address] [id number] [address] [place] [address], [place] [address] Aug, [facility] [address] [id number] [facility] [place] [address] Aug, [facility] [address] [id number] [address] [place] [address], [place] [address] Aug, [facility] [address] [id number] [address] [place] [address], [place] [address] Aug, [facility] [address] [id number] [address] [place] [address], [place] [address] Aug, [facility] [address] [id number] [address] [place] [address], [place] [address] Aug, [facility] [address] [id number] [address] [place] [address], [place] [address] Aug, [facility] [address] [id number] [address] [place] [address], [place] [address] Aug, [facility] [address] [id number] [address] [place] [address], [place] [address] Aug, [facility] [address] [id number] [address] [place] [address], [place] [address] Aug, [facility] [address] [id number] [address] [place] [address], [place] [address] Aug, [facility] [address] [id number] [address] [place] [address], [place] [address] Aug, 2014 [facility] [address] [id number] [address] [place] [address], [place] [address] Aug, 2014 [facility] [address] [id number] [address] [place] [address], [place] [address] Aug, 2014 [facility] [address] [id number] [address] [place] [address], [place] [address] Aug, 2014 [facility] [address] [id number] [address] [place] [address], [place] [address] Aug, [facility] [address] [id number] [address] [place] [address], [place] [address] Aug, [facility] [address] [id number] [address] [place] [address], [place] [address] Jul, [facility] [address] [id number] [address] [place] [address], [place] [address] Jul, [facility] [address] [id number] [address] [place] [address], [place] [address] Jul, [facility] [address] [id number] [address] [place] [address], [place] [address] Jul, [facility] [address] [id number] [address] [place] [address], [place] [address] Jul, [facility] [address] [id number] [address] [place] [address], [place] [address] Jul, [facility] [address] [id number] [address] [place] [address], [place] [address] Jul, [facility] [address] [id number] [address] [place] [address], [place] [address] Jul, [facility] [address] [id number] [address] [place] [address], [place] [address] Jun, [facility] [address] [id number] [address] [place] [address], [place] [address] Jun, [facility] [address] [id number] [address] [place] [address], [place] [address] Jun, [facility] [address] [id number] [address] [place] [address], [place] [address] Jun, [facility] [address] [id number] [address] [place] [address], [place] [address] May, [facility] [address] [id number] [address] [place] [address], [place] [address] May, [facility] [address] [id number] [address] [place] [address] [address] May, [facility] [place] [facility] [address] [facility] [id number] [address] [place] [id number] May, [facility] [place] [address] [facility] [id number] [address] [place] [id number] May, [facility] [place], [facility] [address] [facility] [id number] [address] [place] [phone] Apr, [facility] [place], [facility] [address] [facility] [id number] [address] [place] [phone] Apr, IMMUNIZATIONS No Known Immunizations SOCIAL HISTORY Never Assessed REASON FOR VISIT vyvanse 06/15/2017 PLAN OF CARE VITAL SIGNS MEDICATIONS Medication [...]
--- OUTSIDE RECORDS SUMMARY | 2019-11-11 19:13 | XMS REPORT ---
Author Author [place] [facility] e[employer] Address Unknown Phone Unavailable Care Team Providers Care Classroom Technology Technician Name Role Phone F[place] JOH[facility] CP Unavailable [...]
--- OUTSIDE RECORDS SUMMARY | 2019-11-11 19:13 | XMS REPORT ---
Author Author [place] Organization [facility] Address [address] [place] [address] Care Team Providers Care Tank Worker Name Role Phone F[place] JOHNSON Unavailable PROBLEMS Type Condition ICD9-CM Code [id number] Code Onset Dates Condition S tatus SNOMED Code Problem Social anxiety disorder F40.10 Active 94005359 Problem Hyperlipidemia E78.5 Active 18570 004 Problem Hypertension I10 Active 4251550 3 Problem Posttraumatic stress disorder F43.10 Active 62715771 Problem Bipolar 2 disorder F31.81 Active 8 5723459 Problem Attention deficit disorder F90.0 Act shalom 157933375 Problem Lumbago with sciatica, right side M54.41 Active [id number] Problem Lumbago with sciatica, left side M54.42 Active 014007807 Problem Urinary hesitancy R39.11 Active 59 07185 Problem Gastroesophageal reflux disease without esophagitis K21.9 Active 751714278 Problem Other chronic pain G89.29 Active 8 4461239 Problem Chronic post-traumatic stress disorder (PTSD) F43. 12 Active 003426003 ALLERGIES Substance Reaction Event Type Date Status Codeine Sulfate disoriented Drug Allergy Jul, Active ENCOUNTERS Encounter Location Date Diagnosis [facility] [address] [facility] [id number] [address] [place] [phone] Dec, [facility]ALK [facility] [address] [facility] [id number] [address] [place] [phone] Dec, Upper respiratory tract infe ction, unspecified type J06.9 [facility] [address] [facility] [id number] [address] [place] [phone] October, [facility] [address] [facility] [id number] [address] [place] [phone] Oct, Bipolar 2 disorder F31.81 ; Attention deficit disorder F90.0 ; Social anxiety disorder F40.10 and Chronic post-traumatic stress disorder (PTSD) F43.12 [facility] [address] [id number] [address] [place] [phone] Oct, [facility] [address] [id number] [address] [place] [phone] Oct, [facility] [address] [id number] [address] [place] [phone] Aug, [facility] [address] [id number] [address] [place] [phone] Aug, [facility] [address] [id number] [address] [place] [phone] Jul, Strain of lumbar region, ini tial encounter S39.012A [facility] [address] [id number] [address] [place] [phone] Jul, Lumbago with sciatica, left side M54.42 and Lumbago with sciatica, right side M54.41 [facility] [address] [id number] [address] [place] [phone] Jul, Low back pain M54.5 and Othe r chronic pain G89.29 [facility] [address] [id number] [address] [place] [phone] Jul, [facility] [address] [facility] [id number] [address] [place] [phone] Jul, Bipolar 2 disorder F31.81 ; Attention deficit disorder F90.0 and Social anxiety disorder F40.10 [facility] [address] [id number] [address] [place] [phone] Jun, [facility] [address] [facility] [id number] [address] [place] [phone] May, [facility] [address] [facility] [id number] [address] [place] [phone] Apr, Bipolar 2 disorder F31.81 ; Attention deficit disorder F90.0 ; Social anxiety disorder F40.10 and Chronic post-traumatic stress disorder (PTSD) F43.12 [facility] [address] [facility] [id number] [address] [place] [phone] Apr, [facility] [address] [facility] [id number] [address] [place] [phone] Apr, Hyperlipidemia E78.5 [facility] [address] [facility] [id number] [address] [place] [phone] Mar, Encounter for immunization Z 23 and Tinea cruris B35.6 [facility] [address] [facility] [id number] [address] [place] [phone] Mar, [facility] [address] [facility] [id number] [address] [place] [phone] Jan, [facility] [address] [place] [id number] [address] [place] [phone] Dec, [facility] [address] [facility] [id number] [address] [place] [phone] Dec, [facility] [address] [place] [id number] [address] [place] [phone] Dec, Bipolar 2 disorder F31.81 ; Social anxiety disorder F40.10 and Attention deficit disorder F90.0 [facility] [address] [facility] [id number] [address] [place] [phone] Dec, [facility] [address] [place] [id number] [address] [place] [phone] Dec, Hypertension I10 [facility] [address] [facility] [id number] [address] [place] [phone] October, [facility] [address] [place] [id number] [address] [place] [phone] Oct, [facility] [address] [place] [id number] [address] [place] [phone] Oct, Nasal congestion R09.81 [facility] [address] [id number] [address] [place] [phone] Oct, Social anxiety disorder F40. 10 ; Bipolar 2 disorder F31.81 and Attention deficit disorder F90.0 [facility] [address] [id number] [address] [place] [phone] Aug, [facility] [address] [facility] [id number] [address] [place] [phone] Aug, [facility] [address] [facility] [id number] [address] [place] [phone] Jul, Nasal congestion R09.81 [facility] [address] [facility] [id number] [address] [place] [phone] Jul, [facility] [address] [facility] [id number] [address] [place] [phone] Jun, Bipolar 2 disorder F31.81 ; Attention deficit disorder F90.0 ; Social anxiety disorder F40.10 and Chronic post-traumatic stress disorder (PTSD) F43.12 [facility] [address] [facility] [id number] [address] [place] [phone] Jun, [facility] [address] [place] [id number] [address] [place] [phone] May, [facility] [address] [place] [id number] [address] [place] [phone] 14 Apr, 2016 Attention deficit disorder F 90.0 [facility] [address] [facility] [id number] [address] [place] [phone] 10 Apr, 2016 Urinary hesitancy R39.11 ; H yperlipidemia E78.5 and Encounter for immunization Z23 [facility] [address] [facility] [id number] [address] [place] [phone] 03 Apr, 2016 [facility] [address] [facility] [id number] [address] [place] [phone] 16 Mar, 2016 [facility] [address] [facility] [id number] [address] [place] [phone] Jan, [facility] [address] [facility] [id number] [address] [place] [phone] Dec, [facility] [address] [facility] [id number] [address] [place] [phone] Dec, [facility] [address] [facility] [id number] [address] [place] [phone] Dec, Bipolar 2 disorder F31.81 ; Attention deficit disorder F90.0 ; Posttraumatic stress disorder F43.10 and Social anxiety disorder F40.10 [facility] [address] [facility] [id number] [address] [place] [phone] Dec, Scabies exposure Z20.89 and Scabies B86 [facility] [address] [facility] [id number] [address] [place] [phone] Dec, [facility] [address] [facility] [id number] [address] [place] [phone] Dec, Hypertension I10 and Gastroe sophageal reflux disease without esophagitis K21.9 [facility] [address] [facility] [id number] [address] [place] [phone] October, [facility] [address] [facility] [id number] [address] [place] [phone] October, [facility] [address] [facility] [id number] [address] [place] [phone] Oct, Bipolar 2 disorder F31.81 ; Posttraumatic stress disorder F43.10 ; Attention deficit disorder F90.0 and Social anxiety disorder F40.10 [facility] [address] [facility] [id number] [address] [place] [phone] Oct, [facility] [address] [facility] [id number] [address] [place] [phone] Oct, Hypertension I10 and Nasal c ongestion R09.81 [facility] [address] [facility] [id number] [address] [place] [phone] Aug, [facility] [address] [place] [id number] [address] [place] [phone] Aug, [facility] [address] [id number] Aug, [facility] [address] [place] [id number] [place] [phone] Aug, [facility] [address] [id number] Aug, [facility] [address] [phone] Aug, Hypertension I10 and Tremor R25.1 [facility] [address] [address] Aug, Bipolar 2 disorder F31.81 ; Posttraumatic stress disorder F43.10 ; Attention deficit disorder F90.0 and Social anxiety disorder F40.10 [facility] [address] [id number] Jul, [facility] [address] [address] Jul, Hyperlipidemia E78.5 [facility] [address] [phone] Jul, Hypertension I10 and Hyperli pidemia E78.5 [facility] [address] [place] [id number] [address] [place] [phone] Jun, Bipolar 2 disorder F31.81 ; Posttraumatic stress disorder F43.10 ; Attention deficit disorder F90.0 and Social anxiety disorder F40.10 [facility] [address] [address] May, [facility] [address] [place] [id number] [place] [phone] May, [facility] [address] [address] Apr, Bipolar 2 disorder F31.81 ; Posttraumatic stress disorder F43.10 ; Attention deficit disorder F90.0 and Social phobia F40.10 [facility] [address] [facility] [id number] [address] [place] [phone] Apr, Bipolar 2 disorder F31.81 ; Posttraumatic stress disorder F43.10 and Attention deficit disorder F90.0 [facility] [address] [id number] [address] [place] [phone] Apr, [facility] [address] [id number] [address] [place] [phone] Apr, [facility] [address] [id number] [address] [place] [phone] Apr, [facility] [address] [facility] [id number] [address] [place] [phone] Mar, [facility] [address] [facility] [id number] [address] [place] [phone] Mar, [facility] [address] [facility] [id number] [address] [place] [phone] Jan, [facility] [address] [facility] [id number] [address] [place] [phone] Jan, [facility] [address] [facility] [id number] [address] [place] [phone] Jan, Bipolar II disorder 296.89 ; Posttraumatic stress disorder 309.81 ; Social phobia 300.23 and Attention deficit disorder of childhood without mention of hyperactivity 314.00 [facility] [address] [id number] [address] [place] [phone] Jan, Other and unspecified bipola r disorders 296.89 ; Posttraumatic stress disorder 309.81 and Attention deficit disorder of childhood without mention of hyperactivity 314.00 [facility] [address] [id number] [address] [place] [phone] Jan, [facility] [address] [facility] [id number] [address] [place] [phone] Dec, Other and unspecified bipola r disorders 296.89 ; Posttraumatic stress disorder 309.81 and Attention deficit disorder of childhood without mention of hyperactivity 314.00 [facility] [address] [facility] [id number] [address] [place] [phone] Dec, Migraines 346.90 [facility] [address] [facility] [id number] [address] [place] [id number] Dec, Other and unspecified bipola r disorders 296.89 ; Posttraumatic stress disorder 309.81 and Attention deficit disorder of childhood without mention of hyperactivity 314.00 [facility] [address] [facility] [id number] [address] [place] [phone] Dec, [facility] [address] [facility] [id number] [address] [place] [phone] Dec, Bipolar II disorder 296.89 ; Social phobia 300.23 ; Posttraumatic stress disorder 309.81 and Attention deficit disorder of childhood without mention of hyperactivity 314.00 [facility] [address] [facility] [id number] [address] [place] [phone] Dec, Other and unspecified bipola r disorders 296.89 ; Posttraumatic stress disorder 309.81 and Attention deficit disorder of childhood without mention of hyperactivity 314.00 [facility] [address] [facility] [id number] [address] [place] [phone] October, Other and unspecified bipola r disorders 296.89 ; Posttraumatic stress disorder 309.81 and Attention deficit disorder of childhood without mention of hyperactivity 314.00 [facility] [address] [facility] [id number] [address] [place] [phone] October, [facility] [address] [facility] [id number] [address] [place] [phone] October, [facility] [address] [facility] [id number] [address] [place] [phone] October, [facility] [address] [facility] [id number] [address] [place] [phone] October, [facility] [address] [id number] [address] [place] [phone] October, Attention deficit disorder o f childhood without mention of hyperactivity 314.00 ; Posttraumatic stress disorder 309.81 ; Social phobia 300.23 and Other and unspecified bipolar disorders 296.89 [facility] [address] [id number] [address] [place] [phone] Oct, [facility] [address] [id number] [address] [place] [phone] Oct, [facility] [address] [id number] [address] [place] [phone] Aug, [facility] [address] [id number] [address] [place] [phone] Aug, [facility] [address] [id number] [address] [place] [phone] Aug, [facility] [address] [id number] [address] [place] [phone] Aug, [facility] [address] [id number] [address] [place] [phone] Aug, [facility] [address] [id number] [address] [place] [phone] Aug, [facility] [address] [id number] [address] [place] [phone] Aug, [facility] [address] [id number] [address] [place] [phone] Aug, [facility] [address] [id number] [address] [place] [phone] Aug, [facility] [address] [id number] [address] [place] [phone] 17 Aug, 2014 [facility] [address] [id number] [address] [place] [phone] Aug, [facility] [address] [id number] [address] [place] [phone] 13 Aug, 2014 [facility] [address] [id number] [facility] [place] [address] 12 Aug, 2014 [facility] [address] [id number] [address] [place] [address], [place] [address] Aug, [facility] [address] [id number] [address] [place] [address], [place] [address] Aug, [facility] [address] [id number] [address] [place] [address], [place] [address] Aug, [facility] [address] [id number] [address] [place] [address], [place] [address] Aug, [facility] [address] [id number] [address] [place] [address], [place] [address] Aug, [facility] [address] [id number] [address] [place] [address], [place] [address] Aug, [facility] [address] [id number] [address] [place] [address], [place] [address] Aug, [facility] [address] [id number] [address] [place] [address], [place] [address] Aug, [facility] [address] [id number] [address] [place] [address], [place] [address] Aug, [facility] [address] [id number] [address] [place] [address], [place] [address] Aug, [facility] [address] [id number] [address] [place] [address], [place] [address] Aug, [facility] [address] [id number] [address] [place] [address], [place] [address] Aug, [facility] [address] [id number] [address] [place] [address], [place] [address] Aug, [facility] [address] [id number] [address] [place] [address], [place] [address] Aug, [facility] [address] [id number] [address] [place] [address], [place] [address] Aug, [facility] [address] [id number] [address] [place] [address], [place] [address] Aug, [facility] [address] [id number] [address] [place] [address], [place] [address] Aug, [facility] [address] [id number] [address] [place] [address], [place] [address] Jul, [facility] [address] [id number] [address] [place] [address], [place] [address] Jul, [facility] [address] [id number] [address] [place] [address], [place] [address] Jul, [facility] [address] [id number] [address] [place] [address], [place] [address] Jul, [facility] [address] [id number] [address] [place] [address], [place] [address] Jul, [facility] [address] [id number] [address] [place] [address], [place] [address] Jul, [facility] [address] [id number] [address] [place] [address], [place] [address] Jul, [facility] [address] [id number] [address] [place] [address], [place] [address] Jul, [facility] [address] [id number] [address] [place] [address], [place] [address] Jun, [facility] [address] [id number] [address] [place] [address], [place] [address] Jun, [facility] [address] [id number] [address] [place] [address], [place] [address] Jun, [facility] [address] [id number] [address] [place] [address], [place] [address] Jun, [facility] [address] [id number] [address] [place] [address], [place] [address] May, [facility] [address] [id number] [address] [place] [phone] May, [facility] [address] [id number] [address] [place] [phone] May, [facility] [address] [id number] [address] [place] [phone] May, [facility] [address] [id number] [address] [place] [phone] May, [facility] [address] [id number] [address] [place] [id number] Apr, [facility] [address] [facility] [id number] [address] [place] [id number] Apr, IMMUNIZATIONS No Known Immunizations SOCIAL HISTORY Never Assessed REASON FOR VISIT Increased back pain. Hurt back leaning forward on monday, has been to walk in x 2, had xrays, was given prednisone, and hydrocodone for pain. Still in excruci ating pain. Silvia CARY PLAN OF CARE Activity Details Follow Up regular appt Reason: VITAL SIGNS Height 64 in 2017-07-13 Weight 164 lbs 2017-07-13 Temperature 98.3 degrees Fahrenheit 2017-07-13 Heart Rate 80 bpm 2017-07-13 Respiratory Rate 20 2017-07-13 BMI 28.15 kg/m2 2017-07-13 Blood pressure systolic 146 mmHg 2017-07-13 Blood pressure diastolic 88 mmHg 2017-07-13 MEDICATIONS Medication Instructions Dosage Frequency Start Date End Date Duration S tatus Omeprazole 20 MG TAKE ONE CAPSULE BY MOUTH ONCE DAILY 30 Active Lamotrigine 200 mg Orally in the evening for depression 1 tablet Active Vitamin D3 5000 UNIT Orally Once a day 1 capsule 24h Apr, Active Aspirin 325 mg 1 tablet by Oral route 1 time per day Apr, Active PredniSONE 50 MG Orally Once a day 1 tablet 24h Jul, Jul, 5 days Active Baclofen 10 mg Orally 3 times a day 1 tablet with food or milk 8h Jul, Jul, 10 days Active Hydrocodone-Acetaminophen 5-325 MG Orally every 4 hrs 1 tablet as n eeded 4h Jul, Active Lisinopril 20 MG Orally Once a day 1 tablet 24h 30 Active Atorvastatin Calcium 20 MG Orally Once a day 1 tablet 24h 30 Not-Taking Vyvanse 30 MG Orally Once a day for ADHD 1 capsule in the morning Jun, 28 days Active Colace 100 mg 1 capsule by Oral route 2 times per day PRN 30 Apr, 2014 Active Multivitamin 1 tablet by Oral route 1 time per day 30 Oc , 2013 Active Diclofenac Sodium 75 MG Orally Twice a day 1 tablet with food or mi lk 12h Jul, Aug, 30 day(s) Active Vitamin C 500 mg 1 tablet by Oral route 1 time per day 3 0 Apr, 2014 Active RESULTS No Results PROCEDURES No Known procedures INSTRUCTIONS MEDICATIONS ADMINISTERED No Known Medications MEDICAL (GENERAL) HISTORY Type Description Date Medical History Hypertension Medical History GERD Medical History Bipolar Surgical History Hernia right ingual Surgical History Colonoscopy october 2014 Hospitalization History surgeries Hospitalization History ER for dehydration and vomitting 10/04/15
--- OUTSIDE RECORDS SUMMARY | 2019-11-11 19:13 | XMS REPORT ---
Author Author [facility] [employer] Address Unknown Phone Unavailable Care Team Providers Care Experimental Physicist Name Role Phone GUILLERMO [facility] CP Unavailable Allergies No Known Allergies Problems [...] Instructions Start Date End Date Status Dosage Adderall [facility] [id number] 20 MG Orally in the AM & 1pm for ADHD September 16, 2014 1 tablet Results No Known Results Summary Purpose eClinical[employer] Submission
--- OUTSIDE RECORDS SUMMARY | 2019-11-11 19:13 | XMS REPORT ---
Author Author [facility] [employer] Address Unknown Phone Unavailable Care Team Providers Care Executive Producer Name Role Phone GUILLERMO [facility] CP Unavailable Allergies No Known Allergies Problems Problem Type Condition Code Onset Dates Condition Statu s Problem [...] Start Date End Date Status Dosage Adderall [facility] [id number] 20 MG Orally in the AM & 1pm for ADHD Dr. Barron to sign for Rafaela September 16, 2014 1 tablet Results No Known Results Summary Purpose eClinicalWorks Submission
--- OUTSIDE RECORDS SUMMARY | 2019-11-11 19:13 | XMS REPORT ---
Author Author [place] Organization [facility] Address [address] [place] [address] Care Team Providers Care President Educational [employer] Name Role Phone FLEX GUILLERMO Unavailable PROBLEMS Type Condition ICD9-CM Code [id number] Code Onset Dates Condition S tatus SNOMED Code Problem Social anxiety disorder F40.10 Active 78441178 Problem Hyperlipidemia E78.5 Active 72567 004 Problem Hypertension I10 Active 6034687 3 Problem Posttraumatic stress disorder F43.10 Active 65973669 Problem Bipolar 2 disorder F31.81 Active 8 0527879 Problem Attention deficit disorder F90.0 Act shalom 509330395 Problem Lumbago with sciatica, right side M54.41 Active 521691440322323 Problem Lumbago with sciatica, left side M54.42 Active 120145910 Problem Urinary hesitancy R39.11 Active 59 49802 Problem Gastroesophageal reflux disease without esophagitis K21.9 Active 096690769 Problem Other chronic pain G89.29 Active 8 3846535 Problem Chronic post-traumatic stress disorder (PTSD) F43. 12 Active 532344705 ALLERGIES Substance Reaction Event Type Date Status Codeine Sulfate disoriented Drug Allergy Oct, Active ENCOUNTERS Encounter Location Date Diagnosis [facility] [address] [facility] [id number] [address] [place] [address] May, [facility] [address] [facility] [id number] [address] [place] [address] Dec, Bipolar 2 disorder F31.81 ; Social anxiety disorder F40.10 and Chronic post-traumatic stress disorder (PTSD) F43.12 [facility] [address] [facility] [id number] [address] [place] [address] Dec, [facility] [address] [facility] [id number] [address] [place] [address] Dec, [facility] [address] [id number] [address] [place] [address] Dec, Upper respiratory tract infe ction, unspecified type J06.9 [facility] [address] [id number] [address] [place] [address] October, [facility] [address] [id number] [address] [place] [address] Oct, Bipolar 2 disorder F31.81 ; Attention deficit disorder F90.0 ; Social anxiety disorder F40.10 and Chronic post-traumatic stress disorder (PTSD) F43.12 [facility] [address] [id number] [address] [place] [address] Oct, [facility] [address] [id number] [address] [place] [address] Oct, [facility] [address] [facility] [id number] [address] [place] [address] Aug, [facility] [address] [id number] [address] [place] [address] Aug, [facility] [address] [id number] [address] [place] [address] Jul, Strain of lumbar region, ini tial encounter S39.012A [facility] [address] [id number] [address] [place] [address] Jul, Lumbago with sciatica, left side M54.42 and Lumbago with sciatica, right side M54.41 [facility] [address] [id number] [address] [place] [address] Jul, Low back pain M54.5 and Othe r chronic pain G89.29 [facility] [address] [id number] [address] [place] [address] Jul, [facility] [address] [facility] [id number] [address] [place] [address] Jul, Bipolar 2 disorder F31.81 ; Attention deficit disorder F90.0 and Social anxiety disorder F40.10 [facility] [address] [id number] [address] [place] [address] Jun, [facility] [address] [facility] [id number] [address] [place] [address] May, [facility] [address] [facility] [id number] [address] [place] [address] Apr, Bipolar 2 disorder F31.81 ; Attention deficit disorder F90.0 ; Social anxiety disorder F40.10 and Chronic post-traumatic stress disorder (PTSD) F43.12 [facility] [address] [facility] [id number] [address] [place] [address] Apr, [facility] [address] [facility] [id number] [address] [place] [address] Apr, Hyperlipidemia E78.5 [facility] [address] [facility] [id number] [address] [place] [address] Mar, Encounter for immunization Z 23 and Tinea cruris B35.6 [facility] [address] [facility] [id number] [address] [place] [address] Mar, [facility] [address] [facility] [id number] [address] [place] [address] Jan, [facility] [address] [facility] [id number] [address] [place] [address] Dec, [facility] [address] [facility] [id number] [address] [place] [address] Dec, [facility] [address] [facility] [id number] [address] [place] [address] Dec, Bipolar 2 disorder F31.81 ; Social anxiety disorder F40.10 and Attention deficit disorder F90.0 [facility] [address] [facility] [id number] [address] [place] [address] Dec, [facility] [address] [id number] [address] [place] [id number] 08 Dec, 2016 Hypertension I10 [facility] [address] [id number] [address] [place] [address] October, [facility] [address] [id number] [address] [place] [address] Oct, [facility] [address] [id number] [address] [place] [address] Oct, Nasal congestion R09.81 [facility] [address] [id number] [address] [place] [address] Oct, Social anxiety disorder F40. 10 ; Bipolar 2 disorder F31.81 and Attention deficit disorder F90.0 [facility] [address] [id number] [address] [place] [address] Aug, [facility] [address] [id number] [address] [place] [address] Aug, [facility] [address] [id number] [address] [place] [address] Jul, Nasal congestion R09.81 [facility] [address] [id number] [address] [place] [address] Jul, [facility] [address] [facility] [id number] [address] [place] [address] Jun, Bipolar 2 disorder F31.81 ; Attention deficit disorder F90.0 ; Social anxiety disorder F40.10 and Chronic post-traumatic stress disorder (PTSD) F43.12 [facility] [address] [id number] [address] [place] [address] Jun, [facility] [address] [id number] [address] [place] [address] May, [facility] [address] [facility] [id number] [address] [place] [address] 14 Apr, 2016 Attention deficit disorder F 90.0 [facility] [address] [id number] [address] [place] [address] Apr, Urinary hesitancy R39.11 ; H yperlipidemia E78.5 and Encounter for immunization Z23 [facility] [address] [facility] [id number] [address] [place] [address] Apr, [facility] [address] [facility] [id number] [address] [place] [address] Mar, [facility] [address] [facility] [id number] [address] [place] [address] Jan, [facility] [address] [facility] [id number] [address] [place] [address] Dec, [facility] [address] [facility] [id number] [address] [place] [address] Dec, [facility] [address] [facility] [id number] [address] [place] [address] Dec, Bipolar 2 disorder F31.81 ; Attention deficit disorder F90.0 ; Posttraumatic stress disorder F43.10 and Social anxiety disorder F40.10 [facility] [address] [facility] [id number] [address] [place] [address] Dec, Scabies exposure Z20.89 and Scabies B86 [facility] [address] [facility] [id number] [address] [place] [address] Dec, [facility] [address] [facility] [id number] [address] [place] [address] Dec, Hypertension I10 and Gastroe sophageal reflux disease without esophagitis K21.9 [facility] [address] [facility] [id number] [address] [place] [address] October, [facility] [address] [facility] [id number] [address] [place] [address] October, [facility] [address] [facility] [id number] [address] [place] [address] Oct, Bipolar 2 disorder F31.81 ; Posttraumatic stress disorder F43.10 ; Attention deficit disorder F90.0 and Social anxiety disorder F40.10 [facility] [address] [address] Oct, [facility] [address] [place] [id number] [place] [address] Oct, Hypertension I10 and Nasal c ongestion R09.81 [facility] [address] [place] [id number] [place] [address] Aug, [facility] [address] [place] [place] [id number] [place] [address] Aug, [facility] [address] [address] Aug, [facility] [address] [address] Aug, [facility] [address] [address] Aug, [facility] [address] [address] Aug, Hypertension I10 and Tremor R25.1 [facility] [address] [address] Aug, Bipolar 2 disorder F31.81 ; Posttraumatic stress disorder F43.10 ; Attention deficit disorder F90.0 and Social anxiety disorder F40.10 [facility] [address] [place] [id number] [place] [address] Jul, [facility] [address] [place] [id number] [place] [address] Jul, Hyperlipidemia E78.5 [facility] [address] [place] [id number] [place] [address] Jul, Hypertension I10 and Hyperli pidemia E78.5 [facility] [address] [place] [id number] [place] [address] Jun, Bipolar 2 disorder F31.81 ; Posttraumatic stress disorder F43.10 ; Attention deficit disorder F90.0 and Social anxiety disorder F40.10 [facility] [address] [facility] [id number] [address] [place] [address] May, [facility] [address] [facility] [id number] [address] [place] [address] May, [facility] [address] [facility] [id number] [address] [place] [address] Apr, Bipolar 2 disorder F31.81 ; Posttraumatic stress disorder F43.10 ; Attention deficit disorder F90.0 and Social phobia F40.10 [facility] [address] [facility] [id number] [address] [place] [address] Apr, Bipolar 2 disorder F31.81 ; Posttraumatic stress disorder F43.10 and Attention deficit disorder F90.0 [facility] [address] [facility] [id number] [address] [place] [id number] Apr, [facility] [address] [facility] [id number] [address] [place] [address] Apr, [facility] [address] [facility] [id number] [address] [place] [id number] Apr, [facility] [address] [facility] [id number] [address] [place] [address] Mar, [facility] [address] [facility] [id number] [address] [place] [address] Mar, [facility] [address] [facility] [id number] [address] [place] [address] Jan, [facility] [address] [facility] [id number] [address] [place] [address] Jan, [facility] [address] [facility] [id number] [address] [place] [address] Jan, Bipolar II disorder 296.89 ; Posttraumatic stress disorder 309.81 ; Social phobia 300.23 and Attention deficit disorder of childhood without mention of hyperactivity 314.00 [facility] [address] [facility] [id number] [address] [place] [address] Jan, Other and unspecified bipola r disorders 296.89 ; Posttraumatic stress disorder 309.81 and Attention deficit disorder of childhood without mention of hyperactivity 314.00 [facility] [address] [facility] [id number] [address] [place] [id number] Jan, [facility] [address] [facility] [id number] [address] [place] [address] Dec, Other and unspecified bipola r disorders 296.89 ; Posttraumatic stress disorder 309.81 and Attention deficit disorder of childhood without mention of hyperactivity 314.00 [facility] [address] [facility] [id number] [address] [place] [address] Dec, Migraines 346.90 [facility] [address] [facility] [id number] [address] [place] [address] Dec, Other and unspecified bipola r disorders 296.89 ; Posttraumatic stress disorder 309.81 and Attention deficit disorder of childhood without mention of hyperactivity 314.00 [facility] [address] [facility] [id number] [address] [place] [id number] Dec, [facility] [address] [facility] [id number] [address] [place] [address] Dec, Bipolar II disorder 296.89 ; Social phobia 300.23 ; Posttraumatic stress disorder 309.81 and Attention deficit disorder of childhood without mention of hyperactivity 314.00 [facility] [address] [facility] [id number] [address] [place] [address] Dec, Other and unspecified bipola r disorders 296.89 ; Posttraumatic stress disorder 309.81 and Attention deficit disorder of childhood without mention of hyperactivity 314.00 [facility] [address] [facility] [id number] [address] [place] [address] October, Other and unspecified bipola r disorders 296.89 ; Posttraumatic stress disorder 309.81 and Attention deficit disorder of childhood without mention of hyperactivity 314.00 [facility] [address] [facility] [id number] [address] [place] [address] October, [facility] [address] [id number] [address] [place] [address] October, [facility] [address] [id number] [address] [place] [address] October, [facility] [address] [facility] [id number] [address] [place] [address] October, [facility] [address] [facility] [id number] [address] [place] [address] October, Attention deficit disorder o f childhood without mention of hyperactivity 314.00 ; Posttraumatic stress disorder 309.81 ; Social phobia 300.23 and Other and unspecified bipolar disorders 296.89 [facility] [address] [facility] [id number] [address] [place] [phone] Oct, [facility] [address] [facility] [id number] [address] [place] [address] Oct, [facility] [address] [facility] [id number] [address] [place] [address] Aug, [facility] [address] [id number] [address] [place] [address] Aug, [facility] [address] [facility] [id number] [address] [place] [address] Aug, [facility] [address] [id number] [address] [place] [address] Aug, [facility] [address] [id number] [address] [place] [address] Aug, [facility] [address] [id number] [address] [place] [address] Aug, [facility] [address] [facility] [id number] [address] [place] [address] Aug, [facility] [address] [id number] [address] [place] [phone] 17 Aug, 2014 [facility] [address] [id number] [facility] [place] [address] 17 Aug, 2014 [facility] [address] [id number] [facility] [place] [address] 17 Aug, 2014 [facility] [address] [id number] [facility] [place] [address] 13 Aug, 2014 [facility] [address] [id number] [address] [place] [address], [place] [address] 13 Aug, 2014 [facility] [address] [id number] [facility] [place] [address] 12 Aug, 2014 [facility] [address] [id number] [address] [place] [address], [place] [address] Aug, [facility] [address] [id number] [address] [place] [address], [place] [address] Aug, [facility] [address] [id number] [address] [place] [address], [place] [address] Aug, [facility] [address] [id number] [address] [place] [address], [place] [address] Aug, [facility] [address] [id number] [address] [place] [address], [place] [address] Aug, [facility] [address] [id number] [address] [place] [address], [place] [address] Aug, [facility] [address] [id number] [address] [place] [address], [place] [address] Aug, [facility] [address] [id number] [address] [place] [address], [place] [address] 04 Aug, 2014 [facility] [address] [id number] [address] [place] [address], [place] [address] 04 Aug, 2014 [facility] [address] [id number] [address] [place] [address], [place] [address] Aug, [facility] [address] [id number] [address] [place] [address], [place] [address] Aug, [facility] [address] [id number] [address] [place] [address], [place] [address] Aug, [facility] [address] [id number] [address] [place] [address], [place] [address] Aug, 2014 [facility] [address] [id number] [address] [place] [address], [place] [address] Aug, 2014 [facility] [address] [id number] [address] [place] [address], [place] [address] Aug, [facility] [address] [id number] [address] [place] [address], [place] [address] Aug, [facility] [address] [id number] [address] [place] [address], [place] [address] Aug, [facility] [address] [id number] [address] [place] [address], [place] [address] Jul, [facility] [address] [id number] [address] [place] [address], [place] [address] Jul, [facility] [address] [id number] [address] [place] [address], [place] [address] Jul, [facility] [address] [id number] [address] [place] [address], [place] [address] Jul, [facility] [address] [id number] [address] [place] [address], [place] [address] Jul, [facility] [address] [id number] [address] [place] [address], [place] [address] Jul, [facility] [address] [id number] [address] [place] [address], [place] [address] Jul, [facility] [address] [id number] [address] [place] [address], [place] [address] Jul, [facility] [address] [id number] [address] [place] [address], [place] [address] Jun, [facility] [address] [id number] [address] [place] [address] Jun, [facility] [address] [id number] [address] [place] [address] Jun, [facility] [address] [id number] [address] [place] [address] Jun, [facility] [address] [id number] [address] [place] [address] May, [facility] [address] [id number] [address] [place] [id number] May, [facility] [address] [id number] [address] [place] [id number] May, [facility] [address] [id number] [address] [place] [phone] May, [facility] [address] [id number] [address] [place] [id number] May, [facility] [address] [id number] [address] [place] [id number] Apr, [facility] [address] [id number] [address] [place] [id number] Apr, IMMUNIZATIONS No Known Immunizations SOCIAL HISTORY Never Assessed REASON FOR VISIT f/faiza Castelan RN PLAN OF CARE Activity Details Follow Up 3 Months Reason: VITAL SIGNS Height 64 in 2017-10-26 Weight 156.4 lbs 2017-10-26 Heart Rate 96 bpm 2017-10-26 Respiratory Rate 20 2017-10-26 BMI 26.84 kg/m2 2017-10-26 Blood pressure systolic 126 mmHg 2017-10-26 Blood pressure diastolic 82 mmHg 2017-10-26 MEDICATIONS Medication Instructions Dosage Frequency Start Date End Date Duration S tatus Multivitamin 1 tablet by Oral route 1 time per day 30 2013 Active Aspirin 325 mg 1 tablet [...] 3 0 Apr, 2014 Active Omeprazole 20 MG TAKE ONE CAPSULE BY MOUTH ONCE DAILY 30 Active Lisinopril 20 MG TAKE ONE TABLET BY MOUTH ONCE DAILY 30 Active Hydrocodone-Acetaminophen 5-325 MG Orally every 4 hrs 1 tablet as n eeded 4h Jul, Not-Taking Vyvanse 30 MG Orally Once a day for ADHD 1 capsule in the morning Oct, Active Lamotrigine 200 MG TAKE ONE TABLET BY M OUTH ONCE DAILY IN THE EVENING FOR DEPRESSION 30 Active Colace 100 mg 1 capsule by Oral route 2 times per day PRN 30 Apr, 2014 Not-Taking RESULTS No Results PROCEDURES No Known procedures INSTRUCTIONS MEDICATIONS ADMINISTERED No Known Medications MEDICAL (GENERAL) HISTORY Type Description Date Medical History Hypertension Medical History GERD Medical History Bipolar Surgical History Hernia right ingual Surgical History Colonoscopy october 2014 Hospitalization History surgeries Hospitalization History ER for dehydration and vomitting 10/04/15
--- OUTSIDE RECORDS SUMMARY | 2019-11-11 19:14 | XMS REPORT ---
Author [place] [employer] Address Unknown Phone Unavailable Care Team Providers Care Street Contractor Name Role Phone GUILLERMO MCCORD CP Unavailable Allergies, Adverse Reactions, Alerts Substance Reaction Event Type Codeine Sulfate disoriented Drug Allergy Problems Problem Type Condition Code Onset Dates Condition Statu s Problem Blood in stool 578.1 Active Problem Other and unspecified hyperlipidemia 272.4 Active Problem Reflux esophagitis 530.11 Active Problem Bipolar 2 disorder F31.81 Active Problem Posttraumatic stress disorder F43.10 Active Problem Social anxiety disorder F40.10 Acti ve Problem Other malaise and fatigue 780.79 Ac tive Problem Disturbance of skin sensation 782.0 Active Problem Attention deficit disorder F90.0 A ctive Problem Migraines 346.90 Active Assessment Attention deficit disorder F90.0 A ctive Assessment Posttraumatic stress disorder F43.10 Active Assessment Bipolar 2 disorder F31.81 Active Assessment Social anxiety disorder F40.10 Acti ve Problem Anal fissure 565.0 Active Medications Medication Code System Code Instructions Start Date End Date Status Dosage Vitamin C [facility] [address]-79 500 mg May 01, 2014 1 tablet by Oral route 1 time per day Vitamin D3 [facility] [address]409-[address]36 1,000 unit May 01, 2014 2 Capsule 1 time per day take one tablet orally daily Lamictal [facility] [address]-87 100 MG Orally Once at night Apr 21, 2015 1 tablets Aspirin [facility] [address]-21 325 mg May 01, 2014 1 ta blet by Oral route 1 time per day Colace [facility] [address]-84 100 mg May 01, 2014 1 ca psule by Oral route 2 times per day PRN Multivitamin [facility] 79[address]116 May 01, 2014 1 tablet by Oral route 1 time per day Anusol-HC [facility] [address]-89 25 mg September 23, 2014 b y Rectal route 2 times per day Adderall [facility] [address]-52 20 MG Orally in the AM & 1pm for ADHD Dr. Barron to sign for Rafaela September 16, 2014 1 tablet Guanfacine HCl [facility] [address]-97 2 MG Orally Once at HS 1 tablet 1 [place] [address]-52 50 MG Orally PRN November 04, 2014 1 tablet as needed atorvastatin NDC 0 20 mg Once a day May 01, 2014 take 1 tablet by Oral route 1 time per day QHS; Avoid grapefruit juice Omeprazole [facility] [address]-25 20 MG Orally Once a day May 01, 2014 1 capsule Procedures Procedure Coding System Code Date Office Visit, Est Pt., Level 4 CPT-4 98439 Jun 04, 2015 Vital Signs Date/Time: Jun 04, 2015 Cardiac Monitoring Heart Rate 96 bpm Weight 150.0 lbs Height 64 in BMI 25.74 Index Blood Pressure Diastolic 90 mmHg Blood Pressure Systolic 126 mmHg Results No Known Results Summary Purpose [employer] Submission
--- OUTSIDE RECORDS SUMMARY | 2019-11-11 19:14 | XMS REPORT ---
Author [place] [employer] Address Unknown Phone Unavailable Care Team Providers Care Surety Bond Agent Name Role Phone GUILLERMO MCCORD CP Unavailable Allergies No Known Allergies Problems Problem Type Condition Code Onset Dates Condition Statu s Problem Attention deficit disorder F90.0 A ctive Problem Gastroesophageal reflux disease without esophagitis K2 1.9 Active Problem Hypertension I10 Active Problem Urinary hesitancy R39.11 Active Problem Bipolar 2 disorder F31.81 Active Problem Posttraumatic stress disorder F43.10 Active Problem Hyperlipidemia E78.5 Active Problem Social anxiety disorder F40.10 Acti ve Medications Medication Code System Code Instructions Start Date End Date Status Dosage Adderall [facility] [address]-54 20 mg Orally in the AM &1pm for A DHD September 16, 2014 1 tablet Adderall [facility] [address]-95 5 mg Orally at 4pm for ADHD January 14, 2016 1 tablet Results No Known Results Summary Purpose [employer] Submission
--- OUTSIDE RECORDS SUMMARY | 2019-11-11 19:14 | XMS REPORT ---
Author [place] [employer] Address Unknown Phone Unavailable Care Team Providers Care [employer] Name Role Phone GUILLERMO MCCORD CP Unavailable Allergies No Known Allergies Problems Problem Type Condition Code Onset Dates Condition Statu s Problem Anal fissure 565.0 Active Problem Reflux esophagitis 530.11 Active Problem Blood in stool 578.1 Active Problem Posttraumatic stress disorder F43.10 Active Problem Attention deficit disorder F90.0 A ctive Problem Bipolar 2 disorder F31.81 Active Problem Disturbance of skin sensation 782.0 Active Problem Other and unspecified hyperlipidemia 272.4 Active Problem Migraines 346.90 Active Problem Other malaise and fatigue 780.79 Ac tive Medications Medication Code System Code Instructions Start Date End Date Status Dosage Adderall [facility] [address]-59 20 MG Orally in the AM & 1pm for ADHD Dr. Barron to sign for Rafaela September 16, 2014 1 tablet Results No Known Results Summary Purpose [employer] Submission
--- OUTSIDE RECORDS SUMMARY | 2019-11-11 19:14 | XMS REPORT ---
Author Author [place] Organization [facility] Address [address] [place] [address] Care Team Providers Care Meat Hanger Name Role Phone [place] Unavailable PROBLEMS Type Condition ICD9-CM Code XQT83-GU Code Onset Dates Condition S tatus SNOMED Code Problem Social anxiety disorder F40.10 Active 82495405 Problem Hyperlipidemia E78.5 Active 80842 004 Problem Hypertension I10 Active 0347515 3 Problem Posttraumatic stress disorder F43.10 Active 68036801 Problem Bipolar 2 disorder F31.81 Active 8 8688655 Problem Attention deficit disorder F90.0 Act shalom 282229240 Problem Lumbago with sciatica, right side M54.41 Active [id number] Problem Lumbago with sciatica, left side M54.42 Active 365304784 Problem Urinary hesitancy R39.11 Active 59 90151 Problem Gastroesophageal reflux disease without esophagitis K21.9 Active 478540521 Problem Other chronic pain G89.29 Active 8 4114514 Problem Chronic post-traumatic stress disorder (PTSD) F43. 12 Active 812100007 ALLERGIES No Information ENCOUNTERS Encounter Location Date Diagnosis [facility] [address] [facility] [id number] [address] [place] [phone] Dec, [facility] [address] [facility] [id number] [address] [place] [address] Oct, Bipolar 2 disorder F31.81 ; Attention deficit disorder F90.0 ; Social anxiety disorder F40.10 and Chronic post-traumatic stress disorder (PTSD) F43.12 [facility] [address] [facility] [id number] [address] [place] [phone] Oct, [facility] [address] [place] [id number] [address] [place] [phone] Oct, [facility] [address] [id number] [address] [place] [phone] Aug, [facility] [address] [id number] [address] [place] [phone] Aug, [facility] [address] [facility] [id number] [address] [place] [address] Jul, Strain of lumbar region, ini tial encounter S39.012A [facility] [address] [facility] [id number] [address] [place] [address] Jul, Lumbago with sciatica, left side M54.42 and Lumbago with sciatica, right side M54.41 [facility] [address] [facility] [id number] [address] [place] [phone] Jul, Low back pain M54.5 and Othe r chronic pain G89.29 [place] [address] [facility] [id number] [address] [place] [address] Jul, [facility] [address] [facility] [id number] [address] [place] [address] Jul, Bipolar 2 disorder F31.81 ; Attention deficit disorder F90.0 and Social anxiety disorder F40.10 [facility] [address] [facility] [id number] [address] [place] [address] Jun, [place] [address] [facility] [id number] [address] [place] [address] May, [facility] [address] [facility] [id number] [address] [place] [address] Apr, Bipolar 2 disorder F31.81 ; Attention deficit disorder F90.0 ; Social anxiety disorder F40.10 and Chronic post-traumatic stress disorder (PTSD) F43.12 [facility] [address] [facility] [id number] [address] [place] [address] 13 Apr, 2017 [facility] [address] [facility] [id number] [address] [place] [address] Apr, Hyperlipidemia E78.5 [facility] [address] [facility] [id number] [address] [place] [phone] Mar, Encounter for immunization Z 23 and Tinea cruris B35.6 [facility] [address] [facility] [id number] [address] [place] [address] Mar, [facility] [address] [facility] [id number] [address] [place] [address] Jan, [facility] [address] [facility] [id number] [address] [place] [address] Dec, [facility] [address] [facility] [id number] [address] [place] [address] Dec, [facility] [address] [place] [id number] [address] [place] [address] Dec, Bipolar 2 disorder F31.81 ; Social anxiety disorder F40.10 and Attention deficit disorder F90.0 [facility] [address] [facility] [id number] [address] [place] [address] Dec, [facility] [address] [place] [id number] [address] [place] [address] Dec, Hypertension I10 [facility] [address] [place] [id number] [address] [place] [phone] October, [facility] [address] [facility] [id number] [address] [place] [address] Oct, [facility] [address] [place] [id number] [address] [place] [address] Oct, Nasal congestion R09.81 [facility] [address] [facility] [id number] [address] [place] [address] Oct, Social anxiety disorder F40. 10 ; Bipolar 2 disorder F31.81 and Attention deficit disorder F90.0 [facility] [address] [facility] [id number] [address] [place] [address] Aug, [facility] [address] [place] [id number] [address] [place] [phone] Aug, [facility] [address] [facility] [id number] [address] [place] [address] Jul, Nasal congestion R09.81 [facility] [address] [facility] [id number] [address] [place] [phone] Jul, [facility] [address] [place] [id number] [address] [place] [address] Jun, Bipolar 2 disorder F31.81 ; Attention deficit disorder F90.0 ; Social anxiety disorder F40.10 and Chronic post-traumatic stress disorder (PTSD) F43.12 [facility] [address] [place] [id number] [address] [place] [address] Jun, [facility] [address] [place] [id number] [address] [place] [address] May, [facility] [address] [place] [id number] [address] [place] [address] Apr, Attention deficit disorder F 90.0 [facility] [address] [place] [id number] [address] [place] [address] Apr, Urinary hesitancy R39.11 ; H yperlipidemia E78.5 and Encounter for immunization Z23 [facility] [address] [facility] [id number] [address] [place] [phone] Apr, [facility] [address] [facility] [id number] [address] [place] [address] Mar, [facility] [address] [facility] [id number] [address] [place] [phone] Jan, [facility] [address] [facility] [id number] [address] [place] [phone] Dec, [facility] [address] [facility] [id number] [address] [place] [address] Dec, [facility] [address] [facility] [id number] [address] [place] [address] Dec, Bipolar 2 disorder F31.81 ; Attention deficit disorder F90.0 ; Posttraumatic stress disorder F43.10 and Social anxiety disorder F40.10 [facility] [address] [facility] [id number] [address] [place] [address] Dec, Scabies exposure Z20.[address] [facility] [address] [facility] [id number] [address] [place] [address] Dec, [facility] [address] [facility] [id number] [address] [place] [address] Dec, Hypertension I10 and Gastroe sophageal reflux disease without esophagitis K21.9 [facility] [address] [facility] [id number] [address] [place] [address] October, [facility] [address] [facility] [id number] [address] [place] [address] October, [facility] [address] [place] [id number] [address] [place] [address] Oct, Bipolar 2 disorder F31.81 ; Posttraumatic stress disorder F43.10 ; Attention deficit disorder F90.0 and Social anxiety disorder F40.10 [facility] [address] [place] [id number] [address] [place] [phone] Oct, [facility] [address] [facility] [id number] [address] [place] [address] Oct, Hypertension I10 and Nasal c ongestion R09.81 [facility] [address] [facility] [id number] [address] [place] [phone] Aug, [facility] [address] [facility] [id number] [address] [place] [phone] Aug, [facility] [address] [facility] [id number] [address] [place] [address] Aug, [facility] [address] [facility] [id number] [address] [place] [address] Aug, [facility] [address] [facility] [id number] [address] [place] [phone] Aug, [facility] [address] [facility] [id number] [address] [place] [address] Aug, Hypertension I10 [address] [facility] [address] [facility] [id number] [address] [place] [address] Aug, Bipolar 2 disorder F31.81 ; Posttraumatic stress disorder F43.10 ; Attention deficit disorder F90.0 and Social anxiety disorder F40.10 [facility] [address] [facility] [id number] [address] [place] [phone] Jul, [facility] [address] [facility] [id number] [address] [place] [address] Jul, Hyperlipidemia E78.5 [facility] [address] [place] [id number] [address] [place] [address] Jul, Hypertension I10 and Hyperli pidemia E78.5 [facility] [address] [facility] [id number] [address] [place] [address] Jun, Bipolar 2 disorder F31.81 ; Posttraumatic stress disorder F43.10 ; Attention deficit disorder F90.0 and Social anxiety disorder F40.10 [facility] [address] [place] [id number] [address] [place] [address] May, [facility] [address] [place] [id number] [address] [place] [address] May, [facility] [address] [place] [id number] [address] [place] [address] Apr, Bipolar 2 disorder F31.81 ; Posttraumatic stress disorder F43.10 ; Attention deficit disorder F90.0 [address]obia F40.10 [facility] [address] [facility] [id number] [address] [place] [address] Apr, Bipolar 2 disorder F31.81 ; Posttraumatic stress disorder F43.10 and Attention deficit disorder F90.0 [facility] [address] [id number] [address] [place] [address] Apr, [facility] [address] [id number] [address] [place] [phone] Apr, [facility] [address] [id number] [address] [place] [phone] Apr, [facility] [address] [id number] [address] [place] [phone] Mar, [facility] [address] [id number] [address] [place] [phone] Mar, [facility] [address] [id number] [address] [place] [phone] Jan, [facility] [address] [facility] [id number] [address] [place] [address] Jan, [facility] [address] [facility] [id number] [address] [place] [address] Jan, Bipolar II disorder 296.89 ; Posttraumatic stress disorder 309.81 ; Social phobia 300.23 and Attention deficit disorder of childhood without mention of hyperactivity 314.00 [facility] [address] [facility] [id number] [address] [place] [phone] Jan, Other and unspecified bipola r disorders 296.89 ; Posttraumatic stress disorder 309.81 and Attention deficit disorder of childhood without mention of hyperactivity 314.00 [facility] [address] [facility] [id number] [address] [place] [phone] Jan, [facility] [address] [facility] [id number] [address] [place] [address] Dec, Other and unspecified bipola r disorders 296.89 ; Posttraumatic stress disorder 309.81 and Attention deficit disorder of childhood without mention of hyperactivity 314.00 [facility] [address] [facility] [id number] [address] [place] [address] Dec, Migraines 346.90 [facility] [address] [facility] [id number] [address] [place] [address] Dec, Other and unspecified bipola r disorders 296.89 ; Posttraumatic stress disorder 309.81 and Attention deficit disorder of childhood without mention of hyperactivity 314.00 [facility] [address] [facility] [id number] [address] [place] [phone] Dec, [facility] [address] [facility] [id number] [address] [place] [address] Dec, Bipolar II disorder 296.89 ; Social phobia 300.23 ; Posttraumatic stress disorder 309.81 and Attention deficit disorder of childhood without mention of hyperactivity 314.00 [facility] [address] [facility] [id number] [address] [place] [address] Dec, Other and unspecified bipola r disorders 296.89 ; Posttraumatic stress disorder 309.81 and Attention deficit disorder of childhood without mention of hyperactivity 314.00 [facility] [address] [facility] [id number] [address] [place] [address] October, Other and unspecified bipola r disorders 296.89 ; Posttraumatic stress disorder 309.81 and Attention deficit disorder of childhood without mention of hyperactivity 314.00 [facility] [address] [facility] [id number] [address] [place] [phone] October, [facility] [address] [facility] [id number] [address] [place] [phone] October, [facility] [address] [facility] [id number] [address] [place] [phone] October, [facility] [address] [facility] [id number] [address] [place] [phone] October, [facility] [address] [facility] [id number] [address] [place] [phone] October, Attention deficit disorder o f childhood without mention of hyperactivity 314.00 ; Posttraumatic stress disorder 309.81 ; Social phobia 300.23 and Other and unspecified bipolar disorders 296.89 [facility] [address] [facility] [id number] [address] [place] [phone] Oct, [facility] [address] [id number] [facility] [place] [address] 13 Oct, 2014 [facility] [address] [id number] [facility] [place] [address] 26 Aug, 2014 [facility] [address] [id number] [facility] [place] [address] 26 Aug, 2014 [facility] [address] [id number] [address] [place] [address], [place] [address] 24 Aug, 2014 [facility] [address] [id number] [address] [place] [address], [place] [address] 24 Aug, 2014 [facility] [address] [id number] [address] [place] [address], [place] [address] 17 Aug, 2014 [facility] [address] [id number] [address] [place] [address], [place] [address] 17 Aug, 2014 [facility] [address] [id number] [address] [place] [address], [place] [address] 17 Aug, 2014 [facility] [address] [id number] [address] [place] [address], [place] [address] 17 Aug, 2014 [facility] [address] [id number] [address] [place] [address], [place] [address] 17 Aug, 2014 [facility] [address] [id number] [address] [place] [address], [place] [address] 17 Aug, 2014 [facility] [address] [id number] [address] [place] [address], [place] [address] 13 Aug, 2014 [facility] [address] [id number] [address] [place] [address], [place] [address] 13 Aug, 2014 [facility] [address] [id number] [address] [place] [address], [place] [address] 12 Aug, 2014 [facility] [address] [id number] [address] [place] [address], [place] [address] Aug, [facility] [address] [id number] [address] [place] [address], [place] [address] Aug, [facility] [address] [id number] [address] [place] [address], [place] [address] Aug, [facility] [address] [id number] [address] [place] [address], [place] [address] Aug, [facility] [address] [id number] [address] [place] [address], [place] [address] Aug, [facility] [address] [id number] [address] [place] [address], [place] [address] Aug, [facility] [address] [id number] [address] [place] [address], [place] [address] Aug, [facility] [address] [id number] [address] [place] [address], [place] [address] Aug, [facility] [address] [id number] [address] [place] [address], [place] [address] Aug, [facility] [address] [id number] [address] [place] [address], [place] [address] Aug, [facility] [address] [id number] [address] [place] [address], [place] [address] Aug, [facility] [address] [id number] [address] [place] [address], [place] [address] Aug, [facility] [address] [id number] [address] [place] [address], [place] [address] Aug, 2014 [facility] [address] [id number] [address] [place] [address], [place] [address] Aug, 2014 [facility] [address] [id number] [address] [place] [address], [place] [address] Aug, 2014 [facility] [address] [id number] [address] [place] [address], [place] [address] Aug, 2014 [facility] [address] [id number] [address] [place] [address], [place] [address] Aug, 2014 [facility] [address] [id number] [address] [place] [address], [place] [address] Jul, [facility] [address] [id number] [address] [place] [address], [place] [address] Jul, [facility] [address] [id number] [address] [place] [address], [place] [address] Jul, [facility] [address] [id number] [address] [place] [address], [place] [address] Jul, [facility] [address] [id number] [address] [place] [address], [place] [address] Jul, [facility] [address] [id number] [address] [place] [address], [place] [address] Jul, [facility] [address] [id number] [address] [place] [address], [place] [address] Jul, [facility] [address] [id number] [address] [place] [address], [place] [address] Jul, [facility] [address] [id number] [address] [place] [address], [place] [address] Jun, [facility] [address] [id number] [address] [place] [address], [place] [address] Jun, [facility] [address] [id number] [address] [place] [address], [place] [address] Jun, [facility] [address] [id number] [address] [place] [address], [place] [address] Jun, [facility] [address] [id number] [address] [place] [address], [place] [address] May, [facility] [address] [id number] [address] [place] [address], [place] [address] May, [facility] [address] [id number] [address] [place] [address], [place] [address] May, [facility] [address] [id number] [address] [place] [address] [address] May, [facility] [address] [facility] [id number] [address] [place] [phone] May, [facility] [address] [facility] [id number] [address] [place] [address] Apr, [facility] [address] [facility] [id number] [address] [place] [phone] Apr, IMMUNIZATIONS No Known Immunizations SOCIAL HISTORY Never Assessed REASON FOR VISIT Lab (walk-in) PLAN OF CARE VITAL SIGNS MEDICATIONS Unknown Medications RESULTS Name Result Date Reference Range LIPID PANEL 2017-04-13 Cholesterol, Total 193 100-199 Triglycerides 118 0-149 HDL Cholesterol 46 >39 VLDL Cholesterol Vin 24 5-40 LDL Cholesterol Calc 123 0-99 Comment: CMP 2017-04-13 Glucose, Serum 104 65-99 BUN 18 6-24 Creatinine, Serum 1.25 0.76-1.27 eGFR If NonAfricn Am 67 >59 eGFR If Africn Am 78 >59 BUN/Creatinine Ratio 14 9-20 Sodium, Serum 138 134-144 Potassium, Serum 4.4 3.5-5.2 Chloride, Serum 99 96-106 Carbon Dioxide, Total 25 18-29 Calcium, Serum 9.8 8.7-10.2 Protein, Total, Serum 6.7 6.0-8.5 Albumin, Serum 4.3 3.5-5.5 Globulin, Total 2.4 1.5-4.5 A/G Ratio 1.8 1.2-2.2 Bilirubin, Total 0.4 0.0-1.2 Alkaline Phosphatase, S 91 39-117 AST (SGOT) 18 0-40 ALT (SGPT) 28 0-44 PROCEDURES Procedure Date Ordered Result Body Site COMPREHEN METABOLIC PANEL Apr 13, 2017 LIPID PANEL Apr 13, 2017 VENIPUNCT, ROUTINE* Apr 13, 2017 INSTRUCTIONS MEDICATIONS ADMINISTERED No Known Medications MEDICAL (GENERAL) HISTORY Type Description Date Medical History Hypertension Medical History GERD Medical History Bipolar Surgical History Hernia right ingual Surgical History Colonoscopy october 2014 Hospitalization History surgeries Hospitalization History ER for dehydration and vomitting 10/04/15
--- OUTSIDE RECORDS SUMMARY | 2019-11-11 19:14 | XMS REPORT ---
Author Author [place] Organization [facility] Address [address] [place] [address] Care Team Providers Care Back Shoe Cutter Name Role Phone GUILLERMO MCCORD Unavailable PROBLEMS Type Condition ICD9-CM Code [id number] Code Onset Dates Condition S tatus SNOMED Code Problem Attention deficit disorder F90.0 Act shalom 838126636 Problem Gastroesophageal reflux disease without esophagitis K21.9 Active 543929021 Problem Hypertension I10 Active 0559349 3 Problem Bipolar 2 disorder F31.81 Active 8 8680271 Problem Posttraumatic stress disorder F43.10 Active 86076437 Problem Hyperlipidemia E78.5 Active 73564 004 Problem Social anxiety disorder F40.10 Active [id number] ALLERGIES Unknown Allergies SOCIAL HISTORY No smoking Hx information available PLAN OF CARE VITAL SIGNS MEDICATIONS Medication Instructions Dosage Frequency Start Date End Date Duration S tatus Adderall 20 mg Orally in the AM &1pm for ADHD 1 tablet Aug, 2 015 Active Adderall 5 mg Orally at 4pm for ADHD 1 tablet Dec, Active RESULTS No Results PROCEDURES No Known procedures IMMUNIZATIONS No Known Immunizations
--- OUTSIDE RECORDS SUMMARY | 2019-11-11 19:14 | XMS REPORT ---
Author Author [place] eClinicalWorks Address Unknown Phone Unavailable Care Team Providers Care Mounted Police Name Role Phone GUILLERMO MCCORD CP Unavailable [...] Start Date End Date Status Dosage Adderall [facility] [place] [address]-99 20 MG Orally in the AM & 1pm for ADHD Janett to sign for Rafaela September 16, 2014 1 tablet Results No Known Results Summary Purpose eClinicalWorks Submission
--- OUTSIDE RECORDS SUMMARY | 2019-11-11 19:14 | XMS REPORT ---
Author [place] [facility] eClinicalWorks Address Unknown Phone Unavailable Care Team Providers Care Assistant Dean Of Students Name Role Phone FALLON JOHNSON CP Unavailable Allergies, Adverse Reactions, Alerts Substance Reaction Event Type Codeine Sulfate disoriented Drug Allergy Problems Problem Type Condition Code Onset Dates Condition Statu s Problem Other and unspecified hyperlipidemia 272.4 Active Problem Other malaise and fatigue 780.79 Ac tive Problem Disturbance of skin sensation 782.0 Active Problem Hyperlipidemia E78.5 Active Problem Social anxiety disorder F40.10 Acti ve Problem Hypertension I10 Active Problem Attention deficit disorder F90.0 A ctive Problem Migraines 346.90 Active Problem Bipolar 2 disorder F31.81 Active Problem Posttraumatic stress disorder F43.10 Active Assessment Hypertension I10 Active Problem Anal fissure 565.0 Active Problem Blood in stool 578.1 Active Assessment Tremor R25.1 Active Problem Reflux esophagitis 530.11 Active Medications Medication Code System Code Instructions Start Date End Date Status Dosage Lamictal [facility] [address]-51 100 MG Orally Once at night Apr 21, 2015 1 tablets Skelaxin [facility] [address]-32 800 mg September 11, 2014 1 Tablet by Oral route 3- 4 times per day PRN muscle spasm Viagra [facility] [address]-33 50 MG Orally PRN November 04, 2014 1 tablet as needed Anusol-HC [facility] [address]-30 25 mg September 23, 2014 b y Rectal route 2 times per day Adderall [facility] [address]-97 20 MG Orally in the AM & 1pm for ADHD Dr. Johnson to sign for Rafaela September 16, 2014 1 tablet Aspirin [facility] [address]-33 325 mg May 01, 2014 1 ta blet by Oral route 1 time per day atorvastatin ND 0 20 mg Once a day May 01, 2014 take 1 tablet by Oral route 1 time per day QHS; Avoid grapefruit juice Vitamin C [facility] [address]-24 500 mg May 01, 2014 1 tablet by Oral route 1 time per day Vitamin D3 [facility] 09483-91753 1,000 unit May 01, 2014 2 Capsule 1 time per day take one tablet orally daily Colace [facility] [address]-71 100 mg May 01, 2014 1 ca psule by Oral route 2 times per day PRN Omeprazole [facility] [address]-31 20 MG Orally Once a day May 01, 2014 1 capsule Lisinopril [facility] [address]-97 20 MG Orally Once a day Jul 07, 2015 1 tablet Multivitamin [facility] 39236-[address]27 May 01, 2014 1 tablet by Oral route 1 time per day Procedures Procedure Coding System Code Date Office Visit, Est Pt., Level 3 CPT-4 55088 F 2015 Vital Signs Date/Time: Aug 06, 2015 Temperature 98.7 F Weight 149.6 lbs Height 64 in BMI 25.68 Index Blood Pressure Diastolic 86 mmHg Blood Pressure Systolic 138 mmHg Cardiac Monitoring Heart Rate 92 bpm Results No Known Results Summary Purpose eClinicalWorks Submission
--- OUTSIDE RECORDS SUMMARY | 2019-11-11 19:14 | XMS REPORT ---
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 Name Role Phone FALLON JOHNSON CP Unavailable Allergies, Adverse Reactions, Alerts Substance Reaction Event Type Codeine Sulfate disoriented Drug Allergy Problems Problem Type Condition Code Onset Dates Condition Statu s Assessment Hyperlipidemia E78.5 Active Problem Attention deficit disorder F90.0 A ctive Assessment Urinary hesitancy R39.11 Active Assessment Encounter for immunization Z23 A ctive Problem Gastroesophageal reflux disease without esophagitis K2 1.9 Active Problem Hypertension I10 Active Problem Urinary hesitancy R39.11 Active Problem Bipolar 2 disorder F31.81 Active Problem Posttraumatic stress disorder F43.10 Active Problem Hyperlipidemia E78.5 Active Problem Social anxiety disorder F40.10 Acti ve Medications Medication Code System Code Instructions Start Date End Date Status Dosage Colace [facility] [address]-53 100 mg May 01, 2014 1 ca psule by Oral route 2 times per day PRN Multivitamin [facility] 71175-[address]209 May 01, 2014 1 tablet by Oral route 1 time per day Lisinopril [facility] [address]-19 20 MG Orally Once a day Jul 07, 2015 1 tablet Vitamin D3 [facility] [address]-81 5000 UNIT Orally Once a day May 01 4 2 Capsule 1 time per day take one tablet orally daily Aspirin [facility] [address]-28 325 mg May 01, 2014 1 ta blet by Oral route 1 time per day Adderall [facility] [address]-44 5 mg Orally at 4pm for ADHD January 14, 2016 1 tablet Adderall [facility] [address]-23 20 mg Orally in the AM &1pm for A DHD September 16, 2014 1 tablet Skelaxin [facility] [address]-31 800 mg September 11, 2014 1 Tablet by Oral route 3- 4 times per day PRN muscle spasm Anusol-HC [facility] [address]-72 25 mg September 23, 2014 b y Rectal route 2 times per day Sudafed [facility] [address]-60 60 mg Orally every 6 hrs October 08, 2015 1 tablet as needed Lamotrigine [facility] 36924551802 100 MG Orally In the evening 1 tablet Atorvastatin Calcium [facility] 32818763320 20 MG Orally Once a day 1 tablet Vitamin C [facility] [address]-78 500 mg May 01, 2014 1 tablet by Oral route 1 time per day Viagra [facility] [address]-52 50 MG Orally PRN November 04, 2014 1 tablet as needed Omeprazole [facility] [address]-89 20 mg Orally Once a day May 01, 2014 1 capsule Procedures Procedure Coding System Code Date LIPID PANEL CPT-4 72567 Apr 11, 2016 COMPREHEN METABOLIC PANEL CPT-4 93340 Apr ASSAY OF PSA, TOTAL CPT-4 53493 Apr 11, 2016 SINGLE IMMUNIZATION ADMIN CPT-4 04062 Apr FLUARIX QUAD P-FREE 3 AND UP .50 2015 CPT-4 39640 Apr 11, 2016 VENIPUNCT, ROUTINE* CPT-4 12597 Apr 11, 2016 Office Visit, Est Pt., Level 3 CPT-4 31838 O 2015 Vital Signs Date/Time: Apr 11, 2016 Cardiac Monitoring Heart Rate 88 bpm Weight 145 lbs Height 64 in BMI 24.89 Index Blood Pressure Diastolic 90 mmHg Blood Pressure Systolic 138 mmHg Results Name Result Date Reference Range Unit Abnormali ty Flag PSA ----Prostate Specific Ag, Serum 2.0 [id number] 0.0-4.0 ng/m L Immunizations Vaccine Administration Date FLUARIX QUAD P-FREE 3 AND UP .50 2015Apr 11, 2016 Summary Purpose eClinicalWorks Submission
--- OUTSIDE RECORDS SUMMARY | 2019-11-11 19:14 | XMS REPORT ---
Author [place] eClinicalWorks Address Unknown Phone Unavailable Care Team Providers Care Scientific Recruiter Name Role Phone GUILLERMO MCCORD CP Unavailable Allergies No Known Allergies Problems Problem Type Condition Code Onset Dates Condition Statu s Problem Hypertension I10 Active Problem Hyperlipidemia E78.5 Active Problem Gastroesophageal reflux disease without esophagitis K2 1.9 Active Problem Posttraumatic stress disorder F43.10 Active Problem Attention deficit disorder F90.0 A ctive Problem Social anxiety disorder F40.10 Acti ve Problem Bipolar 2 disorder F31.81 Active Medications Medication Code System Code Instructions Start Date End Date Status Dosage Adderall [facility] [address]-28 20 mg Orally in the AM & 1pm for ADHD Dr. Barron to sign for Rafaela September 16, 2014 1 tablet Adderall [facility] [address]-12 5 mg Orally Oat 4pm for ADHD January 13 6 1 tablet in the morning Results No Known Results Summary Purpose eClinicalWorks Submission
--- OUTSIDE RECORDS SUMMARY | 2019-11-11 19:14 | XMS REPORT ---
Author Author [facility] Address [address] [place] [address] Care Team Providers [employer] Architect Name Role Phone FLEX GUILLERMO Unavailable PROBLEMS Type Condition ICD9-CM Code [id number] Code Onset Dates Condition S tatus SNOMED Code Problem Social anxiety disorder F40.10 Active 87914456 Problem Hyperlipidemia E78.5 Active 08589 004 Problem Hypertension I10 Active 4806352 3 Problem Posttraumatic stress disorder F43.10 Active 12730406 Problem Bipolar 2 disorder F31.81 Active 8 8278578 Problem Attention deficit disorder F90.0 Act shalom 578501801 Problem Lumbago with sciatica, right side M54.41 Active [id number] Problem Lumbago with sciatica, left side M54.42 Active 364801557 Problem Urinary hesitancy R39.11 Active 59 51911 Problem Gastroesophageal reflux disease without esophagitis K21.9 Active 641224704 Problem Other chronic pain G89.29 Active 8 8754534 Problem Chronic post-traumatic stress disorder (PTSD) F43. 12 Active [id number] ALLERGIES No Information ENCOUNTERS Encounter Location Date Diagnosis [facility] [address] [facility] [id number] [address] [place] [id number] Dec, [facility] [address] [facility] [id number] [address] [place] [address] Oct, Bipolar 2 disorder F31.81 ; Attention deficit disorder F90.0 ; Social anxiety disorder F40.10 and Chronic post-traumatic stress disorder (PTSD) F43.12 [facility] [address] [facility] [id number] [address] [place] [address] Oct, [facility] [address] [place] [id number] [address] [place] [phone] Oct, [facility] [address] [id number] [address] [place] [address] Aug, [facility] [address] [id number] [address] [place] [phone] Aug, [facility] [address] [facility] [id number] [address] [place] [address] Jul, Strain of lumbar region, ini tial encounter S39.012A [facility] [address] [facility] [id number] [address] [place] [address] Jul, Lumbago with sciatica, left side M54.42 and Lumbago with sciatica, right side M54.41 [facility] [address] [facility] [id number] [address] [place] [address] Jul, Low back pain M54.5 and Othe r chronic pain G89.29 [place] [address] [facility] [id number] [address] [place] [phone] Jul, [facility] [address] [facility] [id number] [address] [place] [address] Jul, Bipolar 2 disorder F31.81 ; Attention deficit disorder F90.0 and Social anxiety disorder F40.10 [facility] [address] [facility] [id number] [address] [place] [address] Jun, [place] [address] [facility] [id number] [address] [place] [phone] May, [facility] [address] [facility] [id number] [address] [place] [address] Apr, Bipolar 2 disorder F31.81 ; Attention deficit disorder F90.0 ; Social anxiety disorder F40.10 and Chronic post-traumatic stress disorder (PTSD) F43.12 [facility] [address] [facility] [id number] [address] [place] [phone] 13 Apr, 2017 [facility] [address] [facility] [id number] [address] [place] [address] Apr, Hyperlipidemia E78.5 [facility] [address] [facility] [id number] [address] [place] [id number] Mar, Encounter for immunization Z 23 and Tinea cruris B35.6 [facility] [address] [facility] [id number] [address] [place] [id number] Mar, [facility] [address] [facility] [id number] [address] [place] [phone] Jan, [facility] [address] [facility] [id number] [address] [place] [address] Dec, [facility] [address] [facility] [id number] [address] [place] [address] Dec, [facility] [address] [place] [id number] [address] [place] [address] Dec, Bipolar 2 disorder F31.81 ; Social anxiety disorder F40.10 and Attention deficit disorder F90.0 [facility] [address] [facility] [id number] [address] [place] [phone] Dec, [facility] [address] [place] [id number] [address] [place] [address] Dec, Hypertension I10 [facility] [address] [place] [id number] [address] [place] [phone] October, [facility] [address] [facility] [id number] [address] [place] [phone] Oct, [facility] [address] [place] [id number] [address] [place] [address] Oct, Nasal congestion R09.81 [facility] [address] [facility] [id number] [address] [place] [address] Oct, Social anxiety disorder F40. 10 ; Bipolar 2 disorder F31.81 and Attention deficit disorder F90.0 [facility] [address] [facility] [id number] [address] [place] [phone] Aug, [facility] [address] [place] [id number] [address] [place] [phone] Aug, [facility] [address] [facility] [id number] [address] [place] [address] Jul, Nasal congestion R09.81 [facility] [address] [facility] [id number] [address] [place] [phone] Jul, [facility] [address] [place] [id number] [address] [place] [phone] Jun, Bipolar 2 disorder F31.81 ; Attention deficit disorder F90.0 ; Social anxiety disorder F40.10 and Chronic post-traumatic stress disorder (PTSD) F43.12 [facility] [address] [place] [id number] [address] [place] [address] Jun, [facility] [address] [place] [id number] [address] [place] [phone] May, [facility] [address] [place] [id number] [address] [place] [phone] Apr, Attention deficit disorder F 90.0 [facility] [address] [place] [id number] [address] [place] [phone] Apr, Urinary hesitancy R39.11 ; H yperlipidemia E78.5 and Encounter for immunization Z23 [facility] [address] [facility] [id number] [address] [place] [phone] Apr, [facility] [address] [facility] [id number] [address] [place] [phone] Mar, [facility] [address] [facility] [id number] [address] [place] [phone] Jan, [facility] [address] [facility] [id number] [address] [place] [id number] Dec, [facility] [address] [facility] [id number] [address] [place] [phone] Dec, [facility] [address] [facility] [id number] [address] [place] [address] Dec, Bipolar 2 disorder F31.81 ; Attention deficit disorder F90.0 ; Posttraumatic stress disorder F43.10 and Social anxiety disorder F40.10 [facility] [address] [facility] [id number] [address] [place] [address] Dec, Scabies exposure Z20.89 and Scabies B86 [facility] [address] [facility] [id number] [address] [place] [phone] Dec, [facility] [address] [facility] [id number] [address] [place] [phone] Dec, Hypertension I10 and Gastroe sophageal reflux disease without esophagitis K21.9 [facility] [address] [facility] [id number] [address] [place] [phone] October, [facility] [address] [facility] [id number] [address] [place] [phone] October, [facility] [address] [place] [id number] [address] [place] [address] Oct, Bipolar 2 disorder F31.81 ; Posttraumatic stress disorder F43.10 ; Attention deficit disorder F90.0 and Social anxiety disorder F40.10 [facility] [address] [place] [id number] [address] [place] [phone] Oct, [facility] [address] [facility] [id number] [address] [place] [address] Oct, Hypertension I10 and Nasal c ongestion R09.81 [facility] [address] [facility] [id number] [address] [place] [phone] Aug, [facility] [address] [facility] [id number] [address] [place] [phone] Aug, [facility] [address] [facility] [id number] [address] [place] [phone] Aug, [facility] [address] [facility] [id number] [address] [place] [phone] Aug, [facility] [address] [facility] [id number] [address] [place] [phone] Aug, [facility] [address] [facility] [id number] [address] [place] [phone] Aug, Hypertension I10 and Tremor R25.1 [facility] [address] [facility] [id number] [address] [place] [address] Aug, Bipolar 2 disorder F31.81 ; Posttraumatic stress disorder F43.10 ; Attention deficit disorder F90.0 and Social anxiety disorder F40.10 [facility] [address] [facility] [id number] [address] [place] [phone] Jul, [facility] [address] [facility] [id number] [address] [place] [phone] Jul, Hyperlipidemia E78.5 [facility] [address] [place] [id number] [address] [place] [phone] Jul, Hypertension I10 and Hyperli pidemia E78.5 [facility] [address] [facility] [id number] [address] [place] [address] Jun, Bipolar 2 disorder F31.81 ; Posttraumatic stress disorder F43.10 ; Attention deficit disorder F90.0 and Social anxiety disorder F40.10 [facility] [address] [place] [id number] [address] [place] [phone] May, [facility] [address] [place] [id number] [address] [place] [phone] May, [facility] [address] [place] [id number] [address] [place] [address] Apr, Bipolar 2 disorder F31.81 ; Posttraumatic stress disorder F43.10 ; Attention deficit disorder F90.0 and Social phobia F40.10 [facility] [address] [facility] [id number] [address] [place] [address] Apr, Bipolar 2 disorder F31.81 ; Posttraumatic stress disorder F43.10 and Attention deficit disorder F90.0 [facility] [address] [id number] [address] [place] [id number] Apr, [facility] [address] [id number] [address] [place] [phone] Apr, [facility] [address] [id number] [address] [place] [phone] Apr, [facility] [address] [id number] [address] [place] [phone] Mar, [facility] [address] [id number] [address] [place] [address] Mar, [facility] [address] [id number] [address] [place] [phone] Jan, [facility] [address] [facility] [id number] [address] [place] [phone] Jan, [facility] [address] [facility] [id number] [address] [place] [address] Jan, Bipolar II disorder 296.89 ; Posttraumatic stress disorder 309.81 ; Social phobia 300.23 and Attention deficit disorder of childhood without mention of hyperactivity 314.00 [facility] [address] [facility] [id number] [address] [place] [address] Jan, Other and unspecified bipola r disorders 296.89 ; Posttraumatic stress disorder 309.81 and Attention deficit disorder of childhood without mention of hyperactivity 314.00 [facility] [address] [facility] [id number] [address] [place] [address] Jan, [facility] [address] [facility] [id number] [address] [place] [address] Dec, Other and unspecified bipola r disorders 296.89 ; Posttraumatic stress disorder 309.81 and Attention deficit disorder of childhood without mention of hyperactivity 314.00 [facility] [address] [facility] [id number] [address] [place] [address] Dec, Migraines 346.90 [facility] [address] [facility] [id number] [address] [place] [id number] Dec, Other and unspecified bipola r disorders 296.89 ; Posttraumatic stress disorder 309.81 and Attention deficit disorder of childhood without mention of hyperactivity 314.00 [facility] [address] [facility] [id number] [address] [place] [address] Dec, [facility] [address] [facility] [id number] [address] [place] [address] Dec, Bipolar II disorder 296.89 ; Social phobia 300.23 ; Posttraumatic stress disorder 309.81 and Attention deficit disorder of childhood without mention of hyperactivity 314.00 [facility] [address] [facility] [id number] [address] [place] [address] Dec, Other and unspecified bipola r disorders 296.89 ; Posttraumatic stress disorder 309.81 and Attention deficit disorder of childhood without mention of hyperactivity 314.00 [facility] [address] [facility] [id number] [address] [place] [address] October, Other and unspecified bipola r disorders 296.89 ; Posttraumatic stress disorder 309.81 and Attention deficit disorder of childhood without mention of hyperactivity 314.00 [facility] [address] [facility] [id number] [address] [place] [phone] October, [facility] [address] [facility] [id number] [address] [place] [address] October, [facility] [address] [facility] [id number] [address] [place] [phone] October, [facility] [address] [facility] [id number] [address] [place] [phone] October, [facility] [address] [facility] [id number] [address] [place] [address] October, Attention deficit disorder o f childhood without mention of hyperactivity 314.00 ; Posttraumatic stress disorder 309.81 ; Social phobia 300.23 and Other and unspecified bipolar disorders 296.89 [facility] [address] [facility] [id number] [address] [place] [phone] Oct, [facility] [address] [id number] [facility] [address] 13 Oct, 2014 [facility] [address] [id number] [facility] [address] 26 Aug, 2014 [facility] [address] [id number] [facility] [address] 26 Aug, 2014 [facility] [address] [id number] [address] [place] [address], [place] [address] 24 Aug, 2014 [facility] [address] [id number] [address] [place] [address], [place] [address] 24 Aug, 2014 [facility] [address] [id number] [address] [place] [address], [place] [address] 17 Aug, 2014 [facility] [address] [id number] [address] [place] [address], [place] [address] 17 Aug, 2014 [facility] [address] [id number] [address] [place] [address], [place] [address] 17 Aug, 2014 [facility] [address] [id number] [address] [place] [address], [place] [address] 17 Aug, 2014 [facility] [address] [id number] [address] [place] [address], [place] [address] 17 Aug, 2014 [facility] [address] [id number] [address] [place] [address], [place] [address] 17 Aug, 2014 [facility] [address] [id number] [address] [place] [address], [place] [address] 13 Aug, 2014 [facility] [address] [id number] [address] [place] [address], [place] [address] 13 Aug, 2014 [facility] [address] [id number] [address] [place] [address], [place] [address] 12 Aug, 2014 [facility] [address] [id number] [address] [place] [address], [place] [address] Aug, [facility] [address] [id number] [address] [place] [address], [place] [address] Aug, [facility] [address] [id number] [address] [place] [address], [place] [address] Aug, [facility] [address] [id number] [address] [place] [address], [place] [address] Aug, [facility] [address] [id number] [address] [place] [address], [place] [address] Aug, [facility] [address] [id number] [address] [place] [address], [place] [address] Aug, [facility] [address] [id number] [address] [place] [address], [place] [address] Aug, [facility] [address] [id number] [address] [place] [address], [place] [address] Aug, [facility] [address] [id number] [address] [place] [address], [place] [address] Aug, [facility] [address] [id number] [address] [place] [address], [place] [address] Aug, [facility] [address] [id number] [address] [place] [address], [place] [address] Aug, [facility] [address] [id number] [address] [place] [address], [place] [address] Aug, [facility] [address] [id number] [address] [place] [address], [place] [address] Aug, 2014 [facility] [address] [id number] [address] [place] [address], [place] [address] Aug, 2014 [facility] [address] [id number] [address] [place] [address], [place] [address] Aug, 2014 [facility] [address] [id number] [address] [place] [address], [place] [address] Aug, 2014 [facility] [address] [id number] [address] [place] [address], [place] [address] Aug, 2014 [facility] [address] [id number] [address] [place] [address], [place] [address] Jul, [facility] [address] [id number] [address] [place] [address], [place] [address] Jul, [facility] [address] [id number] [address] [place] [address], [place] [address] Jul, [facility] [address] [id number] [address] [place] [address], [place] [address] Jul, [facility] [address] [id number] [address] [place] [address], [place] [address] Jul, [facility] [address] [id number] [address] [place] [address], [place] [address] Jul, [facility] [address] [id number] [address] [place] [address], [place] [address] Jul, [facility] [address] [id number] [address] [place] [address], [place] [address] Jul, [facility] [address] [id number] [address] [place] [address], [place] [address] Jun, [facility] [address] [id number] [address] [place] [address], [place] [address] Jun, [facility] [address] [id number] [address] [place] [address], [place] [address] Jun, [facility] [address] [id number] [address] [place] [address], [place] [address] Jun, [facility] [address] [id number] [address] [place] [address], [place] [address] May, [facility] [address] [id number] [address] [place] [address], [place] [address] May, [facility] [address] [id number] [address] [place] [address], [place] [address] May, [facility] [address] [id number] [address] [place] [address] [address] May, [facility] [address] [facility] [id number] [address] [place] [id number] May, [facility] [address] [facility] [id number] [address] [place] [id number] Apr, [facility] [address] [facility] [id number] [address] [place] [id number] Apr, IMMUNIZATIONS No Known Immunizations SOCIAL HISTORY Never Assessed REASON FOR VISIT vyvanse 03/23/2017 PLAN OF CARE VITAL SIGNS MEDICATIONS Medication [...]
--- OUTSIDE RECORDS SUMMARY | 2019-11-11 19:14 | XMS REPORT ---
Author Author [place] [facility] Address [address] [place] [address] Care Team Providers Care Passenger Flagman Name Role Phone FLEX GUILLERMO Unavailable PROBLEMS Type Condition ICD9-CM Code XZS17-XM Code Onset Dates Condition S tatus SNOMED Code Problem Social anxiety disorder F40.10 Active 93637858 Problem Hyperlipidemia E78.5 Active 73207 004 Problem Hypertension I10 Active 2596198 3 Problem Posttraumatic stress disorder F43.10 Active 95431055 Problem Bipolar 2 disorder F31.81 Active 8 0782372 Problem Attention deficit disorder F90.0 Act shalom 434987316 Problem Lumbago with sciatica, right side M54.41 Active 424705980789619 Problem Lumbago with sciatica, left side M54.42 Active 765001942 Problem Urinary hesitancy R39.11 Active 59 17636 Problem Gastroesophageal reflux disease without esophagitis K21.9 Active 981953898 Problem Other chronic pain G89.29 Active 8 3333878 Problem Chronic post-traumatic stress disorder (PTSD) F43. 12 Active 241043410 ALLERGIES No Information ENCOUNTERS Encounter Location Date Diagnosis [facility] [address] [facility] [id number] [address] [place] [address] Oct, [facility] [address] [facility] [id number] [address] [place] [address] Oct, [facility] [address] [facility] [id number] [address] [place] [address] Aug, [facility] [address] [facility] [id number] [address] [place] [address] Aug, [facility] [address] [facility] [id number] [address] [place] [address] Jul, Strain of lumbar region, ini tial encounter S39.012A [facility] [address] [place] [id number] [address] [place] [address] Jul, Lumbago with sciatica, left side M54.42 and Lumbago with sciatica, right side M54.41 [facility] [address] [place] [id number] [address] [place] [address] Jul, Low back pain M54.5 and Othe r chronic pain G89.29 [facility] [address] [place] [id number] [place] [address] Jul, [place] [address] [address] Jul, Bipolar 2 disorder F31.81 ; Attention deficit disorder F90.0 and Social anxiety disorder F40.10 [place] [address] [address] Jun, [place] [address] [address] May, [place] [address] [address] Apr, Bipolar 2 disorder F31.81 ; Attention deficit disorder F90.0 ; Social anxiety disorder F40.10 and Chronic post-traumatic stress disorder (PTSD) F43.12 [place] [address] [address] Apr, [place] [address] [address] Apr, Hyperlipidemia E78.5 [facility] [address] [address] 27 Mar, 2017 Encounter for immunization Z 23 and Tinea cruris B35.6 [place] [address] [place] [id number] [place] [address] 15 Mar, 2017 [facility] [address] [address] Jan, [facility] [address] [id number] [address] [place] [address] Dec, [facility] [address] [id number] [address] [place] [address] Dec, [facility] [address] [id number] [address] [place] [address] Dec, Bipolar 2 disorder F31.81 ; Social anxiety disorder F40.10 and Attention deficit disorder F90.0 [facility] [address] [id number] [address] [place] [address] Dec, [facility] [address] [id number] [address] [place] [address] Dec, Hypertension I10 [facility] [address] [facility] [id number] [address] [place] [address] October, [facility] [address] [id number] [address] [place] [address] Oct, [facility] [address] [id number] [address] [place] [address] Oct, Nasal congestion R09.81 [facility] [address] [id number] [address] [place] [address] Oct, Social anxiety disorder F40. 10 ; Bipolar 2 disorder F31.81 and Attention deficit disorder F90.0 [facility] [address] [id number] [address] [place] [address] Aug, [facility] [address] [id number] [address] [place] [address] Aug, [facility] [address] [id number] [address] [place] [address] Jul, Nasal congestion R09.81 [facility] [address] [id number] [address] [place] [address] Jul, [facility] [address] [place] [id number] [address] [place] [address] Jun, Bipolar 2 disorder F31.81 ; Attention deficit disorder F90.0 ; Social anxiety disorder F40.10 and Chronic post-traumatic stress disorder (PTSD) F43.12 [facility] [address] [address] Jun, [facility] [address] [address] May, [facility] [address] [address] 14 Apr, 2016 Attention deficit disorder F 90.0 [place] [address] [address] Apr, Urinary hesitancy R39.11 ; H yperlipidemia E78.5 and Encounter for immunization Z23 [facility] [address] [address] Apr, [facility] [address] [address] Mar, [place] [address] [address] Jan, [facility] [address] [address] Dec, [facility] [address] [address] Dec, [facility] [address] [address] Dec, Bipolar 2 disorder F31.81 ; Attention deficit disorder F90.0 ; Posttraumatic stress disorder F43.10 and Social anxiety disorder F40.10 [facility] [address] [facility] [id number] [address] [place] [address] Dec, Scabies exposure Z20.89 and Scabies B86 [facility] [address] [place] [id number] [address] [place] [address] Dec, [facility] [address] [place] [id number] [place] [address] Dec, Hypertension I10 and Gastroe sophageal reflux disease without esophagitis K21.9 [facility] [address] [place] [id number] [place] [address] October, [facility] [address] [address] October, [facility] [address] [address] Oct, Bipolar 2 disorder F31.81 ; Posttraumatic stress disorder F43.10 ; Attention deficit disorder F90.0 and Social anxiety disorder F40.10 [facility] [address] [address] Oct, [facility] [address] [address] Oct, Hypertension I10 and Nasal c ongestion R09.81 [facility] [address] [address] Aug, [facility] [address] [address] Aug, [facility] [address] [address] Aug, [facility] [address] [address] Aug, [facility] [address] [address] Aug, [facility] [address] [address] Aug, Hypertension I10 and Tremor R25.1 [facility] [address] [address] Aug, Bipolar 2 disorder F31.81 ; Posttraumatic stress disorder F43.10 ; Attention deficit disorder F90.0 and Social anxiety disorder F40.10 [facility] [address] [facility] [id number] [address] [place] [address] Jul, [facility] [address] [place] [id number] [address] [place] [address] Jul, Hyperlipidemia E78.5 [facility] [address] [place] [id number] [place], [place] [address] Jul, Hypertension I10 and Hyperli pidemia E78.5 [facility] [address] [place] [id number] [place] [address] Jun, Bipolar 2 disorder F31.81 ; Posttraumatic stress disorder F43.10 ; Attention deficit disorder F90.0 and Social anxiety disorder F40.10 [facility] [address] [address] May, [facility] [address] [place] [id number] [address] [place] [address] May, [facility] [address] [address] Apr, Bipolar 2 disorder F31.81 ; Posttraumatic stress disorder F43.10 ; Attention deficit disorder F90.0 and Social phobia F40.10 [facility] [address] [address] Apr, Bipolar 2 disorder F31.81 ; Posttraumatic stress disorder F43.10 and Attention deficit disorder F90.0 [facility] [address] [place] [id number] [address] [place] [address] Apr, [facility] [address] [place] [id number] [place] [address] Apr, [facility] [address] [address] Apr, [facility] [address] [facility] [id number] [address] [place] [address] Mar, [facility] [address] [facility] [id number] [address] [place] [address] Mar, [facility] [address] [facility] [id number] [address] [place] [address] Jan, [facility] [address] [facility] [id number] [address] [place] [address] Jan, [facility] [address] [facility] [id number] [address] [place] [address] Jan, Bipolar II disorder 296.89 ; Posttraumatic stress disorder 309.81 ; Social phobia 300.23 and Attention deficit disorder of childhood without mention of hyperactivity 314.00 [facility] [address] [facility] [id number] [address] [place] [address] Jan, Other and unspecified bipola r disorders 296.89 ; Posttraumatic stress disorder 309.81 and Attention deficit disorder of childhood without mention of hyperactivity 314.00 [facility] [address] [facility] [id number] [address] [place] [address] Jan, [facility] [address] [facility] [id number] [address] [place] [address] Dec, Other and unspecified bipola r disorders 296.89 ; Posttraumatic stress disorder 309.81 and Attention deficit disorder of childhood without mention of hyperactivity 314.00 [facility] [address] [facility] [id number] [address] [place] [address] Dec, Migraines 346.90 [facility] [address] [facility] [id number] [address] [place] [address] Dec, Other and unspecified bipola r disorders 296.89 ; Posttraumatic stress disorder 309.81 and Attention deficit disorder of childhood without mention of hyperactivity 314.00 [facility] [address] [facility] [id number] [address] [place] [address] Dec, [facility] [address] [facility] [id number] [address] [place] [address] Dec, Bipolar II disorder 296.89 ; Social phobia 300.23 ; Posttraumatic stress disorder 309.81 and Attention deficit disorder of childhood without mention of hyperactivity 314.00 [facility] [address] [facility] [id number] [address] [place] [address] Dec, Other and unspecified bipola r disorders 296.89 ; Posttraumatic stress disorder 309.81 and Attention deficit disorder of childhood without mention of hyperactivity 314.00 [facility] [address] [id number] [address] [place] [address] October, Other and unspecified bipola r disorders 296.89 ; Posttraumatic stress disorder 309.81 and Attention deficit disorder of childhood without mention of hyperactivity 314.00 [facility] [address] [facility] [id number] [address] [place] [address] October, [facility] [address] [facility] [id number] [address] [place] [address] October, [facility] [address] [facility] [id number] [address] [place] [address] October, [facility] [address] [id number] [address] [place] [address] October, [facility] [address] [facility] [id number] [address] [place] [address] October, Attention deficit disorder o f childhood without mention of hyperactivity 314.00 ; Posttraumatic stress disorder 309.81 ; Social phobia 300.23 and Other and unspecified bipolar disorders 296.89 [facility] [address] [facility] [id number] [address] [place] [address] Oct, [facility] [address] [id number] [address] [place] [address] Oct, [facility] [address] [facility] [id number] [address] [place] [address] Aug, [facility] [address] [facility] [id number] [address] [place] [address] Aug, [facility] [address] [id number] [facility] [place] [address] 24 Aug, 2014 [facility] [address] [id number] [facility] [place] [address] 24 Aug, 2014 [facility] [address] [id number] [facility] [place] [address] 17 Aug, 2014 [facility] [address] [id number] [facility] [place] [address] 17 Aug, 2014 [facility] [address] [id number] [facility] [place] [address] 17 Aug, 2014 [facility] [address] [id number] [address] [place] [address], [place] [address] 17 Aug, 2014 [facility] [address] [id number] [address] [place] [address], [place] [address] 17 Aug, 2014 [facility] [address] [id number] [address] [place] [address], [place] [address] 17 Aug, 2014 [facility] [address] [id number] [address] [place] [address], [place] [address] 13 Aug, 2014 [facility] [address] [id number] [address] [place] [address], [place] [address] 13 Aug, 2014 [facility] [address] [id number] [address] [place] [address], [place] [address] 12 Aug, 2014 [facility] [address] [id number] [address] [place] [address], [place] [address] 12 Aug, 2014 [facility] [address] [id number] [address] [place] [address], [place] [address] Aug, [facility] [address] [id number] [address] [place] [address], [place] [address] Aug, [facility] [address] [id number] [address] [place] [address], [place] [address] Aug, [facility] [address] [id number] [address] [place] [address], [place] [address] Aug, [facility] [address] [id number] [address] [place] [address], [place] [address] Aug, [facility] [address] [id number] [address] [place] [address], [place] [address] Aug, [facility] [address] [id number] [address] [place] [address], [place] [address] Aug, [facility] [address] [id number] [address] [place] [address], [place] [address] Aug, [facility] [address] [id number] [address] [place] [address], [place] [address] Aug, [facility] [address] [id number] [address] [place] [address], [place] [address] Aug, [facility] [address] [id number] [address] [place] [address], [place] [address] Aug, [facility] [address] [id number] [address] [place] [address], [place] [address] Aug, [facility] [address] [id number] [address] [place] [address], [place] [address] Aug, [facility] [address] [id number] [address] [place] [address], [place] [address] Aug, [facility] [address] [id number] [address] [place] [address], [place] [address] Aug, [facility] [address] [id number] [address] [place] [address], [place] [address] Aug, [facility] [address] [id number] [address] [place] [address], [place] [address] Jul, [facility] [address] [id number] [address] [place] [address], [place] [address] Jul, [facility] [address] [id number] [address] [place] [address], [place] [address] Jul, [facility] [address] [id number] [address] [place] [address], [place] [address] Jul, [facility] [address] [id number] [address] [place] [address], [place] [address] Jul, [facility] [address] [id number] [address] [place] [address], [place] [address] Jul, [facility] [address] [id number] [address] [place] [address], [place] [address] Jul, [facility] [address] [id number] [address] [place] [address], [place] [address] Jul, [facility] [address] [id number] [address] [place] [address], [place] [address] Jun, [facility] [address] [id number] [address] [place] [address], [place] [address] Jun, [facility] [address] [id number] [address] [place] [address], [place] [address] Jun, [facility] [address] [id number] [address] [place] [address], [place] [address] Jun, [facility] [address] [id number] [address] [place] [address], [place] [address] May, [facility] [address] [id number] [address] [place] [address], [place] [address] May, [facility] [address] [id number] [address] [place] [address], [place] [address] May, [facility] [address] [id number] [address] [place] [address], [place] [address] May, [facility] [address] [id number] [address] [place] [address], [place] [address] May, [facility] [address] [id number] [address] [place] [address], [place] [address] Apr, [facility] [address] [id number] [address] [place] [address] Apr, IMMUNIZATIONS No Known Immunizations SOCIAL HISTORY Never Assessed REASON FOR VISIT Adzenys script PLAN OF CARE VITAL SIGNS MEDICATIONS Medication Instructions Dosage Frequency Start Date End Date Duration S lion Adzenys XR-ODT 12.5 MG Orally Once a day for ADHD 1 tablet in the m orning Dec, 30 days Active RESULTS No Results PROCEDURES No Known procedures INSTRUCTIONS MEDICATIONS ADMINISTERED No Known Medications MEDICAL (GENERAL) HISTORY Type Description Date Medical History Hypertension Medical History GERD Medical History Bipolar Surgical History Hernia right ingual Surgical History Colonoscopy october 2014 Hospitalization History surgeries Hospitalization History ER for dehydration and vomitting 10/04/15
--- OUTSIDE RECORDS SUMMARY | 2019-11-11 19:14 | XMS REPORT ---
Author [place] [facility] eClinicalWorks Address Unknown Phone Unavailable Care Team Providers Care Furniture Builder Name Role Phone FALLON JOHNSON CP Unavailable [...] Problem Blood in stool 578.1 Active Assessment Nasal congestion R09.81 Active Problem Reflux esophagitis 530.11 Active Medications Medication Code System Code Instructions Start Date End Date Status Dosage Aspirin [facility] [address]-63 325 mg May 01, 2014 1 ta blet by Oral route 1 time per day Lamictal [facility] [address]-86 100 MG Orally Once at night Apr 21, 2015 1 tablets Lisinopril [facility] [address]-87 20 MG Orally Once a day Jul 07, 2015 1 tablet Sudafed [facility] [address]-80 60 mg Orally every 6 hrs October 08, 2015 1 tablet as needed Vitamin C [facility] [address]-93 500 mg May 01, 2014 1 tablet by Oral route 1 time per day Viagra [facility] [address]-70 50 MG Orally PRN November 04, 2014 1 tablet as needed Colace [facility] [address]-34 100 mg May 01, 2014 1 ca psule by Oral route 2 times per day PRN Adderall [facility] [address]-07 20 MG Orally in the AM & 1pm for ADHD Dr. Johnson to sign for Rafaela September 16, 2014 1 tablet Atorvastatin Calcium [facility] [address]-67 20 MG Orally Once a day Aug 032015 1 tablet Skelaxin [facility] [address]-58 800 mg September 11, 2014 1 Tablet by Oral route 3- 4 times per day PRN muscle spasm Vitamin D3 [facility] [address]-51 32791 UNIT Orally Once a day May 01 14 2 Capsule 1 time per day take one tablet orally daily Omeprazole [facility] [address]-46 20 MG Orally Once a day May 01, 2014 1 capsule Multivitamin [facility] [address] May 01, 2014 1 tablet by Oral route 1 time per day Anusol-HC [facility] [address]-11 25 mg September 23, 2014 b y Rectal route 2 times per day Procedures Procedure Coding System Code Date Office Visit, Est Pt., Level 2 CPT-4 57995 A [facility] 2015 Vital Signs Date/Time: October 08, 2015 Temperature 97.8 F Weight 146.7 lbs Height 64 in BMI 25.18 Index Blood Pressure Diastolic 88 mmHg Blood Pressure Systolic 112 mmHg Cardiac Monitoring Heart Rate 120 bpm Results No Known Results Summary Purpose eClinicalWorks Submission
--- OUTSIDE RECORDS SUMMARY | 2019-11-11 19:14 | XMS REPORT ---
Author Author [place] Organization [facility] Address [address] [place] [address] Care Team Providers Care Train Planner Name Role Phone FALLON JOHNSON Unavailable PROBLEMS Type Condition ICD9-CM Code [id number] Code Onset Dates Condition S tatus SNOMED Code Problem Posttraumatic stress disorder F43.10 Active 98166327 Problem Attention deficit disorder F90.0 Act shalom 910098423 Problem Bipolar 2 disorder F31.81 Active 8 9451379 Problem Chronic post-traumatic stress disorder (PTSD) F43. 12 Active 264817373 Problem Urinary hesitancy R39.11 Active 59 04436 Problem Hyperlipidemia E78.5 Active 02047 004 Problem Social anxiety disorder F40.10 Active 98411617 Problem Gastroesophageal reflux disease without esophagitis K21.9 Active 945515934 Problem Hypertension I10 Active 1068683 3 ALLERGIES Unknown Allergies SOCIAL HISTORY No smoking Hx information available PLAN OF CARE VITAL SIGNS MEDICATIONS Medication Instructions Dosage Frequency Start Date End Date Duration S tatus Sudafed 60 mg Orally every 6 hrs 1 tablet as needed 6h Oct, Active RESULTS No Results PROCEDURES No Known procedures IMMUNIZATIONS No Known Immunizations
--- OUTSIDE RECORDS SUMMARY | 2019-11-11 19:15 | XMS REPORT ---
Author Author [place] [facility] Address [address] [place] [address] Care Team Providers Care Highway Design Engineer Name Role Phone DIAZNIKLANE Unavailable PROBLEMS Type Condition ICD9-CM Code KSH67-SZ Code Onset Dates Condition S tatus SNOMED Code Problem Social anxiety disorder F40.10 Active 30755964 Problem Hyperlipidemia E78.5 Active 79924 004 Problem Hypertension I10 Active 6512778 3 Problem Posttraumatic stress disorder F43.10 Active 42103800 Problem Bipolar 2 disorder F31.81 Active 8 3447887 Problem Attention deficit disorder F90.0 Act shalom 685305068 Problem Lumbago with sciatica, right side M54.41 Active [id number] Problem Lumbago with sciatica, left side M54.42 Active 940365885 Problem Urinary hesitancy R39.11 Active 59 92469 Problem Gastroesophageal reflux disease without esophagitis K21.9 Active 940111066 Problem Other chronic pain G89.29 Active 8 7951488 Problem Chronic post-traumatic stress disorder (PTSD) F43. 12 Active 514510710 ALLERGIES Substance Reaction Event Type Date Status Codeine Sulfate disoriented Drug Allergy Jul, Active ENCOUNTERS Encounter Location Date Diagnosis [facility] [address] [facility] [id number] [address] [place] [id number] Dec, [facility] [address] [facility] [id number] [address] [place] [address] Dec, Upper respiratory tract infe ction, unspecified type J06.9 [facility] [address] [facility] [id number] [address] [place] [address] October, [facility] [address] [facility] [id number] [address] [place] [address] Oct, Bipolar 2 disorder F31.81 ; Attention deficit disorder F90.0 ; Social anxiety disorder F40.10 and Chronic post-traumatic stress disorder (PTSD) F43.12 [facility] [address] [id number] [address] [place] [address] Oct, [facility] [address] [id number] [address] [place] [address] Oct, [facility] [address] [id number] [address] [place] [address] Aug, [facility] [address] [id number] [address] [place] [address] Aug, [facility] [address] [facility] [id number] [address] [place] [address] Jul, Strain of lumbar region, ini tial encounter S39.012A [facility] [address] [id number] [address] [place] [address] Jul, Lumbago with sciatica, left side M54.42 and Lumbago with sciatica, right side M54.41 [facility] [address] [id number] [address] [place] [address] Jul, Low back pain M54.5 and Othe r chronic pain G89.29 [facility] [address] [id number] [address] [place] [address] Jul, [facility] [address] [facility] [id number] [address] [place] [address] Jul, Bipolar 2 disorder F31.81 ; Attention deficit disorder F90.0 and Social anxiety disorder F40.10 [facility] [address] [id number] [address] [place] [address] Jun, [facility] [address] [facility] [id number] [address] [place] [address] May, [facility] [address] [facility] [id number] [address] [place] [address] Apr, Bipolar 2 disorder F31.81 ; Attention deficit disorder F90.0 ; Social anxiety disorder F40.10 and Chronic post-traumatic stress disorder (PTSD) F43.12 [facility] [address] [facility] [id number] [address] [place] [address] Apr, [facility] [address] [facility] [id number] [address] [place] [address] Apr, Hyperlipidemia E78.5 [facility] [address] [id number] [address] [place] [address] Mar, Encounter for immunization Z 23 and Tinea cruris B35.6 [facility] [address] [facility] [id number] [address] [place] [address] Mar, [facility] [address] [facility] [id number] [address] [place] [address] Jan, [facility] [address] [facility] [id number] [address] [place] [address] Dec, [facility] [address] [facility] [id number] [address] [place] [address] Dec, [facility] [address] [facility] [id number] [address] [place] [address] Dec, Bipolar 2 disorder F31.81 ; Social anxiety disorder F40.10 and Attention deficit disorder F90.0 [facility] [address] [facility] [id number] [address] [place] [id number] Dec, [facility] [address] [facility] [id number] [address] [place] [address] Dec, Hypertension I10 [facility] [address] [facility] [id number] [address] [place] [address] October, [facility] [address] [facility] [id number] [address] [place] [address] Oct, [facility] [address] [facility] [id number] [address] [place] [address] Oct, Nasal congestion R09.81 [facility] [address] [facility] [id number] [address] [place] [address] Oct, Social anxiety disorder F40. 10 ; Bipolar 2 disorder F31.81 and Attention deficit disorder F90.0 [facility] [address] [id number] [address] [place] [address] Aug, [facility] [address] [facility] [id number] [address] [place] [address] Aug, [facility] [address] [facility] [id number] [address] [place] [address] Jul, Nasal congestion R09.81 [facility] [address] [facility] [id number] [address] [place] [address] Jul, [facility] [address] [facility] [id number] [address] [place] [address] Jun, Bipolar 2 disorder F31.81 ; Attention deficit disorder F90.0 ; Social anxiety disorder F40.10 and Chronic post-traumatic stress disorder (PTSD) F43.12 [facility] [address] [facility] [id number] [address] [place] [address] Jun, [facility] [address] [place] [id number] [address] [place] [address] May, [facility] [address] [place] [id number] [address] [place] [address] 14 Apr, 2016 Attention deficit disorder F 90.0 [facility] [address] [place] [id number] [address] [place] [address] 10 Apr, 2016 Urinary hesitancy R39.11 ; H yperlipidemia E78.5 and Encounter for immunization Z23 [facility] [address] [place] [id number] [address] [place] [id number] 03 Apr, 2016 [facility] [address] [facility] [id number] [address] [place] [phone] 16 Mar, 2016 [facility] [address] [place] [id number] [address] [place] [phone] Jan, [facility] [address] [facility] [id number] [address] [place] [address] Dec, [facility] [address] [facility] [id number] [address] [place] [address] Dec, [facility] [address] [facility] [id number] [address] [place] [address] Dec, Bipolar 2 disorder F31.81 ; Attention deficit disorder F90.0 ; Posttraumatic stress disorder F43.10 and Social anxiety disorder F40.10 [facility] [address] [facility] [id number] [address] [place] [address] Dec, Scabies exposure Z20.89 and Scabies B86 [facility] [address] [facility] [id number] [address] [place] [address] Dec, [facility] [address] [facility] [id number] [address] [place] [address] Dec, Hypertension I10 and Gastroe sophageal reflux disease without esophagitis K21.9 [facility] [address] [facility] [id number] [address] [place] [address] October, [facility] [address] [facility] [id number] [address] [place] [address] October, [facility] [address] [facility] [id number] [address] [place] [address] Oct, Bipolar 2 disorder F31.81 ; Posttraumatic stress disorder F43.10 ; Attention deficit disorder F90.0 and Social anxiety disorder F40.10 [facility] [address] [facility] [id number] [address] [place] [address] Oct, [facility] [address] [facility] [id number] [address] [place] [address] Oct, Hypertension I10 and Nasal c ongestion R09.81 [facility] [address] [facility] [id number] [address] [place] [phone] Aug, [facility] [address] [phone] Aug, [facility] [address] [id number] Aug, [facility] [address] [place] [id number] [place] [phone] Aug, [facility] [address] [address] Aug, [facility] [address] [address] Aug, Hypertension I10 and Tremor R25.1 [facility] [address] [address] Aug, Bipolar 2 disorder F31.81 ; Posttraumatic stress disorder F43.10 ; Attention deficit disorder F90.0 and Social anxiety disorder F40.10 [facility] [address] [address] Jul, [facility] [address] [address] Jul, Hyperlipidemia E78.5 [facility] [address] [address] Jul, Hypertension I10 and Hyperli pidemia E78.5 [facility] [address] [address] Jun, Bipolar 2 disorder F31.81 ; Posttraumatic stress disorder F43.10 ; Attention deficit disorder F90.0 and Social anxiety disorder F40.10 [facility] [address] [address] May, [facility] [address] [address] May, [facility] [address] [id number] Apr, Bipolar 2 disorder F31.81 ; Posttraumatic stress disorder F43.10 ; Attention deficit disorder F90.0 and Social phobia F40.10 [facility] [address] [id number] [address] [place] [address] Apr, Bipolar 2 disorder F31.81 ; Posttraumatic stress disorder F43.10 and Attention deficit disorder F90.0 [facility] [address] [id number] [address] [place] [address] Apr, [facility] [address] [id number] [address] [place] [phone] Apr, [facility] [address] [id number] [address] [place] [phone] Apr, [facility] [address] [id number] [address] [place] [phone] Mar, [facility] [address] [id number] [address] [place] [phone] Mar, [facility] [address] [id number] [address] [place] [address] Jan, [facility] [address] [id number] [address] [place] [phone] Jan, [facility] [address] [id number] [address] [place] [address] Jan, Bipolar II disorder 296.89 ; Posttraumatic stress disorder 309.81 ; Social phobia 300.23 and Attention deficit disorder of childhood without mention of hyperactivity 314.00 [facility] [address] [id number] [address] [place] [address] Jan, Other and unspecified bipola r disorders 296.89 ; Posttraumatic stress disorder 309.81 and Attention deficit disorder of childhood without mention of hyperactivity 314.00 [facility] [address] [id number] [address] [place] [address] Jan, [facility] [address] [id number] [address] [place] [address] Dec, Other and unspecified bipola r disorders 296.89 ; Posttraumatic stress disorder 309.81 and Attention deficit disorder of childhood without mention of hyperactivity 314.00 [facility] [address] [facility] [id number] [address] [place] [address] Dec, Migraines 346.90 [facility] [address] [facility] [id number] [address] [place] [address] Dec, Other and unspecified bipola r disorders 296.89 ; Posttraumatic stress disorder 309.81 and Attention deficit disorder of childhood without mention of hyperactivity 314.00 [facility] [address] [facility] [id number] [address] [place] [address] Dec, [facility] [address] [facility] [id number] [address] [place] [address] Dec, Bipolar II disorder 296.89 ; Social phobia 300.23 ; Posttraumatic stress disorder 309.81 and Attention deficit disorder of childhood without mention of hyperactivity 314.00 [facility] [address] [facility] [id number] [address] [place] [address] Dec, Other and unspecified bipola r disorders 296.89 ; Posttraumatic stress disorder 309.81 and Attention deficit disorder of childhood without mention of hyperactivity 314.00 [facility] [address] [facility] [id number] [address] [place] [address] October, Other and unspecified bipola r disorders 296.89 ; Posttraumatic stress disorder 309.81 and Attention deficit disorder of childhood without mention of hyperactivity 314.00 [facility] [address] [facility] [id number] [address] [place] [phone] October, [facility] [address] [facility] [id number] [address] [place] [address] October, [facility] [address] [facility] [id number] [address] [place] [address] October, [facility] [address] [facility] [id number] [address] [place] [address] October, [facility] [address] [id number] [address] [place] [address] October, Attention deficit disorder o f childhood without mention of hyperactivity 314.00 ; Posttraumatic stress disorder 309.81 ; Social phobia 300.23 and Other and unspecified bipolar disorders 296.89 [facility] [address] [id number] [address] [place] [id number] Oct, [facility] [address] [id number] [address] [place] [phone] Oct, [facility] [address] [id number] [address] [place] [phone] Aug, [facility] [address] [id number] [address] [place] [address] Aug, [facility] [address] [id number] [address] [place] [address] Aug, [facility] [address] [id number] [address] [place] [phone] Aug, [facility] [address] [id number] [address] [place] [address] Aug, [facility] [address] [id number] [address] [place] [address] Aug, [facility] [address] [id number] [address] [place] [address] Aug, [facility] [address] [id number] [address] [place] [address] Aug, [facility] [address] [id number] [address] [place] [phone] Aug, [facility] [address] [id number] [address] [place] [address] Aug, [facility] [address] [id number] [address] [place] [address] Aug, [facility] [address] [id number] [address] [place] [phone] 13 Aug, 2014 [facility] [address] [id number] [facility] [place] [address] Aug, [facility] [address] [id number] [address] [place] [address], [place] [address] Aug, [facility] [address] [id number] [address] [place] [address], [place] [address] Aug, [facility] [address] [id number] [address] [place] [address], [place] [address] Aug, [facility] [address] [id number] [address] [place] [address], [place] [address] Aug, [facility] [address] [id number] [address] [place] [address], [place] [address] Aug, [facility] [address] [id number] [address] [place] [address], [place] [address] Aug, [facility] [address] [id number] [address] [place] [address], [place] [address] Aug, [facility] [address] [id number] [address] [place] [address], [place] [address] Aug, [facility] [address] [id number] [address] [place] [address], [place] [address] Aug, [facility] [address] [id number] [address] [place] [address], [place] [address] Aug, [facility] [address] [id number] [address] [place] [address], [place] [address] Aug, [facility] [address] [id number] [address] [place] [address], [place] [address] Aug, [facility] [address] [id number] [address] [place] [address], [place] [address] Aug, [facility] [address] [id number] [address] [place] [address], [place] [address] Aug, [facility] [address] [id number] [address] [place] [address], [place] [address] Aug, [facility] [address] [id number] [address] [place] [address], [place] [address] Aug, [facility] [address] [id number] [address] [place] [address], [place] [address] Aug, [facility] [address] [id number] [address] [place] [address], [place] [address] Jul, [facility] [address] [id number] [address] [place] [address], [place] [address] Jul, [facility] [address] [id number] [address] [place] [address], [place] [address] Jul, [facility] [address] [id number] [address] [place] [address], [place] [address] Jul, [facility] [address] [id number] [address] [place] [address], [place] [address] Jul, [facility] [address] [id number] [address] [place] [address], [place] [address] Jul, [facility] [address] [id number] [address] [place] [address], [place] [address] Jul, [facility] [address] [id number] [address] [place] [address], [place] [address] Jul, [facility] [address] [id number] [address] [place] [address], [place] [address] Jun, [facility] [address] [id number] [address] [place] [address], [place] [address] Jun, [facility] [address] [id number] [address] [place] [address], [place] [address] Jun, [facility] [address] [id number] [address] [place] [address], [place] [address] Jun, [facility] [address] [id number] [address] [address] May, [facility] [address] [id number] [address] [place] [address] May, [facility] [facility] [address] [id number] [address] [place] [phone] May, [facility] [address] [id number] [address] [place] [phone] May, [facility] [address] [id number] [address] [place] [phone] May, [facility] [address] [id number] [address] [place] [phone] Apr, [facility] [address] [facility] [id number] [address] [place] [phone] Apr, IMMUNIZATIONS No Known Immunizations SOCIAL HISTORY Never Assessed REASON FOR VISIT lower back pain that shoots up his spine to his skull causing him to have a head ache. pt has chronic back pain but 2 hours ago...he bent over and now his back h urts. kbullardynaeth PLAN OF CARE Activity Details Follow Up prn Reason: VITAL SIGNS Height 64 in 2017-07-09 Weight 162.8 lbs 2017-07-09 Temperature 97.8 degrees Fahrenheit 2017-07-09 Heart Rate 80 bpm 2017-07-09 Respiratory Rate 20 2017-07-09 BMI 27.94 kg/m2 2017-07-09 Blood pressure systolic 128 mmHg 2017-07-09 Blood pressure diastolic 76 mmHg 2017-07-09 MEDICATIONS Medication Instructions Dosage Frequency Start Date End Date Duration S tatus Colace 100 mg 1 capsule by Oral route 2 times per day PRN Apr, Active Anusol-HC 25 mg by Rectal route 2 times per day Aug, Active Multivitamin 1 tablet by Oral route 1 time per day 2013 Active Vitamin C 500 mg 1 tablet by Oral route 1 time per day 3 0 Apr, 2014 Active Vitamin D3 5000 UNIT Orally Once a day 1 capsule 24h Apr, Active Skelaxin 800 mg 1 Tablet by Oral route 3-4 times per d ay PRN muscle spasm Aug, Not-Taking Vyvanse 30 MG Orally Once a day for ADHD 1 capsule in the morning Jun, 28 days Active Hydrocodone-Acetaminophen 5-325 MG Orally every 6 hrs 1 tablet as n eeded 6h Jul, Jul, 4 days Active Atorvastatin Calcium 20 MG Orally Once a day 1 tablet 24h 30 Active Omeprazole 20 MG TAKE ONE CAPSULE BY MOUTH ONCE DAILY 30 Active Lisinopril 20 MG Orally Once a day 1 tablet 24h 30 Active Pseudoephedrine HCl 60 mg Orally every 6 hrs 1 tablet as needed 6h Oct, 8 days Not-Taking PredniSONE 50 MG Orally Once a day 1 tablet 24h Jul, Jul, 5 days Active Aspirin 325 mg 1 tablet by Oral route 1 time per day Apr, Active HydrOXYzine Pamoate 25 MG Orally 2 times a day as need for a nxiety 1 capsule as needed Jun, Not-Taking Lamotrigine 200 mg Orally in the evening for depression 1 tablet Active Viagra 50 MG Orally PRN 1 tablet as needed October, Not-Taking Baclofen 10 MG Orally Once a day 1 tablet with food or milk 24h Jul, Jul, 5 days Active RESULTS No Results PROCEDURES No Known procedures INSTRUCTIONS MEDICATIONS ADMINISTERED No Known Medications MEDICAL (GENERAL) HISTORY Type Description Date Medical History Hypertension Medical History GERD Medical History Bipolar Surgical History Hernia right ingual Surgical History Colonoscopy october 2014 Hospitalization History surgeries Hospitalization History ER for dehydration and vomitting 10/04/15
--- OUTSIDE RECORDS SUMMARY | 2019-11-11 19:15 | XMS REPORT ---
Author Author [place] MCC[place] Organization [facility] Address [address] [place] [address] Care Team Providers Care Shared Services And Outsourcing Manager Name Role Phone GUILLERMO MCCORD Unavailable PROBLEMS Type Condition ICD9-CM Code [id number] Code Onset Dates Condition S tatus SNOMED Code Problem Attention deficit disorder F90.0 Act shalom 006265034 Problem Bipolar 2 disorder F31.81 Active 8 3932899 Problem Posttraumatic stress disorder F43.10 Active 98808272 Problem Chronic post-traumatic stress disorder (PTSD) F43. 12 Active 828455325 Problem Urinary hesitancy R39.11 Active 59 96093 Problem Hyperlipidemia E78.5 Active 27830 004 Problem Social anxiety disorder F40.10 Active 84406500 Problem Gastroesophageal reflux disease without esophagitis K21.9 Active 924507273 Problem Hypertension I10 Active 0820176 3 ALLERGIES Unknown Allergies SOCIAL HISTORY No smoking Hx information available PLAN OF CARE VITAL SIGNS MEDICATIONS Medication Instructions Dosage Frequency Start Date End Date Duration S tatus Adderall 20 mg Orally in the AM &1pm for ADHD 1 tablet Jun, 016 Active Adderall 5 mg Orally at 4pm for ADHD 1 tablet Jun, Active RESULTS No Results PROCEDURES No Known procedures IMMUNIZATIONS No Known Immunizations
--- OUTSIDE RECORDS SUMMARY | 2019-11-11 19:15 | XMS REPORT ---
Author [place] Jaffe [employer] Address Unknown Phone Unavailable Care Team Providers Care Leak Detection Engineer Name Role Phone GUILLERMO MCCORD CP Unavailable [...] Start Date End Date Status Dosage Adderall [facility] [address]-04 20 mg Orally in the AM &1pm for A DHD September 16, 2014 1 tablet Adderall [facility] [address]-27 5 mg Orally at 4pm for ADHD January 14, 2016 1 tablet Results No Known Results Summary Purpose eClinical[employer] Submission
--- OUTSIDE RECORDS SUMMARY | 2019-11-11 19:15 | XMS REPORT ---
Author [place] Organization [employer] Address Unknown Phone Unavailable Care Team Providers Care Crushing Machine Operator Name Role Phone FALLON JOHNSON CP Unavailable [...] Problem Bipolar 2 disorder F31.81 Active Medications No Known Medications Results No Known Results Summary Purpose eClinicalWorks Submission
--- OUTSIDE RECORDS SUMMARY | 2019-11-11 19:15 | XMS REPORT ---
Author [place] Jaffe [employer] Address Unknown Phone Unavailable Care Team Providers Care [employer] Certified [employer] Professional Name Role Phone GUILLERMO MCCORD CP Unavailable [...] Other malaise and fatigue 780.79 Ac tive Assessment Social phobia F40.10 Active Assessment Attention deficit disorder F90.0 A ctive Assessment Posttraumatic stress disorder F43.10 Active Assessment Bipolar 2 disorder F31.81 Active Medications Medication Code System Code Instructions Start Date End Date Status Dosage Viagra [facility] [address]-54 50 MG Orally PRN November 04, 2014 1 tablet as needed Adderall [facility] [address]-82 20 MG Orally in the AM & 1pm for ADHD Dr. Barron to sign for Rafaela September 16, 2014 1 tablet Aspirin [facility] [address]-78 325 mg May 01, 2014 1 ta blet by Oral route 1 time per day Omeprazole [facility] [address]-08 20 mg May 01, 2014 ta ke 1 capsule (20 mg) by oral route once daily before a meal Lamictal [facility] [address]-49 25 MG Orally 1 t ab at HS for 14 days then increase to 2 tabs at HS for 14 days. Apr 21, 2015 1 tabl et Vitamin C [facility] [address]-44 500 mg May 01, 2014 1 tablet by Oral route 1 time per day atorvastatin NDC 0 20 mg Once a day May 01, 2014 take 1 tablet by Oral route 1 time per day QHS; Avoid grapefruit juice Skelaxin [facility] [address]-50 800 mg September 11, 2014 1 Tablet by Oral route 3- 4 times per day PRN muscle spasm Multivitamin [facility] 01471-33715 May 01, 2014 1 tablet by Oral route 1 time per day Colace [facility] [address]-76 100 mg May 01, 2014 1 ca psule by Oral route 2 times per day PRN Vitamin D3 [facility] 36623-[address]12 1,000 unit May 01, 2014 2 Capsule 1 time per day take one tablet orally daily Lamictal [facility] [address]-88 100 MG Orally Once a day. S tart 05/20/15 Apr 21, 2015 1 tablets BuPROPion HCl [facility] [address]-53 100 MG Orally Twice a day September 11, 2014 1 tablet BusPIRone HCl [facility] [address]-99 30 MG Orally Twice a day for anxiety 1 tablet Anusol-HC [facility] [address]-29 25 mg September 23, 2014 b y Rectal route 2 times per day Propranolol HCl [facility] [address]-65 10 MG Orally Once a day November 05 1 tablet Latuda [facility] 45667824708 20MG Orally Once a day 1 tablet by Oral route 1 time per day in the evening with 350 kcal Guanfacine HCl [facility] [address]-80 2 MG Orally Once at HS 1 tablet 1 time per day Procedures Procedure Coding System Code Date MH Office Visit, Est Pt., Level 4 CPT-4 [id number] Apr 21, 2015 Vital Signs Date/Time: Apr 21, 2015 Cardiac Monitoring Heart Rate 96 bpm Weight 147.0 lbs Height 64 in BMI 25.23 Index Blood Pressure Diastolic 100 mmHg Blood Pressure Systolic 130 mmHg Results No Known Results Summary Purpose eClinicalWorks Submission
--- OUTSIDE RECORDS SUMMARY | 2019-11-11 19:15 | XMS REPORT ---
Author [place]affe [employer] Address Unknown Phone Unavailable Care Team Providers Care Starchmaker Name Role Phone GUILLERMO MCCORD CP Unavailable Allergies No Known Allergies Problems Problem Type Condition Code Onset Dates Condition Statu s Problem Attention deficit disorder F90.0 A ctive Assessment Attention deficit disorder F90.0 A ctive Problem Gastroesophageal reflux disease without esophagitis K2 1.9 Active Problem Hypertension I10 Active Problem Urinary hesitancy R39.11 Active Problem Bipolar 2 disorder F31.81 Active Problem Posttraumatic stress disorder F43.10 Active Problem Hyperlipidemia E78.5 Active Problem Social anxiety disorder F40.10 Acti ve Medications Medication Code System Code Instructions Start Date End Date Status Dosage Vitamin D3 [facility] [address]-18 5000 UNIT Orally Once a day May 01 4 2 Capsule 1 time per day take one tablet orally daily Aspirin [facility] [address]-30 325 mg May 01, 2014 1 ta blet by Oral route 1 time per day Adderall [facility] [address]-87 20 mg Orally in the AM &1pm for A DHD September 16, 2014 1 tablet Atorvastatin Calcium [facility] 75563067365 20 MG Orally Once a day 1 tablet Adderall [facility] [address]-78 5 mg Orally at 4pm for ADHD January 14, 2016 1 tablet Anusol-HC [facility] [address]-30 25 mg September 23, 2014 b y Rectal route 2 times per day Viagra [facility] [address]-71 50 MG Orally PRN November 04, 2014 1 tablet as needed Sudafed [facility] [address]-01 60 mg Orally every 6 hrs October 08, 2015 1 tablet as needed Lisinopril [facility] [address]-25 20 MG Orally Once a day Jul 07, 2015 1 tablet Omeprazole [facility] [address]-29 20 mg Orally Once a day May 01, 2014 1 capsule Vitamin C [facility] [address]-59 500 mg May 01, 2014 1 tablet by Oral route 1 time per day Lamotrigine [facility] 65207309444 100 MG TAKE ON E TABLET BY MOUTH IN THE EVENING Colace [facility] [address]-40 100 mg May 01, 2014 1 ca psule by Oral route 2 times per day PRN Multivitamin [facility] [address] May 01, 2014 1 tablet by Oral route 1 time per day Skelaxin [facility] [address]-24 800 mg September 11, 2014 1 Tablet by Oral route 3- 4 times per day PRN muscle spasm Results No Known Results Summary Purpose eClinicalWorks Submission
--- OUTSIDE RECORDS SUMMARY | 2019-11-11 19:15 | XMS REPORT ---
Author Author [place] Organization [facility] Address [address] [place] [address] Care Team Providers Care Mental Health Associate Name Role Phone FLEX GUILLERMO Unavailable PROBLEMS Type Condition ICD9-CM Code [id number] Code Onset Dates Condition S tatus SNOMED Code Problem Social anxiety disorder F40.10 Active 36758208 Problem Hyperlipidemia E78.5 Active 60566 004 Problem Hypertension I10 Active 4611088 3 Problem Posttraumatic stress disorder F43.10 Active 56214505 Problem Bipolar 2 disorder F31.81 Active 8 1412175 Problem Attention deficit disorder F90.0 Act shalom 301728828 Problem Lumbago with sciatica, right side M54.41 Active [id number] Problem Lumbago with sciatica, left side M54.42 Active 450170091 Problem Urinary hesitancy R39.11 Active 59 83812 Problem Gastroesophageal reflux disease without esophagitis K21.9 Active 808937416 Problem Other chronic pain G89.29 Active 8 6996092 Problem Chronic post-traumatic stress disorder (PTSD) F43. 12 Active 103957735 ALLERGIES No Information ENCOUNTERS Encounter Location Date Diagnosis [facility] [address] [facility] [id number] [address] [place] [id number] Oct, [facility] [address] [facility] [id number] [address] [place] [address] Aug, [facility] [address] [facility] [id number] [address] [place] [address] Aug, [facility] [address] [facility] [id number] [address] [place] [address] Jul, Strain of lumbar region, ini tial encounter S39.012A [facility] [address] [facility] [id number] [address] [place] [address] Jul, Lumbago with sciatica, left side M54.42 and Lumbago with sciatica, right side M54.41 [facility] [address] [address] Jul, Low back pain M54.5 and Othe r chronic pain G89.29 [facility] [address] [address] Jul, [place] [address] [address] Jul, Bipolar 2 disorder F31.81 ; Attention deficit disorder F90.0 and Social anxiety disorder F40.10 [place] [address] [address] Jun, [place] [address] [address] May, [place] [address] [address] Apr, Bipolar 2 disorder F31.81 ; Attention deficit disorder F90.0 ; Social anxiety disorder F40.10 and Chronic post-traumatic stress disorder (PTSD) F43.12 [place] [address] [address] 13 Apr, 2017 [place] [address] [address] Apr, Hyperlipidemia E78.5 [facility] [address] [address] 27 Mar, 2017 Encounter for immunization Z 23 and Tinea cruris B35.6 [place] [address] [address] 15 Mar, 2017 [place] [address] [address] Jan, [facility] [address] [address] Dec, [facility] [address] [id number] [address] [place] [address] Dec, [facility] [address] [facility] [id number] [address] [place] [address] Dec, Bipolar 2 disorder F31.81 ; Social anxiety disorder F40.10 and Attention deficit disorder F90.0 [facility] [address] [id number] [address] [place] [address] Dec, [facility] [address] [id number] [address] [place] [phone] Dec, Hypertension I10 [facility] [address] [id number] [address] [place] [address] October, [facility] [address] [facility] [id number] [address] [place] [phone] Oct, [facility] [address] [facility] [id number] [address] [place] [phone] Oct, Nasal congestion R09.81 [facility] [address] [facility] [id number] [address] [place] [address] Oct, Social anxiety disorder F40. 10 ; Bipolar 2 disorder F31.81 and Attention deficit disorder F90.0 [facility] [address] [facility] [id number] [address] [place] [address] Aug, [facility] [address] [facility] [id number] [address] [place] [address] Aug, [facility] [address] [facility] [id number] [address] [place] [address] Jul, Nasal congestion R09.81 [facility] [address] [facility] [id number] [address] [place] [address] Jul, [facility] [address] [facility] [id number] [address] [place] [address] Jun, Bipolar 2 disorder F31.81 ; Attention deficit disorder F90.0 ; Social anxiety disorder F40.10 and Chronic post-traumatic stress disorder (PTSD) F43.12 [facility] [address] [address] Jun, [facility] [address] [place] [id number] [address] [place] [phone] May, [facility] [address] [address] Apr, Attention deficit disorder F 90.0 [facility] [address] [address] Apr, Urinary hesitancy R39.11 ; H yperlipidemia E78.5 and Encounter for immunization Z23 [facility] [address] [address] Apr, [facility] [address] [address] Mar, [facility] [address] [address] Jan, [facility] [address] [address] Dec, [facility] [address] [address] Dec, [facility] [address] [address] Dec, Bipolar 2 disorder F31.81 ; Attention deficit disorder F90.0 ; Posttraumatic stress disorder F43.10 and Social anxiety disorder F40.10 [facility] [address] [place] [id number] [address] [place] [address] Dec, Scabies exposure Z20.89 and Scabies B86 [facility] [address] [place] [id number] [address] [place] [address] Dec, [facility] [address] [place] [address] Dec, Hypertension I10 and Gastroe sophageal reflux disease without esophagitis K21.9 [facility] [address] [facility] [id number] [address] [place] [address] October, [facility] [address] [facility] [id number] [place] [address] October, [facility] [address] [place] [id number] [place] [phone] Oct, Bipolar 2 disorder F31.81 ; Posttraumatic stress disorder F43.10 ; Attention deficit disorder F90.0 and Social anxiety disorder F40.10 [facility] [address] [facility] [id number] [address] Oct, [facility] [address] [address] Oct, Hypertension I10 and Nasal c ongestion R09.81 [facility] [address] [facility] [id number] [address] [place] [address] Aug, [facility] [address] [address] Aug, [facility] [address] [place] [id number] [place] [address] Aug, [facility] [address] [address] Aug, [facility] [address] [place] [id number] [place] [address] Aug, [facility] [address] [address] Aug, Hypertension I10 and Tremor R25.1 [facility] [address] [facility] [id number] [address] [place] [address] 04 Aug, 2015 Bipolar 2 disorder F31.81 ; Posttraumatic stress disorder F43.10 ; Attention deficit disorder F90.0 and Social anxiety disorder F40.10 [facility] [address] [facility] [id number] [address] [place] [address] Jul, [facility] [address] [facility] [id number] [address] [place] [address] Jul, Hyperlipidemia E78.5 [facility] [address] [facility] [id number] [address] [place] [address] Jul, Hypertension I10 and Hyperli pidemia E78.5 [facility] [address] [facility] [id number] [address] [place] [address] Jun, Bipolar 2 disorder F31.81 ; Posttraumatic stress disorder F43.10 ; Attention deficit disorder F90.0 and Social anxiety disorder F40.10 [facility] [address] [facility] [id number] [address] [place] [address] May, [facility] [address] [facility] [id number] [address] [place] [address] May, [facility] [address] [facility] [id number] [address] [place] [address] Apr, Bipolar 2 disorder F31.81 ; Posttraumatic stress disorder F43.10 ; Attention deficit disorder F90.0 and Social phobia F40.10 [facility] [address] [facility] [id number] [address] [place] [address] Apr, Bipolar 2 disorder F31.81 ; Posttraumatic stress disorder F43.10 and Attention deficit disorder F90.0 [facility] [address] [facility] [id number] [address] [place] [address] Apr, [facility] [address] [facility] [id number] [address] [place] [address] Apr, [facility] [address] [facility] [id number] [address] [place] [phone] Apr, [facility] [address] [facility] [id number] [address] [place] [phone] Mar, [facility] [address] [facility] [id number] [address] [place] [address] Mar, [facility] [address] [id number] [address] [place] [address] Jan, [facility] [address] [facility] [id number] [address] [place] [address] Jan, [facility] [address] [facility] [id number] [address] [place] [address] Jan, Bipolar II disorder 296.89 ; Posttraumatic stress disorder 309.81 ; Social phobia 300.23 and Attention deficit disorder of childhood without mention of hyperactivity 314.00 [facility] [address] [facility] [id number] [address] [place] [address] Jan, Other and unspecified bipola r disorders 296.89 ; Posttraumatic stress disorder 309.81 and Attention deficit disorder of childhood without mention of hyperactivity 314.00 [facility] [address] [facility] [id number] [address] [place] [phone] Jan, [facility] [address] [facility] [id number] [address] [place] [address] Dec, Other and unspecified bipola r disorders 296.89 ; Posttraumatic stress disorder 309.81 and Attention deficit disorder of childhood without mention of hyperactivity 314.00 [facility] [address] [facility] [id number] [address] [place] [address] Dec, Migraines 346.90 [facility] [address] [facility] [id number] [address] [place] [address] Dec, Other and unspecified bipola r disorders 296.89 ; Posttraumatic stress disorder 309.81 and Attention deficit disorder of childhood without mention of hyperactivity 314.00 [facility] [address] [facility] [id number] [address] [place] [address] Dec, [facility] [address] [facility] [id number] [address] [place] [address] Dec, Bipolar II disorder 296.89 ; Social phobia 300.23 ; Posttraumatic stress disorder 309.81 and Attention deficit disorder of childhood without mention of hyperactivity 314.00 [facility] [address] [id number] [address] [place] [address] Dec, Other and unspecified bipola r disorders 296.89 ; Posttraumatic stress disorder 309.81 and Attention deficit disorder of childhood without mention of hyperactivity 314.00 [facility] [address] [id number] [address] [place] [address] October, Other and unspecified bipola r disorders 296.89 ; Posttraumatic stress disorder 309.81 and Attention deficit disorder of childhood without mention of hyperactivity 314.00 [facility] [address] [id number] [address] [place] [address] October, [facility] [address] [id number] [address] [place] [phone] October, [facility] [address] [id number] [address] [place] [address] October, [facility] [address] [id number] [address] [place] [phone] October, [facility] [address] [id number] [address] [place] [address] October, Attention deficit disorder o f childhood without mention of hyperactivity 314.00 ; Posttraumatic stress disorder 309.81 ; Social phobia 300.23 and Other and unspecified bipolar disorders 296.89 [facility] [address] [id number] [address] [place] [address] Oct, [facility] [address] [id number] [address] [place] [address] Oct, [facility] [address] [id number] [address] [place] [phone] Aug, [facility] [address] [facility] [id number] [address] [place] [phone] Aug, [facility] [address] [facility] [id number] [address] [place] [phone] Aug, [facility] [address] [id number] [facility] [place] [address] 24 Aug, 2014 [facility] [address] [id number] [facility] [place] [address] 17 Aug, 2014 [facility] [address] [id number] [facility] [place] [address] 17 Aug, 2014 [facility] [address] [id number] [facility] [place] [address] 17 Aug, 2014 [facility] [address] [id number] [facility] [place] [address] 17 Aug, 2014 [facility] [address] [id number] [address] [place] [address], [place] [address] 17 Aug, 2014 [facility] [address] [id number] [address] [place] [address], [place] [address] 17 Aug, 2014 [facility] [address] [id number] [address] [place] [address], [place] [address] 13 Aug, 2014 [facility] [address] [id number] [address] [place] [address], [place] [address] 13 Aug, 2014 [facility] [address] [id number] [address] [place] [address], [place] [address] 12 Aug, 2014 [facility] [address] [id number] [address] [place] [address], [place] [address] 12 Aug, 2014 [facility] [address] [id number] [address] [place] [address], [place] [address] 12 Aug, 2014 [facility] [address] [id number] [address] [place] [address], [place] [address] 12 Aug, 2014 [facility] [address] [id number] [address] [place] [address], [place] [address] 12 Aug, 2014 [facility] [address] [id number] [address] [place] [address], [place] [address] 12 Aug, 2014 [facility] [address] [id number] [address] [place] [address], [place] [address] Aug, [facility] [address] [id number] [address] [place] [address], [place] [address] Aug, [facility] [address] [id number] [address] [place] [address], [place] [address] Aug, [facility] [address] [id number] [address] [place] [address], [place] [address] Aug, [facility] [address] [id number] [address] [place] [address], [place] [address] Aug, [facility] [address] [id number] [address] [place] [address], [place] [address] Aug, [facility] [address] [id number] [address] [place] [address], [place] [address] Aug, [facility] [address] [id number] [address] [place] [address], [place] [address] Aug, [facility] [address] [id number] [address] [place] [address], [place] [address] Aug, [facility] [address] [id number] [address] [place] [address], [place] [address] Aug, [facility] [address] [id number] [address] [place] [address], [place] [address] Aug, [facility] [address] [id number] [address] [place] [address], [place] [address] Aug, [facility] [address] [id number] [address] [place] [address], [place] [address] Jul, [facility] [address] [id number] [address] [place] [address], [place] [address] Jul, [facility] [address] [id number] [address] [place] [address], [place] [address] Jul, [facility] [address] [id number] [address] [place] [address], [place] [address] Jul, [facility] [address] [id number] [address] [place] [address] Jul, [facility] [address] [id number] [address] [place] [phone] Jul, [facility] [address] [id number] [address] [place] [phone] Jul, [facility] [address] [id number] [address] [place] [id number] Jul, [facility] [address] [id number] [address] [place] [id number] Jun, [facility] [address] [id number] [address] [place] [phone] Jun, [facility] [address] [id number] [address] [place] [address] Jun, [facility] [address] [id number] [address] [place] [phone] Jun, [facility] [address] [id number] [address] [place] [phone] May, [facility] [address] [id number] [address] [place] [address] May, [facility] [address] [id number] [address] [place] [phone] May, [facility] [address] [id number] [address] [place] [phone] May, [facility] [address] [id number] [address] [place] [phone] May, [facility] [address] [id number] [address] [place] [phone] Apr, [facility] [address] [id number] [address] [place] [phone] Apr, IMMUNIZATIONS No Known Immunizations SOCIAL HISTORY Never Assessed REASON FOR VISIT lakshmi 12/27/2016 PLAN OF CARE VITAL SIGNS MEDICATIONS Medication Instructions Dosage Frequency Start Date End Date Duration S sekouus Adderall XR 30 MG Orally for ADHD 1 capsule in the morning 2 Dec, 28 days Active Adderall 5 mg Orally at 4pm for ADHD 1 tablet Dec, 28 days Active RESULTS No Results PROCEDURES No Known procedures INSTRUCTIONS MEDICATIONS ADMINISTERED No Known Medications MEDICAL (GENERAL) HISTORY Type Description Date Medical History Hypertension Medical History GERD Medical History Bipolar Surgical History Hernia right ingual Surgical History Colonoscopy october 2014 Hospitalization History surgeries Hospitalization History ER for dehydration and vomitting 10/04/15
--- OUTSIDE RECORDS SUMMARY | 2019-11-11 19:15 | XMS REPORT ---
Author Author [place] Organization [facility] Address [address] [place] [address] Care Team Providers Care Information Strategist Name Role Phone FLEX GUILLERMO Unavailable PROBLEMS Type Condition ICD9-CM Code EIJ10-RU Code Onset Dates Condition S tatus SNOMED Code Problem Social anxiety disorder F40.10 Active 30361945 Problem Hyperlipidemia E78.5 Active 87617 004 Problem Hypertension I10 Active 8009703 3 Problem Posttraumatic stress disorder F43.10 Active 69192296 Problem Bipolar 2 disorder F31.81 Active 8 1403528 Problem Attention deficit disorder F90.0 Act shalom 406084458 Problem Lumbago with sciatica, right side M54.41 Active 460119967416075 Problem Lumbago with sciatica, left side M54.42 Active 885187572 Problem Urinary hesitancy R39.11 Active 59 07775 Problem Gastroesophageal reflux disease without esophagitis K21.9 Active 850893442 Problem Other chronic pain G89.29 Active 8 2665296 Problem Chronic post-traumatic stress disorder (PTSD) F43. 12 Active 545187891 ALLERGIES Substance Reaction Event Type Date Status Codeine Sulfate disoriented Drug Allergy Apr, Active ENCOUNTERS Encounter Location Date Diagnosis [facility] [address] [facility] [id number] [address] [place] [phone] Dec, [facility] [address] [facility] [id number] [address] [place] [phone] Oct, Bipolar 2 disorder F31.81 ; Attention deficit disorder F90.0 ; Social anxiety disorder F40.10 and Chronic post-traumatic stress disorder (PTSD) F43.12 [facility] [address] [facility] [id number] [address] [place] [phone] Oct, [facility] [address] [facility] [id number] [address] [place] [phone] Oct, [facility] [address] [id number] [address] [place] [phone] Aug, [facility] [address] [id number] [address] [place] [phone] Aug, [facility] [address] [facility] [id number] [address] [place] [phone] Jul, Strain of lumbar region, ini tial encounter S39.012A [facility] [address] [id number] [address] [place] [phone] Jul, Lumbago with sciatica, left side M54.42 and Lumbago with sciatica, right side M54.41 [facility] [address] [facility] [id number] [address] [place] [phone] Jul, Low back pain M54.5 and Othe r chronic pain G89.29 [facility] [address] [facility] [id number] [address] [place] [phone] Jul, [facility] [address] [facility] [id number] [address] [place] [phone] Jul, Bipolar 2 disorder F31.81 ; Attention deficit disorder F90.0 and Social anxiety disorder F40.10 [facility] [address] [facility] [id number] [address] [place] [phone] Jun, [facility] [address] [facility] [id number] [address] [place] [phone] May, [facility] [address] [facility] [id number] [address] [place] [phone] Apr, Bipolar 2 disorder F31.81 ; Attention deficit disorder F90.0 ; Social anxiety disorder F40.10 and Chronic post-traumatic stress disorder (PTSD) F43.12 [facility] [address] [facility] [id number] [address] [place] [phone] 13 Apr, 2017 [facility] [address] [facility] [id number] [address] [place] [phone] Apr, Hyperlipidemia E78.5 [facility] [address] [facility] [id number] [address] [place] [phone] Mar, Encounter for immunization Z 23 and Tinea cruris B35.6 [facility] [address] [facility] [id number] [address] [place] [phone] Mar, [facility] [address] [facility] [id number] [address] [place] [phone] Jan, [facility] [address] [facility] [id number] [address] [place] [phone] Dec, [facility] [address] [facility] [id number] [address] [place] [phone] Dec, [facility] [address] [facility] [id number] [address] [place] [phone] Dec, Bipolar 2 disorder F31.81 ; Social anxiety disorder F40.10 and Attention deficit disorder F90.0 [facility] [address] [facility] [id number] [address] [place] [phone] Dec, [facility] [address] [place] [id number] [address] [place] [phone] Dec, Hypertension I10 [facility] [address] [facility] [id number] [address] [place] [phone] October, [facility] [address] [facility] [id number] [address] [place] [phone] Oct, [facility] [address] [facility] [id number] [address] [place] [phone] Oct, Nasal congestion R09.81 [facility] [address] [facility] [id number] [address] [place] [phone] Oct, Social anxiety disorder F40. 10 ; Bipolar 2 disorder F31.81 and Attention deficit disorder F90.0 [facility] [address] [facility] [id number] [address] [place] [phone] Aug, [facility] [address] [place] [id number] [address] [place] [phone] Aug, [facility] [address] [place] [id number] [address] [place] [phone] Jul, Nasal congestion R09.81 [facility] [address] [place] [id number] [address] [place] [phone] Jul, [facility] [address] [place] [id number] [place] [phone] Jun, Bipolar 2 disorder F31.81 ; Attention deficit disorder F90.0 ; Social anxiety disorder F40.10 and Chronic post-traumatic stress disorder (PTSD) F43.12 [facility] [address] [phone] Jun, [facility] [address] [phone] May, [facility] [address] [id number] 14 Apr, 2016 Attention deficit disorder F 90.0 [facility] [address] [id number] Apr, Urinary hesitancy R39.11 ; H yperlipidemia E78.5 and Encounter for immunization Z23 [facility] [id number] [place] [phone] Apr, [facility] [address] [place] [id number] [address] [place] [phone] Mar, [facility] [address] [place] [id number] [address] [place] [phone] Jan, [facility] [address] [place] [id number] [address] [place] [phone] Dec, [facility] [address] [place] [id number] [address] [place] [phone] Dec, [facility] [address] [id number] [address] [place] [phone] Dec, Bipolar 2 disorder F31.81 ; Attention deficit disorder F90.0 ; Posttraumatic stress disorder F43.10 and Social anxiety disorder F40.10 [facility] [address] [id number] [address] [place] [phone] Dec, Scabies exposure Z20.89 and Scabies B86 [facility] [address] [id number] [address] [place] [phone] Dec, [facility] [address] [facility] [id number] [address] [place] [phone] Dec, Hypertension I10 and Gastroe sophageal reflux disease without esophagitis K21.9 [facility] [address] [facility] [id number] [address] [place] [phone] October, [facility] [address] [facility] [id number] [address] [place] [phone] October, [facility] [address] [facility] [id number] [address] [place] [phone] Oct, Bipolar 2 disorder F31.81 ; Posttraumatic stress disorder F43.10 ; Attention deficit disorder F90.0 and Social anxiety disorder F40.10 [facility] [address] [facility] [id number] [address] [place] [phone] Oct, [facility] [address] [facility] [id number] [address] [place] [phone] Oct, Hypertension I10 and Nasal c ongestion R09.81 [facility] [address] [id number] [address] [place] [phone] Aug, [facility] [address] [facility] [id number] [address] [place] [phone] Aug, [facility] [address] [facility] [id number] [address] [place] [phone] Aug, [facility] [address] [place] [id number] [address] [place] [phone] Aug, [facility] [address] [phone] Aug, [facility] [address] [place] [id number] Aug, Hypertension I10 and Tremor R25.1 [facility] [address] [address] Aug, Bipolar 2 disorder F31.81 ; Posttraumatic stress disorder F43.10 ; Attention deficit disorder F90.0 and Social anxiety disorder F40.10 [facility] [address] [address] Jul, [facility] [address] [address] Jul, Hyperlipidemia E78.5 [place] [address] [address] Jul, Hypertension I10 and Hyperli pidemia E78.5 [place] [address] [address] Jun, Bipolar 2 disorder F31.81 ; Posttraumatic stress disorder F43.10 ; Attention deficit disorder F90.0 and Social anxiety disorder F40.10 [place] [address] [address] May, [facility] [address] [address] May, [facility] [address] [address] Apr, Bipolar 2 disorder F31.81 ; Posttraumatic stress disorder F43.10 ; Attention deficit disorder F90.0 and Social phobia F40.10 [facility] [address] [address] Apr, Bipolar 2 disorder F31.81 ; Posttraumatic stress disorder F43.10 and Attention deficit disorder F90.0 [facility] [address] [id number] [address] [place] [phone] Apr, [facility] [address] [facility] [id number] [address] [place] [phone] Apr, [facility] [address] [facility] [id number] [address] [place] [phone] Apr, [facility] [address] [facility] [id number] [address] [place] [phone] Mar, [facility] [address] [id number] [address] [place] [phone] Mar, [facility] [address] [facility] [id number] [address] [place] [phone] Jan, [facility] [address] [facility] [id number] [address] [place] [phone] Jan, [facility] [address] [facility] [id number] [address] [place] [phone] Jan, Bipolar II disorder 296.89 ; Posttraumatic stress disorder 309.81 ; Social phobia 300.23 and Attention deficit disorder of childhood without mention of hyperactivity 314.00 [facility] [address] [facility] [id number] [address] [place] [phone] Jan, Other and unspecified bipola r disorders 296.89 ; Posttraumatic stress disorder 309.81 and Attention deficit disorder of childhood without mention of hyperactivity 314.00 [facility] [address] [facility] [id number] [address] [place] [phone] Jan, [facility] [address] [facility] [id number] [address] [place] [phone] Dec, Other and unspecified bipola r disorders 296.89 ; Posttraumatic stress disorder 309.81 and Attention deficit disorder of childhood without mention of hyperactivity 314.00 [facility] [address] [facility] [id number] [address] [place] [phone] Dec, Migraines 346.90 [facility] [address] [id number] [address] [place] [phone] Dec, Other and unspecified bipola r disorders 296.89 ; Posttraumatic stress disorder 309.81 and Attention deficit disorder of childhood without mention of hyperactivity 314.00 [facility] [address] [facility] [id number] [address] [place] [phone] Dec, [facility] [address] [facility] [id number] [address] [place] [phone] Dec, Bipolar II disorder 296.89 ; Social phobia 300.23 ; Posttraumatic stress disorder 309.81 and Attention deficit disorder of childhood without mention of hyperactivity 314.00 [facility] [address] [facility] [id number] [address] [place] [id number] Dec, Other and unspecified bipola r disorders 296.89 ; Posttraumatic stress disorder 309.81 and Attention deficit disorder of childhood without mention of hyperactivity 314.00 [facility] [address] [facility] [id number] [address] [place] [phone] October, Other and unspecified bipola r disorders 296.89 ; Posttraumatic stress disorder 309.81 and Attention deficit disorder of childhood without mention of hyperactivity 314.00 [facility] [address] [facility] [id number] [address] [place] [phone] October, [facility] [address] [facility] [id number] [address] [place] [phone] October, [facility] [address] [facility] [id number] [address] [place] [phone] October, [facility] [address] [facility] [id number] [address] [place] [phone] October, [facility] [address] [facility] [id number] [address] [place] [phone] October, Attention deficit disorder o f childhood without mention of hyperactivity 314.00 ; Posttraumatic stress disorder 309.81 ; Social phobia 300.23 and Other and unspecified bipolar disorders 296.89 [facility] [address] [facility] [id number] [address] [place] [id number] 14 Oct, 2014 [facility] [address] [id number] [address] [place] [address], [place] [address] 13 Oct, 2014 [facility] [address] [id number] [address] [place] [address], [place] [address] 26 Aug, 2014 [facility] [address] [id number] [address] [place] [address], [place] [address] 26 Aug, 2014 [facility] [address] [id number] [address] [place] [address], [place] [address] 24 Aug, 2014 [facility] [address] [id number] [address] [place] [address], [place] [address] 24 Aug, 2014 [facility] [address] [id number] [address] [place] [address], [place] [address] 17 Aug, 2014 [facility] [address] [id number] [address] [place] [address], [place] [address] 17 Aug, 2014 [facility] [address] [id number] [address] [place] [address], [place] [address] 17 Aug, 2014 [facility] [address] [id number] [address] [place] [address], [place] [address] 17 Aug, 2014 [facility] [address] [id number] [address] [place] [address], [place] [address] 17 Aug, 2014 [facility] [address] [id number] [address] [place] [address], [place] [address] 17 Aug, 2014 [facility] [address] [id number] [address] [place] [address], [place] [address] 13 Aug, 2014 [facility] [address] [id number] [address] [place] [address], [place] [address] 13 Aug, 2014 [facility] [address] [id number] [address] [place] [address], [place] [address] 12 Aug, 2014 [facility] [address] [id number] [address] [place] [address], [place] [address] 12 Aug, 2014 [facility] [address] [id number] [facility] [address] 12 Aug, 2014 [facility] [address] [id number] [address] [place] [address], [place] [address] Aug, [facility] [address] [id number] [address] [place] [address], [place] [address] Aug, [facility] [address] [id number] [address] [place] [address], [place] [address] Aug, [facility] [address] [id number] [address] [place] [address], [place] [address] Aug, [facility] [address] [id number] [address] [place] [address], [place] [address] Aug, [facility] [address] [id number] [address] [place] [address], [place] [address] Aug, [facility] [address] [id number] [address] [place] [address], [place] [address] Aug, [facility] [address] [id number] [address] [place] [address], [place] [address] Aug, [facility] [address] [id number] [address] [place] [address], [place] [address] Aug, [facility] [address] [id number] [address] [place] [address], [place] [address] Aug, [facility] [address] [id number] [address] [place] [address], [place] [address] Aug, [facility] [address] [id number] [address] [place] [address], [place] [address] Aug, [facility] [address] [id number] [address] [place] [address], [place] [id number] Aug, [facility] [address] [id number] [address] [place] [address], [place] [address] Aug, [facility] [address] [id number] [address] [place] [address], [place] [address] Aug, [facility] [address] [id number] [address] [place] [address], [place] [address] Jul, [facility] [address] [id number] [address] [place] [address], [place] [address] Jul, [facility] [address] [id number] [address] [place] [address], [place] [address] Jul, [facility] [address] [id number] [address] [place] [address], [place] [address] Jul, [facility] [address] [id number] [address] [place] [address], [place] [address] Jul, [facility] [address] [id number] [address] [place] [address], [place] [address] Jul, [facility] [address] [id number] [address] [place] [address], [place] [address] Jul, [facility] [address] [id number] [address] [place] [address], [place] [address] Jul, [facility] [address] [id number] [address] [place] [address], [place] [address] Jun, [facility] [address] [id number] [address] [place] [address], [place] [address] Jun, [facility] [address] [id number] [address] [place] [address], [place] [address] Jun, [facility] [address] [id number] [address] [place] [address], [place] [address] Jun, [facility] [address] [id number] [address] [place] [address], [place] [address] May, [facility] [address] [id number] [address] [place] [address], [place] [address] May, [facility] [address] [id number] [address] [place] [address], [place] [address] May, [facility] [address] [id number] [address] [place] [id number] May, [facility] [address] [facility] [id number] [address] [place] [id number] May, [facility] [address] [facility] [id number] [address] [place] [id number] Apr, [facility] [address] [facility] [id number] [address] [place] [id number] Apr, IMMUNIZATIONS No Known Immunizations SOCIAL HISTORY Never Assessed REASON FOR VISIT f/u PLAN OF CARE Activity Details Follow Up 2 Months Reason: VITAL SIGNS Height 64 in 2017-04-27 Weight 157.4 lbs 2017-04-27 Heart Rate 100 bpm 2017-04-27 Respiratory Rate 20 2017-04-27 BMI 27.01 kg/m2 2017-04-27 Blood pressure systolic 140 mmHg 2017-04-27 Blood pressure diastolic 76 mmHg 2017-04-27 MEDICATIONS Medication Instructions Dosage Frequency Start Date End Date Duration S tatus Atorvastatin Calcium 20 MG Orally Once a day 1 tablet 24h 30 Active HydrOXYzine Pamoate 25 MG Orally 2 times a day as need for a nxiety 1 capsule as needed Jun, Active Omeprazole 20 MG TAKE ONE CAPSULE BY MOUTH ONCE DAILY 30 Active Pseudoephedrine HCl 60 mg Orally every 6 hrs 1 tablet as needed 6h Oct, 8 days Active Colace 100 mg 1 capsule by Oral route 2 times per day PRN 30 Apr, 2014 Active Vitamin C 500 mg 1 tablet by Oral route 1 time per day 3 0 Apr, 2014 Active Anusol-HC 25 mg by Rectal route 2 times per day Aug, Active Lamotrigine 200 MG Orally in the evening for depression 1 tablet Active Vyvanse 30 MG Orally Once a day for ADHD 1 capsule in the morning Apr, Active Viagra 50 MG Orally PRN 1 tablet as needed October, Active Skelaxin 800 mg 1 Tablet by Oral route 3-4 times per d ay PRN muscle spasm Aug, Active Lisinopril 20 MG Orally Once a day 1 tablet 24h 30 Active Vitamin D3 5000 UNIT Orally Once a day 1 capsule 24h 30 Apr, 2014 Active Multivitamin 1 tablet by Oral route 1 time per day 30 Oc 2013 Active Aspirin 325 mg 1 tablet by Oral route 1 time per day Apr, Active RESULTS No Results PROCEDURES No Known procedures INSTRUCTIONS MEDICATIONS ADMINISTERED No Known Medications MEDICAL (GENERAL) HISTORY Type Description Date Medical History Hypertension Medical History GERD Medical History Bipolar Surgical History Hernia right ingual Surgical History Colonoscopy october 2014 Hospitalization History surgeries Hospitalization History [facility] for dehydration and vomitting 10/04/15
--- OUTSIDE RECORDS SUMMARY | 2019-11-11 19:15 | XMS REPORT ---
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 Barron to sign for Rafaela September 16, 2014 1 tablet Results No Known Results Summary Purpose eClinicalWorks Submission
--- OUTSIDE RECORDS SUMMARY | 2019-11-11 19:15 | XMS REPORT ---
Author Author [place] Organization [facility] Address [address] [place] [address] Care Team Providers Care Authorizer Name Role Phone FLEX GUILLERMO Unavailable PROBLEMS Type Condition ICD9-CM Code [id number] Code Onset Dates Condition S tatus SNOMED Code Problem Social anxiety disorder F40.10 Active 11787096 Problem Hyperlipidemia E78.5 Active 14852 004 Problem Hypertension I10 Active 9544294 3 Problem Posttraumatic stress disorder F43.10 Active 56974193 Problem Bipolar 2 disorder F31.81 Active 8 1215311 Problem Attention deficit disorder F90.0 Act shalom [id number] Problem Lumbago with sciatica, right side M54.41 Active 419837670774201 Problem Lumbago with sciatica, left side M54.42 Active 623646721 Problem Urinary hesitancy R39.11 Active 59 78981 Problem Gastroesophageal reflux disease without esophagitis K21.9 Active 898098645 Problem Other chronic pain G89.29 Active 8 9965775 Problem Chronic post-traumatic stress disorder (PTSD) F43. 12 Active [id number] ALLERGIES No Information ENCOUNTERS Encounter Location Date Diagnosis [facility] [address] [facility] [place] [id number] [address] [place] [address] Dec, [facility] [address] [facility] [place] [id number] [address] [place] [address] Dec, Upper respiratory tract infe ction, unspecified type J06.9 [facility] [address] [facility] [place] [id number] [address] [place] [address] October, [facility] [address] [facility] [place] [id number] [address] [place] [address] Oct, Bipolar 2 disorder F31.81 ; Attention deficit disorder F90.0 ; Social anxiety disorder F40.10 and Chronic post-traumatic stress disorder (PTSD) F43.12 [facility] [address] [id number] [address] [place] [address] Oct, [facility] [address] [id number] [address] [place] [address] Oct, [facility] [address] [facility] [place] [id number] [address] [place] [address] Aug, [facility] [address] [facility] [place] [id number] [address] [place] [address] Aug, [facility] [address] [facility] [place] [id number] [address] [place] [address] Jul, Strain of lumbar region, ini tial encounter S39.012A [facility] [address] [facility] [place] [id number] [address] [place] [address] Jul, Lumbago with sciatica, left side M54.42 and Lumbago with sciatica, right side M54.41 [facility] [address] [facility] [place] [id number] [address] [place] [address] Jul, Low back pain M54.5 and Othe r chronic pain G89.29 [facility] [address] [facility] [place] [id number] [address] [place] [address] Jul, [facility] [address] [facility] [place] [id number] [address] [place] [address] Jul, Bipolar 2 disorder F31.81 ; Attention deficit disorder F90.0 and Social anxiety disorder F40.10 [facility] [address] [id number] [address] [place] [address] Jun, [facility] [address] [facility] [place] [id number] [address] [place] [address] May, [facility] [address] [facility] [place] [id number] [address] [place] [address] Apr, Bipolar 2 disorder F31.81 ; Attention deficit disorder F90.0 ; Social anxiety disorder F40.10 and Chronic post-traumatic stress disorder (PTSD) F43.12 [facility] [address] [facility] [place] [id number] [address] [place] [address] Apr, [facility] [address] [facility] [place] [id number] [address] [place] [address] Apr, Hyperlipidemia E78.5 [facility] [address] [facility] [place] [id number] [address] [place] [address] Mar, Encounter for immunization Z 23 and Tinea cruris B35.6 [facility] [address] [facility] [place] [id number] [address] [place] [address] 15 Mar, 2017 [facility] [address] [facility] [place] [id number] [address] [place] [address] Jan, [facility] [address] [facility] [place] [id number] [address] [place] [address] Dec, [facility] [address] [facility] [place] [id number] [address] [place] [address] Dec, [facility] [address] [facility] [place] [id number] [address] [place] [address] Dec, Bipolar 2 disorder F31.81 ; Social anxiety disorder F40.10 and Attention deficit disorder F90.0 [facility] [address] [facility] [place] [id number] [address] [place] [address] Dec, [facility] [address] [facility] [place] [id number] [address] [place] [address] Dec, Hypertension I10 [facility] [address] [facility] [place] [id number] [address] [place] [address] October, [facility] [address] [facility] [place] [id number] [address] [place] [address] Oct, [facility] [address] [facility] [place] [id number] [address] [place] [address] Oct, Nasal congestion R09.81 [facility] [address] [facility] [place] [id number] [address] [place] [address] Oct, Social anxiety disorder F40. 10 ; Bipolar 2 disorder F31.81 and Attention deficit disorder F90.0 [facility] [address] [facility] [place] [id number] [address] [place] [address] Aug, [facility] [address] [facility] [place] [id number] [address] [place] [address] Aug, [facility] [address] [facility] [place] [id number] [address] [place] [address] Jul, Nasal congestion R09.81 [facility] [address] [facility] [place] [id number] [address] [place] [address] Jul, [facility] [address] [id number] [address] [place] [address] Jun, Bipolar 2 disorder F31.81 ; Attention deficit disorder F90.0 ; Social anxiety disorder F40.10 and Chronic post-traumatic stress disorder (PTSD) F43.12 [facility] [address] [id number] [address] [place] [address] Jun, [facility] [address] [place] [id number] [address] [place] [address] May, [facility] [id number] [place] [address] 14 Apr, 2016 Attention deficit disorder F 90.0 [facility] [address] [id number] [address] [place] [address] Apr, Urinary hesitancy R39.11 ; H yperlipidemia E78.5 and Encounter for immunization Z23 [facility] [address] [facility] [place] [id number] [address] [place] [address] Apr, [facility] [address] [id number] [address] [place] [address] 16 Mar, 2016 [facility] [address] [id number] [address] [place] [address] Jan, [facility] [address] [id number] [address] [place] [address] Dec, [facility] [address] [facility] [place] [id number] [address] [place] [address] Dec, [facility] [address] [facility] [place] [id number] [address] [place] [address] Dec, Bipolar 2 disorder F31.81 ; Attention deficit disorder F90.0 ; Posttraumatic stress disorder F43.10 and Social anxiety disorder F40.10 [facility] [address] [id number] [address] [place] [address] Dec, Scabies exposure Z20.89 and Scabies B86 [facility] [address] [facility] [place] [id number] [address] [place] [address] Dec, [facility] [address] [facility] [place] [id number] [address] [place] [address] Dec, Hypertension I10 and Gastroe sophageal reflux disease without esophagitis K21.9 [facility] [address] [facility] [place] [id number] [address] [place] [address] October, [facility] [address] [facility] [place] [id number] [address] [place] [address] October, [facility] [address] [facility] [place] [id number] [address] [place] [address] Oct, Bipolar 2 disorder F31.81 ; Posttraumatic stress disorder F43.10 ; Attention deficit disorder F90.0 and Social anxiety disorder F40.10 [facility] [address] [facility] [place] [id number] [address] [place] [address] Oct, [facility] [address] [facility] [place] [id number] [address] [place] [address] Oct, Hypertension I10 and Nasal c ongestion R09.81 [facility] [address] [facility] [place] [id number] [address] [place] [address] Aug, [facility] [address] [facility] [place] [id number] [address] [place] [address] Aug, [facility] [address] [facility] [place] [id number] [address] [place] [address] Aug, [facility] [address] [place] [id number] [address] [place] [address] Aug, [facility] [address] [id number] [place] [address] Aug, [facility] [id number] [place] [address] Aug, Hypertension I10 and Tremor R25.1 [facility] [address] [address] [id number] [place] [address] Aug, Bipolar 2 disorder F31.81 ; Posttraumatic stress disorder F43.10 ; Attention deficit disorder F90.0 and Social anxiety disorder F40.10 [facility] [address] [address] Jul, [facility] [address] [address] Jul, Hyperlipidemia E78.5 [facility] [address] [id number] [place] [address] Jul, Hypertension I10 and Hyperli pidemia E78.5 [facility] [address] [place] [id number] [address] [place] [address] Jun, Bipolar 2 disorder F31.81 ; Posttraumatic stress disorder F43.10 ; Attention deficit disorder F90.0 and Social anxiety disorder F40.10 [facility] [address] [id number] [address] [place] [address] May, [facility] [address] [id number] [place] [address] May, [facility] [address] [id number] [address] [place] [address] Apr, Bipolar 2 disorder F31.81 ; Posttraumatic stress disorder F43.10 ; Attention deficit disorder F90.0 and Social phobia F40.10 [facility] [address] [facility] [place] [id number] [address] [place] [address] Apr, Bipolar 2 disorder F31.81 ; Posttraumatic stress disorder F43.10 and Attention deficit disorder F90.0 [facility] [address] [facility] [place] [id number] [address] [place] [address] Apr, [facility] [address] [id number] [address] [place] [address] Apr, [facility] [address] [facility] [place] [id number] [address] [place] [address] Apr, [facility] [address] [facility] [place] [id number] [address] [place] [address] Mar, [facility] [address] [facility] [place] [id number] [address] [place] [address] Mar, [facility] [address] [facility] [place] [id number] [address] [place] [address] Jan, [facility] [address] [facility] [place] [id number] [address] [place] [address] Jan, [facility] [address] [facility] [place] [id number] [address] [place] [address] Jan, Bipolar II disorder 296.89 ; Posttraumatic stress disorder 309.81 ; Social phobia 300.23 and Attention deficit disorder of childhood without mention of hyperactivity 314.00 [facility] [address] [facility] [facility] [place] [id number] [address] [place] [address] Jan, Other and unspecified bipola r disorders 296.89 ; Posttraumatic stress disorder 309.81 and Attention deficit disorder of childhood without mention of hyperactivity 314.00 [facility] [address] [facility] [place] [id number] [address] [place] [address] Jan, [facility] [address] [facility] [place] [id number] [address] [place] [address] Dec, Other and unspecified bipola r disorders 296.89 ; Posttraumatic stress disorder 309.81 and Attention deficit disorder of childhood without mention of hyperactivity 314.00 [facility] [address] [facility] [place] [id number] [address] [place] [address] Dec, Migraines 346.90 [facility] [address] [facility] [place] [id number] [address] [place] [address] Dec, Other and unspecified bipola r disorders 296.89 ; Posttraumatic stress disorder 309.81 and Attention deficit disorder of childhood without mention of hyperactivity 314.00 [facility] [address] [id number] [address] [place] [address] Dec, [facility] [address] [facility] [place] [id number] [address] [place] [address] Dec, Bipolar II disorder 296.89 ; Social phobia 300.23 ; Posttraumatic stress disorder 309.81 and Attention deficit disorder of childhood without mention of hyperactivity 314.00 [facility] [address] [facility] [place] [id number] [address] [place] [address] Dec, Other and unspecified bipola r disorders 296.89 ; Posttraumatic stress disorder 309.81 and Attention deficit disorder of childhood without mention of hyperactivity 314.00 [facility] [address] [facility] [place] [id number] [address] [place] [address] October, Other and unspecified bipola r disorders 296.89 ; Posttraumatic stress disorder 309.81 and Attention deficit disorder of childhood without mention of hyperactivity 314.00 [facility] [address] [facility] [place] [id number] [address] [place] [address] October, [facility] [address] [facility] [place] [id number] [address] [place] [address] October, [facility] [address] [facility] [place] [id number] [address] [place] [address] October, [facility] [address] [facility] [place] [id number] [address] [place] [address] October, [facility] [address] [facility] [place] [id number] [address] [place] [address] October, Attention deficit disorder o f childhood without mention of hyperactivity 314.00 ; Posttraumatic stress disorder 309.81 ; Social phobia 300.23 and Other and unspecified bipolar disorders 296.89 [facility] [address] [id number] [address] [place] [address] 14 Oct, 2014 [facility] [address] [id number] [address] [place] [address] Oct, [facility] [address] [id number] [address] [place] [address] Aug, [facility] [address] [id number] [address] [place] [address] Aug, [facility] [address] [id number] [address] [place] [address] Aug, [facility] [address] [id number] [address] [place] [address] Aug, [facility] [address] [id number] [address] [place] [address] Aug, [facility] [address] [id number] [address] [place] [address] Aug, [facility] [address] [facility] [place] [id number] [address] [place] [address] Aug, [facility] [address] [id number] [address] [place] [address] Aug, [facility] [address] [id number] [address] [place] [address] Aug, [facility] [address] [id number] [address] [place] [address] Aug, [facility] [address] [id number] [address] [place] [address] Aug, [facility] [address] [facility] [place] [id number] [address] [place] [address] Aug, [facility] [address] [id number] [address] [place] [address], [place] [address] 12 Aug, 2014 [facility] [address] [id number] [address] [place] [address], [place] [address] Aug, [facility] [address] [id number] [address] [place] [address], [place] [address] Aug, [facility] [address] [id number] [address] [place] [address], [place] [address] Aug, [facility] [address] [id number] [address] [place] [address], [place] [address] Aug, [facility] [address] [id number] [address] [place] [address], [place] [address] Aug, [facility] [address] [id number] [address] [place] [address], [place] [address] Aug, [facility] [address] [id number] [address] [place] [address], [place] [address] Aug, [facility] [address] [id number] [address] [place] [address], [place] [address] Aug, [facility] [address] [id number] [address] [place] [address], [place] [address] Aug, [facility] [address] [id number] [address] [place] [address], [place] [address] Aug, [facility] [address] [id number] [address] [place] [address], [place] [address] Aug, [facility] [address] [id number] [address] [place] [address], [place] [address] Aug, [facility] [address] [id number] [address] [place] [address], [place] [address] Aug, [facility] [address] [id number] [address] [place] [address], [place] [address] Aug, [facility] [address] [id number] [address] [place] [address], [place] [address] Aug, [facility] [address] [id number] [address] [place] [address], [place] [address] Aug, [facility] [address] [id number] [address] [place] [address], [place] [address] Aug, [facility] [address] [id number] [address] [place] [address], [place] [address] Jul, [facility] [address] [id number] [address] [place] [address], [place] [address] Jul, [facility] [address] [id number] [address] [place] [address], [place] [address] Jul, [facility] [address] [id number] [address] [place] [address], [place] [address] Jul, [facility] [address] [id number] [address] [place] [address], [place] [address] Jul, [facility] [address] [id number] [address] [place] [address], [place] [address] Jul, [facility] [address] [id number] [address] [place] [address], [place] [address] Jul, [facility] [address] [id number] [address] [place] [address], [place] [address] Jul, [facility] [address] [id number] [address] [place] [address], [place] [address] Jun, [facility] [address] [id number] [address] [place] [address], [place] [address] Jun, [facility] [address] [id number] [address] [place] [address], [place] [address] Jun, [facility] [address] [id number] [address] [place] [address], [place] [address] Jun, [facility] [address] [id number] [address] [place] [address], [place] [address] May, [facility] [address] [id number] [address] [place] [address] May, [facility] [address] [facility] [place] [id number] [address] [place] [address] May, [facility] [address] [facility] [place] [id number] [address] [place] [address] May, [facility] [address] [facility] [place] [id number] [address] [place] [address] May, [facility] [address] [facility] [place] [id number] [address] [place] [id number] Apr, [facility] [address] [facility] [place] [id number] [address] [place] [id number] Apr, IMMUNIZATIONS No Known Immunizations SOCIAL HISTORY Never Assessed REASON FOR VISIT NIRU gooden/Nayana BURGOS PLAN OF CARE Activity Details Follow Up 4 Months Reason: VITAL SIGNS Height 64 in 2017-07-06 Weight 158.4 lbs 2017-07-06 Heart Rate 78 bpm 2017-07-06 Respiratory Rate 18 2017-07-06 BMI 27.19 kg/m2 2017-07-06 Blood pressure systolic 128 mmHg 2017-07-06 Blood pressure diastolic 78 mmHg 2017-07-06 MEDICATIONS Medication Instructions Dosage Frequency Start Date End Date Duration S tatus Vitamin C 500 mg 1 tablet by Oral route 1 time per day 3 0 Apr, 2014 Active Anusol-HC 25 mg by Rectal route 2 times per day Aug, Active Viagra 50 MG Orally PRN 1 tablet as needed October, Not-Taking Multivitamin 1 tablet by Oral route 1 time per day 30 2013 Active Vitamin D3 5000 UNIT Orally Once a day 1 capsule 24h Apr, Active Atorvastatin Calcium 20 MG Orally Once a day 1 tablet 24h 30 Active Vyvanse 30 MG Orally Once a day for ADHD 1 capsule in the morning Jun, Active Skelaxin 800 mg 1 Tablet by Oral route 3-4 times per d ay PRN muscle spasm Aug, Not-Taking Omeprazole 20 MG TAKE ONE CAPSULE BY MOUTH ONCE DAILY 30 Active Pseudoephedrine HCl 60 mg Orally every 6 hrs 1 tablet as needed 6h 10 Oct, 2016 8 days Not-Taking Lisinopril 20 MG Orally Once a day 1 tablet 24h 30 Active Colace 100 mg 1 capsule by Oral route 2 times per day PRN Apr, Active Aspirin 325 mg 1 tablet by Oral route 1 time per day Apr, Active HydrOXYzine Pamoate 25 MG Orally 2 times a day as need for a nxiety 1 capsule as needed Jun, Not-Taking Lamotrigine 200 mg Orally in the evening for depression 1 tablet Active RESULTS No Results PROCEDURES No Known procedures INSTRUCTIONS MEDICATIONS ADMINISTERED No Known Medications MEDICAL (GENERAL) HISTORY Type Description Date Medical History Hypertension Medical History GERD Medical History Bipolar Surgical History Hernia right ingual Surgical History Colonoscopy october 2014 Hospitalization History surgeries Hospitalization History ER for dehydration and vomitting 10/04/15
--- OUTSIDE RECORDS SUMMARY | 2019-11-11 19:16 | XMS REPORT ---
Author [place] [facility] eClinicalWorks Address Unknown Phone Unavailable Care Team Providers Care Electronics Engineering Technician Name Role Phone FALLON JOHNSON CP [...] Problem Blood in stool 578.1 Active Assessment Hyperlipidemia E78.5 Active Problem Reflux esophagitis 530.11 Active Medications Medication Code System Code Instructions Start Date End Date Status Dosage Lamictal [facility] [address]-78 100 MG Orally Once at night Apr 21, 2015 1 tablets Omeprazole [facility] [address]-41 20 MG Orally Once a day May 01, 2014 1 capsule atorvastatin [facility] 0 20 mg Once a day May 01, 2014 take 1 tablet by Oral route 1 time per day QHS; Avoid grapefruit juice Vitamin D3 [facility] 65855-99204 1,000 unit May 01, 2014 2 Capsule 1 time per day take one tablet orally daily Aspirin [facility] [address]-51 325 mg May 01, 2014 1 ta blet by Oral route 1 time per day Viagra [facility] [address]-36 50 MG Orally PRN November 04, 2014 1 tablet as needed Adderall [facility] [address]-81 20 MG Orally in the AM & 1pm for ADHD Dr. Johnson to sign for Rafaela September 16, 2014 1 tablet Vitamin C [facility] [address]-96 500 mg May 01, 2014 1 tablet by Oral route 1 time per day Multivitamin [facility] 48109-58089 May 01, 2014 1 tablet by Oral route 1 time per day Colace [facility] [address]-50 100 mg May 01, 2014 1 ca psule by Oral route 2 times per day PRN Anusol-HC [facility] [address]-24 25 mg September 23, 2014 b y Rectal route 2 times per day Lisinopril [facility] [address]-56 10 MG Orally Once a day Jul 07, 2015 1 tablet Procedures Procedure Coding System Code Date Office Visit, Est Pt., Level 3 CPT-4 62958 J 2015 Vital Signs Date/Time: Jul 07, 2015 Temperature 98.6 F Weight 150.6 lbs Height 64 in BMI 25.85 Index Blood Pressure Diastolic 84 mmHg Blood Pressure Systolic 146 mmHg Cardiac Monitoring Heart Rate 98 bpm Results No Known Results Summary Purpose eClinicalWorks Submission
--- OUTSIDE RECORDS SUMMARY | 2019-11-11 19:16 | XMS REPORT ---
Author Author [place] Organization [facility] Address [address] [place] [address] Care Team Providers Care Manager Commercial Sales Name Role Phone GUILLERMO [facility] Unavailable PROBLEMS Type Condition ICD9-CM Code [id number] Code Onset Dates Condition S tatus SNOMED Code Problem Posttraumatic stress disorder F43.10 Active 48709217 Problem Attention deficit disorder F90.0 Act shalom 867355508 Problem Bipolar 2 disorder F31.81 Active 8 9454446 Problem Chronic post-traumatic stress disorder (PTSD) F43. 12 Active 748612143 Problem Urinary hesitancy R39.11 Active 59 22200 Problem Hyperlipidemia E78.5 Active 50472 004 Problem Social anxiety disorder F40.10 Active 04667597 Problem Gastroesophageal reflux disease without esophagitis K21.9 Active 989395179 Problem Hypertension I10 Active 3835413 3 ALLERGIES No Information SOCIAL HISTORY Never Assessed PLAN OF CARE VITAL SIGNS MEDICATIONS Medication Instructions Dosage Frequency Start Date End Date Duration S tatus Adderall 5 mg Orally at 4pm for ADHD 1 tablet Aug, 28 days Active Adderall 20 mg Orally in the AM &1pm for ADHD 1 tablet Aug, 2 017 28 days Active RESULTS No Results PROCEDURES No Known procedures IMMUNIZATIONS No Known Immunizations MEDICAL (GENERAL) HISTORY Type Description Date Medical History Hypertension Medical History GERD Medical History Bipolar Surgical History Hernia right ingual Surgical History Colonoscopy october 2014 Hospitalization History surgeries Hospitalization History ER for dehydration and vomitting 10/04/15
--- OUTSIDE RECORDS SUMMARY | 2019-11-11 19:16 | XMS REPORT | Continuity of Care Document ---
Author Organization Unknown Address Unknown Phone Unavailable Allergies Active Description Code Type Severity Reaction Onset Reported/Identified Relationship to Patient Clinical Status Yes codeine [id number] Drug Allergy Unknown N/A 09/29/2014 Medications There is no data. Problems Date Dx Coded Attending Type Code Diagnosis Diagnosed By 05/01/2014 GUILLERMO MCCORD APRN 296.89 MO BIPOLAR II 05/01/2014 GUILLERMO MCCORD APRN 300.23 AN SOCIAL PHOBIA 05/01/2014 GUILLERMO MCCORD APRN 309.81 AN PTSD 05/01/2014 GUILLERMO MCCORD APRN 314.00 ADHD INATTENTIVE 05/01/2014 GUILLERMO MCCORD APRN 296.89 MO BIPOLAR II 05/01/2014 GUILLERMO MCCORD APRN 300.23 AN SOCIAL PHOBIA 05/01/2014 GUILLERMO MCCORD APRN 309.81 AN PTSD 05/01/2014 GUILLERMO MCCORD APRN 314.00 ADHD INATTENTIVE 05/01/2014 DONNA GALEANO, SKYLRA R 296.89 MO BIPOLAR II 05/01/2014 DONNA GALEANO, SKYLAR R 300.23 AN SOCIAL PHOBIA 05/01/2014 DONNA LAZCANOCS, SKYLAR R 309.81 AN PTSD 05/01/2014 DONNA GALEANO SKYLAR R 314.00 ADHD INATTENTIVE 05/01/2014 FALLON JOHNSON MD 296.8 9 MO BIPOLAR II 05/01/2014 FALLON JOHNSON MD 300.2 3 AN SOCIAL PHOBIA 05/01/2014 FALLON JOHNSON MD 309.8 1 AN PTSD 05/01/2014 FALLON JOHNSON MD 314.0 0 ADHD INATTENTIVE 05/01/2014 GUILLERMO MCCORD APRN 296.89 MO BIPOLAR II 05/01/2014 GUILLERMO MCCORD APRN 300.23 AN SOCIAL PHOBIA 05/01/2014 GUILLERMO MCCORD APRN 309.81 AN PTSD 05/01/2014 GUILLERMO MCCORD APRN 314.00 ADHD INATTENTIVE 05/01/2014 FALLON JOHNSON MD 296.8 9 MO BIPOLAR II 05/01/2014 FALLON JOHNSON MD 300.2 3 AN SOCIAL PHOBIA 05/01/2014 FALLON JOHNSON MD 309.8 1 AN PTSD 05/01/2014 FALLON JOHNSON MD 314.0 0 ADHD INATTENTIVE 05/01/2014 DONNA LSCS, SKYLAR R 296.89 MO BIPOLAR II 05/01/2014 DONNA LSCS, SKYLAR R 300.23 AN SOCIAL PHOBIA 05/01/2014 DONNA LSCS, SKYLAR R 309.81 AN PTSD 05/01/2014 DONNA LSCS, SKYLAR R 314.00 ADHD INATTENTIVE 05/01/2014 GUILLERMO MCCORD APRN J 296.89 MO BIPOLAR II 05/01/2014 GUILLERMO MCCORD APRN J 300.23 AN SOCIAL PHOBIA 05/01/2014 PALLAVI MCCORD APRNA J 309.81 AN PTSD 05/01/2014 PALLAVI MCCORD APRNA J 314.00 ADHD INATTENTIVE 05/01/2014 DONNA LSCS, SKYLAR R 296.89 MO BIPOLAR II 05/01/2014 DONNA LSCS, SKYLAR R 300.23 AN SOCIAL PHOBIA 05/01/2014 DONNA LSCS, SKYLAR R 309.81 AN PTSD 05/01/2014 DONNA LSCS, SKYLAR R 314.00 ADHD INATTENTIVE 05/01/2014 DONNA LSCS, SKYLAR R 296.89 MO BIPOLAR II 05/01/2014 DONNA LSCS, SKYLAR R 300.23 AN SOCIAL PHOBIA 05/01/2014 DONNA LSCS, SKYLAR R 309.81 AN PTSD 05/01/2014 DONNA LSCS, SKYLAR R 314.00 ADHD INATTENTIVE 07/10/2014 FALLON JOHNSON MD 272.4 OTHER AND UNSPECIFIED HYPERLIPIDEMIA 07/10/2014 FALLON JOHNSON MD 530.1 1 REFLUX ESOPHAGITIS 07/10/2014 FALLON JOHNSON MD 780.7 9 OTHER MALAISE AND FATIGUE 07/10/2014 FALLON JOHNSON MD 782.0 DISTURBANCE OF SKIN SENSATION 07/10/2014 GUILLERMO MCCORD APRN J 272.4 OTHER AND UNSPECIFIED HYPERLIPIDEMIA 07/10/2014 GUILLERMO MCCORD APRN J 530.11 REFLUX ESOPHAGITIS 07/10/2014 GUILLERMO MCCORD APRN J 780.79 OTHER MALAISE AND FATIGUE 07/10/2014 FLEX ASCENCIO, GUILLERMO J 782.0 DISTURBANCE OF SKIN SENSATION 07/10/2014 FALLON JOHNSON MD 272.4 OTHER AND UNSPECIFIED HYPERLIPIDEMIA 07/10/2014 FALLON JOHNSON MD 530.1 1 REFLUX ESOPHAGITIS 07/10/2014 FALLON JOHNSON MD 780.7 9 OTHER MALAISE AND FATIGUE 07/10/2014 FALLON JOHNSON MD 782.0 DISTURBANCE OF SKIN SENSATION 07/10/2014 DONNA LSCS, SKYLAR R 272.4 OTHER AND UNSPECIFIED HYPERLIPIDEMIA 07/10/2014 DONNA LSCS, SKYLAR R 530.11 REFLUX ESOPHAGITIS 07/10/2014 DONNA LSCS, SKYLAR R 780.79 OTHER MALAISE AND FATIGUE 07/10/2014 DONNA LSCS, SKYLAR R 782.0 DISTURBANCE OF SKIN SENSATION 07/10/2014 FLEX ASCENCIO GUILLERMO J 272.4 OTHER AND UNSPECIFIED HYPERLIPIDEMIA 07/10/2014 FLEX ASCENCIO GUILLERMO J 530.11 REFLUX ESOPHAGITIS 07/10/2014 FLEX ASCENCIO, GUILLERMO J 780.79 OTHER MALAISE AND FATIGUE 07/10/2014 FLEX ASCENCIO, GUILLERMO J 782.0 DISTURBANCE OF SKIN SENSATION 07/10/2014 DONNA LSCS, SKYLAR R 272.4 OTHER AND UNSPECIFIED HYPERLIPIDEMIA 07/10/2014 DONNA LSCS, SKYLAR R 530.11 REFLUX ESOPHAGITIS 07/10/2014 DONNA LSCS, SKYLAR R 780.79 OTHER MALAISE AND FATIGUE 07/10/2014 DONNA LSCS, SKYLAR R 782.0 DISTURBANCE OF SKIN SENSATION 07/10/2014 DONNA LSCS, SKYLAR R 272.4 OTHER AND UNSPECIFIED HYPERLIPIDEMIA 07/10/2014 DONNA LSCS, SKYLAR R 530.11 REFLUX ESOPHAGITIS 07/10/2014 DONNA LSCS, SKYLAR R 780.79 OTHER MALAISE AND FATIGUE 07/10/2014 DONNA LSCS, SKYLAR R 782.0 DISTURBANCE OF SKIN SENSATION 09/23/2014 FALLON JOHNSON MD 565.0 ANAL FISSURE 09/23/2014 FALLON JOHNSON MD 578.1 BLOOD IN STOOL 09/23/2014 DONNA LSCS, SKYLAR R 565.0 ANAL FISSURE 09/23/2014 DONNA LSCS, SKYLAR R 578.1 BLOOD IN STOOL 09/23/2014 CARON MCOCRD APRNINDA J 565.0 ANAL FISSURE 09/23/2014 FLEX LAUNDRY EQUIPMENT OPERATOR, GUILLERMO J 578.1 BLOOD IN STOOL 09/23/2014 DONNA LSCS, SKYLAR R 565.0 ANAL FISSURE 09/23/2014 DONNA LSCS, SKYLAR R 578.1 BLOOD IN STOOL 09/23/2014 DONNA LSCS, SKYLAR R 565.0 ANAL FISSURE 09/23/2014 DONNA LSCS, SKYLAR R 578.1 BLOOD IN STOOL 09/29/2014 HERMANN LEON, JESUS Downs Ot V72.84 09/29/2014 HERMANN LEON, JESUS Downs Ot 401.9 HYPERTENSION NOS 09/29/2014 HERMANN LEON, JESUS Downs Ot 455.6 HEMORRHOIDS NOS 09/29/2014 HERMANN LEON, JESUS Downs Ot 565.0 ANAL FISSURE 10/08/2014 HERMANN LEON, JESUS Downs Ot V72.84 10/04/2015 Ot D72.829 EL EVATED WHITE BLOOD CELL COUNT, UNSPECI 10/04/2015 Ot E86.1 HYPO VOLEMIA 10/04/2015 Ot R07.89 OT ER CHEST PAIN 10/04/2015 Ot R11.2 NAUS EA WITH VOMITING, UNSPECIFIED 10/04/2015 Ot R19.7 DIAR BOO, UNSPECIFIED 10/06/2015 Ot D72.829 10/06/2015 Ot E86.1 10/06/2015 Ot R07.89 10/06/2015 Ot R11.2 10/06/2015 Ot R19.7 08/23/2017 HERMANN LEON, JESUS Downs Ot V72.84 EXAM PRE-OPERATIVE NOS 04/13/2018 MARVIN VERDUZCO MD Ot E78. 00 PURE HYPERCHOLESTEROLEMIA, UNSPECIFIED 04/13/2018 MARVIN VERDUZCO MD Ot E78. 2 MIXED HYPERLIPIDEMIA 04/13/2018 MARVIN VERDUZCO MD Ot I10 ESSENTIAL (PRIMARY) HYPERTENSION 04/13/2018 MARVIN VERDUZCO MD Ot K21. 9 GASTRO-ESOPHAGEAL REFLUX DISEASE WITHOUT 04/13/2018 MARVIN VERDUZCO MD Ot R07. 89 OTHER CHEST PAIN 04/30/2018 HERMANN LEON, JESUS Downs Ot V72.84 EXAM PRE-OPERATIVE NOS 04/30/2018 LUBA MD, BASHAR J Ot E78. 00 PURE HYPERCHOLESTEROLEMIA, UNSPECIFIED 04/30/2018 MARVIN VERDUZCO MD J Ot E78. 2 MIXED HYPERLIPIDEMIA 04/30/2018 MARVIN VERDUZCO MD J Ot I10 ESSENTIAL (PRIMARY) HYPERTENSION 04/30/2018 MARVIN VERDUZCO MD J Ot K21. 9 GASTRO-ESOPHAGEAL REFLUX DISEASE WITHOUT 04/30/2018 MARVIN VERDUZCO MD J Ot R07. 89 OTHER CHEST PAIN 05/01/2018 MARVIN VERDUZCO MD J Ot E78. 00 PURE HYPERCHOLESTEROLEMIA, UNSPECIFIED 05/01/2018 MARVIN VERDUZCO MD J Ot E78. 2 MIXED HYPERLIPIDEMIA 05/01/2018 MARVIN VERDUZCO MD J Ot I07. 1 RHEUMATIC TRICUSPID INSUFFICIENCY 05/01/2018 MARVIN VERDUZCO MD J Ot I10 ESSENTIAL (PRIMARY) HYPERTENSION 05/01/2018 MARVIN VERDUZCO MD J Ot K21. 9 GASTRO-ESOPHAGEAL REFLUX DISEASE WITHOUT 05/01/2018 MARVIN VERDUZCO MD J Ot R07. 89 OTHER CHEST PAIN 05/06/2018 MARVIN VERDUZCO MD J Ot E78. 00 PURE HYPERCHOLESTEROLEMIA, UNSPECIFIED 05/06/2018 MARVIN VERDUZCO MD J Ot E78. 2 MIXED HYPERLIPIDEMIA 05/06/2018 MARVIN VERDUCZO MD J Ot I07. 1 RHEUMATIC TRICUSPID INSUFFICIENCY 05/06/2018 MARVIN VERDUZCO MD J Ot I10 ESSENTIAL (PRIMARY) HYPERTENSION 05/06/2018 MARVIN VERDUZCO MD J Ot K21. 9 GASTRO-ESOPHAGEAL REFLUX DISEASE WITHOUT 05/06/2018 MARVIN VERDUZCO MD J Ot R07. 89 OTHER CHEST PAIN 05/10/2018 MARVIN VERDUZCO MD Ot E78. 00 PURE HYPERCHOLESTEROLEMIA, UNSPECIFIED 05/10/2018 MARVIN VERDUZCO MD J Ot E78. 2 MIXED HYPERLIPIDEMIA 05/10/2018 MARVIN VERDUZCO MD J Ot I10 ESSENTIAL (PRIMARY) HYPERTENSION 05/10/2018 MARVIN VERDUZCO MD J Ot K21. 9 GASTRO-ESOPHAGEAL REFLUX DISEASE WITHOUT 05/10/2018 MARVIN VERDUZCO MD J Ot R07. 89 OTHER CHEST PAIN 12/17/2018 MARVIN VERDUZCO MD Ot E78. 00 PURE HYPERCHOLESTEROLEMIA, UNSPECIFIED 12/17/2018 MARVIN VERDUZCO MD J Ot E78. 2 MIXED HYPERLIPIDEMIA 12/17/2018 MARVIN VERDUZCO MD J Ot I07. 1 RHEUMATIC TRICUSPID INSUFFICIENCY 12/17/2018 MARVIN VERDUZCO MD, Ot I10 ESSENTIAL (PRIMARY) HYPERTENSION 12/17/2018 MARVIN VERDUZCO MD, Ot K21. 9 GASTRO-ESOPHAGEAL REFLUX DISEASE WITHOUT 12/17/2018 LUBA LEON, MARVIN Ortega Ot R07. 89 OTHER CHEST PAIN Procedures Code Description [place] [address] PSYC H DIAGNOSTIC EVALUATION 06/20/2014 08001 ROUT INE VENIPUNCTURE 07/11/2014 7320420 GF R CALC (RESULT ONLY) 07/11/2014 08597 CMP 07/11/2014 48951 LIPI D PANEL 07/11/2014 00909 TSH 07/11/2014 General S Jesus Mccrary 09/23/2014 78499 PSYT X PT&/FAMILY 45 MINUTES 09/25/2014 92274 PSYT X PT&/FAMILY 45 MINUTES 10/09/2014 86410 PSYT X PT&/FAMILY 45 MINUTES 10/28/2014 Results Test Result Range Comp. Metabolic Panel (14) - 04/11/16 10 :47 Glucose, Serum 102 mg/dL 65-99 BUN 16 mg/dL 6-24 Creatinine, Serum 1.13 mg/dL 0.76-1.27 eGFR If NonAfricn Am 76 mL/min/1.73 >59 eGFR If Africn Am 88 mL/min/1.73 >59 BUN/Creatinine Ratio 14 9-20 Sodium, Serum 137 mmol/L 134-144 Potassium, Serum 4.7 mmol/L 3.5-5.2 Chloride, Serum 99 mmol/L 97-108 Carbon Dioxide, Total 23 mmol/L 18-29 Calcium, Serum 9.7 mg/dL 8.7-10.2 Protein, Total, Serum 6.9 g/dL 6.0-8.5 Albumin, Serum 4.7 g/dL 3.5-5.5 Globulin, Total 2.2 g/dL 1.5-4.5 A/G Ratio 2.1 1.1-2.5 Bilirubin, Total 0.3 mg/dL 0.0-1.2 Alkaline Phosphatase, S 90 IU/L 39-117 AST (SGOT) 26 IU/L 0-40 ALT (SGPT) 36 IU/L 0-44 Lipid Panel - 04/11/16 10:47 Cholesterol, Total 187 mg/dL 100-199 Triglycerides 90 mg/dL 0-149 HDL Cholesterol 45 mg/dL >39 VLDL Cholesterol Vin 18 mg/dL 5-40 LDL Cholesterol Calc 124 mg/dL 0-99 Prostate-Specific Ag, Serum - 04/11/16 1 0:47 Prostate Specific Ag, Serum 2.0 ng/mL 0. 0-4.0 Comp. Metabolic Panel (14) - 04/13/17 09 :00 Glucose, Serum 104 mg/dL 65-99 BUN 18 mg/dL 6-24 Creatinine, Serum 1.25 mg/dL 0.76-1.27 eGFR If NonAfricn Am 67 mL/min/1.73 >59 eGFR If Africn Am 78 mL/min/1.73 >59 BUN/Creatinine Ratio 14 9-20 Sodium, Serum 138 mmol/L 134-144 Potassium, Serum 4.4 mmol/L 3.5-5.2 Chloride, Serum 99 mmol/L 96-106 Carbon Dioxide, Total 25 mmol/L 18-29 Calcium, Serum 9.8 mg/dL 8.7-10.2 Protein, Total, Serum 6.7 g/dL 6.0-8.5 Albumin, Serum 4.3 g/dL 3.5-5.5 Globulin, Total 2.4 g/dL 1.5-4.5 A/G Ratio 1.8 1.2-2.2 Bilirubin, Total 0.4 mg/dL 0.0-1.2 Alkaline Phosphatase, S 91 IU/L 39-117 AST (SGOT) 18 IU/L 0-40 ALT (SGPT) 28 IU/L 0-44 Lipid Panel - 04/13/17 09:00 Cholesterol, Total 193 mg/dL 100-199 Triglycerides 118 mg/dL 0-149 HDL Cholesterol 46 mg/dL >39 VLDL Cholesterol Vin 24 mg/dL 5-40 LDL Cholesterol Calc 123 mg/dL 0-99 CMP - 04/13/17 09:00 Glucose, Serum 104 mg/dL 65-99 BUN 18 mg/dL 6-24 Creatinine, Serum 1.25 mg/dL 0.76-1.27 eGFR If NonAfricn Am 67 mL/min/1.73 >59 eGFR If Africn Am 78 mL/min/1.73 >59 BUN/Creatinine Ratio 14 9-20 Sodium, Serum 138 mmol/L 134-144 Potassium, Serum 4.4 mmol/L 3.5-5.2 Chloride, Serum 99 mmol/L 96-106 Carbon Dioxide, Total 25 mmol/L 18-29 Calcium, Serum 9.8 mg/dL 8.7-10.2 Protein, Total, Serum 6.7 g/dL 6.0-8.5 Albumin, Serum 4.3 g/dL 3.5-5.5 Globulin, Total 2.4 g/dL 1.5-4.5 A/G Ratio 1.8 1.2-2.2 Bilirubin, Total 0.4 mg/dL 0.0-1.2 Alkaline Phosphatase, S 91 IU/L 39-117 AST (SGOT) 18 IU/L 0-40 ALT (SGPT) 28 IU/L 0-44 CMP - 03/23/18 08:31 GLUCOSE 99 mg/dL 65-99 UREA NITROGEN (BUN) 24 mg/dL 7-25 CREATININE 1.30 mg/dL 0.70-1.33 eGFR NON-AFR. NEW ZEALANDER 64 mL/min/1.73m2 > OR = 60 eGFR 74 mL/min/1.73m2 > OR = 60 BUN/CREATININE RATIO NOT APPLICABLE (calc) 6-22 SODIUM 139 mmol/L 135-146 POTASSIUM 4.4 mmol/L 3.5-5.3 CHLORIDE 103 mmol/L 98-110 CARBON DIOXIDE 27 mmol/L 20-32 CALCIUM 10.2 mg/dL 8.6-10.3 PROTEIN, TOTAL 7.4 g/dL 6.1-8.1 ALBUMIN 4.7 g/dL 3.6-5.1 GLOBULIN 2.7 g/dL (calc) 1.9-3.7 ALBUMIN/GLOBULIN RATIO 1.7 (calc) 1.0-2. 5 BILIRUBIN, TOTAL 0.5 mg/dL 0.2-1.2 ALKALINE PHOSPHATASE 85 U/L 40-115 AST 13 U/L 10-35 ALT 20 U/L 9-46 PSA - 03/23/18 08:31 PSA, TOTAL 1.1 ng/mL < OR = 4.0 PDM - PANEL (PROFILE 1) - 05/03/18 10 :09 Creatinine 115.5 mg/dL > or = 20.0 pH 6.72 4.5 - 9.0 Oxidant NEGATIVE mcg/mL <200 Amphetamines POSITIVE ng/mL <500 Benzodiazepines NEGATIVE ng/mL <100 medMATCH Benzodiazepines CONSISTENT NRG Marijuana Metabolite NEGATIVE ng/mL <20 medMATCH Marijuana Metab CONSISTENT NRG Cocaine Metabolite NEGATIVE ng/mL <150 medMATCH Cocaine Metab CONSISTENT NRG Opiates NEGATIVE ng/mL <100 medMATCH Opiates CONSISTENT NRG Oxycodone NEGATIVE ng/mL <100 medMATCH Oxycodone CONSISTENT NRG COMMENT NRG Amphetamine 1996 ng/mL <250 medMATCH Amphetamine INCONSISTENT NRG Methamphetamine NEGATIVE ng/mL <250 medMATCH Methamphetamine CONSISTENT NRG Barbiturates NEGATIVE ng/mL <300 medMATCH Barbiturates CONSISTENT NRG Methadone Metabolite NEGATIVE ng/mL <100 medMATCH Methadone Metab CONSISTENT NRG Phencyclidine NEGATIVE ng/mL <25 medMATCH Phencyclidine CONSISTENT NRG LIPID PANEL - 08/30/19 10:12 CHOLESTEROL, TOTAL 204 mg/dL <200 HDL CHOLESTEROL 45 mg/dL > OR = 40 TRIGLYCERIDES 235 mg/dL <150 LDL-CHOLESTEROL 123 mg/dL (calc) NRG CHOL/HDLC RATIO 4.5 (calc) <5.0 NON HDL CHOLESTEROL 159 mg/dL (calc) <13 0 CMP - 08/30/19 10:12 GLUCOSE 116 mg/dL 65-139 UREA NITROGEN (BUN) 21 mg/dL 7-25 CREATININE 1.43 mg/dL 0.70-1.33 eGFR NON-AFR. [place]ER 56 mL/min/1.73m2 > OR = 60 eGFR 65 mL/min/1.73m2 > OR = 60 BUN/CREATININE RATIO 15 (calc) 6-22 SODIUM 139 mmol/L 135-146 POTASSIUM 4.6 mmol/L 3.5-5.3 CHLORIDE 103 mmol/L 98-110 CARBON DIOXIDE 26 mmol/L 20-32 CALCIUM 9.9 mg/dL 8.6-10.3 PROTEIN, TOTAL 6.9 g/dL 6.1-8.1 ALBUMIN 4.6 g/dL 3.6-5.1 GLOBULIN 2.3 g/dL (calc) 1.9-3.7 ALBUMIN/GLOBULIN RATIO 2.0 (calc) 1.0-2. 5 BILIRUBIN, TOTAL 0.6 mg/dL 0.2-1.2 ALKALINE PHOSPHATASE 92 U/L 35-144 AST 27 U/L 10-35 ALT 44 U/L 9-46 PROTEIN, TOTAL W/CREAT, RANDOM URINE - 0 10/10/19 09:56 CREATININE, RANDOM URINE 113 mg/dL 20-32 0 PROTEIN/CREATININE RATIO 53 mg/g creat 2 2-128 PROTEIN, TOTAL, RANDOM UR 6 mg/dL 5-25 UA W/ MICROSCOPY - 10/10/19 09:56 COLOR YELLOW YELLOW APPEARANCE CLEAR CLEAR SPECIFIC GRAVITY 1.019 1.001-1.035 PH 5.5 5.0-8.0 GLUCOSE NEGATIVE NEGATIVE BILIRUBIN NEGATIVE NEGATIVE KETONES NEGATIVE NEGATIVE OCCULT BLOOD NEGATIVE NEGATIVE PROTEIN NEGATIVE NEGATIVE NITRITE NEGATIVE NEGATIVE LEUKOCYTE ESTERASE NEGATIVE NEGATIVE WBC NONE SEEN /HPF < OR = 5 RBC NONE SEEN /HPF < OR = 2 SQUAMOUS EPITHELIAL CELLS NONE SEEN /HPF < OR = 5 BACTERIA NONE SEEN /HPF NONE SEEN HYALINE CAST NONE SEEN /LPF NONE SEEN Complete blood count (CBC) with automate d white blood cell (WBC) differential - 11/11/19 15:05 Blood leukocytes automated count (number/volume) 11.2 10*3/uL 4.3-11.0 Blood erythrocytes automated count (number/volume) 4.99 10*6/uL 4.35-5.85 Venous blood hemoglobin measurement (mass/volume) 15.6 g/dL 13.3-17.7 Blood hematocrit (volume fraction) 46 % 40-54 Automated erythrocyte mean corpuscular volume 91 [ foz_us] 80-99 Automated erythrocyte mean corpuscular h emoglobin (mass per erythrocyte) 31 pg 25-34 Automated erythrocyte mean corpuscular h emoglobin concentration measurement (mass/volume) 34 g/dL 32-36 Automated erythrocyte distribution width ratio 12. 3 % 10.0- 14.5 Automated blood platelet count (count/volume) 295 10*3/uL 130-400 Automated blood platelet mean volume measurement 9.9 [foz_us] 7.4-10.4 Automated blood neutrophils/100 leukocytes 73 % 42-75 Automated blood lymphocytes/100 leukocytes 20 % 12-44 Blood monocytes/100 leukocytes 7 % 0-12 Automated blood eosinophils/100 leukocytes 1 % 0-10 Automated blood basophils/100 leukocytes 0 % 0-10 Blood neutrophils automated count (number/volume) 8.2 10*3 1.8-7.8 Blood lymphocytes automated count (number/volume) 2.2 10*3 1.0-4.0 Blood monocytes automated count (number/volume) 0. 8 10*3 0.0-1.0 Automated eosinophil count 0.1 10*3/uL 0 .0-0.3 Automated blood basophil count (count/volume) 0.0 10*3/uL 0.0-0.1 Whole blood basic metabolic panel - 10/31 07/22 15:05 Serum or plasma sodium measurement (moles/volume) 138 mmol/L 135-145 Serum or plasma potassium measurement (moles/volume) 4.0 mmol/L 3.6-5.0 Serum or plasma chloride measurement (moles/volume) 107 mmol/L 98-107 Carbon dioxide 21 mmol/L 21-32 Serum or plasma anion gap determination (moles/volume) 10 mmol/L 5-14 Serum or plasma urea nitrogen measurement (mass/volume ) 19 mg/dL 7-18 Serum or plasma creatinine measurement (mass/volume) 1.36 mg/dL 0.60-1.30 Serum or plasma urea nitrogen/creatinine mass ratio 14 NRG Serum or plasma creatinine measurement w ith calculation of estimated glomerular filtration rate 55 NRG Serum or plasma glucose measurement (mass/volume) 90 mg/dL 70-105 Serum or plasma calcium measurement (mass/volume) 9.8 mg/dL 8.5-10.1 Serum or plasma C reactive protein measu rement (mass/volume) - 11/11/19 15:05 Serum or plasma C reactive protein measurement (mass/v olume) 0.09 mg/dL 0.00-0.50 Encounters ACCT No. Visit Date/Time Discharge Status Pt. Type Provider Facility Loc./Unit Complaint [id number] 10/28/2014 11:55:00 10/28/2014 23:59: 59 [id number] 10/09/2014 10:55:00 10/09/2014 23:59: 59 [facility] [id number] 09/25/2014 09:59:00 09/25/2014 23:59: 59 [facility] [id number] 09/23/2014 09:12:00 09/23/2014 23:59: 59 [facility] Outpatient FALLON JOHNSON MD [id number] 09/11/2014 12:56:00 09/11/2014 23:59: 59 [facility] Outpatient GUILLERMO MCCORD APRN [id number] 07/24/2014 12:50:00 07/24/2014 23:59: 59 [facility] GUILLERMO MCCORD APRN [id number] 07/11/2014 08:04:00 07/11/2014 23:59: 59 [facility] Outpatient FALLON JOHNSON MD [id number] 06/20/2014 09:53:00 06/20/2014 23:59: 59 [facility] Outpatient SKYLAR GARCIA [id number] 05/27/2014 14:25:00 05/27/2014 23:59: 59 [facility] Outpatient GUILLERMO MCCORD APRN [id number] 05/01/2014 09:57:00 05/01/2014 23:59: 59 [facility] Outpatient GUILLERMO MCCORD APRN [id number] 04/14/2017 08:45:00 Document Registration [id number] 11/11/2019 14:56:00 16:49:00 DIS Emergency JUANA MAURICIO APRN [facility] ER BACK PAIN [id number] 04/30/2018 08:43:00 23:59:59 [facility] Outpatient MARVIN VERDUZCO MD [facility] CARD ANTERIOR CHEST WALL THAO N [id number] 04/11/2018 07:31:00 23:59:59 [facility] Outpatient MARVIN VERDUZCO MD [facility] CARD ANTERIOR CHEST WALL THAO N [id number] 09/29/2014 09:46:00 015 13:40:00 DIS Outpatient JESUS MCCRARY MD [facility] RECTAL BLEEDING; ANAL FISSURE [id number] 09/25/2014 05:54:00 015 23:59:59 [facility] Outpatient JESUS MCCRARY MD [facility] PREOP RECTAL BLEEDING, ANAL FISSURE [id number] 02/06/2013 12:14:00 013 20:10:00 DIS Outpatient [id number] 02/04/2013 12:56:00 013 23:59:59 [facility] Outpatient [id number] 10/04/2015 09:56:00 Document Registration [id number] 04/12/2016 08:35:00 Document Registration [id number] 11/10/2019 15:20:00 ACT Outpatient ELIZABETH LEON, [place] [facility] [id number] 10/10/2019 09:40:00 Document Registration [id number] 08/30/2019 10:00:00 Document Registration [id number] 05/03/2018 09:20:00 Document Registration [id number] 03/23/2018 08:40:00 Document Registration [id number] 04/13/2017 08:40:00 Document Registration
--- OUTSIDE RECORDS SUMMARY | 2019-11-11 19:16 | XMS REPORT ---
Author [place] [employer] Address Unknown Phone Unavailable Care Team Providers Care Lead Business Systems Analyst Name Role Phone GUILLERMO MCCORD CP Unavailable Allergies, Adverse Reactions, Alerts Substance Reaction Event Type Codeine Sulfate disoriented Drug Allergy Problems Problem Type Condition Code Onset Dates Condition Statu s Assessment Posttraumatic stress disorder F43.10 Active Assessment Bipolar 2 disorder F31.81 Active Assessment Attention deficit disorder F90.0 A ctive Assessment Social anxiety disorder F40.10 Acti ve Problem Hypertension I10 Active Problem Hyperlipidemia E78.5 Active Problem Gastroesophageal reflux disease without esophagitis K2 1.9 Active Problem Posttraumatic stress disorder F43.10 Active Problem Attention deficit disorder F90.0 A ctive Problem Social anxiety disorder F40.10 Acti ve Problem Bipolar 2 disorder F31.81 Active Medications Medication Code System Code Instructions Start Date End Date Status Dosage Anusol-HC [facility] [address]-60 25 mg September 23, 2014 b y Rectal route 2 times per day Omeprazole [facility] [address]-02 20 mg Orally Once a day May 01, 2014 1 capsule Adderall [facility] [address]-47 20 mg Orally in the AM & 1pm for ADHD Dr. Barron to sign for Rafaela September 16, 2014 1 tablet Lamotrigine [facility] [id number] 100 MG Orally In the evening 1 tablet Vitamin D3 [facility] [address]-24 5000 UNIT Orally Once a day May 01 4 2 Capsule 1 time per day take one tablet orally daily Colace [facility] [address]-94 100 mg May 01, 2014 1 ca psule by Oral route 2 times per day PRN Adderall [facility] [address]-85 5 mg Orally Oat 4pm for ADHD January 13 6 1 tablet in the morning Atorvastatin Calcium [facility] [id number] 20 MG Orally Once a day 1 tablet Viagra [facility] [address]-25 50 MG Orally PRN November 04, 2014 1 tablet as needed Multivitamin [facility] 21210-[address]8667 May 01, 2014 1 tablet by Oral route 1 time per day Lisinopril [facility] [address]-69 20 MG Orally Once a day Jul 07, 2015 1 tablet Vitamin C [facility] [address]-05 500 mg May 01, 2014 1 tablet by Oral route 1 time per day Skelaxin [facility] [address]-05 800 mg September 11, 2014 1 Tablet by Oral route 3- 4 times per day PRN muscle spasm Aspirin [facility] [address]-73 325 mg May 01, 2014 1 ta blet by Oral route 1 time per day Sudafed [facility] [address]-88 60 mg Orally every 6 hrs October 08, 2015 1 tablet as needed Procedures Procedure Coding System Code Date Office Visit, Est Pt., Level 4 CPT-4 72445 January 14, 2016 Vital Signs Date/Time: January 14, 2016 Cardiac Monitoring Heart Rate 120 bpm Weight 145.9 lbs Height 64 in Blood Pressure Diastolic 85 mmHg Blood Pressure Systolic 124 mmHg Results No Known Results Summary Purpose eClinicalWorks Submission
--- OUTSIDE RECORDS SUMMARY | 2019-11-11 19:16 | XMS REPORT ---
Author [place] [employer] Address Unknown Phone Unavailable Care Team Providers Care Chocolate Molder Name Role Phone GUILLERMO MCCORD CP Unavailable Allergies, Adverse Reactions, Alerts Substance Reaction Event Type Codeine Sulfate disoriented Drug Allergy Problems Problem Type Condition ICD-9 Code Onset Dates Condition Statu s Problem Social phobia 300.23 Active Problem Anal fissure 565.0 Active Problem Other and unspecified bipolar disorders 296.89 Active Problem Bipolar II disorder 296.89 Active Problem Other malaise and fatigue 780.79 Ac tive Problem Migraines 346.90 Active Problem Reflux esophagitis 530.11 Active Problem Blood in stool 578.1 Active Problem Disturbance of skin sensation 782.0 Active Problem Other and unspecified hyperlipidemia 272.4 Active Assessment Posttraumatic stress disorder 309.81 Active Assessment Bipolar II disorder 296.89 Active Assessment Attention deficit disorder o f childhood without mention of hyperactivity 314.00 Active Problem Attention deficit disorder o f childhood without mention of hyperactivity 314.00 Active Assessment Social phobia 300.23 Active Problem Posttraumatic stress disorder 309.81 Active Medications Medication Code System Code Instructions Start Date End Date Status Dosage Latuda [facility] 87634608161 20MG Orally Once a day 1 tablet by Oral route 1 time per day in the evening with 350 kcal Omeprazole [facility] [address]-91 20 mg May 01, 2014 ta ke 1 capsule (20 mg) by oral route once daily before a meal Guanfacine HCl [facility] [address]-70 2 MG Orally Once at HS 1 tablet 1 time per day BuPROPion HCl [facility] [address]-05 100 MG Orally Twice a day September 11, 2014 1 tablet Adderall [facility] [address]-66 20 MG Orally in the AM & 1pm for ADHD September 16, 2014 1 tablet Vitamin D3 [facility] 97398-[address]150 1,000 unit May 01, 2014 2 Capsule 1 time per day take one tablet orally daily Colace [facility] [address]-23 100 mg May 01, 2014 1 ca psule by Oral route 2 times per day PRN BusPIRone HCl [facility] [address]-30 30 MG Orally Twice a day for anxiety 1 tablet atorvastatin [facility] 0 20 mg Once a day May 01, 2014 take 1 tablet by Oral route 1 time per day QHS; Avoid grapefruit juice Multivitamin [facility] 00256-[address]43 May 01, 2014 1 tablet by Oral route 1 time per day Propranolol HCl [facility] [address]-87 10 MG Orally Once a day November 05 15 1 tablet Vitamin C [facility] [address]-38 500 mg May 01, 2014 1 tablet by Oral route 1 time per day Anusol-HC [facility] [address]-25 25 mg September 23, 2014 b y Rectal route 2 times per day Aspirin [facility] [address]-42 325 mg May 01, 2014 1 ta blet by Oral route 1 time per day Viagra [facility] [address]-98 50 MG Orally PRN November 04, 2014 1 tablet as needed Procedures Procedure Coding System Code Date Office Visit, Est Pt., Level 4 CPT-4 44234 A 2014 Vital Signs Date/Time: Feb 19, 2015 Temperature 98.0 F Weight 144.9 lbs Height 64 in BMI 24.87 Index Blood Pressure Diastolic 88 mmHg Blood Pressure Systolic 118 mmHg Cardiac Monitoring Heart Rate 88 bpm Results No Known Results Summary Purpose [employer]ClinicalWorks Submission
--- OUTSIDE RECORDS SUMMARY | 2019-11-11 19:16 | XMS REPORT ---
Author [place] [facility] [employer] Address Unknown Phone Unavailable Care Team Providers Care Visual Effects Artist Name Role Phone FALLON JOHNSON CP Unavailable [...] Problem Posttraumatic stress disorder F43.10 Active Assessment Hyperlipidemia E78.5 Active Problem Anal fissure 565.0 Active Problem Blood in stool 578.1 Active Problem Reflux esophagitis 530.11 Active Medications No Known Medications Procedures Procedure Coding System Code Date COMPREHEN METABOLIC PANEL CPT-4 48049 Jul VENIPUNCT, ROUTINE* CPT-4 57469 Jul 09, 2015 LIPID PANEL CPT-4 18203 Jul 09, 2015 Results Name Result Date Reference Range Unit Abnormali ty Flag ROUTINE VENIPUNCTURE Summary Purpose eClinicalWorks Submission
--- OUTSIDE RECORDS SUMMARY | 2019-11-11 19:16 | XMS REPORT ---
Author Author [place] [facility] Organization [facility] Address [address] [place] [address] Care Team Providers Care Cattle Broker Name Role Phone GUILLERMO MCCORD Unavailable PROBLEMS Type Condition ICD9-CM Code [id number] Code Onset Dates Condition S tatus SNOMED Code Problem Posttraumatic stress disorder F43.10 Active 00469838 Problem Attention deficit disorder F90.0 Act shalom 462326764 Problem Bipolar 2 disorder F31.81 Active 8 7482860 Problem Chronic post-traumatic stress disorder (PTSD) F43. 12 Active 627198739 Problem Urinary hesitancy R39.11 Active 59 16922 Problem Hyperlipidemia E78.5 Active 55753 004 Problem Social anxiety disorder F40.10 Active 60591990 Problem Gastroesophageal reflux disease without esophagitis K21.9 Active 771404491 Problem Hypertension I10 Active 4157701 3 ALLERGIES Unknown Allergies SOCIAL HISTORY No smoking Hx information available PLAN OF CARE Activity Details Follow Up 3 Months Reason: VITAL SIGNS Height 64 in 2016-06-28 Weight 147 lbs 2016-06-28 Heart Rate 78 bpm 2016-06-28 Respiratory Rate 18 2016-06-28 BMI 25.23 kg/m2 2016-06-28 Blood pressure systolic 142 mmHg 2016-06-28 Blood pressure diastolic 92 mmHg 2016-06-28 MEDICATIONS Medication Instructions Dosage Frequency Start Date End Date Duration S tatus Vitamin D3 5000 UNIT Orally Once a day 2 Capsule 1 time pe r day take one tablet orally daily 24h 30 Apr, 2014 Active Atorvastatin Calcium 20 MG Orally Once a day 1 tablet 24h 30 Active Skelaxin 800 mg 1 Tablet by Oral route 3-4 times per d ay PRN muscle spasm Aug, Active Anusol-HC 25 mg by Rectal route 2 times per day Aug, Active Adderall 20 mg Orally in the AM &1pm for ADHD 1 tablet Jun, 016 Active Viagra 50 MG Orally PRN 1 tablet as needed October, Active HydrOXYzine Pamoate 25 MG Orally 2 times a day as need for a nxiety 1 capsule as needed Jun, Active Aspirin 325 mg 1 tablet by Oral route 1 time per day Apr, Active Omeprazole 20 mg Orally Once a day 1 capsule 24h 30 Apr, 2014 Active Lisinopril 20 MG Orally Once a day 1 tablet 24h 30 Active Sudafed 60 mg Orally every 6 hrs 1 tablet as needed 6h 07 Oct, 2015 Active Multivitamin 1 tablet by Oral route 1 time per day 2013 Active Vitamin C 500 mg 1 tablet by Oral route 1 time per day 3 0 Apr, 2014 Active Adderall 5 mg Orally at 4pm for ADHD 1 tablet Jun, Active Colace 100 mg 1 capsule by Oral route 2 times per day PRN Apr, Active Lamotrigine 100 MG TAKE ONE TABLET BY MOUTH IN THE EVENING Active RESULTS No Results PROCEDURES Procedure Date Ordered Related Diagnosis Body Site Office Visit, Est Pt., Level 4 Jun 28, 2016 IMMUNIZATIONS No Known Immunizations
--- OUTSIDE RECORDS SUMMARY | 2019-11-11 19:16 | XMS REPORT ---
Author Author [place] [facility] [employer] Address Unknown Phone Unavailable Care Team Providers Care Ux Designer Name Role Phone GUILLERMO MCCORD CP Unavailable [...] End Date Status Dosage Adderall [facility] [address]-99 20 MG Orally in the AM & 1pm for ADHD Dr. Barron to sign for Rafaela September 16, 2014 1 tablet Results No Known Results Summary Purpose eClinicalWorks Submission
--- OUTSIDE RECORDS SUMMARY | 2019-11-11 19:16 | XMS REPORT ---
Author Author [place] Organization [facility] Address [address] [place] [address] Care Team Providers Care Hacksaw Inspector Name Role Phone FLEX GUILLERMO Unavailable PROBLEMS Type Condition ICD9-CM Code [id number] Code Onset Dates Condition S tatus SNOMED Code Problem Social anxiety disorder F40.10 Active 91767110 Problem Hyperlipidemia E78.5 Active 76199 004 Problem Hypertension I10 Active 5535141 3 Problem Posttraumatic stress disorder F43.10 Active 34104224 Problem Bipolar 2 disorder F31.81 Active 8 4768382 Problem Attention deficit disorder F90.0 Act shalom 176150194 Problem Lumbago with sciatica, right side M54.41 Active [id number] Problem Lumbago with sciatica, left side M54.42 Active 426270674 Problem Urinary hesitancy R39.11 Active 59 98437 Problem Gastroesophageal reflux disease without esophagitis K21.9 Active 961671740 Problem Other chronic pain G89.29 Active 8 6454564 Problem Chronic post-traumatic stress disorder (PTSD) F43. 12 Active [id number] ALLERGIES No Information ENCOUNTERS Encounter Location Date Diagnosis [facility] [address] [facility] [id number] [address] [place] [id number] Dec, [facility] [address] [facility] [id number] [address] [place] [phone] Dec, Upper respiratory tract infe ction, unspecified type J06.9 [facility] [address] [facility] [id number] [address] [place] [phone] October, [facility] [address] [facility] [id number] [address] [place] [phone] Oct, Bipolar 2 disorder F31.81 ; Attention deficit disorder F90.0 ; Social anxiety disorder F40.10 and Chronic post-traumatic stress disorder (PTSD) F43.12 [facility] [address] [id number] [address] [place] [phone] Oct, [facility] [address] [id number] [address] [place] [phone] Oct, [facility] [address] [facility] [id number] [address] [place] [phone] Aug, [facility] [address] [facility] [id number] [address] [place] [phone] Aug, [facility] [address] [facility] [id number] [address] [place] [phone] Jul, Strain of lumbar region, ini tial encounter S39.012A [facility] [address] [facility] [id number] [address] [place] [phone] Jul, Lumbago with sciatica, left side M54.42 and Lumbago with sciatica, right side M54.41 [facility] [address] [facility] [id number] [address] [place] [phone] Jul, Low back pain M54.5 and Othe r chronic pain G89.29 [facility] [address] [facility] [id number] [address] [place] [phone] Jul, [facility] [address] [facility] [id number] [address] [place] [phone] Jul, Bipolar 2 disorder F31.81 ; Attention deficit disorder F90.0 and Social anxiety disorder F40.10 [facility] [address] [id number] [address] [place] [phone] Jun, [facility] [address] [facility] [id number] [address] [place] [phone] May, [facility] [address] [facility] [id number] [address] [place] [phone] Apr, Bipolar 2 disorder F31.81 ; Attention deficit disorder F90.0 ; Social anxiety disorder F40.10 and Chronic post-traumatic stress disorder (PTSD) F43.12 [facility] [address] [facility] [id number] [address] [place] [phone] Apr, [facility] [address] [facility] [id number] [address] [place] [phone] Apr, Hyperlipidemia E78.5 [facility] [address] [facility] [id number] [address] [place] [phone] Mar, Encounter for immunization Z 23 and Tinea cruris B35.6 [facility] [address] [facility] [id number] [address] [place] [id number] 15 Mar, 2017 [facility] [address] [facility] [id number] [address] [place] [phone] Jan, [facility] [address] [facility] [id number] [address] [place] [phone] Dec, [facility] [address] [facility] [id number] [address] [place] [phone] Dec, [facility] [address] [facility] [id number] [address] [place] [id number] Dec, Bipolar 2 disorder F31.81 ; Social anxiety disorder F40.10 and Attention deficit disorder F90.0 [facility] [address] [facility] [id number] [address] [place] [phone] Dec, [facility] [address] [facility] [id number] [address] [place] [phone] Dec, Hypertension I10 [facility] [address] [facility] [id number] [address] [place] [phone] October, [facility] [address] [facility] [id number] [address] [place] [phone] Oct, [facility] [address] [facility] [id number] [address] [place] [phone] Oct, Nasal congestion R09.81 [facility] [address] [facility] [id number] [address] [place] [phone] Oct, Social anxiety disorder F40. 10 ; Bipolar 2 disorder F31.81 and Attention deficit disorder F90.0 [facility] [address] [facility] [id number] [address] [place] [phone] Aug, [facility] [address] [facility] [id number] [address] [place] [phone] Aug, [facility] [address] [facility] [id number] [address] [place] [id number] Jul, Nasal congestion R09.81 [facility] [address] [facility] [id number] [address] [place] [phone] Jul, [facility] [address] [place] [id number] [address] [place] [id number] Jun, Bipolar 2 disorder F31.81 ; Attention deficit disorder F90.0 ; Social anxiety disorder F40.10 and Chronic post-traumatic stress disorder (PTSD) F43.12 [facility] [address] [place] [id number] [address] [place] [phone] Jun, [facility] [address] [place] [id number] [address] [place] [phone] May, [facility] [address] [place] [id number] [place] [id number] 14 Apr, 2016 Attention deficit disorder F 90.0 [facility] [address] [place] [id number] [address] [place] [phone] Apr, Urinary hesitancy R39.11 ; H yperlipidemia E78.5 and Encounter for immunization Z23 [facility] [address] [facility] [id number] [address] [place] [phone] Apr, [facility] [address] [place] [id number] [address] [place] [phone] 16 Mar, 2016 [facility] [address] [place] [id number] [address] [place] [phone] Jan, [facility] [address] [place] [id number] [address] [place] [phone] Dec, [facility] [address] [facility] [id number] [address] [place] [phone] Dec, [facility] [address] [facility] [id number] [address] [place] [phone] Dec, Bipolar 2 disorder F31.81 ; Attention deficit disorder F90.0 ; Posttraumatic stress disorder F43.10 and Social anxiety disorder F40.10 [facility] [address] [id number] [address] [place] [phone] Dec, Scabies exposure Z20.89 and Scabies B86 [facility] [address] [facility] [id number] [address] [place] [phone] Dec, [facility] [address] [facility] [id number] [address] [place] [phone] Dec, Hypertension I10 and Gastroe sophageal reflux disease without esophagitis K21.9 [facility] [address] [facility] [id number] [address] [place] [phone] October, [facility] [address] [facility] [id number] [address] [place] [phone] October, [facility] [address] [facility] [id number] [address] [place] [id number] Oct, Bipolar 2 disorder F31.81 ; Posttraumatic stress disorder F43.10 ; Attention deficit disorder F90.0 and Social anxiety disorder F40.10 [facility] [address] [facility] [id number] [address] [place] [phone] Oct, [facility] [address] [facility] [id number] [address] [place] [id number] Oct, Hypertension I10 and Nasal c ongestion R09.81 [facility] [address] [facility] [id number] [address] [place] [phone] Aug, [facility] [address] [facility] [id number] [address] [place] [phone] Aug, [facility] [address] [facility] [id number] [address] [place] [phone] Aug, [facility] [address] [place] [id number] [address] [place] [phone] Aug, [facility] [address] [place] [id number] [place] [phone] Aug, [facility] [address] [place] [id number] [place] [phone] Aug, Hypertension I10 and Tremor R25.1 [facility] [address] [place] [id number] [place] [address] Aug, Bipolar 2 disorder F31.81 ; Posttraumatic stress disorder F43.10 ; Attention deficit disorder F90.0 and Social anxiety disorder F40.10 [facility] [address] [phone] Jul, [facility] [address] [phone] Jul, Hyperlipidemia E78.5 [facility] [address] [place] [id number] [place] [address] Jul, Hypertension I10 and Hyperli pidemia E78.5 [facility] [address] [place] [id number] [address] [place] [address] Jun, Bipolar 2 disorder F31.81 ; Posttraumatic stress disorder F43.10 ; Attention deficit disorder F90.0 and Social anxiety disorder F40.10 [facility] [address] [place] [id number] [address] [place] [phone] May, [facility] [address] [place] [id number] [place] [phone] May, [facility] [address] [place] [id number] [address] [place] [address] Apr, Bipolar 2 disorder F31.81 ; Posttraumatic stress disorder F43.10 ; Attention deficit disorder F90.0 and Social phobia F40.10 [facility] [address] [facility] [id number] [address] [place] [phone] Apr, Bipolar 2 disorder F31.81 ; Posttraumatic stress disorder F43.10 and Attention deficit disorder F90.0 [facility] [address] [facility] [id number] [address] [place] [phone] Apr, [facility] [address] [id number] [address] [place] [phone] Apr, [facility] [address] [facility] [id number] [address] [place] [phone] Apr, [facility] [address] [facility] [id number] [address] [place] [phone] Mar, [facility] [address] [facility] [id number] [address] [place] [phone] Mar, [facility] [address] [facility] [id number] [address] [place] [phone] Jan, [facility] [address] [facility] [id number] [address] [place] [phone] Jan, [facility] [address] [facility] [id number] [address] [place] [phone] Jan, Bipolar II disorder 296.89 ; Posttraumatic stress disorder 309.81 ; Social phobia 300.23 and Attention deficit disorder of childhood without mention of hyperactivity 314.00 [facility] [address] [facility] [id number] [address] [place] [phone] Jan, Other and unspecified bipola r disorders 296.89 ; Posttraumatic stress disorder 309.81 and Attention deficit disorder of childhood without mention of hyperactivity 314.00 [facility] [address] [facility] [id number] [address] [place] [phone] Jan, [facility] [address] [facility] [id number] [address] [place] [phone] Dec, Other and unspecified bipola r disorders 296.89 ; Posttraumatic stress disorder 309.81 and Attention deficit disorder of childhood without mention of hyperactivity 314.00 [facility] [address] [facility] [id number] [address] [place] [phone] Dec, Migraines 346.90 [facility] [address] [facility] [id number] [address] [place] [phone] Dec, Other and unspecified bipola r disorders 296.89 ; Posttraumatic stress disorder 309.81 and Attention deficit disorder of childhood without mention of hyperactivity 314.00 [facility] [address] [id number] [address] [place] [phone] Dec, [facility] [address] [facility] [id number] [address] [place] [phone] Dec, Bipolar II disorder 296.89 ; Social phobia 300.23 ; Posttraumatic stress disorder 309.81 and Attention deficit disorder of childhood without mention of hyperactivity 314.00 [facility] [address] [facility] [id number] [address] [place] [phone] Dec, Other and unspecified bipola r disorders 296.89 ; Posttraumatic stress disorder 309.81 and Attention deficit disorder of childhood without mention of hyperactivity 314.00 [facility] [address] [facility] [id number] [address] [place] [address] October, Other and unspecified bipola r disorders 296.89 ; Posttraumatic stress disorder 309.81 and Attention deficit disorder of childhood without mention of hyperactivity 314.00 [facility] [address] [facility] [id number] [address] [place] [phone] October, [facility] [address] [facility] [id number] [address] [place] [id number] October, [facility] [address] [facility] [id number] [address] [place] [phone] October, [facility] [address] [facility] [id number] [address] [place] [phone] October, [facility] [address] [facility] [id number] [address] [place] [phone] October, Attention deficit disorder o f childhood without mention of hyperactivity 314.00 ; Posttraumatic stress disorder 309.81 ; Social phobia 300.23 and Other and unspecified bipolar disorders 296.89 [facility] [address] [id number] [address] [place] [phone] 14 Oct, 2014 [facility] [address] [id number] [address] [place] [phone] Oct, [facility] [address] [id number] [address] [place] [phone] Aug, [facility] [address] [id number] [address] [place] [phone] Aug, [facility] [address] [id number] [address] [place] [phone] Aug, [facility] [address] [id number] [address] [place] [phone] Aug, [facility] [address] [id number] [address] [place] [phone] Aug, [facility] [address] [id number] [address] [place] [phone] Aug, [facility] [address] [facility] [id number] [address] [place] [phone] Aug, [facility] [address] [id number] [address] [place] [phone] Aug, [facility] [address] [id number] [address] [place] [phone] Aug, [facility] [address] [id number] [address] [place] [phone] Aug, [facility] [address] [id number] [address] [place] [phone] Aug, [facility] [address] [facility] [id number] [address] [place] [phone] Aug, [facility] [address] [id number] [address] [place] [address], [place] [address] 12 Aug, 2014 [facility] [address] [id number] [address] [place] [address], [place] [address] Aug, [facility] [address] [id number] [address] [place] [address], [place] [address] Aug, [facility] [address] [id number] [address] [place] [address], [place] [address] Aug, [facility] [address] [id number] [address] [place] [address], [place] [address] Aug, [facility] [address] [id number] [address] [place] [address], [place] [address] Aug, [facility] [address] [id number] [address] [place] [address], [place] [address] Aug, [facility] [address] [id number] [address] [place] [address], [place] [address] Aug, [facility] [address] [id number] [address] [place] [address], [place] [address] Aug, [facility] [address] [id number] [address] [place] [address], [place] [address] Aug, [facility] [address] [id number] [address] [place] [address], [place] [address] Aug, [facility] [address] [id number] [address] [place] [address], [place] [address] Aug, [facility] [address] [id number] [address] [place] [address], [place] [address] Aug, [facility] [address] [id number] [address] [place] [address], [place] [address] Aug, [facility] [address] [id number] [address] [place] [address], [place] [address] Aug, [facility] [address] [id number] [address] [place] [address], [place] [address] Aug, [facility] [address] [id number] [address] [place] [address], [place] [address] Aug, [facility] [address] [id number] [address] [place] [address], [place] [address] Aug, [facility] [address] [id number] [address] [place] [address], [place] [address] Jul, [facility] [address] [id number] [address] [place] [address], [place] [address] Jul, [facility] [address] [id number] [address] [place] [address], [place] [address] Jul, [facility] [address] [id number] [address] [place] [address], [place] [address] Jul, [facility] [address] [id number] [address] [place] [address], [place] [address] Jul, [facility] [address] [id number] [address] [place] [address], [place] [address] Jul, [facility] [address] [id number] [address] [place] [address], [place] [address] Jul, [facility] [address] [id number] [address] [place] [address], [place] [address] Jul, [facility] [address] [id number] [address] [place] [address], [place] [address] Jun, [facility] [address] [id number] [address] [place] [address], [place] [address] Jun, [facility] [address] [id number] [address] [place] [address], [place] [address] Jun, [facility] [address] [id number] [address] [place] [address], [place] [address] Jun, [facility] [address] [id number] [address] [place] [address], [place] [address] May, [facility] [address] [id number] [address] [place] [phone] May, [facility] [address] [facility] [id number] [address] [place] [phone] May, [facility] [address] [facility] [id number] [address] [place] [phone] May, [facility] [address] [facility] [id number] [address] [place] [phone] May, [facility] [address] [facility] [id number] [address] [place] [phone] Apr, [facility] [address] [facility] [id number] [address] [place] [phone] Apr, IMMUNIZATIONS No Known Immunizations SOCIAL HISTORY Never Assessed REASON FOR VISIT vyvanse 07/13/2017 PLAN OF CARE VITAL SIGNS MEDICATIONS Medication Instructions Dosage Frequency Start Date End Date Duration S tatus Vyvanse 30 MG Orally Once a day for ADHD 1 capsule in the morning Jul, 28 days Active RESULTS No Results PROCEDURES No Known procedures INSTRUCTIONS MEDICATIONS ADMINISTERED No Known Medications MEDICAL (GENERAL) HISTORY Type Description Date Medical History Hypertension Medical History GERD Medical History Bipolar Surgical History Hernia right ingual Surgical History Colonoscopy october 2014 Hospitalization History surgeries Hospitalization History ER for dehydration and vomitting 10/04/15
--- OUTSIDE RECORDS SUMMARY | 2019-11-11 19:16 | XMS REPORT ---
Author Author [place] Organization [facility] Address [address] [place] [address] Care Team Providers Care Pallet Sorter Name Role Phone GUILLERMO MCCORD Unavailable PROBLEMS Type Condition ICD9-CM Code VIL56-HO Code Onset Dates Condition S tatus SNOMED Code Problem Posttraumatic stress disorder F43.10 Active 17374962 Problem Attention deficit disorder F90.0 Act shalom 226384901 Problem Bipolar 2 disorder F31.81 Active 8 6630119 Problem Chronic post-traumatic stress disorder (PTSD) F43. 12 Active 796801879 Problem Urinary hesitancy R39.11 Active 59 00435 Problem Hyperlipidemia E78.5 Active 71385 004 Problem Social anxiety disorder F40.10 Active 86311682 Problem Gastroesophageal reflux disease without esophagitis K21.9 Active 410440821 Problem Hypertension I10 Active 1849978 3 ALLERGIES No Information SOCIAL HISTORY Never Assessed PLAN OF CARE VITAL SIGNS MEDICATIONS Medication Instructions Dosage Frequency Start Date End Date Duration S tatus Adderall 5 mg Orally at 4pm for ADHD 1 tablet October, 28 days Active Adderall XR 30 MG Orally for ADHD 1 capsule in the morning 0 October, 28 days Active RESULTS No Results PROCEDURES No Known procedures IMMUNIZATIONS No Known Immunizations MEDICAL (GENERAL) HISTORY Type Description Date Medical History Hypertension Medical History GERD Medical History Bipolar Surgical History Hernia right ingual Surgical History Colonoscopy october 2014 Hospitalization History surgeries Hospitalization History ER for dehydration and vomitting 10/04/15
== END 2019-11-11 16:49 | disposition home or self-care (01) ==
LOC: EDUNIT# 14:55 → ER 14:56
DX: M54.5 Low back pain (principal); I10 Essential (primary) hypertension; E78.00 Pure hypercholesterolemia, unspecified; F90.9 Attention-deficit hyperactivity disorder, unspecified type; Z88.5 Allergy status to narcotic agent; X50.1XXA Overexertion from prolonged static or awkward postures, initial encounter
CPT/HCPCS: 36415; 72131; 80048; 85025; 86141